=== PATIENT | male | born 1940 | race Caucasian/White ===

== ENCOUNTER 2022-01-20 09:30 | Outpatient (CLI) | payer MEDICARE, SELFPAY ==
[2022-01-20 14:23] LABS: SARS PCR* POSITIVE SARS-CoV-2 (Negative)
== END 2022-01-20 09:31 | disposition home or self-care (01) ==
LOC: KYNREF 09:31
PROVIDERS: PCP Nurse Practitioner Family; Visit Provider Nurse Practitioner Family
DX: U07.1 COVID-19 (principal); J02.9 Acute pharyngitis, unspecified
CPT/HCPCS: 87635

== ENCOUNTER 2022-02-03 15:00 | Outpatient (CLI) | payer MEDICARE, SELFPAY ==
--- OUTSIDE RECORDS SUMMARY | 2022-02-03 15:04 | XMS_ITS | Encounter Summary ---
:1940 Author Organization [facility] Address [address] [place] [address] Care Team Providers Name Role Phone Lexus Fowler M.D., M.P.H. 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 Maintenance Health Adult in [address] [facility] [address] [place], [place] [phone] (Work) [phone] Social History Tobacco Use Types Packs/Day Years Used Date Smoking Tobacco: Never Smokeless Tobacco: Never Alcohol Use Standard Drinks/Week Comments Yes 0 (1 standard drink = 0.6 oz pure alcoho l) Alcohol Habits Answer Date Recorded How often do you have a drink containing alcohol? Monthly or less 10/29/2020 How many drinks containing alcohol do you have on a Patient refused 10/29/2020 typical day when you are drinking? How often do you have six or more drinks on one Never 10/29/2020 occasion? Comment: Not asked Social Isolation Answer Date Recorded In a typical week, how many times do you talk on the Patient refused 10/29/2020 phone with family, friends, or neighbors? How often do you get together with friends or Twice a week 10/29/2020 relatives? How often do you attend hinduism or taoist services? Patien t refused 10/29/2020 Do you belong to any clubs or organizations such as Nabil borrero hinduism groups, unions, fraternal or athletic groups, or school groups? How often do you attend meetings of the clubs or Never 10/29/2020 organizations you belong to? Are you now , , , , 10/29/2020 never or living with a partner? Physical Activity Answer Date Recorded On average, how many days per week do you engage in moderate 4 days 10/29/2020 to strenuous exercise (like walking fast, running, jogging, dancing, swimming, biking, or other activities that cause a light or heavy sweat)? On average, how many minutes do you engage in exercise at No t asked this level? Stress Answer Date Recorded Do you feel stress - tense, restless, nervous, or anxious, N ot at all 10/29/2020 or unable to sleep at night because your mind is troubled all the time - these days? Financial Resource Strain Answer Date Recorded How hard is it for you to pay for the very basics like Not h oscar at all 10/29/2020 food, housing, medical care, and heating? Intimate Partner Violence Answer Date Recorded Within the last year, have you been afraid of your partner o r No 10/29/2020 ex-partner? Within the last year, have you been humiliated or emotionall y No 10/29/2020 abused in other ways by your partner or ex-partner? Within the last year, have you been kicked, hit, slapped, or No 10/29/2020 otherwise physically hurt by your partner or ex-partner? Within the last year, have you been raped or forced to have any No 10/29/2020 kind of sexual activity by your partner or ex-partner? Food Insecurity Answer Date Recorded Within the past 12 months, you worried that your food Never true 10/29/2020 would run out before you got money to buy more. Within the past 12 months, the food you bought just Patient refused 10/29/2020 didn't last and you didn't have money to get more. Transportation Needs Answer Date Recorded In the past 12 months, has lack of transportation kept you f rom No 10/29/2020 medical appointments or from getting medications? In the past 12 months, has lack of transportation kept you f rom No 10/29/2020 meetings, work, or getting things needed for daily living? Housing Stability Answer Date Recorded In the last 12 months, was there a time when you were not ab le No 10/29/2020 to pay the mortgage or rent on time? In the last 12 months, how many places have you lived? 1 10/29/2020 In the last 12 months, was there a time when you did not hav e a No 10/29/[address] sleep or slept in a usp (including now)? Education Answer Date Recorded What is the highest level of school you have completed or 12 th grade 10/29/2020 the highest degree you have received? Sex Assigned at Date Recorded Not on file documented as of this encounter Medications at Time of Discharge Medication Sig Dispensed Refills Start Date End Date amoxicillin (AMOXIL) 500 mg Take 500 mg by 0 01/15 capsule mouth once. Take 4 capsules 2 hours prior to dental procedure. ascorbic acid, vitamin C, Take 1 tablet by 0 12/15 (ascorbic acid with lacey mouth at bedtime. hips) 500 mg tablet ASPIRIN LOW DOSE ORAL Take 1 capsule by 0 017 mouth daily. B complex-vitamin (SUPER Take 1 tablet by 0 09/16 B-50) capsule mouth. blood sugar diagnostic 1 test daily. for 100 strip 3 2020 (OneTouch Ultra Blue Test testing, may Strip) strips substitute brand as needed and as covered by insurance blood-glucose meter [facility] 1 each daily. 1 each 0 08/20/19 21 calcium carbonate-vitamin Take 1 tablet by 0 09/14 D3 (CALCIUM 600 + D,3,) mouth 2 (two) 1,500 mg (600 mg times a day. calcium)-400 unit per tablet DOCOSAHEXANOIC ACID/EPA Take 1 capsule by 0 11/15 (FISH OIL ORAL) mouth 2 (two) times a day. 1200 mg capsule garlic capsule Take 1 capsule by 0 12/11/2008 mouth daily. 1200 mg ketoconazole (NIZORAL) 2 % Apply topically 0 02/14 shampoo as directed. Wash as directed; shampoo twice a week for four weeks, then use intermittently. lancets To check daily 100 each 3 08/19/2020 blood glucose MULTIVITAMIN (MULTIPLE Take 1 tablet by 0 009 VITAMINS ORAL) mouth daily. UNABLE TO FIND Diabetic 0 01/17/2020 inserts/Medicare UNABLE TO FIND Diabetic shoes/ 0 01/17/2020 Medicare MIS vitamin E 400 unit capsule Take 1 capsule by 0 mouth daily. amLODIPine (NORVASC) 5 mg Take 1 tablet (5 90 tablet 3 01/1701/23/2021 tabletIndications: mg total) by Hypertension Essential mouth daily. Primary hydroCHLOROthiazide Take 1 tablet (50 90 tablet 3 0 01/23/2021 (HYDRODIURIL) 50 mg mg total) by tabletIndications: mouth daily. Hypertension Essential Primary losartan (COZAAR) 100 mg Take 1 tablet 90 tablet 3 02/14/20 20 01/23/2021 tabletIndications: (100 mg total) by Hypertension Essential mouth daily. Primary metFORMIN (GLUCOPHAGE) 500 Take 2 tablets 180 tablet 3 08/1601/23/2021 mg tabletIndications: (1,000 mg total) Diabetes Mellitus Type 2 by mouth 2 (two) With Diabetic Neuropathy times a day with (HCC) meals. rosuvastatin (CRESTOR) 10 Take 1 tablet (10 100 tablet 3 01/23/2021 mg tabletIndications: mg total) by Hyperlipidemia mouth daily. documented as of this encounter Plan of Treatment Not on filedocumented as of this encounter Procedures Procedure Name Priority Date/Time Associated Diagnosis Comme nts SODIUM, S/P Routine 01/21/2021 8:04 AM Diabetes Mellitus Resu lts for this CDT Type 2 With Diabetic procedu re are in Neuropathy (HCC) the results section. POTASSIUM, S/P Routine 01/21/2021 8:04 AM Diabetes Mellitus Re sults for this CDT Type 2 With Diabetic procedu re are in Neuropathy (HCC) the results section. HEMOGLOBIN A1C, B Routine 01/21/2021 8:04 AM Diabetes Mellitus Results for this CDT Type 2 With Diabetic procedu re are in Neuropathy (HCC) the results section. VITAMIN B12 ASSAY, S Routine 01/21/2021 8:04 AM Maintenance He alth Results for this CDT Adult procedure are i n the results section. CREATININE WITH Routine 01/21/2021 8:04 AM Diabetes Mellitus R esults for this EGFR, S/P CDT Type 2 With Diabetic procedu re are in Neuropathy (HCC) the results section. documented in this encounter Results Vitamin B12 Assay (01/21/2021 8:04 AM CDT) athologist Signature Vitamin B12 805 180 - 914 01/22/2021 DTL Assay, S ng/L 7:23 AM CDT Comment: ----ADDITIONAL INFORMATION---- In patients being evaluated for vitamin B12 deficiency who have intrinsic factor blocking antibodie s (IFBA), false elevations of B12 may occur due to IFBA interference thus potentially obscuring a physiological de ficiency of B12. If observed B12 concentrations are disco rdant with clinical presentation, measurement of methylmalon ic acid (MMA) should be considered. Specimen Anatomical Collection Method Collection Time Receive d Time (Source) Location / / Volume Laterality Blood (Blood, 01/21/2021 8:04 AM 01/22/20 Venous) CDT 12:53 PM CDT Lexus Fowler M.D., M.P.H. LAB BLOOD ADD-ON Performing Organization Address City/[facility]/ZIP Code Phon e Number [facility] - [address] [place], [place] [address] [facility] [place] [address] Laboratories-[facility] [address] (ABNORMAL) Hemoglobin A1c (01/21/2021 8:04 AM CDT) athologist Signature Hemoglobin A1c, 6.4 (H) 4.0 - 5.6 01/21/2021 DTL B % 1:33 PM CDT Comment: Hemoglobin A1c values of 5.7-6.4 percent indicate an increased risk for developing diabetes m patrickitus. In diabetic patients, HbA1c goals should be discussed with healthcare provider. Specimen Anatomical Collection Method Collection Time Receive d Time (Source) Location / / Volume Laterality Blood (Blood, 01/21/2021 8:04 AM 01/22/20 Venous) CDT 12:52 PM CDT Lexus Fowler M.D., M.P.H. LAB BLOOD ADD-ON Performing Organization Address City/State/ZIP Code Phon e Number [facility] - [address] [place], [place] [address] [facility] [place], [place] [id number] [place] [address] (ABNORMAL) Sodium (01/21/2021 8:04 AM CDT) athologist Signature Sodium, P 133 (L) 135 - 145 01/21/2021 DTL mmol/L 1:25 PM CDT Specimen Anatomical Collection Method Collection Time Receive d Time (Source) Location / / Volume Laterality Blood (Blood, 01/21/2021 8:04 AM 01/22/20 8:04 Venous) CDT AM CDT Lexus Fowler M.D., M.P.H. LAB BLOOD ADD-ON Performing Organization Address City/[facility] Phon e Number [facility] - [address] [place], [place] [address] [facility] [place], [place] [id number] [place] [address] Potassium (01/21/2021 8:04 AM CDT) athologist Signature Potassium, P 4.9 3.6 - 5.2 01/21/2021 DTL mmol/L 1:25 PM CDT Specimen Anatomical Collection Method Collection Time Receive d Time (Source) Location / / Volume Laterality Blood (Blood, 01/21/2021 8:04 AM 01/22/20 8:04 Venous) CDT AM CDT Lexus Fowler M.D., M.P.H. LAB BLOOD ADD-ON Performing Organization Address City/State/[facility] Code Phon e Number [facility] - [address] [place], [place] [address] [facility] [address] Creatinine with Estimated GFR (01/21/2021 8:04 AM CDT) athologist Signature Creatinine 1.13 0.74 - 01/21/2021 DTL 1.35 mg/dL 1:25 PM CDT eGFR-Black/Afric 70 >=60 01/21/2021 DTL an Nepalese mL/min/BSA 1:25 PM CDT Comment: ----ADDITIONAL INFORMATION---- Estimated GFR calculated using the 2009 CKD_EPI creatinine equation. eGFR Non-Black/ 61 >=60 mL/min/BSA 1:25 PM CDT DTL Comment: ----ADDITIONAL INFORMATION---- Estimated GFR calculated using the 2009 CKD_EPI creatinine equation. Specimen Anatomical Collection Method Collection Time Receive d Time (Source) Location / / Volume Laterality Blood (Blood, 01/21/2021 8:04 AM 01/22/20 8:04 Venous) CDT AM CDT Lexus Fowler M.D., M.P.H. LAB BLOOD ADD-ON Performing Organization Address City/State/ZIP Code Phon e Number [facility] - [address] [place] [address] [facility] [place] [address] Laboratories-[address] documented in this encounter Visit Diagnoses Diagnosis Diabetes Mellitus Type 2 With Diabetic N europathy ([facility]) Maintenance Health Adult documented in this encounter Care Teams Sorority Supervisor Relationship Specialty Start Date End Date Lexus Fowler M.D., M.P.H. PCP - General 11/14/18 11/13/21 [address] [place] [address] documented as of this encounter
--- OUTSIDE RECORDS SUMMARY | 2022-02-03 15:04 | XMS_ITS | Encounter Summary ---
:[address] [facility] Address [address] [place] [address] Care Team Providers Name Role Phone Lexus Fowler M.D., M.P.H. Primary Care Provider [phone] Encounter Details Date Type Department Care Team Description 01/22/2021 Orders Only Department of Family Lexus Fowler, Hyponatremia (Primary Medicine, [facility] Alonso, M.P. H. Dx) [facility], [place] [address] [place] [address] [address] [facility] [address] [place] [address] [phone] Social History Tobacco Use Types Packs/Day Years [...] 10/29/2020 relatives? How often do you attend evangelical or jainism services? Patien t refused 10/29/2020 Do you belong to any clubs or organizations such as Not aske d evangelical groups, unions, fraternal or athletic groups, or [...] place to sleep or slept in a [facility] (including now)? Education Answer Date Recorded What is the highest level of school you have completed or 12 th grade 10/29/2020 the highest degree you have received? Sex Assigned at Date Recorded Not on file documented as of this encounter Plan of Treatment Not on filedocumented as of this encounter Visit Diagnoses Diagnosis Hyponatremia - Primary documented in this encounter Care Teams Economic Adviser Relationship Specialty Start Date End Date Lexus Fowler M.D., M.P.H. PCP - General 11/14/18 11/13/21 [address] [place] [address] documented as of this encounter
--- OUTSIDE RECORDS SUMMARY | 2022-02-03 15:04 | XMS_ITS | Encounter Summary ---
:1940 Author Organization [facility] Address [address] [place] [address] Care Team Providers Name Role Phone Eliezer RYAN D.O., Fred P Primary Care Provider Reason for Visit Reason Comments Med Refill Encounter Details Date Type Department Care Team Description 11/19/2021 Refill Department of [facility] Med Duff M .D., Med Refill Medicine, [facility]on [facility] [address] [place] [address] [address] [place] [address] [place] [address] [phone] Social History Tobacco Use Types Packs/Day Years [...] 10/29/2020 relatives? How often do you attend shinto or advent services? Patien t refused 10/29/2020 Do you belong to any clubs or organizations such as Nabil borrero shinto groups, unions, fraternal or athletic groups, or [...] place to sleep or slept in a [place] [facility] (including now)? Education Answer Date Recorded What is the highest level of school you have completed or 12 th grade 10/29/2020 the highest degree you have received? Sex Assigned at Date Recorded Not on file documented as of this encounter Plan of Treatment Not on filedocumented as of this encounter Visit Diagnoses Diagnosis Hypertension Essential Primary documented in this encounter Care Teams Special Needs Child Caregiver Relationship Specialty Start Date End Date Marco Martins IV, D.OClarence PCP - General 11/14/21 [address] [place] [id number] documented as of this encounter
--- OUTSIDE RECORDS SUMMARY | 2022-02-03 15:04 | XMS_ITS | Encounter Summary ---
:1940 Author Organization [facility] Address [address] [place] [address] Care Team Providers Name Role Phone Lexus Fowler M.D., M.P.H. Primary Care Provider [phone] Encounter Details Date Type Department Care Team Description 01/01/2021 Orders Only Department of Family Lexus Fowler, [facility] Medicine, [facility] Alonso, M.P. H. Adult (Primary Dx) [facility] [place], in [address] [place] [address] [address] [facility] [address] [place] [address] [phone] Social History Tobacco Use Types Packs/Day Years [...] 10/29/2020 relatives? How often do you attend oriental orthodox or holiness services? Patien t refused 10/29/2020 Do you belong to any clubs or organizations such as Not aske d oriental orthodox groups, unions, fraternal or athletic groups, or [...] place to sleep or slept in a residential (including now)? Education Answer Date Recorded What is the highest level of school you have completed or 12 th grade 10/29/2020 the highest degree you have received? Sex Assigned at Date Recorded Not on file documented as of this encounter Plan of Treatment Not on filedocumented as of this encounter Results Vitamin B12 Assay (01/21/2021 8:04 AM CDT) athologist Signature Vitamin B12 809 695 - 690 01/22/2021 DTL Assay, S ng/L 7:23 AM [...] Laterality Blood (Blood, 01/21/2021 8:04 AM 01/22/20 21 Venous) CDT 12:53 PM CDT Lexus Fowler M.D., M.P.H. LAB BLOOD ADD-ON Performing Organization Address City/State/ZIP Code Phon e Number [facility] - [address] [place], [place] [address] [facility] [place] [address] Laboratories-[facility] [address] documented in this encounter Visit Diagnoses Diagnosis Maintenance Health Adult - Primary documented in this encounter Care Teams Credit Associate Relationship Specialty Start Date End Date Lexus Fowler M.D., M.P.H. PCP - General 11/14/18 11/13/[address] [place] [address] documented as of this encounter
--- OUTSIDE RECORDS SUMMARY | 2022-02-03 15:04 | XMS_ITS | Clinical Summary ---
:1940 Author Organization [facility] Address [address] [place] [address] Care Team Providers Name Role Phone Eliezer RYAN D.O., Fred P Primary Care Provider Source Comments Patient records contain information from all sites at [facility]. For routine questions regarding patient records, call [phone] during business hours, M-F 8:00 AM - 5:00 PM Central Time. Record requests for emergency care only can be directed to [phone] at any time.[facility] Allergies No known active allergies Medications Medication Sig Dispensed Refills Start Date End Date Status ASPIRIN LOW DOSE ORAL Take 1 capsule 0 09/11/2016 Active by mouth daily. calcium carbonate-vitamin Take 1 tablet 0 09/24/2009 Active D3 (CALCIUM 600 + D,3,) by mouth 2 1,500 mg (600 mg (two) times a calcium)-400 unit per day. tablet DOCOSAHEXANOIC ACID/EPA Take 1 capsule 0 11/15/2009 Active (FISH OIL ORAL) by mouth 2 (two) times a day. 1200 mg capsule garlic capsule Take 1 capsule 0 12/11/2008 Active by mouth daily. 1200 mg MULTIVITAMIN (MULTIPLE Take 1 tablet 0 09/05/2008 Active VITAMINS ORAL) by mouth daily. ketoconazole (NIZORAL) 2 Apply topically 0 7 Active % shampoo as directed. Wash as directed; shampoo twice a week for four weeks, then use intermittently. ascorbic acid, vitamin C, Take 1 tablet 0 12/25/2013 Active (ascorbic acid with lacey by mouth at hips) 500 mg tablet bedtime. vitamin E 400 unit Take 1 capsule 0 02/15/2008 Active capsule by mouth daily. B complex-vitamin (SUPER Take 1 tablet 0 09/16/2010 Active B-50) capsule by mouth. UNABLE TO FIND Diabetic 0 01/17/2020 Acti ve inserts/Medicar e UNABLE TO FIND Diabetic shoes/ 0 01/17/2020 Active Medicare MIS amoxicillin (AMOXIL) 500 Take 500 mg by 0 01/29/2020 Active mg capsule mouth once. Take 4 capsules 2 hours prior to dental procedure. lancets To check daily 100 each 3 08/19/2020 Acti ve blood glucose blood-glucose meter misc 1 each daily. 1 each 0 08/19/2020 Active blood sugar diagnostic 1 test daily. 100 strip 3 08/19/2020 Active (Training [employer] Blue Test for testing, Strip) strips may substitute brand as needed and as covered by insurance rosuvastatin (CRESTOR) 10 Take 1 tablet 100 tablet 3 1 Active mg tabletIndications: (10 mg total) Hyperlipidemia by mouth daily. metFORMIN (GLUCOPHAGE) TAKE 2 TABLETS 360 tablet 3 07/16/2021 Active 500 mg tabletIndications: BY MOUTH TWICE Diabetes Mellitus Type 2 DAILY WITH With Diabetic Neuropathy MEALS (HCC) hydroCHLOROthiazide TAKE 1 TABLET 90 tablet 3 11/20/2021 Active (HYDRODIURIL) 50 mg BY MOUTH DAILY tabletIndications: Hypertension Essential Primary amLODIPine (NORVASC) 5 mg TAKE 1 TABLET 90 tablet 3 11/20/2021 Active tabletIndications: BY MOUTH DAILY Hypertension Essential Primary losartan (COZAAR) 100 mg TAKE 1 TABLET 90 tablet 3 11/20/2021 Active tabletIndications: BY MOUTH DAILY Hypertension Essential Primary Active Problems Problem Noted Date Lesion Skin Face 10/29/2020 Last Assessment & Plan: Formatting of th is note might be different from the original. He has numerous face lesions, the brown spot on the temporal region appears to be a seborrheic keratosis. There are no concerning features on exam. He would still like this to be treated today. He also has scattered actinic keratoses, these w ere treated with cryotherapy. Please see procedure note for full details. We discussed that if cryotherapy does not take care of the seborrheic keratosis, we coul d continue to observe, or could proceed with shave biopsy for full removal. Diabetes Mellitus 2 Ulcer Toe 08/16/2020 Maintenance Health Adult 03/10/2019 Last Assessment & Plan: Formatting of th is note might be different from the original. He is due for an eye exam, this is sched uled for 11/26/2020. He is due for his 3rd hepatitis B vaccine, he will get this at the end of his visit. 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 Regarding D5 criteria, Blood pressure: BP 134/66 (BP Location: Right arm, Patient Position: Sitting, Cuff Size: Large) Statin: rosuvastatin 10 mg A1c: Lab Results Component Value Date HGBA1C 6.4 (H) 01/21/2021 Aspirin: ASA 81 mg Tobacco: Never smoker Lab Results Component Value Date UMCROALBCONC 13.2 03/08/2019 CREATININEUR 63 01/21/2021 ALBCREARATIO 13 01/21/2021 Current Meds: metformin 1000 mg bid Last Assessment & Plan: Currently a 5/5 of the D5 criteria. No m edication changes at this time. He continues to do well. Will plan on following up with the patient in 6 meds per the normal follow-up schedule for his diabetes and hypertension. 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 Well managed on current regimen of amlod ipine 5 mg daily, losartan 100 mg daily, hydrochlorothiazide 50 mg daily. No changes necessary at this time. 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 Most recent A1c 6.7% on 02/02/2020. Currently taking metformin 500mg bid. No tobacco use. Macrovascular complications include hypertension, dyslipidemia. Currently taking baby aspirin, crestor 10mg qhs and losartan 100mg manas ly. No Microvascular complications. Last Assessment & Plan: He continues to do well from a diabetic standpoint. We will plan to see him back in 6 months time with a A1c ordered prior to his visit. [place] D5 for Diabetes: 1. Blood pressure (<140/90): 127/65, at goal 2. Taking a statin as recommended: On Cr estor 10 mg daily 3. A1c <8%: 6.7 on 02/12/2020 4. Tobacco use: none, at goal 5. Take ASA as recommended: on ASA 81 mg daily, at goal Psoriasis 01/29/2004 Hyperlipidemia 02/28/2003 Last Assessment & Plan: Formatting of th is note might be different from the original. Has history of hyperlipidemia, the full controlled on his Crestor 10 mg daily. Will plan to recheck lipids. Resolved Problems Problem Noted Date Resolved Date Diabetes Mellitus Type 2 Ulcer Foot 10/13/201702/14 Encounters Date Type Specialty Care Team Description 01/27/2022 Orders Only Family Medicine Marshal Martínez, Diabet es Mellitus Type 2 R.N. With Diabetic N europathy (HCC) (Primary Dx) 11/19/2021 Refill Family Medicine Med Duff, Med Re sheeba M.Sebastian, J.D. from Last 3 Months Immunizations Name Administration Dates Next Due H1N1 All Forms 04/25/2009 HZV (ZOSTAVAX) 12/10/2008 HepB Adult 12/26/2019, 09/28/2019 (Deferred: Patient Refused), 03/10/2019, 03/10/2019 (Deferred: Patient Refused) HepB Adult (HEPLISAV-B) 10/29/2020 Influenza, Quadrivalent, Adjuvanted, 01/04/2020 Preservative Free PCV13 09/13/2014 PPSV23 12/23/2004 RZV (SHINGRIX) 11/10/2017, 09/09/2017 SARS-COV-2 (COVID-19) - PFIZER (12 08/06/2020 years or older) Td, (Adult) Unspecified 09/05/2008, 05/17/1998 Tdap 02/23/2012 influenza high dose (65 years or 02/28/2019, 02/18/2018, older) (PF) Family History Medical History Relation Name Comments Glaucoma Neg Hx Macular degeneration Neg Hx Social History Tobacco Use Types Packs/Day Years [...] 10/29/2020 relatives? How often do you attend quaker or hoahaoism services? Patien t refused 10/29/2020 Do you belong to any clubs or organizations such as Nabil borrero quaker groups, unions, fraternal or athletic groups, or [...] place to sleep or slept in a penitentiary (including now)? Education Answer Date Recorded What is the highest level of school you have completed or 12 th grade 10/29/2020 the highest degree you have received? Sex Assigned at Date Recorded Not on file Last Filed Vital Signs Vital Sign Reading Time Taken Comments Blood Pressure 134/66 01/23/2021 8:23 AM CDT Pulse 56 01/23/2021 8:23 AM CDT Temperature - - Respiratory Rate 14 12/27/2013 3:38 PM Value from Jose Alejandro sheikh. CDT Oxygen Saturation - - Inhaled Oxygen - - Concentration Weight 91.7 kg (202 lb 2.6 01/23/2021 8:23 AM oz) CDT Height 180.5 cm (5' 11.06) 09/22/2018 1:36 PM CDT Body Mass Index 28.15 09/22/2018 1:36 PM CDT Plan of Treatment Health Maintenance Due Date Last Done Comments Dilated Eye Exam 12/15/2020 12/16/2019 (Performed elsewhere), 09/13/2018, 01/29/2017 COVID-19 Vaccine (4 - Booster for 04/30/2021 03/05/2021, , Pfizer series) 08/06/2020 Depression Screening (Annual 05/17/2021 PHQ-2) Fall Risk Screen (Annual) 05/17/2021 Hemoglobin A1C 07/21/2021 01/21/2021, 08/15/2020, 02/12/2020, Additional history exists Diabetic Office Visit with Foot 08/16/2021 08/16/2020, 09/14, Exam 03/06/2019 Creatinine Level 01/21/2022 01/21/2021, 02/14/2020, 03/10/2019, Additional history exists Potassium Level 01/21/2022 01/21/2021, 02/14/2020, 03/10/2019, Additional history exists Sodium Level 01/21/2022 01/21/2021, 02/14/2020, 03/10/2019, Additional history exists Urine Albumin 01/21/2022 01/21/2021, 02/14/2020, 03/08/2019, Additional history exists Office Visit for Blood Pressure 01/23/2022 01/23/2021 Check / Re-check Visit: Chronic Disease, age 18+ 01/23/2022 01/23/2021, 09/0 01/2021 Influenza Vaccine (#1) 2022 01/21/2021, 01/04/2020, 02/28/2019, Additional history exists DTaP,Tdap,and Td Vaccines (2 - Td 02/22/2022 02/23/2012, , or Tdap) 05/17/1998 Pneumococcal vaccine (65+ years) Completed 09/13/2014, 01/2005 Zoster Vaccines Completed 11/10/2017, 09/09/2017, 12/10/2008 Hepatitis B Vaccines Completed 10/29/2020, 12/26/2019, 09/28/2019, Additional history exists Medical Devices Implanted Type Area Marble Mechanic Helper Device Shelf Model / Identifier Expiration Serial / Date Lot J J Sig Tib Poly Stab #4 10.0m - Giordano [id number] Knee Implant Gonzalez son & Implanted: Qty: 1 on 12/19/2004 [employer] Description: Device Marble Mechanic Helper - Weroom. Device Status Text - KNEE [id number]. J J Patella Rev Round 35m - Giordano [id number] Knee Implant Other/Le gacy - See Hairdressr & Hairdressr Implanted: Qty: 1 on 12/25/2013 Implant Description Services Inc Description: Device Marble Mechanic Helper - Weroom. Body Location - Other. Right. Device Status Text - KNEE [id number]. Cement Bone Large - Giordano 2840 Misc Other [place] Implanted: Qty: 2 on 12/19/2004 Description: Device Marble Mechanic Helper - Stryk er Jordon.. Device Status Text - [id number]. Cement Bone Large - Giordano 2840 Misc Other [place] Implanted: Qty: 2 on 12/25/2013 Description: Device Marble Mechanic Helper - Stryk er Jordon.. Device Status Text - [id number]. Insurance Payer Benefit Plan / Subscriber ID Effective Dates Phone Addre ss Type Group AARP AAR MEDICARE [id number] 2020-Present [phone] [address] [address] [place] [address] (Home) [place] [address] Advance Directives For more information, please contact: [phone] Documents on File Type Date Recorded Patient Residential Interior Designer Explanati on Advance Directives 12/12/2004 12:00 AM Legacy doc ument. See document viewer. Care Teams Pulverizer Operator Relationship Specialty Start Date End Date Marco Martins IV DClarenceO. PCP - General 11/14/21 [address] [place] [address]
--- OUTSIDE RECORDS SUMMARY | 2022-02-03 15:04 | XMS_ITS | Encounter Summary ---
:1940 Author Organization [facility] Address [address] [place] [address] Care Team Providers Name Role Phone Lexus Fowler M.D., M.P.H. Primary Care Provider [phone] Reason for Visit Reason Comments Pre-visit Testing Orders Encounter Details Date Type Department Care Team Description 01/01/2021 Clinical Department of Lexus Fowler Pre-visit Testing Communication Family MedicineMaikol M.D., M.P.H. Orders [facility] [address] [facility] [address] [address] [facility] [phone] [place], [place] (Work) [phone] Social History Tobacco Use Types Packs/Day Years [...] 10/29/2020 relatives? How often do you attend cheondoism or christian services? Patien t refused 10/29/2020 Do you belong to any clubs or organizations such as Nabil borrero cheondoism groups, unions, fraternal or athletic groups, or [...] place to sleep or slept in a senior living (including now)? Education Answer Date Recorded What is the highest level of school you have completed or 12 th grade 10/29/2020 the highest degree you have received? Sex Assigned at Date Recorded Not on file documented as of this encounter Miscellaneous Notes Telephone Encounter - Lexus Fowler M.D., M.P.H. - 01/01/2021 2:42 PM CDT Ordered B12 level per patient preference Telephone Encounter - Rossy Bernal - 01/01/2021 2:30 PM CDT Caller: pt Callback Number: [phone] Best communication method: call Pharmacy: Request/Details: Pt has labs on 01-21 He is asking for a B-12 labs to be added to that appt. Thanks! Please respond to RST [facility]ASITY Scheduling pool if necessary documented in this encounter Plan of Treatment Not on filedocumented as of this encounter Visit Diagnoses Not on filedocumented in this encounter Care Teams Slipman Relationship Specialty Start Date End Date Lexus Fowler M.D., M.P.H. PCP - General 11/14/18 11/13/21 [address] [place] [address] documented as of this encounter
--- OUTSIDE RECORDS SUMMARY | 2022-02-03 15:04 | XMS_ITS | Encounter Summary ---
:1940 Author Organization [facility] Address [address] [place] [address] Care Team Providers Name Role Phone Lexus Fowler M.D., M.P.H. Primary Care Provider [phone] Reason for Visit Reason Comments Med Refill Encounter Details Date Type Department Care Team Description 07/15/2021 Refill Department of Med Gibson M .D., Med Refill Medicine, [facility] brandon Cameron M [facility] [address] [place] [address] [place] [address] [place] [address] [phone] Social History Tobacco Use Types Packs/Day Years [...] 10/29/2020 relatives? How often do you attend yazidi or oriental orthodox services? Patien t refused 10/29/2020 Do you belong to any clubs or organizations such as Nabil borrero yazidi groups, unions, fraternal or athletic groups, or [...] place to sleep or slept in a chcf (including now)? Education Answer Date Recorded What is the highest level of school you have completed or 12 th grade 10/29/2020 the highest degree you have received? Sex Assigned at Date Recorded Not on file documented as of this encounter Plan of Treatment Not on filedocumented as of this encounter Visit Diagnoses Diagnosis Diabetes Mellitus Type 2 With Diabetic N europathy (HCC) documented in this encounter Care Teams Environmental Designer Relationship Specialty Start Date End Date Lexus Fowler M.D., M.P.H. PCP - General 11/14/18 11/13/21 [address] [place] [address] documented as of this encounter
--- OUTSIDE RECORDS SUMMARY | 2022-02-03 15:04 | XMS_ITS | Encounter Summary ---
:[address] [facility] Address [address] [place] [address] Care Team Providers Name Role Phone Eliezer RYAN D.O., Marco Monae Primary Care Provider Reason for Referral Outpatient (Routine) - Authorized Specialty Diagnoses / Procedures Referred By Contact Refer red To Contact Family Medicine Marco Martins IV, D. O. [place] [address] [place] [address] Referral ID Status Reason Start Date Expiration Date Visits V isits Requested Authorized [id number] Authorized 01/28/2022 01/27/2025 1 1 Scheduling Instructions Schedule 1-2 days after labs if possible Diabetes followup Encounter Details Date Type Department Care Team Description 01/27/2022 Orders Only Department of Family Marshal Martínez Diab etes Mellitus Type Medicine, [facility] R, R.N. 2 With Diabetic Clinic [place], [place] [address] [facility] Neuropathy (HCC) [place], [place] (Primary Dx) [address] [facility] [address] [place] [address] [phone] Social History Tobacco Use Types Packs/Day Years [...] 10/29/2020 relatives? How often do you attend scientologist or jewish services? Patien t refused 10/29/2020 Do you belong to any clubs or organizations such as Nabil borrero scientologist groups, unions, fraternal or athletic groups, or [...] as of this encounter Plan of Treatment Scheduled Orders Name Type Priority Associated Diagnoses Order S chedule Hemoglobin A1c Lab Routine Diabetes Mellitus Type 2 E xpected: 02/02/2022 With Diabetic Neuropathy (Ap proximate), (HCC) Expires: 2022 Potassium Lab Routine Diabetes Mellitus Type 2 Exp ected: 02/02/2022 With Diabetic Neuropathy (Ap proximate), (HCC) Expires: 2022 Sodium Lab Routine Diabetes Mellitus Type 2 Exp ected: 02/02/2022 With Diabetic Neuropathy (Ap proximate), (HCC) Expires: 2022 Creatinine with Estimated Lab Routine Diabetes Mellit us Type 2 Expected: 02/02/2022 GFR With Diabetic Neuropathy (Ap proximate), (HCC) Expires: 2022 Albumin, Random, Urine Lab Routine Diabetes Mellitus Type 2 Expected: 02/02/2022 With Diabetic Neuropathy (Ap proximate), (HCC) Expires: 2022 Scheduled Referrals Name Type Priority Associated Diagnoses Order S [facility] Medicine Outpatient Referral Routine Expec margoth: office visit 02/02/2022 (clinic) (Approximate), Expires: 04/28/2023 documented as of this encounter Visit Diagnoses Diagnosis Diabetes Mellitus Type 2 With Diabetic N europathy (HCC) - Primary documented in this encounter Care Teams Commercial Loan Processor Relationship Specialty Start Date End Date Marco Martins IV, D.OClarence PCP - General 11/14/[address] [place] [phone] documented as of this encounter
--- OUTSIDE RECORDS SUMMARY | 2022-02-03 15:04 | XMS_ITS | Encounter Summary ---
:1940 Author Organization [facility] Address [address] [place] [address] Care Team Providers Name Role Phone Lexus Fowler M.D., M.P.H. Primary Care Provider [phone] Reason for Visit Reason Comments Diabetes Hypertension Outpatient (Routine) - Closed Specialty Diagnoses / Procedures Referred By Contact Refer red To Contact Family Medicine Lexus Fowler M.D., [facility] M.P.H. [address] [place] [phone] Referral ID Status Reason Start Date Expiration Date Visits Requ ested Visits Authorized [id number] Closed 08/16/2020 08/16/2021 1 1 Encounter Details Date Type Department Care Team Description 01/23/2021 Office Visit Department of Med Gibson H ypertension Essential Primary; Medicine, [facility] Alonso, Evei Hyperlipidemia; [place], [place] [address] [place] [address] Diabetes Mellitus Type 2 With Diabetic N europathy (HCC) [place], [place] [address] [facility] [address] [place] [address] [phone] Social History Tobacco Use Types Packs/Day Years [...] 10/29/2020 relatives? How often do you attend temple or adventist services? Patien t refused 10/29/2020 Do you belong to any clubs or organizations such as Nabil borrero temple groups, unions, fraternal or athletic groups, or [...] place to sleep or slept in a fci (including now)? Education Answer Date Recorded What is the highest level of school you have completed or 12 th grade 10/29/2020 the highest degree you have received? Sex Assigned at Date Recorded Not on file documented as of this encounter Last Filed Vital Signs Vital Sign Reading Time Taken Comments Blood Pressure 134/66 01/23/2021 8:23 AM CDT Pulse 56 01/23/2021 8:23 AM CDT Temperature - - Respiratory Rate - - Oxygen Saturation - - Inhaled Oxygen Concentration - - Weight 91.7 kg (202 lb 2.6 oz) 01/23/2021 8:23 AM CDT Height - - Body Mass Index 28.15 09/22/2018 1:36 PM CDT documented in this encounter Progress Notes Med Duff M.D., J.D. - 01/23/2021 8:30 AM CDT SUBJECTIVE CHIEF COMPLAINT / REASON FOR VISIT Vinayak Vazquez is a 80 y.o. male who presents for evaluation of Diabetes and Hypertension. HISTORY OF PRESENT ILLNESS Vinayak Vazquez is a 80 y.o. male with past medical history notable for type 2 diabetes and hypertension who presents to clinic today for diabetic and hypertensive follow-up. Overall, patient states he is doing well. He has no acute concerns at this time. Denies any symptoms of hypoglycemia. He denies po lyuria or polydipsia. He has been tolerating his medications without issue. All other review of systems completed and negative. The following portions of the patient's history were reviewed and updated as appropriate: allergies,current medications, family history, medical history, social history, surgical history, and problem list. OBJECTIVE VITALS BP 134/66 (BP Location: Right arm, Patient Position: Sitting, Cuff Size: Large) Pulse (!) 56 Wt 91.7 kg BMI 28.15 kg/m?? PHYSICAL EXAM General: Alert and oriented x 3, no acute distress, appears stated age Head: Normocephalic, atraumatic Eyes: conjunctiva clear Nose: No drainage or congestion Neck: Supple Cardiac: Heart regular rate and rhythm, no murmur, no rub, no gallop Pulmonary: No respiratory distress Abdomen: Soft, nondistended Musculoskeletal: No obvious deformity, edema, or injury Skin: Skin is warm, dry, and intact. No lesions or rashes appreciated. Neurologic: No focal defects Psychiatric: Mood, affect, and behavior appropriate and congruent ASSESSMENT / PLAN #1 Hypertension Essential Primary - amLODIPine (NORVASC) 5 mg tablet; Take 1 tablet (5 mg total) by mouth daily., Starting Wed01/23/2021, Normal - hydroCHLOROthiazide (HYDRODIURIL) 50 mg tablet; Take 1 tablet (50 mg total) by mouth daily., Starting Wed01/23/2021, Normal - losartan (COZAAR) 100 mg tablet; Take 1 tablet (100 mg total) by mouth daily., Starting Wed01/23/2021, Normal #2 Hyperlipidemia - rosuvastatin (CRESTOR) 10 mg tablet; Take 1 tablet (10 mg total) by mouth daily., Starting Wed01/23/2021, Normal #3 Diabetes Mellitus Type 2 With Diabetic Neuropathy (HCC) Overview: Regarding D5 criteria, Blood pressure: BP 134/66 (BP Location: Right arm, Patient Position: Sitting, Cuff Size: Large) Statin: rosuvastatin 10 mg A1c: Lab Results Component Value Date HGBA1C 6.4 (H) 01/21/2021 Aspirin: ASA 81 mg Tobacco: Never smoker Lab Results Component Value Date UMCROALBCONC 13.2 03/08/2019 CREATININEUR 63 01/21/2021 ALBCREARATIO 13 01/21/2021 Current Meds: metformin 1000 mg bid Assessment & Plan: Currently a 5/5 of the D5 criteria. No medication changes at this time. He continues to do well. Will plan on following up with the patient in 6 meds per the normal follow-up schedule for his diabetes and hypertension. Orders: - metFORMIN (GLUCOPHAGE) 500 mg tablet; Take 2 tablets (1,000 mg total) by mouth 2 (two) times a daywith meals., Starting Awa 01/23/2021, Normal Other orders - Family Medicine office visit (clinic) - Family Medicine office visit (clinic); Future; Expected date: 07/23/2021 I spent a total of 30 minutes on the day of the visit. documented in this encounter Miscellaneous Notes Assessment & Plan Note - Med Duff M.D., J.D. - 01/23/2021 10:00 AM CDT Associated Problem(s): Diabetes Mellitus Type 2 With Diabetic Neuropathy (HCC) Currently a 5/5 of the D5 criteria. No medication changes at this time. He continues to do well. Will plan on following up with the patient in 6 meds per the normal follow-up schedule for his diabetes and hypertension. documented in this encounter Plan of Treatment Not on filedocumented as of this encounter Visit Diagnoses Diagnosis Hypertension Essential Primary Hyperlipidemia Diabetes Mellitus Type 2 With Diabetic N europathy (HCC) documented in this encounter Care Teams Agriculture Intern Relationship Specialty Start Date End Date Lexus Fowler M.D., M.P.H. PCP - General 11/14/18 11/13/[address] [place] [address] documented as of this encounter
--- OUTSIDE RECORDS SUMMARY | 2022-02-03 15:04 | XMS_ITS | Encounter Summary ---
:[address] [facility] Address [address] [place] [address] Care Team Providers Name Role Phone Lexus Fowler M.D., M.P.H. Primary Care Provider [phone] Encounter Details Date Type Department Care Team Description 01/21/2021 Hospital Encounter Department of Lexus Fowler Diab etes Mellitus Laboratory Medicine Alonso Lassiter, M.P .H. Type [address] Diabetic Neuropathy [place], [place] ([facility]) [address] [facility] [address] [place], [place] [phone] [phone] (Work) [phone] Social History Tobacco Use Types Packs/Day Years [...] 10/29/2020 relatives? How often do you attend sabianist or muslim services? Patien t refused 10/29/2020 Do you belong to any clubs or organizations such as Not aske d sabianist groups, unions, fraternal or athletic groups, or [...] place to sleep or slept in a correction (including now)? Education Answer Date Recorded What [...] and as covered by insurance blood-glucose meter [facility] 1 each daily. 1 each 0 08/20/19 [...] With Diabetic Neuropathy times a day with ([facility]) meals. rosuvastatin (CRESTOR) 10 Take 1 tablet (10 100 tablet 3 01/23/2021 mg tabletIndications: mg total) by Hyperlipidemia mouth daily. documented as of this encounter Plan of Treatment Not on filedocumented as of this encounter Procedures Procedure Name Priority Date/Time Associated Diagnosis Comme nts ALBUMIN, RANDOM, U Routine 01/21/2021 8:33 AM Diabetes Mellitu s Results for this CDT Type 2 With Diabetic procedu re are in Neuropathy (HCC) the results section. documented in this encounter Results Albumin, Random, Urine (01/21/2021 8:33 AM CDT) P athologist Signature Albumin, 8.1 mg/L 01/22/2021 DTL Random, U 9:50 AM CDT Comment: ----ADDITIONAL INFORMATION---- This test has been modified from the valentin hurtado's instructions. Its performance characteri stics were determined by [facility] in a manner co nsistent with CLIA requirements. This test has not bee n cleared or approved by the U.S. Food and Drug Admin istration. Creatinine 63 mg/dL 01/21/2021 3:38 PM CDT DTL Albumin/Creatinine Ratio 13 <17 mg/g 01/22/2021 9:50 AM CDT DTL Specimen Anatomical Collection Method Collection Time Receive d Time (Source) Location / / Volume Laterality Urine (Urine, 01/21/2021 8:33 AM 01/22/20 3:14 Clean Catch) CDT PM CDT Lexus Fowler M.D., M.P.H. 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 PCP - General 11/14/18 11/13/[address] [place] [address] documented as of this encounter
--- OUTSIDE RECORDS SUMMARY | 2022-02-03 15:04 | XMS_ITS | Encounter Summary ---
:1940 Author Organization [facility] Address [address] [place] [address] Care Team Providers Name Role Phone Lexus Fowler M.D., M.P.H. Primary Care Provider [phone] Encounter Details Date Type Department Care Team Description 10/29/2020 Ancillary Procedure Department of Family Medicine Social History Tobacco Use Types Packs/Day Years [...] 10/29/2020 relatives? How often do you attend judaism or islam services? Patien t refused 10/29/2020 Do you belong to any clubs or organizations such as Nabil borrero judaism groups, unions, fraternal or athletic groups, or [...] Name Priority Date/Time Associated Diagnosis Comme nts FAMILY MEDICINE Routine 10/29/2020 9:40 AM Result s for this IMAGE EXAM CDT procedure are i n the results section. documented in this encounter Results Face 507-Family Medicine Image Exam (10/29/2020 9:40 AM CDT) Specimen (Source) Anatomical Collection Method Collection Time Re ceived Time Location / / Volume Laterality 10/29/2020 9:38 AM CDT Narrative [facility] - 10/29/2020 9:42 AM CDT This order has been created and auto-finalized to support the import of images acquired without order. The clini palmer documentation to support these images can be found on the encounter alize t produced images. Provider Not In System IMG NON RAD IMAGING PROCEDUR ES Performing Organization Address City/State/ZIP Code Phon e Number [facility] NA documented in this encounter Visit Diagnoses Not on filedocumented in this encounter Care Teams Mason Helper Relationship Specialty Start Date End Date Lexus Fowler M.D., M.P.H. PCP - General 11/14/18 11/13/21 [address] [place] [address] documented as of this encounter
--- OUTSIDE RECORDS SUMMARY | 2022-02-03 15:04 | XMS_ITS | Encounter Summary ---
:1940 Author Organization [facility] Address [address] [place] [address] Care Team Providers Name Role Phone Lexus Fowler M.D., M.P.H. Primary Care Provider [phone] Reason for Referral Specialty Diagnoses / Procedures Referred By Contact Refer red To Contact Lexus Fowler M.D., M.P.H. [facility] [address] [place] [phone] Referral ID Status Reason Start Date Expiration Date Visits Requ ested Visits Authorized Encounter Details Date Type Department Care Team Description 10/01/2021 Orders Only RST PCP HLTH MNT Shivani Fowler M.D., M.P.H. [address] [place] [address] [phone] (Wo rk) Social History Tobacco Use Types Packs/Day Years [...] often do you attend oriental orthodox or congregation services? Patien t refused 10/29/2020 Do you belong to any clubs or organizations such as Nabil borrero oriental orthodox groups, unions, fraternal or athletic [...] place to sleep or slept in a jail (including now)? Education Answer Date Recorded What is the highest level of school you have completed or 12 th grade 10/29/2020 the highest degree you have received? Sex Assigned at Date Recorded Not on file documented as of this encounter Plan of Treatment Scheduled Referrals Name Type Priority Associated Order Schedule Diagnoses Covid immunization Outpatient Referral Routine Ex pected: office visit Booster 022 (Approximate), Expires: 10/01/2022 documented as of this encounter Visit Diagnoses Not on filedocumented in this encounter Care Teams Choker Setter Relationship Specialty Start Date End Date Lexus Fowler M.D., M.P.H. PCP - General 11/14/18 11/13/21 [address] [place] [address] documented as of this encounter
--- OUTSIDE RECORDS SUMMARY | 2022-02-03 15:05 | XMS_ITS | Encounter Summary ---
:1940 Author Organization [facility] Address [address] [place] [address] Care Team Providers Name Role Phone Lexus Fowler M.D., M.P.H. Primary Care Provider [phone] Reason for Visit Outpatient (Routine) - Closed Specialty Diagnoses / Procedures Referred By Contact Refer red To Contact Vascular Medicine Sherry Slater APRN, [facility] C.N.P., M.S.N. [address] [place] [phone] Referral ID Status Reason Start Date Expiration Date Visits Requ ested Visits Authorized [id number] Closed 01/15/2020 01/14/2021 1 1 Encounter Details Date Type Department Care Team Description 02/06/2020 Nurse Only Department of Vascular Sherry Slater APRN, C.N.P., M.S.N. [address] [place] [phone] Medicine in [place], Melissa Chatterjee R.N. [address] [place] [phone] [phone] Social History Tobacco Use Types Packs/Day Years [...] How often do you attend sabianist or islam services? Patien t refused 10/29/2020 Do you belong to any clubs or organizations such as Nabil borrero sabianist groups, unions, fraternal or athletic groups, [...] place to sleep or slept in a fdc (including now)? Sex Assigned at Date Recorded Not on file documented as of this encounter Patient Instructions Patient InstructionsBainMelissa R.N. - 02/06/2020 9:00 AM CDT Wound Location: Right great toe 1. Wash hands. 2. Remove old dressings. 3. Gently cleanse ulcer base with normal saline and rough gauze in a circular motion. 4. Apply Iodosorb/Hydrogel (75:25) mixture to ulcer base (There will be some staining of the skin from the Iodosorb). 5. Cover with a THIN ( like you were shown ) piece of soft dry gauze, secure with cover roll stretchtape . 6. Change dressing once day. Use an emery board ( use the fine side ) and file down the callus 2 or 3 times a week. Moisturize your legs at least once daily with a non-scented lotion (ex: Vanicream, Eucerin, Cerava). Inserts should be replaced on a routine basis (2-3 times per year). Additional Instructions: It is recommended to add in one extra serving of protein per day. Protein is essential for healing wounds (ex, eggs, meat, beans, Glucerna is a diabetic friendly drink with protein in it, there are also powders you can get to mix into food or drinks for adding protein into your diet). General ?? Verbal consent obtained to take wound photos at today's visit. ?? Watch for signs of infection: Increased redness, swelling, odor, drainage or pain. Elevated bloodsugars or elevated temperature may indicate infection. Seek medical attention immediately with any of these signs. ?? Do not leave wounds open to air. Check lower extremities/feet daily for new wounds. Never walk barefoot/stocking foot. Always wear protective footwear when walking. Do not use tape or band-aid on skin unless recommended by provider. Recipe ?? Normal Saline Recipe- 1 teaspoon of salt mixed in 1 quart of distilled water. ?? Do not add solution back to bottle. ?? May keep in refrigerator for up to 1 week. Showering/Bathing ?? Do not soak wounds. This includes swimming. hot tubs, etc. ?? Keep dressing on during shower. Change dressing immediately after showering. Activity ?? Stay off foot the Right foot as much as possible. Footwear MAKE SURE YOU LACE AND UNLACE YOUR SHOES EVERY TIME YOU PUT YOUR SHOES ON AND OFF. ?? Wear darco shoe on your right foot. The Darco shoe did NOT work out well for the Patient. Patientis using his own modified tennis shoe. When transitioning into new shoes, follow below after getting motion analysis Wean to Wear: Be sure to inspect your feet carefully each day after wearing your new shoes. Look for redness, bleeding, warmth, blisters and any sign of a new wound. Day 1 - Wear new shoes for 30 minutes only. Day 2 through 7 - Increase your time by 30 minutes each day until you reach 3 hours. Day 7 through 14 - You may wear shoes multimedia producer in your house only. Beyond day 14 - If no problems have developed, you may begin wearing them outside the house. If you have any wound care questions or concerns please contact the Vascular Center at [phone]. If you need to cancel, reschedule, or schedule a wound care appointment please call [phone]. Provider Signature Melissa Chatterjee R.N. documented in this encounter Progress Notes Melissa Chatterjee R.N. - 02/06/2020 9:00 AM CDT CHIEF COMPLAINT/REASON FOR VISIT: RN to assess and debride. Vinayak Vazquez was seen at the [facility] wound care center.. REFERRAL: Sherry Slater APRN, C.N.P., M.S.N. HISTORY OF PRESENT ILLNESS: Vinayak Vazquez is a pleasant 79 y.o.male presenting today for follow up of his right 1st toe wound. His medical history is significant for hypertension, hyperlipidemia, and diabetes mellitus type 2, andperipheral neuropathy. He is a nonsmoker.. Vinayak Vazquez was last seen by Sherry Slater APRN, Jose Alejandro.Ravindra.Letha., M.S.N on 01/14. Since that time, he has been using Iodosorb/hydrogel to the wound. Vinayak Vazquez has no new issues or concerns with their wound at this time. SOCIAL: Dressing changes are done by his . The patient is not having any problems with the dressings. PHYSICAL EXAM: General: Alert and oriented; no acute distress. Pleasant and conversant. Extremities: Warm, well perfused, no edema. Gait: Arrived ambulatory with no assistive devices. Wearing street shoes. He has cut out the toe area to help offload. Declines the darco shoe.. Skin/Wound: see LDA Lines/Drains/Airways Wound Vascular Wounds 10/06/19 Toe 1st, great Right 123 days ASSESSMENT/PLAN I reviewed my findings with Vinayak Vazquez. His right 1st toe wound has increased in size. Patient complains of 0/10 pain no lidocaine was applied. The wound base is granular. There was a large amount of callus present in the wound base that was sharply debrided with a forceps and scalpel. He will continue with the current dressing regimen. Vinayak Vazquez will return to see a provider, appointment scheduled for 02/18, with Emelyn Diamond APRN, C.N.P., D.N.P. This appointment was moved up to offer closer monitoring/debridement of the callus. He may need visits every 2 weeks. Vinayak Vazquez was instructed to contact the wound care center with any questions or concerns in the interim. Prior to proceeding with today's debridement a procedural pause was conducted to verify: correct patient identity, procedure to be performed and as applicable, correct side and site, correct patient position, and availability of implants, special equipment or special requirements, and allergies reviewed. 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 PCP - General 11/14/18 11/13/21 [address] [place] [address] documented as of this encounter
--- OUTSIDE RECORDS SUMMARY | 2022-02-03 15:05 | XMS_ITS | Encounter Summary ---
:1940 Author Organization [facility] Address [address] [place] [address] Care Team Providers Name Role Phone Lexus Fowler M.D., M.P.H. Primary Care Provider [phone] Encounter Details Date Type Department Care Team Description 02/14/2020 Hospital Encounter Department of Lexus Fowler Diab etes Mellitus Laboratory Medicine Alonso Lassiter, M.P .H. Type 2 With in [address] Diabetic Neuropathy [place], [place] ([facility]) [address] [facility] [address] [place], [place] [phone] [address] (Work) [phone] Social History Tobacco Use Types Packs/Day Years [...] 10/29/2020 relatives? How often do you attend restoration or islam services? Patien t refused 10/29/2020 Do you belong to any clubs or organizations such as Nabil borrero restoration groups, unions, fraternal or athletic groups, or [...] place to sleep or slept in a prison (including now)? Sex Assigned at Date Recorded [...] tablet by 0 09/16 B-50) capsule mouth. calcium carbonate-vitamin Take 1 tablet by 0 [...] week for four weeks, then use intermittently. MULTIVITAMIN (MULTIPLE Take 1 tablet by 0 009 VITAMINS ORAL) mouth daily. UNABLE TO FIND Diabetic 0 01/17/2020 inserts/Medicare UNABLE TO FIND Diabetic shoes/ 0 01/17/2020 Medicare MIS vitamin E 400 unit capsule Take 1 capsule by 0 mouth daily. amLODIPine (NORVASC) 5 mg Take 1 tablet (5 90 tablet 3 09/3 01/23/2021 tabletIndications: mg total) by Hypertension Essential mouth daily. Primary hydroCHLOROthiazide Take 1 tablet (50 90 tablet 3 0 01/23/2021 (HYDRODIURIL) 50 mg mg total) by tabletIndications: mouth daily. Hypertension Essential Primary losartan (COZAAR) 100 mg Take 1 tablet 90 tablet 3 02/14/20 20 01/23/2021 tabletIndications: (100 mg total) by Hypertension Essential mouth daily. Primary metFORMIN (GLUCOPHAGE) 500 Take 1 tablet 180 tablet 3 201908/16/2020 mg tabletIndications: (500 mg total) by Diabetes Mellitus Type 2 mouth 2 (two) With Diabetic Neuropathy times a day. ([facility]) EnTouch ControlsUCH ULTRA BLUE TEST daily. for 3 01/07/2018 08/16/2020 STRIP strips testing rosuvastatin (CRESTOR) 10 Take 1 tablet (10 100 tablet 3 01/23/2021 mg tabletIndications: mg total) by Hyperlipidemia mouth daily. documented as of this encounter Plan of Treatment Not on filedocumented as of this encounter Procedures Procedure Name Priority Date/Time Associated Diagnosis Comme nts ALBUMIN, RANDOM, U Routine 02/14/2020 9:44 AM Diabetes Mellitu s Results for this CDT Type 2 With Diabetic procedu re are in Neuropathy (HCC) the results section. documented in this encounter Results Albumin, Random, Urine (02/14/2020 9:44 AM CDT) P athologist Signature Albumin, 9.8 mg/L 02/14/2020 DTL Random, U 3:19 PM CDT Comment: ----ADDITIONAL INFORMATION---- This test has been modified from the man ufacturer's instructions. Its performance characteri stics were determined by [facility] in a manner co nsistent with CLIA requirements. This test has not bee n cleared or approved by the U.S. Food and Drug Admin istration. Creatinine 104 mg/dL 02/14/2020 3:17 PM CDT POWER Albumin/Creatinine Ratio 9 <17 mg/g 02/14/2020 3:19 PM CDT DTL Specimen Anatomical Collection Method Collection Time Receive d Time (Source) Location / / Volume Laterality Urine (Urine, 02/14/2020 9:44 AM 09/30/20 20 1:46 Clean Catch) CDT PM CDT Lexus Fowler M.D., M.P.H. 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 PCP - General 11/14/18 11/13/21 [address] [place] [address] documented as of this encounter
--- OUTSIDE RECORDS SUMMARY | 2022-02-03 15:05 | XMS_ITS | Encounter Summary ---
:1940 Author Organization [facility] Address [address] [place] [address] Care Team Providers Name Role Phone Lexus Fowler M.D., M.P.H. Primary Care Provider [phone] Encounter Details Date Type Department Care Team Description 01/15/2020 Ancillary Procedure Department of Vascular Social History Tobacco Use Types Packs/Day Years [...] 10/29/2020 relatives? How often do you attend gnosticism or gnosticism services? Patien t refused 10/29/2020 Do you belong to any clubs or organizations such as Nabil borrero gnosticism groups, unions, fraternal or athletic groups, or [...] place to sleep or slept in a care home (including now)? Sex Assigned at Date Recorded Not on file documented as of this encounter Plan of Treatment Not on filedocumented as of this encounter Procedures Procedure Name Priority Date/Time Associated Diagnosis Comme nts VASCULAR IMAGE EXAM Routine 01/15/2020 9:39 AM Re sults for this CDT procedure are i n the results section. documented in this encounter Results Foot, Right-Vascular Image Exam (01/15/2020 9:39 AM CDT) Specimen (Source) Anatomical Collection Method Collection Time Re ceived Time Location / / Volume Laterality 01/15/2020 9:37 AM CDT Narrative [facility] - 01/15/2020 9:39 AM CDT This order has been created [...] on filedocumented in this encounter Care Teams Night Shift Manager Relationship Specialty Start Date End Date Lexus Fowler M.D., M.P.H. PCP - General 11/14/18 11/13/21 [address] [place] [address] documented as of this encounter
--- OUTSIDE RECORDS SUMMARY | 2022-02-03 15:05 | XMS_ITS | Encounter Summary ---
:1940 Author Organization [facility] Address [address] [place] [address] Care Team Providers Name Role Phone Lexus Fowler M.D., M.P.H. Primary Care Provider [phone] Reason for Visit Reason Comments Immunizations Outpatient (Routine) - Closed Specialty Diagnoses / Procedures Referred By Contact Refer red To Contact Lexus Fowler M.D., M.P.H. [facility] [address] [place] [phone] Referral ID Status Reason Start Date Expiration Date Visits Requ ested Visits Authorized [id number] Closed 09/28/2019 09/27/2020 1 1 Encounter Details Date Type Department Care Team Description 12/26/2019 Nurse Only Department of [facility] Lu Fowler M.D., M.P.H. [address] [place] [phone] Immunizations Medicine, [facility] Wily Fernández, L.P.N. [address] [place] [phone] [place], [place] [address] [place] [address] Social History Tobacco Use Types Packs/Day Years [...] 10/29/2020 relatives? How often do you attend mormonism or mu-ism services? Patien t refused 10/29/2020 Do you belong to any clubs or organizations such as Nabil borrero mormonism groups, unions, fraternal or athletic groups, or [...] or slept in a [facility] (including now)? Sex Assigned at Date Recorded Not on file documented as of this encounter Plan of Treatment Not on filedocumented as of this encounter Visit Diagnoses Diagnosis Need Vaccine Immunization - Primary documented in this encounter Care Teams Cyber Software Engineer Relationship Specialty Start Date End Date Lexus Fowler M.D., M.P.H. PCP - General 11/14/18 11/13/21 [address] [place] [address] documented as of this encounter
--- OUTSIDE RECORDS SUMMARY | 2022-02-03 15:05 | XMS_ITS | Encounter Summary ---
:1940 Author Organization [facility] Address [address] [place] [address] Care Team Providers Name Role Phone Lexus Fowler M.D., M.P.H. Primary Care Provider Reason for Referral Outpatient (Routine) - Closed Specialty Diagnoses / Procedures Referred By Contact Refer red To Contact Vascular Medicine Sherry Slater APRN, [place] C.NYandy, M.S.N. [address] [place] [phone] Referral ID Status Reason Start Date Expiration Date Visits Requ ested Visits Authorized [id number] Closed 01/15/2020 01/14/2021 1 1 utpatient (Routine) - Closed Specialty Diagnoses / Procedures Referred By Contact Refer red To Contact Vascular Medicine Sherry Slater APRN, [place] C.N.PClarence, M.S.N. 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 [address] [place] [address] Referral ID Status Reason Start Date Expiration Date Visits Requ ested Visits Authorized [id number] Closed 12/04/2019 12/03/2020 1 1 Encounter Details Date Type Department Care Team Description 01/15/2020 Office Visit Department of Vascular Sherry Slater, Diabetes Mellitus 2 Ulcer Toe (HCC) (Primary Dx); Medicine in [place], Kei LOWRY, Diab etes Mellitus Type 2 With Diabetic Neuropathy (HCC); [place] M.S.N. Diabetes Mellitus Type 2 (HCC) [address] [place] [phone] Social History Tobacco Use Types Packs/Day Years [...] 10/29/2020 relatives? How often do you attend mandaeism or catholic services? Patien t refused 10/29/2020 Do you belong to any clubs or organizations such as Nabil borrero mandaeism groups, unions, fraternal or athletic groups, or [...] for the very basics like Not h ocsar at all 10/29/2020 food, housing, medical care, [...] Sign Reading Time Taken Comments Blood Pressure - - Pulse - - Temperature - - Respiratory Rate - - Oxygen Saturation - - Inhaled Oxygen Concentration - - Weight 93 kg (205 lb 0.4 oz) 01/15/2020 9:11 AM CDT Height - - Body Mass Index 28.54 09/22/2018 1:36 PM CDT documented in this encounter Patient Instructions Patient InstructionsMichael Gomez - 01/15/2020 9:00 AM CDT Wound Location: Right great [...] 14 - You may wear shoes multimedia assistant in your house only. Beyond day 14 - If no problems have developed, you may begin wearing them outside the house. If you have any wound care questions or concerns please contact the Vascular Center at [phone]. If you need to cancel, reschedule, or schedule a wound care appointment please call [phone]. Provider Signature Sherry Slater APRN, C.N.P., M.S.N. documented in this encounter Progress Notes Sherry Slater APRN, C.N.P., M.S.N. - 01/15/2020 9:00 AM CDT REFERRAL SOURCE Bette Juarez APRN, C.N.P., M.S.N. [address] [place] [address] SUBJECTIVE CHIEF COMPLAINT / REASON FOR VISIT Right great toe ulcer. Patient seen at the Wound Center. HISTORY OF PRESENT ILLNESS Mr. Vazquez is a 79 y.o. male that I am seeing today for revaluation of a right great toe ulcer. His most recent dressing modality has included the use of Iodosorb and Hydrogel for which he was continue with that his last appointment December 04, 2019. Was changed to a 7525 combination, changing once daily.. He has been utilizing regular shoes versus the Darco shoe. He reports that he recently ordered diabetic shoes/insert through [facility]. The shoes should be coming in shortly. He reports he consistently built up callous on the toe. Well living in [place], he had been seen podiatry for cares. Intermittently he had developed infections which were treated with oral antibiotics.He has been seen by our local podiatry for nail and foot care. It previous injury to this great toe caused by long moving accident where the tip of the toe was severed. He reports that he recently started wearing shoes at all times following his last visit in podiatry.Prior to that he was not wearing shoes inside his home. Presentation today it was also noted that charly slips his shoes on and off without lacing or unlacing. His reports that she feels the wound has improved with him wearing his shoes consistently over the last week or so. Medical history significant for hypertension, hyperlipidemia, and diabetes mellitus type 2, and peripheral neuropathy. He is a nonsmoker. The following portions of the patient's history were reviewed and updated as appropriate: allergies,current medications, family history, medical history, social history, surgical history, psychiatric history, substance abuse history, problem list, labs, diagnostics tests. I reviewed the pertinent clinical notes in the electronic health record. REVIEW OF SYSTEMS Pertinent positives and pertinent negatives are documented in the history of present illness. OBJECTIVE VITALS Wt 93 kg BMI 28.54 kg/m?? PHYSICAL EXAMINATION Body mass index is 28.54 kg/m??. Physical Exam General: Pleasant 79-year-old gentleman no acute distress. Vessels: Pulses appreciated on the right. Extremities: Lower extremities are warm and perfused. Hair growth noted on lower legs. Skin: Patient has an area of ulceration on the plantar right great toe. Callus buildup and nonviabletissue present on the ulcer base. With his consent with use of 15 blade scalpel and curette meticulous debridement was performed. He tolerated this well without incident. After removal nonviable tissuethere is a smaller ulcer base, primarily granular but small amount of fibrin still present. No tracking or undermining. Periulcer was pared down deformity even plane. No sign of infection. Ulcer measures 0.3 x 0.2 x 0.2 cm. Mental: Alert, oriented Gait: Ambulatory. Please see flow sheets and photographs additional information. INFORMED CONSENT: Discussed the risks, benefits, alternatives, and the necessity of other members ofthe healthcare team participating in the procedure. All questions answered and consent given. DIAGNOSTIC REVIEW Pertinent labs and diagnostic studies reviewed. ASSESSMENT / PLAN #1 Diabetes Mellitus 2 Ulcer Toe (HCC) #2 Diabetes Mellitus Type 2 With Diabetic Neuropathy (HCC) #3 Diabetes Mellitus Type 2 (HCC) I reviewed my assessment and recommendations with the patient. Was encouraged to continue with the use of Iodosorb and Hydrogel and a 7525 combination. We reviewed the number of layers of soft gauze and will reduce the numbers to again reduce any additional pressures to the area. He was encouraged to wear his footwear at all times. It was noted at today's visit that he does not lace or unlace his shoes. The importance of doing this was reviewed to reduce any friction or shearing forces on his foot her causing his foot to slightly deeper into the toe box again increasing likelihood of callus development. He was not aware of this and appreciated the information. His does dressing changes feels there has been improvement wound with him wearing shoes at all times. This was reinforced and was congratulated on his efforts. He was offered a return appointment in three in six weeks. He will be leaving for [place] mid to late February. He notes that he will be seen with a local line prep cook there who also does wound cares. He will have continuity for followup which will be important. He should also have his new shoes and inserts before he leaves. No additional questions noted. PATIENT EDUCATION Ready to learn, no apparent learning barriers were identified; learning preferences include listening. Explained diagnosis and treatment plan; patient expressed understanding of the content. Select sharp debridement under 20 cm performed by TECHNOLOGY COACH. Billing does not reflect debridement time. Sherry Slater APRN, C.N.P., M.S.N. documented in this encounter Plan of Treatment Scheduled Referrals Name Type Priority Associated Diagnoses Order [facility] Vascular Medicine Outpatient Referral Routine Exp ected: office visit 02/26/2020 (clinic) (Approximate), Expires: 01/14/2023 Vascular Medicine Outpatient Referral Routine Exp ected: nurse visit 02/02/2020 (clinic) (Approximate), Expires: 01/14/2023 documented as of this encounter Visit Diagnoses Diagnosis Diabetes Mellitus 2 Ulcer Toe (HCC) - Pr imary Diabetes Mellitus Type 2 With Diabetic N europathy (HCC) Diabetes Mellitus Type 2 (HCC) documented in this encounter Care Teams Loan Expeditor Relationship Specialty Start Date End Date Lexus Fowler M.D., M.P.H. PCP - General 11/14/18 11/13/21 [address] [place] [address] documented as of this encounter
--- OUTSIDE RECORDS SUMMARY | 2022-02-03 15:05 | XMS_ITS | Encounter Summary ---
:1940 Author Organization [facility] Address [address] [place] [address] Care Team Providers Name Role Phone Lexus Fowler M.D., M.P.H. Primary Care Provider [phone] Reason for Visit Reason Comments Med Refill Encounter Details Date Type Department Care Team Description 08/19/2020 Refill Department of Family Medicine, Marshal Mccoy, RClarenceNClarence Med Refill [facility], [address] [place] [address] [address] [place] [facility] [place] [address] Social History Tobacco Use Types Packs/Day Years [...] 10/29/2020 relatives? How often do you attend uatsdin or orthodox services? Patien t refused 10/29/2020 Do you belong to any clubs or organizations such as Nabil borrero uatsdin groups, unions, fraternal or athletic groups, or [...] or slept in a penitentiary (including now)? Sex Assigned at Date Recorded Not on file documented as of this encounter Plan of Treatment Not on filedocumented as of this encounter Visit Diagnoses Not on filedocumented in this encounter Care Teams Distributor Advertising Material Relationship Specialty Start Date End Date Lexus Fowler M.D., M.P.H. PCP - General 11/14/18 11/13/21 [address] [place] [address] documented as of this encounter
--- OUTSIDE RECORDS SUMMARY | 2022-02-03 15:05 | XMS_ITS | Encounter Summary ---
:1940 Author Organization [facility] Address [address] [place] [address] Care Team Providers Name Role Phone Lexus Fowler M.D., M.P.H. Primary Care Provider [phone] Reason for Visit Reason Comments ALETHEA Nurse Line Encounter Details Date Type Department Care Team Description 01/16/2020 Clinical Communication Department of Lexus Fowler Nurse Line Family MedicineMaikol M.D., M.P.H. [facility] [address] [facility] [phone] [address] [facility] [phone] [place], [place] (Work) [phone] Social History Tobacco Use Types Packs/Day Years [...] How often do you attend judaism or tenriism services? Patien t refused 10/29/2020 Do you [...] place to sleep or slept in a retirement (including now)? Sex Assigned at Date Recorded Not on file documented as of this encounter Miscellaneous Notes Telephone Encounter - Claudia Munroe - 01/16/2020 9:02 AM CDT ([facility] and [facility] locations only: If the patient is not having symptoms and is requesting COVID-19 Nasal Swab testing only, use the process listed in the COVID-19 Patient Requesting COVID PCR Test OTG COVID-19 [place] Patient Requesting COVID PCR Test). In the past 30 days have you had a swab for COVID that tested positive? no Route reply to: Please respond to [facility] BLOOD Scheduling pool if necessary Scheduling Contact Number: [phone] documented in this encounter Plan of Treatment Not on filedocumented as of this encounter Visit Diagnoses Not on filedocumented in this encounter Care Teams Auto Specialty Services Manager Relationship Specialty Start Date End Date Lexus Fowler M.D., M.P.H. PCP - General 11/14/18 11/13/21 [address] [place] [address] documented as of this encounter
--- OUTSIDE RECORDS SUMMARY | 2022-02-03 15:05 | XMS_ITS | Encounter Summary ---
:1940 Author Organization [facility] Address [address] [place] [address] Care Team Providers Name Role Phone Lexus Fowler M.D., M.P.H. Primary Care Provider [phone] Reason for Visit Outpatient (Routine) - Closed Specialty Diagnoses / Procedures Referred By Contact Refer red To Contact Vascular Medicine Sherry Slater APRN, [place] [facility] C.N.PClarence, M.S.N. [address] [place] [address] Referral ID Status Reason Start Date Expiration Date Visits Requ ested Visits Authorized [id number] Closed 01/15/2020 01/14/2021 1 1 Encounter Details Date Type Department Care Team Description 02/19/2020 Office Visit Department of Vascular Emelyn Diamond, Diabetes Mellitus 2 Ulcer Toe (HCC) (Primary Dx); Medicine in [place], ALEN C.N.PClarence, Diab etes Mellitus Type 2 With Diabetic Neuropathy (HCC); [place] D.N.PClarence Callus Cecil Foot [address] [place] [phone] Social History Tobacco Use Types Packs/Day Years [...] 10/29/2020 relatives? How often do you attend amish or judaism services? Patien t refused 10/29/2020 Do you belong to any clubs or organizations such as Nabil borrero amish groups, unions, fraternal or athletic groups, or [...] place to sleep or slept in a detention (including now)? Sex Assigned at Date Recorded Not on file documented as of this encounter Patient Instructions Patient InstructionsTaiSamaria huerta M - 02/19/2020 2:30 PM CDT Wound Location: Right Great Toe 1. Wash hands. 2. Remove old dressings. 3. Gently cleanse ulcer base with normal saline and rough gauze in a circular motion. 4. Apply a piece of Promogran to the wound base and slightly moisten with saline. 5. Cover with a THIN piece of soft, dry gauze, and secure with cover roll stretch tape . 6. Change the dressing every other day. ?? Use an emery board (use the fine side) and file down the callus 2 or 3 times a week. ?? Moisturize your legs at least once daily with a non-scented lotion (ex: Vanicream, Eucerin, Cerava). ?? Inserts should be replaced on a routine [...] immediately after showering. Activity ?? Stay off the right foot as much as possible. Footwear ?? MAKE SURE YOU LACE AND UNLACE YOUR SHOES EVERY TIME YOU PUT YOUR SHOES ON AND OFF. ?? Wear darco shoe on your right foot. The Darco shoe did NOT work out well for the Patient. Patientis using his own modified tennis shoe. When transitioning into new shoes, follow the instructions below after getting motion analysis: Wean to Wear: Be sure to inspect [...] 14 - You may wear shoes multimedia teacher in your house only. Beyond day 14 - If no problems have developed, you may begin wearing them outside the house. If you have any wound care questions or concerns please contact the Vascular Center at [phone]. If you need to cancel, reschedule, or schedule a wound care appointment please call [phone]. Provider Signature Emelyn Diamond APRN, C.N.P., Maximiliano.N.P. documented in this encounter Progress Notes Emelyn Diamond APRN, C.N.P., SebastianN.P. - 02/19/2020 2:30 PM CDT SUBJECTIVE CHIEF COMPLAINT / REASON FOR VISIT Re-evaluation of right 1st toe ulcer. [facility] . HISTORY OF PRESENT ILLNESS Mr. Vinayak Vazquez is a pleasant 79 y.o. male here today for re-evaluation of right 1st toe Medical history significant for hypertension, hyperlipidemia, and diabetes mellitus type 2, and peripheral neuropathy. He is a nonsmoker. ?? In May this year, the patient had debridement of callus formation at an outside clinic and reports a 'large chunk came off'. It subsequently bled and was draining for the next month. On July 10, 2019 he was seen at a clinic in [place] for an infected right great toe callus and was treated withKeflex 500 mg b.i.d. x7 days. The area continued to drain and bleed intermittently. From May-early September, he reports not applying any dressing, just cleaning and leaving open to air. ?? Of note, he has had a previous injury to his right great toe caused by a lawn mowing accident. He reports it was completely severed then reattached in 1970 and now 'the bone is gone from where it's supposed to be'. He was most recently evaluated [facility] on [facility], 2020. During that visit it was recommended he continue utilizing Iodosorb/Hydrogel in a 75/25 combination. This should be changed daily and cleanse thoroughly with normal saline prior to re-application. He was encouraged towear footwear at all times and offload whenever possible. Of note, he will be leaving for [place] onMarch 11, 2020. The return in early July of 2020. Currently, he denies fever, chills, or night sweats; or any increase in redness, swelling, pain, or drainage. DIAGNOSTIC EVALUATIONS REVIEWED: A right foot MRI was performed on October 10, 2019. This showed no evidence of osteomyelitis. The following portions of the patient's history were reviewed and updated as appropriate: allergies,current medications, family history, past medical history, social history, surgical history, problemlist, labs, diagnostics tests. I reviewed the pertinent clinical notes in the electronic health record. OBJECTIVE VITALS There were no vitals taken for this visit. PHYSICAL EXAMINATION General: Patient is a healthy-appearing male in no cardiopulmonary distress. Vessels: Right-Dorsalis Pedis: 2+ Posterior Tibial: 2+ Extremities: No edema noted in lower extremities bilaterally. No upper extremity edema noted. Brisk capillary refill. Gait: Steady and stable. Mental: Pleasant, appropriate, and cooperative. Alert and oriented x3 with normal affect. Skin: Warm, dry and pink with good turgor. No rashes or ecchymosis seen. Wound Review After obtaining informed consent, a topical lidocaine solution of 2% was applied. After which sharp debridement was performed using a forceps, iris scissors, and 15 blade scalpel. Location/Description: Right plantar medial 1st toe ulcer. Wound bed is pale granulation. Perimeter is callused and macerated. Measurements: 0.6 X 0.7 X 0.2 cm. ASSESSMENT / PLAN #1 Diabetes Mellitus 2 Ulcer Toe (HCC) #2 Diabetes Mellitus Type 2 With Diabetic Neuropathy (HCC) #3 Callus Cecil Foot I discussed my assessment findings and plan of care with Mr. Vinayak Vazquez and his who was also present at today's visit. This ulceration is entirely granular. At this time, I recommend transitioning to Promogran moistenedwith saline with a soft gauze secondary dressing secured with Cover Roll stretch. This should be changed every other day. Hopefully this will help to fill in the depth. He was encouraged to offload whenever possible. He should always wear shoes. They will be leaving for [place] later this month. He will be gone until late July of 2020. He was encouraged to find a wound care provider while in [place]. He would benefit from monthly debridement.Upon return, he can contact us to be rescheduled on the wound care calendar if needed. Strategies to promote wound healing include: wound care and off-loading It was a pleasure to see Mr. Vazquez. Patient verbalized understanding of all the recommendations and was in agreement with the plan. If he has any questions or concerns he should contact the [facility]. Please see the After Visit Summary and/or Patient Instructions outlined in the encounter for detailsregarding wound care instructions. Emelyn Diamond APRN, C.N.P., D.N.P. INFORMED CONSENT: Discussed the risks, benefits, alternatives, and the necessity of other members ofthe healthcare team participating in the procedure. All questions answered and consent given. Pleasesee flow sheets and photographs for additional information. PATIENT EDUCATION Ready to learn, no apparent learning barriers were identified; learning preferences include listening. Explained diagnosis and treatment plan; patient expressed understanding of the content. BILLING Total time spent with patient: 30 minutes. Time spent in counselin minutes. Billing does not reflect debridement time. documented in this encounter Plan of Treatment Not on filedocumented as of this encounter Visit Diagnoses Diagnosis Diabetes Mellitus 2 Ulcer Toe (HCC) - Pr imary Diabetes Mellitus Type 2 With Diabetic N europathy (HCC) Callus Cecil Foot documented in this encounter Care Teams Lap Welder Relationship Specialty Start Date End Date Lexus Fowler M.D., M.P.H. PCP - General 11/14/18 11/13/21 [address] [place] [address] documented as of this encounter
--- OUTSIDE RECORDS SUMMARY | 2022-02-03 15:05 | XMS_ITS | Encounter Summary ---
:1940 Author Organization [facility] Address [address] [place] [address] Care Team Providers Name Role Phone Lexus Fowler M.D., M.P.H. Primary Care Provider [phone] Encounter Details Date Type Department Care Team Description 02/12/2020 Hospital Encounter Department of Lexus Fowler Diab etes Mellitus Laboratory Medicine Alonso Lassiter, M.P .H. Type [address] Diabetic Neuropathy [place], [place] ([facility]) [address] [facility] [address] [place], [place] [phone] [address] (Work) [phone] Social History Tobacco Use Types Packs/Day Years [...] 10/29/2020 relatives? How often do you attend synagogue or sikhism services? Patien t refused 10/29/2020 Do you belong to any clubs or organizations such as Nabil borrero synagogue groups, unions, fraternal or athletic groups, or [...] place to sleep or slept in a fpc (including now)? Sex Assigned at Date Recorded [...] 0 mouth daily. amLODIPine (NORVASC) 5 mg TAKE 1 TABLET BY 90 tablet 3 12/1702/14/2020 tabletIndications: MOUTH DAILY Hypertension Essential Primary B-COMPLEX WITH VITAMIN C Take 1 tablet by 0 09/1602/14/2020 (VITAMIN B COMPLEX WITH C mouth daily. ORAL) docosahexaenoic acid/epa Take 1 capsule by 0 06/200902/14/2020 (FISH OIL ORAL) mouth. hydroCHLOROthiazide Take 1 tablet (50 90 tablet 3 9 02/14/2020 (HYDRODIURIL) 50 mg mg total) by tabletIndications: mouth daily. Hypertension Essential Primary losartan (COZAAR) 100 mg Take 1 tablet 90 tablet 3 03/10/20 19 02/14/2020 tabletIndications: (100 mg total) by Hypertension Essential mouth daily. Primary metFORMIN (GLUCOPHAGE) 500 Take 1 tablet 180 tablet 3 201802/14/2020 mg tabletIndications: (500 mg total) by Diabetes Mellitus Type 2 mouth 2 (two) With Diabetic Neuropathy times a day. ([facility]) ONETOUCH ULTRA BLUE TEST daily. for 3 01/07/2018 08/16/2020 STRIP strips testing rosuvastatin (CRESTOR) 10 Take 1 tablet (10 100 tablet 3 11/201902/14/2020 mg tabletIndications: mg total) by Hyperlipidemia mouth daily. documented as of this encounter Plan of Treatment Not on filedocumented as of this encounter Procedures Procedure Name Priority Date/Time Associated Diagnosis Comme nts HEMOGLOBIN A1C, B Routine 02/12/2020 8:08 AM Diabetes Mellitus Results for this CDT Type 2 With Diabetic procedu re are in Neuropathy (HCC) the results section. documented in this encounter Results (ABNORMAL) Hemoglobin A1c (02/12/2020 8:08 AM CDT) P athologist Signature Hemoglobin A1c, 6.7 (H) 4.0 - 5.6 02/12/2020 DTL B % 1:01 PM CDT Comment: Hemoglobin A1c values greater than or eq ual to 6.5 percent are diagnostic for diabetes mellitus. ?? Diagnosis should be confirmed by repeat testing. ??In diabet ic patients, HbA1c goals should be discussed with healthcar e provider. Specimen Anatomical Collection Method Collection Time Receive d Time (Source) Location / / Volume Laterality Blood (Blood, 02/12/2020 8:08 AM 02/12/20 20 Venous) CDT 12:39 PM CDT Lexus Fowler M.D., M.P.H. LAB BLOOD ADD-ON Performing Organization Address City/State/ZIP Code Phon e Number [facility] - 200 [place], [place] [address] [facility] [place] [address] Laboratories-[facility] 200 [facility] documented in this encounter Visit Diagnoses Diagnosis Diabetes Mellitus Type 2 With Diabetic N europathy (HCC) documented in this encounter Care Teams Set Up Operator Tool Relationship Specialty Start Date End Date Lexus Fowler M.D., M.P.H. PCP - General 11/14/18 11/13/[address] [place] [address] documented as of this encounter
--- OUTSIDE RECORDS SUMMARY | 2022-02-03 15:05 | XMS_ITS | Encounter Summary ---
:1940 Author Organization [facility] Address [address] [place] [address] Care Team Providers Name Role Phone Lexus Fowler M.D., M.P.H. Primary Care Provider [phone] Reason for Referral Outpatient (Routine) - Closed Specialty Diagnoses / Procedures Referred By Contact Refer red To Contact Diagnoses Lesion Skin Face Keratosis Actinic Keratosis Seborrheic Lexus Fowler M.D., [facility] Procedures Lesion Destruction M.P.H. [address] [place] [address] Referral ID Status Reason Start Date Expiration Date Visits Requ ested Visits Authorized [id number] Closed 10/29/2020 10/29/2021 1 1 Reason for Visit Reason Comments Other skin spot Appointment Request (Routine) - Closed Specialty Diagnoses / Procedures Referred By Contact Refer red To Contact Family Medicine Referral ID Status Reason Start Date Expiration Date Visits Requ ested Visits Authorized [id number] Closed 09/11/2020 09/11/2021 1 1 Encounter Details Date Type Department Care Team Description 10/29/2020 Office Visit Department of Lexus Renee, Lesion Skin Face (Primary Dx); Medicine, Estiven Osborn M.D., M.P. H. Maintenance Health Adult; [place] [address] [facility] Keratosis Actinic; [place], [place] Keratosis Seborrheic [address] [facility] [address] [place] [address] [phone] Social History Tobacco Use Types Packs/Day Years [...] 10/29/2020 relatives? How often do you attend islam or spiritism services? Patien t refused 10/29/2020 Do you belong to any clubs or organizations such as Nabil borrero islam groups, unions, fraternal or athletic groups, or [...] Sign Reading Time Taken Comments Blood Pressure 122/68 10/29/2020 9:07 AM CDT Pulse 51 10/29/2020 9:07 AM CDT Temperature - - Respiratory Rate - - Oxygen Saturation - - Inhaled Oxygen Concentration - - Weight 93.6 kg (206 lb 5.6 oz) 10/29/2020 9:07 AM CDT Height - - Body Mass Index 28.73 09/22/2018 1:36 PM CDT documented in this encounter Patient Instructions Patient InstructionsLexus Fowler M.D., M.P.H. - 10/29/2020 9:30 AM CDT You can put some vaseline on the areas we froze documented in this encounter Progress Notes Lexus Fowler M.D., M.P.H. - 10/29/2020 9:30 AM CDT SUBJECTIVE CHIEF COMPLAINT / REASON FOR VISIT Vinayak Vazquez is a 80 y.o. male who presents for evaluation of Other (skin spot). HISTORY OF PRESENT ILLNESS Mr. 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 # Skin lesion on face He reports he noticed this one month ago. It is a waxy brown lesion present on his right temporal area. He has had similar lesions frozen off in the past. He also has a history of actinic keratoses. Armaans have significant history of sun exposure, and rarely wears sunscreen. He spends 5 months of theyear down in [place]. # DM II Is well controlled, on metformin 2000 mg daily. D5 criteria is 5/ # Health maintenance Due for hepatitis B vaccine, dilated eye exam. He is interested in the hepatitis B vaccine today, and has an appointment for his eye exam on 11/26. The following portions of the patient's history were reviewed and updated as appropriate: allergies,current medications, family history, medical history, social history, surgical history and problem list. OBJECTIVE PHYSICAL EXAM Vitals: 10/29/20 0907 BP: 122/68 Pulse: (!) 51 General: Well appearing man in no apparent distress. Pulmonary: Breathing comfortably on room air Skin: Warm and well perfused. Has scattered macular pigmented lesions on his face. Has some rough, keratotic appearing areas on his left ear, right side of his nose, and forehead. Has a 5-6 mm stuck on, waxy appearing lesion on the right temporal area. Picture was uploaded to the chart. ASSESSMENT / PLAN #1 Lesion Skin Face Assessment & Plan: He has numerous face lesions, the brown spot on the temporal region appears to be a seborrheic keratosis. There are no concerning features on exam. He would still like this to be treated today. He alsohas scattered actinic keratoses, these were treated with cryotherapy. Please see procedure note for full details. We discussed that if cryotherapy does not take care of the seborrheic keratosis, we could continue to observe, or could proceed with shave biopsy for full removal. #2 Maintenance Health Adult Assessment & Plan: He is due for an eye exam, this is scheduled for 11/26/2020. He is due for his 3rd hepatitis B vaccine, he will get this at the end of his visit. #3 Keratosis Actinic #4 Keratosis Seborrheic Other orders - HepB: hepatitis B adult (Heplisav-B) vaccine (age 18 years and older) documented in this encounter Procedure Notes Lexus Fowler M.D., M.P.H. - 10/29/2020 9:30 AM CDTAssociated Order(s): Lesion Destruction Post-Procedure Diagnose(s): Lesion Skin Face; Keratosis Actinic; Keratosis Seborrheic Lesion Destruction Date/Time: 10/29/2020 10:01 AM Performed by: Lexus Fowler M.D., M.P.H. Authorized by: Lexus Fowler M.D., M.P.H. Care team members present 1. Lexus Fowler M.D., M.P.H. 2. Gretel Hobson PROCEDURE DETAILS Number of body areas treated: 1 Body Area Number 1 Number of lesions treated: 3 Location on body: head/neck Head/Neck: face Face biopsy: AK on left ear, nose, and forehead. SK on right temporal area Destruction method: cryotherapy CONSENT Consent obtained: verbal Consent given by: patient The benefits, risks and alternatives to the procedure and the potential need for sedation or anesthesia as well as the names, roles, and responsibilities of healthcare team members performing significant interventional tasks were discussed with the patient and/or decision maker. UNIVERSAL PROTOCOL All relevant documentation and testing were reviewed and available. All required blood products, implants, devices and or special equipment were made available as applicable. Pre-procedure verificationwas conducted and the correct site was marked if required. A fire risk assessment was done as applicable. The procedural time-out was conducted prior to performing the procedure and confirmed in a procedural pause. PRE-PROCEDURE DETAILS Procedure purpose: therapeutic Appropriate hand hygiene, gown, cap, mask, protective eyewear, sterile gloves, skin preparation, sterile drape, and strict aseptic technique were utilized as applicable for the procedure.: yes Pre-procedural diagnosis: actinic keratosis (Also treated seborrheic keratosis) SEDATION / ANESTHESIA Anesthesia method: none POST-PROCEDURE DETAILS Total lesions destroyed: 3 Total lesions destroyed by chemical injection: 0 Procedure completed successfully: yes Complications: no apparent complications Tolerance: well tolerated Follow up: no follow up planned unless complications Photo taken: yes COMMENTS Can apply vaseline to the area after treatment documented in this encounter Miscellaneous Notes Assessment & Plan Note - Lexus Fowler M.D., M.P.H. - 10/29/2020 9:58 AM CDTAssociated Problem(s): Maintenance Health Adult He is due for an eye exam, this is scheduled for 11/26/2020. He is due for his 3rd hepatitis B vaccine, he will get this at the end of his visit. Assessment & Plan Note - Lexus Fowler M.D., M.P.H. - 10/29/2020 9:58 AM CDTAssociated Problem(s): Lesion Skin Face He has numerous face lesions, the brown spot on the temporal region appears to be a seborrheic keratosis. There are no concerning features on exam. He would still like this to be treated today. He alsohas scattered actinic keratoses, these were treated with cryotherapy. Please see procedure note for full details. We discussed that if cryotherapy does not take care of the seborrheic keratosis, we could continue to observe, or could proceed with shave biopsy for full removal. documented in this encounter Plan of Treatment Not on filedocumented as of this encounter Procedures Procedure Name Priority Date/Time Associated Comments Diagnosis HI DEST PREMALIGNANT Routine 10/29/2020 10:01 Lesion Ski n Face Results for this LESN 2-14 AM CDT Keratosis Actini c procedure are in Keratosis the results Seborrheic section. HI DEST PREMALIGNANT Routine 10/29/2020 10:01 Lesion Ski n Face Results for this LESN 2-14 AM CDT Keratosis Actini c procedure are in Keratosis the results Seborrheic section. HI DEST PREMALIGNANT Routine 10/29/2020 10:01 Lesion Ski n Face Results for this LESN 1ST AM CDT Keratosis Actini c procedure are in Keratosis the results Seborrheic section. documented in this encounter Results HI DEST PREMALIGNANT LESN 1ST, HI DEST PREMALIGNANT LESN 2-14, HI DEST PREMALIGNANT LESN 2-14 (10/29/2020 10:01 AM CDT) Narrative [facility] - 10/29/2020 10:01 AM CDT Lexus Fowler M.D., M.P.H. ? 10/29/2020 10:03 AM Lesion Destruction Date/Time: 10/29/2020 10:01 AM Performed by: Lexus Fowler M.D., M.P.H. Authorized by: Lexus Fowler M.D., M.P.H. Care team members present 1. Lexus Fowler M.D., M.P.H. 2. Gretel Hobson PROCEDURE DETAILS Number of body areas treated: 1 Body Area Number 1 Number of lesions treated: 3 Location on body: head/neck Head/Neck: face Face biopsy: AK on left ear, nose, and f orehead. ??SK on right temporal area Destruction method: cryotherapy CONSENT Consent obtained: verbal Consent given by: patient The benefits, risks and alternatives to the procedure and the potential need for sedation or anesthesia as well as the names, roles, and responsibilities of healthcare team memb ers performing significant interventional tasks were discussed with the patient and/or decision maker. UNIVERSAL PROTOCOL All relevant documentation and testing w ere reviewed and available. All required blood products, implants, devic es and or special equipment were made available as applicable. Pre-proced ure verification was conducted and the correct site was marked if required. A fire risk assessment was done as applicable. The procedural time-out w as conducted prior to performing the procedure and confirmed in a procedu ral pause. PRE-PROCEDURE DETAILS ?? Procedure purpose: therapeutic Appropriate hand hygiene, gown, cap, mas k, protective eyewear, sterile gloves, skin preparation, sterile drape, and strict aseptic technique were utilized as applicable for the procedure .: yes ?? Pre-procedural diagnosis: actinic kerato sis (Also treated seborrheic keratosis) SEDATION / ANESTHESIA Anesthesia method: none POST-PROCEDURE DETAILS ?? Total lesions destroyed: 3 Total lesions destroyed by chemical inje ction: 0 Procedure completed successfully: yes ?? Complications: no apparent complications ?? Tolerance: well tolerated Follow up: no follow up planned unless c omplications Photo taken: yes COMMENTS Can apply vaseline to the area after daniel atment Lexus Fowler M.D., M.P.H. PROCEDURE/MINOR SURGICA L ORDERABLES Performing Organization Address City/State/ZIP Code Phon e Number [facility] NA documented in this encounter Visit Diagnoses Diagnosis Lesion Skin Face - Primary Maintenance Health Adult Keratosis Actinic Keratosis Seborrheic documented in this encounter Care Teams Sap Solution Manager Consultant Relationship Specialty Start Date End Date Lexus Fowler M.D., M.P.H. PCP - General 11/14/18 11/13/[address] [place] [address] documented as of this encounter
--- OUTSIDE RECORDS SUMMARY | 2022-02-03 15:05 | XMS_ITS | Encounter Summary ---
:1940 Author Organization [facility] Address [address] [place] [address] Care Team Providers Name Role Phone Lexus Fowler M.D., M.P.H. Primary Care Provider [phone] Encounter Details Date Type Department Care Team Description 06/11/2020 Orders Only RST PCP [facility] Javon Martins Jr., M.D. [address] [place] [address] Dr [place] [phone] (Wo rk) Social History Tobacco Use Types [...] 10/29/2020 relatives? How often do you attend yarsani or methodist services? Patien t refused 10/29/2020 Do you belong to any clubs or organizations such as Nabil borrero yarsani groups, unions, fraternal or athletic groups, or [...] place to sleep or slept in a snf (including now)? Sex Assigned at Date Recorded Not on file documented as of this encounter Plan of Treatment Not on filedocumented as of this encounter Visit Diagnoses Not on filedocumented in this encounter Care Teams Auto Dealer Relationship Specialty Start Date End Date Lexus Fowler M.D., M.P.H. PCP - General 11/14/18 11/13/21 [address] [place] [address] documented as of this encounter
--- OUTSIDE RECORDS SUMMARY | 2022-02-03 15:05 | XMS_ITS | Encounter Summary ---
:1940 Author Organization [facility] Address [address] [place] [address] Care Team Providers Name Role Phone Lexus Fowler M.D., M.P.H. Primary Care Provider [phone] Encounter Details Date Type Department Care Team Description 02/14/2020 Hospital Encounter Department of Lexus Fowler Diab etes Mellitus Type 2 With Diabetic Neuropathy (HCC); Laboratory Medicine Alonso Lassiter, M.P .H. Maintenance Health Adult in [address] [facility] [address] [place], [place] [phone] [address] (Work) [phone] Social History Tobacco Use Types Packs/Day Years [...] 10/29/2020 relatives? How often do you attend moravian or mormon services? Patien t refused 10/29/2020 Do you belong to any clubs or organizations such as Nabil borrero moravian groups, unions, fraternal or athletic groups, or [...] (two) With Diabetic Neuropathy times a day. ([facility]) BrightLockerUCH ULTRA BLUE TEST daily. for 3 01/07/2018 08/16/2020 STRIP strips testing rosuvastatin (CRESTOR) 10 Take 1 tablet (10 100 tablet 3 01/23/2021 mg tabletIndications: mg total) by Hyperlipidemia mouth daily. documented as of this encounter Plan of Treatment Not on filedocumented as of this encounter Procedures Procedure Name Priority Date/Time Associated Diagnosis Comme nts LIPID PANEL, S Routine 02/14/2020 9:34 AM Maintenance Health R esults for this CDT Adult procedure are i n the results section. SODIUM, S/P Routine 02/14/2020 9:34 AM Diabetes Mellitus Resu lts for this CDT Type 2 With Diabetic procedu re are in Neuropathy ([facility]) the results section. POTASSIUM, S/P Routine 02/14/2020 9:34 AM Diabetes Mellitus Re sults for this CDT Type 2 With Diabetic procedu re are in Neuropathy ([facility]) the results section. CREATININE WITH Routine 02/14/2020 9:34 AM Diabetes Mellitus R esults for this EGFR, S/P CDT Type 2 With Diabetic procedu re are in Neuropathy ([facility]) the results section. documented in this encounter Results Lipid Panel (02/14/2020 9:34 AM CDT) athologist Signature Cholesterol, 102 mg/dL 02/14/2020 DTL Total 12:40 PM CDT Comment: ----REFERENCE VALUE---- Desirable: < 200 Borderline high: 200 - 239 High: > or = 240 Triglycerides 69 mg/dL 02/14/2020 12:40 PM CDT DT L Comment: ----REFERENCE VALUE---- Normal: <150 Borderline high: 150-199 High: 200-499 Very high: > or =500 Cholesterol, HDL, S 54 >=40 mg/dL 02/14/2020 12:40 PM CDT DTL Calculated LDL 34 mg/dL 02/14/2020 12:40 PM CDT D TL Comment: ----REFERENCE VALUE---- Desirable: <100 Above Desirable: 100-129 Borderline high: 130-159 High: 160-189 Very high: > or =190 Cholesterol, Non-HDL, Calculated 48 mg/dL 020 12:40 PM CDT DTL Comment: ----REFERENCE VALUE---- Desirable: <130 Above Desirable: 130-159 Borderline high: 160-189 High: 190-219 Very high: > or =220 Specimen Anatomical Collection Method Collection Time Receive d Time (Source) Location / / Volume Laterality Blood (Blood, 02/14/2020 9:34 AM 02/14/20 20 Venous) CDT 12:20 PM CDT Lexus Fowler M.D., M.P.H. LAB BLOOD ADD-ON Performing Organization Address City/State/ZIP Code Phon e Number [facility] - [address] [place], [place] [address] [facility] [place] [address] Laboratories-[facility] [address] Sodium (02/14/2020 9:34 AM CDT) athologist Signature Sodium, P 136 135 - 145 02/14/2020 [facility] mmol/L 10:38 AM CDT Specimen Anatomical Collection Method Collection Time Receive d Time (Source) Location / / Volume Laterality Blood (Blood, 02/14/2020 9:34 AM 02/14/20 20 9:34 Venous) CDT AM CDT Lexus Fowler M.D., M.P.H. LAB BLOOD ADD-ON Performing Organization Address City/State/ZIP Code Phon e Number [facility] [address] [place] [address] [place] [address] [facility] Potassium (02/14/2020 9:34 AM CDT) athologist Signature Potassium, P 4.3 3.6 - 5.2 02/14/2020 [facility] mmol/L 10:38 AM CDT Specimen Anatomical Collection Method Collection Time Receive d Time (Source) Location / / Volume Laterality Blood (Blood, 02/14/2020 9:34 AM 02/14/20 20 9:34 Venous) CDT AM CDT Lexus Fowler M.D., M.P.H. LAB BLOOD ADD-ON Performing Organization Address City/[facility]/ZIP Code Phon e Number [facility] [address] [place] [address] [facility] [address] (ABNORMAL) Creatinine with Estimated GFR (02/14/2020 9:34 AM CDT) athologist Signature Creatinine 1.26 0.74 - 02/14/2020 [facility] 1.35 mg/dL 10:38 AM CDT eGFR-Black/Afric 62 >=60 02/14/2020 [facility] an Maldivian mL/min/BSA 10:38 AM CDT Comment: ----ADDITIONAL INFORMATION---- Estimated GFR calculated using the 2009 CKD_EPI creatinine equation. eGFR Non-Black/ 54 (L) >=60 mL/min/BSA 02/14/2020 10:38 AM CDT [facility] Maldivian Comment: ----ADDITIONAL INFORMATION---- Estimated GFR calculated using the 2009 CKD_EPI creatinine equation. Specimen Anatomical Collection Method Collection Time Receive d Time (Source) Location / / Volume Laterality Blood (Blood, 02/14/2020 9:34 AM 02/14/20 20 9:34 Venous) CDT AM CDT Lexus Fowler M.D., M.P.H. LAB BLOOD ADD-ON Performing Organization Address City/[facility]/ZIP Code Phon e Number [address] [address] [facility] [place], [place] [id number] [place] [address] documented in this encounter Visit Diagnoses Diagnosis Diabetes Mellitus Type 2 With Diabetic N europathy (HCC) Maintenance Health Adult documented in this encounter Care Teams Flame Cutting Supervisor Relationship Specialty Start Date End Date Lexus Fowler M.D., M.P.H. PCP - General 11/14/18 11/13/21 [address] [place] [address] documented as of this encounter
--- OUTSIDE RECORDS SUMMARY | 2022-02-03 15:05 | XMS_ITS | Encounter Summary ---
:1940 Author Organization [facility] Address [address] [place] [address] Care Team Providers Name Role Phone Lexus Fowler M.D., M.P.H. Primary Care Provider [phone] Encounter Details Date Type Department Care Team Description 08/15/2020 Hospital Encounter Department of Lexus Fowler Diab etes Mellitus Laboratory Medicine Alonso Lassiter, M.P .H. Type 2 [address] Diabetic Neuropathy [place], [place] ([facility]) [address] [facility] [address] [place], [place] [phone] [address] (Work) [phone] Social History Tobacco Use Types Packs/Day Years [...] 10/29/2020 relatives? How often do you attend gnosticist or hinduism services? Patien t refused 10/29/2020 Do you belong to any clubs or organizations such as Not aske d gnosticist groups, unions, fraternal or athletic groups, or [...] place to sleep or slept in a group home (including now)? Sex Assigned at Date [...] (two) With Diabetic Neuropathy times a day. ([facility]) ONETOUCH ULTRA BLUE TEST daily. for 3 01/07/2018 08/16/2020 STRIP strips testing rosuvastatin (CRESTOR) 10 Take 1 tablet (10 100 tablet 3 01/23/2021 mg tabletIndications: mg total) by Hyperlipidemia mouth daily. documented as of this encounter Plan of Treatment Not on filedocumented as of this encounter Procedures Procedure Name Priority Date/Time Associated Diagnosis Comme nts HEMOGLOBIN A1C, B Routine 08/15/2020 8:06 AM Diabetes Mellitus Results for this CDT Type 2 With Diabetic procedu re are in Neuropathy (HCC) the results section. documented in this encounter Results (ABNORMAL) Hemoglobin A1c (08/15/2020 8:06 AM CDT) P athologist Signature Hemoglobin A1c, 6.9 (H) 4.0 - 5.6 08/15/2020 DTL B % 1:00 PM CDT Comment: Hemoglobin A1c values greater than or eq ual to 6.5 percent are diagnostic for diabetes mellitus. ?? Diagnosis should be confirmed by repeat testing. ??In diabet ic patients, HbA1c goals should be discussed with healthcar e provider. Specimen Anatomical Collection Method Collection Time Receive d Time (Source) Location / / Volume Laterality Blood (Blood, 08/15/2020 8:06 AM 08/16/19 8:06 Venous) CDT AM CDT Lexus Fowler M.D., M.P.H. LAB BLOOD ADD-ON Performing Organization Address City/State/ZIP Code Phon e Number [facility] - [address] [place] [address] [address] [facility] [place] [address] [facility] 200 [facility] documented in this encounter Visit Diagnoses Diagnosis Diabetes Mellitus Type 2 With Diabetic N europathy (HCC) documented in this encounter Care Teams Petroleum Terminal Plant Operator Relationship Specialty Start Date End Date Lexus Fowler M.D., M.P.H. PCP - General 11/14/18 11/13/21 [address] [place] [address] documented as of this encounter
--- OUTSIDE RECORDS SUMMARY | 2022-02-03 15:05 | XMS_ITS | Encounter Summary ---
:1940 Author Organization [facility] Address [address] [place] [address] Care Team Providers Name Role Phone Lexus Fowler M.D., M.P.H. 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 [address] [place] [address] Referral ID Status Reason Start Date Expiration Date Visits Requ ested Visits Authorized [id number] Closed 01/08/2020 01/07/2021 1 1 Encounter Details Date Type Department Care Team Description 03/06/2020 Procedure visit Department of Belkis Richter Onychomy cosis (Primary Dx); Orthopedic Surgery A, ALEN, C.N.P. Callus [place] Foot; in [place], Dystrophic Toe nail; [place] Diabetes Mellitus Type 2 Wit h Diabetic Polyneuropathy (HCC); [address] [place] [address] Diabetes Mellitus 2 Ulcer To e (HCC); [place], [place] Deformity Cavu s Foot Acquired Right [phone] Social History Tobacco Use Types Packs/Day Years [...] How often do you attend shinto or mormon services? Patien t refused 10/29/2020 Do you belong to any clubs or organizations such as Nabil borrero shinto groups, [employer], [employer] or athletic groups, or school groups? How [...] place to sleep or slept in a intermediate (including now)? Sex Assigned at Date Recorded Not on file documented as of this encounter Progress Notes Belkis Richter, ALEN, C.N.P. - 03/06/2020 8:00 AM CDT SUBJECTIVE Pain reported: CHIEF COMPLAINT / REASON FOR VISIT Vinayak Vazquez is a 79 y.o. male who presents for podiatry care and is under the care of Lexus Fowler M.D., M.P.H.. HISTORY OF PRESENT ILLNESS Mr. 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 He currently is followed in Wound Clinic, last seen February 18. He follows in Podiatry for care of hypertrophied toenails and callus. He currently notes no difficulty with toenail care, and continues dressings to the right great toe with promogran as advised. He denies pain, but acknowledges symptoms of numbness. There is no history of foot surgery. He has orthotics, but states that his tennis shoes are more comfortable. He has cut a hole out of the corner arise right shoe medially to make room for his dressing. He spends much of his time o utdoors. He last saw Dr. Lexus Fowler and Dr. Raul Dunlap ([facility]) February 14, 2020 for activecare management. His surgical history is notable for: Past Surgical History: Procedure Laterality Date ??? APPENDECTOMY ??? ARTHROPLASTY KNEE N/A 12/19/2004 >Left total knee arthroplasty. ??? FORAMINOTOMY N/A 09/11/2013 >Right L5-S1 redo foraminotomy. ??? JOINT REPLACEMENT ??? KNEE ARTHROPLASTY TOTAL Right 12/25/2013 knee arthroplasty total ??? LAMINOTOMY/HEMILAMINOTOMY/BILATERAL HEMILAMINECTOMY POSTERIOR - MINIMAL ACCESS N/A 11/18/2010 >Right L5-S1 hemilaminectomy, diskectomy under the microscope. REVIEW OF SYSTEMS Review of Systems OBJECTIVE Vital Signs vitals were not taken for this visit. PHYSICAL EXAM Ortho Exam General: Alert, oriented, no acute distress Skin: Hair growth scant. Skin pigment pale with varicosities. Skin texture is thin, dry. Skin temperature is cool. He has a nucleated callus with associated diffuse hyperkeratotic buildup L1 submetatarsal head and R1 submetatarsal head with hemosiderin deposit. Additional hyperkeratotic buildup L5 submetatarsal head, and R5 submetatarsal head with hemosiderin deposit. His right great toe ulcer remains clean based after paring with bogginess medially. Fairly acute erythematous skin around it dorsal medially. 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 He is also preparing for his trip to [place]. There is no sign of infection. The tissue is granulating well. Onychomycosis involving R1 as evidenced by long, thickened dystrophic toenails with yellow discoloration and crumbling and subungal involvement. Remaining toenails are long, thickened, and dystrophic. Many of the toenails extend over the ends of the toes due to distal attachment sites. Vessels: Dorsalis pedis pulses intact. Posterior tibial pulses not palpable. No edema. Varicosities noted. Musculoskeletal: No class A findings. Cavus foot deformity and significant fat pad atrophy noted. DIAGNOSTICS Hemoglobin A1c, B Date Value Ref Range Status 02/12/2020 6.7 (H) 4.0 - 5.6 % Final Comment: Hemoglobin A1c values greater than or equal to 6.5 percent are diagnostic for diabetes mellitus. Diagnosis should be confirmed by repeat testing. In diabetic patients, HbA1c goals should be discussed with healthcare provider. 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 Nail folds were gently curetted. Skin intact. A number 15 blade was used to pare 5 calluses and ulcer, then the remaining calluses were smoothed with electric sanding bur. Postprocedurepain 0. His right great toe ulcer was dressed with Xeroform gauze since I do not have promogran at my disposal. Patient was provided my business card should concerns arise prior to return visit first week in August upon his return from [place]. Discussed the risks, benefits, alternatives, and the necessity of other members of the health care team participating in the procedure. ??All questions answered and consent given. ?? Procedural pause conducted to verify: correct patient identity, procedure to be performed, and as applicable, correct side and site, correct patient position, and availability of special equipment or special requirements. ?? Learning needs assessment was performed. No learning barriers were identified. Explained diagnosis and treatment plan. Patient expressed understanding and was able to teach back. ?? The risks, benefits, and alternatives to the planned procedure were discussed in detail, including the risk of exposure to COVID-19 within the facility. Careful consideration was given to the urgency of the procedure, which has been reviewed and confirmed by practitioner. Both provider and patient were masked during the entire procedure, and appropriate hand washing and social distancing measures employed. documented in this encounter Plan of Treatment Not on filedocumented as of this encounter Visit Diagnoses Diagnosis Onychomycosis - Primary Callus [place] Foot Dystrophic Toenail Diabetes Mellitus Type 2 With Diabetic P olyneuropathy (HCC) Diabetes Mellitus 2 Ulcer Toe (HCC) Deformity Cavus Foot Acquired Right documented in this encounter Care Teams Chart Picker Relationship Specialty Start Date End Date Lexus Fowler M.D., M.P.H. PCP - General 11/14/18 11/13/21 [address] [place] [address] documented as of this encounter
--- OUTSIDE RECORDS SUMMARY | 2022-02-03 15:05 | XMS_ITS | Encounter Summary ---
:1940 Author Organization [facility] Address [address] [place] [address] Care Team Providers Name Role Phone Lexus Fowler M.D., M.P.H. Primary Care Provider Encounter Details Date Type Department Care Team Description 01/17/2020 Nurse Triage Department of [facility] Shaina Barr, Medicine, [facility], [facility] [address] [place] [address] [address] [place] [address] Social History Tobacco Use Types Packs/Day Years [...] 10/29/2020 relatives? How often do you attend lutheran or rastafarian services? Patien t refused 10/29/2020 Do you belong to any clubs or organizations such as Nabil borrero lutheran groups, unions, fraternal or athletic groups, or [...] place to sleep or slept in a skilled nursing (including now)? Sex Assigned at Date Recorded Not on file documented as of this encounter Plan of Treatment Not on filedocumented as of this encounter Visit Diagnoses Not on filedocumented in this encounter Care Teams Resistor Testing Machine Operator Relationship Specialty Start Date End Date Lexus Fowler M.D., M.P.H. PCP - General 11/14/18 11/13/21 [address] [place] [address] documented as of this encounter
--- OUTSIDE RECORDS SUMMARY | 2022-02-03 15:05 | XMS_ITS | Encounter Summary ---
:1940 Author Organization [facility] Address [address] [place] [address] Care Team Providers Name Role Phone Lexus Fowler M.D., M.P.H. Primary Care Provider [phone] Reason for Visit Reason Comments Med Refill Encounter Details Date Type Department Care Team Description 01/14/2020 Refill Department of Family Medicine, Enedelia Tafoya M.D. Med Refill [place], in [address] [place] [address] [address] [place] [address] [phone] Social History Tobacco Use Types Packs/Day Years [...] 10/29/2020 relatives? How often do you attend restorationism or sabianist services? Patien t refused 10/29/2020 Do you belong to any clubs or organizations such as Nabil borrero restorationism groups, unions, fraternal or athletic groups, or [...] Primary documented in this encounter Care Teams Chief Innovation Officer Relationship Specialty Start Date End Date Lexus Fowler M.D., M.P.H. PCP - General 11/14/18 11/13/21 [address] [place] [address] documented as of this encounter
--- OUTSIDE RECORDS SUMMARY | 2022-02-03 15:05 | XMS_ITS | Encounter Summary ---
:1940 Author Organization [facility] Address [address] [place] [address] Care Team Providers Name Role Phone Lexus Fowler M.D., M.P.H. Primary Care Provider [phone] Reason for Visit Reason Comments Communication Dr. Lexus Fowler Encounter Details Date Type Department Care Team Description 12/25/2019 Clinical Department of Lexus Fowler (Dr. [facility] Family MedicineMaikol M.D., M.P.H. Lexus Fowler ) [facility] [address] [facility] in [place], [place] [address] [address] [facility] [phone] [place], [place] (Work) [address] Social History Tobacco Use Types Packs/Day Years [...] 10/29/2020 relatives? How often do you attend sabianism or adventism services? Patien t refused 10/29/2020 Do you belong to any clubs or organizations such as Nabil borrero sabianism groups, unions, fraternal or athletic groups, or [...] this encounter Miscellaneous Notes Telephone Encounter - Marshal Martínez R.N. - 12/25/2019 2:49 PM CDT SUBJECTIVE CHIEF COMPLAINT / REASON FOR CALL Communication (Dr. Lexus Fowler ) Information Discussed Patient was contacted to gather more information as she had not seen anything regarding the patient's shoe prescription come across her desk recently. He states that the pharmacy that he goes through to get them had sent some thing over to her via fax. He is not sure what was sent. He did state that he used [facility] in [place] for his shoes. He will contact [facility] in [place] to resend the needed paperwork. While on the phone, that patient also asked why he was needing to get the Hep B vaccine series. The patient stated, no one else I know is having to get one. After reading the [facility] vaccine schedule, the patient believes it might be because of his diabetes. Patient has no further questions. He will follow-up with the pharmacy to resend any needed paperwork to Dr. Fowler. PLAN Disposition/Recommendation: self-care is appropriate at this time, patient encouraged to call back with questions and as noted above Information/Education: patient/caller able to teach back Caller agreeable to plan of care: yes The following references were used: nursing clinical judgement Telephone Encounter - Lexus Fowler M.D., M.P.H. - 12/25/2019 2:30 PM CDT I am not sure if I have seen a prescription from the pharmacy for his shoes. I provided a prescription in September, is that what he is referring to? I do not have any new things in my mailbox, and am unsurewhat timeframe he is referring to. Could we please call him to clarify, and determine if the pharmacy needs to send something? I am happy to fill anything out that he needs. Maybe we or he could clarify with the pharmacy to determine if this has been done or if they are waiting for something. Thank you, Marylin Fowler Telephone Encounter - Vipin Velez - 12/25/2019 12:54 PM CDT Caller: Vinayak Vazquez Relationship to Patient: [phone] Callback Number: [phone] Pharmacy: [facility] Request/Details: Pt called to check on status of Rx for diabetic shoes sent from pharmacy. Pt wants to know if AUTH or signature completed by PCP & sent back. Please advise, pt wants to vegetable picker Rx from pharmacy tomorrow. Thank you. documented in this encounter Plan of Treatment Not on filedocumented as of this encounter Visit Diagnoses Not on filedocumented in this encounter Care Teams Qa Automation Architect Relationship Specialty Start Date End Date Lexus Fowler M.D., M.P.H. PCP - General 11/14/18 11/13/21 [address] [place] [address] documented as of this encounter
--- OUTSIDE RECORDS SUMMARY | 2022-02-03 15:05 | XMS_ITS | Encounter Summary ---
:1940 Author Organization [facility] Address [address] [place] [address] Care Team Providers Name Role Phone Lexus Fowler M.D., M.P.H. Primary Care Provider [phone] Reason for Referral Outpatient (Routine) - Closed Specialty Diagnoses / Procedures Referred By Contact Refer red To Contact Orthopedic Surgery Diagnoses Onychomycosis Callus [place] Foot Dystrophic Toenail Diabetes Mellitus Type 2 With Diabetic Polyneuropathy (HCC) Diabetes Mellitus 2 Ulcer Toe (HCC) Deformity Cavus Foot Acquired Right Belkis Richter [facility] ALEN, C.N.P. [address] [place] [address] Referral ID Status Reason Start Date Expiration Date Visits Requ ested Visits Authorized [id number] Closed 01/08/2020 01/07/2021 1 1 Reason for Visit Outpatient (Routine) - Closed Specialty Diagnoses / Procedures Referred By Contact Refer red To Contact Orthopedic Surgery Diagnoses Onychomycosis Callus [place] Foot Dystrophic Toenail Diabetes Mellitus Type 2 With Diabetic Polyneuropathy (HCC) Diabetes Mellitus 2 Ulcer Toe (HCC) Belkis Richter [facility] ALEN, C.N.P. [address] [place] [address] Referral ID Status Reason Start Date Expiration Date Visits Requ ested Visits Authorized [id number] Closed 11/15/2019 11/14/2020 1 1 Encounter Details Date Type Department Care Team Description 01/08/2020 Procedure visit Department of Belkis Richter (Primary Dx); Orthopedic Surgery ALEN Lozano, C.N.P. Callus [place] Foot; in [place], Dystrophic Toe nail; [place] Diabetes Mellitus Type 2 Wit h Diabetic Polyneuropathy (HCC); [address] Diabetes Mellitus 2 Ulcer To e (HCC); [place], [place] Deformity Cavu s Foot Acquired Right [phone] Social History Tobacco Use Types Packs/Day Years [...] How often do you attend mandaeism or restoration services? Patien t refused 10/29/2020 Do you [...] or slept in a mcc (including now)? Sex Assigned at Date Recorded Not on file documented as of this encounter Progress Notes Belkis Richter, ALEN, C.N.P. - 01/08/2020 8:30 AM CDT SUBJECTIVE Pain reported: CHIEF COMPLAINT [...] is followed in Wound Clinic, last seen December 03. He follows in Podiatry for care of hypertrophied toenails and callus. He currently notes no difficulty with toenail care, and continues dressings to the right great toe with Iodosorb and Hydrogel as advised. He denies pain, but acknowledges symptoms of numbness. There is no history of foot surgery. He has orthotics, but states that his tennis shoes are more comfortable. He goesbarefoot indoors. He spends much of his time outdoors. He last saw Dr. Leuxs Fowler and Dr. Raul Dunlap ([facility]) September 28, 2019 for active care management. His surgical history is notable for: [...] buildup L1 submetatarsal head and R1 submetatarsal head. Additional hyperkeratotic buildup L5 submetatarsal head, and R5 submetatarsal head. His right great toe plantar surface ulcer measures 6 mm x 12 mm after paring, and there is additional area of bogginess medially. Minimal chronic- appearing pink skin around it. There is no sign of infection. The [...] A1c, B Date Value Ref Range Status 09/26/2019 6.5 (H) 4.0 - 5.6 % Final Comment: [...] toenail was debrided with electric bur then remaining toenails were trimmed with nail nipper. Nail folds were gently curetted. Skin intact. A number 15 blade was used to pare 3 calluses and ulcer, then the remaining calluses were pared with electric sanding bur. Postprocedure pain 0. His right great toe ulcer was dressed with Xeroform gauze since I do not have Iodosorb and Hydrogel at my disposal. I emphasized the importance of daily foot inspection, limiting ambulation,using his shoe wear indoors as well as outdoors with orthotic inserts at all times and application of foot cream daily to aid healing and moisturization of the skin. He will be following up next week with Wound Clinic. Patient was provided my business card should concerns arise prior to return visit 6weeks given rapid toenail growth over the ends of the toes. Discussed the risks, benefits, alternatives, and the [...] Name Type Priority Associated Diagnoses Order [facility] Orthopedic Surgery Outpatient Referral Routine Onychomyc osis Expected: office visit Callus [place] Foot 02/19/2020 (clinic) Dystrophic Toena il (Approximate), Diabetes Mellitus Type Expir es: 2 With Diabetic 01/07/2023 Polyneuropathy ( HCC) Diabetes Mellitus 2 Ulcer Toe (HCC) Deformity Cavus Foot Acquired Right documented as of this encounter Visit Diagnoses Diagnosis Onychomycosis - Primary Callus [place] Foot Dystrophic Toenail Diabetes Mellitus Type 2 With Diabetic P olyneuropathy (HCC) Diabetes Mellitus 2 Ulcer Toe (HCC) Deformity Cavus Foot Acquired Right documented in this encounter Care Teams Defensive Fire Control Systems Operator Relationship Specialty Start Date End Date Lexus Fowler M.D., M.P.H. PCP - General 11/14/18 11/13/21 [address] [place] [address] documented as of this encounter
--- OUTSIDE RECORDS SUMMARY | 2022-02-03 15:05 | XMS_ITS | Encounter Summary ---
:1940 Author Organization [facility] Address [address] [place] [address] Care Team Providers Name Role Phone Lexus Fowler M.D., M.P.H. Primary Care Provider [phone] Encounter Details Date Type Department Care Team [...] 10/29/2020 relatives? How often do you attend confucianist or moravian services? Patien t refused 10/29/2020 Do you belong to any clubs or organizations such as Nabil borrero confucianist groups, unions, fraternal or athletic groups, or [...] slept in a senior living (including now)? Sex Assigned at Date Recorded Not on file documented as of this encounter Plan of Treatment Not on filedocumented as of this encounter Procedures Procedure Name Priority Date/Time Associated Diagnosis Comme nts VASCULAR IMAGE EXAM Routine 01/15/2020 9:15 AM Re sults for this CDT procedure are i n the results section. documented in this encounter Results Foot, Right-Vascular Image Exam (01/15/2020 9:15 AM CDT) Specimen (Source) Anatomical Collection Method Collection Time Re ceived Time Location / / Volume Laterality 01/15/2020 9:15 AM CDT Narrative [facility] - 01/15/2020 9:17 AM CDT This order has been created [...] on filedocumented in this encounter Care Teams Business Administration Program Chair Relationship Specialty Start Date End Date Lexus Fowler M.D., M.P.H. PCP - General 11/14/18 11/13/21 [address] [place] [address] documented as of this encounter
--- OUTSIDE RECORDS SUMMARY | 2022-02-03 15:05 | XMS_ITS | Encounter Summary ---
:1940 Author Organization [facility] Address [address] [place] [address] Care Team Providers Name Role Phone Lexus Fowler M.D., M.P.H. Primary Care Provider [phone] Encounter Details Date Type Department Care Team Description 02/19/2020 Ancillary Procedure Department of Vascular Social History [...] 10/29/2020 relatives? How often do you attend catholic or synagogue services? Patien t refused 10/29/2020 Do you belong to any clubs or organizations such as Nabil borrero catholic groups, unions, fraternal or athletic groups, or [...] or slept in a jail (including now)? Sex Assigned at Date Recorded Not on file documented as of this encounter Plan of Treatment Not on filedocumented as of this encounter Procedures Procedure Name Priority Date/Time Associated Diagnosis Comme nts VASCULAR IMAGE EXAM Routine 02/19/2020 2:15 PM Re sults for this CDT procedure are i n the results section. documented in this encounter Results Foot, Right-Vascular Image Exam (02/19/2020 2:15 PM CDT) Specimen (Source) Anatomical Collection Method Collection Time Re ceived Time Location / / Volume Laterality 02/19/2020 2:11 PM CDT Narrative IIMS - 02/19/2020 2:15 PM CDT This order has been created and [...] on filedocumented in this encounter Care Teams Lan Analyst Relationship Specialty Start Date End Date Lexus Fowler M.D., M.P.H. PCP - General 11/14/18 11/13/21 [address] [place] [address] documented as of this encounter
--- OUTSIDE RECORDS SUMMARY | 2022-02-03 15:05 | XMS_ITS | Encounter Summary ---
:1940 Author Organization [facility] Address [address] [place] [address] Care Team Providers Name Role Phone Lexus Fowler M.D., M.P.H. Primary Care Provider Reason for Referral Outpatient (Routine) - Closed Specialty Diagnoses / Procedures Referred By Contact Refer red To Contact Diagnoses Cyst Sebaceous Inflamed Med Duff M.D., [facility] Procedures Incision and Drainage J.D. [address] [place] [address] Referral ID Status Reason Start Date Expiration Date Visits Requ ested Visits Authorized [id number] Closed 01/18/2020 01/17/2021 1 1 Reason for Visit Reason Comments Other boils Appointment Request (Routine) - Closed Specialty Diagnoses / Procedures Referred By Contact Refer red To Contact Community Pediatric and Adolescent Medicine Referral ID Status Reason Start Date Expiration Date Visits Requ ested Visits Authorized [id number] Closed 01/17/2020 01/16/2021 1 1 Encounter Details Date Type Department Care Team Description 01/18/2020 Office Visit Department of Med [facility] Sebaceous Medicine, [facility] Evie Gupta Inflamed (Primary Dx) [facility], [place] [address] [place], [place] [address] [facility] [address] [place] [address] [phone] Social History Tobacco Use Types Packs/Day Years [...] 10/29/2020 relatives? How often do you attend spiritism or judaism services? Patien t refused 10/29/2020 Do you belong to any clubs or organizations such as Nabil borrero spiritism groups, unions, fraternal or athletic groups, or [...] or slept in a usp (including now)? Sex Assigned at Date Recorded Not on file documented as of this encounter Last Filed Vital Signs Vital Sign Reading Time Taken Comments Blood Pressure 133/63 01/18/2020 2:31 PM connex spot a verage CDT Pulse 60 01/18/2020 2:31 PM CDT Temperature - - Respiratory Rate - - Oxygen Saturation - - Inhaled Oxygen - - Concentration Weight 93.4 kg (205 lb 14.6 01/18/2020 2:31 PM oz) CDT Height - - Body Mass Index 28.67 09/22/2018 1:36 PM CDT documented in this encounter Procedure Notes Med Duff M.D., J.D. - 01/18/2020 3:00 PM CDTAssociated Order(s): Incision and Drainage Post-Procedure Diagnose(s): Cyst Sebaceous Inflamed Incision and Drainage Date/Time: 01/18/2020 5:45 PM Performed by: Med Duff M.D., Evie Authorized by: Med Duff M.D., J.D. Care team members present 1. Med Duff M.D., Evie 2. Ishan Marie M.D. PROCEDURE DETAILS Complexity: Simple Ultrasound guidance: no Needle aspiration: no Incision types: Stab incision Incision depth: Dermal Incision length (cm): 1 Scalpel blade: 11 Wound management: Probed and deloculated and manually decompressed Drainage: Serous Drainage amount: Scant Wound treatment: Wound left open Procedural Medication The following medications were administered at the target site(s): 1 mL lidocaine-EPINEPHrine 1 %-1:100,000 CONSENT Consent obtained: verbal Consent given by: [...] procedure and confirmed in a procedural pause. PRE PROCEDURE DETAILS Indication: Cyst Location: Neck Neck location: Left posterior Length (cm): 1 Width (cm): 1 Site preparation: Alcohol SEDATION / ANESTHESIA Anesthesia method: local infiltration Local infiltrate type: lidocaine 1% WITH epi POST PROCEDURE DETAILS Procedure completed successful: yes Tetanus status up to date: Up to date Complications: no immediate complications Associated attestation - Ishan Marie M.D. - 01/23/2020 8:52 AM CDT I was present during all critical and og portions of the procedure(s) and immediately available to furnish services the entire duration. See resident/fellow note for details. documented in this encounter Plan of Treatment Not on filedocumented as of this encounter Procedures Procedure Name Priority Date/Time Associated Diagnosis Comme nts INCISION AND Routine 01/18/2020 3:00 PM Cyst Sebaceous Results for this DRAINAGE CDT Inflamed procedure are i n the results section. documented in this encounter Results PROCEDURE PLACEHOLDER (01/18/2020 3:00 PM CDT) Narrative MMODAL - 01/18/2020 3:00 PM CDT Med Duff M.D., Evie ? 01/18/2020 ??5:47 PM Incision and Drainage Date/Time: 01/18/2020 5:45 PM Performed by: Med Duff M.D., Surekha Jacob Authorized by: Med Duff M.D., Evie Care team members present 1. Med Duff M.D., Evie 2. Ishan Marie M.D. PROCEDURE DETAILS Complexity: ??Simple Ultrasound guidance: no ?? Needle aspiration: no ?? Incision types: ??Stab incision Incision depth: ??Dermal Incision length (cm): ??1 Scalpel blade: ??11 Wound management: ??Probed and deloculat ed and manually decompressed Drainage: ??Serous Drainage amount: ??Scant Wound treatment: ??Wound left open Procedural Medication The following medications were administe red at the target site(s): ?? 1 mL lidocaine-EPINEPHrine 1 %-1:100,000 CONSENT Consent obtained: verbal Consent given by: [...] and confirmed in a procedu ral pause. PRE PROCEDURE DETAILS Indication: ??Cyst Location: ??Neck Neck location: ??Left posterior Length (cm): ??1 Width (cm): ??1 Site preparation: ??Alcohol SEDATION / ANESTHESIA Anesthesia method: local infiltration Local infiltrate type: lidocaine 1% WITH epi POST PROCEDURE DETAILS Procedure completed successful: yes ?? Tetanus status up to date: ??Up to date Complications: no immediate complication s ?? Med Duff M.D., J.D. PROCEDURE/MINOR SURGICAL O RDERABLES Performing Organization Address City/State/ZIP Code Phon e Number MMODAL MMODAL NA documented in this encounter Visit Diagnoses Diagnosis Cyst Sebaceous Inflamed - Primary documented in this encounter Administered Medications Inactive Administered Medications - up to 3 most recent administrations Medication Order MAR Action Action Date Dose Rate Site lidocaine-EPINEPHrine 1 %-1:100,000 Given 01/18/2020 5:45 PM CDT 1 mL injection 1 mL (XYLOCAINE W/EPI) 1 mL, infiltration, One-Time Injection, Starting on Awa 01/18/20 at 1745, For 1 dose documented in this encounter Care Teams Inspector Agricultural Commodities Relationship Specialty Start Date End Date Lexus Fowler M.D., M.P.H. PCP - General 11/14/18 11/13/21 [address] [place] [address] documented as of this encounter
--- OUTSIDE RECORDS SUMMARY | 2022-02-03 15:05 | XMS_ITS | Encounter Summary ---
:1940 Author Organization [facility] Address [address] [address] Care Team Providers Name Role Phone Lexus Fowler M.D., M.P.H. Primary Care Provider [phone] Reason for Visit Reason Comments COVID Inquiry Encounter Details Date Type Department Care Team Description 09/11/2020 Clinical Communication Department of Lexus Fowler Family MedicineMaikol M.D., M.P.H. [facility] [address] [facility] [address] [address] [facility] [phone] [place], [place] (Work) [address] [phone] Social History Tobacco Use Types Packs/Day Years [...] 10/29/2020 relatives? How often do you attend hindu or moravian services? Patien t refused 10/29/2020 Do you belong to any clubs or organizations such as Nabil borrero hindu groups, unions, fraternal or athletic groups, or [...] a [place] [facility] (including now)? Sex Assigned at Date Recorded Not on file documented as of this encounter Miscellaneous Notes Telephone Encounter - Maite Daniel - 09/11/2020 11:00 AM CDT What is the purpose of the call?: Standard Appointment Process Standard Appointment Process Have you tested positive for COVID-19 in the last 20 days OR do you have a pending COVID-19 test because you had symptoms?: No, neither apply What region is the appointment being requested?: More than 14 days [place]- follow local process (End Screening) Testing Recommendation Endpoint Is testing recommended? : Not recommended to test Plan: Endpoint recommendation: Followed regional OTG *Reminder if sending patient for testing in [facility] or [facility], route encounter to the correct testing pool. documented in this encounter Plan of Treatment Not on filedocumented as of this encounter Visit Diagnoses Not on filedocumented in this encounter Care Teams Communications Clerk Relationship Specialty Start Date End Date Lexus Fowler M.D., M.P.H. PCP - General 11/14/18 11/13/21 [address] [place] [address] documented as of this encounter
--- OUTSIDE RECORDS SUMMARY | 2022-02-03 15:05 | XMS_ITS | Encounter Summary ---
:1940 Author Organization [facility] Address [address] [place] [address] Care Team Providers Name Role Phone Lexus Fowler M.D., M.P.H. Primary Care Provider [phone] Reason for Referral Outpatient (Routine) - Closed Specialty Diagnoses / Procedures Referred By Contact Refer red To Contact Family Lexus Grace M.D., Jeuss Owusu M.P.H. [address] [place] [phone] Referral ID Status Reason Start Date Expiration Date Visits Requ ested Visits Authorized [id number] Closed 02/14/2020 02/13/2021 1 1 Reason for Visit Reason Comments Diabetes and hypertension Outpatient (Routine) - Closed Specialty Diagnoses / Procedures Referred By Contact Refer red To Contact Family Lexus Grace M.D., Jesus Owusu M.P.H. 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 Diabetes Mellitus Type 2 (HCC); Family Clinic [address] [facility] Adult; brandon Hernandez [place], [place] Hyperten brook [facility] Primary; [place] [address] Hyperlipidemia [address] [facility] [phone] SHADI HERNANDEZ (Work) [phone] Social History Tobacco Use Types Packs/Day Years [...] How often do you attend gnosticist or evangelical services? Patien t refused 10/29/2020 Do you belong to any clubs or organizations such as Nabil borrero gnosticist groups, unions, fraternal or athletic groups, [...] Sign Reading Time Taken Comments Blood Pressure 127/65 02/14/2020 8:42 AM CDT Pulse 51 02/14/2020 8:42 AM CDT Temperature - - Respiratory Rate - - Oxygen Saturation - - Inhaled Oxygen Concentration - - Weight 92.7 kg (204 lb 5.9 oz) 02/14/2020 8:42 AM CDT Height - - Body Mass Index 28.45 09/22/2018 1:36 PM CDT documented in this encounter Progress Notes Lexus Fowler M.D., M.P.H. - 02/14/2020 9:00 AM CDT SUBJECTIVE CHIEF COMPLAINT / REASON FOR VISIT Vinayak Vazquez is a 79 y.o. male who presents for evaluation of Diabetes (and hypertension). HISTORY OF PRESENT ILLNESS Mr. Vazquez??is a 78-year-old man past medical history diabetes type 2, hypertension, hyperlipidemia, elevated PSA who presents today for follow-up his diabetes and hypertension. # Diabetes Currently on metformin 500 mg 2 times daily. On Crestor 10 mg daily. Most recent A1c 6.7 on 02/12/2020. He reports he is doing well. He gets his eyes checked yearly, most recently around December 16, 2019. He reports he is feeling well, and is tolerating the metformin well. # Hypertension Currently managed with amlodipine 5 mg daily, hydrochlorothiazide 50 mg daily, losartan 100 mg daily. He takes his blood pressure every morning with a home arm cuff, and it is always below 140/90. He says that his systolics are typically between 120 and 130. He does not feel is having any side effectsfrom his medications. # Diabetic ulcer great toe right great toe He has been following with vascular wound for his right great toe ulcer. He has diabetic footwear, that he wears regularly. He has been using Iodosorb and Hydrogel in a 75:25 combination. He feels thisis been getting better, and he has follow-up with the wound clinic on 03/06/2020. The following portions of the patient's history were reviewed and updated as appropriate: allergies,current medications, medical history, social history and problem list. OBJECTIVE PHYSICAL EXAM Vitals: 02/14/20 0842 BP: 127/65 Pulse: (!) 51 General: Well appearing man in no apparent distress. Pleasant, interactive. Cardiovascular: Regular rate and rhythm, no murmurs, rubs, or gallops. No JVD. Pulmonary: Clear to auscultation bilaterally, no wheezing, crackles, rales Skin: [place] and well perfused ASSESSMENT / PLAN #1 Diabetes Mellitus Type 2 (HCC) Assessment & Plan: He continues to do well from a diabetic standpoint. We will plan to see him back in 6 months time with a A1c ordered prior to his visit. [place] D5 for Diabetes: 1. Blood pressure (<140/90): 127/65, at goal 2. Taking a statin as recommended: On Crestor 10 mg daily 3. A1c <8%: 6.7 on 02/12/2020 4. Tobacco use: none, at goal 5. 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) - Albumin, Random, Urine; Future; Expected date: 02/14/2020 - Creatinine with Estimated GFR; Future; Expected date: 02/14/2020 - Potassium; Future; Expected date: 02/14/2020 - Sodium; Future; Expected date: 02/14/2020 - metFORMIN (GLUCOPHAGE) 500 mg tablet; Take 1 tablet (500 mg total) by mouth 2 (two) times a day., Starting Wed02/14/2020, Normal - Hemoglobin A1c; Future; Expected date: 08/13/2020 (Before next visit) #3 [facility] Adult - Lipid Panel; Future; Expected date: 02/14/2020 #4 Hypertension Essential Primary Assessment & Plan: Blood pressure continues to be well controlled. He continues to check his blood pressure at home. Wediscussed that his goal blood pressures less than 140/90, and should be higher than this, we would need to see him back for further evaluation. If he needed up titration of his medication, would favor increasing amlodipine though this is unnecessary at this time. We will plan for follow-up in 6 monthstime. He is getting his electrolyte labs done today. Will plan to preorder these prior to his visit this time next year. Orders: - amLODIPine (NORVASC) 5 mg tablet; Take 1 tablet (5 mg total) by mouth daily., Starting Wed02/14/2020, Normal - hydroCHLOROthiazide (HYDRODIURIL) 50 mg tablet; Take 1 tablet (50 mg total) by mouth daily., Starting Wed02/14/2020, Normal - losartan (COZAAR) 100 mg tablet; Take 1 tablet (100 mg total) by mouth daily., Starting Wed02/14/2020, Normal #5 Hyperlipidemia Assessment & Plan: Has history of hyperlipidemia, the full controlled on his Crestor 10 mg daily. Will plan to recheck lipids. Orders: - rosuvastatin (CRESTOR) 10 mg tablet; Take 1 tablet (10 mg total) by mouth daily., Starting 02/14/2020, Normal Other orders - Family Medicine office visit (clinic) - Family Medicine office visit (clinic); Future; Expected date: 08/13/2020 Associated attestation - Raul Dunlap D.O. - 02/16/2020 1:43 PM CDT I saw and evaluated the patient, participating in the og portions of the service. I reviewed the resident/fellow???s note. I agree with the resident/fellow???s findings and plan. documented in this encounter Miscellaneous Notes Assessment & Plan Note - Lexus Fowler M.D., M.P.H. - 02/14/2020 9:37 AM CDTAssociated Problem(s): Hypertension Essential Primary Blood pressure continues to be well controlled. He continues to check his blood pressure at home. Wediscussed that his goal blood pressures less than 140/90, and should be higher than this, we would need to see him back for further evaluation. If he needed up titration of his medication, would favor increasing amlodipine though this is unnecessary at this time. We will plan for follow-up in 6 monthstime. He is getting his electrolyte labs done today. Will plan to preorder these prior to his visit this time next year. Assessment & Plan Note - Lexus Fowler M.D., M.P.H. - 02/14/2020 9:36 AM CDTAssociated Problem(s): Hyperlipidemia Has history of hyperlipidemia, the full controlled on his Crestor 10 mg daily. Will plan to recheck lipids. Assessment & Plan Note - Lexus Fowler M.D., M.P.H. - 02/14/2020 7:31 AM CDTAssociated Problem(s): Diabetes Mellitus Type 2 (HCC) He continues to do well from a diabetic standpoint. We will plan to see him back in 6 months time with a A1c ordered prior to his visit. [place] D5 for Diabetes: 1. Blood pressure (<140/90): 127/65, at goal 2. Taking a statin as recommended: On Crestor 10 mg daily 3. A1c <8%: 6.7 on 02/12/2020 4. Tobacco use: none, at goal 5. Take ASA as recommended: on ASA 81 mg daily, at goal documented in this encounter Plan of Treatment Scheduled Referrals Name Type Priority Associated Diagnoses Order S [facility] Medicine Outpatient Referral Routine Expec margoth: office visit 08/13/2020 (clinic) (Approximate), Expires: 02/13/2023 documented as of this encounter Results (ABNORMAL) Hemoglobin A1c (08/15/2020 [...] Organization Address City/State/ZIP Code Phon e Number [facility] - [address] [place], [place] [address] [facility] [place] [address] [facility] [address] Albumin, Random, Urine (02/14/2020 9:44 AM CDT) athologist Signature Albumin, 9.8 mg/L 02/14/2020 DTL Random, U 3:19 PM CDT Comment: ----ADDITIONAL INFORMATION---- This test has been modified from the man ufacturer's instructions. Its performance characteri stics were determined by [facility] in a manner co nsistent with [...] Volume Laterality Urine (Urine, 02/14/2020 9:44 AM 02/14/20 20 1:46 Clean Catch) CDT PM CDT Lexus Fowler M.D., M.P.H. LAB URINE ORDERABLES Performing Organization Address City/State/ZIP Code Phon e Number [facility] - 200 [place], [place] [address] [facility] [place] [address] [place] [address] Lipid Panel (02/14/2020 9:34 AM CDT) athologist [...] Calculated 48 mg/dL 020 12:40 PM CDT DT Comment: ----REFERENCE VALUE---- Desirable: <130 Above Desirable: 130-159 Borderline high: 160-189 High: 190-219 Very high: > or =220 Specimen Anatomical Collection Method Collection Time Receive d Time (Source) Location / / Volume Laterality Blood (Blood, 02/14/2020 9:34 AM 02/14/20 20 Venous) CDT 12:20 PM CDT Lexus Fowler M.D., M.P.H. LAB BLOOD ADD-ON Performing Organization Address City/[facility]/ZIP Code Phon e Number [facility] - 200 [place], [place] [address] [facility] [address] [facility] 200 [facility] Sodium (02/14/2020 9:34 AM CDT) P athologist Signature Sodium, P 136 135 - 145 02/14/2020 [facility] mmol/L 10:38 AM CDT Specimen Anatomical Collection Method Collection Time Receive d Time (Source) Location / / Volume Laterality Blood (Blood, 02/14/2020 9:34 AM 02/14/20 20 9:34 Venous) CDT AM CDT Lexus Fowler M.D., M.P.H. LAB BLOOD ADD-ON Performing Organization Address City/State/ZIP Code Phon e Number [facility] [address] [place] [address] [place] [address] [address] [facility] Potassium (02/14/2020 9:34 AM CDT) P athologist Signature Potassium, P 4.3 3.6 - 5.2 02/14/2020 [facility] mmol/L 10:38 AM CDT Specimen Anatomical Collection Method Collection Time Receive d Time (Source) Location / / Volume Laterality Blood (Blood, 02/14/2020 9:34 AM 02/14/20 20 9:34 Venous) CDT AM CDT Lexus Fowler M.D., M.P.H. LAB BLOOD ADD-ON Performing Organization Address City/[facility]/ZIP Code Phon e Number [address] [address] [place], [place] [phone] [place] [address] (ABNORMAL) Creatinine with Estimated GFR (02/14/2020 9:34 AM CDT) P athologist Signature Creatinine 1.26 0.74 - 02/14/2020 [facility] 1.35 mg/dL 10:38 AM CDT eGFR-Black/Afric 62 >=60 02/14/2020 [facility] an Burkin[place] mL/min/BSA 10:38 AM CDT Comment: ----ADDITIONAL INFORMATION---- Estimated GFR calculated using the 2009 CKD_EPI creatinine equation. eGFR Non-Black/ 54 (L) >=60 mL/min/BSA 02/14/2020 10:38 AM CDT [facility] [place] Comment: ----ADDITIONAL INFORMATION---- Estimated GFR calculated using the 2009 CKD_EPI creatinine equation. Specimen Anatomical Collection Method Collection Time Receive d Time (Source) Location / / Volume Laterality Blood (Blood, 02/14/2020 9:34 AM 02/14/20 20 9:34 Venous) CDT AM CDT Lexus Fowler M.D., M.P.H. LAB BLOOD ADD-ON Performing Organization Address City/[facility]/ZIP Code Phon e Number [address] [address] [facility], [place] [id number] [place] [address] documented in this encounter Visit Diagnoses Diagnosis Diabetes Mellitus Type 2 With Diabetic N europathy (HCC) - Primary Diabetes Mellitus Type 2 (HCC) Maintenance Health Adult Hypertension Essential Primary Hyperlipidemia documented in this encounter Care Teams Process Inspector Relationship Specialty Start Date End Date Lexus Fowler M.D., M.P.H. PCP - General 11/14/18 11/13/21 [address] [place] [address] documented as of this encounter
--- OUTSIDE RECORDS SUMMARY | 2022-02-03 15:05 | XMS_ITS | Encounter Summary ---
:1940 Author Organization [facility] Address [address] [place] [address] Care Team Providers Name Role Phone Lexus Fowler M.D., M.P.H. Primary Care Provider [phone] Reason for Visit Reason Comments Med Refill Encounter Details Date Type Department Care Team Description 08/19/2020 Refill Department of [facility] Lexus Fowler M.D., Med Refill Medicine, [facility] M.P .H. brandon Hernandez M [facility] [address] [facility] [address] [place] [address] [place] [address] [phone] Social History Tobacco Use Types Packs/Day Years [...] How often do you attend yazidi or catholic services? Patien t refused 10/29/2020 [...] this encounter Miscellaneous Notes Telephone Encounter - Radha Cano - 08/19/2020 2:07 PM CDT Lab Results Component Value Date HGBA1C 6.9 (H) 08/15/2020 documented in this encounter Plan of Treatment Not on filedocumented as of this encounter Visit Diagnoses Not on filedocumented in this encounter Care Teams Superintendent Pressure Relationship Specialty Start Date End Date Lexus Fowler M.D., M.P.H. PCP - General 11/14/18 11/13/21 [address] [place] [address] documented as of this encounter
--- OUTSIDE RECORDS SUMMARY | 2022-02-03 15:05 | XMS_ITS | Encounter Summary ---
:1940 Author Organization [facility] Address [address] [place] [address] Care Team Providers Name Role Phone Lexus Fowler M.D., M.P.H. Primary Care Provider [phone] Encounter Details Date Type Department Care Team [...] How often do you attend yazidi or holiness services? Patien t refused 10/29/2020 [...] place to sleep or slept in a alf (including now)? Sex Assigned at Date Recorded Not on file documented as of this encounter Plan of Treatment Not on filedocumented as of this encounter Procedures Procedure Name Priority Date/Time Associated Diagnosis Comme nts VASCULAR IMAGE EXAM Routine 02/19/2020 2:35 PM Re sults for this CDT procedure are i n the results section. documented in this encounter Results Foot, Right-Vascular Image Exam (02/19/2020 2:35 PM CDT) Specimen (Source) Anatomical Collection Method Collection Time Re ceived Time Location / / Volume Laterality 02/19/2020 2:34 PM CDT Narrative [facility] - 02/19/2020 2:38 PM CDT This order has been created [...] on filedocumented in this encounter Care Teams Industrial Economics Teacher Relationship Specialty Start Date End Date Lexus Fowler M.D., M.P.H. PCP - General 11/14/18 11/13/21 [address] [place] [address] documented as of this encounter
--- OUTSIDE RECORDS SUMMARY | 2022-02-03 15:05 | XMS_ITS | Encounter Summary ---
:1940 Author Organization [facility] Address [address] [place] [address] Care Team Providers Name Role Phone Lexus Fowler M.D., M.P.H. Primary Care Provider Reason for Referral Outpatient (Routine) - Closed Specialty Diagnoses / Procedures Referred By Contact Refer red To Contact Family Lexus Grace M.D., Jesus Owusu M.P.H. [address] [place] [phone] Referral ID Status Reason Start Date Expiration Date Visits Requ ested Visits Authorized [id number] Closed 08/16/2020 08/16/2021 1 1 Reason for Visit Reason Comments Diabetes Outpatient (Routine) - Closed Specialty Diagnoses / Procedures Referred By Contact Refer red To Contact Family Lexus Grace M.D., Jesus Owusu M.P.H. [address] [place] [phone] Referral ID Status Reason Start Date Expiration Date Visits Requ ested Visits Authorized [id number] Closed 02/14/2020 02/13/2021 1 1 Encounter Details Date Type Department Care Team Description 08/16/2020 Office Visit Department of [facility] Lexus Fowler, Diabetes Mellitus Type 2 With Diabetic Neuropathy (HCC) (Primary Dx); Medicine, Estiven Gupta, M.P.H. Hypertension Essential Primary; [facility] [address] Diabetes Mellitus 2 Ulcer Toe (HCC); [facility] [phone] [address] [facility] SHADI HERNANDEZ [phone] Social History Tobacco Use Types Packs/Day [...] 10/29/2020 relatives? How often do you attend restorationist or buddhism services? Patien t refused 10/29/2020 Do you belong to any clubs or organizations such as Nabil borrero restorationist groups, unions, fraternal or athletic groups, or [...] Sign Reading Time Taken Comments Blood Pressure 133/64 08/16/2020 9:11 AM CDT Pulse 52 08/16/2020 9:11 AM CDT Temperature - - Respiratory Rate - - Oxygen Saturation - - Inhaled Oxygen Concentration - - Weight 93.4 kg (205 lb 14.6 oz) 08/16/2020 9:11 AM CDT Height - - Body Mass Index 28.67 09/22/2018 1:36 PM CDT documented in this encounter Patient Instructions Patient InstructionsLexus Fowler M.D., M.P.H. - 08/16/2020 9:30 AM CDT Start taking the metformin at the increased dose: - start with 2 pills in the morning, one at night (1000 mg in the morning, 500 mg at night) - After one week, increase to two pills two times per day (1000 mg twice daily) Follow up with podiatry documented in this encounter Progress Notes Lexus Fowler M.D., M.P.H. - 08/16/2020 9:30 AM CDT SUBJECTIVE CHIEF COMPLAINT / REASON FOR VISIT Vinayak Vazquez is a 80 y.o. male who presents for evaluation of Diabetes. HISTORY OF PRESENT ILLNESS Mr. 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 # diabetes type 2 Most recent A1c 6.9. Current on metformin. He is also on Crestor 10 mg daily. He is due for foot exam today. He feels things are going well, and he has no concerns today. Tolerating metformin with no side effects. # diabetic foot ulcer right great toe He has a history of diabetic foot ulcer on his right great toe. He was previously seen in wound clinic for this, however because they were overly aggressive with the paring. He has no planning to follow-up with podiatry at in the [facility], his appointment is on 08/20. He feels that the area is impro ving, though there is some overlying callus. He is not having any pain in the area. No redness or joint swelling. 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 # hypertension Managed with amlodipine 5 mg daily, hydrochlorothiazide 50 mg daily, losartan 100 mg daily. Is asymptomatic. The following portions of the patient's history were reviewed and updated as appropriate: allergies,current medications, family history, medical history, social history, surgical history and problem list. OBJECTIVE PHYSICAL EXAM Vitals: 08/16/20 0911 BP: 133/64 Pulse: (!) 52 General: Well appearing man in no apparent distress. Cardiovascular: Regular rate and rhythm, no murmurs, rubs, or gallops. Pulmonary: Clear to auscultation bilaterally, no wheezing, crackles, rales Skin: [place] and well perfused Extremities: Dorsalis pedis pulses appreciable bilaterally. Small amount of hair on the dorsal aspect of the foot bilaterally. Right great toe deformity, secondary to previous injury. Some callus present on the medial aspect of the right great toe, with old blood present in the tissues. Unsure how deep the area is given overlying callus. Monofilament testing performed, decreased sensation in toes, forefoot bilaterally. Sensation intact in heal. ASSESSMENT / PLAN #1 Diabetes Mellitus Type 2 With Diabetic Neuropathy (HCC) Assessment & Plan: Appears to be doing well. His A1c has slowly increased over time. We discussed up titrating his metformin to has tolerable dose, he is amenable to doing this. He will plan to increase his metformin to 1000 mg in the morning, 500 mg at night for 1 week. He will then take 1000 mg b.i.d.. [place] D5 for Diabetes: 1. Blood pressure (<140/90): 133/64, at goal 2. Taking a statin as recommended: On Crestor 10 mg daily, at goal 3. A1c <8%: 6.9, at goal 4. Tobacco use: No use, at goal 5. Take ASA as recommended: On a baby aspirin, at goal Will follow-up in 6 months time with repeat A1c and yearly labs. Orders: - Creatinine with Estimated GFR; Future; Expected date: 02/15/2021 (Before next visit) - Potassium; Future; Expected date: 02/15/2021 (Before next visit) - Sodium; Future; Expected date: 02/15/2021 (Before next visit) - metFORMIN (GLUCOPHAGE) 500 mg tablet; Take 2 tablets (1,000 mg total) by mouth 2 (two) times a daywith meals., Starting Wed08/16/2020, Normal - Albumin, Random, Urine; Future; Expected date: 02/15/2021 (Before next visit) - Hemoglobin A1c; Future; Expected date: 02/15/2021 (Before next visit) #2 Hypertension Essential Primary Assessment & Plan: Well managed on current regimen of amlodipine 5 mg daily, losartan 100 mg daily, [id number] mg daily. No changes necessary at this time. 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 I appreciate their cares. #4 Maintenance Health Adult Other orders - Family Medicine office visit (clinic) - Family Medicine office visit (clinic); Future; Expected date: 02/15/2021 - Friendemicuch Ultra Blue Test Strip strips; 1 test daily. for testing, Starting Wed08/16/2020, Normal documented in this encounter Miscellaneous Notes Assessment & Plan Note - Lexus Fowler M.D., M.P.H. - 08/16/2020 1:28 PM CDTAssociated Problem(s): Hypertension Essential Primary Well managed on current regimen of amlodipine 5 mg daily, losartan 100 mg daily, mg daily. No changes necessary at this time. Assessment & Plan Note - Lexus Fowler M.D., M.P.H. - 08/16/2020 7:15 AM CDTAssociated Problem(s): Diabetes Mellitus Type 2 With Diabetic Neuropathy (HCC) Appears to be doing well. His A1c has slowly increased over time. We discussed up titrating his metformin to has tolerable dose, he is amenable to doing this. He will plan to increase his metformin to 1000 mg in the morning, 500 mg at night for 1 week. He will then take 1000 mg b.i.d.. [place] D5 for Diabetes: 1. Blood pressure (<140/90): 133/64, at goal 2. Taking a statin as recommended: On Crestor 10 mg daily, at goal 3. A1c <8%: 6.9, at goal 4. Tobacco use: No use, at goal 5. Take ASA as recommended: On a baby aspirin, at goal Will follow-up in 6 months time with repeat A1c and yearly labs. documented in this encounter Plan of Treatment Scheduled Referrals Name Type Priority Associated Diagnoses Order S [facility] Medicine Outpatient Referral Routine Expec margoth: office visit 02/15/2021 (clinic) (Approximate), Expires: 08/17/2023 documented as of this encounter Results Albumin, Random, Urine (01/21/2021 8:33 AM CDT) athologist Signature Albumin, 8.1 mg/L 01/22/2021 DTL Random, U 9:50 AM CDT Comment: ----ADDITIONAL INFORMATION---- This test has been modified from the valentin hurtado's instructions. Its performance characteri stics were determined by [facility] in a manner co nsistent with [...] Laterality Urine (Urine, 01/21/2021 8:33 AM 01/22/20 21 3:14 Clean Catch) CDT PM CDT Lexus Fowler M.D., M.P.H. LAB URINE ORDERABLES Performing Organization Address City/State/ZIP Code Phon e Number [facility] - [address] [place], [place] [address] [facility] [place] [address] Laboratories-[facility] [address] (ABNORMAL) Hemoglobin A1c (01/21/2021 8:04 AM CDT) athologist Signature Hemoglobin A1c, 6.4 (H) 4.0 - 5.6 01/21/2021 DTL B % 1:33 PM CDT Comment: Hemoglobin A1c values of 5.7-6.4 percent indicate an increased risk for developing diabetes m matthew. In diabetic patients, HbA1c goals should be discussed with healthcare provider. Specimen Anatomical Collection Method Collection Time Receive d Time (Source) Location / / Volume Laterality Blood (Blood, 01/21/2021 8:04 AM 01/22/20 Venous) CDT 12:52 PM CDT Lexus Fowler M.D., M.P.H. LAB BLOOD ADD-ON Performing Organization Address City/State/ZIP Code Phon e Number [facility] [address] [place] [address] (ABNORMAL) Sodium (01/21/2021 8:04 AM CDT) P athologist Signature Sodium, P 133 (L) 135 - 145 01/21/2021 DTL mmol/L 1:25 PM CDT Specimen Anatomical Collection Method Collection Time Receive d Time (Source) Location / / Volume Laterality Blood (Blood, 01/21/2021 8:04 AM 01/22/20 8:04 Venous) CDT AM CDT Lexus Fowler M.D., M.P.H. LAB BLOOD ADD-ON Performing Organization Address City/[facility]/ZIP Code Phon e Number [facility] [address] [place] [address] [place] [address] Potassium (01/21/2021 8:04 AM CDT) P athologist Signature Potassium, P 4.9 3.6 - 5.2 01/21/2021 DTL mmol/L 1:25 PM CDT Specimen Anatomical Collection Method Collection Time Receive d Time (Source) Location / / Volume Laterality Blood (Blood, 01/21/2021 8:04 AM 01/22/20 8:04 Venous) CDT AM CDT Lexus Fowler M.D., M.P.H. LAB BLOOD ADD-ON Performing Organization Address City/State/ZIP Code Phon e Number [facility] - [address] [place] [address] [facility] [place] [address] Laboratories-[address] Creatinine with Estimated GFR (01/21/2021 8:04 AM CDT) P athologist Signature Creatinine 1.13 0.74 - 01/21/2021 DTL 1.35 mg/dL 1:25 PM CDT eGFR-Black/Afric 70 >=60 01/21/2021 DTL an Martiniquais mL/min/BSA 1:25 PM CDT Comment: ----ADDITIONAL INFORMATION---- [...] Address City/State/ZIP Code Phon e Number [facility] - [address] [address] [place], Located [facility] documented in this encounter Visit Diagnoses Diagnosis Diabetes Mellitus Type 2 With Diabetic N europathy (HCC) - Primary Hypertension Essential Primary Diabetes Mellitus 2 Ulcer Toe (HCC) Maintenance Health Adult documented in this encounter Care Teams Will Call Order Clerk Relationship Specialty Start Date End Date Lexus Fowler M.D., M.P.H. PCP - General 11/14/18 11/13/21 [address] [place] [address] documented as of this encounter
--- OUTSIDE RECORDS SUMMARY | 2022-02-03 15:05 | XMS_ITS | Encounter Summary ---
:1940 Author Organization [facility] Address [address] [place] [address] Care Team Providers Name Role Phone Lexus Fowler M.D., M.P.H. Primary Care Provider [phone] Encounter Details Date Type Department Care Team Description 02/06/2020 Ancillary Procedure Department of Vascular Social History [...] 10/29/2020 relatives? How often do you attend jainism or hoahaoism services? Patien t refused 10/29/2020 Do you belong to any clubs or organizations such as Nabil borrero jainism groups, unions, fraternal or athletic groups, or [...] or slept in a fci (including now)? Sex Assigned at Date Recorded Not on file documented as of this encounter Plan of Treatment Not on filedocumented as of this encounter Procedures Procedure Name Priority Date/Time Associated Diagnosis Comme nts VASCULAR IMAGE EXAM Routine 02/06/2020 10:04 AM R esults for this CDT procedure are i n the results section. documented in this encounter Results Foot-Vascular Image Exam (02/06/2020 10:04 AM CDT) Specimen (Source) Anatomical Collection Method Collection Time Re ceived Time Location / / Volume Laterality 02/06/2020 10:01 AM CDT Narrative [facility] - 02/06/2020 10:04 AM CDT This order has been created [...] on filedocumented in this encounter Care Teams Type Cutter Relationship Specialty Start Date End Date Lexus Fowler M.D., M.P.H. PCP - General 11/14/18 11/13/21 [address] [place] [address] documented as of this encounter
--- OUTSIDE RECORDS SUMMARY | 2022-02-03 15:06 | XMS_ITS | Encounter Summary ---
:1940 Author Organization [facility] Address [address] [place] [address] Care Team Providers Name Role Phone Lexus Fowler M.D., M.P.H. Primary Care Provider [phone] Encounter Details Date Type Department Care Team Description 10/06/2019 Ancillary Procedure Department of Vascular Social History [...] 10/29/2020 relatives? How often do you attend anglican or orthodoxy services? Patien t refused 10/29/2020 Do you belong to any clubs or organizations such as Nabil borrero anglican groups, unions, fraternal or athletic groups, or [...] Diagnosis Comme nts VASCULAR IMAGE EXAM Routine 10/06/2019 10:20 AM R esults for this CDT procedure are i n the results section. documented in this encounter Results Foot, Right-Vascular Image Exam (10/06/2019 10:20 AM CDT) Specimen (Source) Anatomical Collection Method Collection Time Re ceived Time Location / / Volume Laterality 10/06/2019 10:20 AM CDT Narrative [facility]IM[facility] - 10/06/2019 10:24 AM CDT This order has been created [...] on filedocumented in this encounter Care Teams Paediatric Physiotherapist Relationship Specialty Start Date End Date Lexus Fowler M.D., M.P.H. PCP - General 11/14/18 11/13/21 [address] [place] [address] documented as of this encounter
--- OUTSIDE RECORDS SUMMARY | 2022-02-03 15:06 | XMS_ITS | Encounter Summary ---
:1940 Author Organization [facility] Address [address] [place] [address] Care Team Providers Name Role Phone Lexus Fowler M.D., M.P.H. Primary Care Provider Encounter Details Date Type Department Care Team Description 12/04/2019 Ancillary Procedure Department of Vascular Social History [...] How often do you attend restorationist or zoroastrianism services? Patien t refused 10/29/2020 Do you [...] Diagnosis Comme nts VASCULAR IMAGE EXAM Routine 12/04/2019 9:05 AM Re sults for this CDT procedure are i n the results section. documented in this encounter Results Foot, Right-Vascular Image Exam (12/04/2019 9:05 AM CDT) Specimen (Source) Anatomical Collection Method Collection Time Re ceived Time Location / / Volume Laterality 12/04/2019 9:02 AM CDT Narrative [facility] - 12/04/2019 9:05 AM CDT This order has been created and auto-finalized to support the import of images acquired without order. The clini aplmer documentation to support these images can be found on the encounter alize t produced images. Provider Not In System IMG NON RAD IMAGING PROCEDUR ES Performing Organization Address City/State/ZIP Code Phon e Number [facility] NA documented in this encounter Visit Diagnoses Not on filedocumented in this encounter Care Teams Development Vice President Relationship Specialty Start Date End Date Lexus Fowler M.D., M.P.H. PCP - General 11/14/18 11/13/21 [address] [place] [address] documented as of this encounter
--- OUTSIDE RECORDS SUMMARY | 2022-02-03 15:06 | XMS_ITS | Encounter Summary ---
:1940 Author Organization [facility] Address [address] [place] [address] Care Team Providers Name Role Phone Lexus Fowler M.D., M.P.H. Primary Care Provider [phone] Encounter Details Date Type Department Care Team [...] How often do you attend gnosticism or bahai services? Patien t refused 10/29/2020 Do you [...] place to sleep or slept in a assisted (including now)? Sex Assigned at Date Recorded Not on file documented as of this encounter Plan of Treatment Not on filedocumented as of this encounter Procedures Procedure Name Priority Date/Time Associated Diagnosis Comme nts VASCULAR IMAGE EXAM Routine 10/06/2019 9:48 AM Re sults for this CDT procedure are i n the results section. documented in this encounter Results Legs-Vascular Image Exam (10/06/2019 9:48 AM CDT) Specimen (Source) Anatomical Collection Method Collection Time Re ceived Time Location / / Volume Laterality 10/06/2019 9:46 AM CDT Narrative [facility] - 10/06/2019 9:48 AM CDT This order has been created [...] on filedocumented in this encounter Care Teams Customer Service Driver Relationship Specialty Start Date End Date Lexus Fowler M.D., M.P.H. PCP - General 11/14/18 11/13/21 [address] [place] [address] documented as of this encounter
--- OUTSIDE RECORDS SUMMARY | 2022-02-03 15:06 | XMS_ITS | Encounter Summary ---
:1940 Author Organization [facility] Address [address] [place] [address] Care Team Providers Name Role Phone Lexus Fowler M.D., M.P.H. 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 [address] [place] [phone] Referral ID Status Reason Start Date Expiration Date Visits Requ ested Visits Authorized [id number] Closed 10/30/2019 10/29/2020 1 1 Reason for Visit Outpatient (Routine) - Closed Specialty Diagnoses / Procedures Referred By Contact Refer red To Contact Vascular Medicine Emelyn Diamond APRN, [facility] C.N.PClarence, D.N.P. [address] [place] [phone] Referral ID Status Reason Start Date Expiration Date Visits Requ ested Visits Authorized [id number] Closed 10/06/2019 10/05/2020 1 1 Encounter Details Date Type Department Care Team Description 10/30/2019 Office Visit Department of Bette Man Diabetes Mellitus 2 Ulcer Toe (HCC) (Primary Dx); Vascular Medicine in [place], ALEN, Kei, Anna raoul Mellitus Type 2 With Diabetic Neuropathy (HCC); [place], [place] Elian Cellulitis Foot Right [address] [place] [phone] [phone] Social History Tobacco Use Types Packs/Day Years [...] How often do you attend islam or cheondoism services? Patien t refused 10/29/2020 Do you [...] place to sleep or slept in a halfway (including now)? Sex Assigned at Date Recorded Not on file documented as of this encounter Last Filed Vital Signs Vital Sign Reading Time Taken Comments Blood Pressure - - Pulse - - Temperature - - Respiratory Rate - - Oxygen Saturation - - Inhaled Oxygen Concentration - - Weight 94 kg (207 lb 3.7 oz) 10/30/2019 2:08 PM CDT Height - - Body Mass Index 28.85 09/22/2018 1:36 PM CDT documented in this encounter Patient Instructions Patient InstructionsSamaria Pineda M - 10/30/2019 2:30 PM CDT Wound Location: Right great toe 1. Wash hands. 2. Remove old dressings. 3. Gently cleanse ulcer base with normal saline and rough gauze in a circular motion. 4. Apply Iodosorb/Hydrogel (50:50) mixture to ulcer base (There will be some staining of the skin from the Iodosorb). 5. Cover with soft dry gauze, secure with cover roll stretch tape . 6. Change dressing once day. Moisturize your legs at least once daily with a non-scented lotion (ex: Vanicream, Eucerin, Cerava). Inserts should be replaced on a routine basis (2-3 times per year). Discontinue use of bacitracin. Additional Instructions: It is recommended to add [...] after showering. Activity ?? Stay off foot as much as possible. Footwear ?? Wear darco shoe on your right foot. When transitioning into new shoes, follow below [...] through 14 - You may wear shoes egg worker in your house only. Beyond day 14 - If no problems have developed, you may begin wearing them outside the house. If you have any wound care questions or concerns please contact the Vascular Center at [phone]. If you need to cancel, reschedule, or schedule a wound care appointment please call [phone]. Provider Signature Bette Juarez APRN, C.N.Letha., M.S.N. documented in this encounter Progress Notes Bette Juarez APRN, C.N.P., M.S.N. - 10/30/2019 2:30 PM CDT REFERRAL SOURCE Emelyn Diamond APRN, C.N.Letha., D.N.P. [address] [place] [phone] SUBJECTIVE CHIEF COMPLAINT / REASON FOR VISIT Re-evaluation of right distal 1st toe ulcer. Patient seen at the [facility] wound care clinic. HISTORY OF PRESENT ILLNESS Mr. Vazquez is a 79 y.o. male that I am seeing today for re-evaluation of her right distal 1st toe ulcer. He was seen in consultation on October 06, 2019. At that time it was recommended that he utilize daily 75:25 Iodosorb and Hydrogel covered with a soft gauze secondary dressing. He was given bilateral Darco shoes at that visit as well. On today's visit, he is accompanied by his who performs the daily dressing changes. He is wearing the Darco shoes. Together they confirm that he denies significant pain. No drainage. No fever, chills, night sweats or other constitutional complaints of an infection. They confirm that this is his current wound care regimen. Further, they note that he is due for new diabetic footwear and custom orthotics. His past medical history is significant for hypertension, hyperlipidemia, type 2 diabetes mellitus and neuropathy. He is a nonsmoker. He has had chronic difficulty with his left toe since his lawn mowing accident in 1970. The following portions of the patient's history were reviewed and updated as appropriate: allergies,current medications, family history, medical history, social history, surgical history, psychiatric history, substance abuse history, problem list, labs, diagnostics tests. I reviewed the pertinent clinical notes in the electronic health record. REVIEW OF SYSTEMS 14 systems reviewed. Pertinent positives and pertinent negatives are documented in the history of present illness. OBJECTIVE VITALS Wt 94 kg BMI 28.85 kg/m?? PHYSICAL EXAMINATION Body mass index is 28.85 kg/m??. Physical Exam General: 79-year-old male in no acute distress Vessels: Palpable right dorsalis pedis pulse. Extremities: No significant edema noted. Skin: Upon inspection, there is a significant amount of nonviable tissue present covering an ulcer on the patient's right distal great toe. After obtaining patient consent and the application of 4% topical lidocaine liquid, meticulous debridement of the skin was performed by myself and Annie Florez RN. He tolerated debridement without any bleeding or incident. After debridement, the wound bed base is 100% granulation tissue with slight maceration present in the periwound area. The callus was successfully reduced in the periwound area. There is no visible or palpable structures. No drainage or odor noted during debridement. The surrounding tissue is dry and intact. No concerns of a local soft tissue infection. Mental: Pleasant. Alert and oriented x3 Gait: Ambulatory DIAGNOSTIC REVIEW All labs and diagnostic studies were reviewed. MRI dated October 10, 2019 is negative for evidence of osteomyelitis. ASSESSMENT / PLAN #1 Diabetes Mellitus 2 Ulcer Toe (HCC) #2 Diabetes Mellitus Type 2 With Diabetic Neuropathy (HCC) #3 Cellulitis Foot Right I have reviewed my assessment findings and my treatment plan in detail with and his who has accompanied him for re-evaluation of a right distal great toe ulceration. Since his last visit, his wound remained stable and measurements are slightly improving. Therefore, I recommend we continue with daily 50:50 Iodosorb and Hydrogel covered with a thin layer of soft gauze and secured in place with Cover Roll stretch. He should not soak his wounds. The wound should be cleansed daily with normal saline and rough gauze to aid in mechanical debridement. Offloading is of paramount importance. I recommend he continue to utilize the Darco shoe as he continues to heal. I discussed with him that it is important to pursue obtaining new shoes and orthotics so that we can get his orthotics optimized for offloading by initiating a motion analysis study. He will certainly let us know once he has obtained the footwear and orthotics. In the meantime, I have asked that he return to the wound care clinic in approximately 1 month for ongoing assessment and re-evaluation. If he has any questions or concerns that arise in the interim, they can feel free to contact the Wound Care Clinic and we would be happy to assist. INFORMED CONSENT: ??Discussed the risks, benefits, alternatives, and the necessity of other members of the healthcare team participating in the procedure. ??All questions answered and consent given. Please see flow sheets and photographs for additional information. PATIENT EDUCATION Ready to learn, no apparent learning barriers were identified; learning preferences include listening. Explained diagnosis and treatment plan; patient expressed understanding of the content Bette Juarez APRN, C.NNaty., M.S.N. documented in this encounter Plan of Treatment Scheduled Referrals Name Type Priority Associated Diagnoses Order S [facility] Vascular Medicine Outpatient Referral Routine Diabetes Mellitu s 2 Expected: office visit Ulcer Toe (HCC) 11/29/2019 (clinic) Diabetes Mellitus (Approxima te), Type 2 With Diabetic Expires : Neuropathy (HCC) 10/29/2022 Cellulitis Foot Right documented as of this encounter Visit Diagnoses Diagnosis Diabetes Mellitus 2 Ulcer Toe (HCC) - Pr imary Diabetes Mellitus Type 2 With Diabetic N europathy (HCC) Cellulitis Foot Right documented in this encounter Care Teams Ship Erector Relationship Specialty Start Date End Date Lexus Fowler M.D., M.P.H. PCP - General 11/14/18 11/13/21 [address] [place] [address] documented as of this encounter
--- OUTSIDE RECORDS SUMMARY | 2022-02-03 15:06 | XMS_ITS | Encounter Summary ---
:1940 Author Organization [facility] Address [address] [place] [address] Care Team Providers Name Role Phone Lexus Fowler M.D., M.P.H. Primary Care Provider [phone] Reason for Visit Reason Comments ALETHEA Nurse Line Encounter Details Date Type Department Care Team Description 12/22/2019 Clinical Communication Department of Lexus Fowler Nurse Joan Family MedicineMaikol M.D., M.P.H. [facility] [address] [facility] [phone] [address] [facility] [phone] [place], [place] (Work) [phone] Social History Tobacco Use Types Packs/Day Years [...] 10/29/2020 relatives? How often do you attend episcopal or christian services? Patien t refused 10/29/2020 Do you belong to any clubs or organizations such as Nabil borrero episcopal groups, unions, fraternal or athletic groups, or [...] this encounter Miscellaneous Notes Telephone Encounter - Gladis Brown - 12/22/2019 12:14 PM CDT In the past 30 days have you had a swab for COVID that tested positive? NO documented in this encounter Plan of Treatment Not on filedocumented as of this encounter Visit Diagnoses Not on filedocumented in this encounter Care Teams Spd Manager Relationship Specialty Start Date End Date Lexus Fowler M.D., M.P.H. PCP - General 11/14/18 11/13/21 [address] [place] [address] documented as of this encounter
--- OUTSIDE RECORDS SUMMARY | 2022-02-03 15:06 | XMS_ITS | Encounter Summary ---
:1940 Author Organization [facility] Address [address] [place] [address] Care Team Providers Name Role Phone Lexus Fowler M.D., M.P.H. Primary Care Provider [phone] Reason for Referral MRI/CAT/PET Scan (Routine) - Closed Specialty Diagnoses / Procedures Referred By Contact Refer red To Contact Radiology Diagnoses Diabetes Mellitus 2 Ulcer Toe [facility]CC) [facility] Procedures [facility] Foot Right without IV Contrast C.N.P., D.N.P. [address] [place] [phone] Referral ID Status Reason Start Date Expiration Date Visits Requ ested Visits Authorized [id number] Closed 10/06/2019 10/05/2020 1 1 Reason for Visit MRI/CAT/PET Scan (Routine) - Closed Specialty Diagnoses / Procedures Referred By Contact Refer red To Contact Radiology Diagnoses Diabetes Mellitus 2 Ulcer Toe (HCC) [facility] Procedures MR Foot Right without IV Contrast C.N.P., D.N.P. [address] [place] [phone] Referral ID Status Reason Start Date Expiration Date Visits Requ ested Visits Authorized [id number] Closed 10/06/2019 10/05/2020 1 1 Encounter Details Date Type Department Care Team Description 10/10/2019 Hospital Encounter Department of Lobo, Emelyn Diabet es Mellitus 2 Radiology, Viraj D, CORPORATE TRAVEL CONSULTANT, Ulcer Toe ( HCC) Building, in C.N.P., D.N.P. [place], [place] 200 [facility] 200 [place] [phone] Social History Tobacco Use Types Packs/Day Years [...] 10/29/2020 relatives? How often do you attend denominational or methodist services? Patien t refused 10/29/2020 Do you belong to any clubs or organizations such as Nabil borrero denominational groups, unions, fraternal or athletic groups, or [...] Sig Dispensed Refills Start Date End Date ascorbic acid, vitamin C, Take 1 tablet [...] by 0 009 VITAMINS ORAL) mouth daily. vitamin E 400 unit capsule Take 1 capsule by 0 mouth daily. cefadroxil (DURICEF) 500 mg Take 1 capsule 20 capsule 0 09/1510/16/2019 capsule (500 mg total) by mouth 2 (two) times a day for 10 days. amLODIPine (NORVASC) 5 mg Take 1 tablet (5 90 tablet 3 08/201801/15/2020 tabletIndications: mg total) by Hypertension Essential mouth daily. Primary B-COMPLEX WITH VITAMIN C Take 1 tablet by 0 09/1602/14/2020 (VITAMIN B COMPLEX WITH C mouth daily. ORAL) docosahexaenoic acid/epa Take 1 capsule by 0 07/06/200902/14/2020 (FISH OIL ORAL) mouth. hydroCHLOROthiazide Take 1 [...] (two) With Diabetic Neuropathy times a day. ([facility]) Catapult ULTRA BLUE TEST daily. for 3 01/07/2018 08/16/2020 STRIP strips testing rosuvastatin (CRESTOR) 10 Take 1 tablet (10 100 tablet 3 11/201902/14/2020 mg tabletIndications: mg total) by Hyperlipidemia mouth daily. documented as of this encounter Plan of Treatment Not on filedocumented as of this encounter Procedures Procedure Name Priority Date/Time Associated Comments Diagnosis MR FOOT RIGHT RAD - Routine 10/10/2019 9:54 Diabetes Mellitus Resul ts for this WITHOUT IV (most inpatients AM CDT 2 Ulcer Toe (HCC) proced ure are in CONTRAST and all the results outpatients) section. 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 No eliu dence of associated osteomyelitis. Narrative 10/10/2019 10:17 AM CDT EXAM: ??MR FOOT RIGHT WITHOUT IV CONTRAST COMPARISON: ??10/02/2019 radiographs. 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 There is deep soft tissue ulceration about the medial aspec t of the distal great toe. However, there is preserved fatty T1 marrow signa l within the proximal and distal phalanges, with no evidence of associate d osteomyelitis. There is increased T2 signal within the shaft of the proximal phalanx (series 7, image 27), without corresponding marrow replacement on T1-w eighted images, consistent with reactive bone marrow edema. Scattered soft tissue edema about the great toe. Mild degenerative changes throughout the remainder of the forefoot. Diffuse subcutaneous and intramuscular edema. At rophy and fatty replacement of the intrinsic musculature of the foot. Remai nder negative. Procedure Note Slick Morgan M.D. - 10/10/2019Form atting of this note might be different from the original. EXAM: MR FOOT RIGHT WITHOUT IV CONTRAST COMPARISON: 10/02/2019 radiographs. 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 There is deep soft tissue ulceration about the medial aspec t of the distal great toe. However, there is preserved fatty T1 marrow signa l within the proximal and distal phalanges, with no evidence of associate d osteomyelitis. There is increased T2 signal within the shaft of the proximal phalanx (series 7, image 27), without corresponding marrow replacement on T1-w eighted images, consistent with reactive bone marrow edema. Scattered soft tissue edema about the great toe. Mild degenerative changes throughout the remainder of the forefoot. Diffuse subcutaneous and intramuscular edema. At rophy and fatty replacement of the intrinsic musculature of the foot. Remai nder negative. 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 No eliu dence of associated osteomyelitis. Emelyn Diamond APRN, C.N.P., D.N.P. IMG MRI PROCEDURE S documented in this encounter Visit Diagnoses Diagnosis Diabetes Mellitus 2 Ulcer Toe (HCC) documented in this encounter Care Teams Insulation Extruder Operator Relationship Specialty Start Date End Date Lxeus Fowler M.D., M.P.H. PCP - General 11/14/18 11/13/21 [address] [place] [address] documented as of this encounter
--- OUTSIDE RECORDS SUMMARY | 2022-02-03 15:06 | XMS_ITS | Encounter Summary ---
:1940 Author Organization [facility] Address [address] [place] [address] Care Team Providers Name Role Phone Lexus Fowler M.D., M.P.H. Primary Care Provider [phone] Encounter Details Date Type Department Care Team Description 10/30/2019 Ancillary Procedure Department of Vascular Social History [...] 10/29/2020 relatives? How often do you attend worship or mosque services? Patien t refused 10/29/2020 Do you belong to any clubs or organizations such as Nabil borrero worship groups, unions, fraternal or athletic groups, or [...] place to sleep or slept in a custodial (including now)? Sex Assigned at Date Recorded Not on file documented as of this encounter Plan of Treatment Not on filedocumented as of this encounter Procedures Procedure Name Priority Date/Time Associated Diagnosis Comme nts VASCULAR IMAGE EXAM Routine 10/30/2019 2:39 PM Re sults for this CDT procedure are i n the results section. documented in this encounter Results Foot, Right-Vascular Image Exam (10/30/2019 2:39 PM CDT) Specimen (Source) Anatomical Collection Method Collection Time Re ceived Time Location / / Volume Laterality 10/30/2019 2:37 PM CDT Narrative [facility] - 10/30/2019 2:39 PM CDT This order has been created [...] on filedocumented in this encounter Care Teams Supervisor Vegetable Farming Relationship Specialty Start Date End Date Lexus Fowler M.D., M.P.H. PCP - General 11/14/18 11/13/21 [address] [place] [address] documented as of this encounter
--- OUTSIDE RECORDS SUMMARY | 2022-02-03 15:06 | XMS_ITS | Encounter Summary ---
:1940 Author Organization [facility] Address [address] [place] [address] Care Team Providers Name Role Phone Lexus Fowler M.D., M.P.H. Primary Care Provider [phone] Encounter Details Date Type Department Care Team Description 10/06/2019 Hospital Encounter Department of Emelyn Diamond es Mellitus 2 Laboratory Medicine D, QUALITY CONTROL ASSESSOR, Ulcer To e (HCC) and Pathology, C.N.P., D.N.P. [facility], in [address] [place] [address] [place] [address] [place], [place] [phone] (Work) [phone] Social History Tobacco Use Types Packs/Day Years [...] 10/29/2020 relatives? How often do you attend alevism or hindu services? Patien t refused 10/29/2020 Do you belong to any clubs or organizations such as Nabil borrero alevism groups, unions, fraternal or athletic groups, or [...] Take 1 tablet (5 90 tablet 3 11/08/201801/15/2020 tabletIndications: mg total) by Hypertension Essential mouth [...] (two) With Diabetic Neuropathy times a day. (HCC) ONETOUCH ULTRA BLUE TEST daily. for 3 01/07/2018 08/16/2020 STRIP strips testing rosuvastatin (CRESTOR) 10 Take 1 tablet (10 100 tablet 3 11/201902/14/2020 mg tabletIndications: mg total) by Hyperlipidemia mouth daily. documented as of this encounter Plan of Treatment Not on filedocumented as of this encounter Procedures Procedure Name Priority Date/Time Associated Diagnosis Comme nts CBC WITHOUT Routine 10/06/2019 10:54 AM Diabetes Mellitus 2 R esults for this DIFFERENTIAL, B CDT Ulcer Toe (HCC) procedure are in the results section. C-REACTIVE PROTEIN Routine 10/06/2019 10:54 AM Diabetes Mellit us 2 Results for this (CRP), S/P CDT Ulcer Toe (HCC) procedure ar e in the results section. documented in this encounter Results (ABNORMAL) CRP (C-Reactive Protein) (10/06/2019 10:54 AM CDT) P athologist Signature C-Reactive 14.4 (H) <=8.0 mg/L 10/06/2019 DTL Protein (CRP), 1:10 PM CDT S Specimen Anatomical Collection Method Collection Time Receive d Time (Source) Location / / Volume Laterality Blood (Blood, 10/06/2019 10:54 10/06/2019 Venous) AM CDT 12:48 PM CDT Stevenson Cassidy APRNN.P., D.N.P. LAB BLOOD ADD-ON Performing Organization Address City/[facility] Phon e Number [facility] - 200 [place], [place] [address] [facility] [place] [address] CBC without Differential (10/06/2019 10:54 AM CDT) P athologist Signature Hemoglobin 14.1 13.2 - 10/06/2019 DTL 16.6 g/dL 12:04 PM CDT Hematocrit 42.2 38.3 - 10/06/2019 DTL 48.6 % 12:04 PM CDT Erythrocytes 4.86 4.35 - 10/06/2019 DTL 5.65 12:04 PM CDT x10(12)/L MCV 86.8 78.2 - 10/06/2019 DTL 97.9 fL 12:04 PM CDT RBC Distrib Width 13.6 11.8 - 10/06/2019 DTL 14.5 % 12:04 PM CDT Platelet Count 249 135 - 317 10/06/2019 DTL x10(9)/L 12:04 PM CDT Leukocytes 7.2 3.4 - 9.6 10/06/2019 DTL x10(9)/L 12:04 PM CDT Specimen Anatomical Collection Method Collection Time Receive d Time (Source) Location / / Volume Laterality Blood (Blood, 10/06/2019 10:54 10/06/2019 Venous) AM CDT 11:51 AM CDT Stevenson Cassidy APRNN.P., D.N.P. LAB BLOOD ADD-ON Performing Organization Address City/[facility] Phon e Number [facility] - 200 [place], [place] [address] [facility] [place] [address] documented in this encounter Visit Diagnoses Diagnosis Diabetes Mellitus 2 Ulcer Toe (HCC) documented in this encounter Care Teams Supervisor Stage Carpentry Relationship Specialty Start Date End Date Lexus Fowler M.D., M.P.H. PCP - General 11/14/18 11/13/[address] [place] [phone] documented as of this encounter
--- OUTSIDE RECORDS SUMMARY | 2022-02-03 15:06 | XMS_ITS | Encounter Summary ---
:1940 Author Organization [facility] Address [address] [place] [address] Care Team Providers Name Role Phone Lexus Fowler M.D., M.P.H. Primary Care Provider [phone] Encounter Details Date Type Department Care Team [...] 10/29/2020 relatives? How often do you attend mormon or orthodoxy services? Patien t refused 10/29/2020 Do you belong to any clubs or organizations such as Nabil borrero mormon groups, unions, fraternal or athletic groups, or [...] place to sleep or slept in a longterm (including now)? Sex Assigned at Date Recorded Not on file documented as of this encounter Plan of Treatment Not on filedocumented as of this encounter Procedures Procedure Name Priority Date/Time Associated Diagnosis Comme nts VASCULAR IMAGE EXAM Routine 10/06/2019 9:48 AM Re sults for this CDT procedure are i n the results section. documented in this encounter Results Foot, Right-Vascular Image Exam (10/06/2019 9:48 AM CDT) Specimen [...] on filedocumented in this encounter Care Teams German Professor Relationship Specialty Start Date End Date Lexus Fowler M.D., M.P.H. PCP - General 11/14/18 11/13/21 [address] [place] [address] documented as of this encounter
--- OUTSIDE RECORDS SUMMARY | 2022-02-03 15:06 | XMS_ITS | Encounter Summary ---
:1940 Author Organization [facility] Address [address] [place] [address] Care Team Providers Name Role Phone Lexus Fowler M.D., M.P.H. 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 200 [place] [address] Referral ID Status Reason Start Date Expiration Date Visits Requ ested Visits Authorized [id number] Closed 11/15/2019 11/14/2020 1 1 Reason for Visit Outpatient (Routine) - Closed Specialty Diagnoses / Procedures Referred By Contact Refer red To Contact Orthopedic Surgery Roslyn Veliz APRN, [facility] C.N.P. [address] [place] [phone] Referral ID Status Reason Start Date Expiration Date Visits Requ ested Visits Authorized [id number] Closed 10/02/2019 10/01/2020 1 1 Encounter Details Date Type Department Care Team Description 11/15/2019 Procedure visit Department of Belkis Richter Onychomy cosis (Primary Dx); Orthopedic Surgery ALEN Lozano, C.N.P. Callus Ruby Foot; in [place], Dystrophic Toe nail; [place] Diabetes Mellitus Type 2 Wit h Diabetic Polyneuropathy (HCC); [address] Diabetes Mellitus 2 Ulcer To e (HCC) [place] [address] Social History Tobacco Use Types Packs/Day Years [...] How often do you attend hindu or confucianist services? Patien t refused 10/29/2020 Do you [...] Progress Notes Belkis Richter, ALEN, C.N.P. - 11/15/2019 8:00 AM CDT SUBJECTIVE Pain reported: CHIEF [...] is followed in Wound Clinic, last seen November 01. He follows in Podiatry for care of hypertrophied toenails and callus. He currently notes no difficulty with toenail care, and continues dressings to the right great toe with Iodosorb and Hydrogel as advised. He denies pain, but acknowledges symptoms of numbness. There is no history of foot surgery. He last saw Dr. Lexus Fowler and Dr. Raul Dunlap ([facility]) September 28, 2019 for active care management. [...] diffuse hyperkeratotic buildup L1 submetatarsal head and hemosiderin deposit noted underneath, diffuse callus R1 submetatarsal head and R5 submetatarsal head. He also has callus overlying part of the ulcer right great toe distal tip medially. There is no sign of infection. The tissue is granulating well. Onychomycosis involving R1 as evidenced by long, thickened dystrophic toenails with yellow discoloration and crumbling and subungal involvement. Remaining toenails are long, thickened, and dystrophic. Vessels: Dorsalis pedis pulses intact. 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 Nail folds were gently curetted. Skin intact. A number 15 blade was used to pare 3 calluses, then the forefoot calluses were also smoothed with electric sanding bur. Postprocedure pain 0. His right great toe ulcer was dressed with Xeroform gauze since I do not have Iodosorb and Hydrogel at my disposal. I emphasized the importance of daily foot inspection, limiting ambulation, and application of foot cream daily to aid healing and moisturization of the skin. He apparently was previously recommended to use a Darco shoe, but instead has transition to his regular shoes with orthotic inserts and he cut a hole out to make room for his toe ulcer. He is due for updated orthotics and diabetic shoe prescription, and this will need to be provided after his ulcer has healed. He will be following up later this month with Wound Clinic. Patient was provided my business card should concerns arise prior to return visit 2 months. Discussed the risks, benefits, alternatives, and the necessity of other members of the health care team participating in the procedure. All questions answered and consent given. Procedural pause conducted to verify: correct patient identity, procedure to be performed, and as applicable, correct side and site, correct patient position, and availability of special equipment or special requirements. Ready to learn, no apparent learning barriers were identified; learning preferences including listening. Explained diagnosis and treatment plan; patient expressed understanding of the content. The risks, benefits, and alternatives to the [...] Name Type Priority Associated Diagnoses Order S [facility] Orthopedic Surgery Outpatient Referral Routine Onychomyc osis Expected: office visit Callus Ruby Foot 01/16/2020 (clinic) Dystrophic Toena il (Approximate), Diabetes Mellitus Type Expir es: 2 With Diabetic 11/14/2022 Polyneuropathy ( HCC) Diabetes Mellitus 2 Ulcer Toe (HCC) documented as of this encounter Visit Diagnoses Diagnosis Onychomycosis - Primary Callus Ruby Foot Dystrophic Toenail Diabetes Mellitus Type 2 With Diabetic P olyneuropathy (HCC) Diabetes Mellitus 2 Ulcer Toe (HCC) documented in this encounter Care Teams Frozen Foods Manager Relationship Specialty Start Date End Date Lexus Fowler M.D., M.P.H. PCP - General 11/14/18 11/13/21 [address] [place] [address] documented as of this encounter
--- OUTSIDE RECORDS SUMMARY | 2022-02-03 15:06 | XMS_ITS | Encounter Summary ---
:[address] [facility] Address [address] [place] [address] Care Team Providers Name Role Phone Lexus Fowler M.D., M.P.H. Primary Care Provider [phone] Reason for Visit Reason Comments COVID Inquiry Encounter Details Date Type Department Care Team Description 11/16/2019 Clinical Communication Department of Lexus Fowler Family MedicineMaikol M.D., M.P.H. [facility] [address] [facility] [address] 411 [facility] [phone] [place], [place] (Work) [address] [phone] Social History Tobacco Use Types Packs/Day Years [...] How often do you attend yazidi or zoroastrianism services? Patien t refused 10/29/2020 [...] this encounter Miscellaneous Notes Telephone Encounter - Felecia Mohan - 11/16/2019 8:42 AM CDT ([facility] and [place] [facility] locations only: If the patient is not having symptoms and is requesting COVID-19 Nasal Swab testing only, use the process listed in the COVID-19 Patient Requesting COVID PCR Test OTG COVID-19 [place] Patient Requesting COVID PCR Test). In the past 30 days have you had a swab for COVID that tested positive? no Route reply to: [facility] Scheduling Scheduling Contact Number: [phone] documented in this encounter Plan of Treatment Not on filedocumented as of this encounter Visit Diagnoses Not on filedocumented in this encounter Care Teams Contact Assembler Relationship Specialty Start Date End Date Lexus Fowler M.D., M.P.H. PCP - General 11/14/18 11/13/[address] [place] [address] documented as of this encounter
--- OUTSIDE RECORDS SUMMARY | 2022-02-03 15:06 | XMS_ITS | Encounter Summary ---
:1940 Author Organization [facility] Address [address] [place] [address] Care Team Providers Name Role Phone Lexus Fowler M.D., M.P.H. Primary Care Provider [phone] Encounter Details Date Type Department Care Team [...] 10/29/2020 relatives? How often do you attend jain or evangelical services? Patien t refused 10/29/2020 Do you belong to any clubs or organizations such as Nabil borrero jain groups, unions, fraternal or athletic groups, or [...] place to sleep or slept in a half-way (including now)? Sex Assigned at Date Recorded Not on file documented as of this encounter Plan of Treatment Not on filedocumented as of this encounter Procedures Procedure Name Priority Date/Time Associated Diagnosis Comme nts VASCULAR IMAGE EXAM Routine 12/04/2019 8:50 AM Re sults for this CDT procedure are i n the results section. documented in this encounter Results Foot, Right-Vascular Image Exam (12/04/2019 8:50 AM CDT) Specimen (Source) Anatomical Collection Method Collection Time Re ceived Time Location / / Volume Laterality 12/04/2019 8:48 AM CDT Narrative [facility] - 12/04/2019 8:51 AM CDT This order has been created [...] on filedocumented in this encounter Care Teams Hospice Superintendent Relationship Specialty Start Date End Date Lexus Fowler M.D., M.P.H. PCP - General 11/14/18 11/13/21 [address] [place] [address] documented as of this encounter
--- OUTSIDE RECORDS SUMMARY | 2022-02-03 15:06 | XMS_ITS | Encounter Summary ---
:1940 Author Organization [facility] Address [address] [place] [address] Care Team Providers Name Role Phone Lexus Fowler M.D., M.P.H. Primary Care Provider [phone] Encounter Details Date Type Department Care Team [...] 10/29/2020 relatives? How often do you attend muslim or worship services? Patien t refused 10/29/2020 Do you belong to any clubs or organizations such as Nabil borrero muslim groups, unions, fraternal or athletic groups, or [...] Comme nts VASCULAR IMAGE EXAM Routine 10/30/2019 2:15 PM Re sults for this CDT procedure are i n the results section. documented in this encounter Results Foot, Right-Vascular Image Exam (10/30/2019 2:15 PM CDT) Specimen (Source) Anatomical Collection Method Collection Time Re ceived Time Location / / Volume Laterality 10/30/2019 2:13 PM CDT Narrative [facility] - 10/30/2019 2:16 PM CDT This order has been created [...] on filedocumented in this encounter Care Teams Divinity Teacher Relationship Specialty Start Date End Date Lexus Fowelr M.D., M.P.H. PCP - General 11/14/18 11/13/21 [address] [place] [address] documented as of this encounter
--- OUTSIDE RECORDS SUMMARY | 2022-02-03 15:06 | XMS_ITS | Encounter Summary ---
:1940 Author Organization [facility] Address [address] [place] [address] Care Team Providers Name Role Phone Lexus Fowler M.D., M.P.H. Primary Care Provider [phone] Reason for Visit Reason Comments COVID Inquiry Encounter Details Date Type Department Care Team Description 11/13/2019 Clinical Communication Department of Lexus Fowler Family MedicineMaikol M.D., M.P.H. [facility] [address] [facility] [phone] 411 [facility] [phone] [place], [place] (Work) [address] [phone] Social History Tobacco Use Types Packs/Day Years [...] 10/29/2020 relatives? How often do you attend scientology or mandaen services? Patien t refused 10/29/2020 Do you belong to any clubs or organizations such as Nabil borrero scientology groups, unions, fraternal or athletic groups, or [...] this encounter Miscellaneous Notes Telephone Encounter - Gregoria Leach - 11/13/2019 10:27 AM CDT ([facility] and [facility] locations only: If the patient is not having symptoms and is requesting COVID-19 Nasal Swab testing only, use the process listed in the COVID-19 Patient Requesting COVID PCR Test OTG COVID-19 [place] Patient Requesting COVID PCR Test). 1. Do you have a pending COVID test because you had symptoms or exposure to someone with COVID or you have tested positive for COVID in the last 30 days? no 2. In the past 14 days, do you, anyone in the household, or anyone you have had prolonged exposure have any of the following? a. Fever greater than or equal to 37.8 C (100.0 F)? no b. New symptoms (Specifically: headache, cough, shortness of breath, respiratory distress, sore throat, diarrhea, nausea, vomiting, chills and repeated shaking with chills, myalgia's (muscle aches), loss of smell, or change or loss of taste sensation)? no c. Had close contact with a patient with known or possible COVID-19 in the last 14 days? no Route reply to: [facility] scheduling Scheduling Contact Number: [phone] documented in this encounter Plan of Treatment Not on filedocumented as of this encounter Visit Diagnoses Not on filedocumented in this encounter Care Teams Fiberglass Autobody Repairer Relationship Specialty Start Date End Date Lexus Fowler M.D., M.P.H. PCP - General 11/14/18 11/13/21 [address] [place] [phone] documented as of this encounter
--- OUTSIDE RECORDS SUMMARY | 2022-02-03 15:06 | XMS_ITS | Encounter Summary ---
:1940 Author Organization [facility] Address [address] [place] [address] Care Team Providers Name Role Phone Lexus Fowler M.D., M.P.H. Primary Care Provider [phone] Reason for Referral Outpatient (Routine) - Closed Specialty Diagnoses / Procedures Referred By Contact Refer red To Contact Vascular Medicine Diagnoses Diabetes Mellitus 2 Ulcer Toe (HCC) Diabetes Mellitus Type 2 With Diabetic Neuropathy (HCC) Cellulitis Foot [facility]OW[facility] M.S.N. [address] [place] [phone] Referral ID Status Reason Start Date Expiration Date Visits Requ ested Visits Authorized [id number] Closed 12/04/2019 12/03/2020 1 1 Scheduling Instructions Late morning Reason for Visit Outpatient (Routine) - Closed Specialty Diagnoses / Procedures Referred By Contact Refer red To Contact Vascular Medicine Diagnoses Diabetes Mellitus 2 Ulcer Toe (HCC) Diabetes Mellitus Type 2 With Diabetic Neuropathy (HCC) Cellulitis Foot Right [facility] Kei LOWRY, M.S.N. [address] [place] [phone] Referral ID Status Reason Start Date Expiration Date Visits Requ ested Visits Authorized [id number] Closed 10/30/2019 10/29/2020 1 1 Encounter Details Date Type Department Care Team Description 12/04/2019 Office Visit Department of Bette Man Diabetes Mellitus 2 Ulcer Toe (HCC) (Primary Dx); Vascular Medicine in [facility] Nix C.N.P., Dia betes Mellitus Type 2 With Diabetic Neuropathy (HCC); [place], [place] Elian Cellulitis Foot Right [address] [place] [address] [phone] Social History Tobacco Use Types Packs/Day Years [...] 10/29/2020 relatives? How often do you attend congregation or congregation services? Patien t refused 10/29/2020 Do you belong to any clubs or organizations such as Nabil borrero congregation groups, unions, fraternal or athletic groups, or [...] as of this encounter Patient Instructions Patient InstructionsMichael Gomez 12/04/2019 9:00 AM CDT Wound Location: Right great [...] tape . 6. Change dressing once day. Use [...] Wear darco shoe on your right foot. Patient is using his own modified tennis shoe. When [...] 14 - You may wear shoes multimedia production assistant in your house only. Beyond day 14 - If no problems have developed, you may begin wearing them outside the house. If you have any wound care questions or concerns please contact the Vascular Center at [phone]. If you need to cancel, reschedule, or schedule a wound care appointment please call [phone]. Provider Signature Bette Juarez APRN, C.N.P., M.S.N. documented in this encounter Progress Notes Bette Juarez APRN, C.N.P., M.S.N. - 12/04/2019 9:00 AM CDT REFERRAL SOURCE Bette Juarez APRN, C.N.P., M.S.N. [address] [place] [phone] SUBJECTIVE CHIEF COMPLAINT / REASON FOR VISIT Re-evaluation of right distal 1st toe ulcer. Patient seen at the [facility] wound care clinic. HISTORY OF PRESENT ILLNESS Mr. Vazquez is a 79 y.o. male that I am seeing today for re-evaluation of his right distal 1st toe ulcer. I last evaluated the patient on October 30, 2019. At that time I recommend that they continue with 50:50 Iodosorb and Hydrogel covered with soft gauze, secured in place with Cover Roll stretch. I also recommended a Darco shoe for offloading. On today's evaluation, he denies any fever, chills, night sweats or other constitutional complaints of an infection. He has modified an [id number] pair of shoes as the Darco shoes were too bulky forhis liking. He reports that he is building callus fairly quickly and his is using a 75:25 Iodosorb Hydrogel mixture covering the entire affected surface area of the right great toe. Overall, they think that he is having a small amount of drainage. They continue to change the bandage once a day. He reports that he is doing little walking. His past medical history is significant for hypertension, hyperlipidemia, type 2 diabetes mellitus and neuropathy. He is a nonsmoker. The following [...] the history of present illness. OBJECTIVE VITALS There were no vitals taken for this visit. PHYSICAL EXAMINATION There is no height or weight on file to calculate BMI. Physical Exam General: 79-year-old male in no acute distress Vessels: 08/18 dorsalis pedis Extremities: No Lower extremity edema noted Skin: Upon inspection, there is nonviable tissue present covering the surface and periwound area of the right distal great toe ulcer. After obtaining patient consent and the application of 2% topical lidocaine gel, meticulous debridement of the skin and nonviable tissue was performed with the use of aforceps, scissors and 15 blade scalpel. He tolerated debridement without any incident. After debridement, the wound bed base is 100% granulation tissue. The periwound area is macerated but has epithelialized. There is no undermining or tracking. No drainage or odor noted during debridement. The surrounding tissue is dry and intact. No concerns of a local soft tissue infection. Mental: Pleasant. Alert and oriented x3 Gait: Ambulatory DIAGNOSTIC REVIEW All labs and diagnostic studies were reviewed. ASSESSMENT / PLAN #1 Diabetes Mellitus 2 Ulcer Toe (HCC) #2 Diabetes Mellitus Type 2 With Diabetic Neuropathy (HCC) #3 Cellulitis Foot Right I reviewed my assessment findings and my treatment plan in detail with and his who has accompanied him for re-evaluation of a right distal great toe ulceration. His performs the dressing changes. Since his last evaluation, his wound remained stable and has slightly improved. He continues to havedifficulty controlling the callus. The wound bed base after debridement is 100% granulation tissue. I recommend that they continue with daily 75:25 Iodosorb and Hydrogel. I have added more Iodosorb because of the periwound maceration present. They can cover the wound with a thin layer of soft gauze and secured in place with Cover Roll stretch. The wound should be cleansed daily with normal saline andrough gauze to aid in mechanical debridement and to remove the old product. Offloading continues to be the mainstay treatment to help promote wound healing. I recommended that he continue to utilize the Darco shoe for offloading. Down the road, I think it will be important forhim to obtain new shoes and custom orthotics to optimize the offloading. We can consider a motion analysis to ensure this once he obtains the new footwear and orthotics. Because he is building callus so quickly, I have asked that he return to the wound care clinic in approximately 3 weeks on the RN calendar for debridement. He will then follow up with a provider in 6 weeks for ongoing assessment and re- evaluation. If he has any questions or concerns [...] Name Type Priority Associated Diagnoses Order S [facility] Vascular Medicine Outpatient Referral Routine Diabetes Mellitu s 2 Expected: office visit Ulcer Toe (HCC) 01/15/2020 (clinic) Diabetes Mellitus (Approxima te), Type 2 With Diabetic Expires : Neuropathy (HCC) 12/03/2022 Cellulitis Foot Right documented as of this encounter Visit Diagnoses Diagnosis Diabetes Mellitus 2 Ulcer Toe (HCC) - Pr imary Diabetes Mellitus Type 2 With Diabetic N europathy (HCC) Cellulitis Foot Right documented in this encounter Care Teams Material Assistant Relationship Specialty Start Date End Date Lexus Fowler M.D., M.P.H. PCP - General 11/14/18 11/13/21 [address] [place] [address] documented as of this encounter
--- OUTSIDE RECORDS SUMMARY | 2022-02-03 15:07 | XMS_ITS | Encounter Summary ---
:1940 Author Organization [facility] Address [address] [place] [address] Care Team Providers Name Role Phone Lexus Fowler M.D., M.P.H. Primary Care Provider Encounter Details Date Type Department Care Team Description 08/14/2019 Clinical Communication Department of Angi Ricks Orthopedic Surgery in [facility], C.N.P.[place], [place] D.N.P. [address] [place] [phone] Social History Tobacco Use Types Packs/Day Years [...] 10/29/2020 relatives? How often do you attend buddhism or restorationist services? Patien t refused 10/29/2020 Do you belong to any clubs or organizations such as Nabil borrero buddhism groups, unions, fraternal or athletic groups, or [...] on filedocumented in this encounter Care Teams Aspnet Developer Relationship Specialty Start Date End Date Lexus Fowler M.D., M.P.H. PCP - General 11/14/18 11/13/21 [address] [place] [address] documented as of this encounter
--- OUTSIDE RECORDS SUMMARY | 2022-02-03 15:07 | XMS_ITS | Encounter Summary ---
:1940 Author Organization [facility] Address [address] [place] [address] Care Team Providers Name Role Phone Lexus Fowler M.D., M.P.H. Primary Care Provider [phone] Reason for Referral Outpatient (Routine) - Closed Specialty Diagnoses / Procedures Referred By Contact Refer red To Contact Vascular Medicine [facility] C.N.P[facility] D.N.P. [address] [place] [address] [phone] Referral ID Status Reason Start Date Expiration Date Visits Requ ested Visits Authorized [id number] Closed 10/06/2019 10/05/2020 1 1 RI/CAT/PET Scan (Routine) - Closed Specialty Diagnoses / Procedures Referred By Contact Refer red To Contact Radiology Diagnoses Diabetes Mellitus 2 Ulcer Toe (HCC) [facility] Procedures [facility] Foot Right without IV Contrast C.N.P., D.N.P. [address] [place] [address] [phone] Referral ID Status Reason Start Date Expiration Date Visits Requ ested Visits Authorized [id number] Closed 10/06/2019 10/05/2020 1 1 Reason for Visit Outpatient (Routine) - Closed Specialty Diagnoses / Procedures Referred By Contact Refer red To Contact Vascular Medicine Diagnoses Diabetes Mellitus 2 Ulcer Toe (HCC) Roslyn Veliz APRN, [facility] C.N.P. [address] [place] [address] Referral ID Status Reason Start Date Expiration Date Visits Requ ested Visits Authorized [id number] Closed 10/02/2019 10/01/2020 1 1 Encounter Details Date Type Department Care Team Description 10/06/2019 Comprehensive Visit Department of Emelyn Diamond gil Mellitus 2 Ulcer Toe (HCC) (Primary Dx); Vascular Medicine ALEN Viera, Diabetes M ellitus Type 2 With Diabetic Neuropathy (HCC); in [place], C.N.P., D.N.P. Cellulitis Foot Right [place] [address] [facility] [address] [place] [id number] Social History Tobacco Use Types Packs/Day Years [...] 10/29/2020 relatives? How often do you attend zoroastrianism or latter day services? Patien t refused 10/29/2020 Do you belong to any clubs or organizations such as Nabil viera zoroastrianism groups, unions, fraternal or athletic groups, or [...] Sign Reading Time Taken Comments Blood Pressure 164/70 10/06/2019 9:40 AM CDT Pulse 62 10/06/2019 9:40 AM CDT Temperature - - Respiratory Rate - - Oxygen Saturation - - Inhaled Oxygen Concentration - - Weight 95 kg (209 lb 7 oz) 10/06/2019 9:40 AM CDT Height - - Body Mass Index 29.16 09/22/2018 1:36 PM CDT documented in this encounter Patient Instructions Patient InstructionsStephanie Joaquin R.N. - 10/06/2019 10:00 AM CDT Wound Location: Right great toe 1. Wash hands 2. Remove old dressings 3. Gently cleanse ulcer base with normal saline and rough gauze in a circular motion 4. Apply Iodosorb/Hydrogel (75:25) mixture to ulcer base (There will be some staining of the skin from the Iodosorb) 5. Cover with soft dry gauze, secure with cover roll stretch tape 6. Change dressing once day Moisturize your legs at least once daily with a good non-scented lotion. (ex: Vanicream, Eucerin, Cerava) MRI ordered 10/06/19 to check to make sure you do not have underlying osteomyelitis. (bone infection) Inserts should be replaced on a routine basis. (2-3 times per year) Discontinue use of bacitracin Additional Instructions: It is recommended to add in one extra serving of protein per day. Protein is essential for healing wounds. (ex, eggs, meat, beans, Glucerna is a diabetic friendly drink with protein in it, there are also powders you can get to mix into food or drinks for adding protein into your diet) General ?? Verbal consent obtained to take [...] through 14 - You may wear shoes time study observer in your house only. Beyond day 14 - If no problems have developed, you may begin wearing them outside the house. If you have any wound care questions or concerns please contact the Vascular Center at [phone]. If you need to cancel, reschedule, or schedule a wound care appointment please call [phone]. Provider Signature Emelyn Diamond APRN, C.N.P., D.N.P. documented in this encounter Consult Notes Emelyn Diamond APRN C.N.P., D.N.P. - 10/06/2019 10:00 AM CDT SUBJECTIVE REFERRAL INFORMATION Roslyn Veliz, ALEN, C.N.P. [address] [place] [address] CHIEF COMPLAINT/REASON FOR VISIT Initial evaluation of right distal 1st toe ulcer. [facility] . HISTORY OF PRESENT ILLNESS Mr. Vinayak Vazquez is a pleasant 79 y.o. male [facility] for initial evaluation of right distal 1st toe ulcer. Medical history significant for hypertension, hyperlipidemia, and diabetes mellitus type 2, and peripheral neuropathy. He is a nonsmoker. In May this year, the patient had debridement of callus formation at an outside clinic and reports a 'large chunk came off'. It subsequently bled and was draining for the next month. On July 10, 2019 he was seen at a clinic in [place] for an infected right great toe callus and was treated withKeflex 500 mg b.i.d. x7 days. The area continued to drain and bleed intermittently. From May-early September, he reports not applying any dressing, just cleaning and leaving open to air. Of note, he has had a previous injury to his right great toe caused by a lawn mowing accident. He reports it was completely severed then reattached in 1970 and now 'the bone is gone from where it's supposed to be'. On August 16, 2019 he was seen by Podiatry. The callus was again pared down which revealed an ulceration to the distal aspect of his right 1st toe. He was instructed to utilize a 50/50 mixture of Iodosorb/Hydrogel. A referral was placed to vascular Medicine for wound consultation but this was postponed due to COVID-19. He was seen again by Podiatry on October 02, 2019. The same treatment was continued and he was referred back to the wound center. An x-ray was obtained on October 02, 2019 which could not exclude osteomyelitis. The ordering provider recommended primary care obtain an MRI and lab values including WBC, ESR, CRP and possibly an MRI. Referral to infectious disease may be appropriate. Since his most recent podiatry visit, he has actually been using a 50/50 mixture of Hydrogel and bacitracin. He reports the Iodosorb was too expensive. He is covering the area with a Band-Aid. It consistently soaks through with serosanguineous drainage. Drainage is not malodorous. He spends approximately 1- 2 hours weight bearing daily. He typically wears off the shelf tennis shoes or goes stocking footed for short distances. He does not wear compression. He does take a multivitamin. He estimates 1-2servings of protein daily. Currently, he denies fever, chills, or night sweats; or any increase in redness, swelling, pain, or drainage. REVIEW OF SYSTEMs Constitutional: Negative for fever and night sweats. Respiratory: Negative for dyspnea. Cardiovascular: Negative for chest pain, pressure or tightness and swelling in the legs or feet. Gastrointestinal: Negative for diarrhea, nausea and vomiting. Neurological: Positive for numbness or shooting pain in hands, arms, legs, or feet (Peripheral neuropathy). A 14 point review of systems was completed with the pertinent negatives and positives noted above. DIAGNOSTIC EVALUATIONS REVIEWED: A right foot x-ray obtained on October 02, 2019 showed destructive arthropathy at the right 1st IP jointwith joint space widening and cortical irregularities with possible erosions. Fragmentation and attenuation of the 1st distal phalanx. These findings are nonspecific and could be posttraumatic with secondary advanced arthritis. However an underlying infectious/inflammatory or neuropathic process is possible. Osteomyelitis cannot be excluded. The following portions of the patient's history were reviewed and updated as appropriate: allergies,current medications, family history, past medical history, social history, surgical history, problemlist, labs, diagnostics tests. I reviewed the pertinent clinical notes in the electronic health record. OBJECTIVE PHYSICAL EXAM Vitals: 10/06/19 0940 BP: (!) 164/70 Pulse: 62 Body mass index is 29.16 kg/m??. General: Patient is a healthy-appearing male, seated comfortably and in no acute distress. Head: Atraumatic and normocephalic. Facial features are symmetric. Eyes: Sclerae nonicteric with no injection and no drainage. ENT: Hearing and vision grossly intact. Mucosa pink and moist. Neck is supple with full range of motion. Heart: RRR, no murmurs, rubs or gallops. Vessels: Dorsalis Pedis: 3+ Posterior Tibial: 3+ Lungs: CTA bilaterally, non-labored breathing, no cyanosis noted. No crackles or wheezes appreciated. Extremities: Trace edema noted in lower extremities bilaterally. No upper extremity edema noted. Capillary refill to bilateral lower extremities is brisk. Gait: Steady and stable. Mental: Pleasant, appropriate, and cooperative. Alert and oriented x 3. Skin: Warm, dry and pink with good turgor. No rashes or ecchymosis seen. Erythema with associated calor to right proximal dorsal foot extending towards ankle. Wound Review After obtaining informed consent, a topical lidocaine solution of 2% was applied. After which, sharpdebridement was performed using a forceps, iris scissors, and 15 blade scalpel. Location/Description: Right plantar 1st toe ulcer. A significant amount callus tissue was reduced from the wound perimeter. There is maceration on wound perimeter. Wound bed is pale granulation and adherent fibrin. Entirety of right 1st toe is erythematous with minimal calor. Measurements: 1 X 0.5 X 0.4 cm. ASSESSMENT / PLAN #1 Diabetes Mellitus 2 Ulcer Toe (HCC) #2 Diabetes Mellitus Type 2 With Diabetic Neuropathy (HCC) #3 Cellulitis Foot Right I discussed my assessment findings and plan of care with Mr. Vazquez and his who was also present at today's visit. In terms of dressing selection, I feel he would benefit much more from a mix of Iodosorb/Hydrogel rather than bacitracin and Hydrogel. He was instructed to mix the Iodosorb/Hydrogel in a 75/25 ratio. This should be applied to the wound bed daily and covered with a soft gauze secondary dressing securedwith Cover Roll stretch. The area should be cleansed thoroughly prior to re-application. I am concerned about both a soft tissue infection and underlying osteomyelitis. Given the erythema present to the right 1st toe, proximal dorsal foot and ankle, I will prescribe a course cefadroxil 500mg b.i.d. times 10 days. In addition, I have placed an order for a right foot MRI as well as a CBC/CRP to evaluate for other signs of infection. We also discussed about the importance of adequate offloading. I feel his current footwear likely rubs against the ulceration causing excess pressure and friction. I encouraged him to wear a Darco shoewhen he is mobilizing. He should never walk stocking footed, instead encouraged him to acquire a firm soled slipper to wear instead. He should not drive in the Darco shoe. He was encouraged to offload whenever possible. Also recommended was the continuation of a multivitamin. Maintenance of normal, healthy skin requires ingestion of the following: Vitamin-C, D, and A; the B vitamins pyridoxine and riboflavin; the mineral elements iron, zinc, and copper; and many others. Requirements when there is impaired skin integrity are increased so supplementation may be beneficial. Adequate protein intake is beneficial as thissupplies the necessary amino acids for protein synthesis which creates the building blocks for healing. Adding in one extra serving or protein per day may be beneficial. This can be in the form of meats, seafood, eggs, legumes, yogurt, or dietary supplements such as Ensure, Boost, or Glucerna; among others. Please see the After Visit Summary and/or Patient Instructions outlined in the encounter for detailsregarding wound care instructions. Strategies to promote wound healing include: wound care and off-loading It was a pleasure to see Mr. Vazquez . Patient verbalized understanding of all the recommendations and was in agreement with the plan. In the interm if he has any additional questions or concerns he shouldcontact the Vascular Wound Center. Follow-up as listed: Wound Provider visit: 2 weeks Emelyn Diamond APRN, C.N.P., D.N.P. INFORMED CONSENT: [...] Name Type Priority Associated Diagnoses Order S [facility] Vascular Medicine Outpatient Referral Routine Exp ected: office visit 10/20/2019 (clinic) (Approximate), Expires: 10/05/2022 documented as of this encounter Results MR Foot Right without [...] ulceration. No eliu dence of associated osteomyelitis. Jose Alejandro Cassidy APRN.N.P., D.N.P. IMG MRI PROCEDURE S (ABNORMAL) CRP (C-Reactive Protein) (10/06/2019 10:54 AM CDT) athologist Signature C-Reactive 14.4 (H) <=8.0 mg/L 10/06/2019 DTL Protein (CRP), 1:10 PM CDT S Specimen Anatomical Collection Method Collection Time Receive d Time (Source) Location / / Volume Laterality Blood (Blood, 10/06/2019 10:54 10/06/2019 Venous) AM CDT 12:48 PM CDT Emelyn Diamond APRN, Jose Alejandro.N.P., D.N.P. LAB BLOOD ADD-ON Performing Organization Address City/State/ZIP Code Phon e Number [facility] - [address] [place] [phone] [facility] [place] [place] [address] [facility] 200 [facility] CBC without Differential (10/06/2019 10:54 AM CDT) athologist Signature Hemoglobin 14.1 13.2 - 10/06/2019 [...] 10/06/2019 Venous) AM CDT 11:51 AM CDT Emelyn Diamond APRN C.N.P., D.N.P. LAB BLOOD ADD-ON Performing Organization Address City/State/ZIP Code Phon e Number [facility] - 200 [place], [place] [address] [facility] [place] [address] [facility] 200 [facility] documented in this encounter Visit Diagnoses Diagnosis Diabetes Mellitus 2 Ulcer Toe (HCC) - Pr imary Diabetes Mellitus Type 2 With Diabetic N europathy (HCC) Cellulitis Foot Right Diabetes Mellitus 2 Ulcer Toe (HCC) documented in this encounter Care Teams Geography Instructor Relationship Specialty Start Date End Date Lexus Fowler M.D., M.P.H. PCP - General 11/14/18 11/13/[address] [place] [address] documented as of this encounter
--- OUTSIDE RECORDS SUMMARY | 2022-02-03 15:07 | XMS_ITS | Encounter Summary ---
:1940 Author Organization [facility] Address [address] [place] [address] Care Team Providers Name Role Phone Lexus Fowler M.D., M.P.H. Primary Care Provider [phone] Reason for Referral Outpatient (Routine) - Closed Specialty Diagnoses / Procedures Referred By Contact Refer red To Contact Orthopedic Surgery Roslyn Veliz APRN, [place] [facility] C.N.PClarence [address] [place] [phone] Referral ID Status Reason Start Date Expiration Date Visits Requ ested Visits Authorized [id number] Closed 08/16/2019 08/15/2020 1 1 Reason for Visit Outpatient (Routine) - Closed Specialty Diagnoses / Procedures Referred By Contact Refer red To Contact Orthopedic Surgery Adan Mosquera, [place] [facility] P.A.-C. 200 [place] [address] Referral ID Status Reason Start Date Expiration Date Visits Requ ested Visits Authorized [id number] Closed 03/06/2019 03/05/2020 1 1 Encounter Details Date Type Department Care Team Description 08/16/2019 Procedure visit Department of Roslyn Veliz, Diabetes Mellitus 2 Ulcer Toe (HCC) (Primary Dx); Orthopedic Surgery ALEN C.N.P. Dystrophic Toenail; in [address] Diabetes Mellitus Type 2 With Diabetic P olyneuropathy (HCC); [place], [place] Callus [place] [facility] [address] [place] [address] [place], [place] [phone] (Work) [phone] Social History Tobacco Use Types Packs/Day Years [...] How often do you attend scientology or judaism services? Patien t refused 10/29/2020 [...] documented as of this encounter Progress Notes Roslyn Veliz, ALEN, C.N.P. - 08/16/2019 9:00 AM CDT SUBJECTIVE Pain reported: 0/10 CHIEF COMPLAINT / REASON FOR VISIT Vinayak Vazquez is a 79 y.o. male accompanied by his who presents for trimming of toenails and paring calluses and is under the care of Lexus Fowler M.D., M.P.H.. HISTORY OF PRESENT ILLNESS Mr. Vazquez accompanied by his presents to [facility] for trimming of his dystrophic toenails and paring a pre ulcerative callus. The patient wears [employer] shoes with molded inserts. He states that he gets these insert from a place out town and that Medicare covers the cost. He has had custom inserts from [employer] in the past. A1C was 6.6 on 03/08/19. In May of this year, the patient had his callus pared states that a large chunk was removed withsubsequent bleeding and draining for the next month. On 07/10/19, he was seen the [facility] in [place] for a infected right great toe callus and was treated with Keflex 500 mg twice daily x7 days. Thepatient states that the callus has continued to drain and he notes that he has a light bloody spot on his sock after removing it right now. His past medical history is significant for type 2 diabetes mellitus with neuropathy, callus and history of diabetic foot ulcer. His right big toe had been injured and a lawn mowing accident years ago. Claudication: Negative Burning: Negative Paresthesias: Numbness in both feet right greater than left Active care for diabetes mellitus type 2 with peripheral neuropathy: Last seen Dr. Shivani Fowler [facility] on 03/10/19. OBJECTIVE PHYSICAL EXAM General: Alert, oriented and in no acute distress Extremities: Bilateral hammertoes, right big toe deformity Vascular: DP pulses: Bilateral pulses are palpable PT pulses: Bilateral pulses are palpable Edema: Negative Skin: Hair growth: Scant Toenails: Right 1 is thickened and dystrophic all others are long Skin pigmentation: Well pigmented Skin color: Pallor Skin texture: Thin, shiny, dry Skin temperature changes: Bilateral feet are warm [place]/calluses: Hyperkeratotic buildup over the right hallux plantar medial surface with sub callus discoloration and a 1.3 cm fissure. There is mild increased warmth, but no evidence of active infection. Neurological: Monofilament testing: Right 1/5 and left 3/5 ?? 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 With the patient's written permission, a photo was taken pre and post sanding. The callus was sanded with a sanding bur and lightlypared with a number 15 blade. The 1.3 cm fissure shows no evidence of drainage or bleeding at this time. The toe was dressed with bacitracin ointment and gauze. I prescribed Hydrogel and Iodosorb 50/50mixture daily. If this is too expensive and his insurance does not cover, he may use an [id number] antibiotic ointment. He states that he does have gauze had home that he can use to wrap the toe daily. I also recommended referral to the wound clinic. I reviewed signs symptoms of infection and notify his provider immediately if there is any concern for infection. If he is unable to get into the wound clinic I will see him back in 4-6 weeks. Provided the patient with my card, reviewed signs/symptoms of infection and discussed how to reach me should concerns arise for infection or pain. ?? Procedural Pause Procedural pause conducted to verify: correct patient identity, procedure to be performed, and as applicable, correct side and site, correct patient position, and availability of special equipment or special requirements. ?? PATIENT EDUCATION TEMPLATE Ready to learn, no apparent learning barriers were identified; learning preferences include listening. Explained diagnosis and treatment plan; patient expressed understanding of the content. ?? documented in this encounter Plan of Treatment Scheduled Referrals Name Type Priority Associated Order Schedule Diagnoses Orthopedic Surgery Outpatient Referral Routine Ex pected: office visit 10/02/2019 (clinic) (Approximate), Expires: 08/15/2022 documented as of this encounter Visit Diagnoses Diagnosis Diabetes Mellitus 2 Ulcer Toe (HCC) - Pr imary Dystrophic Toenail Diabetes Mellitus Type 2 With Diabetic P olyneuropathy (HCC) [facility] [facility] documented in this encounter Care Teams Ham Passer Relationship Specialty Start Date End Date Lexus Fowler M.D., M.P.H. PCP - General 11/14/18 11/13/[address] [place] [address] documented as of this encounter
--- OUTSIDE RECORDS SUMMARY | 2022-02-03 15:07 | XMS_ITS | Encounter Summary ---
:[address] [facility] Address [address] [place] [address] Care Team Providers Name Role Phone Lexus Fowler M.D., M.P.H. Primary Care Provider [phone] Reason for Visit Reason Comments Med Refill Encounter Details Date Type Department Care Team Description 03/15/2019 Refill Department of [facility] Kasi Alvarez M.D. Med Refill Medicine, [facility] [address] [place] [address] [place] [address] [address] [facility] [place] [address] [phone] Social History Tobacco Use Types Packs/Day Years [...] or organizations such as Not aske d hinduism groups, unions, fraternal or athletic groups, [...] on filedocumented in this encounter Care Teams Dust Collector Treater Relationship Specialty Start Date End Date Lexus Fowler M.D., M.P.H. PCP - General 11/14/18 11/13/21 [address] [place] [address] documented as of this encounter
--- OUTSIDE RECORDS SUMMARY | 2022-02-03 15:07 | XMS_ITS | Encounter Summary ---
:1940 Author Organization [facility] Address [address] [place] [address] Care Team Providers Name Role Phone Lexus Fowler M.D., M.P.H. Primary Care Provider [phone] Reason for Visit Reason Comments Med Refill Encounter Details Date Type Department Care Team Description 03/20/2019 Refill Department of [facility] Dinah Vargas RClarenceNClarence Med Refill Medicine, [facility] brandon Hernandez [facility] [address] [place] [address] Social History Tobacco Use Types Packs/Day Years [...] 10/29/2020 relatives? How often do you attend religion or uatsdin services? Patien t refused 10/29/2020 Do you belong to any clubs or organizations such as Nabil borrero religion groups, unions, fraternal or athletic groups, or [...] this encounter Miscellaneous Notes Telephone Encounter - Vijaya Vargas L.P.N. - 03/20/2019 4:18 PM [employer] Patient requested Amlodipine (Norvasc) 5 mg prescription and states that pharmacy did not receive iton 03/10. [employer] documented in this encounter Plan of Treatment Not on filedocumented as of this encounter Visit Diagnoses Diagnosis Hypertension Essential Primary documented in this encounter Care Teams Inspector Sheet Metal Parts Relationship Specialty Start Date End Date Lexus Fowler M.D., M.P.H. PCP - General 11/14/18 11/13/21 [address] [place] [address] documented as of this encounter
--- OUTSIDE RECORDS SUMMARY | 2022-02-03 15:07 | XMS_ITS | Encounter Summary ---
:1940 Author Organization [facility] Address [address] [place] [address] Care Team Providers Name Role Phone Lexus Fowler M.D., M.P.H. Primary Care Provider [phone] Reason for Referral Outpatient (Routine) - Closed Specialty Diagnoses / Procedures Referred By Contact Refer red To Contact Family Medicine Lexus Fowler M.D., [facility] M.P.H. [address] [place] [address] [phone] Referral ID Status Reason Start Date Expiration Date Visits Requ ested Visits Authorized [id number] Closed 09/25/2019 09/24/2020 1 1 Encounter Details Date Type Department Care Team Description 09/25/2019 Orders Only Department of [facility] Lexus Fowler, Diabetes Mellitus Medicine, [facility] Alonso, M.P. H. Type 2 With Diabetic Clinic [place], in [address] [place] [address] Neuropathy (HCC) [place], [place] (Primary Dx) [address] [facility] [address] [place] [address] [phone] Social History Tobacco Use Types Packs/Day Years [...] How often do you attend temple or gnosticism services? Patien t refused 10/29/2020 Do you belong to any clubs or organizations such as Nabil borrero temple groups, unions, fraMyShape or athletic groups, or school groups? How [...] Name Type Priority Associated Diagnoses Order S [facility] Medicine Outpatient Referral Routine Expec margoth: office visit 09/25/2019 (clinic) (Approximate), Expires: 09/24/2022 documented as of this encounter Results (ABNORMAL) Hemoglobin A1c (09/26/2019 8:34 AM CDT) P athologist Signature Hemoglobin A1c, 6.5 (H) 4.0 - 5.6 09/26/2019 DTL B % 1:00 PM CDT Comment: Hemoglobin A1c values greater than or eq ual to 6.5 percent are diagnostic for diabetes mellitus. ?? Diagnosis should be confirmed by repeat testing. ??In diabet ic patients, HbA1c goals should be discussed with healthcar e provider. Specimen Anatomical Collection Method Collection Time Receive d Time (Source) Location / / Volume Laterality Blood (Blood, 09/26/2019 8:34 AM 09/26/19 20 Venous) CDT 12:35 PM CDT Lexus Fowler M.D., M.P.H. LAB BLOOD ADD-ON Performing Organization Address City/State/ZIP Code Phon e Number [facility] - 200 [place], [place] [address] [facility] [place] [place] [address] [facility] 200 [facility] documented in this encounter Visit Diagnoses Diagnosis Diabetes Mellitus Type 2 With Diabetic N europathy (HCC) - Primary documented in this encounter Care Teams Manager Core Relationship Specialty Start Date End Date Lexus Fowler M.D., M.P.H. PCP - General 11/14/18 11/13/[address] [place] [address] documented as of this encounter
--- OUTSIDE RECORDS SUMMARY | 2022-02-03 15:07 | XMS_ITS | Encounter Summary ---
:1940 Author Organization [facility] Address [address] [place] [address] Care Team Providers Name Role Phone Lexus Fowler M.D., M.P.H. Primary Care Provider [phone] Reason for Referral Outpatient (Routine) - Closed Specialty Diagnoses / Procedures Referred By Contact Refer red To Contact Orthopedic Surgery Roslyn eVliz APRN, [place] [facility] C.N.P. [address] [place] [phone] Referral ID Status Reason Start Date Expiration Date Visits Requ ested Visits Authorized [id number] Closed 10/02/2019 10/01/2020 1 1 Outpatient (Routine) - Closed Specialty Diagnoses / Procedures Referred By Contact Refer red To Contact Vascular Medicine Diagnoses Diabetes Mellitus 2 Ulcer Toe (HCC) Roslyn Veliz APRN, [place] [facility] C.N.P. 200 [place] [address] Referral ID Status Reason Start Date Expiration Date Visits Requ ested Visits Authorized [id number] Closed 10/02/2019 10/01/2020 1 1 Reason for Visit Outpatient (Routine) - Closed Specialty Diagnoses / Procedures Referred By Contact Refer red To Contact Orthopedic Surgery Roslyn Veliz APRN, [place] [facility] C.N.P. [address] [place] [address] Referral ID Status Reason Start Date Expiration Date Visits Requ ested Visits Authorized [id number] Closed 08/16/2019 08/15/2020 1 1 Encounter Details Date Type Department Care Team Description 10/02/2019 Procedure visit Department of Roslyn Veliz, Diabetes Mellitus 2 Ulcer Toe (HCC) (Primary Dx); Orthopedic Surgery in [place] Dystrophic Toenail; [place], [place] [address] [facility] Diabetes Mellitus Type 2 With Diabetic N europathy (HCC); [address] [place], [place] [phone] Social History Tobacco Use Types Packs/Day Years [...] 10/29/2020 relatives? How often do you attend advent or buddhist services? Elizabeth t refused 10/29/2020 Do you belong to any clubs or organizations such as Nabil borrero advent groups, unions, fraternal or athletic groups, or [...] as of this encounter Progress Notes Roslyn Veliz APRN, C.N.P. - 10/02/2019 1:30 PM CDT SUBJECTIVE Pain reported: 0/10 CHIEF COMPLAINT / REASON FOR VISIT Vinayak Vazquez is a 79 y.o. male presents for trimming of toenails and paring calluses and is under the care of Lexus Fowler M.D., M.P.H.. HISTORY OF PRESENT ILLNESS Mr. Vazquez presents to the [facility] for trimming of his dystrophic toenails and paring neurotrophic ulcer/callus. The patient wears New Balance shoes with molded inserts. He states that he getsthese insert from a place out town and that Medicare covers the cost. [facility] During his visit with his primary care provider on 09/28/19, she provided the patient with prescription for diabetic shoes and custom inserts. A1C was 6.5 on 09/25/19. In May of this year, the patient had his callus pared and states that a large chunk was removed with subsequent bleeding and draining for the next month. On 07/10/19, he was seen the [facility] in [place] for a infected right great toe callus and was treated with Keflex 500 mg twice daily x7 days.When I saw him in August, the patient stated that the callus continued to drain. I started him on Hydrogel and Iodosorb 50 50 mixture daily. Today, the patient feels that the ulcers doing a lot better. He does note some occasional drainage if he has been walking. His past medical history is significant for type 2 diabetes mellitus with neuropathy, callus and history of diabetic foot ulcer. His right big toe had been injured and a lawn mowing accident years ago. Claudication: Negative Burning: Negative Paresthesias: Numbness in both feet right greater than left Active care for diabetes mellitus type 2 with peripheral neuropathy: [facility] OBJECTIVE PHYSICAL EXAM General: Alert, oriented and [...] Skin temperature changes: Bilateral feet are warm Lowell/calluses: Hyperkeratotic buildup over the right hallux plantar medial surface with sub callus discoloration. The toe does have some erythema, increased warmth and mild swelling. There is no fluctuance. Neurological: Monofilament testing: Right 1/5 and left 3/5 ?? 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 With the patient's permission,a photo was taken pre and post paring of the callus. The 1.3 cm fissure shows no evidence of drainage or bleeding at this time. The toe was dressed with bacitracin ointment and gauze. He is to continuewith Hydrogel and Iodosorb 50/50 mixture daily. I again referred him to the wound clinic. I will also obtain x-rays of the right great toe to rule out osteomyelitis. Provided the patient with my card, reviewed signs/symptoms of infection and discussed how to reach me should concerns arise for infection or pain. Informed Consent: The risks, benefits, alternatives to the planned procedure were discussed in detail, including the risk of exposure to COVID-19 within the facility. Careful consideration was given tothe urgency of the procedure, which has been reviewed and confirmed by practice leadership. Additional consideration has been given to the availability of staff, supplies and equipment, including but not limited to a post-operative bed, a ventilator in the intensive care unit, blood products, and personal protective equipment. All questions answered and consent given. ?? Procedural Pause Procedural pause conducted to [...] Name Type Priority Associated Order Schedule Diagnoses Vascular Medicine - Outpatient Referral Routine Diabetes Rosario jackson 2 Expected: ICS wound care Ulcer Toe (HCC) 10/02/2019 consult (clinic) - (Approxim ate), RST use only Expires: 10/01/2022 Orthopedic Surgery Outpatient Referral Routine Ex pected: office visit 01/02/2020 (clinic) (Approximate), Expires: 10/01/2022 documented as of this encounter Results DX Foot Right 3+ Views (10/02/2019 2:34 PM CDT) Anatomical Region Laterality Modality Lower Extremity, Foot, Musculoskeletal RST LOS, Right Computed Radiography Musculoskeletal ARZ LOS, Muskuloskeletal FLA LOS Specimen (Source) Anatomical Collection Method Collection Time Re ceived Time Location / / Volume Laterality 10/02/2019 3:02 PM CDT Impressions 10/02/2019 3:06 PM CDT Soft tissue irregularity about the right distal great toe including the nail plate and nail bed. Destructive arthropathy at the right 1st IP joint with joint space widening and cortical i rregularities with possible erosions. Fragmentation and attenuation of the 1st distal phalanx. These findings are nonspecific and could be posttraumatic w ith secondary advanced arthritis. However, an underlying infectious/inflam matory ??or neuropathic process is possible. Ultimately, septic arthritis a nd local osteomyelitis are not excluded. Consider MRI if indicated. Scattered mild and moderate degenerative arthritis. Tiny calcaneal spurs. Narrative 10/02/2019 3:06 PM CDT EXAM: ??DX FOOT RIGHT 3+ VIEWS Procedure Note Victor Manuel Gottlieb M.D. - 10/02/2019Form atting of this note might be different from the original. EXAM: DX FOOT RIGHT 3+ VIEWS IMPRESSION: Soft tissue irregularity about the right distal great toe including the nail plate and nail bed. Destructive arthropathy at the right 1st IP joint with joint space widening and cortical i rregularities with possible erosions. Fragmentation and attenuation of the 1st distal phalanx. These findings are nonspecific and could be posttraumatic w ith secondary advanced arthritis. However, an underlying infectious/inflam matory or neuropathic process is possible. Ultimately, septic arthritis a nd local osteomyelitis are not excluded. Consider MRI if indicated. Scattered mild and moderate degenerative arthritis. Tiny calcaneal spurs. Roslyn Veliz APRN, C.N.P. IMG DIAGNOSTIC IMAGING PROCE MARY documented in this encounter Visit Diagnoses Diagnosis Diabetes Mellitus 2 Ulcer Toe (HCC) - Pr imary Dystrophic Toenail Diabetes Mellitus Type 2 With Diabetic N europathy (HCC) Callus Lowell Foot Diabetes Mellitus 2 Ulcer Toe (HCC) documented in this encounter Care Teams Manager Of Software Development Relationship Specialty Start Date End Date Lexus Fowler M.D., M.P.H. PCP - General 11/14/18 11/13/[address] [place] [address] documented as of this encounter
--- OUTSIDE RECORDS SUMMARY | 2022-02-03 15:07 | XMS_ITS | Encounter Summary ---
:1940 Author Organization [facility] Address [address] [place] [address] Care Team Providers Name Role Phone Lexus Fowler M.D., M.P.H. Primary Care Provider Encounter Details Date Type Department Care Team Description 03/17/2019 Medication Department of Lexus Fowler on Management Family MedicineMaikol M.D., M.P.H. Essential Primary [facility] [address] [place] [address] [address] [facility] [phone] [place], [place] (Work) [address] Social History Tobacco Use [...] 10/29/2020 relatives? How often do you attend methodist or jain services? Patien t refused 10/29/2020 Do you belong to any clubs or organizations such as Nabil borrero methodist groups, unions, fraternal or athletic groups, or [...] documented as of this encounter Progress Notes Lexus Fowler M.D., M.P.H. - 03/17/2019 4:30 PM CDT This encounter was created in error. documented in this encounter Plan of Treatment Not on filedocumented as of this encounter Visit Diagnoses Diagnosis Hypertension Essential Primary documented in this encounter Care Teams Middle School Science Teacher Relationship Specialty Start Date End Date Lexus Fowler M.D., M.P.H. PCP - General 11/14/18 11/13/21 [address] [place] [address] documented as of this encounter
--- OUTSIDE RECORDS SUMMARY | 2022-02-03 15:07 | XMS_ITS | Encounter Summary ---
:1940 Author Organization [facility] Address [address] [place] [address] Care Team Providers Name Role Phone Lexus Fowler M.D., M.P.H. Primary Care Provider Reason for Visit Reason Comments Med Refill Encounter Details Date Type Department Care Team Description 05/12/2019 Refill Department of [facility] Kasi Alvarez M.D. Med Refill Medicine, [facility] [address] [place] [address] [place] [address] [address] [facility] [place] [address] [phone] Social History Tobacco Use Types Packs/Day Years [...] How often do you attend jainism or anabaptist services? Patien t refused 10/29/2020 Do you belong to any clubs or organizations such as Not aske d jainism groups, unions, fraternal or athletic groups, [...] as of this encounter Visit Diagnoses Diagnosis Hyperlipidemia documented in this encounter Care Teams Business Process Lead Relationship Specialty Start Date End Date Lexus Fowler M.D., M.P.H. PCP - General 11/14/18 11/13/21 [address] [place] [address] documented as of this encounter
--- OUTSIDE RECORDS SUMMARY | 2022-02-03 15:07 | XMS_ITS | Encounter Summary ---
:1940 Author Organization [facility] Address [address] [place] [address] Care Team Providers Name Role Phone Lexus Fowler M.D., M.P.H. Primary Care Provider [phone] Encounter Details Date Type Department Care Team Description 10/02/2019 Hospital Encounter Department of Roslyn Veliz Diabet es Mellitus 2 Radiology, [place] [facility] C.N.P. Ulcer Toe ([facility]) Building, in [address] [place] [address] [place], [place] [phone] (Work) [phone] Social History Tobacco Use Types Packs/Day Years [...] How often do you attend yarsani or episcopal services? Patien t refused 10/29/2020 Do you belong to any clubs or organizations such as Not aske d yarsani groups, unions, fraternal or athletic groups, [...] Diabetic Neuropathy times a day. ([facility]) ONETOUCH ULTRA BLUE TEST daily. for 3 01/07/2018 08/16/2020 STRIP strips testing rosuvastatin (CRESTOR) 10 Take 1 tablet (10 100 tablet 3 11/201902/14/2020 mg tabletIndications: mg total) by Hyperlipidemia mouth daily. documented as of this encounter Miscellaneous Notes Result Encounter Note - Roslyn Veliz APRN, C.N.P. - 10/03/2019 2:46 PM CDT #1 (R) hallux neurotrophic ulcer with inflammation The ulceration has been present for 4 months. Given the redness and increased warmth I am concerned for osteomyelitis, therefore obtain an x-ray of the toe. The x-ray showed destructive arthropathy of the right 1st IP joint with possible erosions. Findings could be posttraumatic with secondary advanced arthritis. Osteomyelitis could not be ruled out. I reviewed the results with the patient and recommended that he follow-up with his primary care provider. I will send Dr. Lexus Fowler a note with my recommendations for a WBC, ESR, CRP and possibly an MRI and referral to Infectious Disease. The patient agreed with the plan. documented in this encounter Plan of Treatment Not on filedocumented as of this encounter Procedures Procedure Name Priority Date/Time Associated Comments Diagnosis DX FOOT RIGHT 3+ RAD - Routine 10/02/2019 2:34 Diabetes Mellitus Re sults for this VIEWS (most inpatients PM CDT 2 Ulcer Toe (HCC) proced ure are in and all the results outpatients) section. documented in this encounter Results DX Foot Right 3+ [...] (HCC) documented in this encounter Care Teams Director Instrumentation Relationship Specialty Start Date End Date Lexus Fowler M.D., M.P.H. PCP - General 11/14/18 11/13/21 [address] [place] [address] documented as of this encounter
--- OUTSIDE RECORDS SUMMARY | 2022-02-03 15:07 | XMS_ITS | Encounter Summary ---
:1940 Author Organization [facility] Address [address] [place] [address] Care Team Providers Name Role Phone Lexus Fowler M.D., M.P.H. Primary Care Provider [phone] Encounter Details Date Type Department Care Team Description 03/20/2019 Clinical Communication Department of [facility], [facility] Alonso Abrams [place], in [address] [place] [address] 411 [facility] [phone] [place] [address] (Work) [phone] Social History Tobacco Use Types Packs/Day Years [...] How often do you attend restoration or anglican services? Patien t refused 10/29/2020 Do you [...] place to sleep or slept in a long term (including now)? Sex Assigned at Date Recorded Not on file documented as of this encounter Miscellaneous Notes Telephone Encounter - Vijaya Vargas L.P.N. - 03/20/2019 4:15 PM AUTO DISMANTLER ----- Message from Enedelia Tapia M.D. sent at 03/20/2019 4:09 PM AUTO DISMANTLER ----- Please clarify what medication and use a prescription refill encounter so I can access it. ----- Message ----- From: Vijaya Vargas L.P.N. Sent: 03/17/2019 4:35 PM AUTO DISMANTLER To: Enedelia Tapia M.D. Pended Rx for you to review. Patient states that pharmacy did not receive order sent on 03/10. Please advise. DISMANTLER documented in this encounter Plan of Treatment Not on filedocumented as of this encounter Visit Diagnoses Not on filedocumented in this encounter Care Teams Spice Miller Relationship Specialty Start Date End Date Lexus Fowler M.D., M.P.H. PCP - General 11/14/18 11/13/21 [address] [place] [address] documented as of this encounter
--- OUTSIDE RECORDS SUMMARY | 2022-02-03 15:07 | XMS_ITS | Encounter Summary ---
:1940 Author Organization [facility] Address [address] [place] [address] Care Team Providers Name Role Phone Lexus Fowler M.D., M.P.H. Primary Care Provider [phone] Reason for Visit Reason Onset Date Comments Med Refill 05/23/2019 Encounter Details Date Type Department Care Team Description 05/23/2019 Refill Department of Family Lexus Fowler M.D., Med Refill Medicine, [facility] M.P .H. brandon Hernandez [facility] [address] [facility] [address] [place] [address] [place] [address] [phone] Social History Tobacco Use Types Packs/Day Years [...] How often do you attend restoration or gnosticist services? Patien t refused 10/29/2020 Do you [...] encounter Miscellaneous Notes Telephone Encounter - Marshal Martínez, R.N. - 05/23/2019 2:20 PM CST SUBJECTIVE CHIEF COMPLAINT / REASON FOR CALL Med Refill Information Discussed Patient was contacted and informed that a new prescription was sent to his pharmacy and that a call was made to the pharmacy to make sure that they received the new prescription. Patient was informed that it was not known on our end whether or not he has to contact the pharmacy again to have it filled, but that the pharmacy should now have his prescription on hand. Patient was appreciative for the phone call letting him know the prescription had been sent. PLAN Disposition/Recommendation: self-care is appropriate at this time, patient encouraged to call back with questions Information/Education: patient/caller able to teach back Caller agreeable to plan of care: yes The following references were used: nursing clinical judgement [employer] MANAGER Telephone Encounter - Marshal Martínez R.N. - 05/23/2019 2:13 PM CST Pharmacy was contact to be sure that they received the prescription. They were able to confirm that it was received. [employer] MANAGER Telephone Encounter - Marshal Martínez R.N. - 05/23/2019 1:31 PM CST Lulu, from the patient's pharmacy [facility], called stating that they never received the prescription for Rosuvastatin. The patient is nearly out and needs a refill. [facility] is requesting that a new prescription be sent to them. [employer] MANAGER Telephone Encounter - Shashi Doan - 05/23/2019 12:10 PM CST Caller:Vinayak Call back number:[phone] Name of medication:rosuvastatin (CRESTOR) Strength:10 mg tablet Frequency:Take 1 tablet (10 mg total) by mouth daily Quantity:NA PCP: Malcolm Pharmacy:[facility] Julita [employer] MANAGER documented in this encounter Plan of Treatment Not on filedocumented as of this encounter Visit Diagnoses Diagnosis Hyperlipidemia documented in this encounter Care Teams Customer Quality Engineer Relationship Specialty Start Date End Date Lexus Fowler M.D., M.P.H. PCP - General 11/14/18 11/13/21 [address] [place] [address] documented as of this encounter
--- OUTSIDE RECORDS SUMMARY | 2022-02-03 15:07 | XMS_ITS | Encounter Summary ---
:1940 Author Organization [facility] Address [address] [place] [address] Care Team Providers Name Role Phone Lexus Fowler M.D., M.P.H. Primary Care Provider Reason for Referral Outpatient (Routine) - Closed Specialty Diagnoses / Procedures Referred By Contact Refer red To Contact Lexus Fowler M.D., M.P.H. [facility] [address] [place] [phone] Referral ID Status Reason Start Date Expiration Date Visits Requ ested Visits Authorized [id number] Closed 09/28/2019 09/27/2020 1 1 utpatient (Routine) - Closed Specialty Diagnoses / Procedures Referred By Contact Refer red To Contact Lexus Kern M.D.[facility] [address] [place] [phone] Referral ID Status Reason Start Date Expiration Date Visits Requ ested Visits Authorized [id number] Closed 09/28/2019 09/27/2020 1 1 Reason for Visit Reason Comments Diabetes Hypertension Outpatient (Routine) - Closed Specialty Diagnoses / Procedures Referred By Contact Refer red To Contact Lexus Kern M.D., Jesus Owusu M.P.H. [address] [place] [address] Referral ID Status Reason Start Date Expiration Date Visits Requ ested Visits Authorized [id number] Closed 09/25/2019 09/24/2020 1 1 Encounter Details Date Type Department Care Team Description 09/28/2019 Office Visit Department of Family Lexus Fowler, Diabetes Mellitus Type 2 With Diabetic Neuropathy (HCC) (Primary Dx); Medicine, Estiven Gupta, M.P.H. Hy[facility] [address] [facility] [address] [address] [facility] [place] [address] Social History Tobacco Use Types Packs/Day [...] 10/29/2020 relatives? How often do you attend holiness or voodoo services? Patien t refused 10/29/2020 Do you belong to any clubs or organizations such as Nabil borrero holiness groups, unions, fraternal or athletic groups, or [...] Sign Reading Time Taken Comments Blood Pressure 125/64 09/28/2019 2:42 PM connex averag e CDT Pulse 56 09/28/2019 2:42 PM reg CDT Temperature - - Respiratory Rate - - Oxygen Saturation - - Inhaled Oxygen Concentration - - Weight 94.3 kg (207 lb 14.3 09/28/2019 2:42 PM oz) CDT Height - - Body Mass Index 28.94 09/22/2018 1:36 PM CDT documented in this encounter Patient Instructions Patient InstructionsLexus Fowler M.D., M.P.H. - 09/28/2019 3:00 PM CDT Keep taking care of yourself! Good to see you today. documented in this encounter Progress Notes Lexus Fowler M.D., M.P.H. - 09/28/2019 3:00 PM CDT SUBJECTIVE CHIEF COMPLAINT / REASON FOR VISIT Vinayak Vazquez is a 79 y.o. male who presents for evaluation of Diabetes and Hypertension. HISTORY OF PRESENT ILLNESS Mr. Vazquez is a 78-year-old man past medical history diabetes type 2, hypertension, hyperlipidemia, elevated PSA who presents today for follow-up his diabetes and hypertension. Overall he reports he is feeling well and has no concerns today. Regarding his diabetes, he reports he has been taking his metformin 500 mg b.i.d.. He is not having any urinary symptoms. He reports that he gets his eyes checked yearly, he is next due in November, and hewill get this done in [place]. Denies numbness or tingling in his feet. Reports that he regularly sees a battery tester, and infective seeing his normal battery tester tomorrow, he typically sees her every month and a half. For his hypertension, he is currently on hydrochlorothiazide, losartan, amlodipine. He measures his blood pressure at home twice a day with an arm cuff. It is consistently below 140/90. He reports thathe recently cut sugary treats out of his diet, and stopped drinking alcohol, which he feels has improved his blood pressure. He has also lost approximately 5 lb. He also wanted to discuss his health maintenance, and was wondering when he was due for his next colonoscopy. He is interested in getting his hepatitis B vaccine today. The following portions of the patient's history were reviewed and updated as appropriate: allergies,current medications, medical history, social history and problem list. OBJECTIVE PHYSICAL EXAM Vitals: 09/28/19 1442 BP: 125/64 Pulse: (!) 56 General: Well appearing man in no apparent distress. Cardiovascular: Regular rate and rhythm, no murmurs, rubs, or gallops. Pulmonary: Clear to auscultation bilaterally, no wheezing, crackles, rales Skin: [place] and well perfused ASSESSMENT / PLAN #1 Diabetes Mellitus Type 2 With Diabetic Neuropathy (HCC) Assessment & Plan: Is currently well controlled, and has even made recent dietary changes. [place] D5 for Diabetes: 1. Blood pressure (<140/90): 125/64, at goal 2. Taking a statin as recommended: On Crestor, at goal 3. A1c <8%: 6.5 at goal 4. Tobacco use: No use, at goal 5. Take ASA as recommended: On a baby aspirin He also requested a prescription for DME diabetic shoes and insoles, I provided this for him today. Orders: - Hemoglobin A1c; Future; Expected date: 02/28/2020 - DME Lower limb orthosis (ankle, foot, hip, knee); - DME Medical Justification: Lower limb devices (ankle, foot, knee, shoe) #2 Hypertension Essential Primary Assessment & Plan: His blood pressure today was 125/64, and was well controlled. He reports that this is consistent home, he checks his blood pressure twice a day with home cuff. He has recently made lifestyle changes that he feels have positively impacted his blood pressure. I encouraged him to continue these healthy li festyle changes. He will continue his current medication regimen of amlodipine 5 mg daily, hydrochlorothiazide 50 mg daily. If he were to have blood pressure problems in the future, would consider increasing his amlodipine dose. We will plan for follow-up in 6 months. Other orders - Family Medicine office visit (clinic) - Family Medicine office visit (clinic); Future; Expected date: 02/28/2020 - Primary Care nurse visit (clinic) - [facility]; Immunization; Future; Expected date: 09/28/2019 Associated attestation - Raul Dunlap D.O. - 09/29/2019 7:28 AM CDT I saw and evaluated the patient, participating in the og portions of the service. I reviewed the resident/fellow???s note. I agree with the resident/fellow???s findings and plan. documented in this encounter Miscellaneous Notes Assessment & Plan Note - Lexus Fowler M.D., M.P.H. - 09/28/2019 4:43 PM CDTAssociated Problem(s): Maintenance Health Adult At this time he is due for hepatitis B vaccine. We planned to give it today, however at the end of the visit we forgot, and he left prior to receiving the vaccine. I sent him a message, and ordered a nurse only visit so he can get it done at his convenience. He also asked if he was due for his next colonoscopy, we reviewed the current guidelines for screening up to the age of 75. However, he is otherwise healthy, and if he wishes to pursue an additional colonoscopy, I would order this for him. He will let me know if he would like this ordered. Assessment & Plan Note - Lexus Fowler M.D., M.P.H. - 09/28/2019 4:42 PM CDTAssociated Problem(s): Hypertension Essential Primary His blood pressure today was 125/64, and was well controlled. He reports that this is consistent home, he checks his blood pressure twice a day with home cuff. He has recently made lifestyle changes that he feels have positively impacted his blood pressure. I encouraged him to continue these healthy [facility]. He will continue his current medication regimen of amlodipine 5 mg daily, hydrochlorothiazide 50 mg daily. If he were to have blood pressure problems in the future, would consider increasing his amlodipine dose. We will plan for follow-up in 6 months. Assessment & Plan Note - Lexus Fowler M.D., M.P.H. - 09/28/2019 4:41 PM CDTAssociated Problem(s): Diabetes Mellitus Type 2 With Diabetic Neuropathy (HCC) Is currently well controlled, and has even made recent dietary changes. [place] D5 for Diabetes: 1. Blood pressure (<140/90): 125/64, at goal 2. Taking a statin as recommended: On Crestor, at goal 3. A1c <8%: 6.5 at goal 4. Tobacco use: No use, at goal 5. Take ASA as recommended: On a baby aspirin He also requested a prescription for DME diabetic shoes and insoles, I provided this for him today. documented in this encounter Plan of Treatment Scheduled Referrals Name Type Priority Associated Order Schedule Diagnoses Family Medicine Outpatient Referral Routine Expec margoth: office visit (clinic) 2019 (Approximate), Expires: 09/27/2022 Primary Care nurse Outpatient Referral Routine Ex pected: visit (clinic) - 09/28/2019 [facility]; (Approxima te), Immunization Expires: 09/27/2022 documented as of this encounter Results (ABNORMAL) Hemoglobin A1c (02/12/2020 [...] Organization Address City/State/ZIP Code Phon e Number [facility] - [address] [place] [phone] [facility] [address] [facility] 200 [facility] documented in this encounter Visit Diagnoses Diagnosis Diabetes Mellitus Type 2 With Diabetic N europathy (HCC) - Primary Hypertension Essential Primary documented in this encounter Care Teams Safety Relief Valve Technician Relationship Specialty Start Date End Date Lexus Fowler M.D., M.P.H. PCP - General 11/14/18 11/13/[address] [place] [address] documented as of this encounter
--- OUTSIDE RECORDS SUMMARY | 2022-02-03 15:07 | XMS_ITS | Encounter Summary ---
:[address] [facility] Address [address] [place] [address] Care Team Providers Name Role Phone Lexus Fowler M.D., M.P.H. Primary Care Provider [phone] Reason for Visit Reason Comments COVID Inquiry Encounter Details Date Type Department Care Team Description 09/27/2019 Clinical Communication Department of Lexus Fowler Family MedicineMaikol M.D., M.P.H. [facility] [address] [facility] [address] [address] [facility] [phone] [place], [place] (Work) [address] [phone] Social History Tobacco Use Types Packs/Day Years [...] 10/29/2020 relatives? How often do you attend sikhism or pentecostalism services? Patien t refused 10/29/2020 Do you belong to any clubs or organizations such as Nabil borrero sikhism groups, unions, fraternal or athletic groups, or [...] this encounter Miscellaneous Notes Telephone Encounter - Arti Salgado - 09/27/2019 1:03 PM CDT 1. In the past 14 days, have you been tested for COVID-19 with a positive or pending result? no 2. In the past 14 days, do you, anyone in the household, or anyone you have had prolonged exposure have (any of the following)? a. Fever = 38.0 C (100.5 F) lasting 24 hours? no b. New symptoms (Specifically: cough, shortness of breath, respiratory distress, sore throat, diarrhea, chills, myalgia's (muscle aches), loss of smell, or change or loss of taste sensation)? no c. Had close contact with persons who are under quarantine or isolation for COVID? no d. Had close contact with a patient with known or possible COVID-19? no documented in this encounter Plan of Treatment Not on filedocumented as of this encounter Visit Diagnoses Not on filedocumented in this encounter Care Teams Subassembler Relationship Specialty Start Date End Date Lexus Fowler M.D., M.P.H. PCP - General 11/14/18 11/13/21 [address] [place] [address] documented as of this encounter
--- OUTSIDE RECORDS SUMMARY | 2022-02-03 15:07 | XMS_ITS | Encounter Summary ---
:1940 Author Organization [facility] Address [address] [place] [address] Care Team Providers Name Role Phone Lexus Fowler M.D., M.P.H. Primary Care Provider [phone] Reason for Visit Reason Comments Appointment Encounter Details Date Type Department Care Team Description 09/25/2019 Clinical Communication Department of [facility] Marlen Fowler, Appointment Medicine, Estiven Gupta, M.P.H. [facility] [address] [place] [address] 411 [facility] [place] [address] Social History Tobacco Use Types [...] How often do you attend episcopal or gnosticist services? Patien t refused 10/29/2020 Do you belong to any clubs or organizations such as Not jelani d episcopal groups, unions, fraternal or athletic groups, [...] Telephone Encounter - Marshal Martínez R.N. - 09/25/2019 2:41 PM CDT SUBJECTIVE CHIEF COMPLAINT / REASON FOR CALL Appointment Information Discussed Patient was contacted and informed that Dr. Fowler has placed and order to have his Hemoglobin A1c checked as well as to have an office visit to check blood pressure. At the time of the appointment theycan also examine his psoriasis and determine if we can treat it or if he will need a referral to dermatology. Patient was in agreement with this plan. He asked if he needs to wear a mask to the appointment. He was informed that we require a mask, but if he does not have one, we will provide one for him at the door. Patient was informed that our appointment desk would be contacting him to set-up this appointment. PLAN Disposition/Recommendation: Appointment desk to contact patient to set-up appointments. Information/Education: patient/caller able to teach back Caller agreeable to plan of care: yes The following references were used: nursing clinical judgement Telephone Encounter - Lexus Fowler M.D., M.P.H. - 09/25/2019 2:07 PM CDT Please call Mr. Vazquez back and let him know that I ordered an A1c. We had also discussed seeing him in6 months (from his last visit in february) to follow up on his blood pressure. So he is due for a visit now. He should schedule that appointment, at which time we can check his A1c, blood pressure, and take a look at his psoriasis to see if we can help or if he needs further management from Dermatology. I am not sure the portal is a good way to get a hold of him as he originally called in. Thank you, Marylin Fowler Telephone Encounter - Shashi Doan - 09/25/2019 8:55 AM CDT Caller: Vinayak Relationship to Patient:Self Callback Number:[phone] Pharmacy:NA Request/Details:Calling today stating he thinks he should be due for a A1C check. Also states he haspsoriasis on his face and had it looked at about a year ago with recommended to use OTC cream but ithasn't worked. Wondering if he can get a referral to derm for this. Please advise Thank you Please respond to [facility] RENEE GASPAR Scheduling pool if necessary documented in this encounter Plan of Treatment Not on filedocumented as of this encounter Visit Diagnoses Not on filedocumented in this encounter Care Teams Collator Relationship Specialty Start Date End Date Lexus Fowler M.D., M.P.H. PCP - General 11/14/18 11/13/21 [address] [place] [address] documented as of this encounter
--- OUTSIDE RECORDS SUMMARY | 2022-02-03 15:07 | XMS_ITS | Encounter Summary ---
:[address] [facility] Address [address] [place] [address] Care Team Providers Name Role Phone Lexus Fowler M.D., M.P.H. Primary Care Provider Encounter Details Date Type Department Care Team Description 03/10/2019 Hospital Encounter Department of Lexus Fowler rtension Laboratory Medicine Alonso Lassiter, M.P .H. Essential Primary in [address] [facility] [address] [place], [place] [phone] [address] (Work) [phone] Social History Tobacco Use Types Packs/Day Years [...] How often do you attend alevism or voodoo services? Patien t refused 10/29/2020 Do you belong to any clubs or organizations such as Not aske d alevism groups, unions, fraternal or athletic groups, [...] Take 1 tablet (5 90 tablet 3 02/1503/20/2019 tabletIndications: mg total) by Hypertension Essential mouth [...] With Diabetic Neuropathy times a day. ([facility]) [employer] Networks[employer]CH ULTRA BLUE TEST daily. for 3 01/07/2018 08/16/2020 STRIP strips testing rosuvastatin (CRESTOR) 10 Take 1 tablet (10 100 tablet 3 05/23/2019 mg tabletIndications: mg total) by Hyperlipidemia mouth daily. documented as of this encounter Plan of Treatment Not on filedocumented as of this encounter Procedures Procedure Name Priority Date/Time Associated Diagnosis Comme nts SODIUM, S/P Routine 03/10/2019 10:44 Hypertension Results for this AM CDT Essential Primary procedure are in the results section. POTASSIUM, S/P Routine 03/10/2019 10:44 Hypertension Results f or this AM CDT Essential Primary procedure are in the results section. CREATININE WITH Routine 03/10/2019 10:44 Hypertension Results for this EGFR, S/P AM CDT Essential Primary procedure are in the results section. documented in this encounter Results (ABNORMAL) Creatinine with Estimated GFR (03/10/2019 10:44 AM CDT) P athologist Signature Creatinine 1.25 0.74 - 03/10/2019 [facility] 1.35 mg/dL 11:18 AM CDT eGFR-Black/Afric 63 >=60 03/10/2019 [facility] an [place] mL/min/BSA 11:18 AM CDT Comment: ----ADDITIONAL INFORMATION---- Estimated GFR calculated using the 2009 CKD_EPI creatinine equation. eGFR Non-Black/ 54 (L) >=60 mL/min/BSA 03/10/2019 11:18 AM CDT [facility] [place] Comment: ----ADDITIONAL INFORMATION---- Estimated GFR calculated using the 2009 CKD_EPI creatinine equation. Specimen Anatomical Collection Method Collection Time Receive d Time (Source) Location / / Volume Laterality Blood (Blood, 03/10/2019 10:44 03/10/2019 Venous) AM CDT 10:44 AM CDT Lexus Fowler M.D., M.P.H. LAB BLOOD ADD-ON Performing Organization Address City/[facility]/ZIP Code Phon e Number [facility] [address] [place] [address] [place] [address] 411 [facility] Sodium (03/10/2019 10:44 AM CDT) P athologist Signature Sodium, P 139 135 - 145 03/10/2019 [facility] mmol/L 11:18 AM CDT Specimen Anatomical Collection Method Collection Time Receive d Time (Source) Location / / Volume Laterality Blood (Blood, 03/10/2019 10:44 03/10/2019 Venous) AM CDT 10:44 AM CDT Lexus Fowler M.D., M.P.H. LAB BLOOD ADD-ON Performing Organization Address City/[facility]/ZIP Code Phon e Number [facility] [address] [place] [address] [facility] [place] [phone] [place] [address] Potassium (03/10/2019 10:44 AM CDT) P athologist Signature Potassium, P 4.8 3.6 - 5.2 03/10/2019 [facility] mmol/L 11:18 AM CDT Specimen Anatomical Collection Method Collection Time Receive d Time (Source) Location / / Volume Laterality Blood (Blood, 03/10/2019 10:44 03/10/2019 Venous) AM CDT 10:44 AM CDT Lexus Fowler M.D., M.P.H. LAB BLOOD ADD-ON Performing Organization Address City/[facility]/ZIP Code Phon e Number [facility] [address] [place] [address] [place] [address] 411 [facility] documented in this encounter Visit Diagnoses Diagnosis Hypertension Essential Primary documented in this encounter Care Teams Guard Range Relationship Specialty Start Date End Date Lexus Fowler M.D., M.P.H. PCP - General 11/14/18 11/13/21 [address] [place] [phone] documented as of this encounter
--- OUTSIDE RECORDS SUMMARY | 2022-02-03 15:07 | XMS_ITS | Encounter Summary ---
:1940 Author Organization [facility] Address [address] [place] [address] Care Team Providers Name Role Phone Lexus Fowler M.D., M.P.H. Primary Care Provider [phone] Encounter Details Date Type Department Care Team Description 10/02/2019 Ancillary Procedure Department of Orthopedic Surgery Social History Tobacco Use Types Packs/Day Years [...] 10/29/2020 relatives? How often do you attend mosque or roman catholic services? Patien t refused 10/29/2020 Do you belong to any clubs or organizations such as Nabil borrero mosque groups, unions, fraternal or athletic groups, or [...] Procedure Name Priority Date/Time Associated Comments Diagnosis ORTHOPEDIC SURGERY Routine 10/02/2019 1:35 PM Res ults for this IMAGE EXAM CDT procedure are i n the results section. documented in this encounter Results Feet 529-Orthopedic Surgery Image Exam (10/02/2019 1:35 PM CDT) Specimen (Source) Anatomical Collection Method Collection Time Re ceived Time Location / / Volume Laterality 10/02/2019 1:35 PM CDT Narrative [facility] - 10/02/2019 1:37 PM CDT This order has been created [...] on filedocumented in this encounter Care Teams Gate Shear Operator Relationship Specialty Start Date End Date Lexus Fowler M.D., M.P.H. PCP - General 11/14/18 11/13/21 [address] [place] [address] documented as of this encounter
--- OUTSIDE RECORDS SUMMARY | 2022-02-03 15:07 | XMS_ITS | Encounter Summary ---
:1940 Author Organization [facility] Address [address] [place] [address] Care Team Providers Name Role Phone Lexus Fowler M.D., M.P.H. Primary Care Provider Reason for Visit Reason Onset Date Comments Med Refill Med Refill 05/23/2019 Encounter Details Date Type Department Care Team Description 05/23/2019 Refill Department of [facility] Med Alvarez, Med Refill; Med Refill Medicine, [facility] Alonso [facility], in [address] [place] [address] [address] [facility] [address] [place] [address] [phone] Social History Tobacco Use Types Packs/Day Years [...] How often do you attend gnosticist or restorationism services? Patien t refused 10/29/2020 Do you [...] Hyperlipidemia documented in this encounter Care Teams Paleontology Teacher Relationship Specialty Start Date End Date Lexus Fowler M.D., M.P.H. PCP - General 11/14/18 11/13/21 [address] [place] [address] documented as of this encounter
--- OUTSIDE RECORDS SUMMARY | 2022-02-03 15:07 | XMS_ITS | Encounter Summary ---
:1940 Author Organization [facility] Address [address] [place] [address] Care Team Providers Name Role Phone Lexus Fowler M.D., M.P.H. Primary Care Provider [phone] Encounter Details Date Type Department Care Team Description 03/08/2019 Hospital Encounter Department of Kristal Galeana Diabet es Mellitus Laboratory Medicine Alonso Type 2 (HCC) in [address] [id number] [phone] Social History Tobacco Use Types Packs/Day Years [...] 10/29/2020 relatives? How often do you attend druze or samaritan services? Patien t refused 10/29/2020 Do you belong to any clubs or organizations such as Not aske d druze groups, unions, fraternal or athletic groups, or [...] place to sleep or slept in a mcfp (including now)? Sex Assigned at Date Recorded [...] Take 1 capsule by 0 mouth daily. B-COMPLEX WITH VITAMIN C Take 1 tablet by 0 09/1602/14/2020 (VITAMIN B COMPLEX WITH C mouth daily. ORAL) docosahexaenoic acid/epa Take 1 capsule by 0 07/0 06/200902/14/2020 (FISH OIL ORAL) mouth. hydroCHLOROthiazide TAKE 1 TABLET BY 90 tablet 3 01/18/2019 03/10/2019 (HYDRODIURIL) 50 mg tablet MOUTH DAILY losartan (COZAAR) 100 mg TAKE 1 TABLET BY 90 tablet 3 01/1803/10/2019 tablet MOUTH DAILY metFORMIN (GLUCOPHAGE) 500 TAKE 1 TABLET BY 180 tablet 3 08/201803/10/2019 mg tablet MOUTH TWO TIMES DAILY ONETOUCH ULTRA BLUE TEST daily. for 3 01/07/2018 08/16/2020 STRIP strips testing rosuvastatin (CRESTOR) 10 Take 1 tablet (10 100 tablet 3 03/10/2019 mg tablet mg total) by mouth daily. documented as of this encounter Miscellaneous Notes Result Encounter Note - Lexus Fowler M.D., M.P.H. - 03/08/2019 9:10 AM CDT Dear Mr. Vazquez, The results of your labs tests have returned. Your Prostate Specific Antigen (PSA) is within normal limits. Your A1c is 6.6, indicating continued excellent control of your diabetes. We will repeat A1c in 6 months time. If you have any questions, we can discuss further at your appointment with me tomorrow. Sincerely, Lexus Fowler MD, MPH documented in this encounter Plan of Treatment Not on filedocumented as of this encounter Procedures Procedure Name Priority Date/Time Associated Comments Diagnosis PROSTATE-SPECIFIC AG Routine 03/08/2019 8:40 AM Diabetes Melli tus Results for this (PSA) DIAGNOSTIC, S CDT Type 2 (HCC) procedur e are in the results section. HEMOGLOBIN A1C, B Routine 03/08/2019 8:40 AM Diabetes Mellitus Results for this CDT Type 2 (HCC) procedure are i n the results section. documented in this encounter Results PSA (Prostate-Specific Antigen), Diagnostic (03/08/2019 8:40 AM CDT) P athologist Signature Prostate-Specif 0.76 <=6.5 ng/mL 03/08/2019 DTL ic Ag 2:17 PM CDT Comment: ----ADDITIONAL INFORMATION---- The testing method is an electrochemilum inescence assay manufactured by [employer] and performed on the [employer]) or Zhang system . Values obtained with different assay met hods or kits may be different and cannot be used inte rchangeably. Test results cannot be interpreted as ab solute evidence for the presence or absence of malignant disease. Specimen Anatomical Collection Method Collection Time Receive d Time (Source) Location / / Volume Laterality Blood (Blood, 03/08/2019 8:40 AM 03/08/20 Venous) CDT 12:21 PM CDT Kristal Galeana M.D. LAB BLOOD ADD-ON Performing Organization Address City/[facility] Phon e Number [facility] - [address] [place], [place] [address] [facility] [place] [address] Laboratories-[address] (ABNORMAL) Hemoglobin A1c (03/08/2019 8:40 AM CDT) P athologist Signature Hemoglobin A1c, 6.6 (H) 4.0 - 5.6 03/08/2019 DTL B % 12:46 PM CDT Comment: Hemoglobin A1c values greater than or eq ual to 6.5 percent are diagnostic for diabetes mellitus. ?? Diagnosis should be confirmed by repeat testing. ??In diabet ic patients, HbA1c goals should be discussed with healthcar e provider. Specimen Anatomical Collection Method Collection Time Receive d Time (Source) Location / / Volume Laterality Blood (Blood, 03/08/2019 8:40 AM 03/08/20 Venous) CDT 12:21 PM CDT Kristal Galeana M.D. LAB BLOOD ADD-ON Performing Organization Address City/[facility] Phon e Number [facility] - 200 [place], [place] [address] [facility] [place] [address] documented in this encounter Visit Diagnoses Diagnosis Diabetes Mellitus Type 2 (HCC) documented in this encounter Care Teams Manufacturing Production Technician Relationship Specialty Start Date End Date Lexus Fowler M.D., M.P.H. PCP - General 11/14/18 11/13/21 [address] [place] [address] documented as of this encounter
--- OUTSIDE RECORDS SUMMARY | 2022-02-03 15:07 | XMS_ITS | Encounter Summary ---
:1940 Author Organization [facility] Address [address] [place] [address] Care Team Providers Name Role Phone Lexus Fowler M.D., M.P.H. Primary Care Provider [phone] Reason for Visit Reason Comments COVID Nurse Line Encounter Details Date Type Department Care Team Description 09/30/2019 Clinical Communication Department of Roslyn Veliz CO VID Nurse Line Orthopedic Surgery BURNING SUPERVISOR, C.N.P. in [place], [facility] [address] [place], [place] [address] [place] [address] [place], [place] [phone] (Work) [phone] Social History Tobacco Use Types Packs/Day Years [...] How often do you attend druze or zoroastrianism services? Patien t refused 10/29/2020 [...] this encounter Miscellaneous Notes Telephone Encounter - Shahab Cui - 09/30/2019 12:08 PM CDT 1. In the past 14 [...] on filedocumented in this encounter Care Teams Public [place] Attendant Relationship Specialty Start Date End Date Lexus Fowler M.D., M.P.H. PCP - General 11/14/18 11/13/21 [address] [place] [address] documented as of this encounter
--- OUTSIDE RECORDS SUMMARY | 2022-02-03 15:07 | XMS_ITS | Encounter Summary ---
:1940 Author Organization [facility] Address [address] [place] [address] Care Team Providers Name Role Phone Lexus Fowler M.D., M.P.H. Primary Care Provider [phone] Encounter Details Date Type Department Care Team Description 03/08/2019 Hospital Encounter Department of Kristal Galeana Diabet es Mellitus Laboratory Medicine Alonso Type 2 (HCC) in [address] [id number] [phone] Social History Tobacco Use Types Packs/Day Years [...] How often do you attend methodist or presybeterian services? Patien t refused 10/29/2020 Do you belong to any clubs or organizations such as Not aske d methodist groups, unions, fraternal or athletic groups, [...] Diagnosis Comme nts ALBUMIN, RANDOM, U Routine 03/08/2019 8:47 AM Diabetes Mellitu s Results for this CDT Type 2 (HCC) procedure are i n the results section. documented in this encounter Results (ABNORMAL) Microalbumin, Random, Urine (03/08/2019 8:47 AM CDT) P athologist Signature Microalbumin 13.2 mg/L 03/08/2019 POWER 1:44 PM CDT Comment: ----ADDITIONAL INFORMATION---- This test has been modified from the valentin marionr's instructions. Its performance characteri stics were determined by [facility] in a manner co nsistent with CLIA requirements. This test has not bee n cleared or approved by the U.S. Food and Drug Admin istration. Creatinine 78 mg/dL 03/08/2019 6:57 PM CDT POWER Albumin/Creatinine Ratio 17 (H) <17 mg/g 03/08/2019 6:57 PM CDT POWER Specimen Anatomical Collection Method Collection Time Receive d Time (Source) Location / / Volume Laterality Urine (Urine, 03/08/2019 8:47 AM 03/08/20 19 1:15 Clean Catch) CDT PM CDT Kristal Galeana M.D. LAB URINE ORDERABLES Performing Organization Address City/State/ZIP Code Phon e Number [facility] - [address] [place], [place] [address] [facility] [place] [address] Laboratories-[facility] [address] documented in this encounter Visit Diagnoses Diagnosis Diabetes Mellitus Type 2 (HCC) documented in this encounter Care Teams Stringing Machine Operator Relationship Specialty Start Date End Date Lexus Fowler M.D., M.P.H. PCP - General 11/14/18 11/13/21 [address] [place] [address] documented as of this encounter
--- OUTSIDE RECORDS SUMMARY | 2022-02-03 15:07 | XMS_ITS | Encounter Summary ---
:1940 Author Organization [facility] Address [address] [place] [address] Care Team Providers Name Role Phone Lexus Fowler M.D., M.P.H. Primary Care Provider [phone] Reason for Visit Reason Comments Triage Encounter Details Date Type Department Care Team Description 08/16/2019 Clinical Communication Department of Vascular [facility] V[facility]la[facility] [address] [phone] Social History Tobacco Use Types Packs/Day Years [...] 10/29/2020 relatives? How often do you attend zoroastrian or anabaptist services? Patien t refused 10/29/2020 Do you belong to any clubs or organizations such as Nabil borrero zoroastrian groups, unions, fraternal or athletic groups, or [...] this encounter Miscellaneous Notes Telephone Encounter - Adilene Johansen - 08/16/2019 1:37 PM CDT Notified saulo Telephone Encounter - Jaelyn Varela M.D. - 08/16/2019 12:32 PM CDT WOUND CARE TRIAGE: Decision (Choose one): Not urgent Justification:DFU see by Podiatry to reduce his callus. He has prescription footwear. Photo on Qreads Type of visit required: Face to face Tests/consultations required PRIOR to the visit: Tests/consultations required AFTER the visit (may be cancelled if not needed): 1. Noninvasive arterial studies Telephone Encounter - Adilene Johansen - 08/16/2019 9:25 AM CDT Please review the patient's request for an appointment. Identify if patient is considered Urgent, Semi-Urgent or Elective, and if they would qualify for a virtual/phone visit. Please place any orders that are pertinent to the patient's visit. Referral Source: Internal: Roslyn Veliz APRN, C.N.P. Imaging in Qreads: Yes Records available in chart: Yes Document Viewer Indication/Clinical Question: Neuropathic / Diabetic foot ulcer Notes: ortho is referring Saulo [phone] Please route all to the [facility] SCHEDULING pool upon response to this message. documented in this encounter Plan of Treatment Not on filedocumented as of this encounter Visit Diagnoses Not on filedocumented in this encounter Care Teams Shoe Puller Relationship Specialty Start Date End Date Lexus Fowler M.D., M.P.H. PCP - General 11/14/18 11/13/21 [address] [place] [address] documented as of this encounter
--- OUTSIDE RECORDS SUMMARY | 2022-02-03 15:07 | XMS_ITS | Encounter Summary ---
:1940 Author Organization [facility] Address [address] [place] [address] Care Team Providers Name Role Phone Lexus Fowler M.D., M.P.H. Primary Care Provider [phone] Encounter Details Date Type Department Care Team Description 08/16/2019 Ancillary Procedure Department of Orthopedic Surgery Social [...] 10/29/2020 relatives? How often do you attend christian or hinduism services? Patien t refused 10/29/2020 Do you belong to any clubs or organizations such as Nabil borrero christian groups, unions, fraternal or athletic groups, or [...] Date/Time Associated Comments Diagnosis ORTHOPEDIC SURGERY Routine 08/16/2019 9:00 AM Res ults for this IMAGE EXAM CDT procedure are i n the results section. documented in this encounter Results Feet 529-Orthopedic Surgery Image Exam (08/16/2019 9:00 AM CDT) Specimen (Source) Anatomical Collection Method Collection Time Re ceived Time Location / / Volume Laterality 08/16/2019 9:00 AM CDT Narrative [facility] - 08/16/2019 9:02 AM CDT This order has been created [...] on filedocumented in this encounter Care Teams [place] Burner Operator Relationship Specialty Start Date End Date Lexus Fowler M.D., M.P.H. PCP - General 11/14/18 11/13/21 [address] [place] [address] documented as of this encounter
--- OUTSIDE RECORDS SUMMARY | 2022-02-03 15:07 | XMS_ITS | Encounter Summary ---
:1940 Author Organization [facility] Address [address] [place] [address] Care Team Providers Name Role Phone Lexus Fowler M.D., M.P.H. Primary Care Provider [phone] Encounter Details Date Type Department Care Team Description 09/26/2019 Hospital Encounter Department of Lexus Fowler Diab etes Mellitus Laboratory Medicine Alonso Lassiter, M.P .H. Type 2 With in [address] Diabetic Neuropathy [place], [place] ([facility]LY [facility]) [address] [facility] [address] [place], [place] [phone] (Work) [phone] Social History Tobacco Use Types Packs/Day Years [...] 10/29/2020 relatives? How often do you attend baptist or christianity services? Patien t refused 10/29/2020 Do you belong to any clubs or organizations such as Nabil borrero baptist groups, unions, fraternal or athletic groups, or [...] acid/epa Take 1 capsule by 0 07/0 06/20092020 (FISH OIL ORAL) mouth. hydroCHLOROthiazide Take 1 [...] With Diabetic Neuropathy times a day. ([facility]) ONETOUCH ULTRA BLUE TEST daily. for 3 01/07/2018 08/16/2020 STRIP strips testing rosuvastatin (CRESTOR) 10 Take 1 tablet (10 100 tablet 3 11/201902/14/2020 mg tabletIndications: mg total) by Hyperlipidemia mouth daily. documented as of this encounter Plan of Treatment Not on filedocumented as of this encounter Procedures Procedure Name Priority Date/Time Associated Diagnosis Comme nts HEMOGLOBIN A1C, B Routine 09/26/2019 8:34 AM Diabetes Mellitus Results for this CDT Type 2 With Diabetic procedu re are in Neuropathy (HCC) the results section. 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 PCP - General 11/14/18 11/13/[address] [place] [address] documented as of this encounter
--- OUTSIDE RECORDS SUMMARY | 2022-02-03 15:07 | XMS_ITS | Encounter Summary ---
:1940 Author Organization [facility] Address [address] [place] [address] Care Team Providers Name Role Phone Lexus Fowler M.D., M.P.H. Primary Care Provider Encounter Details Date Type Department Care Team Description 10/05/2019 Clinical Communication Department of [facility] Marlen Fowler, [facility], Estiven Gupta, M.P.H. [facility] [address] [place] [phone] [place] [address] [place] [address] Social History Tobacco Use Types [...] How often do you attend restorationism or cheondoism services? Patien t refused 10/29/2020 Do you belong to any clubs or organizations such as Not aske d restorationism groups, unions, fraternal or athletic groups, [...] this encounter Miscellaneous Notes Telephone Encounter - Zoey Dc - 10/05/2019 1:00 PM CDT 1. Do you have a pending COVID test because you had symptoms or exposure to someone with COVID or you have tested positive for COVID in the last 30 days? no 2. In the past 14 days, do you, anyone in the household, or anyone you have had prolonged exposure have any of the following? a. Fever = 38.0 C (100.5 F) lasting 24 hours? no b. New symptoms (Specifically: headache, cough, shortness of breath, respiratory distress, sore throat, diarrhea, nausea, vomiting, chills and repeated shaking with chills, myalgia's (muscle aches), loss of smell, or change or loss of taste sensation)? no c. Had close contact with a patient with known or possible COVID-19 in the last 14 days? no Route reply to: CHRISTOPHER SOLIS SCHEDULING Scheduling Contact Number: [phone] documented in this encounter Plan of Treatment Not on filedocumented as of this encounter Visit Diagnoses Not on filedocumented in this encounter Care Teams Configuration Developer Relationship Specialty Start Date End Date Lexus Fowler M.D., M.P.H. PCP - General 11/14/18 11/13/21 [address] [place] [address] documented as of this encounter
--- OUTSIDE RECORDS SUMMARY | 2022-02-03 15:07 | XMS_ITS | Encounter Summary ---
:1940 Author Organization [facility] Address [address] [place] [address] Care Team Providers Name Role Phone Lexus Fowler M.D., M.P.H. Primary Care Provider [phone] Reason for Visit Reason Comments Diabetes Outpatient (Routine) - Closed Specialty Diagnoses / Procedures Referred By Contact Refer red To Contact Family Medicine Kristal Galeana M.D. [address] [place] [address] Referral ID Status Reason Start Date Expiration Date Visits Requ ested Visits Authorized [id number] Closed 09/22/2018 09/22/2019 1 1 Encounter Details Date Type Department Care Team Description 03/10/2019 Office Visit Department of Family Lexus Fowler, Diabetes 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, M.P.H. Hypertension Essential Primary; Family Clinic [address] [place] [address] Hyperlipidemia; brandon Hernandez [facility] [address] [address] [facility] [place] [address] Social History Tobacco Use Types [...] 10/29/2020 relatives? How often do you attend voodoo or pentecostalism services? Patien t refused 10/29/2020 Do you belong to any clubs or organizations such as Nabil borrero voodoo groups, unions, fraternal or athletic groups, or [...] Sign Reading Time Taken Comments Blood Pressure 148/68 03/10/2019 9:40 AM CDT Pulse 58 03/10/2019 9:40 AM CDT Temperature - - Respiratory Rate - - Oxygen Saturation - - Inhaled Oxygen Concentration - - Weight 94.1 kg (207 lb 7.3 oz) 03/10/2019 9:40 AM CDT Height - - Body Mass Index 28.88 09/22/2018 1:36 PM CDT documented in this encounter Patient Instructions Patient InstructionsLexus Fowler M.D., M.P.H. - 03/10/2019 9:45 AM CDT Please check your blood pressures at home - Start taking 5 mg amlodipine - If they are over 140/90, please let me know, we can adjust your medication (measure blood pressures for 2 weeks. If nine out of ten times the blood pressure is lower than this value, that is ok, you don't need to contact me. - we will likely decrease your hydrochlorothiazide at your next appointment documented in this encounter Progress Notes Lexus Fowler M.D., M.P.H. - 03/10/2019 9:45 AM CDT SUBJECTIVE CHIEF COMPLAINT / REASON FOR VISIT Vinayak Vazquez is a 78 y.o. male who presents for evaluation of No chief complaint on file.. HISTORY OF PRESENT ILLNESS Mr. Vazquez is a 78-year-old man past medical history diabetes type 2, hypertension, hyperlipidemia, elevated PSA who presents today for follow-up his diabetes. He reports overall he is feeling well, and has no complaints today. He was recently seen by Podiatryon 03/06/2019, they performed a foot exam at that time. He is leaving for [facility] for the winter tomorrow, and would like refills of all his medications today. He reports that he has no headaches or vision changes. He has a blood pressure cough at home, thoughhe does not measure it regularly. He does report checking his blood sugars daily. He also wished to go over his lab results from 2 days ago. He is taking all his medications as prescribed. He took his blood pressure medications this morning prior to his appointment. The following portions of the patient's history were reviewed and updated as appropriate: allergies,current medications, family history, medical history and problem list. OBJECTIVE Current Outpatient Medications: ??? ascorbic acid, vitamin C, (ascorbic acid with lacey hips) 500 mg tablet, Take 1 tablet by mouth at bedtime., Disp: , Rfl: ??? ASPIRIN LOW DOSE ORAL, Take 1 capsule by mouth daily., Disp: , Rfl: ??? B complex-vitamin (SUPER B-50) capsule, Take 1 tablet by mouth., Disp: , Rfl: ??? B-COMPLEX WITH VITAMIN C (VITAMIN B COMPLEX WITH C ORAL), Take 1 tablet by mouth daily., Disp: ,Rfl: ??? calcium carbonate-vitamin D3 (CALCIUM 600 + D,3,) 1,500 mg (600 mg calcium)- 400 unit per tablet,Take 1 tablet by mouth 2 (two) times a day., Disp: , Rfl: ??? DOCOSAHEXANOIC ACID/EPA (FISH OIL ORAL), Take 1 capsule by mouth 2 (two) times a day. 1200 mg capsule, Disp: , Rfl: ??? garlic capsule, Take 1 capsule by mouth daily. 1200 mg, Disp: , Rfl: ??? hydroCHLOROthiazide (HYDRODIURIL) 50 mg tablet, Take 1 tablet (50 mg total) by mouth daily., Disp: 90 tablet, Rfl: 3 ??? ketoconazole (NIZORAL) 2 % shampoo, Apply topically as directed. Wash as directed; shampoo twicea week for four weeks, then use intermittently., Disp: , Rfl: ??? losartan (COZAAR) 100 mg tablet, Take 1 tablet (100 mg total) by mouth daily., Disp: 90 tablet, Rfl: 3 ??? metFORMIN (GLUCOPHAGE) 500 mg tablet, Take 1 tablet (500 mg total) by mouth 2 (two) times a day., Disp: 180 tablet, Rfl: 3 ??? MULTIVITAMIN (MULTIPLE VITAMINS ORAL), Take 1 tablet by mouth daily., Disp: , Rfl: ??? ONETOUCH ULTRA BLUE TEST STRIP strips, daily. for testing, Disp: , Rfl: 3 ??? rosuvastatin (CRESTOR) 10 mg tablet, Take 1 tablet (10 mg total) by mouth daily., Disp: 100 tablet, Rfl: 3 ??? vitamin E 400 unit capsule, Take 1 capsule by mouth daily., Disp: , Rfl: ??? amLODIPine (NORVASC) 5 mg tablet, Take 1 tablet (5 mg total) by mouth daily., Disp: 90 tablet, Rfl: 3 PHYSICAL EXAM Vitals: 03/10/19 0940 BP: 148/68 Pulse: (!) 58 General: Well appearing man in no apparent distress. Cardiovascular: Regular rate and rhythm, no murmurs, rubs, or gallops. Pulmonary: Clear to auscultation bilaterally, no wheezing, crackles, rales Abdomen: Bowel sounds normal. Soft, non-tender, non-distended. No guarding or rebound tenderness. Nohepatosplenomegaly. Skin: [place] and well perfused ASSESSMENT / PLAN #1 Diabetes Mellitus Type 2 With Diabetic Neuropathy (HCC) Assessment & Plan: Most recent A1c on 03/08/2019 is 6.6. Currently on metformin 500 mg b.i.d., taking a baby aspirin, Crestor 10 mg daily, losartan 100 mg daily, hydrochlorothiazide 50 mg daily. His blood pressure today is elevated, please see hypertension plan for further details. [place] D5 for Diabetes: 1. Blood pressure (<140/90): 145/70, not at goal 2. Taking a statin as recommended: On Crestor 10 mg daily, goal 3. A1c <8%: Most recent 6.6, ankle 4. Tobacco use: No tobacco use, at goal 5. Take ASA as recommended: Taking, at goal We will follow up in 6 months time when he returns from [place]. We will work on ensuring that his blood pressure is within goal range at that time. Orders: - Family Medicine office visit (clinic) - Self - metFORMIN (GLUCOPHAGE) 500 mg tablet; Take 1 tablet (500 mg total) by mouth 2 (two) times a day., Starting Wed03/10/2019, Normal - Family Medicine office visit (clinic); Future; Expected date: 09/09/2019 #2 Hypertension Essential Primary Assessment & Plan: His blood pressure today was 148/68, repeat measurement was not improved it was 145/70. He is currently taking losartan 100 mg daily, hydrochlorothiazide 50 mg daily. We reviewed that this is a very heavy dose of hydrochlorothiazide, but he has been tolerating it well. I am concerned about changing this medication right before he leaves and has no medical follow-up, as it could affect his potassium level. At this time to control his blood pressure, I think we should start amlodipine 5 mg daily. Thiswill be in addition to his other medications. When he returns for follow-up in 6 months, we will decrease his hydrochlorothiazide to 25 mg daily, with repeat electrolyte labs. I will also check his electrolytes today, as these were last checked on 09/02/2018. I asked him to record his blood pressures at home for 2 weeks at different times throughout the day. He will let me know if his blood pressure is still above 140/90, at which point I would increase his amlodipine. He was comfortable with this plan, all his questions were answered. I informed him that I would review the results of his labs today, and if there was anything concerning I would contact him. He did not require contact if his labs or within normal limits. He was comfortable with this plan. Orders: - hydroCHLOROthiazide (HYDRODIURIL) 50 mg tablet; Take 1 tablet (50 mg total) by mouth daily., Starting Wed03/10/2019, Normal - losartan (COZAAR) 100 mg tablet; Take 1 tablet (100 mg total) by mouth daily., Starting Wed03/10/2019, Normal - amLODIPine (NORVASC) 5 mg tablet; Take 1 tablet (5 mg total) by mouth daily., Starting Wed03/10/2019, Until 03/09/2020, Normal - Potassium; Future; Expected date: 03/10/2019 - Sodium; Future; Expected date: 03/10/2019 - Creatinine with Estimated GFR; Future; Expected date: 03/10/2019 #3 Hyperlipidemia Assessment & Plan: Currently on high dose statin, Crestor 10 mg daily. He will continue to take this medication as he is tolerating it well. Orders: - rosuvastatin (CRESTOR) 10 mg tablet; Take 1 tablet (10 mg total) by mouth daily., Starting Wed03/10/2019, Normal #4 Maintenance Health Adult Assessment & Plan: He is due for hepatitis B vaccine at this time, he would like to receive it today. This will be performed at the end of his visit. Orders: - HepB: hepatitis B vaccine (20 years and older) Associated attestation - Raul Dunlap D.O. - 03/16/2019 3:22 PM CDT I saw and evaluated the patient, participating in the og portions of the service. I reviewed the resident/fellow???s note. I agree with the resident/fellow???s findings and plan. documented in this encounter Miscellaneous Notes Assessment & Plan Note - Lexus Fowler M.D., M.P.H. - 03/10/2019 12:05 PM CDTAssociated Problem(s): Maintenance Health Adult He is due for hepatitis B vaccine at this time, he would like to receive it today. This will be performed at the end of his visit. Assessment & Plan Note - Lexus Fowler M.D., M.P.H. - 03/10/2019 12:04 PM CDTAssociated Problem(s): Hyperlipidemia Currently on high dose statin, Crestor 10 mg daily. He will continue to take this medication as he is tolerating it well. Assessment & Plan Note - Lexus Fowler M.D., M.P.H. - 03/10/2019 12:00 PM CDTAssociated Problem(s): Hypertension Essential Primary His blood pressure today was 148/68, repeat measurement was not improved it was 145/70. He is currently taking losartan 100 mg daily, hydrochlorothiazide 50 mg daily. We reviewed that this is a very heavy dose of hydrochlorothiazide, but he has been tolerating it well. I am concerned about changing this medication right before he leaves and has no medical follow-up, as it could affect his potassium level. At this time to control his blood pressure, I think we should start amlodipine 5 mg daily. Thiswill be in addition to his other medications. When he returns for follow-up in 6 months, we will decrease his hydrochlorothiazide to 25 mg daily, with repeat electrolyte labs. I will also check his electrolytes today, as these were last checked on 09/02/2018. I asked him to record his blood pressures at home for 2 weeks at different times throughout the day. He will let me know if his blood pressure is still above 140/90, at which point I would increase his amlodipine. He was comfortable with this plan, all his questions were answered. I informed him that I would review the results of his labs today, and if there was anything concerning I would contact him. He did not require contact if his labs or within normal limits. He was comfortable with this plan. Assessment & Plan Note - Lexus Fowler M.D., M.P.H. - 03/10/2019 7:42 AM CDTAssociated Problem(s): Diabetes Mellitus Type 2 With Diabetic Neuropathy (HCC) Most recent A1c on 03/08/2019 is 6.6. Currently on metformin 500 mg b.i.d., taking a baby aspirin, Crestor 10 mg daily, losartan 100 mg daily, hydrochlorothiazide 50 mg daily. His blood pressure today is elevated, please see hypertension plan for further details. [place] D5 for Diabetes: 1. Blood pressure (<140/90): 145/70, not at goal 2. Taking a statin as recommended: On Crestor 10 mg daily, goal 3. A1c <8%: Most recent 6.6, ankle 4. Tobacco use: No tobacco use, at goal 5. Take ASA as recommended: Taking, at goal We will follow up in 6 months time when he returns from [place]. We will work on ensuring that his blood pressure is within goal range at that time. documented in this encounter Plan of Treatment Not on filedocumented as of this encounter Results (ABNORMAL) Creatinine with Estimated GFR (03/10/2019 10:44 AM CDT) P athologist Signature Creatinine 1.25 0.74 - 03/10/2019 [facility] 1.35 mg/dL 11:18 AM CDT eGFR-Black/Afric 63 >=60 03/10/2019 [facility] an Lao mL/min/BSA 11:18 AM CDT Comment: ----ADDITIONAL INFORMATION---- Estimated GFR calculated using the 2009 CKD_EPI creatinine equation. eGFR Non-Black/ 54 (L) >=60 mL/min/BSA 03/10/2019 11:18 AM CDT [facility] Lao Comment: ----ADDITIONAL INFORMATION---- Estimated GFR calculated using the 2009 CKD_EPI creatinine equation. Specimen Anatomical Collection Method Collection Time Receive d Time (Source) Location / / Volume Laterality Blood (Blood, 03/10/2019 10:44 03/10/2019 Venous) AM CDT 10:44 AM CDT Lexus Fowler M.D., M.P.H. LAB BLOOD ADD-ON Performing Organization Address City/[facility]/ZIP Code Phon e Number [address] [address] [facility] [place], [place] [id number] [place] [address] Sodium (03/10/2019 10:44 AM CDT) P athologist Signature Sodium, P 139 135 - 145 03/10/2019 [facility] mmol/L 11:18 AM CDT Specimen Anatomical Collection Method Collection Time Receive d Time (Source) Location / / Volume Laterality Blood (Blood, 03/10/2019 10:44 03/10/2019 Venous) AM CDT 10:44 AM CDT Lexus Fowler M.D., M.P.H. LAB BLOOD ADD-ON Performing Organization Address City/[facility]/ZIP Code Phon e Number [address] [address] [place] [address] [place] [address] Potassium (03/10/2019 10:44 AM CDT) P athologist Signature Potassium, P 4.8 3.6 - 5.2 03/10/2019 [facility] mmol/L 11:18 AM CDT Specimen Anatomical Collection Method Collection Time Receive d Time (Source) Location / / Volume Laterality Blood (Blood, 03/10/2019 10:44 03/10/2019 Venous) AM CDT 10:44 AM CDT Lexus Fowler M.D., M.P.H. LAB BLOOD ADD-ON Performing Organization Address City/[facility]/ZIP Code Phon e Number [address] [address] [place] [address] [place] [address] documented in this encounter Visit Diagnoses Diagnosis Diabetes Mellitus Type 2 With Diabetic N europathy (HCC) - Primary Hypertension Essential Primary Hyperlipidemia Maintenance Health Adult documented in this encounter Care Teams Auto Body Repair Estimator Relationship Specialty Start Date End Date Lexus Fowler M.D., M.P.H. PCP - General 11/14/18 11/13/21 [address] [place] [address] documented as of this encounter
--- OUTSIDE RECORDS SUMMARY | 2022-02-03 15:07 | XMS_ITS | Encounter Summary ---
:1940 Author Organization [facility] Address [address] [place] [address] Care Team Providers Name Role Phone Lexus Fowler M.D., M.P.H. Primary Care Provider [phone] Encounter Details Date Type Department Care Team Description 10/03/2019 Clinical Communication Department of [facility] Duarte Veliz, Medicine, [facility], C.N. P. [facility], in [address] [place] [address] [address] [facility] [address] [place] [address] [phone] Social History Tobacco Use Types Packs/Day Years [...] How often do you attend synagogue or caodaism services? Patien t refused 10/29/2020 Do you belong to any clubs or organizations such as Not aske d synagogue groups, unions, fraternal or athletic groups, [...] Encounter - Lexus Fowler M.D., M.P.H. - 10/06/2019 1:58 PM CDT Hamzah, Thank you for the note. It appears he is seeing vascular medicine today, and they are ordering the work up. I will continue to follow. Thank you for your help with Mr. Vazquez. Marylin Fowler documented in this encounter Plan of Treatment Not on filedocumented as of this encounter Visit Diagnoses Not on filedocumented in this encounter Care Teams Technology Services Manager Relationship Specialty Start Date End Date Lexus Fowler M.D., M.P.H. PCP - General 11/14/18 11/13/21 [address] [place] [address] documented as of this encounter
--- OUTSIDE RECORDS SUMMARY | 2022-02-03 15:08 | XMS_ITS | Encounter Summary ---
:1940 Author Organization [facility] Address [address] [place] [address] Care Team Providers Name Role Phone Kristal Galeana M.D. Primary Care Provider Reason for Visit Reason Comments Med Refill Encounter Details Date Type Department Care Team Description 01/23/2018 Refill Department of Family Medicine, Kristal Keith M.D. Med Refill [address] [place] [address] [place] [address] [place] [address] [phone] Social History Tobacco Use Types Packs/Day Years Used Date Smoking Tobacco: Never Smokeless Tobacco: Never Alcohol Habits Answer Date Recorded How often [...] How often do you attend advent or hindu services? Patien t refused 10/29/2020 [...] on filedocumented in this encounter Care Teams Microfabrication Engineer Manager Relationship Specialty Start Date End Date Kristal Galeana M.D. PCP - General Family Medicine 01/19/18 11/13/18 documented as of this encounter
--- OUTSIDE RECORDS SUMMARY | 2022-02-03 15:08 | XMS_ITS | Encounter Summary ---
:1940 Author Organization [facility] Address [address] [place] [address] Care Team Providers Name Role Phone Kristal Galeana M.D. Primary Care Provider Reason for Referral Outpatient (Routine) - Closed Specialty Diagnoses / Procedures Referred By Contact Refer red To Contact Orthopedic Surgery Roslyn Veliz APRN, [place] C.N.PClarence [address] [place] [phone] Referral ID Status Reason Start Date Expiration Date Visits Requ ested Visits Authorized [id number] Closed 10/03/2018 10/03/2019 1 1 Reason for Visit Outpatient (Routine) - Closed Specialty Diagnoses / Procedures Referred By Contact Refer red To Contact Orthopedic Surgery Roslyn Veliz APRN, [place] C.N.P. [address] [place] [phone] Referral ID Status Reason Start Date Expiration Date Visits Requ ested Visits Authorized [id number] Closed 09/05/2018 09/05/2019 1 1 Encounter Details Date Type Department Care Team Description 10/03/2018 Procedure visit Department of Roslyn Veliz, Hypertrop hied Nail; Orthopedic Surgery ALEN, C.N.P. Diabetes Mellitus Type 2 With Diabetic N europathy (HCC); in [address] Callus [place], [place] [address] [place] [address] [place], [place] [phone] (Work) [phone] Social History Tobacco Use Types Packs/Day Years [...] How often do you attend denominational or mandaeism services? Patien t refused 10/29/2020 Do you [...] Progress Notes Roslyn Veliz, ALEN, C.N.P. - 10/03/2018 10:30 AM CDT SUBJECTIVE Pain reported: 0/10 CHIEF COMPLAINT / REASON FOR VISIT Vinayak Vazquez is a 78 y.o. male accompanied by his who presents for follow- up of calluses and pre ulcerative plantar calluses and is under the care of Kristal Galeana M.D.. HISTORY OF PRESENT ILLNESS Mr. Vazquez presents to the [facility] Pod[facility]ry [facility] with calluses on bilateral feet plantar surface. He states that he has his toenails taking care of in a salon and that they also work on his calluses. The patient wears New Balance shoes with [id number] inserts. He has had custom inserts from [employer], but states that these were more expensive and seem to work better. He and his return from [place] a few weeks ago. He states he was wearing flip-flops to the pool and developed a lesion on the right great toe plantar surface. He went back to wearing his new balance shoes and there has been steady improvement to in the right big toe. He now reports that he has obtain new shoes and ordered custom inserts which he will be receiving soon. His past medical history is significant for type 2 diabetes mellitus with neuropathy, callus and history of diabetic foot ulcer. Claudication: Negative Burning: Negative Paresthesias: Numbness in both feet right greater than left Active care for diabetes mellitus type 2: Last seen Dr. Kristal Galeana in family medicine on 09/22/18. REVIEW OF SYSTEMS Review of Systems OBJECTIVE PHYSICAL EXAM Ortho Exam General: Alert, oriented x3 and in no acute distress Extremities: Bilateral hammertoes, Vascular: DP pulses: Bilateral pulses are palpable PT pulses: Bilateral pulses are palpable Edema: Negative Skin: Hair growth: Scant Toenails: Right 1 is thickened and dystrophic all others are long Skin pigmentation: Well pigmented Skin color: Pallor Skin texture: Thin, shiny, dry Skin temperature changes: Bilateral feet are warm [place]/calluses: Hyperkeratotic buildup over the right 5th and 1st metatarsal heads and left 1st metatarsal head. Left 1st metatarsal head with a 2 x 2 cm discoloration consistent with a sub callus blood blister. There is no erythema, no swelling, no drainage. Neurological: A monofilament testing: Right 1/5 and left 3/5 ?? ASSESSMENT / PLAN #1 Pre-ulcerative calluses #2 Diabetes mellitus type 2 with peripheral neuropathy #3 Hypertrophied toenails With the patient's permission, 3 lesions were pared with a number 15 blade and electric bur. Skin isintact. Left 1 skin has healed beneath the old blood blister. He is to continue wearing supportive shoes at all times with the custom insert. I reviewed signs symptoms of infection. Ten toenails were also trimmed with nippers. I advised him to call me immediately if there is any evidence of infection or worsening of the blood blister. Postprocedure pain ratin/10. Provided the patient with my card, reviewed [...] Type Priority Associated Diagnoses Order S chedule Ortho Surg / Outpatient Referral Routine Expected : Podiatry estab pt 12/03/2018 visit (clinic) (Approximate) , Expires: 10/03/2021 documented as of this encounter Visit Diagnoses Diagnosis Hypertrophied Nail Diabetes Mellitus Type 2 With Diabetic N europathy (HCC) Callus [place] documented in this encounter Care Teams Suction Dredge Dumping Supervisor Relationship Specialty Start Date End Date Kristal Galeana M.D. PCP - General Family Medicine 01/19/18 11/13/18 documented as of this encounter
--- OUTSIDE RECORDS SUMMARY | 2022-02-03 15:08 | XMS_ITS | Encounter Summary ---
:1940 Author Organization [facility] Address [address] [place] [address] Care Team Providers Name Role Phone Kristal Galeana M.D. Primary Care Provider Reason for Visit Reason Comments Diabetic Eye Exam Appointment Request (Routine) - Closed Specialty Diagnoses / Procedures Referred By Contact Refer red To Contact Ophthalmology Referral ID Status Reason Start Date Expiration Date Visits Requ ested Visits Authorized [id number] Closed 07/05/2018 07/05/2019 1 1 Encounter Details Date Type Department Care Team Description 09/13/2018 Comprehensive Visit Department of Aranza Michaels [facility] in [place], [facility] Scl erosis [place], [place] O.D. Bilateral (Primary [address] [place] [address] [facility] [place]x) [place] [address] [phone] Social History Tobacco Use Types Packs/Day Years [...] How often do you attend quaker or christian services? Elizabeth calvillo refused 10/29/2020 Do you belong to any [...] documented as of this encounter Progress Notes Tania Michaels O.D. - 09/13/2018 1:00 PM CDT #1 Diabetes mellitus, Type 2, no eye complications. Plan: monitor annually, emphasized the importance of good diabetic control. #2 Cataract, both eyes not visually significant; discussed monitor Return every 1 year for vision, tonometry, and dilation. documented in this encounter Plan of Treatment Not on filedocumented as of this encounter Visit Diagnoses Diagnosis Cataract Senile Nuclear Sclerosis Bilate ral - Primary documented in this encounter Care Teams Tariff Compiling Clerk Relationship Specialty Start Date End Date Kristal Galeana M.D. PCP - General Family Medicine 01/19/18 11/13/18 documented as of this encounter
--- OUTSIDE RECORDS SUMMARY | 2022-02-03 15:08 | XMS_ITS | Encounter Summary ---
:1940 Author Organization [facility] Address [address] [place] [address] Care Team Providers Name Role Phone Lexus Fowler M.D., M.P.H. Primary Care Provider [phone] Reason for Referral Outpatient (Routine) - Closed Specialty Diagnoses / Procedures Referred By Contact Refer red To Contact Orthopedic Surgery Adan Mosquera [facility] 200 [place] [address] Referral ID Status Reason Start Date Expiration Date Visits Requ ested Visits Authorized [id number] Closed 03/06/2019 03/05/2020 1 1 Reason for Visit Outpatient (Routine) - Closed Specialty Diagnoses / Procedures Referred By Contact Refer red To Contact Orthopedic Surgery Roslyn Veliz APRN, [facility] C.N.PClarence [address] [place] [phone] Referral ID Status Reason Start Date Expiration Date Visits Requ ested Visits Authorized [id number] Closed 12/12/2018 12/12/2019 1 1 Encounter Details Date Type Department Care Team Description 03/06/2019 Procedure visit Department of Adan Mosquera orn Foot (Primary Dx); Orthopedic Surgery in [place] Dystro phic Toenail; [place], [place] Diabetes Mellitus Type 2 Wit h Diabetic Neuropathy (HCC) [address] [place] [phone] Social History Tobacco Use Types Packs/Day Years [...] How often do you attend yazidi or cheondoism services? Patien t refused 10/29/2020 [...] documented as of this encounter Progress Notes Adan Mosquera P.A.-C. - 03/06/2019 11:00 AM CDT SUBJECTIVE REFERRAL INFORMATION Roslyn Vleiz, ALEN, C.N.P. [address] [place] [phone] CHIEF COMPLAINT/REASON FOR VISIT Callus paring, right great toe. HISTORY OF PRESENT ILLNESS Mr. Vazquez is a very pleasant 78 y.o. male who returns to [facility] Podiatry for paring of his recurrent right great toe callus. 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 He was last seen for paring of a preulcerative callus on 12/12/2018. He denies numbness, tingling, or burning pain in his feet. He currently rates foot pain at 0/10. He was last seen by Dr. Kristal Galeana on 09/22/2018 for active care management. Hislast hemoglobin A1c was 6.7% on 09/02/2018. REVIEW OF SYSTEMS The following portions of the patient's history were reviewed and updated as appropriate: allergies,current medications, family history, medical history, social history, surgical history, problem list, labs, diagnostics tests. I reviewed the pertinent clinical notes in the electronic health record. OBJECTIVE PHYSICAL EXAM Ortho Exam General: Elderly male in no acute distress. Alert and fully oriented. Pulses: (Right/Left): Post tibial weakly palpable; Dorsalis Pedis weakly palpable. Skin: Hair growth: Scant in both feet. Toenails: The right great toenail was thickened, dystrophic, and long. All other nails were hypertrophied. Pigmentation: Pale. Texture: Thin, dry. Temperature: Appropriately warm. Extremities: No edema noted in bilateral lower legs. 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 Bunions noted bilaterally. Hammertoe does noted bilaterally. PROCEDURE DETAILS After obtaining patient permission, the callus overlying the medial aspect of the right great toe was pared in a meticulous manner using a #15 blade. Following selective debridement, some splinter hemorrhaging remained the tissue. After reducing the callus from the medial nail margin, a small fissure with scant oozing was noted. This was treated with bacitracin ointment and a Band-Aid dressing. Usinga sanding dann, I reduced further callus from this area. Using an electric dann, do some of the dystrophic nail from the right great toe. He tolerated these procedures well without difficulty or incident. Postprocedure pain: 0/10. ASSESSMENT / PLAN #1 Callus [place] Foot #2 Dystrophic Toenail #3 Diabetes Mellitus Type 2 With Diabetic Neuropathy (HCC) PLAN: I reviewed my findings with Mr. Vazquez. Detailed verbal recommendations were given to the patientregarding ongoing foot care. He will keep some bacitracin ointment on the small fissure until this has resolved. He will change the ointment and Band-Aid dressing once daily and is needed. The patient cites full understanding and agrees with this plan. All questions answered to his satisfaction. He will return for follow-up in mid August 2019 after he returns from [place], [place]. Should any issues, concerns, or questions arise in the interim, the patient should notify us. [facility] Podiatry Clinic contact phone numbers were provided. INFORMED CONSENT: I discussed the risks, benefits, alternatives, and the necessity of other members of the healthcare team participating in the procedure. All questions answered and consent given. PROCEDURAL PAUSE: Procedural pause conducted to verify: correct patient identity, procedure to be performed and as applicable, correct side and site, correct patient position, and availability of implants, special equipment or special requirements. PATIENT EDUCATION: Patient ready to learn. No barriers to learning were identified. Learning preferences include listening. I explained the diagnosis and treatment plan to the patient who expressed understanding of the content. Total patient time: 25 minutes. Adan Mosquera P.A.-C. documented in this encounter Plan of Treatment Scheduled Referrals Name Type Priority Associated Order Schedule Diagnoses Orthopedic Surgery Outpatient Referral Routine Ex pected: office visit 09/05/2019 (clinic) (Approximate), Expires: 03/06/2022 documented as of this encounter Visit Diagnoses Diagnosis Callus [place] Foot - Primary Dystrophic Toenail Diabetes Mellitus Type 2 With Diabetic N europathy (HCC) documented in this encounter Care Teams Barrel Rifler Hook Relationship Specialty Start Date End Date Lexus Fowler M.D., M.P.H. PCP - General 11/14/18 11/13/21 [address] [place] [address] documented as of this encounter
--- OUTSIDE RECORDS SUMMARY | 2022-02-03 15:08 | XMS_ITS | Encounter Summary ---
:1940 Author Organization [facility] Address [address] [place] [address] Care Team Providers Name Role Phone Kristal Galeana M.D. Primary Care Provider Reason for Visit Reason Onset Date Comments question 03/04/2018 Encounter Details Date Type Department Care Team Description 03/04/2018 Clinical Communication Department of Maikol Loredo question Medicine, [facility] M.D. [place], [place] [address] [place] [address] 411 [facility] [phone] [place] [address] [phone] Social History Tobacco Use Types Packs/Day Years [...] How often do you attend restorationist or episcopalian services? Patien t refused 10/29/2020 Do you [...] this encounter Miscellaneous Notes Telephone Encounter - Med Alvarez M.D. - 03/04/2018 3:23 PM CDT Whoops! Labs and visit should both be in 6mo Telephone Encounter - Arti Salgado - 03/04/2018 2:40 PM CDT You ordered labs for this patient for 2019. Also there is a subsequent visit, and your lab orders indicate to do them before next visit. However your request date for the visit is first available? Justwant to clarify when you would like him to do these appointments? Thanks. documented in this encounter Plan of Treatment Not on filedocumented as of this encounter Visit Diagnoses Not on filedocumented in this encounter Care Teams Hosiery Bagger Relationship Specialty Start Date End Date Kristal Galeana M.D. PCP - General Family Medicine 01/19/18 11/13/18 documented as of this encounter
--- OUTSIDE RECORDS SUMMARY | 2022-02-03 15:08 | XMS_ITS | Encounter Summary ---
:1940 Author Organization [facility] Address [address] [place] [address] Care Team Providers Name Role Phone Reuben Cavazos Primary Care Provider Unavailable Reason for Visit Reason Comments Immunizations Appointment Request (Routine) - Closed Specialty Diagnoses / Procedures Referred By Contact Refer red To Contact Family Medicine Referral ID Status Reason Start Date Expiration Date Visits Requ ested Visits Authorized [id number] Closed 10/12/2017 10/12/2018 1 1 Encounter Details Date Type Department Care Team Description 11/10/2017 Nurse Only Department of Family Sarah Ortiz L.P.N . Immunizations Medicine, [facility] [address] [place] [address] Social History Tobacco Use Types Packs/Day Years Used Date Smoking Tobacco: Never Alcohol Habits Answer Date Recorded [...] How often do you attend methodist or orthodoxy services? Patien t refused 10/29/2020 [...] Primary documented in this encounter Care Teams Senior Android Software Engineer Relationship Specialty Start Date End Date Reuben Cavazos B.M.B.S. PCP - General Family Medicine 11/19/14 11/12/17 documented as of this encounter
--- OUTSIDE RECORDS SUMMARY | 2022-02-03 15:08 | XMS_ITS | Encounter Summary ---
:1940 Author Organization [facility] Address [address] [place] [address] Care Team Providers Name Role Phone Kristal Galeana M.D. Primary Care Provider Reason for Referral Outpatient (Routine) - Closed Specialty Diagnoses / Procedures Referred By Contact Refer red To Contact Orthopedic Surgery Roslyn Veliz APRN, [facility] C.N.P. [address] [place] [phone] Referral ID Status Reason Start Date Expiration Date Visits Requ ested Visits Authorized [id number] Closed 03/10/2018 03/10/2019 1 1 Reason for Visit Outpatient (Routine) - Closed Specialty Diagnoses / Procedures Referred By Contact Refer red To Contact Orthopedic Surgery Roslyn Veliz APRN, [facility] C.N.P. [address] [place] [phone] Referral ID Status Reason Start Date Expiration Date Visits Requ ested Visits Authorized [id number] Closed 01/13/2018 01/13/2019 1 1 Encounter Details Date Type Department Care Team Description 03/10/2018 Procedure visit Department of Roslyn Veliz Callus Co rn Foot; Orthopedic Surgery in [place] C.N. P. Diabetes Mellitus Type 2 With Diabetic N europathy (HCC) [place], [place] [address] [facility] [address] [place] [phone] [phone] Social History Tobacco Use Types Packs/Day Years [...] 10/29/2020 relatives? How often do you attend presybeterian or holiness services? Patien t refused 10/29/2020 Do you belong to any clubs or organizations such as Nabil borrero presybeterian groups, unions, fraternal or athletic groups, or [...] Progress Notes Roslyn Veliz, ALEN, C.N.P. - 03/10/2018 9:30 AM CDT SUBJECTIVE Pain reported: 06/26 CHIEF COMPLAINT / REASON FOR VISIT Vinayak Vazquez is a 77 y.o. male accompanied by his who presents for follow- up of pre ulcerativeplantar calluses and is under the care of Kristal Galeana M.D.. HISTORY OF PRESENT ILLNESS Mr. Vazquez presents to the [facility] Podiatry Clinic with calluses on bilateral feet plantar surface. He states that he has his toenails taking care of in a salon and that they also work on his calluses. The patient wears New Balance shoes. He also has 3 pairs of custom-made inserts from [employer]. A1c was 6.8 on 09/06/17. His past medical history is significant for type 2 diabetes mellitus with neuropathy, callus and history of diabetic foot ulcer. Claudication: Negative Burning: Negative Paresthesias: Numbness in both feet right greater than left Active care for diabetes mellitus type 2: Last seen Dr. Korey Alvarez on 03/04/18. REVIEW OF SYSTEMS Review of Systems OBJECTIVE PHYSICAL EXAM Ortho Exam General: Alert, oriented x3 and in no acute distress Extremities: Class A findings: Negative Class B findings: DP pulses: Bilateral pulses are palpable PT pulses: Bilateral pulses are palpable Advance trophic changes: Hair growth: Scant Toenails: Right 1 is thickened and dystrophic all others are long Skin pigmentation: Well pigmented Skin color: Pallor Skin texture: Thin, shiny, dry Class C findings: Edema: Negative Skin temperature changes: Bilateral feet are warm Hyperkeratotic buildup over the right 5th and 1st metatarsal heads and left 1st metatarsal head. Left 1st metatarsal head with pinpoint discoloration. There is no erythema, no fluctuance and no drainage. ?? ASSESSMENT / PLAN #1 Pre-ulcerative calluses #2 Diabetes mellitus type 2 with peripheral neuropathy With the patient's permission, 3 lesions were pared with a number 15 blade and electric bur. Skin isintact. Left 1 does have a persistent pinpoint area of discoloration consistent with micro hemorrhage. Postprocedure pain ratin/10. Provided the patient with [...] Referral Routine Expected : Podiatry estab pt 08/29/2018 visit (clinic) (Approximate) , Expires: 03/10/2021 documented as of this encounter Visit Diagnoses Diagnosis Callus [place] Foot Diabetes Mellitus Type 2 With Diabetic N europathy (HCC) documented in this encounter Care Teams Care Services Manager Relationship Specialty Start Date End Date Kristal Galeana M.D. PCP - General Family Medicine 01/19/18 11/13/18 documented as of this encounter
--- OUTSIDE RECORDS SUMMARY | 2022-02-03 15:08 | XMS_ITS | Encounter Summary ---
:1940 Author Organization [facility] Address [address] [place] [address] Care Team Providers Name Role Phone Bryce Monahan D.O. Primary Care Provider [phone] Reason for Referral Outpatient (Routine) - Closed Specialty Diagnoses / Procedures Referred By Contact Refer red To Contact Orthopedic Surgery Roslyn Veliz APRN, [facility] C.N.P. [address] [place] [phone] Referral ID Status Reason Start Date Expiration Date Visits Requ ested Visits Authorized [id number] Closed 01/13/2018 01/13/2019 1 1 Reason for Visit Outpatient (Routine) - Closed Specialty Diagnoses / Procedures Referred By Contact Refer red To Contact Orthopedic Surgery Roslyn Veliz APRN, [facility] C.N.P. [address] [place] [phone] Referral ID Status Reason Start Date Expiration Date Visits Requ ested Visits Authorized [id number] Closed 10/13/2017 10/13/2018 1 1 Encounter Details Date Type Department Care Team Description 01/13/2018 Procedure visit Department of Roslyn Veliz Callus Co rn Foot; Orthopedic Surgery in [place] C.N. P. Diabetes Mellitus Type 2 With Diabetic N europathy ([facility]) [place], [place] [address] [facility] [address] [place] [phone] [phone] Social History Tobacco Use Types Packs/Day Years [...] How often do you attend sabianism or judaism services? Patien t refused 10/29/2020 [...] Progress Notes Roslyn Veliz, ALEN, C.N.P. - 01/13/2018 1:30 PM CDT SUBJECTIVE Pain reported: 06/26 CHIEF COMPLAINT / REASON FOR VISIT Vinayak Vazquez is a 77 y.o. male accompanied by his who presents for follow- up of pre ulcerativeplantar calluses and is under the care of Bryce Monahan D.O.. HISTORY OF PRESENT ILLNESS Mr. Vazquez presents to the [facility] Podiatry Clinic with calluses on bilateral feet plantar surface. He states that he has his toenails taking care of in a salon and that they also work on his calluses. He wasrecently seen by his primary care provider and was noted to have possible ulcerations under the calluses. The patient does wear new balance shoes which she states are approximately 3-month-old. He alsohas 3 pairs of custom-made inserts from [employer]. A1c was 6.8 on 09/06/17. His past medical history is significant for type 2 diabetes mellitus with neuropathy, callus and history of diabetic foot ulcer. REVIEW OF SYSTEMS Review of Systems OBJECTIVE PHYSICAL EXAM Ortho Exam General: Alert, oriented x3 and in no acute distress Extremities: Class A findings: Negative Class B findings: DP pulses: Bilateral pulses are palpable PT pulses: Bilateral pulses are palpable Advance trophic changes: Hair growth: Scan Toenails: Right 1 is thickened and dystrophic all others are long Skin pigmentation: Will pigmented Skin color: Pallor Skin texture: Thin, shiny, dry Class C findings: Edema: Negative Claudication: Negative Burning: Negative Paresthesias: Numbness in both feet right greater than left Monofilament testing: Right foot 1/5 and left foot 3/5 Skin temperature changes: Bilateral feet are warm Hyperkeratotic buildup over the right 5th and 1st metatarsal heads and left 1st metatarsal head. All3 calluses have 1 mm sub callus micro hemorrhage. There is no erythema, no fluctuance and no drainage. ?? ASSESSMENT / PLAN #1 Pre-ulcerative calluses #2 Diabetes mellitus type 2 with peripheral neuropathy Three lesions were repaired with a number 15 blade. There remains the no discoloration beneath the calluses, skin is intact. Postprocedure pain ratin/10. Provided the patient with my card, reviewedsigns/symptoms of infection and discussed how to reach me should concerns arise for infection or pain. I recommended that he return to [facility] for adjustment to his inserts to offload pressure over callused areas. ?? Procedural Pause Procedural pause conducted to verify: correct patient identity, procedure to be performed, and as applicable, correct side and site, correct patient position, and availability of special equipment or special requirements. ?? PATIENT EDUCATION TEMPLATE Ready to learn, no apparent learning barriers were identified; learning preferences include listening. Explained diagnosis and treatment plan; patient expressed understanding of the content. ?? Informed Consent: Discussed the risks, benefits, alternatives and the necessity of other members of the health care team participating in the procedure. All questions answered and consent given. documented in this encounter Plan of Treatment Scheduled Referrals Name Type Priority Associated Diagnoses Order S chedule Ortho Surg / Outpatient Referral Routine Expected : Podiatry estab pt 03/15/2018 visit (clinic) (Approximate) , Expires: 01/13/2021 documented as of this encounter Visit Diagnoses Diagnosis Callus [place] Foot Diabetes Mellitus Type 2 With Diabetic N europathy (HCC) documented in this encounter Care Teams Blind Slat Stapling Machine Operator Relationship Specialty Start Date End Date Bryce Monahan D.O. PCP - General Family Medicine 11/13/17 01/18/18 [address] [place] [address] documented as of this encounter
--- OUTSIDE RECORDS SUMMARY | 2022-02-03 15:08 | XMS_ITS | Encounter Summary ---
:1940 Author Organization [facility] Address [address] [place] [address] Care Team Providers Name Role Phone Bryce Monahan D.O. Primary Care Provider [phone] Encounter Details Date Type Department Care Team Description 12/01/2017 Ancillary Procedure Department of Family Medicine Social [...] 10/29/2020 relatives? How often do you attend sikh or religion services? Patien t refused 10/29/2020 Do you belong to any clubs or organizations such as Not jelani borrero sikh groups, unions, fraternal or athletic groups, or [...] Associated Diagnosis Comme nts FAMILY MEDICINE Routine 12/01/2017 12:10 PM Resul ts for this IMAGE EXAM CDT procedure are i n the results section. documented in this encounter Results FAMILY MEDICINE IMAGE EXAM (12/01/2017 12:10 PM CDT) Specimen (Source) Anatomical Collection Method Collection Time Re ceived Time Location / / Volume Laterality 12/01/2017 12:07 PM CDT Narrative [facility] - 12/01/2017 2:10 PM CDT This order has been created and auto-finalized to support the import of images acquired without order. The clini pamler documentation to support these images can be found on the encounter alize t produced images. Provider Not In System IMG NON RAD IMAGING PROCEDUR ES Performing Organization Address City/State/ZIP Code Phon e Number [facility] NA documented in this encounter Visit Diagnoses Not on filedocumented in this encounter Care Teams Offshore Diver Relationship Specialty Start Date End Date Bryce Monahan D.O. PCP - General Family Medicine 11/13/17 01/18/[address] [place] [phone] documented as of this encounter
--- OUTSIDE RECORDS SUMMARY | 2022-02-03 15:08 | XMS_ITS | Encounter Summary ---
:1940 Author Organization [facility] Address [address] [place] [address] Care Team Providers Name Role Phone Bryce Monahan D.O. Primary Care Provider [phone] Reason for Referral Outpatient (Routine) - Closed Specialty Diagnoses / Procedures Referred By Contact Refer red To Contact Family Medicine Kristal Galeana M.D. [address] [place] [address] Referral ID Status Reason Start Date Expiration Date Visits Requ ested Visits Authorized [id number] Closed 12/01/2017 12/01/2018 [address] Galeana if possible Reason for Visit Reason Comments Other spot on neck Appointment Request (Routine) - Closed Specialty Diagnoses / Procedures Referred By Contact Refer red To Contact Family Medicine Referral ID Status Reason Start Date Expiration Date Visits Requ ested Visits Authorized [id number] Closed 11/30/2017 11/30/2018 1 1 Encounter Details Date Type Department Care Team Description 12/01/2017 Office Visit Department of Kristal Ramon Lesio n Skin Neck (Primary Dx); Medicine, Estiven Osborn M.D. [facility] [address] [place] [address] [address] [facility] [phone] [place] [address] (Work) [phone] Social History Tobacco Use Types Packs/Day Years [...] 10/29/2020 relatives? How often do you attend adventist or sabianism services? Patien t refused 10/29/2020 Do you belong to any clubs or organizations such as Nabil borrero adventist groups, unions, fraternal or athletic groups, or [...] Sign Reading Time Taken Comments Blood Pressure 116/64 12/01/2017 1:37 PM CDT average Pulse 54 12/01/2017 1:37 PM CDT Temperature - - Respiratory Rate - - Oxygen Saturation - - Inhaled Oxygen Concentration - - Weight 94.2 kg (207 lb 10.8 oz) 12/01/2017 1:37 PM CDT Height - - Body Mass Index 29.56 09/09/2017 8:45 AM CDT documented in this encounter Progress Notes Kristal Galeana M.D. - 12/01/2017 1:45 PM CDT SUBJECTIVE Mr. Vazquez presents with his for evaluation of a skin lesion on his right neck near his clavicle. He has had is present for years, but over the last few months it has grown and became more dry/scaly in appearance. He has had previous pre- cancerous skin lesions in the past removed but no melanoma. Heis interested in it being taken off as well as some skin tags under his arms which are irritating physically to him. OBJECTIVE General: well appearing male in no acute distress Skin: small skin colored skin tags with thin stalks under each arm (about a half dozen total); he otherwise has a 6mm in greatest diameter raised, skin colored lesion on the right clavice - picture taken for the chart ASSESSMENT / PLAN #1 Skin lesion, neck #2 Skin tags We discussed that it would be a good idea to remove the lesion on his neck as it could be precancerous, most consistent with a squamous cell carcinoma. We discussed that since we only had 15 minutes for this appointment that a new appointment would need to be set up for removal of the lesion and the skin tags. They were in agreement with the plan. documented in this encounter Plan of Treatment Scheduled Referrals Name Type Priority Associated Diagnoses Order [facility] Family Medicine Outpatient Referral Routine Expec margoth: office visit 12/01/2017 (clinic) (Approximate), Expires: 12/01/2020 documented as of this encounter Visit Diagnoses Diagnosis Lesion Skin Neck - Primary Tag Skin documented in this encounter Care Teams Carpet Renovator Relationship Specialty Start Date End Date Bryce Monahan D.O. PCP - General Family Medicine 11/13/17 01/18/18 [address] [place] [address] documented as of this encounter
--- OUTSIDE RECORDS SUMMARY | 2022-02-03 15:08 | XMS_ITS | Encounter Summary ---
:1940 Author Organization [facility] Address [address] [place] [address] Care Team Providers Name Role Phone Kristal Galeana M.D. Primary Care Provider Encounter Details Date Type Department Care Team Description 01/19/2018 Clinical Communication Department of Letitia Ramon, Medicine, [facility] Alonso [address] [place] [address] [place] [address] [place] [address] (Work) [phone] Social History Tobacco Use Types Packs/Day Years [...] 10/29/2020 relatives? How often do you attend mandaen or hinduism services? Patien t refused 10/29/2020 Do you belong to any clubs or organizations such as Nabil borrero mandaen groups, unions, fraternal or athletic groups, or [...] this encounter Miscellaneous Notes Telephone Encounter - Dee Irwin - 01/19/2018 9:53 AM CDT Caller:Vinayak Vazquez Relationship to Patient:self Callback Number:[phone] Pharmacy: Request/Details:patient has diabetic lab scheduled on 02/28/18, and would like any necessary labs ordered with the hemoglobin so he can get them oin one draw--he meets with you on 02/28/18. Please order if appropriate, and we will add to lab on 02/28, Thank you. Please respond to RST RENEE GASPAR Scheduling pool if necessary documented in this encounter Plan of Treatment Not on filedocumented as of this encounter Visit Diagnoses Not on filedocumented in this encounter Care Teams Plating Tank Operator Relationship Specialty Start Date End Date Kristal Galeana M.D. PCP - General Family Medicine 01/19/18 11/13/18 documented as of this encounter
--- OUTSIDE RECORDS SUMMARY | 2022-02-03 15:08 | XMS_ITS | Encounter Summary ---
:1940 Author Organization [facility] Address [address] [place] [address] Care Team Providers Name Role Phone Bryce Monahan D.O. Primary Care Provider [phone] Reason for Visit Outpatient (Routine) - Closed Specialty Diagnoses / Procedures Referred By Contact Refer red To Contact Family Medicine Jamarcus Galeana M.D. [address] [place] [address] Referral ID Status Reason Start Date Expiration Date Visits Requ ested Visits Authorized [id number] Closed 12/01/2017 12/01/2018 1 1 Encounter Details Date Type Department Care Team Description 12/01/2017 Office Visit Department of Family Jamarcus Galeana Lesio n Skin Chest (Primary Dx); Medicine, [facility] [address] [place] [address] [address] [facility] [phone] [place] [address] (Work) [phone] Social History Tobacco Use Types Packs/Day Years [...] How often do you attend advent or mu-ism services? Patien t refused 10/29/2020 [...] on file documented as of this encounter Procedure Notes Jamarcus Galeana M.D. - 12/01/2017 4:00 PM CDTAssociated Order(s): LESION BIOPSY; LESION DESTRUCTION Post-Procedure Diagnose(s): Lesion Skin Chest; Tag Skin Lesion Biopsy Date/Time: 12/01/2017 7:08 PM Performed by: JAMARCUS GALEANA Authorized by: JAMARCUS GALEANA Consent: Consent obtained: Written The benefits, risks and alternatives to the procedure and the potential need for sedation or anesthesia as well as the names, roles, and responsibilities of healthcare team members performing significant interventional tasks were discussed with the patient and/or decision maker.: Yes Halliday protocol: All relevant documentation and testing were reviewed and available. All required blood products, implants, devices and/or special equipment were made available as applicable. The pre-procedure verification was conducted, the correct site was marked if required, and the procedural time out was conducted prior to performing the procedure and confirmed in a procedural pause.: Yes Pre-procedure details: Procedure purpose: Diagnostic Appropriate hand hygiene, gown, cap, mask, protective eyewear, sterile gloves, skin preparation, sterile drape, and strict aseptic technique were utilized as applicable for the procedure.: Yes Site preparation: Chlorhexidine Sedation/Anesthesia (see MAR for exact dosages): Anesthesia method: Local Local infiltrate: Lidocaine with epi Total anesthetic volume: 1 mL Procedure details: Type of biopsy: Shave Number of lesions: 1 Lesion Number 1: Size of lesion: 6 mm Size of final defect: 7-9 mm Wound closure / hemostasis: Hemostasis Hemostasis: Aluminum chloride Specimen sent for pathology: Yes Post-procedure details: Estimated blood loss: Minimal Procedure completed successfully: Yes Complications: No apparent complications Tolerance: Well tolerated Lesion Destruction Date/Time: 12/01/2017 7:10 PM Performed by: JAMARCUS GALEANA Authorized by: JAMARCUS GALEANA Consent: Consent obtained: Written The benefits, risks and alternatives to the procedure and the potential need for sedation or anesthesia as well as the names, roles, and responsibilities of healthcare team members performing significant interventional tasks were discussed with the patient and/or decision maker.: yes Halliday protocol: All relevant documentation and testing were reviewed and available. All required blood products, implants, devices and/or special equipment were made available as applicable. The pre-procedure verification was conducted, the correct site was marked if required, and the procedural time out was conducted prior to performing the procedure and confirmed in a procedural pause.: yes Pre-procedure details: Procedure purpose: Therapeutic Indications: Physical irritation Appropriate hand hygiene, gown, cap, mask, protective eyewear, sterile gloves, skin preparation, sterile drape, and strict aseptic technique were utilized as applicable for the procedure.: yes Site preparation: Alcohol Pre Procedural Diagnosis: Skin tag Sedation/Anesthesia (see MAR for exact dosages): Anesthesia method: None Procedure details: Number of Body Areas Treated: 2 Body Area Number 1: Number of Lesions Treated: 5 Location on body: Anterior trunk Anterior trunk: Left chest. Destruction Method: Sharp dissection(skin tags) Tool: Scissors Hemostasis: Natural processes Body Area Number 2: Number of Lesions Treated: 3 Location on body: Anterior trunk Anterior trunk: Right chest. Destruction Method: Sharp dissection(skin tags) Tool: Scissors Hemostasis: Natural processes Post-procedure details: Total Lesions Destroyed: 8 Total lesions destroyed by chemical injection: 0 Estimated blood loss: Minimal Procedure completed successfully: yes Complications: no apparent complications Tolerance: Well tolerated Follow up: No follow up planned unless complications Photo taken: No documented in this encounter Plan of Treatment Not on filedocumented as of this encounter Procedures Procedure Name Priority Date/Time Associated Comments Diagnosis HI RMVL SKIN TAGS <=15 Routine 12/01/2017 9:00 Tag Skin Re sults for this PM CDT procedure are i n the results section. HI BX SKIN/SUBQ TISS 1ST Routine 12/01/2017 9:00 Lesion Skin C hest Results for this LESION PM CDT procedure are i n the results section. DERMATOPATHOLOGY Routine 12/01/2017 5:06 Lesion Skin Chest Res ults for this PM CDT procedure are i n the results section. documented in this encounter Results HI RMVL SKIN TAGS <=15 (12/01/2017 9:00 PM CDT) Narrative [facility] - 12/01/2017 9:00 PM CDT Jamarcus Galeana M.D. ? 12/01/2017 ??7:12 PM Lesion Destruction Date/Time: 12/01/2017 7:10 PM Performed by: JAMARCUS GALEANA Authorized by: JAMARCUS GALEANA Consent: ??Consent obtained: ??Written ??The benefits, risks and alternatives to the procedure and the potential need for sedation or anesthesia as well as the names, roles, and responsibilities of healthcare team memb ers performing significant interventional tasks were discussed with the patient and/or decision maker.: yes ?? Halliday protocol: ??All relevant documentation and testin g were reviewed and available. All required blood products, implants, devic es and/or special equipment were made available as applicable. The pre-pr ocedure verification was conducted, the correct site was marked i f required, and the procedural time out was conducted prior to performi ng the procedure and confirmed in a procedural pause.: yes ?? Pre-procedure details: ??Procedure purpose: ??Therapeutic ??Indications: ??Physical irritation ??Appropriate hand hygiene, gown, cap, mask, protective eyewear, sterile gloves, skin preparation, sterile drape, and strict aseptic technique were utilized as applicable for the procedure .: yes ?Site preparation: ??Alcohol ??Pre Procedural Diagnosis: ??Skin tag Sedation/Anesthesia (see MAR for exact d osages): ??Anesthesia method: ??None Procedure details: ??Number of Body Areas Treated: ??2 Body Area Number 1: ??Number of Lesions Treated: ??5 ??Location on body: ??Anterior trunk ? Anterior trunk: ??Left chest. ??Destruction Method: ??Sharp dissectio n(skin tags) ? Tool: ??Scissors ??Hemostasis: ??Natural processes Body Area Number 2: ??Number of Lesions Treated: ??3 ??Location on body: ??Anterior trunk ? Anterior trunk: ??Right chest. ??Destruction Method: ??Sharp dissectio n(skin tags) ? Tool: ??Scissors ??Hemostasis: ??Natural processes Post-procedure details: ??Total Lesions Destroyed: 8 ??Total lesions destroyed by chemical i njection: 0 ??Estimated blood loss: ??Minimal ??Procedure completed successfully: yes ?Complications: no apparent complicati ons ?Tolerance: ??Well tolerated ??Follow up: ??No follow up planned unl ess complications ??Photo taken: ??No Jamarcus Galeana M.D. PROCEDURE/MINOR SURGICAL ORD ERABLES Performing Organization Address City/State/ZIP Code Phon e Number [facility] NA HI BX SKIN/SUBQ TISS 1ST LESION (12/01/2017 9:00 PM CDT) Narrative [facility] - 12/01/2017 9:00 PM CDT Jamarcus Galeana M.D. ? 12/01/2017 ??7:12 PM Lesion Biopsy Date/Time: 12/01/2017 7:08 PM Performed by: JAMARCUS GALEANA Authorized by: JAMARCUS GALEANA Consent: ??Consent obtained: ??Written ??The benefits, risks and alternatives to the procedure and the potential need for sedation or anesthesia as well as the names, roles, and responsibilities of healthcare team memb ers performing significant interventional tasks were discussed with the patient and/or decision maker.: Yes ?? Halliday protocol: ??All relevant documentation and testin g were reviewed and available. All required blood products, implants, devic es and/or special equipment were made available as applicable. The pre-pr ocedure verification was conducted, the correct site was marked i f required, and the procedural time out was conducted prior to performi ng the procedure and confirmed in a procedural pause.: Yes ?? Pre-procedure details: ??Procedure purpose: ??Diagnostic ??Appropriate hand hygiene, gown, cap, mask, protective eyewear, sterile gloves, skin preparation, sterile drape, and strict aseptic technique were utilized as applicable for the procedure .: Yes ?Site preparation: ??Chlorhexidine Sedation/Anesthesia (see MAR for exact d osages): ??Anesthesia method: ??Local ??Local infiltrate: ??Lidocaine with ep i ??Total anesthetic volume: ??1 mL Procedure details: ??Type of biopsy: Shave ?Number of lesions: ??1 Lesion Number 1: ??Size of lesion: ??6 mm ??Size of final defect: ??7-9 mm ??Wound closure / hemostasis: ??Hemosta sis ??Hemostasis: ??Aluminum chloride ??Specimen sent for pathology: ??Yes Post-procedure details: ??Estimated blood loss: ??Minimal ??Procedure completed successfully: Yes ?Complications: No apparent complicati ons ?Tolerance: ??Well tolerated Jamarcus Galeana M.D. PROCEDURE/MINOR SURGICAL ORD ERABLES Performing Organization Address City/State/ZIP Code Phon e Number [facility] NA Dermatopathology (12/01/2017 5:06 PM T) Component Value Ref Test Analysis Performed At [facility] Range Method Time Signature Gross Description Received in formalin labeled with the patient's n shad and 12/06/2017 [facility] assigned specimen ID number [id number] and labeled as 11:02 AM LABORATORIES - right upper chest is a 0.7 x 0.5 x 0.1 cm pak-white skin [facility] shave biopsy. ??There is a 0.5 x 0.4 cm pak-white pigmented [facility]AMPUS lesion peripherally located on the skin surface. ??Specimen is bisected and submitted entirely in cassette A1. Grossed by ABRAHAM. Report Tad Moreno 12/06/2017 [facility] electronically [place]onso Early 11:02 AM LABORATORIES - signed by [facility] 12/06/2017 [facility] 11:02 AM LABORATORIES - [facility] Interpretation FINAL DIAGNOSIS 12/06/2017 [facility] A. ??Right upper chest, Skin shave biopsy: ??Seborrheic 11:02 AM LABORATORIES - keratosis [facility] Specimen Anatomical Collection Method Collection Time Receive d Time (Source) Location / / Volume Laterality Varies 12/01/2017 5:06 PM 8 6:46 CDT PM CDT Narrative This result has an attachment that is no t available. Jamarcus Galeana M.D. LAB PATH DERM ORDERABLES Performing Organization Address City/State/ZIP Code Phon e Number [facility] - [address] [place], [place] [address] [facility] documented in this encounter Visit Diagnoses Diagnosis Lesion Skin Chest - Primary Tag Skin documented in this encounter Care Teams Labor Economics Teacher Relationship Specialty Start Date End Date Bryce Monahan D.O. PCP - General Family Medicine 11/13/17 01/18/18 [address] [place] [address] documented as of this encounter
--- OUTSIDE RECORDS SUMMARY | 2022-02-03 15:08 | XMS_ITS | Encounter Summary ---
:1940 Author Organization [facility] Address [address] [place] [address] Care Team Providers Name Role Phone Reuben Cavazos.M.B.S. Primary Care Provider Unavailable Reason for Visit Reason Onset Date Comments Appointment 10/12/2017 Encounter Details Date Type Department Care Team Description 10/12/2017 Clinical Communication Department of Cathy aCsas, Appointment Medicine, [facility] Riddhi.M.B.SClarence [place], [place] [address] [place] [address] Social History Tobacco Use Types Packs/Day Years [...] 10/29/2020 relatives? How often do you attend roman catholic or scientology services? Patien t refused 10/29/2020 Do you belong to any clubs or organizations such as Nabil borrero roman catholic groups, unions, fraternal or athletic groups, [...] this encounter Miscellaneous Notes Telephone Encounter - Sola Castañeda - 10/12/2017 10:36 AM CDT Patient would like an appointment for podiatry. Can you place that order for him. His number [phone]. Please respond to RST ECH CHASITY Scheduling pool if necessary documented in this encounter Plan of Treatment Scheduled Orders Name Type Priority Associated Diagnoses Order S hood ICS Podiatry Procedure Procedures Routine Diabetes Mellitus Type Expected: 10/12/2017 Clinic 2 ([facility]) (Approximate), Expires: 2020 documented as of this encounter Visit Diagnoses Diagnosis Diabetes Mellitus Type 2 (HCC) - Primary documented in this encounter Care Teams Semiconductor Development Technician Relationship Specialty Start Date End Date Reuben Cavazos B.M.B.S. PCP - General Family Medicine 11/19/14 11/12/17 documented as of this encounter
--- OUTSIDE RECORDS SUMMARY | 2022-02-03 15:08 | XMS_ITS | Encounter Summary ---
:1940 Author Organization [facility] Address [address] [place] [address] Care Team Providers Name Role Phone Kristal Galeana M.D. Primary Care Provider Reason for Visit Reason Comments Med Refill Encounter Details Date Type Department Care Team Description 02/13/2018 Refill Department of Family Medicine, Kristal Keith M.D. Med Refill [address] [place] [address] [place] [address] [place] [address] [phone] Social History Tobacco Use Types Packs/Day Years [...] How often do you attend congregation or restorationism services? Patien t refused 10/29/2020 [...] to sleep or slept in a senior care (including now)? Sex Assigned at Date Recorded Not on file documented as of this encounter Plan of Treatment Not on filedocumented as of this encounter Visit Diagnoses Not on filedocumented in this encounter Care Teams Outfitter Cabin Relationship Specialty Start Date End Date Kristal Galeana M.D. PCP - General Family Medicine 01/19/18 11/13/18 documented as of this encounter
--- OUTSIDE RECORDS SUMMARY | 2022-02-03 15:08 | XMS_ITS | Encounter Summary ---
:1940 Author Organization [facility] Address [address] [place] [address] Care Team Providers Name Role Phone Kristal Galeana M.D. Primary Care Provider Encounter Details Date Type Department Care Team Description 09/05/2018 Ancillary Procedure Department of Orthopedic Surgery Social [...] How often do you attend scientology or synagogue services? Patien t refused 10/29/2020 Do you belong to any clubs or organizations such as Not jelani borrero scientology groups, unions, fraternal or athletic [...] Date/Time Associated Comments Diagnosis ORTHOPEDIC SURGERY Routine 09/05/2018 10:55 AM Re sults for this IMAGE EXAM CDT procedure are i n the results section. documented in this encounter Results Feet 529-Orthopedic Surgery Image Exam (09/05/2018 10:55 AM CDT) Specimen (Source) Anatomical Collection Method Collection Time Re ceived Time Location / / Volume Laterality 09/05/2018 10:53 AM CDT Narrative [facility] - 09/05/2018 10:58 AM CDT This order has been created [...] on filedocumented in this encounter Care Teams Section Leader Relationship Specialty Start Date End Date Kristal Galeana M.D. PCP - General Family Medicine 01/19/18 11/13/18 documented as of this encounter
--- OUTSIDE RECORDS SUMMARY | 2022-02-03 15:08 | XMS_ITS | Encounter Summary ---
:1940 Author Organization [facility] Address [address] [place] [address] Care Team Providers Name Role Phone Kristal Galeana M.D. Primary Care Provider Reason for Referral Outpatient (Routine) - Closed Specialty Diagnoses / Procedures Referred By Contact Refer red To Contact Family Medicine Diagnoses Diabetes Mellitus Type 2 (HCC) [facility] [address] [place] [phone] Referral ID Status Reason Start Date Expiration Date Visits Requ ested Visits Authorized [id number] Closed 03/04/2018 03/04/2019 1 1 Reason for Visit Reason Comments Diabetes Appointment Request (Routine) - Closed Specialty Diagnoses / Procedures Referred By Contact Refer red To Contact Family Medicine Referral ID Status Reason Start Date Expiration Date Visits Requ ested Visits Authorized [id number] Closed 01/19/2018 01/19/2019 1 1 Encounter Details Date Type Department Care Team Description 03/04/2018 Office Visit Department of [facility] Kristal aGleana M.D. [address] [place] [address] 5 [place] [address] Diabetes Mellitus Type 2 (HCC) (Primary Dx); Medicine, [facility] Med Alvarez M.D. [address] [place] [phone] Diabetes Mellitus Type 2 With Diabetic N europathy (HCC); Clinic [place], in Hyperlipid emia; [place], [place] Hypertension Essential Prima ry [address] [place] [address] Social History Tobacco Use Types Packs/Day Years [...] How often do you attend zoroastrian or lutheran services? Patien t refused 10/29/2020 Do you [...] Sign Reading Time Taken Comments Blood Pressure 129/67 03/04/2018 8:23 AM CDT Pulse 57 03/04/2018 8:23 AM CDT Temperature - - Respiratory Rate - - Oxygen Saturation - - Inhaled Oxygen Concentration - - Weight 94.5 kg (208 lb 5.4 oz) 03/04/2018 8:23 AM CDT Height 178.4 cm (5' 10.24) 03/04/2018 8:23 AM CDT Body Mass Index 29.69 03/04/2018 8:23 AM CDT documented in this encounter Progress Notes Med Alvarez M.D. - 03/04/2018 8:30 AM CDT SUBJECTIVE CHIEF COMPLAINT / REASON FOR VISIT Vinayak Vazquez is a 77 y.o. male who presents for evaluation of Diabetes. 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 Overall he is doing well. The patient states that he checks fasting blood sugars about 4 times per week and, in general he has had blood sugars in the 120s. The patient denies any highs or hypoglycemic episodes. Patient has diabetic neuropathy and followswith Podiatry. He checks his feet regularly. He has a history of a diabetic foot ulcer without any significant issues in the recent past. Patient does not have a strict diabetic diet nor does he do anyregular exercise. He continues with an aspirin. He has no side effects from his medication regimen of metformin 500 mg p.o. b.i.d.. #3 Hyperlipidemia Patient continues with his Crestor without any side effect. #4 Hypertension Essential Primary Patient continues with his hydrochlorothiazide without side effects. Patient states that his home blood pressures are little bit lower than they were today despite the fact that today's blood pressure is well controlled. Patient has no acute concerns today. He has already received flu shot. The following portions of the patient's history were reviewed and updated as appropriate: allergies,current medications, family history, medical history, social history, surgical history and problem list. OBJECTIVE PHYSICAL EXAM General appearance: alert, appears stated age and cooperative Neck: no adenopathy, no JVD, supple, symmetrical, trachea midline and thyroid not enlarged, symmetric, no tenderness/mass/nodules Lungs: clear to auscultation bilaterally, no wheeze, rales, or rhonchi Heart: regular rate and rhythm, S1, S2 normal, no murmur, click, rub or gallop Abdomen: soft, non-tender; bowel sounds normal; no masses, no organomegaly Feet: Some dystrophic nails. Skin well moisturized without any hyperkeratotic or dry skin. No skin breakdown. 1+ pulses bilaterally. ASSESSMENT / PLAN Patient is metabolic syndrome is under good control. He is planning for an eye exam in [place] in the coming weeks. He is up-to-date on his diabetic screening. Will plan for follow-up in 6 months. #1 Diabetes Mellitus Type 2 (HCC) Overview: Diagnosed in 2000. Most recent A1c 6.7% on 03/03. Currently taking metformin 500mg bid. No tobacco use. Macrovascular complications include hypertension, dyslipidemia. Currently taking baby aspirin, crestor 10mg qhs and losartan 100mg daily. No Microvascular complications. Orders: - Hemoglobin A1c; Future; Expected date: 09/02/2018 (Before next visit) - Family Medicine office visit (clinic) - Other provider; Future; Expected date: 03/04/2018 #2 Diabetes Mellitus Type 2 With Diabetic Neuropathy ([facility]) #3 Hyperlipidemia - Lipid Panel; Future; Expected date: 09/02/2018 (Before next visit) #4 Hypertension Essential Primary - Potassium; Future; Expected date: 09/02/2018 (Before next visit) - Sodium; Future; Expected date: 09/02/2018 (Before next visit) - Creatinine with Estimated GFR; Future; Expected date: 09/02/2018 (Before next visit) Other orders - hydroCHLOROthiazide (HYDRODIURIL) 50 mg tablet; Take 1 tablet (50 mg total) by mouth daily., Starting Wed03/04/2018, Normal - losartan (COZAAR) 100 mg tablet; Take 1 tablet (100 mg total) by mouth daily., Starting Wed03/04/2018, Normal - metFORMIN (GLUCOPHAGE) 500 mg tablet; Take 1 tablet (500 mg total) by mouth 2 (two) times a day., Starting Wed03/04/2018, Normal - rosuvastatin (CRESTOR) 10 mg tablet; Take 1 tablet (10 mg total) by mouth daily., Starting Wed03/04/2018, Normal documented in this encounter Plan of Treatment Scheduled Referrals Name Type Priority Associated Diagnoses Order S [facility] Outpatient Referral Routine Diabetes Mellitus Expected: office visit Type 2 (HCC) 09/02/2018 (clinic) - Other (Approximat e), provider Expires: 03/04/2021 documented as of this encounter Results Creatinine with Estimated GFR (09/02/2018 8:15 AM CDT) P athologist Signature Creatinine 1.06 0.74 - 09/02/2018 [facility] 1.35 mg/dL 9:02 AM CDT [facility] eGFR-Black/Afri 77 >=60 09/02/2018 [facility] can [place] mL/min/BSA 9:02 AM [facility] Comment: ----ADDITIONAL INFORMATION---- Estimated GFR calculated using the 2009 CKD_EPI creatinine equation. eGFR Non-Black/ 66 >=60 mL/min/BSA 09/02/2018 9:02 AM [facility] [place] [facility] Comment: ----ADDITIONAL INFORMATION---- Estimated GFR calculated using the 2009 CKD_EPI creatinine equation. Specimen Anatomical Collection Method Collection Time Receive d Time (Source) Location / / Volume Laterality Blood (Blood, 09/02/2018 8:15 AM 09/03/19 8:15 Venous) CDT AM CDT Med Alvarez M.D. LAB BLOOD ADD-ON Performing Organization Address City/[facility] Phon e Number [address] [address] Sodium (09/02/2018 8:15 AM CDT) P athologist Signature Sodium, P 136 135 - 145 09/02/2018 [facility] mmol/L 9:02 AM [facility] Specimen Anatomical Collection Method Collection Time Receive d Time (Source) Location / / Volume Laterality Blood (Blood, 09/02/2018 8:15 AM 09/03/19 8:15 Venous) CDT AM CDT Med Alvarez M.D. LAB BLOOD ADD-ON Performing Organization Address City/[facility]/ZIP Code Phon e Number [address] [address] Potassium (09/02/2018 8:15 AM CDT) P athologist Signature Potassium, P 4.4 3.6 - 5.2 09/02/2018 [facility] mmol/L 9:02 AM [facility] Specimen Anatomical Collection Method Collection Time Receive d Time (Source) Location / / Volume Laterality Blood (Blood, 09/02/2018 8:15 AM 09/03/19 8:15 Venous) CDT AM CDT Med Alvarez M.D. LAB BLOOD ADD-ON Performing Organization Address City/State/[facility] Code Phon e Number [facility] [address] [place] [address] Lipid Panel (09/02/2018 8:15 AM CDT) P athologist Signature Cholesterol, 112 mg/dL 09/02/2018 [facility] Total 1:24 PM CDT [facility] Comment: ----REFERENCE VALUE---- Desirable: < 200 Borderline high: 200 - 239 High: > or = 240 Triglycerides 95 mg/dL 09/02/2018 1:24 PM CDT [facility] Comment: ----REFERENCE VALUE---- Normal: <150 Borderline high: 150-199 High: 200-499 Very high: > or =500 Cholesterol, HDL, S 49 >=40 mg/dL 09/02/2018 1:24 PM CDT [facility] Calculated LDL 44 mg/dL 09/02/2018 1:24 PM CDT [facility] Comment: ----REFERENCE VALUE---- Desirable: <100 Above Desirable: 100-129 Borderline high: 130-159 High: 160-189 Very high: > or =190 Cholesterol, Non-HDL, 63 mg/dL 09/02/2018 1:24 PM CDT [facility] [place] [facility] Comment: ----REFERENCE VALUE---- Desirable: <130 Above Desirable: 130-159 Borderline high: 160-189 High: 190-219 Very high: > or =220 Specimen Anatomical Collection Method Collection Time Receive d Time (Source) Location / / Volume Laterality Blood (Blood, 09/02/2018 8:15 AM 09/03/19 19 Venous) CDT 12:41 PM CDT Med Alvarez M.D. LAB BLOOD ADD-ON Performing Organization Address City/State/ZIP Code Phon e Number [facility] - [address] [place], [place] [address] [facility] (ABNORMAL) Hemoglobin A1c (09/02/2018 8:15 AM CDT) Patholo gist Method Time Signature Hemoglobin A1c, 6.7 (H) 4.0 - 5.6 09/02/2018 [facility] B % 3:47 PM CDT [facility] Comment: Hemoglobin A1c values greater than or eq ual to 6.5 percent are diagnostic for diabetes mellitus. ?? Diagnosis should be confirmed by repeat testing. ??In diabet ic patients, HbA1c goals should be discussed with healthcar e provider. Specimen Anatomical Collection Method Collection Time Receive d Time (Source) Location / / Volume Laterality Blood (Blood, 09/02/2018 8:15 AM 09/03/19 Venous) CDT 12:41 PM CDT Med Alvarez M.D. LAB BLOOD ADD-ON Performing Organization Address City/State/ZIP Code Phon e Number [facility] - [address] [place] [phone] [facility] documented in this encounter Visit Diagnoses Diagnosis Diabetes Mellitus Type 2 (HCC) - Primary Diabetes Mellitus Type 2 With Diabetic N europathy (HCC) Hyperlipidemia Hypertension Essential Primary documented in this encounter Care Teams Contract Clerk Automobile Relationship Specialty Start Date End Date Kristal Galeana M.D. PCP - General Family Medicine 01/19/18 11/13/18 documented as of this encounter
--- OUTSIDE RECORDS SUMMARY | 2022-02-03 15:08 | XMS_ITS | Encounter Summary ---
:1940 Author Organization [facility] Address [address] [place] [address] Care Team Providers Name Role Phone Kristal Galeana M.D. Primary Care Provider Encounter Details Date Type Department Care Team Description 09/02/2018 Hospital Encounter Department of Med Alvarez Mellitus Type 2 (HCC); Laboratory Medicine Alonso Gardner Hyperlipidemia; in [address] Hypertension Essential Primary [place], [place] 411 [facility] [address] [place], [place] [phone] (Work) [phone] Social History Tobacco Use Types Packs/Day Years [...] How often do you attend hindu or nondenominational services? Patien t refused 10/29/2020 Do you [...] 07/0 06/200902/14/2020 (FISH OIL ORAL) mouth. hydroCHLOROthiazide Take 1 tablet (50 90 tablet 3 8 01/18/2019 (HYDRODIURIL) 50 mg tablet mg total) by mouth daily. losartan (COZAAR) 100 mg Take 1 tablet 90 tablet 3 03/04/20 18 01/18/2019 tablet (100 mg total) by mouth daily. metFORMIN (GLUCOPHAGE) 500 Take 1 tablet 180 tablet 3 201701/18/2019 mg tablet (500 mg total) by mouth 2 (two) times a day. ONETOUCH ULTRA BLUE TEST daily. for 3 01/07/2018 08/16/2020 STRIP strips testing rosuvastatin (CRESTOR) 10 Take 1 tablet (10 100 tablet 3 03/10/2019 mg tablet mg total) by mouth daily. documented as of this encounter Plan of Treatment Not on filedocumented as of this encounter Procedures Procedure Name Priority Date/Time Associated Diagnosis Comme nts LIPID PANEL, S Routine 09/02/2018 8:15 AM Hyperlipidemia Resul ts for this CDT procedure are i n the results section. SODIUM, S/P Routine 09/02/2018 8:15 AM Hypertension Essential Results for this CDT Primary procedure are i n the results section. POTASSIUM, S/P Routine 09/02/2018 8:15 AM Hypertension Essenti al Results for this CDT Primary procedure are i n the results section. HEMOGLOBIN A1C, B Routine 09/02/2018 8:15 AM Diabetes Mellitus Type Results for this CDT 2 (HCC) procedure are i n the results section. CREATININE WITH Routine 09/02/2018 8:15 AM Hypertension Essent ial Results for this EGFR, S/P CDT Primary procedure are i n the results section. documented in this encounter Results Creatinine with Estimated GFR (09/02/2018 8:15 AM CDT) athologist Signature Creatinine 1.06 0.74 - 09/02/2018 [facility] 1.35 mg/dL 9:02 AM [facility] eGFR-Black/Afri 77 >=60 09/02/2018 [facility] can [place] mL/min/BSA 9:02 AM T [facility] Comment: ----ADDITIONAL INFORMATION---- Estimated GFR calculated using the 2009 CKD_EPI creatinine equation. eGFR Non-Black/ 66 >=60 mL/min/BSA 09/02/2018 9:02 AM [facility] Comment: ----ADDITIONAL INFORMATION---- Estimated GFR calculated using the 2009 CKD_EPI creatinine equation. Specimen Anatomical Collection Method Collection Time Receive d Time (Source) Location / / Volume Laterality Blood (Blood, 09/02/2018 8:15 AM 09/03/19 8:15 Venous) CDT AM CDT Med Alvarez M.D. LAB BLOOD ADD-ON Performing Organization Address City/[facility] Code Phon e Number [address] [address] Sodium (09/02/2018 8:15 AM CDT) athologist Signature Sodium, P 136 135 - 145 09/02/2018 [facility] mmol/L 9:02 AM CDT [facility] Specimen Anatomical Collection Method Collection Time Receive d Time (Source) Location / / Volume Laterality Blood (Blood, 09/02/2018 8:15 AM 09/03/19 8:15 Venous) CDT AM CDT Med Alvarez M.D. LAB BLOOD ADD-ON Performing Organization Address City/[facility]/ZIP [facility] Phon e Number [address] [address] Potassium (09/02/2018 8:15 AM CDT) athologist Signature Potassium, P 4.4 3.6 - 5.2 09/02/2018 [facility] mmol/L 9:02 AM CDT [facility] Specimen Anatomical Collection Method Collection Time Receive d Time (Source) Location / / Volume Laterality Blood (Blood, 09/02/2018 8:15 AM 09/03/19 8:15 Venous) CDT AM CDT Med Alvarez M.D. LAB BLOOD ADD-ON Performing Organization Address City/[facility] Phon e Number [address] [phone] Lipid Panel (09/02/2018 8:15 AM CDT) athologist Signature Cholesterol, 112 mg/dL 09/02/2018 [facility] Total 1:24 PM CDT [facility] Comment: ----REFERENCE VALUE---- Desirable: < 200 Borderline high: 200 - 239 High: > or = 240 Triglycerides 95 mg/dL 09/02/2018 1:24 PM CDT [facility] Comment: ----REFERENCE VALUE---- Normal: <150 Borderline high: 150-199 High: 200-499 Very high: > or =500 Cholesterol, HDL, S 49 >=40 mg/dL 09/02/2018 1:24 PM CDT [facility] Calculated LDL 44 mg/dL 09/02/2018 1:24 PM CDT [facility] Comment: ----REFERENCE VALUE---- Desirable: <100 Above Desirable: 100-129 Borderline high: 130-159 High: 160-189 Very high: > or =190 Cholesterol, Non-HDL, 63 mg/dL 09/02/2018 1:24 PM CDT [facility] [place] [facility] Comment: ----REFERENCE VALUE---- Desirable: <130 Above Desirable: 130-159 Borderline high: 160-189 High: 190-219 Very high: > or =220 Specimen Anatomical Collection Method Collection Time Receive d Time (Source) Location / / Volume Laterality Blood (Blood, 09/02/2018 8:15 AM 09/03/19 Venous) CDT 12:41 PM CDT Med Alvarez M.D. LAB BLOOD ADD-ON Performing Organization Address City/[facility]/ZIP Code Phon e Number [facility] - [address] (ABNORMAL) Hemoglobin A1c (09/02/2018 8:15 AM CDT) [facility] Method Time Signature Hemoglobin A1c, 6.7 (H) 4.0 - 5.6 09/02/2018 [facility] B % 3:47 PM CDT [facility] Comment: Hemoglobin A1c values greater than or [...] M.D. LAB BLOOD ADD-ON Performing Organization Address City/[facility]/ZIP Code Phon e Number [facility] - [address] documented in this encounter Visit Diagnoses Diagnosis Diabetes Mellitus Type 2 (HCC) Hyperlipidemia Hypertension Essential Primary documented in this encounter Care Teams Member Of The Legislative Council Relationship Specialty Start Date End Date Kristal Galeana M.D. PCP - General Family Medicine 01/19/18 11/13/18 documented as of this encounter
--- OUTSIDE RECORDS SUMMARY | 2022-02-03 15:08 | XMS_ITS | Encounter Summary ---
:1940 Author Organization [facility] Address [address] [place] [address] Care Team Providers Name Role Phone Kristal Galeana M.D. Primary Care Provider Encounter Details Date Type Department Care Team Description 02/28/2018 Hospital Encounter Department of Kristal Galeana Diabjacqueline es Mellitus Laboratory Medicine [place] Type 2 (HCC) in [address] [phone] [phone] Social History Tobacco Use Types Packs/Day Years [...] 10/29/2020 relatives? How often do you attend orthodox or tenriism services? Patien t refused 10/29/2020 Do you belong to any clubs or organizations such as Nabil borrero orthodox groups, unions, fraternal or athletic groups, [...] TAKE 1 TABLET BY 90 tablet 3 02/14/2018 03/04/2018 (HYDRODIURIL) 50 mg tablet MOUTH DAILY losartan (COZAAR) 100 mg TAKE 1 TABLET BY 90 tablet 3 02/1403/04/2018 tablet MOUTH DAILY metFORMIN (GLUCOPHAGE) 500 TAKE 1 TABLET BY 180 tablet 3 05/201703/04/2018 mg tablet MOUTH TWO TIMES A DAY ONETOUCH ULTRA BLUE TEST daily. for 3 01/07/2018 08/16/2020 STRIP strips testing rosuvastatin (CRESTOR) 10 Take 1 tablet (10 100 tablet 3 03/201803/04/2018 mg tablet mg total) by mouth daily. documented as of this encounter Plan of Treatment Not on filedocumented as of this encounter Procedures Procedure Name Priority Date/Time Associated Diagnosis Comme nts ALBUMIN, RANDOM, U Routine 02/28/2018 8:40 AM Diabetes Mellitu s Results for this CDT Type 2 (HCC) procedure are i n the results section. documented in this encounter Results Microalbumin, Random, Urine (02/28/2018 8:40 AM CDT) athologist Signature Microalbumin 9.3 mg/L 02/28/2018 [facility] 2:38 PM CDT [facility] Comment: ----ADDITIONAL INFORMATION---- This test has been modified from the valentin hurtado's instructions. Its performance characteri stics were determined by [facility] in a manner co nsistent with CLIA requirements. This test has not bee n cleared or approved by the U.S. Food and Drug Admin istration. Creatinine 125 mg/dL 02/28/2018 2:38 PM CDT [facility] Albumin/Creatinine 7 <17 mg/g 02/28/2018 2:38 PM CD T [facility] Specimen Anatomical Collection Method Collection Time Receive d Time (Source) Location / / Volume Laterality Urine (Urine, 02/28/2018 8:40 AM 02/29/20 18 1:31 Clean Catch) CDT PM CDT Kristal Galeana M.D. LAB URINE ORDERABLES Performing Organization Address City/State/ZIP Code Phon e Number [facility] - [address] documented in this encounter Visit Diagnoses Diagnosis Diabetes Mellitus Type 2 (HCC) documented in this encounter Care Teams Pre Press Operator Relationship Specialty Start Date End Date Kristal Galeana M.D. PCP - General Family Medicine 01/19/18 11/13/18 documented as of this encounter
--- OUTSIDE RECORDS SUMMARY | 2022-02-03 15:08 | XMS_ITS | Encounter Summary ---
:1940 Author Organization [facility] Address [address] [place] [address] Care Team Providers Name Role Phone Lexus Fowler M.D., M.P.H. Primary Care Provider [phone] Reason for Referral Outpatient (Routine) - Closed Specialty Diagnoses / Procedures Referred By Contact Refer red To Contact Orthopedic Surgery Roslyn Veliz APRN, [place] C.N.P. [address] [place] [phone] Referral ID Status Reason Start Date Expiration Date Visits Requ ested Visits Authorized [id number] Closed 12/12/2018 12/12/2019 1 1 Reason for Visit Outpatient (Routine) - Closed Specialty Diagnoses / Procedures Referred By Contact Refer red To Contact Orthopedic Surgery Roslyn Veliz APRN, [place] [facility] C.N.P. [address] [place] [phone] Referral ID Status Reason Start Date Expiration Date Visits Requ ested Visits Authorized [id number] Closed 10/03/2018 10/03/2019 1 1 Encounter Details Date Type Department Care Team Description 12/12/2018 Procedure visit Department of Roslyn Veliz Dystrophi c Toenail; Orthopedic Surgery in [place], C.N. P. Diabetes Mellitus Type 2 With Diabetic N europathy (HCC); [place], [place] 200 [facility] Callus [place] Foot [address] [place] [phone] Social History Tobacco Use Types Packs/Day Years [...] How often do you attend jainism or christian services? Patien t refused 10/29/2020 [...] Progress Notes Roslyn Veliz, [place], C.N.P. - 12/12/2018 10:00 AM CDT SUBJECTIVE Pain reported: 07/24 right big toe CHIEF COMPLAINT / REASON FOR VISIT Vinayak Vazquez is a 78 y.o. male accompanied by his who presents for trimming of toenails and paring calluses and is under the care of Lexus Fowler M.D., M.P.H.. HISTORY OF PRESENT ILLNESS Mr. Vazquez accompanied by his presents to the [facility] Pod[facility] for trimming of his dystrophic toenails and paring a pre ulcerative callus. The patient wears New Balance shoes with molded inserts. He states that he gets these insert from a place out town and that Medicare covers the cost. He has had custom inserts from [employer] in the past. His past medical history is significant for type 2 diabetes mellitus with neuropathy, callus and history of diabetic foot ulcer. His right big toe had been injured and a lawn mowing accident years ago. Claudication: Negative Burning: Negative Paresthesias: Numbness in both feet right greater than left Active care for diabetes mellitus type 2: Last seen Dr. Kristal Galeana in Family Medicine on 09/22/18. OBJECTIVE PHYSICAL EXAM General: Alert, oriented and [...] Skin temperature changes: Bilateral feet are warm Boron/calluses: Hyperkeratotic buildup over the right hallux plantar medial surface with sub callus discoloration consistent with old blood Neurological: Monofilament testing: Right 1/5 and left 3/5 ?? ASSESSMENT / PLAN #1 Pre-ulcerative callus #2 Dystrophic toenails #3 Diabetes mellitus type 2 with peripheral neuropathy #4 Hypertrophied toenails With the patient's permission, 1 lesion was pared with a number 15 blade and 10 toenails were trimmed with nippers. Reddish discoloration remains beneath the skin of the right big toe callus. There is no fluctuance, erythema, swelling and no drainage. I provided him with a prescription to have the inserts modified to offload pressure beneath the right big toe. We discussed the risks of pre ulcerativecalluses becoming ulcerated, or infected and possibly leading to amputation. He is to continue wearing supportive shoes at all times with the custom insert. I reviewed signs symptoms of infection. Provided the patient with my card, reviewed signs/symptoms of infection and discussed how to reach me shou ld concerns arise for infection or pain. ?? [...] Outpatient Referral Routine Ex pected: office visit 03/06/2019 (clinic) (Approximate), Expires: 12/12/2021 documented as of this encounter Visit Diagnoses Diagnosis Dystrophic Toenail Diabetes Mellitus Type 2 With Diabetic N europathy (HCC) Callus Boron Foot documented in this encounter Care Teams Form Designer Relationship Specialty Start Date End Date Lexus Fowler M.D., M.P.H. PCP - General 11/14/18 11/13/21 [address] [place] [address] documented as of this encounter
--- OUTSIDE RECORDS SUMMARY | 2022-02-03 15:08 | XMS_ITS | Encounter Summary ---
:1940 Author Organization [facility] Address [address] [place] [address] Care Team Providers Name Role Phone Kristal Galeana M.D. Primary Care Provider Encounter Details Date Type Department Care Team Description 01/24/2018 Orders Only Department of Family Kristal Galeana M.D. Medicine, [address] [place] [address] [address] [facility] [place] [address] [phone] Social History Tobacco Use Types Packs/Day Years [...] How often do you attend mosque or mu-ism services? Patien t refused 10/29/2020 [...] on filedocumented in this encounter Care Teams Vp Organizational Development Relationship Specialty Start Date End Date Kristal Galeana M.D. PCP - General Family Medicine 01/19/18 11/13/18 documented as of this encounter
--- OUTSIDE RECORDS SUMMARY | 2022-02-03 15:08 | XMS_ITS | Encounter Summary ---
:1940 Author Organization [facility] Address [address] [place] [address] Care Team Providers Name Role Phone Reuben Cavazos Primary Care Provider Unavailable Reason for Referral Outpatient (Routine) - Closed Specialty Diagnoses / Procedures Referred By Contact Refer red To Contact Orthopedic Surgery Roslyn Veliz APRN, [place] C.N.PClarence [address] [place] [phone] Referral ID Status Reason Start Date Expiration Date Visits Requ ested Visits Authorized [id number] Closed 10/13/2017 10/13/2018 1 1 Encounter Details Date Type Department Care Team Description 10/13/2017 Procedure visit Department of Roslyn Veliz Callus Co rn Foot (Primary Dx); Orthopedic Surgery in [place] C.N. PClarence Diabetes Mellitus Type 2 (HCC); [place], [place] [address] [facility] Diabetes Mellitus Type 2 With Diabetic N europathy (HCC) [address] [place] [address] [phone] Social History Tobacco Use Types Packs/Day Years [...] 10/29/2020 relatives? How often do you attend latter-day or jainism services? Patien t refused 10/29/2020 Do you belong to any clubs or organizations such as Nabil borrero latter-day groups, unions, fraternal or athletic groups, or [...] on file documented as of this encounter Consult Notes Roslyn Veliz APRN, C.N.P. - 10/13/2017 1:30 PM CDT SUBJECTIVE Pain reported: Site 1 Pain Score: 4, Pain Location: Foot (Callas on bottom of both feet), (10/13/17 1319 : Myah Weaver) REASON FOR CONSULT Vinayak Vazquez is a 77 y.o. male who presents for evaluation of calluses with possible ulceration andis under the care of Xavier Valdez. HISTORY OF PRESENT ILLNESS Mr. Vazquez presents to the [facility] Podiatry Clinic with calluses on bilateral [...] pairs of custom-made inserts from [employer]. 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 All3 calluses have sub callus micro hemorrhage. There is no erythema, no fluctuance and no drainage. DIAGNOSTICS Hemoglobin A1c, B Date Value Ref Range Status 09/06/2017 6.8 (H) 4.0 - 5.6 % Final Comment: Hemoglobin A1c values greater than or equal to 6.5 percent are diagnostic for diabetes mellitus. Diagnosis should be confirmed by repeat testing. In diabetic patients, HbA1c goals should be discussed with healthcare provider. Sedimentation Rate, B Date Value Ref Range Status 09/21/2014 2 0 - 22 MM/1 H Final ASSESSMENT / PLAN #1 Pre-ulcerative calluses #2 Diabetes mellitus type 2 with peripheral neuropathy Three lesions were repaired with a number 15 blade. There remains less than 1 mm pinpoint discoloration beneath each callus. Skin is intact. Postprocedure pain ratin/10. Provided the patient with my card, reviewed signs/symptoms of infection and discussed how to reach me should concerns arise for infection or pain. I recommended that he return to [facility] for adjustment to his inserts to offload pressure over callused areas. Procedural Pause Procedural pause conducted to verify: correct patient identity, procedure to be performed, and as applicable, correct side and site, correct patient position, and availability of special equipment or special requirements. PATIENT EDUCATION TEMPLATE Ready to learn, no apparent learning barriers were identified; learning preferences include listening. Explained diagnosis and treatment plan; patient expressed understanding of the content. Informed Consent: Discussed the risks, benefits, alternatives and the necessity of other members of the health care team participating in the procedure. All questions answered and consent given. documented in this encounter Plan of Treatment Scheduled Referrals Name Type Priority Associated Diagnoses Order S chedule Ortho Surg / Outpatient Referral Routine Expected : Podiatry estab pt 01/13/2018 visit (clinic) (Approximate) , Expires: 10/13/2020 documented as of this encounter Visit Diagnoses Diagnosis Callus [place] Foot - Primary Diabetes Mellitus Type 2 (HCC) Diabetes Mellitus Type 2 With Diabetic N europathy (HCC) documented in this encounter Care Teams Wire Frame Lamp Shade Maker Relationship Specialty Start Date End Date Reuben Cavazos B.M.B.S. PCP - General Family Medicine 11/19/14 11/12/17 documented as of this encounter
--- OUTSIDE RECORDS SUMMARY | 2022-02-03 15:08 | XMS_ITS | Encounter Summary ---
:1940 Author Organization [facility] Address [address] [place] [address] Care Team Providers Name Role Phone Kristal Galeana M.D. Primary Care Provider Encounter Details Date Type Department Care Team Description 02/28/2018 Hospital Encounter Department of Reuben Cavazos Essential Primary; Laboratory Medicine P, B.M.B.S. Diabetes Mellitus Type 2 (HCC); in [place], [place] General Medical Examination Adult [address] [place] [address] Social History Tobacco Use Types [...] How often do you attend yarsani or christian services? Patien t refused 10/29/2020 [...] Associated Diagnosis Comme nts SODIUM, S/P Routine 02/28/2018 7:58 AM Hypertension Results f or this CDT Essential Primary procedure are in the results section. PROSTATE-SPECIFIC Routine 02/28/2018 7:58 AM General Medical R esults for this AG (PSA) CDT Examination Adult procedure are in DIAGNOSTIC, S the results section. POTASSIUM, S/P Routine 02/28/2018 7:58 AM Hypertension Results for this CDT Essential Primary procedure are in the results section. HEMOGLOBIN A1C, B Routine 02/28/2018 7:58 AM Diabetes Mellitus Results for this CDT Type 2 (HCC) procedure are i n the results section. CREATININE WITH Routine 02/28/2018 7:58 AM Hypertension Result s for this EGFR, S/P CDT Essential Primary procedure are in the results section. documented in this encounter Results PSA (Prostate-Specific Antigen), Diagnostic (02/28/2018 7:58 AM CDT) athologist Signature Prostate-Speci 0.98 <=6.5 02/28/2018 [facility] fic Ag ng/mL 2:29 PM CDT LABORATORIES - [facility] Comment: ----ADDITIONAL INFORMATION---- The testing method is an electrochemilum inescence assay manufactured by [employer] and performed on the Modular or Zhang system . Values obtained with different assay met hods or kits may be different and cannot be used inte rchangeably. Test results cannot be interpreted as ab solute evidence for the presence or absence of malignant disease. Specimen Anatomical Collection Method Collection Time Receive d Time (Source) Location / / Volume Laterality Blood (Blood, 02/28/2018 7:58 AM 02/29/20 18 1:08 Venous) CDT PM CDT Kristal Galeana M.D. LAB BLOOD ADD-ON Performing Organization Address City/State/ZIP Code Phon e Number [facility] LABORATORIES - [address] [place], [place] [address] [facility] Sodium (02/28/2018 7:58 AM CDT) athologist Signature Sodium, P 136 135 - 145 02/28/2018 [facility] mmol/L 9:11 AM [facility] Specimen Anatomical Collection Method Collection Time Receive d Time (Source) Location / / Volume Laterality Blood (Blood, 02/28/2018 7:58 AM 02/29/20 7:58 Venous) CDT AM CDT Kristal Galeana M.D. LAB BLOOD ADD-ON Performing Organization Address City/[facility] Code Phon e Number [facility] [address] [place] [address] Creatinine with Estimated GFR (02/28/2018 7:58 AM CDT) athologist Signature Creatinine 1.09 0.74 - 02/28/2018 [facility] 1.35 mg/dL 9:11 AM [facility] eGFR-Black/Afri 75 >=60 02/28/2018 [facility] can Welsh mL/min/BSA 9:11 AM [facility] Comment: ----ADDITIONAL INFORMATION---- Estimated GFR calculated using the 2009 CKD_EPI creatinine equation. eGFR Non-Black/ 65 >=60 mL/min/BSA 02/28/2018 9:11 AM [facility] Comment: ----ADDITIONAL INFORMATION---- Estimated GFR calculated using the 2009 CKD_EPI creatinine equation. Specimen Anatomical Collection Method Collection Time Receive d Time (Source) Location / / Volume Laterality Blood (Blood, 02/28/2018 7:58 AM 02/29/20 18 7:58 Venous) CDT AM CDT Kristal Galeana M.D. LAB BLOOD ADD-ON Performing Organization Address City/[facility]/ZIP Code Phon e Number [facility] [address] [place] [address] (ABNORMAL) Hemoglobin A1c (02/28/2018 7:58 AM CDT) [facility] Method Time Signature Hemoglobin A1c, 6.7 (H) 4.0 - 5.6 02/28/2018 [facility] B % 1:36 PM CDT [facility] - [facility] Comment: Hemoglobin A1c values greater than or eq ual to 6.5 percent are diagnostic for diabetes mellitus. ?? Diagnosis should be confirmed by repeat testing. ??In diabet ic patients, HbA1c goals should be discussed with healthcar e provider. Specimen Anatomical Collection Method Collection Time Receive d Time (Source) Location / / Volume Laterality Blood (Blood, 02/28/2018 7:58 AM 02/29/20 18 1:13 Venous) CDT PM CDT Kristal Galeana M.D. LAB BLOOD ADD-ON Performing Organization Address City/State/ZIP Code Phon e Number [facility] LABORATORIES - [address] [facility] [address] [place], [place] [address] [facility] Potassium (02/28/2018 7:58 AM CDT) P athologist Signature Potassium, P 4.3 3.6 - 5.2 02/28/2018 [facility] mmol/L 9:11 AM CDT [facility] Specimen Anatomical Collection Method Collection Time Receive d Time (Source) Location / / Volume Laterality Blood (Blood, 02/28/2018 7:58 AM 02/29/20 18 7:58 Venous) CDT AM CDT Kristal Galeana M.D. LAB BLOOD ADD-ON Performing Organization Address City/State/ZIP Code Phon e Number [facility] [address] [place] [address] documented in this encounter Visit Diagnoses Diagnosis Hypertension Essential Primary Diabetes Mellitus Type 2 (HCC) General Medical Examination Adult documented in this encounter Care Teams Varnish Melter Relationship Specialty Start Date End Date Kristal Galeana M.D. PCP - General Family Medicine 01/19/18 11/13/18 documented as of this encounter
--- OUTSIDE RECORDS SUMMARY | 2022-02-03 15:08 | XMS_ITS | Encounter Summary ---
:1940 Author Organization [facility] Address [address] [place] [address] Care Team Providers Name Role Phone Lexus Fowler M.D., M.P.H. Primary Care Provider [phone] Reason for Visit Reason Comments Med Refill Encounter Details Date Type Department Care Team Description 01/18/2019 Refill Department of [facility] Kasi Alvarez M.D. Med Refill Medicine, [facility] [address] [place] [address] [place] [address] [address] [facility] [place] [address] [phone] Social History Tobacco Use Types Packs/Day Years [...] 10/29/2020 relatives? How often do you attend episcopalian or methodist services? Patien t refused 10/29/2020 Do you belong to any clubs or organizations such as Not aske d episcopalian groups, unions, fraternal or athletic groups, or [...] on filedocumented in this encounter Care Teams Atmospheric Technician Relationship Specialty Start Date End Date Lexus Fowler M.D., M.P.H. PCP - General 11/14/18 11/13/21 [address] [place] [address] documented as of this encounter
--- OUTSIDE RECORDS SUMMARY | 2022-02-03 15:08 | XMS_ITS | Encounter Summary ---
:1940 Author Organization [facility] Address [address] [place] [address] Care Team Providers Name Role Phone Kristal Galeana M.D. Primary Care Provider Reason for Referral Outpatient (Routine) - Closed Specialty Diagnoses / Procedures Referred By Contact Refer red To Contact Orthopedic Surgery Roslyn Veliz APRN, [place] [facility] C.N.P. [address] [place] [phone] Referral ID Status Reason Start Date Expiration Date Visits Requ ested Visits Authorized [id number] Closed 09/05/2018 09/05/2019 1 1 Reason for Visit Outpatient (Routine) - Closed Specialty Diagnoses / Procedures Referred By Contact Refer red To Contact Orthopedic Surgery Roslyn Veliz APRN, [place] [facility] C.N.P. [address] [place] [phone] Referral ID Status Reason Start Date Expiration Date Visits Requ ested Visits Authorized [id number] Closed 03/10/2018 03/10/2019 1 1 Encounter Details Date Type Department Care Team Description 09/05/2018 Procedure visit Department of Roslyn Veliz Callus Co rn Foot; Orthopedic Surgery in [place] C.N. P. Diabetes Mellitus Type 2 With Diabetic N europathy (HCC) [place], [place] [address] [facility] [address] [place] [address] [phone] Social History Tobacco Use Types Packs/Day Years [...] How often do you attend episcopal or restoration services? Patien t refused 10/29/2020 [...] Progress Notes Roslyn Veliz, [place], C.N.P. - 09/05/2018 11:00 AM CDT SUBJECTIVE Pain reported: 0/10 CHIEF COMPLAINT / REASON FOR VISIT Vinayak Vazquez is a 78 y.o. male accompanied by his who presents for follow- up of calluses and pre ulcerative plantar calluses and is under the care of Kristal Galeana M.D.. HISTORY OF PRESENT ILLNESS Mr. Vazquez presents to the [facility] Podiatry [facility] with calluses on bilateral feet plantar surface. He states that he has his toenails taking care of in a salon and that they also work on his calluses. The patient wears New Balance shoes with [id number] inserts. He has had custom inserts from[employer], butstates that these were more expensive and in seem to work any better. He and his return from [place] a few weeks ago. He states he was wearing flip-flops to the pool and developed a lesion on the right great toe plantar surface. He went back to wearing his new balance shoes and there has been steady improvement to in the right big toe. His past medical history is significant for [...] Skin temperature changes: Bilateral feet are warm [place]/calluses: Hyperkeratotic buildup over the right 5th and [...] isintact. Left 1 does have a persistent area of discoloration consistent with sub callus blood blister. I recommended that he wear is new balance shoes at all times. I will see him back in 1 month. I reviewed signs symptoms of infection. I advised him to call me immediately [...] Referral Routine Expected : Podiatry estab pt 10/03/2018 visit (clinic) (Approximate) , Expires: 09/05/2021 documented as of this encounter Visit Diagnoses Diagnosis Callus [place] Foot Diabetes Mellitus Type 2 With Diabetic N europathy (HCC) documented in this encounter Care Teams Closing Agent Relationship Specialty Start Date End Date Kristal Galeana M.D. PCP - General Family Medicine 01/19/18 11/13/18 documented as of this encounter
--- OUTSIDE RECORDS SUMMARY | 2022-02-03 15:08 | XMS_ITS | Encounter Summary ---
:1940 Author Organization [facility] Address [address] [place] [address] Care Team Providers Name Role Phone Kristal Galeana M.D. Primary Care Provider Encounter Details Date Type Department Care Team Description 01/26/2018 Orders Only Department of Family Kristal Galeana Diabe gil Mellitus Type 2 (HCC) (Primary Dx); Medicine, Estiven Osborn M.D. Hypertension Essential Primary; Clinic [address] General [place] [address] [address] [facility] [phone] [place] [address] (Work) [phone] Social History Tobacco Use Types Packs/Day Years [...] 10/29/2020 relatives? How often do you attend congregational or restorationism services? Patien t refused 10/29/2020 Do you belong to any clubs or organizations such as Nabil borrero congregational groups, unions, fraternal or athletic groups, or [...] place to sleep or slept in a long-term (including now)? Sex Assigned at Date Recorded Not on file documented as of this encounter Plan of Treatment Not on filedocumented as of this encounter Results Microalbumin, Random, Urine (02/28/2018 8:40 AM CDT) athologist Signature Microalbumin 9.3 mg/L 02/28/2018 [facility] 2:38 PM CDT LABORATORIES [facility] Comment: ----ADDITIONAL INFORMATION---- This test has been modified from the man ufacturer's instructions. Its performance characteri stics were determined by [facility] in a manner co nsistent with CLIA requirements. This test has not bee n cleared or approved by the U.S. Food and Drug Admin istration. Creatinine 125 mg/dL 02/28/2018 2:38 PM CDT [facility] PUS Albumin/Creatinine 7 <17 mg/g 02/28/2018 2:38 PM CD T [facility] LABORATORIES [facility] PUS Specimen Anatomical Collection Method Collection Time Receive d Time (Source) Location / / Volume Laterality Urine (Urine, 02/28/2018 8:40 AM 02/29/20 18 1:31 Clean Catch) CDT PM CDT Kristal Galeana M.D. LAB URINE ORDERABLES Performing Organization Address City/State/ZIP Code Phon e Number [facility] LABORATORIES - [address] [place], [place] [address] [facility] PSA (Prostate-Specific Antigen), Diagnostic (02/28/2018 7:58 AM CDT) athologist Signature Prostate-Speci 0.98 <=6.5 02/28/2018 [facility] fic Ag ng/mL 2:29 PM CDT LABORATORIES [facility] Comment: ----ADDITIONAL INFORMATION---- The testing method is [...] Laterality Blood (Blood, 02/28/2018 7:58 AM 02/29/20 1:08 Venous) CDT PM CDT Kristal Galeana M.D. LAB BLOOD ADD-ON Performing Organization Address City/State/ZIP Code Phon e Number [facility] LABORATORIES - [address] [place], [place] [address] [facility] Sodium (02/28/2018 7:58 AM CDT) athologist Signature Sodium, P 136 135 - 145 02/28/2018 [facility] mmol/L 9:11 AM [facility] Specimen Anatomical Collection Method Collection Time Receive d Time (Source) Location / / Volume Laterality Blood (Blood, 02/28/2018 7:58 AM 02/29/20 18 7:58 Venous) CDT AM CDT Kristal Galeana M.D. LAB BLOOD ADD-ON Performing Organization Address City/[facility]/ZIP Code Phon e Number [facility] [address] [place] [address] Creatinine with Estimated GFR (02/28/2018 7:58 AM CDT) athologist Signature Creatinine 1.09 0.74 - 02/28/2018 [facility] 1.35 mg/dL 9:11 AM [facility] eGFR-Black/Afri 75 >=60 02/28/2018 [facility] can Afghan mL/min/BSA 9:11 AM [facility] Comment: ----ADDITIONAL INFORMATION---- Estimated GFR calculated using the 2009 CKD_EPI creatinine equation. eGFR Non-Black/ 65 >=60 mL/min/BSA 02/28/2018 9:11 AM [facility] Afghan [facility] Comment: ----ADDITIONAL INFORMATION---- Estimated GFR calculated using the 2009 CKD_EPI creatinine equation. Specimen Anatomical Collection Method Collection Time Receive d Time (Source) Location / / Volume Laterality Blood (Blood, 02/28/2018 7:58 AM 10/15/20 18 7:58 Venous) CDT AM CDT Kristal Galeana M.D. LAB BLOOD ADD-ON Performing Organization Address City/[facility]/ZIP Code Phon e Number [facility] [address] [place] [address] (ABNORMAL) Hemoglobin A1c (02/28/2018 7:58 AM CDT) Patholo gist Method Time Signature Hemoglobin A1c, 6.7 (H) 4.0 - 5.6 02/28/2018 [facility] B % 1:36 PM CDT LABORATORIES - [facility] Comment: Hemoglobin A1c values greater than or eq ual to 6.5 percent are diagnostic for diabetes mellitus. ?? Diagnosis should be confirmed by repeat testing. ??In diabet ic patients, HbA1c goals should be discussed with healthcar e provider. Specimen Anatomical Collection Method Collection Time Receive d Time (Source) Location / / Volume Laterality Blood (Blood, 02/28/2018 7:58 AM 02/29/20 1:13 Venous) CDT PM CDT Kristal Galeana M.D. LAB BLOOD ADD-ON Performing Organization Address City/State/ZIP Code Phon e Number [facility]ATORIES - [address] [place], [place] [address] [facility] Potassium (02/28/2018 7:58 AM CDT) P athologist Signature Potassium, P 4.3 3.6 - 5.2 02/28/2018 [facility] mmol/L 9:[address] [facility] Specimen Anatomical Collection Method Collection Time Receive d Time (Source) Location / / Volume Laterality Blood (Blood, 02/28/2018 7:58 AM 02/29/20 18 7:58 Venous) CDT AM CDT Kristal Galeana M.D. LAB BLOOD ADD-ON Performing Organization Address City/State/ZIP Code Phon e Number [facility] [address] [place] [address] documented in this encounter Visit Diagnoses Diagnosis Diabetes Mellitus Type 2 (HCC) - Primary Hypertension Essential Primary General Medical Examination Adult documented in this encounter Care Teams Core Drill Operator Relationship Specialty Start Date End Date Kristal Galeana M.D. PCP - General Family Medicine 01/19/18 11/13/18 documented as of this encounter
--- OUTSIDE RECORDS SUMMARY | 2022-02-03 15:08 | XMS_ITS | Encounter Summary ---
:1940 Author Organization [facility] Address [address] [place] [address] Care Team Providers Name Role Phone Reuben Cavazos Primary Care Provider Unavailable Encounter Details Date Type Department Care Team Description 08/08/2017 Abstract DATA ABSTRACTION Provider, Historical Social History Tobacco Use Types Packs/Day Years [...] How often do you attend gnosticism or sabianism services? Patien t refused 10/29/2020 Do you belong to any clubs or organizations such as Not maye gissell gnosticism groups, unions, fraternal or athletic groups, [...] on filedocumented in this encounter Care Teams Mail Reader Relationship Specialty Start Date End Date Reuben Cavazos B.M.B.S. PCP - General Family Medicine 11/19/14 11/12/17 documented as of this encounter
--- OUTSIDE RECORDS SUMMARY | 2022-02-03 15:08 | XMS_ITS | Encounter Summary ---
:1940 Author Organization [facility] Address [address] [place] [address] Care Team Providers Name Role Phone Kristal Galeana M.D. Primary Care Provider Reason for Referral Outpatient (Routine) - Closed Specialty Diagnoses / Procedures Referred By Contact Refer red To Contact Family Medicine Kristal Galeana M.D. [address] [place] [address] Referral ID Status Reason Start Date Expiration Date Visits Requ ested Visits Authorized [id number] Closed 09/22/2018 09/22/2019 1 1 Reason for Visit Reason Comments Diabetes Outpatient (Routine) - Closed Specialty Diagnoses / Procedures Referred By Contact Refer red To Contact Family Medicine Diagnoses Diabetes Mellitus Type 2 (HCC) Med [address] Sonya Gupta [address] [place] [address] Referral ID Status Reason Start Date Expiration Date Visits Requ ested Visits Authorized [id number] Closed 03/04/2018 03/04/2019 1 1 Encounter Details Date Type Department Care Team Description 09/22/2018 Office Visit Department of Kristal Ramon Diabe gil 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 Diabetes Mellitus Type 2 (HCC); Clinic [address] Hyperte nsion Essential Primary; [place], [place] [address] [facility] [place] [facility]; [address] [place] [phone] Social History Tobacco Use Types Packs/Day Years [...] 10/29/2020 relatives? How often do you attend nondenominational or zoroastrian services? Patien t refused 10/29/2020 Do you belong to any clubs or organizations such as Nabil borrero nondenominational groups, unions, fraternal or athletic groups, or [...] Sign Reading Time Taken Comments Blood Pressure 130/68 09/22/2018 1:36 PM bp ganesh averag e CDT Pulse 59 09/22/2018 1:36 PM CDT Temperature - - Respiratory Rate - - Oxygen Saturation - - Inhaled Oxygen Concentration - - Weight 97 kg (213 lb 13.5 oz) 09/22/2018 1:36 PM CDT Height 180.5 cm (5' 11.06) 09/22/2018 1:36 PM CDT Body Mass Index 29.77 09/22/2018 1:36 PM CDT documented in this encounter Patient Instructions Patient InstructionsKristal Galeana M.D. - 09/22/2018 2:00 PM CDT - Hydrocortisone cream over the counter: use daily x 1 week in addition to Vanicream (which you can use several times a day) to help with the inflammation on the face - Continue using the ketoconazole shampoo/Head and Shoulders/Salzun Blue for the hair/ears/eyebrows documented in this encounter Progress Notes Kristal Galeana M.D. - 09/22/2018 2:00 PM CDT CHIEF COMPLAINT / REASON FOR VISIT Vinayak Vazquez is a 78 y.o. male who presents today for chronic disease managmenet. HISTORY OF PRESENT ILLNESS #1 Diabetes Mellitus, Type 2 #2 Diabetic peripheral neuropathy Diagnosed in 2000. Most recent A1c 6.7% on 09/02/18 (unchanged from 6 months previous). Currently taking metformin 500mg bid. Patient checks blood sugars daily. No tobacco use. Macrovascular complications include hypertension, dyslipidemia. Currently taking baby aspirin, simvastatin 40mg qhs and losartan 100mg daily. No Microvascular complications. Microalbumin and creatinine checked on 09/02/18 and were within normal limits. No recent vision changes, chest pain, shortness of breath, nausea, vomiting or diarrhea, edema, changes tonumbness/tingling or skin concerns. He sees a traveling auditor regularly. All immunizations up to date. #3 Hypertension Blood pressure today 130/68. Currently on losartan 100 milligrams daily and hydrochlorothiazide 50 milligrams daily. Most recent kidney function electrolytes on 09/02/2018 were within normal limits.No lightheadedness. #4 Dyslipidemia Lipids checked on 09/02/18 And showed a total cholesterol 112, HDL of 49, LDL 44 and triglycerides of95.. Currently on Simvastatin 40mg qhs. No myalgias. #5 Seborrheic dermatitis He Reports having some redness and irritation in his eyebrows, right ear, base of the right neck as well as over his nose and lower cheeks and no upside-down wide distribution over the last few days. He does use ketoconazole shampoo which is helped his head dermatitis and is wondering what to do with the other part of the rash. It is itchy but not painful. He has been using Vanicream. PHYSICAL EXAM BP 130/68 (BP Location: Left arm, Patient Position: Sitting) Comment: bp ganesh average Pulse (!) 59 Ht 180.5 cm Wt 97 kg BMI 29.77 kg/m?? GENERAL APPEARANCE: Well-appearing, attentive, alert and interactive with good eye contact; acting appropriately for age, in no apparent distress PSYCH: alert and orientated, affect appropriate SKIN: dry skin on a mildly erythematous base on the base of the hairline and over eyebrows and rightear, bridge of nose and base of cheeks is erythematous as well but not scaly HEENT: Conjunctiva clear, sclerae non-icteric. PERRL, EOMI. Hearing grossly intact, no aids. No rhinorrhea. LUNGS: Clear bilaterally without rales, rhonchi, wheezing or diminished breath sounds. Good excursions. Normal work of breathing, speaking in full sentences. HEART: RRR with normal S1, S2 without murmur, gallop, or rub heard. +1 radial pulses. No carotid bruits. EXTREMITIES: monofilament exam reveals decreased sensation to the bottom feet bilaterally as compared to the legs but is overall intact. He has a callous on his right big toe and on the right and lateral balls of the right foot that are being cared for by podiatry. No drainage. Pedal pulses +1 bilaterally but feet are cool to the touch. MEDICATIONS Current Outpatient Prescriptions: ??? B complex-vitamin (SUPER B-50) capsule, Take 1 tablet by mouth., Disp: , Rfl: ??? ascorbic acid, vitamin C, (ascorbic acid with lacey hips) 500 mg tablet, Take 1 tablet by mouth at bedtime., Disp: , Rfl: ??? ASPIRIN LOW DOSE ORAL, Take 1 capsule by mouth daily., Disp: , Rfl: ??? B-COMPLEX WITH VITAMIN [...] capsule by mouth daily., Disp: , Rfl: IMPRESSION/REPORT/PLAN #1 Diabetes Mellitus, Type 2 #2 Diabetic peripheral neuropathy Return visit in 6 months with an A1c prior. We will also do microalbumin at that time. He does get his foot care by Podiatry regularly as well as diabetic eye exams with no concerns for retinopathy at this time. ROS otherwise reassuring. Prescription written for diabetic shoes today. #3 Hypertension Blood pressure today 130/68. Will continuelosartan 100 milligrams daily and hydrochlorothiazide 50 milligrams daily with labs in a year. #4 Dyslipidemia Stable at this time. We discussed he could go down to 5 mg on the Crestor but he wanted to continue the 10 mg given that his labs are stable. I think this is reasonable. We will recheck in 1 year. #5 Seborrheic dermatitis Skin findings most consistent with seborrheic dermatitis. We discussed continuing the use of Vanicream regularly as well as doing ketoconazole / Head and Shoulders /Salzon Blue for the scalp. We discussed that he could do this in the eyebrows and ears well as but for the face that we would have him try [id number] hydrocortisone cream to help with the irritation on the face but only for a week to prevent skin thinning. This was written out for him on his AVS. Future Appointments Date Time Provider Department Center 10/03/2018 2:30 PM Roslyn Veliz APRN, C.N.P. [facility] Rodas documented in this encounter Plan of Treatment Scheduled Referrals Name Type Priority Associated Diagnoses Order S [facility] Hospital Outpatient Referral Routine Expec margoth: office visit 03/25/2019 (clinic) - Self (Approximate ), Expires: 09/22/2021 documented as of this encounter Results (ABNORMAL) Microalbumin, Random, Urine (03/08/2019 8:47 AM CDT) P athologist Signature Microalbumin 13.2 mg/L 03/08/2019 [facility] 1:44 PM CDT Comment: ----ADDITIONAL INFORMATION---- This test has been modified from the valentin hurtado's instructions. Its performance characteri stics were determined by [facility] in a manner co nsistent with CLIA [...] Organization Address City/State/ZIP Code Phon e Number [facility] - [address] [place] [address] [facility] PSA (Prostate-Specific Antigen), Diagnostic (03/08/2019 8:40 AM CDT) athologist Signature Prostate-Specif 0.76 <=6.5 ng/mL 03/08/2019 [facility] ic Ag 2:17 PM CDT Comment: ----ADDITIONAL INFORMATION---- The testing method is an electrochemilum inescence assay manufactured by [employer] and performed on the Modular or [...] Organization Address City/State/ZIP Code Phon e Number [facility] [address] [address] [facility] (ABNORMAL) Hemoglobin A1c (03/08/2019 8:40 AM CDT) athologist Signature Hemoglobin A1c, 6.6 (H) 4.0 - 5.6 03/08/2019 [facility] B % 12:46 PM CDT Comment: Hemoglobin [...] City/State/ZIP Code Phon e Number [facility] [address] [address] [facility] [address] documented in this encounter Visit Diagnoses Diagnosis Diabetes Mellitus Type 2 With Diabetic N europathy (HCC) - Primary Diabetes Mellitus Type 2 (HCC) Hypertension Essential Primary [facility] Hyperlipidemia documented in this encounter Care Teams Project Administrator Relationship Specialty Start Date End Date Kristal Galeana M.D. PCP - General Family Medicine 01/19/18 11/13/18 documented as of this encounter
--- OUTSIDE RECORDS SUMMARY | 2022-02-03 15:08 | XMS_ITS | Encounter Summary ---
:1940 Author Organization [facility] Address [address] [place] [address] Care Team Providers Name Role Phone Kristal Galeana M.D. Primary Care Provider Encounter Details Date Type Department Care Team Description 09/13/2018 Clinical Communication Department of Kushal Casas, Medicine, [facility] [address] [place] [address] [address] [facility] [address] [place] [address] Social History Tobacco Use Types Packs/Day Years [...] How often do you attend mosque or zoroastrian services? Patien t refused 10/29/2020 [...] or slept in a correction (including now)? Sex Assigned at Date Recorded Not on file documented as of this encounter Miscellaneous Notes Telephone Encounter - Yumiko Cavazos R.N. - 09/13/2018 3:05 PM CDT Message relayed to patient and his . Patient states they are having trouble logging into portal.Steps to find help(screen shots) being mailed out to them as requested. Also How to Create a patientOnline Service Account [employer] [id number] [phone] which has the helpline # for patients listed on it. Telephone Encounter - Yumiko Cavazos R.N. - 09/13/2018 2:48 PM CDT ----- Message from Kristal Galeana M.D. sent at 09/13/2018 2:34 PM CDT ----- Regarding: RE: Labs Here was the portal message I sent him right after below. Since it doesn't appear he checks it, can you call and let him know? Hamzah Vazquez, Overall your most recent labs appear stable without significant concerns. We can chat more when you come in for your appointment in September. Looking forward to seeing you! Dr. Galeana ----- Message ----- From: Belinda Crawford L.P.N. Sent: 09/12/2018 10:12 AM To: Kristal Galeana M.D. Subject: Labs Patient called in looking for his results from 09/02/18. Please review. Thanks documented in this encounter Plan of Treatment Not on filedocumented as of this encounter Visit Diagnoses Not on filedocumented in this encounter Care Teams Stator Plate Washer Relationship Specialty Start Date End Date Kervin, Kristal M, M.D. PCP - General Family Medicine 01/19/18 11/13/18 documented as of this encounter
--- OUTSIDE RECORDS SUMMARY | 2022-02-03 15:08 | XMS_ITS | Encounter Summary ---
:1940 Author Organization [facility] Address [address] [place] [address] Care Team Providers Name Role Phone Reuben Cavazos B.M.B.S. Primary Care Provider Unavailable Encounter Details Date Type Department Care Team Description 09/09/2017 Orders Only Department of Family Reuben Cavazos Dia betes Mellitus Type Medicine, [facility] B.M[facility]S. [address] [facility] [place], [place] [address] [place] [address] Social History Tobacco Use Types Packs/Day Years [...] How often do you attend congregational or religion services? Patien t refused 10/29/2020 [...] Visit Diagnoses Diagnosis Diabetes Mellitus Type 2 Without Complic ation (HCC) documented in this encounter Care Teams Print Shop Chief Clerk Relationship Specialty Start Date End Date Reuben Cavazos B.M.BClarenceS. PCP - General Family Medicine 11/19/14 11/12/17 documented as of this encounter
--- OUTSIDE RECORDS SUMMARY | 2022-02-03 15:09 | XMS_ITS | Encounter Summary ---
:1940 Author Organization [facility] Address [address] [place] [address] Care Team Providers Name Role Phone Eliezer RYAN D.O., Marco Monae Primary Care Provider Encounter Details Date Type Department Care Team Description 11/27/2011 Historical Ophthalmology [facility] Tania Michaels O.D. [address] [place], [place] [phone] (Wo rk) Social History Tobacco Use Types Packs/Day Years Used Date Smoking Tobacco: Never Assessed Alcohol Habits Answer Date Recorded How often [...] How often do you attend quaker or congregational services? Patien t refused 10/29/2020 Do you [...] encounter Progress Notes Tania Michaels O.D. - 11/27/2011 1:29 PM CDT Eye General CHIEF COMPLAINT diabetic exam HISTORY OF PRESENT ILLNESS Patient returns for diabetic eye exam. He feels his vision has been stable. Denies any flashes or new floaters. Patient denies ocular pain. Fasting glucose has been running about 90. Last HbA1c was 5.9on 09/04/11. IMPRESSION / REPORT / PLAN #1 Posterior Vitreous Detachment left eye The retina itself remains intact. I reviewed the symptoms of retinal detachment for which the patient should return immediately. #2 No Diabetic Retinopathy either eye We discussed this. The patient should return for any acute change in the vision. Otherwise the patient should be re-examined in one year. #3 Cataract both eyes Reviewed the symptoms of worsening cataracts for which the patient should return. 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 PCP - General 11/14/21 [address] [place] [id number] documented as of this encounter
--- OUTSIDE RECORDS SUMMARY | 2022-02-03 15:09 | XMS_ITS | Encounter Summary ---
:1940 Author Organization [facility] Address [address] [place] [address] Care Team Providers Name Role Phone Unavailable Primary Care Provider Unavailable Encounter Details Date Type Department Care Team Description 11/15/2009 Hospital Encounter HX NO MAPPING Social History Tobacco Use Types Packs/Day Years [...] 10/29/2020 relatives? How often do you attend latter day or protestant services? Patien t refused 10/29/2020 Do you belong to any clubs or organizations such as Nabil borrero latter day groups, unions, fraternal or athletic groups, or [...] Sig Dispensed Refills Start Date End Date calcium carbonate-vitamin Take 1 tablet by 0 05/1 05/2009 D3 (CALCIUM 600 + D,3,) mouth 2 (two) 1,500 mg (600 mg times a day. calcium)-400 unit per tablet DOCOSAHEXANOIC ACID/EPA Take 1 capsule by 0 11/15 (FISH OIL ORAL) mouth 2 (two) times a day. 1200 mg capsule garlic capsule Take 1 capsule by 0 12/11/2008 mouth daily. 1200 mg MULTIVITAMIN (MULTIPLE Take 1 tablet by 0 009 VITAMINS ORAL) mouth daily. vitamin E 400 unit capsule Take 1 capsule by 0 mouth daily. docosahexaenoic acid/epa Take 1 capsule by 0 07/0 06/200902/14/2020 (FISH OIL ORAL) mouth. documented as of this encounter Plan of Treatment Not on filedocumented as of this encounter Visit Diagnoses Not on filedocumented in this encounter
--- OUTSIDE RECORDS SUMMARY | 2022-02-03 15:09 | XMS_ITS | Encounter Summary ---
:1940 Author Organization [facility] Address [address] [place] [address] Care Team Providers Name Role Phone Unavailable Primary Care Provider Unavailable Encounter Details Date Type Department Care Team Description 12/25/2013 - Hospital Encounter HX RST UNIT 9-2 12/27/2013 ORTHOPEDICS Social History Tobacco Use Types Packs/Day Years [...] 10/29/2020 relatives? How often do you attend taoist or spiritism services? Elizabeth t refused 10/29/2020 Do you belong to any clubs or organizations such as Nabil borrero taoist groups, unions, fraternal or athletic groups, or [...] Sign Reading Time Taken Comments Blood Pressure 143/76 12/27/2013 3:39 PM NIBP - Value from CDT Chartplus. Pulse 74 12/27/2013 3:38 PM Value from artplus. CDT Temperature - - Respiratory Rate 14 12/27/2013 3:38 PM Value from C hartplus. CDT Oxygen Saturation - - Inhaled Oxygen - - Concentration Weight 95.4 kg (210 lb 5.1 12/25/2013 7:53 AM Vital sign result oz) CDT from CDM. Height 178 cm (5' 10.08) 12/25/2013 7:53 AM Vital s ign result CDT from CDM. Body Mass Index 30.11 12/25/2013 7:53 AM CDT documented in this encounter Medications at Time of Discharge Medication Sig Dispensed Refills Start Date End Date ascorbic acid, vitamin C, Take 1 tablet by 0 12/15 (ascorbic acid with lacey mouth at bedtime. hips) 500 mg tablet B complex-vitamin (SUPER Take 1 tablet by [...] by 0 07/06/200902/14/2020 (FISH OIL ORAL) mouth. documented as of this encounter Plan of Treatment Not on filedocumented as of this encounter Procedures Procedure Name Priority Date/Time Associated Comments Diagnosis GLUCOSE POCT, B Routine 12/27/2013 12:13 Results for this PM CDT procedure are i n the results section. GLUCOSE POCT, B Routine 12/27/2013 6:21 AM Result s for this CDT procedure are i n the results section. GLUCOSE POCT, B Routine 12/26/2013 9:46 PM Result s for this CDT procedure are i n the results section. GLUCOSE POCT, B Routine 12/26/2013 5:12 PM Result s for this CDT procedure are i n the results section. GLUCOSE POCT, B Routine 12/26/2013 12:02 Results for this PM CDT procedure are i n the results section. GLUCOSE POCT, B Routine 12/26/2013 6:20 AM Result s for this CDT procedure are i n the results section. ELECTROLYTE (CHEM 4) Routine 12/26/2013 4:18 AM R esults for this PANEL, S/P CDT procedure are i n the results section. CBC WITHOUT Routine 12/26/2013 4:18 AM Results f or this DIFFERENTIAL, B CDT procedure ar e in the results section. HEMOGLOBIN A1C, B Routine 12/26/2013 4:18 AM Resu lts for this CDT procedure are i n the results section. GLUCOSE POCT, B Routine 12/25/2013 9:56 PM Result s for this CDT procedure are i n the results section. GLUCOSE POCT, B Routine 12/25/2013 5:14 PM Result s for this CDT procedure are i n the results section. GLUCOSE POCT, B Routine 12/25/2013 11:51 Results for this AM CDT procedure are i n the results section. DX KNEE UNILATERAL 2 Routine 12/25/2013 10:53 Res ults for this VIEWS AM CDT procedure are i n the results section. GLUCOSE POCT, B Routine 12/25/2013 10:46 Results for this AM CDT procedure are i n the results section. GLUCOSE POCT, B Routine 12/25/2013 9:20 AM Result s for this CDT procedure are i n the results section. GLUCOSE POCT, B Routine 12/25/2013 5:48 AM Result s for this CDT procedure are i n the results section. documented in this encounter Results Glucose, POCT (12/27/2013 12:13 PM CDT) [facility] Method Time Signature Last Intake 3-4 hours [facility] Glucose, 136 70 - 140 [facility] POCT, B MG/DL LABORATORIES - [facility] Sample Site, Capillary [facility] Blood Gas, LABORATORIES - POCT [facility] Specimen Anatomical Collection Method Collection Time Receive d Time (Source) Location / / Volume Laterality 12/27/2013 12:13 12/27/2013 PM CDT 12:13 PM CDT Historical Provider LAB POCT ORDERABLES-MANUAL Performing Organization Address City/[facility]/ZIP Code Phon e Number [facility] LABORATORIES - [address] [place] [address] [facility] Glucose, POCT (12/27/2013 6:21 AM CDT) P athologist Signature Glucose, POCT, 131 70 - 140 [facility] B MG/DL LAB[facility]ATORIES - [facility] Specimen Anatomical Collection Method Collection Time Receive d Time (Source) Location / / Volume Laterality 12/27/2013 6:21 AM 4 6:21 CDT AM CDT Historical Provider LAB POCT ORDERABLES-MANUAL Performing Organization Address City/[facility] Phon e Number [facility] LABORATORIES - [address] [phone] 05 [facility] (ABNORMAL) Glucose, POCT (12/26/2013 9:46 PM CDT) Patholo gist Method Time Signature Glucose, 163 (H) 70 - 140 [facility] POCT, B MG/DL [facility]ATORIES - [facility] Sample Site, Capillary [facility] Blood Gas, LABORATORIES - POCT [facility] Last Intake 3-4 hours [facility] LABORATORIES - [facility] Specimen Anatomical Collection Method Collection Time Receive d Time (Source) Location / / Volume Laterality 12/26/2013 9:46 PM 4 9:46 CDT PM CDT Historical Provider LAB POCT ORDERABLES-MANUAL Performing Organization Address City/[facility] Phon e Number [facility] LABORATORIES - [address] [address] [facility] (ABNORMAL) Glucose, POCT (12/26/2013 5:12 PM CDT) Patholo gist Method Time Signature Glucose, POCT, 163 (H) 70 - 140 [facility] B MG/DL [facility] - [facility] Specimen Anatomical Collection Method Collection Time Receive d Time (Source) Location / / Volume Laterality 12/26/2013 5:12 PM 4 5:12 CDT PM CDT Historical Provider LAB POCT ORDERABLES-MANUAL Performing Organization Address City/[facility]/ZIP Code Phon e Number [facility] LABORATORIES - [address] [address] [facility] (ABNORMAL) Glucose, POCT (12/26/2013 12:02 PM CDT) [facility] gist Method Time Signature Glucose, 147 (H) 70 - 140 [facility] POCT, B MG/DL [facility] - [facility] Sample Site, Capillary [facility] Blood Gas, LABORATORIES - POCT [facility] Last Intake 3-4 hours [facility] Specimen Anatomical Collection Method Collection Time Receive d Time (Source) Location / / Volume Laterality 12/26/2013 12:02 12/26/2013 PM CDT 12:02 PM CDT Historical Provider LAB POCT ORDERABLES-MANUAL Performing Organization Address City/[facility]/ZIP Code Phon e Number [facility] LABORATORIES - [address] [address] [facility] Glucose, POCT (12/26/2013 6:20 AM CDT) P athologist Signature Glucose, POCT, 115 70 - 140 [facility] B MG/DL [facility] - [facility] Specimen Anatomical Collection Method Collection Time Receive d Time (Source) Location / / Volume Laterality 12/26/2013 6:20 AM 4 6:20 CDT AM CDT Historical Provider LAB POCT ORDERABLES-MANUAL Performing Organization Address City/[facility]/ZIP Code Phon e Number [facility] LABORATORIES - [address] [address] [facility] (ABNORMAL) Hemoglobin A1c (12/26/2013 4:18 AM CDT) [facility] gist Method Time Signature Hemoglobin A1c, 6.4 (H) 4.0 - 6.0 [facility] B % LABORATORIES - [facility] Specimen Anatomical Collection Method Collection Time Receive d Time (Source) Location / / Volume Laterality 12/26/2013 4:18 AM 4 4:18 CDT AM CDT Rene Warren P.A.-C. LAB BLOOD ADD-ON Performing Organization Address City/[facility]/ZIP [facility] Phon e Number [facility] LABORATORIES - [address] [phone] [facility] (ABNORMAL) CBC without Differential (12/26/2013 4:18 AM CDT) Patholo gist Method Time Signature Erythrocytes 4.38 4.32 - [facility] 5.72 LABORATORIES - X10(12)/L [facility] MCV 85.2 81.2 - [facility] 95.1 FL LABORATORIES - [facility] Leukocytes 7.7 3.5 - [facility] 10.5 LABORATORIES - X10(9)/L [facility] Hemoglobin 12.9 (L) 13.5 - [facility] 17.5 G/DL LAB[facility]ATORIES - [facility] Hematocrit 37.3 (L) 38.8 - [facility] 50.0 % LABORATORIES - [facility] RBC Distrib 13.5 11.8 - [facility] Width 15.6 % [facility] - [facility] Platelet Count 180 150 - 450 [facility] X10(9)/L [facility] - [facility] Specimen Anatomical Collection Method Collection Time Receive d Time (Source) Location / / Volume Laterality 12/26/2013 4:18 AM 4 4:18 CDT AM CDT Rene Warren P.A.-C. LAB BLOOD ADD-ON Performing Organization Address City/State/ZIP Code Phon e Number [facility] LABORATORIES - [address] [place], [place] [address] [facility] Electrolyte (Chem 4) Panel (12/26/2013 4:18 AM CDT) Analysis Performed At [facility] logist Time Signature Chloride, S 100 98 - 107 [facility] MMOL/L [facility] - [facility] HX Bicarbonate, 25 22 - 29 [facility] P/S MMOL/L LAB[facility]ATORIES - [facility] Anion Gap 12 7 - 15 [facility] Glucose, S 108 70 - 140 [facility] MG/DL [facility] Sodium, S 137 135 - 145 [facility] MMOL/L [facility] Potassium, S 4.0 3.6 - 5.2 [facility] MMOL/L [facility] Creatinine 1.0 0.8 - 1.3 [facility] MG/DL [facility] BUN (Blood Urea 13 8 - 24 [facility] Nitrogen), S MG/DL [facility] Specimen Anatomical Collection Method Collection Time Receive d Time (Source) Location / / Volume Laterality 12/26/2013 4:18 AM 4 4:18 CDT AM CDT Rene Warren P.A.-C. LAB BLOOD ADD-ON Performing Organization Address City/[facility]/ZIP Code Phon e Number [facility] LABORATORIES - [address] [phone] [facility] (ABNORMAL) Glucose, POCT (12/25/2013 9:56 PM CDT) [facility] Method Time Signature Glucose, 170 (H) 70 - 140 [facility] POCT, B MG/DL [facility] - [facility] Sample Site, Capillary [facility] Blood Gas, LABORATORIES - POCT [facility] Last Intake 3-4 hours [facility] Specimen Anatomical Collection Method Collection Time Receive d Time (Source) Location / / Volume Laterality 12/25/2013 9:56 PM 4 9:56 CDT PM CDT Historical Provider LAB POCT ORDERABLES-MANUAL Performing Organization Address City/[facility]/ZIP [facility] Phon e Number [facility] LABORATORIES - [address] [phone] [facility] Glucose, POCT (12/25/2013 5:14 PM CDT) [facility] Method [place] Signature Glucose, 113 70 - 140 [facility] POCT, B MG/DL [facility]IES - [facility] Sample Site, Capillary [facility] Blood Gas, LABORATORIES - POCT [facility] Last Intake 2-3 hours [facility] Specimen Anatomical Collection Method Collection Time Receive d Time (Source) Location / / Volume Laterality 12/25/2013 5:14 PM 4 5:14 CDT PM CDT Historical Provider LAB POCT ORDERABLES-MANUAL Performing Organization Address City/[facility]/ZIP [facility] Phon e Number [facility] LABORATORIES - [address] [address] [facility] Glucose, POCT (12/25/2013 11:51 AM CDT) [facility] Method Time Signature Glucose, 129 70 - 140 [facility] POCT, B MG/DL [facility]ATORIES - [facility] Sample Site, Capillary [facility] Blood Gas, LABORATORIES - POCT [facility] Last Intake NPO [facility] Specimen Anatomical Collection Method Collection Time Receive d Time (Source) Location / / Volume Laterality 12/25/2013 11:51 12/25/2013 AM CDT 11:51 AM CDT Historical Provider LAB POCT ORDERABLES-MANUAL Performing Organization Address City/State/ZIP Code Phon e Number [facility] LABORATORIES - [address] [place], [place] [address] [facility] DX Knee 2 Views (12/25/2013 10:53 AM CDT) Anatomical Region Laterality Modality Lower Extremity, Knee N/A Radiographic Imagi ng Specimen (Source) Anatomical Collection Method Collection Time Re ceived Time Location / / Volume Laterality 12/25/2013 10:53 AM CDT Impressions 12/25/2013 10:54 AM CDT Right TKA is well seated. Negative for PO purposes. Electronically signed by: ?? An Miller MD ??[id number] 25-Dec-2013 10:54 Narrative 12/25/2013 10:54 AM CDT 25-Dec-2013 10:53:00 ??Exam: R Knee 2vw AP/Lat Indications: Post-op; Right knee degener ative joint disease ; Right knee arthroplasty total ORIGINAL REPORT - 25-Dec-2013 10:54:00 Right Knee 2vw AP/Lat: Procedure Note Aric Miller M.D. - 08/13/2017Formatt ing of this note might be different from the original. 25-Dec-2013 10:53:00 Exam: R Knee 2vw AP /Lat Indications: Post-op; Right knee degener ative joint disease ; Right knee arthroplasty total ORIGINAL REPORT - 25-Dec-2013 10:54:00 Right Knee 2vw AP/Lat: IMPRESSION: Right TKA is well seated. Ne gative for PO purposes. Electronically signed by: An Miller MD [id number] 25-Dec-2013 10:54 Vinayak Corral M.D. IMJuma DIAGNOSTIC IMAGING PROCE MARY Glucose, POCT (12/25/2013 10:46 AM CDT) P athologist Signature Glucose, POCT, 124 70 - 140 [facility] B MG/DL LAB[facility]ATORIES - [facility] Specimen Anatomical Collection Method Collection Time Receive d Time (Source) Location / / Volume Laterality 12/25/2013 10:46 12/25/2013 AM CDT 10:46 AM CDT Historical Provider LAB POCT ORDERABLES-MANUAL Performing Organization Address City/State/ZIP Code Phon e Number [facility] LABORATORIES - [address] [place], [place] [address] [facility] Glucose, POCT (12/25/2013 9:20 AM CDT) [facility] Method Time Signature Glucose, 124 70 - 140 [facility] POCT, B MG/DL LAB[facility]ATORIES - [facility] Sample Site, Capillary [facility] Blood Gas, LABORATORIES - POCT [facility] Specimen Anatomical Collection Method Collection Time Receive d Time (Source) Location / / Volume Laterality 12/25/2013 9:20 AM 4 9:20 CDT AM CDT Historical Provider LAB POCT ORDERABLES-MANUAL Performing Organization Address City/State/ZIP Code Phon e Number [facility] LABORATORIES - [address] [place], [place] [address] [facility] Glucose, POCT (12/25/2013 5:48 AM CDT) [facility] Method Time Signature Glucose, 120 70 - 140 [facility] POCT, B MG/DL LAB[facility]ATORIES - [facility] Sample Site, Capillary [facility] Blood Gas, LABORATORIES - POCT [facility] Last Intake NPO [facility] LAB[facility]ATORIES - [facility] Specimen Anatomical Collection Method Collection Time Receive d Time (Source) Location / / Volume Laterality 12/25/2013 5:48 AM 4 5:48 CDT AM CDT Historical Provider LAB POCT ORDERABLES-MANUAL Performing Organization Address City/State/ZIP Code Phon e Number [facility] LABORATORIES - [address] [place], [place] [address] [facility] documented in this encounter Visit Diagnoses Not on filedocumented in this encounter
--- OUTSIDE RECORDS SUMMARY | 2022-02-03 15:09 | XMS_ITS | Encounter Summary ---
:[address] [facility] Address [address] [place] [address] Care Team Providers Name Role Phone Eliezer RYAN D.O., Marco Monae Primary Care Provider Encounter Details Date Type Department Care Team Description 09/21/2014 Historical Ophthalmology RST OPH Softing Genet Cordero O.D. [address] [place], [place] [phone] (Wo rk) Social History Tobacco Use Types [...] How often do you attend zoroastrian or hinduism services? Patien t refused 10/29/2020 [...] place to sleep or slept in a nursing home (including now)? Sex Assigned at Date Recorded Not on file documented as of this encounter Progress Notes Genet Patiño O.D. - 09/21/2014 1:33 PM CDT Eye General CHIEF COMPLAINT Yesterday lost vision in LE for 3 minutes then it came back. HISTORY OF PRESENT ILLNESS Patient reports that yesterday he had an episode where he lost vision in Lt eye, says that he could see a little bit but not much. Lasted 3-4 minutes and then vision came back normal, there was no SLATER, numbness, dizziness, confusion, jaw pain or double. Denies headaches, but wonders if it was due to low blood sugar or something else. Patient is type 2 diabetic, currently controlling with oral medication, reports that he was recentlyseen and medications were changed. Most recent labs:A1C:6.1% on 08/30/14, reports sugars were 120 this morning. Had medical exam last week ( Mary Looney) - all checked out OK. Patient denies pain, flashes, a change in floaters, or diplopia. IMPRESSION / REPORT / PLAN #1 Amaurosis fugax Plan: Get sed rate blood test today, I'll call with results. KOSTAS sent to [facility] and they will call you for further testing . If this occurs again, call immediately. #2 Diabetes mellitus, Type 2, no eye complications. Plan: monitor annually, emphasized the importance of good diabetic control. #3 Cataract, both eyes, not visually significant. Plan: monitor 21 Sep 2014 - sed rate within normal. CHANDRIKAM sent to Dr. Wick. I spoke with patient - your doctor will call with the next step. Call if you have other questions or concerns. DIAGNOSIS #1 Amaurosis fugax #2 Diabetes mellitus, Type 2, no eye complications. #3 Cataract, both eyes, not visually significant. CDM Reports - EYEGEN Id: [id number] Status: Fnl documented in this encounter Plan of Treatment Not on filedocumented as of this encounter Visit Diagnoses Not on filedocumented in this encounter Care Teams Manager R D Relationship Specialty Start Date End Date Marco Martins IV, D.O. PCP - General 11/14/21 [address] [place] [address] documented as of this encounter
--- OUTSIDE RECORDS SUMMARY | 2022-02-03 15:09 | XMS_ITS | Encounter Summary ---
:1940 Author Organization [facility] Address [address] [place] [address] Care Team Providers Name Role Phone Unavailable Primary Care Provider Unavailable Encounter Details Date Type Department Care Team Description 09/11/2013 Hospital Encounter HX NO MAPPING Social History [...] How often do you attend synagogue or moravian services? Patien t refused 10/29/2020 [...] Sig Dispensed Refills Start Date End Date B complex-vitamin (SUPER Take 1 tablet by 0 09/16 B-50) capsule mouth. calcium carbonate-vitamin Take 1 tablet by 0 0505/2009 D3 (CALCIUM 600 + D,3,) mouth 2 [...]
--- OUTSIDE RECORDS SUMMARY | 2022-02-03 15:09 | XMS_ITS | Encounter Summary ---
:1940 Author Organization [facility] Address [address] [place] [address] Care Team Providers Name Role Phone Eliezer RYAN D.O., Marco Monae Primary Care Provider Encounter Details Date Type Department Care Team Description 03/30/2007 Historical Ophthalmology RST OPH Dharmesh Lopez O.D. [address] [place], [place] [address] (Wo rk) Social History Tobacco Use Types [...] How often do you attend restorationist or hoahaoism services? Patien t refused 10/29/2020 [...] documented as of this encounter Progress Notes Dharmesh Lopez O.D. - 03/30/2007 10:59 AM CST Eye General CHIEF COMPLAINT Yearly eye exam HISTORY OF PRESENT ILLNESS This is a 66 year old gentleman here for routine eye exam. Patient denies any pain, flashes, floaters or diplopia. Vision is stable; not having any problem. Type 2 DM Non-Insulin dependent diabetic for the past 2 years. Blood sugars are controlled; 93 this morning. A1C was 6.2 on 02/16/07 IMPRESSION / REPORT / PLAN #1 Diabetes mellitus, no eye complications. Plan: monitor periodically. #2 Cataract, both eyes, not visually significant. Plan: monitor periodically, spectacle prescription (Refraction 1) given, no glasses Rx change necessary. Return every 1 year for vision, tonometry, and dilation. DIAGNOSIS #1 Diabetes mellitus, no eye complications. #2 Cataract, both eyes, not visually significant. CDM Reports - EYEGEN Id: [id number] Status: Fnl documented in this encounter Plan of Treatment Not on filedocumented as of this encounter Visit Diagnoses Not on filedocumented in this encounter Care Teams Concrete Bucket Hooker Relationship Specialty Start Date End Date Marco Martins IV DClarenceOClarence PCP - General 11/14/21 [address] [place] [address] documented as of this encounter
--- OUTSIDE RECORDS SUMMARY | 2022-02-03 15:09 | XMS_ITS | Encounter Summary ---
:1940 Author Organization [facility] Address [address] [place] [address] Care Team Providers Name Role Phone Eliezer RYAN D.O., Marco Monae Primary Care Provider Encounter Details Date Type Department Care Team Description 02/11/2006 Historical Ophthalmology RST OPH Morris Andrade ONidia [address] [place], [place] [phone] (Wo rk) Social History [...] How often do you attend worship or taoism services? Patien t refused 10/29/2020 Do you [...] documented as of this encounter Progress Notes Morris Andrade O.D. - 02/11/2006 12:00 AM CDT Eye General CHIEF COMPLAINT Annual diabetic check HISTORY OF PRESENT ILLNESS He states his sugars have been generally good. Vision has generally been good. His left eye seems a bit scratchy. IMPRESSION / REPORT / PLAN #1 Diabetes mellitus, no eye complications. Plan: monitor periodically. #2 Cataract, both eyes, not visually significant. Plan: monitor periodically, spectacle prescription (Refraction 1) given. DIAGNOSIS #1 Diabetes mellitus, no eye complications. #2 Cataract, both eyes, not visually significant. CDM Reports - EYEGEN Id: [id number] Status: Fnl documented in this encounter Plan of Treatment Not on filedocumented as of this encounter Visit Diagnoses Not on filedocumented in this encounter Care Teams Equipment Maintenance Superintendent Relationship Specialty Start Date End Date Marco Martins IV, D.O. PCP - General 11/14/21 [address] [place] [address] documented as of this encounter
--- OUTSIDE RECORDS SUMMARY | 2022-02-03 15:09 | XMS_ITS | Encounter Summary ---
:[address] [facility] Address [address] [place] [address] Care Team Providers Name Role Phone Unavailable Primary Care Provider Unavailable Encounter Details Date Type Department Care Team Description 11/18/2010 Hospital Encounter HX NO MAPPING Social History [...] How often do you attend holiness or taoist services? Patien t refused 10/29/2020 [...]
--- OUTSIDE RECORDS SUMMARY | 2022-02-03 15:09 | XMS_ITS | Encounter Summary ---
:1940 Author Organization [facility] Address [address] [place] [address] Care Team Providers Name Role Phone Unavailable Primary Care Provider Unavailable Encounter Details Date Type Department Care Team Description 09/11/2013 - 09/12/2013 Hospital Encounter HX RST GAR[facility] CANDELARIA 9E Social History Tobacco Use Types Packs/Day Years [...] 10/29/2020 relatives? How often do you attend adventism or scientologist services? Patien t refused 10/29/2020 Do you belong to any clubs or organizations such as Not jelani borrero adventism groups, unions, fraternal or athletic groups, or [...] Sign Reading Time Taken Comments Blood Pressure 154/72 09/12/2013 11:00 NIBP - Value fr om AM CDT [facility]. Pulse 58 09/12/2013 11:00 Value from Aide[facility] tplus. AM CDT Temperature - - Respiratory Rate 16 09/12/2013 5:40 AM Value from Jose Alejandro sheikh. CDT Oxygen Saturation - - Inhaled Oxygen - - Concentration Weight 93.6 kg (206 lb 5.6 09/11/2013 6:38 AM Vital sign result oz) CDT from CDM. Height 179 cm (5' 10.47) 09/11/2013 6:38 AM Vital s ign result CDT from CDM. Body Mass Index 29.21 09/11/2013 6:38 AM CDT documented in this encounter Medications [...] Name Priority Date/Time Associated Diagnosis Comme nts GLUCOSE POCT, B Routine 09/12/2013 5:43 AM Result s for this CDT procedure are i n the results section. GLUCOSE POCT, B Routine 09/11/2013 10:14 PM Resul ts for this CDT procedure are i n the results section. GLUCOSE POCT, B Routine 09/11/2013 6:01 PM Result s for this CDT procedure are i n the results section. GLUCOSE POCT, B Routine 09/11/2013 1:24 PM Result s for this CDT procedure are i n the results section. GLUCOSE POCT, B Routine 09/11/2013 12:39 PM Resul ts for this CDT procedure are i n the results section. GLUCOSE POCT, B Routine 09/11/2013 12:14 PM Resul ts for this CDT procedure are i n the results section. GLUCOSE POCT, B Routine 09/11/2013 10:21 AM Resul ts for this CDT procedure are i n the results section. DX SPINE 1 VIEW Routine 09/11/2013 10:06 AM Resul ts for this CDT procedure are i n the results section. GLUCOSE POCT, B Routine 09/11/2013 6:19 AM Result s for this CDT procedure are i n the results section. documented in this encounter Results Glucose, POCT (09/12/2013 5:43 AM CDT) [facility] Method Time Signature Last Intake 3-4 hours [facility] Glucose, 132 70 - 140 [facility] POCT, B MG/DL LABORATORIES - [facility] Sample Site, Capillary [facility] Blood Gas, LABORATORIES - POCT [facility] Specimen Anatomical Collection Method Collection Time Receive d Time (Source) Location / / Volume Laterality 09/12/2013 5:43 AM 4 5:43 CDT AM CDT Historical Provider LAB POCT ORDERABLES-MANUAL Performing Organization Address City/State/ZIP Code Phon e Number [facility] - [address] [place], [place] [address] [facility] (ABNORMAL) Glucose, POCT (09/11/2013 10:14 PM CDT) USB Promos gist Method Time Signature Last Intake 3-4 hours [facility] Glucose, 159 (H) 70 - 140 [facility] POCT, B MG/DL LABORATORIES - [facility] Sample Site, Capillary [facility] Blood Gas, LABORATORIES - POCT [facility] Specimen Anatomical Collection Method Collection Time Receive d Time (Source) Location / / Volume Laterality 09/11/2013 10:14 09/11/2013 PM CDT 10:14 PM CDT Historical Provider LAB POCT ORDERABLES-MANUAL Performing Organization Address City/[facility] Phon e Number [facility] - [address] [place], [place] [address] [facility] Glucose, POCT (09/11/2013 6:01 PM CDT) [facility] Method Time Signature Glucose, 116 70 - 140 [facility] POCT, B MG/DL LABORATORIES - [facility] Sample Site, Capillary [facility] Blood Gas, LABORATORIES - POCT [facility] Last Intake > 4 hours [facility] - [facility] Specimen Anatomical Collection Method Collection Time Receive d Time (Source) Location / / Volume Laterality 09/11/2013 6:01 PM 4 6:01 CDT PM CDT Historical Provider LAB POCT ORDERABLES-MANUAL Performing Organization Address City/[facility] Phon e Number [facility] - [address] [place], [place] [address] [facility] Glucose, POCT (09/11/2013 1:24 PM CDT) [facility] Method Time Signature Glucose, 133 70 - 140 [facility] POCT, B MG/DL LABORATORIES - [facility] Sample Site, Capillary [facility] Blood Gas, LABORATORIES - POCT [facility] Last Intake > 4 hours [facility] Specimen Anatomical Collection Method Collection Time Receive d Time (Source) Location / / Volume Laterality 09/11/2013 1:24 PM 4 1:24 CDT PM CDT Historical Provider LAB POCT ORDERABLES-MANUAL Performing Organization Address City/[facility]/ZIP Code Phon e Number [facility] - [address] [place], [place] [address] [facility] Glucose, POCT (09/11/2013 12:39 PM CDT) [facility] Method Time Signature Glucose, 132 70 - 140 [facility] POCT, B MG/DL LABORATORIES - [facility] Sample Site, Capillary [facility] Blood Gas, LABORATORIES - POCT [facility] Specimen Anatomical Collection Method Collection Time Receive d Time (Source) Location / / Volume Laterality 09/11/2013 12:39 09/11/2013 PM CDT 12:39 PM CDT Historical Provider LAB POCT ORDERABLES-MANUAL Performing Organization Address City/[facility]/ZIP Code Phon e Number [facility] - [address] [place], [place] [address] [facility] Glucose, POCT (09/11/2013 12:14 PM CDT) [facility] Method Time Signature Glucose, 123 70 - 140 [facility] POCT, B MG/DL LABORATORIES - [facility] Sample Site, Capillary [facility] Blood Gas, LABORATORIES - POCT [facility] Specimen Anatomical Collection Method Collection Time Receive d Time (Source) Location / / Volume Laterality 09/11/2013 12:14 09/11/2013 PM CDT 12:14 PM CDT Varun Guerrier M.D. LAB POCT ORDERABLES-MANUAL Performing Organization Address City/State/ZIP Code Phon e Number [facility] - [address] [place], [place] [address] [facility] (ABNORMAL) Glucose, POCT (09/11/2013 10:21 AM CDT) [facility] Method Time Signature Glucose, 142 (H) 70 - 140 [facility] POCT, B MG/DL LABORATORIES - [facility] Sample Site, Capillary [facility] Blood Gas, LABORATORIES - POCT [facility] Specimen Anatomical Collection Method Collection Time Receive d Time (Source) Location / / Volume Laterality 09/11/2013 10:21 09/11/2013 AM CDT 10:21 AM CDT Varun Guerrier M.D. LAB POCT ORDERABLES-MANUAL Performing Organization Address City/State/ZIP Code Phon e Number [facility] - [address] [place] [id number] [facility] Dx Spine 1 View (09/11/2013 10:06 AM CDT) Anatomical Region Laterality Modality Spine N/A Radiographic Imaging Specimen (Source) Anatomical Collection Method Collection Time Re ceived Time Location / / Volume Laterality 09/11/2013 10:06 AM CDT Narrative 09/11/2013 10:17 AM CDT 11-Sep-2013 10:06:00 ??Exam: Sp*Single 1vw Indications: OR709, radiculopathy; lumba r localization ORIGINAL REPORT - 11-Sep-2013 10:17:00 Sp*Single 1vw: Tip of the instrument is posterior to th e L4 interspace, if there are five lumbar-type vertebral bodies. No prior films for comparison. Electronically signed by: ?? Josh Huff MD. ??[id number] 11-Sep-2013 10:1 7 Procedure Note Romy Huff M.D. - 08/13/2017Formatti ng of this note might be different from the original. 11-Sep-2013 10:06:00 Exam: Sp*Single 1vw Indications: OR709, radiculopathy; lumba r localization ORIGINAL REPORT - 11-Sep-2013 10:17:00 Sp*Single 1vw: Tip of the instrument is posterior to th e L4 interspace, if there are five lumbar-type vertebral bodies. No prior films for comparison. Electronically signed by: Josh Huff MD. [id number] 11-Sep-2013 10:17 Kay Bright M.D. IMG DIAGNOSTIC IMAGING PROCE DURES (ABNORMAL) Glucose, POCT (09/11/2013 6:19 AM CDT) Patholo gist Method Time Signature Last Intake > 4 hours [facility] - [facility] Glucose, 142 (H) 70 - 140 [facility] POCT, B MG/DL LABORATORIES - [facility] Sample Site, Capillary [facility] Blood Gas, LABORATORIES - POCT [facility] Specimen Anatomical Collection Method Collection Time Receive d Time (Source) Location / / Volume Laterality 09/11/2013 6:19 AM 4 6:19 CDT AM CDT Historical Provider LAB POCT ORDERABLES-MANUAL Performing Organization Address City/State/ZIP Code Phon e Number [facility] - [address] [place], [place] [address] [facility] documented in this encounter Visit Diagnoses Not on filedocumented in this encounter
--- OUTSIDE RECORDS SUMMARY | 2022-02-03 15:09 | XMS_ITS | Encounter Summary ---
:1940 Author Organization [facility] Address [address] [place] [address] Care Team Providers Name Role Phone Eliezer RYAN D.O., Marco Monae Primary Care Provider Encounter Details Date Type Department Care Team Description 01/18/2014 Historical Ophthalmology RST OPH Dharmesh Lopez O.D. [address] [place], [place] [address] (Wo rk) Social History [...] How often do you attend muslim or advent services? Patien t refused 10/29/2020 [...] encounter Progress Notes Dharmesh Lopez O.D. - 01/18/2014 12:32 PM CDT Eye General CHIEF COMPLAINT diabetic eye exam HISTORY OF PRESENT ILLNESS Non insulin dependent diabetic, blood sugars 90 in the morning. Glucose 103 on 12/20/13 and Hemoglobin A1c 6.4 on 12/26/13. Patient reports vision good at distance and near. Denies pain, flashes, and new floaters. Denies diplopia. IMPRESSION / REPORT / PLAN #1 Diabetes mellitus, Type 2, no eye complications. Plan: monitor annually, emphasized the importance of good diabetic control. #2 Cataract, both eyes, not visually significant. Plan: discussed, monitor periodically. #3 Refractive error (hyperopic astigmatism, presbyopia). Plan: spectacle prescription (Refraction 2) given. RTC 1 year / prn DIAGNOSIS #1 Diabetes mellitus, Type 2, no eye complications. #2 Cataract, both eyes, not visually significant. #3 Refractive error (hyperopic astigmatism, presbyopia). CDM Reports - [facility] Id: [id number] Status: Fnl documented in this encounter Plan of Treatment Not on filedocumented as of this encounter Visit Diagnoses Not on filedocumented in this encounter Care Teams Sociology Teacher Relationship Specialty Start Date End Date Marco Martins IV, D.O. PCP - General 11/14/21 [address] [place] [phone] documented as of this encounter
--- OUTSIDE RECORDS SUMMARY | 2022-02-03 15:09 | XMS_ITS | Encounter Summary ---
:1940 Author Organization [facility] Address [address] [place] [address] Care Team Providers Name Role Phone Eliezer RYAN D.O., Marco Monae Primary Care Provider Encounter Details Date Type Department Care Team Description 01/29/2017 Historical Ophthalmology RST OPH Tania Michaels O.D. [address] [place], [place] [phone] (Wo rk) Social History [...] How often do you attend mandaen or confucianism services? Patien t refused 10/29/2020 Do you [...] encounter Progress Notes Tania Michaels O.D. - 01/29/2017 12:29 PM CDT Eye General CHIEF COMPLAINT Diabetic eye exam HISTORY OF PRESENT ILLNESS Patient is here today for a diabetic eye exam. Non-insulin dependent diabetic. Most recent HBA1c was6.4 done 08/19/2016. No eye complications due to diabetes previously noted. Patient reports visual acuity is stable in both eyes. Denies pain, flashes, and new floaters. Denies diplopia. IMPRESSION / REPORT / PLAN #1 Diabetes mellitus, Type 2, no eye complications. Plan: monitor annually, emphasized the importance of good diabetic control. #2 Cataract, both eyes, not visually significant. Plan: monitor, spectacle prescription (Refraction 1) given. Return every 1 year for vision, tonometry, and dilation. DIAGNOSIS #1 Diabetes mellitus, Type 2, no eye complications. #2 Cataract, both eyes, not visually significant. CDM Reports - [facility] Id: [id number] Status: Fnl documented in this encounter Plan of Treatment Not on filedocumented as of this encounter Visit Diagnoses Not on filedocumented in this encounter Care Teams Material Checker Relationship Specialty Start Date End Date Marco Martins IV, D.O. PCP - General 11/14/21 [address] [place] [phone] documented as of this encounter
--- OUTSIDE RECORDS SUMMARY | 2022-02-03 15:09 | XMS_ITS | Encounter Summary ---
:[address] [facility] Address [address] [place] [address] Care Team Providers Name Role Phone Unavailable Primary Care Provider Unavailable Encounter Details Date Type Department Care Team Description 09/18/2004 Hospital Encounter HX NO MAPPING Social History [...] How often do you attend moravian or sikh services? Patien t refused 10/29/2020 Do you [...]
--- OUTSIDE RECORDS SUMMARY | 2022-02-03 15:09 | XMS_ITS | Encounter Summary ---
:1940 Author Organization [facility] Address [address] [place] [address] Care Team Providers Name Role Phone Eliezer RYAN D.O., Marco Monae Primary Care Provider Encounter Details Date Type Department Care Team Description 10/02/2009 Historical Ophthalmology RST OPH Kirk Cook O.D., Ph.D. Social History Tobacco Use Types Packs/Day Years [...] How often do you attend hinduism or mormonism services? Patien t refused 10/29/2020 Do you [...] documented as of this encounter Progress Notes Kirk Cook O.D., Ph.D. - 10/02/2009 12:55 PM CDT Eye General CHIEF COMPLAINT Diabetes HISTORY OF PRESENT ILLNESS Diabetic, taking oral medications. Last eye exam was 1.5 years ago. He has not noticed any changes with his vision. No eye pain, no flashes of light. He was at his primary doctors office and was told he needs to have a check of his eyes yearly. IMPRESSION / REPORT / PLAN #1 No diabetic retinopathy Monitor yearly #2 Cataracts, not visually significant Observe #3 Meibomian gland dysfunction Warm compress, lid massage #4 Refractive error (hyperopic astigmatism, presbyopia) Rx #2 given. DIAGNOSIS #1 No diabetic retinopathy #2 Cataracts, not visually significant #3 Meibomian gland dysfunction #4 Refractive error (hyperopic astigmatism, presbyopia) CDM Reports - [facility] Id: [id number] Status: Fnl documented in this encounter Plan of Treatment Not on filedocumented as of this encounter Visit Diagnoses Not on filedocumented in this encounter Care Teams Zookeeper Relationship Specialty Start Date End Date Marco Martins IV, D.O. PCP - General 11/14/21 [address] [place] [phone] documented as of this encounter
--- OUTSIDE RECORDS SUMMARY | 2022-02-03 15:09 | XMS_ITS | Encounter Summary ---
:1940 Author Organization [facility] Address [address] [place] [address] Care Team Providers Name Role Phone Eliezer RYAN D.O., Marco Monae Primary Care Provider Encounter Details Date Type Department Care Team Description 10/30/2010 Historical Ophthalmology RST OPH Shabbir Rosario M.D. [address] [place], [place] [phone] (Wo rk) Social History [...] How often do you attend advent or anglican services? Patien t refused 10/29/2020 [...] documented as of this encounter Progress Notes Shabbir Rosario M.D. - 10/30/2010 8:10 AM CDT Eye General CHIEF COMPLAINT Diabetic eye exam; floater in left eye HISTORY OF PRESENT ILLNESS Floater alone; left eye; x 3 weeks; constantly. Patient reports visual acuity stable in both eyes atdistance and near. Denies flashes and diplopia. Denies ocular pain. His most recent A1c was 6.0 on 09/11/2010. SSK: The history is as recorded above. Here for diabetic eye examination. he reports good recent control. He complains of floaters in the left eye for the last 3 weeks. The floater moves within the vision. No history of trauma. no change in the visual acuity. IMPRESSION / REPORT / PLAN #1 Posterior [...] should return. #4 Refractive Error both eyes DIAGNOSIS #1 Posterior Vitreous Detachment left eye #2 No Diabetic Retinopathy either eye #3 Cataract both eyes #4 Refractive Error both eyes CDM Reports - [facility] Id: [id number] Status: Fnl documented in this encounter Plan of Treatment Not on filedocumented as of this encounter Visit Diagnoses Not on filedocumented in this encounter Care Teams Small Battery Plate Assembler Relationship Specialty Start Date End Date Marco Martins IV, D.O. PCP - General 11/14/21 [address] [place] [phone] documented as of this encounter
--- OUTSIDE RECORDS SUMMARY | 2022-02-03 15:09 | XMS_ITS | Encounter Summary ---
:1940 Author Organization [facility] Address [address] [place] [address] Care Team Providers Name Role Phone Eliezer RYAN D.O., Marco Monae Primary Care Provider Encounter Details Date Type Department Care Team Description 12/11/2004 Historical Ophthalmology RST OPH Morris Andrade ONidia [address] [place], [place] [phone] (Wo rk) Social History [...] How often do you attend sikhism or sikhism services? Patien t refused 10/29/2020 [...] encounter Progress Notes Morris Andrade O.D. - 12/11/2004 12:00 AM CDT Eye General CHIEF COMPLAINT annual type 2 diabetic eye exam HISTORY OF PRESENT ILLNESS Patient here for annual type 2 diabetic eye exam, A1C hemoglobin was 6.3 on 11/18/2004. Bump lower left eyelid, x 6 months, slowly progressive in size, no pain. Denies pain, discomfort, light flashes, floaters or diplopia. IMPRESSION / REPORT / PLAN #1 Diabetes mellitus, no eye complications. Plan: observe. #2 Eyelid cyst Discussed with patient; if it grows or becomes bothersome, we can have it removed. #3 Refractive error (hyperopia, presbyopia). Plan: spectacle prescription (Refraction 1) given. DIAGNOSIS #1 Diabetes mellitus, no eye complications. #2 Eyelid cyst #3 Refractive error (hyperopia, presbyopia). CDM Reports - [facility] Id: [id number] Status: Fnl documented in this encounter Plan of Treatment Not on filedocumented as of this encounter Visit Diagnoses Not on filedocumented in this encounter Care Teams Logistics Center Manager Relationship Specialty Start Date End Date Marco Martins IV, D.O. PCP - General 11/14/21 [address] [place] [phone] documented as of this encounter
--- OUTSIDE RECORDS SUMMARY | 2022-02-03 15:09 | XMS_ITS | Encounter Summary ---
:1940 Author Organization [facility] Address [address] [place] [address] Care Team Providers Name Role Phone Eliezer RYAN D.O., Marco Monae Primary Care Provider Encounter Details Date Type Department Care Team Description 12/05/2012 Historical Ophthalmology RST OPH [place] Hailee hobbs ONidia [address] [place], [place] [phone] (Wo rk) Social History Tobacco Use Types [...] How often do you attend advent or episcopalian services? Patien t refused 10/29/2020 [...] documented as of this encounter Progress Notes Hailee Villegas O.D. - 12/05/2012 12:41 PM CDT Eye General CHIEF COMPLAINT diabetic eye exam HISTORY OF PRESENT ILLNESS Reports his prescription is two years old; vision seems stable, but he would like to purchase new glasses. Reports no eye pain, flashes of light or diplopia. Reports a floater in the left eye that has become less frequent over the past year. A1c 10/15/2011 5.9; glucose(P) 02/16/2012 95; last measured this AM at 86 IMPRESSION / REPORT / PLAN #1 Posterior [...] return. #4 Refractive Error both eyes srx update, refraction two 1 year / prn DIAGNOSIS #1 Posterior Vitreous Detachment left eye #2 No Diabetic Retinopathy either eye #3 Cataract both eyes #4 Refractive Error both eyes CDM Reports - [facility]YE[facility] Id: [id number] Status: Fnl documented in this encounter Plan of Treatment Not on filedocumented as of this encounter Visit Diagnoses Not on filedocumented in this encounter Care Teams Front Desk Relationship Specialty Start Date End Date Marco Martins IV, D.O. PCP - General 11/14/21 [address] [place] [phone] documented as of this encounter
--- OUTSIDE RECORDS SUMMARY | 2022-02-03 15:09 | XMS_ITS | Encounter Summary ---
:1940 Author Organization [facility] Address [address] [place] [address] Care Team Providers Name Role Phone Unavailable Primary Care Provider Unavailable Encounter Details Date Type Department Care Team Description 09/22/2010 Hospital Encounter HX NO MAPPING Social History [...] How often do you attend synagogue or orthodoxy services? Patien t refused 10/29/2020 [...]
--- OUTSIDE RECORDS SUMMARY | 2022-02-03 15:09 | XMS_ITS | Encounter Summary ---
:1940 Author Organization [facility] Address [address] [place] [address] Care Team Providers Name Role Phone Unavailable Primary Care Provider Unavailable Encounter Details Date Type Department Care Team Description 12/19/2004 - Hospital Encounter HX RST UNIT 9-2 12/23/2004 ORTHOPEDICS Social History Tobacco Use Types Packs/Day [...] How often do you attend hinduism or uatsdin services? Elizabeth t refused 10/29/2020 Do you belong to any clubs or organizations such as aNbil borrero hinduism groups, unions, fraternal or athletic [...]
--- OUTSIDE RECORDS SUMMARY | 2022-02-03 15:09 | XMS_ITS | Encounter Summary ---
:1940 Author Organization [facility] Address [address] [place] [address] Care Team Providers Name Role Phone Unavailable Primary Care Provider Unavailable Encounter Details Date Type Department Care Team Description 09/07/2013 Hospital Encounter HX NO MAPPING Social History [...] How often do you attend jainism or presybeterian services? Patien t refused 10/29/2020 [...]
--- OUTSIDE RECORDS SUMMARY | 2022-02-03 15:09 | XMS_ITS | Encounter Summary ---
:1939 Author Organization [facility] Address [address] [place] [address] Care Team Providers Name Role Phone Eliezer RYAN D.O., Marco Monae Primary Care Provider Encounter Details Date Type Department Care Team Description 03/15/2008 Historical Ophthalmology RST OPH Tania Michaels O.D. [address] [place], [place] [phone] (Wo rk) Social History [...] How often do you attend adventist or mandaeism services? Patien t refused 10/29/2020 [...] encounter Progress Notes Tania Michaels O.D. - 03/15/2008 7:20 AM CDT Eye General CHIEF COMPLAINT yearly diabetic evaluation HISTORY OF PRESENT ILLNESS This is a 67 year old male here for his yearly diabetic evaluation. His blood sugars have been stable. He stated he just had his yearly physical and his doctor was very happy with his blood test results. He is unsure of his last HgbA1C but he stated it was good. He denies any vision changes since he was here last. Patient denies ocular pain. He denies any floaters or flashes of light. He denies any diplopia. IMPRESSION / REPORT / PLAN #1 20/20, 20/20 - Early Cataracts #2 Diabetes without retinopathy Plan: 1. SRx no change 2. pt ed 3. 1 year / prn DIAGNOSIS #1 20/20, 20/20 - Early Cataracts #2 Diabetes without retinopathy CDM Reports - EYEGEN Id: [id number] Status: Fnl documented in this encounter Plan of Treatment Not on filedocumented as of this encounter Visit Diagnoses Not on filedocumented in this encounter Care Teams Director Hr Communications Relationship Specialty Start Date End Date Marco Martins IV, D.O. PCP - General 11/14/21 [address] [place] [address] documented as of this encounter
--- OUTSIDE RECORDS SUMMARY | 2022-02-03 15:09 | XMS_ITS | Encounter Summary ---
:1940 Author Organization [facility] Address [address] [place] [address] Care Team Providers Name Role Phone Unavailable Primary Care Provider Unavailable Encounter Details Date Type Department Care Team Description 12/21/2013 Hospital Encounter HX NO MAPPING Rene Warren P.A.-C. [address] [place], [place] [phone] (Wo rk) Social History [...] 10/29/2020 relatives? How often do you attend religious or rastafarian services? Patien t refused 10/29/2020 Do you belong to any clubs or organizations such as Nabil borrero religious groups, unions, fraternal or athletic groups, or [...]
--- OUTSIDE RECORDS SUMMARY | 2022-02-03 15:09 | XMS_ITS | Encounter Summary ---
:1940 Author Organization [facility] Address [address] [place] [address] Care Team Providers Name Role Phone Eliezer RYAN D.O., Marco Monae Primary Care Provider Encounter Details Date Type Department Care Team Description 11/11/2015 Historical Ophthalmology RST OPH Dharmesh Lopez O.D. [address] [place], [place] [address] (Wo rk) Social History [...] 10/29/2020 relatives? How often do you attend taoism or advent services? Patien t refused 10/29/2020 Do you belong to any clubs or organizations such as Nabil borrero taoism groups, unions, fraternal or athletic groups, or [...] encounter Progress Notes Dharmesh Lopez O.D. - 11/11/2015 1:31 PM CDT Eye General CHIEF COMPLAINT diabetic eye exam HISTORY OF PRESENT ILLNESS Non insulin dependent diabetic, blood sugars 102 this morning. Hemoglobin A1c 7.0 on 09/03/15. Patient reports vision good at distance and near. Floater, left eye, x several years, unchanged. Denies pain and flashes of light. Denies diplopia. IMPRESSION / REPORT / PLAN [...] visually significant. CDM Reports - EYEGEN Id: [id number] Status: Fnl documented in this encounter Plan of Treatment Not on filedocumented as of this encounter Visit Diagnoses Not on filedocumented in this encounter Care Teams Freight Dispatcher Relationship Specialty Start Date End Date Marco Martins IV, D.O. PCP - General 11/14/21 [address] [place] [address] documented as of this encounter
--- OUTSIDE RECORDS SUMMARY | 2022-02-03 15:09 | XMS_ITS | Encounter Summary ---
:1939 Author Organization [facility] Address [address] [place] [address] Care Team Providers Name Role Phone Unavailable Primary Care Provider Unavailable Encounter Details Date Type Department Care Team Description 11/18/2010 - 11/19/2010 Hospital Encounter HX RST [facility] 9E [...] How often do you attend sabianist or confucianism services? Patien t refused 10/29/2020 [...] by 0 06/200902/14/2020 (FISH OIL ORAL) mouth. documented as of this encounter Plan of Treatment Not on filedocumented as of this encounter Procedures Procedure Name Priority Date/Time Associated Diagnosis Comme nts DX SPINE 1 VIEW Routine 11/18/2010 9:32 AM Result s for this CDT procedure are i n the results section. DX SPINE 1 VIEW Routine 11/18/2010 9:00 AM Result s for this CDT procedure are i n the results section. DX SPINE 1 VIEW Routine 11/18/2010 9:00 AM Result s for this CDT procedure are i n the results section. documented in this encounter Results Dx Spine 1 View (11/18/2010 9:32 AM CDT) Anatomical Region Laterality Modality Spine N/A Radiographic Imaging Specimen (Source) Anatomical Collection Method Collection Time Re ceived Time Location / / Volume Laterality 11/18/2010 9:32 AM CDT Narrative 11/18/2010 9:39 AM CDT 18-Nov-2010 09:32:00 ??Exam: Sp*Single 1vw Indications: OR 704, NEURO, LUBAR RADICU LOPATHY, REPOSITION LOCALIZATION ORIGINAL REPORT - 18-Nov-2010 09:39:00 Sp*Single 1vw: Lateral lumbar film made for localizatio n purposes demonstrates a probe at the lumbosacral interspace. Electronically signed by: ?? Raymon Cadet MD. ??[id number] 18-Nov-2010 09:3 9 Procedure Note Hill Cadet IV, M.D. - 08/14/2017F ormatting of this note might be different from the original. 18-Nov-2010 09:32:00 Exam: Sp*Single 1vw Indications: OR 704, NEURO, LUBAR RADICU LOPATHY, REPOSITION LOCALIZATION ORIGINAL REPORT - 18-Nov-2010 09:39:00 Sp*Single 1vw: Lateral lumbar film made for localizatio n purposes demonstrates a probe at the lumbosacral interspace. Electronically signed by: Raymon Cadet MD. [id number] 18-Nov-2010 09:39 Kay Bright M.D. IMJuma DIAGNOSTIC IMAGING PROCE DURES Dx Spine 1 View (11/18/2010 9:00 AM CDT) Anatomical Region Laterality Modality Spine N/A Radiographic Imaging Specimen (Source) Anatomical Collection Method Collection Time Re ceived Time Location / / Volume Laterality 11/18/2010 9:00 AM CDT Narrative 11/18/2010 9:16 AM CDT 18-Nov-2010 09:00:00 ??Exam: Sp*Single 1vw Indications: OR704, Lumbar radiculopathy ; ??reposition localization marker ORIGINAL REPORT - 18-Nov-2010 09:16:00 Sp*Single 1vw: Sp*Single 1vw: Initial lateral lumbar film made for loc alization purposes 8:43 a.m. demonstrates a clamp on the spinous process of L5. Second lateral film 8:46 a.m. demonstrates an additional clamp positioned at the lumbosacral interspace. Electronically signed by: ?? Raymon Cadet MD. ??[id number] 18-Nov-2010 09:1 6 Procedure Note Hill Cadet IV, M.D. - 08/14/2017F ormatting of this note might be different from the original. 18-Nov-2010 09:00:00 Exam: Sp*Single 1vw Indications: OR704, Lumbar radiculopathy ; reposition localization marker ORIGINAL REPORT - 18-Nov-2010 09:16:00 Sp*Single 1vw: Sp*Single 1vw: Initial lateral lumbar film made for loc alization purposes 8:43 a.m. demonstrates a clamp on the spinous process of L5. Second lateral film 8:46 a.m. demonstrates an additional clamp positioned at the lumbosacral interspace. Electronically signed by: Raymon Cadet MD. [id number] 18-Nov-2010 09:16 Kay FRANK DIAGNOSTIC IMAGING PROCE DURES Dx Spine 1 View (11/18/2010 9:00 AM CDT) Anatomical Region Laterality Modality Spine N/A Radiographic Imaging Specimen (Source) Anatomical Collection Method Collection Time Re ceived Time Location / / Volume Laterality 11/18/2010 9:00 AM CDT Narrative 11/18/2010 9:16 AM CDT 18-Nov-2010 09:00:00 ??Exam: Sp*Single 1vw Indications: OR704, Lumbar radiculopathy ; localization ORIGINAL REPORT - 18-Nov-2010 09:16:00 Sp*Single 1vw: Sp*Single 1vw: Initial lateral lumbar film made for loc alization purposes 8:43 a.m. demonstrates a clamp on the spinous process of L5. Second lateral film 8:46 a.m. demonstrates an additional clamp positioned at the lumbosacral interspace. Electronically signed by: ?? Raymon Cadet MD. ??[id number] 18-Nov-2010 09:1 6 Procedure Note Hill Cadet IV, M.D. - 08/14/2017F ormatting of this note might be different from the original. 18-Nov-2010 09:00:00 Exam: Sp*Single 1vw Indications: OR704, Lumbar radiculopathy ; localization ORIGINAL REPORT - 18-Nov-2010 09:16:00 Sp*Single 1vw: Sp*Single 1vw: Initial lateral lumbar film made for loc alization purposes 8:43 a.m. demonstrates a clamp on the spinous process of L5. Second lateral film 8:46 a.m. demonstrates an additional clamp positioned at the lumbosacral interspace. Electronically signed by: Raymon Cadet MD. [id number] 18-Nov-2010 09:16 Kay J Bright M.D. IMG DIAGNOSTIC IMAGING PROCE DURES documented in this encounter Visit Diagnoses Not on filedocumented in this encounter
--- OUTSIDE RECORDS SUMMARY | 2022-02-03 15:10 | XMS_ITS | Clinical Summary ---
:1939 Author Organization [facility] [place] [address] Care Team Providers Name Role Phone Raul Dunlap MD Primary Care Provider Allergies No known active allergies Medications Medication Sig Dispensed Refills Start Date End Date Status amLODIPine (NORVASC) 5 mg Take 5 mg by 0 03/20/2019 Active tablet mouth once daily. hydroCHLOROthiazide 50 mg Take 50 mg by 0 02/14/2020 Active tablet mouth once daily. losartan (COZAAR) 100 mg Take 100 mg 0 02/14/2020 Active tablet by mouth once daily. metFORMIN (GLUCOPHAGE) 500 Take 1,000 mg 0 1 Active mg tablet by mouth 2 times daily with meals. rosuvastatin (CRESTOR) 10 Take 10 mg by 0 02/14/2020 Active mg tablet mouth once daily. Active Problems No known active problems Encounters Date Type Specialty Care Team Description 12/25/2021 Office Visit Mario Romero, Ulcer ( Follow up-right great DPM toe healed ulce r) 12/25/2021 Travel 11/13/2021 Office Visit Mario Romero, Follow Up (Diabetic foot DPM check, Right gr eat toe callus) 11/13/2021 Travel from Last 3 Months Social History Tobacco Use Types Packs/Day Years Used Date Never Smoker Smokeless Tobacco: Never Used Tobacco Cessation: Counseling Given: Yes Alcohol Use Standard Drinks/Week Comments Yes 1 (1 standard drink = 0.6 oz pure someti mes less than 1-2 per week alcohol) Alcohol Habits Answer Date Recorded How often do you have a drink Not asked containing alcohol? How many drinks containing alcohol do Not asked you have on a typical day when you are drinking? How often do you have six or more Not asked drinks on one occasion? Comment: sometimes less than 1-2 per week 021 Sex Assigned at Date Recorded Not on file Obstetrics History Last Filed Vital Signs Vital Sign Reading Time Taken Comments Blood Pressure 154/74 02/26/2021 8:13 AM CDT Pulse 56 12/25/2021 7:54 AM CDT Temperature 36.8 ??C (98.2 ??F) 11/29/2020 10:21 AM CDT Respiratory Rate - - Oxygen Saturation 96% 12/25/2021 7:54 AM CDT Inhaled Oxygen Concentration - - Weight 88.9 kg (196 lb) 12/25/2021 7:54 AM CDT Height - - Body Mass Index - - Plan of Treatment Upcoming Encounters Date Type Specialty Care Team Description 02/05/2022 Office Visit Meera Roemro DPM [address] [facility] [address] [place], [place] [address] (Wo rk) 03/19/2022 Office Visit Meera Romero DPM [address] [place], [place] [address] (Wo rk) Health Maintenance Due Date Last Done Comments Pneumococcal series for age 65+ (1 - 1945 PCV) Tdap 1950 Depression screening for age 12+ 1951 BMI (ht and wt on same day) for age 1205/16/1957 18+ Tetanus booster 1959 Zoster (shingles) series for age 50+ 1989 (1 of 2) Medicare Wellness for age 65+ 2004 COVID-19 vaccine series (4 - Booster 07/06/2021 03/05/2021, 08/27/2020, for Pfizer series) 08/06/2020 Influenza for age 65+ 01/15/2022 Results Not on filefrom Last 3 Months Insurance Payer Benefit Plan / Subscriber ID Effective Dates Phone Addre ss Type Group MEDICARE PART B - MEDICARE PART B [id number] 2004-Prese ATTN: CLAIMS HB USE ONLY HB ONLY nt [address] [place] [address] [facility] MR [id number] 2021-[place] [address] [place] [address] Care Teams Bacteriology Technician Relationship Specialty Start Date End Date Raul Dunlap MD PCP - General 08/28/16 [facility] [address] [facility] [place] [address]
[2022-02-03 22:40] LABS: C.Difficile Negative (Negative); CDIFFEPI 027 Presumptive Negative (Negative)
== END 2022-02-03 15:01 | disposition home or self-care (01) ==
PROVIDERS: PCP Nurse Practitioner Family; Visit Provider Nurse Practitioner Family
DX: R19.7 Diarrhea, unspecified (principal)
CPT/HCPCS: 87045; 87046; 87427; 87493

== ENCOUNTER 2022-02-17 10:23 | Outpatient (CLI) | payer MEDICARE, SELFPAY ==
--- OUTSIDE RECORDS SUMMARY | 2022-02-17 10:26 | XMS_ITS | Encounter Summary ---
:[address] [facility] Address [address] [place] [address] Care Team Providers Name Role Phone Eliezer RYAN D.O., Marco Monae Primary Care Provider Encounter Details Date Type Department Care Team Description 01/27/2022 Orders Only Department of Family Marshal Martínez etes Mellitus Type Medicine, [facility] R, R.N. 2 With Di[facility] [place], [place] [address] [place] [address] Neuropathy (HCC) [place], [place] (Primary Dx) [address] [facility] [address] [place] [address] [phone] Social History Tobacco Use Types Packs/Day Years [...] How often do you attend worship or christianity services? Patien t refused 10/29/2020 [...] or slept in a longterm (including now)? Education Answer Date Recorded What [...] Primary documented in this encounter Care Teams Rn Coronary Care Unit Relationship Specialty Start Date End Date Marco Martins IV, D.O. PCP - General 11/14/21 02/03/22 [address] [place] [address] documented as of this encounter
--- OUTSIDE RECORDS SUMMARY | 2022-02-17 10:26 | XMS_ITS | Clinical Summary ---
:1939 Author Organization [facility] Address [address] [place] [address] Care Team Providers Name Role Phone Elsewhere, Pcp Primary Care Provider Unavailable Source Comments Patient records contain information from all sites at [facility]. For routine questions regarding patient records, call [phone] during business hours, M-F 8:00 AM - 5:00 PM Central Time. Record requests for emergency care only can be directed to [phone] at any time.[facility] Allergies No known active allergies [...] test daily. 100 strip 3 08/19/2020 Active ([employer] Ultra Blue Test for testing, Strip) strips may [...] 10/29/2020 Last Assessment & Plan: Formatting of is [...] 03/10/2019 Last Assessment & Plan: Formatting of is note might be different from the original. He is due for an eye exam, this is sched uled for 11/26/2020. He is due for his 3rd hepatitis B vaccine, he will get this at the end of his visit. Callus [place] Foot 10/13/2017 Dermatitis Seborrheic 03/02/2017 Keratosis Seborrheic [...] 02/15/2006 Last Assessment & Plan: Formatting of th [...] Encounters Date Type Specialty Care Team Description 02/04/2022 Clinical Communication Family Medicine Marshal Martínez Follow-up (DM/HTN) R, R.N. 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 from Last 3 Months Immunizations Name [...] How often do you attend holiness or oriental orthodox services? Patien t refused 10/29/2020 Do you belong to any clubs or organizations such as Nabil viera holiness groups, unions, fraternal or athletic groups, [...] or slept in a retirement (including now)? Education Answer Date Recorded What [...] Blood Pressure 01/23/2022 01/23/2021 Check / Re-check Influenza Vaccine (#1) 2022 01/21/2021, 01/04/2020, 02/28/2019, Additional history exists DTaP,Tdap,and Td Vaccines (2 - Td 02/22/2022 02/23/2012, , or Tdap) 05/17/1998 Pneumococcal vaccine (65+ years) Completed 09/13/2014, 01/2005 Zoster Vaccines Completed 11/10/2017, 09/09/2017, 12/10/2008 Hepatitis B Vaccines Completed 10/29/2020, 10/29/2020, 12/26/2019, Additional history exists Medical Devices Implanted Type Area Infant Teacher Device Shelf Model / Identifier Expiration Serial / Date Lot J J Sig Tib Poly Stab #4 10.0m - Giordano [id number] Knee Implant Gonzalez son & Implanted: Qty: 1 on 12/19/2004 [employer] Description: Device Infant Teacher - [employer]. Device Status Text - KNEE [id number]. J J Patella Rev Round 35m - Giordano [id number] Knee Implant Other/Le gacy - See Bob & Bob Implanted: Qty: 1 on 12/25/2013 Implant Description Services Inc Description: Device Infant Teacher - [employer]. Body Location - Other. Right. Device Status Text - KNEE [id number]. Cement Bone Large - Giordano 2840 Misc Other [place]ont Implanted: Qty: 2 on 12/19/2004 Description: Device Infant Teacher - Stryk er Jordon.. Device Status Text - [id number]. Cement Bone Large - Giordano 2840 Misc Other E[place]ont Implanted: Qty: 2 on 12/25/2013 Description: Device Infant Teacher - Stryk er Jordon.. Device Status Text - [id number]. Insurance Payer Benefit Plan / Subscriber ID Effective Dates Phone Addre ss Type Group AARP AAR MEDICARE [id number] 2020-Present [phone] [address] [address] [place] [address] Advance Directives For more information, please contact: [phone] Documents on File Type Date Recorded Patient Pantry Cook Explanati on Advance Directives 12/12/2004 12:00 AM Legacy doc ument. See document viewer. Care Teams Homicide Squad Lieutenant Relationship Specialty Start Date End Date Elsewhere, Pcp PCP - General Internal Medicine 02/04/22
--- OUTSIDE RECORDS SUMMARY | 2022-02-17 10:26 | XMS_ITS | Encounter Summary ---
:1939 Author Organization [facility] Address [address] [place] [address] Care Team Providers Name Role Phone Elsewhere, Pcp Primary Care Provider Unavailable Reason for Visit Reason Comments Follow-up DM/HTN Encounter Details Date Type Department Care Team Description 02/04/2022 Clinical Communication Department of Bhavya Martínez ow-up (DM/HTN) Family Medicine, Marshal Gardner R.N. [facility] [address] [facility] [address] [address] [facility] [phone] [place], [place] (Work) [address] Social History Tobacco Use Types Packs/Day Years [...] 10/29/2020 relatives? How often do you attend christianity or taoism services? Patien t refused 10/29/2020 Do you belong to any clubs or organizations such as Nabil borrero christianity groups, unions, fraternal or athletic groups, or [...] or slept in a halfway (including now)? Education Answer Date Recorded What is the highest level of school you have completed or 12 th grade 10/29/2020 the highest degree you have received? Sex Assigned at Date Recorded Not on file documented as of this encounter Miscellaneous Notes Telephone Encounter - Marshal Martínez R.N. - 02/04/2022 8:51 AM CDT SUBJECTIVE CHIEF COMPLAINT / REASON FOR CALL Follow-up (DM/HTN) Information Discussed Patient was contacted as he is due for follow-up on his hypertension. However, it also looks like the patient is receiving care elsewhere. The patient did confirm that they transferred their care to [facility] that opened where the only [place] used to be. We will have us removed as his PCP PLAN Disposition/Recommendation: Will have patient removed from our panel Information/Education: patient/caller able to teach back Caller agreeable to plan of care: yes The following references were used: nursing clinical judgement documented in this encounter Plan of Treatment Not on filedocumented as of this encounter Visit Diagnoses Not on filedocumented in this encounter Care Teams Rim Technician Relationship Specialty Start Date End Date Elsewhere, Pcp PCP - General Internal Medicine 02/04/22 documented as of this encounter
--- OUTSIDE RECORDS SUMMARY | 2022-02-17 10:27 | XMS_ITS | Encounter Summary ---
:1939 Author Organization [facility] Address [address] [place] [address] Care Team Providers Name Role Phone Lexus Fowler M.D., M.P.H. Primary Care Provider [phone] Reason for Visit Reason Comments Med Refill Encounter Details Date Type Department Care Team Description 08/19/2020 Refill Department of Family Medicine, Marshal Mccoy, RClarenceNClarence Med Refill [facility] [address] [place] [address] [address] [facility] [place] [address] Social History Tobacco Use Types Packs/Day Years [...] How often do you attend synagogue or sabianism services? Patien t refused 10/29/2020 [...] on filedocumented in this encounter Care Teams Wireless Internet Installer Relationship Specialty Start Date End Date Lexus Fowler M.D., M.P.H. PCP - General 11/14/18 11/13/21 [address] [place] [address] documented as of this encounter
--- OUTSIDE RECORDS SUMMARY | 2022-02-17 10:27 | XMS_ITS | Encounter Summary ---
:1939 Author Organization [facility] Address [address] [place] [address] Care Team Providers Name Role Phone Lexus Fowler M.D., M.P.H. Primary Care Provider [phone] Encounter Details Date Type Department Care Team [...] 10/29/2020 relatives? How often do you attend yarsanism or mormonism services? Patien t refused 10/29/2020 Do you belong to any clubs or organizations such as Nabil borrero yarsanism groups, unions, fraternal or athletic groups, or [...] filedocumented in this encounter Care Teams Auto Damage Insurance Appraiser Relationship Specialty Start Date End Date Lexus Fowler M.D., M.P.H. PCP - General 11/14/18 11/13/21 [address] [place] [address] documented as of this encounter
--- OUTSIDE RECORDS SUMMARY | 2022-02-17 10:27 | XMS_ITS | Encounter Summary ---
:1939 Author Organization [facility] Address [address] [place] [address] Care Team Providers Name Role Phone Eliezer RYAN D.O., Fred P Primary Care Provider Reason for Visit Reason Comments Med Refill Encounter Details Date Type Department Care Team Description 11/19/2021 Refill Department of [facility] [place] Med Duff M .D., Med Refill Medicine, Rust brandon [facility] [address] [place] [address] [address] [place] [address] [place] [address] [phone] Social History Tobacco Use Types Packs/Day Years [...] How often do you attend muslim or lutheran services? Patien t refused 10/29/2020 [...] or slept in a alf (including now)? Education Answer Date Recorded What is the highest level of school you have completed or 12 th grade 10/29/2020 the highest degree you have received? Sex Assigned at Date Recorded Not on file documented as of this encounter Plan of Treatment Not on filedocumented as of this encounter Visit Diagnoses Diagnosis Hypertension Essential Primary documented in this encounter Care Teams Farmworker Dairy Relationship Specialty Start Date End Date Marco Martins IV, D.O. PCP - General 11/14/21 02/03/22 [address] [place] [phone] documented as of this encounter
--- OUTSIDE RECORDS SUMMARY | 2022-02-17 10:27 | XMS_ITS | Encounter Summary ---
:1940 Author Organization [facility] Address [address] [place] [address] Care Team Providers Name Role Phone Lexus Fowler M.D., M.P.H. Primary Care Provider [phone] Encounter Details Date Type Department Care Team Description 01/01/2021 Orders Only Department of Family Lexus Fowler, [facility] Medicine, [facility] Alonso, M.P. H. Adult (Primary Dx) Clinic [place], [place] [address] [place] [address] [facility] [address] [place] [address] [phone] Social History Tobacco Use Types Packs/Day Years [...] 10/29/2020 relatives? How often do you attend anabaptism or scientologist services? Patien t refused 10/29/2020 Do you belong to any clubs or organizations such as Not aske d anabaptism groups, unions, fraternal or athletic groups, or [...] slept in a care home (including now)? Education Answer Date Recorded What is the highest level of school you have completed or 12 th grade 10/29/2020 the highest degree you have received? Sex Assigned at Date Recorded Not on file documented as of this encounter Plan of Treatment Not on filedocumented as of this encounter Results Vitamin B12 Assay (01/21/2021 8:04 AM CDT) athologist Signature Vitamin B12 [phone] 01/22/2021 DTL Assay, S ng/L 7:23 AM [...] City/State/ZIP Code Phon e Number [facility] - [address] [place], [place] [address] [facility] [place] [address] Laboratories-[facility] [address] documented in this encounter Visit Diagnoses Diagnosis Maintenance Health Adult - Primary documented in this encounter Care Teams Personnel Clerk Relationship Specialty Start Date End Date Lexus Fowler M.D., M.P.H. PCP - General 11/14/18 11/13/[address] [place] [address] documented as of this encounter
--- OUTSIDE RECORDS SUMMARY | 2022-02-17 10:27 | XMS_ITS | Encounter Summary ---
:1940 Author Organization [facility] Address [address] [place] [address] Care Team Providers Name Role Phone Lexus Fowler M.D., M.P.H. Primary Care Provider [phone] Encounter Details Date Type Department Care Team Description 06/11/2020 Orders Only RST PCP [facility] Javon Martins Jr., M.D. [address] [place] [address] [place] [phone] (Wo rk) Social History Tobacco [...] How often do you attend lutheran or mandaeism services? Patien t refused 10/29/2020 [...] on filedocumented in this encounter Care Teams Display Designer Relationship Specialty Start Date End Date Lexus Fowler M.D., M.P.H. PCP - General 11/14/18 11/13/21 [address] [place] [address] documented as of this encounter
--- OUTSIDE RECORDS SUMMARY | 2022-02-17 10:27 | XMS_ITS | Encounter Summary ---
:1940 Author Organization [facility] Address [address] [place] [address] Care Team Providers Name Role Phone Lexus Fowler M.D., M.P.H. Primary Care Provider [phone] Encounter Details Date Type Department Care Team Description 01/22/2021 Orders Only Department of Family Lexus Fowler, Hyponatremia (Primary Medicine, [facility] Alonso, M.P. H. Dx) [facility] [address] [place] [address] [address] [facility] [address] [place] [address] [phone] Social History Tobacco Use Types Packs/Day Years [...] How often do you attend religion or confucianist services? Patien t refused 10/29/2020 Do you belong to any clubs or organizations such as Not aske d religion groups, unions, fraternal or athletic groups, [...] Primary documented in this encounter Care Teams Powder Blender Relationship Specialty Start Date End Date Lexus Fowler M.D., M.P.H. PCP - General 11/14/18 11/13/21 [address] [place] [address] documented as of this encounter
--- OUTSIDE RECORDS SUMMARY | 2022-02-17 10:27 | XMS_ITS | Encounter Summary ---
:1940 Author Organization [facility] Address [address] [place] [address] Care Team Providers Name Role Phone Lexus Fowler M.D., M.P.H. Primary Care Provider Reason for Visit Reason Comments Diabetes Hypertension Outpatient (Routine) - Closed Specialty Diagnoses / Procedures Referred By Contact Refer red To Contact Family Medicine Lexus Fowler M.D., [facility] M.P.H. 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 Patien t refused 10/29/2020 [...] or slept in a fdc (including now)? Education Answer Date Recorded What [...] documented in this encounter Care Teams Director Telecommunications Relationship Specialty Start Date End Date Lexus Fowler M.D., M.P.H. PCP - General 11/14/18 11/13/[address] [place] [address] documented as of this encounter
--- OUTSIDE RECORDS SUMMARY | 2022-02-17 10:27 | XMS_ITS | Encounter Summary ---
:1940 Author Organization [facility] Address [address] [place] [address] Care Team Providers Name Role Phone Lexus Fowler M.D., M.P.H. Primary Care Provider [phone] Encounter Details Date Type Department Care Team [...] How often do you attend adventism or pentecostal services? Patien t refused 10/29/2020 Do you belong to any clubs or organizations such as Nabil borrero adventism groups, unions, fraternal or athletic [...] on filedocumented in this encounter Care Teams Kiln Charger Relationship Specialty Start Date End Date Lexus Fowler M.D., M.P.H. PCP - General 11/14/18 11/13/21 [address] [place] [address] documented as of this encounter
--- OUTSIDE RECORDS SUMMARY | 2022-02-17 10:27 | XMS_ITS | Encounter Summary ---
:1940 Author Organization [facility] Address [address] [place] [address] Care Team Providers Name Role Phone Lexus Fowler M.D., M.P.H. Primary Care Provider [phone] Reason for Visit Reason Comments Med Refill Encounter Details Date Type Department Care Team Description 08/19/2020 Refill Department of [facility] Lexus Fowler M.D., Med Refill Medicine, [facility] M.P .H. brandon Hernandez [facility] [address] [facility] [address] [place] [address] [place] [address] [phone] Social History Tobacco Use Types Packs/Day Years [...] How often do you attend restorationist or holiness services? Patien t refused 10/29/2020 [...] on filedocumented in this encounter Care Teams Combat Information Center Officer Relationship Specialty Start Date End Date Lexus Fowler M.D., M.P.H. PCP - General 11/14/18 11/13/21 [address] [place] [address] documented as of this encounter
--- OUTSIDE RECORDS SUMMARY | 2022-02-17 10:27 | XMS_ITS | Encounter Summary ---
:1940 Author Organization [facility] Address [address] [place] [address] Care Team Providers Name Role Phone Lexus Fowler M.D., M.P.H. Primary Care Provider [phone] Reason for Referral Outpatient (Routine) - Closed Specialty Diagnoses / Procedures Referred By Contact Refer red To Contact Diagnoses Lesion Skin Face Keratosis Actinic Keratosis Seborrheic Lexus Fowler M.D., [facility] Procedures Lesion Destruction M.P.H. [address] [place] [address] Referral ID Status Reason Start Date Expiration Date Visits Requ ested Visits Authorized [id number] Closed 10/29/2020 10/29/2021 1 1 Reason for Visit Reason Comments Other skin spot Appointment Request (Routine) - Closed Specialty Diagnoses / Procedures Referred By Contact Refer red To Contact Family Medicine Referral ID Status Reason Start Date Expiration Date Visits Requ ested Visits Authorized [id number] Closed 09/11/2020 09/11/2021 1 1 Encounter Details Date Type Department Care Team Description 10/29/2020 Office Visit Department of Lexus Renee, Lesion Skin Face (Primary Dx); Medicine, Estiven Osborn M.D., M.P. H. Maintenance Health Adult; [place], in [address] [facility] Keratosis Actinic; [place], [place] Keratosis Seborrheic [address] [facility] [address] [place] [address] [phone] Social History Tobacco Use Types Packs/Day Years [...] How often do you attend religious or christianity services? Patien t refused 10/29/2020 [...] spends 5 months of theyear down in [place]. # DM II Is well controlled, on [...] Procedure Name Priority Date/Time Associated Comments Diagnosis LA DEST PREMALIGNANT Routine 10/29/2020 10:01 Lesion Ski n Face Results for this LESN 2-14 AM CDT Keratosis Actini c procedure are in Keratosis the results Seborrheic section. LA DEST PREMALIGNANT Routine 10/29/2020 10:01 Lesion Ski n Face Results for this LESN 2-14 AM CDT Keratosis Actini c procedure are in Keratosis the results Seborrheic section. LA DEST PREMALIGNANT Routine 10/29/2020 10:01 Lesion Ski n Face Results for this LESN 1ST AM CDT Keratosis Actini c procedure are in Keratosis the results Seborrheic section. documented in this encounter Results LA DEST PREMALIGNANT LESN 1ST, LA DEST PREMALIGNANT LESN 2-14, LA DEST PREMALIGNANT LESN 2-14 (10/29/2020 10:01 AM [...] Seborrheic documented in this encounter Care Teams Office Automation Technician Relationship Specialty Start Date End Date Lexus Fowler M.D., M.P.H. PCP - General 11/14/18 11/13/[address] [place] [address] documented as of this encounter
--- OUTSIDE RECORDS SUMMARY | 2022-02-17 10:27 | XMS_ITS | Encounter Summary ---
:1940 Author Organization [facility] Address [address] [place] [address] Care Team Providers Name Role Phone Lexus Fowler M.D., M.P.H. Primary Care Provider [phone] Encounter Details Date Type Department Care Team [...] How often do you attend anglican or confucianism services? Patien t refused 10/29/2020 [...] or slept in a prison (including now)? Education Answer Date Recorded What [...] on filedocumented in this encounter Care Teams Tech Brazer Tester Relationship Specialty Start Date End Date Lexus Fowler M.D., M.P.H. PCP - General 11/14/18 11/13/21 [address] [place] [address] documented as of this encounter
--- OUTSIDE RECORDS SUMMARY | 2022-02-17 10:27 | XMS_ITS | Encounter Summary ---
:1940 Author Organization [facility] Address [address] [place] [address] Care Team Providers Name Role Phone Lexus Fowler M.D., M.P.H. Primary Care Provider [phone] Encounter Details Date Type Department Care Team Description 02/14/2020 Hospital Encounter Department of Lexus Fowler Diab etes Mellitus Type 2 With Diabetic Neuropathy (HCC); Laboratory Medicine Alonso Lassiter, M.P .H. Maintenance Health Adult in [address] [facility] [address] [place], [place] [phone] [address] (Work) [phone] Social History Tobacco Use Types Packs/Day Years [...] How often do you attend confucianist or episcopalian services? Patien t refused 10/29/2020 [...] (two) With Diabetic Neuropathy times a day. ([facility]) [employer] Games[employer]CH ULTRA BLUE TEST daily. for 3 01/07/2018 [...] With Diabetic procedu re are in Neuropathy ([facility]) the results section. POTASSIUM, S/P Routine 02/14/2020 9:34 AM Diabetes Mellitus Re sults for this CDT Type 2 With Diabetic procedu re are in Neuropathy ([facility]) the results section. CREATININE WITH Routine 02/14/2020 9:34 AM Diabetes Mellitus R esults for this EGFR, S/P CDT Type 2 With Diabetic procedu re are in Neuropathy ([facility]) the results section. documented in this encounter [...] Address City/State/ZIP Code Phon e Number [facility] - [address] [place], [place] [address] [facility] [place] [address] Laboratories-[facility] [address] Sodium (02/14/2020 9:34 AM [...] Organization Address City/State/ZIP Code Phon e Number [facility] [address] [place] [address] [place] [address] 411 [facility] Potassium (02/14/2020 9:34 AM CDT) athologist Signature Potassium, P 4.3 3.6 - 5.2 02/14/2020 [facility] mmol/L 10:38 AM CDT Specimen Anatomical Collection Method Collection Time Receive d Time (Source) Location / / Volume Laterality Blood (Blood, 02/14/2020 9:34 AM 02/14/20 20 9:34 Venous) CDT AM CDT Lexus Fowler M.D., M.P.H. LAB BLOOD ADD-ON Performing Organization Address City/[facility]/ZIP Code Phon e Number [facility] [address] [place] [address] [facility] [address] (ABNORMAL) Creatinine with Estimated GFR (02/14/2020 9:34 AM CDT) athologist Signature Creatinine 1.26 0.74 - 02/14/2020 [facility] 1.35 mg/dL 10:38 AM CDT eGFR-Black/Afric 62 >=60 02/14/2020 [facility] an Indonesian mL/min/BSA 10:38 AM CDT Comment: ----ADDITIONAL INFORMATION---- Estimated GFR calculated using the 2009 CKD_EPI creatinine equation. eGFR Non-Black/ 54 (L) >=60 mL/min/BSA 02/14/2020 10:38 AM CDT [facility] Indonesian Comment: ----ADDITIONAL INFORMATION---- Estimated GFR calculated using the 2009 CKD_EPI creatinine equation. Specimen Anatomical Collection Method Collection Time Receive d Time (Source) Location / / Volume Laterality Blood (Blood, 02/14/2020 9:34 AM 02/14/20 20 9:34 Venous) CDT AM CDT Lexus Fowler M.D., M.P.H. 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 PCP - General 11/14/18 11/13/21 [address] [place] [address] documented as of this encounter
--- OUTSIDE RECORDS SUMMARY | 2022-02-17 10:27 | XMS_ITS | Encounter Summary ---
:1940 Author Organization [facility] Address [address] [place] [address] Care Team Providers Name Role Phone Lexus Fowler M.D., M.P.H. Primary Care Provider [phone] Encounter Details Date Type Department Care Team Description 10/01/2021 Orders Only RST PCP HLTH MNT Shivani Fowler M.D., M.P.H. [address] [place], [place] [phone] (Wo rk) Social History [...] How often do you attend yarsanism or advent services? Patien t refused 10/29/2020 [...] or slept in a long-term (including now)? Education Answer Date Recorded What is the highest level of school you have completed or 12 th grade 10/29/2020 the highest degree you have received? Sex Assigned at Date Recorded Not on file documented as of this encounter Plan of Treatment Not on filedocumented as of this encounter Visit Diagnoses Not on filedocumented in this encounter Care Teams Client Relations Representative Relationship Specialty Start Date End Date Lexus Fowler M.D., M.P.H. PCP - General 11/14/18 11/13/21 [address] [place] [address] documented as of this encounter
--- OUTSIDE RECORDS SUMMARY | 2022-02-17 10:27 | XMS_ITS | Encounter Summary ---
:1940 Author Organization [facility] Address [address] [place] [address] Care Team Providers Name Role Phone Lexus Fowler M.D., M.P.H. Primary Care Provider Reason for Referral Outpatient (Routine) - Closed Specialty Diagnoses / Procedures Referred By Contact Refer red To Contact Family Lexus Grace M.D., Jesus Owusu M.P.H. [address] [place] [phone] Referral ID Status Reason Start Date Expiration Date Visits Requ ested Visits Authorized [id number] Closed 08/16/2020 08/16/2021 1 1 Reason for Visit Reason Comments Diabetes Outpatient (Routine) - Closed Specialty Diagnoses / Procedures Referred By Contact Refer red To Contact Family Lexus Grace M.D., Jesus Owusu M.P.H. [address] [place] [phone] Referral ID Status Reason Start Date Expiration Date Visits Requ ested Visits Authorized [id number] Closed 02/14/2020 02/13/2021 1 1 Encounter Details Date Type Department Care Team Description 08/16/2020 Office Visit Department of [facility] Lexus Fowler, Diabetes Mellitus Type 2 With Diabetic Neuropathy (HCC) (Primary Dx); Medicine, Estiven Gupta, M.P.H. Hypertension Essential Primary; Family Clinic [address] Diabetes Mellitus 2 Ulcer Toe (HCC); [facility] [address] [address] [facility] SHADI HERNANDEZ [address] Social History Tobacco [...] often do you attend roman catholic or orthodox services? Patien t refused 10/29/2020 [...] to follow-up with podiatry at in the [facility], his appointment is on 08/20. He feels [...] auscultation bilaterally, no wheezing, crackles, rales Skin: [place] and well perfused Extremities: Dorsalis pedis pulses [...] 5 mg daily, losartan 100 mg daily, [id number] mg daily. No changes necessary at this time. 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 I appreciate their cares. #4 Maintenance Health Adult Other orders - Family Medicine office visit (clinic) - Family Medicine office visit (clinic); Future; Expected date: 02/15/2021 - [employer] Ultra Blue Test Strip strips; 1 test daily. for testing, Starting Wed08/16/2020, Normal documented in this encounter Miscellaneous Notes Assessment & Plan Note - Lexus Fowler M.D., M.P.H. - 08/16/2020 1:28 PM CDTAssociated Problem(s): Hypertension Essential Primary Well managed on current regimen of amlodipine 5 mg daily, losartan 100 mg daily, [id number] mg daily. No changes necessary at this [...] Type Priority Associated Diagnoses Order S [facility] Medicine Outpatient Referral Routine Expec margoth: office visit 02/15/2021 (clinic) (Approximate), Expires: 08/17/2023 documented as of this encounter Results Albumin, Random, Urine (01/21/2021 8:33 AM CDT) athologist Signature Albumin, 8.1 mg/L 01/22/2021 DTL Random, U 9:50 AM CDT Comment: ----ADDITIONAL INFORMATION---- This test has been modified from the valentin hurtado's instructions. Its performance characteri stics were determined by [facility] in a manner co nsistent with CLIA [...] Organization Address City/State/ZIP Code Phon e Number [facility] - [address] [place], [place] [address] [facility] [place] [address] Laboratories-[facility] [address] (ABNORMAL) Hemoglobin [...] Address City/State/ZIP Code Phon e Number [facility] [address] [place] [address] (ABNORMAL) Sodium (01/21/2021 8:04 AM CDT) P athologist Signature Sodium, P 133 (L) 135 - 145 01/21/2021 DTL mmol/L 1:25 PM CDT Specimen Anatomical Collection Method Collection Time Receive d Time (Source) Location / / Volume Laterality Blood (Blood, 01/21/2021 8:04 AM 01/22/20 8:04 Venous) CDT AM CDT Lexus Fowler M.D., M.P.H. LAB BLOOD ADD-ON Performing Organization Address City/[facility]/ZIP Code Phon e Number [facility] [address] [place] [address] 05 [place] [address] Potassium (01/21/2021 8:04 AM CDT) P athologist Signature Potassium, P 4.9 3.6 - 5.2 01/21/2021 DTL mmol/L 1:25 PM CDT Specimen Anatomical Collection Method Collection Time Receive d Time (Source) Location / / Volume Laterality Blood (Blood, 01/21/2021 8:04 AM 01/22/20 8:04 Venous) CDT AM CDT Lexus Fowler M.D., M.P.H. LAB BLOOD ADD-ON Performing Organization Address City/State/ZIP Code Phon e Number [facility] - [address] [place] [address] [facility] [place] [address] Laboratories-[address] Creatinine with Estimated GFR (01/21/2021 8:04 AM CDT) P athologist Signature Creatinine 1.13 0.74 - 01/21/2021 DTL 1.35 mg/dL 1:25 PM CDT eGFR-Black/Afric 70 >=60 01/21/2021 DTL an Wallisian mL/min/BSA 1:25 PM CDT Comment: ----ADDITIONAL INFORMATION---- [...] Organization Address City/State/ZIP Code Phon e Number [facility] - [address] [address] [facility]-[address] documented in this encounter Visit Diagnoses Diagnosis 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 PCP - General 11/14/18 11/13/21 [address] [place] [address] documented as of this encounter
--- OUTSIDE RECORDS SUMMARY | 2022-02-17 10:27 | XMS_ITS | Encounter Summary ---
:1940 Author Organization [facility] Address [address] [place] [address] Care Team Providers Name Role Phone Lexus Fowler M.D., M.P.H. Primary Care Provider [phone] Encounter Details Date Type Department Care Team Description 01/21/2021 Hospital Encounter Department of Lexus Fowler Diab etes Mellitus Type 2 With Diabetic Neuropathy (HCC); Laboratory Medicine Alonso Lassiter, M.P .H. Maintenance Health Adult in [address] 411 [facility] [address] [place], [place] [phone] [address] (Work) [phone] Social History Tobacco Use Types Packs/Day Years [...] How often do you attend adventist or church services? Patien t refused 10/29/2020 Do you [...] and as covered by insurance blood-glucose meter [facility] 1 each daily. 1 each 0 08/20/19 [...] M.P.H. LAB BLOOD ADD-ON Performing Organization Address City/[facility]/ZIP Code Phon e Number [facility] - [address] [place], [place] [address] [facility] [place] [place] [address] Laboratories-[facility] [address] (ABNORMAL) Hemoglobin A1c (01/21/2021 [...] Organization Address City/State/ZIP Code Phon e Number [facility] - 200 [place], [place] [address] [facility] [place], [place] [phone] [place] [address] (ABNORMAL) Sodium (01/21/2021 8:04 AM CDT) athologist Signature Sodium, P 133 (L) 135 - 145 01/21/2021 DTL mmol/L 1:25 PM CDT Specimen Anatomical Collection Method Collection Time Receive d Time (Source) Location / / Volume Laterality Blood (Blood, 01/21/2021 8:04 AM 01/22/20 8:04 Venous) CDT AM CDT Lexus Fowler M.D., M.P.H. LAB BLOOD ADD-ON Performing Organization Address City/[facility] Phon e Number [facility] - 200 [place], [place] [address] [facility] [place], [place] [address] [place] [address] Potassium (01/21/2021 8:04 AM CDT) athologist Signature Potassium, P 4.9 3.6 - 5.2 01/21/2021 DTL mmol/L 1:25 PM CDT Specimen Anatomical Collection Method Collection Time Receive d Time (Source) Location / / Volume Laterality Blood (Blood, 01/21/2021 8:04 AM 01/22/20 8:04 Venous) CDT AM CDT Lexus Fowler M.D., M.P.H. LAB BLOOD ADD-ON Performing Organization Address City/State/[facility] Code Phon e Number [facility] - 200 [place], [place] [address] [facility] [address] Creatinine with Estimated GFR (01/21/2021 8:04 AM CDT) athologist Signature Creatinine 1.13 0.74 - 01/21/2021 DTL 1.35 mg/dL 1:25 PM CDT eGFR-Black/Afric 70 >=60 01/21/2021 DTL an Tuvaluan mL/min/BSA 1:25 PM CDT Comment: ----ADDITIONAL INFORMATION---- [...] Organization Address City/State/ZIP Code Phon e Number [facility] - [address] [place] [address] [facility] [place] [place] [address] Laboratories-[address] documented in this encounter Visit Diagnoses Diagnosis Diabetes Mellitus Type 2 With Diabetic N europathy ([facility]) Maintenance Health Adult documented in this encounter Care Teams Installation And Repair Technician Relationship Specialty Start Date End Date Lexus Fowler M.D., M.P.H. PCP - General 11/14/18 11/13/21 [address] [place] [address] documented as of this encounter
--- OUTSIDE RECORDS SUMMARY | 2022-02-17 10:27 | XMS_ITS | Encounter Summary ---
:1940 Author Organization [facility] Address [address] [place] [address] Care Team Providers Name Role Phone Lexus Fowler M.D., M.P.H. 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 [address] [place] [address] Referral ID Status Reason Start Date Expiration Date Visits Requ ested Visits Authorized [id number] Closed 01/08/2020 01/07/2021 1 1 Encounter Details Date Type Department Care Team Description 03/06/2020 Procedure visit Department of Belkis Richter Onychomy cosis (Primary Dx); Orthopedic Surgery A, ALEN, C.N.P. Callus [place] Foot; in [place], Dystrophic Toe nail; [place] Diabetes Mellitus Type 2 Wit h Diabetic Polyneuropathy (HCC); [address] [place] [address] Diabetes Mellitus 2 Ulcer To e (HCC); [place], [place] Deformity Cavu s Foot Acquired Right [phone] Social History Tobacco Use Types Packs/Day Years [...] How often do you attend islam or hoahaoism services? Patien t refused 10/29/2020 Do you belong to any clubs or organizations such as Nabil borrero islam groups, iLincs, [employer]over[employer] or athletic groups, or school groups? How [...] Dr. Lexus Fowler and Dr. Raul Dunlap ([facility]) February 14, 2020 for activecare management. [...] is also preparing for his trip to [place]. There is no sign of infection. The [...] week in August upon his return from [place]. 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 PCP - General 11/14/18 11/13/21 [address] [place] [address] documented as of this encounter
--- OUTSIDE RECORDS SUMMARY | 2022-02-17 10:27 | XMS_ITS | Encounter Summary ---
:1940 Author Organization [facility] Address [address] [place] [address] Care Team Providers Name Role Phone Lexus Fowler M.D., M.P.H. Primary Care Provider [phone] Encounter Details Date Type Department Care Team Description 02/12/2020 Hospital Encounter Department of Lexus Fowler Diab etes Mellitus Laboratory Medicine Alonso Lassiter, M.P .H. Type [address] Diabetic Neuropathy [place], [place] ([facility]) 411 [facility] [address] [place], [place] [phone] [address] (Work) [phone] Social History Tobacco Use Types Packs/Day Years [...] How often do you attend zoroastrian or latter day services? Patien t refused [...] With Diabetic Neuropathy times a day. ([facility]) ONETOUCH ULTRA BLUE TEST daily. 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 PCP - General 11/14/18 11/13/[address] [place] [address] documented as of this encounter
--- OUTSIDE RECORDS SUMMARY | 2022-02-17 10:27 | XMS_ITS | Encounter Summary ---
:1940 Author Organization [facility] Address [address] [place] [address] Care Team Providers Name Role Phone Lexus Fowler M.D., M.P.H. Primary Care Provider [phone] Reason for Referral Outpatient (Routine) - Closed Specialty Diagnoses / Procedures Referred By Contact Refer red To Contact Family Lexus Grace M.D., Jesus Owusu M.P.H. [address] [place] [phone] Referral ID Status Reason Start Date Expiration Date Visits Requ ested Visits Authorized [id number] Closed 02/14/2020 02/13/2021 1 1 Reason for Visit Reason Comments Diabetes and hypertension Outpatient (Routine) - Closed Specialty Diagnoses / Procedures Referred By Contact Refer red To Contact Family Lexus Grace M.D., Jesus Owusu M.P.H. 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 Diabetes Mellitus Type 2 (HCC); Family [facility] [address] [facility] Adult; brandon Hernandez [place], [place] Hyperten brook Essential Primary; [place] [address] Hyperlipidemia [address] [facility] [phone] SHADI HERNANDEZ (Work) [phone] Social History Tobacco Use Types Packs/Day Years [...] How often do you attend zoroastrian or jain services? Patien t refused 10/29/2020 [...] auscultation bilaterally, no wheezing, crackles, rales Skin: [place] and well perfused ASSESSMENT / PLAN #1 [...] Expected date: 08/13/2020 (Before next visit) #3 [facility] Adult - Lipid Panel; Future; Expected date: [...] Code Phon e Number [facility] - [address] [place], [place] [address] [facility] [place] [address] Laboratories-[facility] [address] Albumin, Random, Urine (02/14/2020 9:44 AM CDT) athologist Signature Albumin, 9.8 mg/L 02/14/2020 DTL Random, U 3:19 PM CDT Comment: ----ADDITIONAL INFORMATION---- This test has been modified from the man ufacturer's instructions. Its performance characteri stics were determined by [facility] in a manner co nsistent with CLIA [...] Code Phon e Number [facility] - 200 [place], [place] [address] [facility] [place] [address] [place] [address] Lipid Panel (02/14/2020 9:34 AM CDT) [...] M.P.H. LAB BLOOD ADD-ON Performing Organization Address City/[facility]/ZIP Code Phon e Number [facility] - 200 [place], [place] [address] [facility] [place] [address] Laboratories-[facility] 200 [facility] Sodium (02/14/2020 9:34 AM CDT) P athologist Signature Sodium, P 136 135 - 145 02/14/2020 [facility] mmol/L 10:38 AM CDT Specimen Anatomical Collection Method Collection Time Receive d Time (Source) Location / / Volume Laterality Blood (Blood, 02/14/2020 9:34 AM 02/14/20 20 9:34 Venous) CDT AM CDT Lexus Fowler M.D., M.P.H. LAB BLOOD ADD-ON Performing Organization Address City/State/ZIP Code Phon e Number [facility] 411 [place] [address] [place] [address] 411 [facility] Potassium (02/14/2020 9:34 AM CDT) P athologist Signature Potassium, P 4.3 3.6 - 5.2 02/14/2020 [facility] mmol/L 10:38 AM CDT Specimen Anatomical Collection Method Collection Time Receive d Time (Source) Location / / Volume Laterality Blood (Blood, 02/14/2020 9:34 AM 02/14/20 20 9:34 Venous) CDT AM CDT Lexus Fowler M.D., M.P.H. LAB BLOOD ADD-ON Performing Organization Address City/[facility]/ZIP Code Phon e Number [address] [address] [facility] [place], [place] [phone] [place] [address] (ABNORMAL) Creatinine with Estimated GFR (02/14/2020 9:34 AM CDT) P athologist Signature Creatinine 1.26 0.74 - 02/14/2020 [facility] 1.35 mg/dL 10:38 AM CDT eGFR-Black/Afric 62 >=60 02/14/2020 [facility] an Dominican mL/min/BSA 10:38 AM CDT Comment: ----ADDITIONAL INFORMATION---- Estimated GFR calculated using the 2009 CKD_EPI creatinine equation. eGFR Non-Black/ 54 (L) >=60 mL/min/BSA 02/14/2020 10:38 AM CDT [facility] Dominican Comment: ----ADDITIONAL INFORMATION---- Estimated GFR calculated using the 2009 CKD_EPI creatinine equation. Specimen Anatomical Collection Method Collection Time Receive d Time (Source) Location / / Volume Laterality Blood (Blood, 02/14/2020 9:34 AM 02/14/20 20 9:34 Venous) CDT AM CDT Lexus Fowler M.D., M.P.H. LAB BLOOD ADD-ON Performing Organization Address City/[facility]/ZIP Code Phon e Number [address] [address] [facility] [place], [place] [address] [place] [address] documented in this encounter Visit Diagnoses Diagnosis Diabetes Mellitus Type 2 With Diabetic N europathy (HCC) - Primary Diabetes Mellitus Type 2 (HCC) Maintenance Health Adult Hypertension Essential Primary Hyperlipidemia documented in this encounter Care Teams Reagent Tender Relationship Specialty Start Date End Date Lexus Fowler M.D., M.P.H. PCP - General 11/14/18 11/13/21 [address] [place] [address] documented as of this encounter
--- OUTSIDE RECORDS SUMMARY | 2022-02-17 10:27 | XMS_ITS | Encounter Summary ---
:1940 Author Organization [facility] Address [address] [place] [address] Care Team Providers Name Role Phone Lexus Fowler M.D., M.P.H. Primary Care Provider [phone] Reason for Visit Reason Comments COVID Inquiry Encounter Details Date Type Department Care Team Description 09/11/2020 Clinical Communication Department of Lexus Fowler Family MedicineMaikol M.D., M.P.H. [facility] [address] [facility] [address] 411 [facility] [phone] [place], [place] (Work) [address] [phone] Social History Tobacco Use Types Packs/Day Years [...] How often do you attend jain or jain services? Patien t refused 10/29/2020 [...] appointment being requested?: More than 14 days [place]- follow local process (End Screening) Testing Recommendation Endpoint Is testing recommended? : Not recommended to test Plan: Endpoint recommendation: Followed regional [facility]TG *Reminder if sending patient for testing in [facility] or [facility], route encounter to the correct testing pool. documented in this encounter Plan of Treatment Not on filedocumented as of this encounter Visit Diagnoses Not on filedocumented in this encounter Care Teams Composition Mixer Relationship Specialty Start Date End Date Lexus Fowler M.D., M.P.H. PCP - General 11/14/18 11/13/21 [address] [place] [address] documented as of this encounter
--- OUTSIDE RECORDS SUMMARY | 2022-02-17 10:27 | XMS_ITS | Encounter Summary ---
:1940 Author Organization [facility] Address [address] [place] [address] Care Team Providers Name Role Phone Lexus Fowler M.D., M.P.H. Primary Care Provider [phone] Encounter Details Date Type Department Care Team Description 02/14/2020 Hospital Encounter Department of Lexus Fowler Diab etes Mellitus Laboratory Medicine Alonso Lassiter, M.P .H. Type 2 With in [address] Diabetic Neuropathy [place], [place] ([facility]) 411 [facility] [address] [place], [place] [phone] [address] (Work) [phone] Social History Tobacco Use Types Packs/Day Years [...] How often do you attend spiritism or holiness services? Patien t refused 10/29/2020 [...] (two) With Diabetic Neuropathy times a day. ([facility]) [employer] Network[employer]CH ULTRA BLUE TEST daily. for 3 01/07/2018 [...] Its performance characteri stics were determined by [facility] in a manner co nsistent with [...] Organization Address City/State/ZIP Code Phon e Number [facility] [address] [place], [place] [address] [facility] [place] [address] Laboratories-[facility] [address] [place] [address] Laboratories-[facility] [address] [facility] documented in this encounter Visit Diagnoses Diagnosis Diabetes Mellitus Type 2 With Diabetic N europathy (HCC) documented in this encounter Care Teams Ethnic Origins Teacher Relationship Specialty Start Date End Date Lexus Fowler M.D., M.P.H. PCP - General 11/14/18 11/13/21 [address] [place] [address] documented as of this encounter
--- OUTSIDE RECORDS SUMMARY | 2022-02-17 10:27 | XMS_ITS | Encounter Summary ---
:1940 Author Organization [facility] Address [address] [place] [address] Care Team Providers Name Role Phone Lexus Fowler M.D., M.P.H. Primary Care Provider [phone] Encounter Details Date Type Department Care Team Description 08/15/2020 Hospital Encounter Department of Lexus Fowler Diab etes Mellitus Laboratory Medicine Alonso Lassiter, M.P .H. Type 2 With in [address] Diabetic Neuropathy [place], [place] ([facility]) [address] [facility] [address] [place], [place] [phone] [address] (Work) [phone] Social History Tobacco Use Types Packs/Day Years [...] How often do you attend religion or anabaptism services? Patien t refused 10/29/2020 Do you [...] Diabetic Neuropathy times a day. ([facility]) ONETOUCH ULTRA BLUE TEST daily. [...] Address City/State/ZIP Code Phon e Number [facility] - [address] [place] [address] 05 [facility] [place] [address] Laboratories-[facility] 200 [facility] documented in this encounter Visit Diagnoses Diagnosis Diabetes Mellitus Type 2 With Diabetic N europathy (HCC) documented in this encounter Care Teams Distribution Clerk Relationship Specialty Start Date End Date Lexus Fowler M.D., M.P.H. PCP - General 11/14/18 11/13/21 [address] [place] [address] documented as of this encounter
--- OUTSIDE RECORDS SUMMARY | 2022-02-17 10:27 | XMS_ITS | Encounter Summary ---
:1940 Author Organization [facility] Address [address] [place] [address] Care Team Providers Name Role Phone Lexus Fowler M.D., M.P.H. Primary Care Provider [phone] Reason for Visit Reason Comments Med Refill Encounter Details Date Type Department Care Team Description 07/15/2021 Refill Department of Med Gibson M .D., Med Refill Medicine, [facility] brandon Cameron [facility] [address] [place] [address] [place] [address] [place] [address] [phone] Social History Tobacco Use Types Packs/Day Years [...] 10/29/2020 relatives? How often do you attend hoahaoism or oriental orthodox services? Patien t refused 10/29/2020 Do you belong to any clubs or organizations such as Nabil borrero hoahaoism groups, unions, fraternal or athletic groups, or [...] documented in this encounter Care Teams Manager Military Relationship Specialty Start Date End Date Lexus Fowler M.D., M.P.H. PCP - General 11/14/18 11/13/21 [address] [place] [address] documented as of this encounter
--- OUTSIDE RECORDS SUMMARY | 2022-02-17 10:27 | XMS_ITS | Encounter Summary ---
:1940 Author Organization [facility] Address [address] [place] [address] Care Team Providers Name Role Phone Lexus Fowler M.D., M.P.H. Primary Care Provider [phone] Reason for Visit Reason Comments Pre-visit Testing Orders Encounter Details Date Type Department Care Team Description 01/01/2021 Clinical Department of Lexus Fowler Pre-visit Testing Communication Family MedicineMaikol M.D., M.P.H. Orders [facility] [address] [facility] [address] [address] [facility] [phone] [place], [place] (Work) [phone] Social History Tobacco Use Types Packs/Day Years [...] How often do you attend buddhism or synagogue services? Patien t refused 10/29/2020 [...] or slept in a assisted (including now)? Education Answer Date Recorded What [...] 2:30 PM CDT Caller: pt Callback Number: [phone] Best communication method: call Pharmacy: Request/Details: Pt has labs on 01-21 He is asking for a B-12 labs to be added to that appt. Thanks! Please respond to [facility] Scheduling pool if necessary documented in this encounter Plan of Treatment Not on filedocumented as of this encounter Visit Diagnoses Not on filedocumented in this encounter Care Teams Learning Officer Relationship Specialty Start Date End Date Lexus Fowler M.D., M.P.H. PCP - General 11/14/18 11/13/21 [address] [place] [address] documented as of this encounter
--- OUTSIDE RECORDS SUMMARY | 2022-02-17 10:27 | XMS_ITS | Encounter Summary ---
:1940 Author Organization [facility] Address [address] [place] [address] Care Team Providers Name Role Phone Lexus Fowler M.D., M.P.H. Primary Care Provider [phone] Encounter Details Date Type Department Care Team Description 01/21/2021 Hospital Encounter Department of Lexus Fowler Diab etes Mellitus Laboratory Medicine Alonso Lassiter, M.P .H. Type 2 With [address] Diabetic Neuropathy [place], [place] ([facility]) [address] [facility] [address] [place], [place] [phone] [address] (Work) [phone] Social History Tobacco Use Types Packs/Day Years [...] How often do you attend lutheran or anabaptist services? Patien t refused 10/29/2020 Do you belong to any clubs or organizations such as Not aske d lutheran groups, unions, fraternal or athletic groups, [...] and as covered by insurance blood-glucose meter [facility] 1 each daily. 1 each 0 08/20/19 [...] With Diabetic Neuropathy times a day with ([facility]) meals. rosuvastatin (CRESTOR) 10 Take 1 tablet [...] characteri stics were determined by [facility] in a manner co nsistent with [...] Organization Address City/State/ZIP Code Phon e Number [facility] - [address] [place] [address] [facility] [place] [address] [facility] 200 [facility] documented in this encounter Visit Diagnoses Diagnosis Diabetes Mellitus Type 2 With Diabetic N europathy (HCC) documented in this encounter Care Teams Bridge Opener Relationship Specialty Start Date End Date Lexus Fowler M.D., M.P.H. PCP - General 11/14/18 11/13/[address] [place] [address] documented as of this encounter
--- OUTSIDE RECORDS SUMMARY | 2022-02-17 10:27 | XMS_ITS | Encounter Summary ---
:1940 Author Organization [facility] Address [address] [place] [address] Care Team Providers Name Role Phone Lexus Fowler M.D., M.P.H. Primary Care Provider [phone] Reason for Visit Outpatient (Routine) - Closed Specialty Diagnoses / Procedures Referred By Contact Refer red To Contact Vascular Medicine Sherry Slater APRN, [facility] C.N.PClarence, M.S.N. 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 Patien t refused 10/29/2020 [...] - You may wear shoes time study statistician in your house only. Beyond day 14 - If no problems have developed, you may begin wearing them outside the house. If you have any wound care questions or concerns please contact the Vascular Center at [phone]. If you need to cancel, reschedule, or schedule a wound care appointment please call [phone]. Provider Signature Emelyn Diamond APRN, C.N.P., Maximiliano.N.P. [...] he was seen at a clinic in [place] for an infected right great toe callus [...] Of note, he will be leaving for [place] onMarch 11, 2020. The return in early [...] 2 With Diabetic Neuropathy (HCC) #3 Callus [place] Foot I discussed my assessment findings and [...] wear shoes. They will be leaving for [place] later this month. He will be gone until late July of 2020. He was encouraged to find a wound care provider while in [place]. He would benefit from monthly debridement.Upon return, [...] 2 With Diabetic N europathy (HCC) Callus [place] Foot documented in this encounter Care Teams Tire Changer Aircraft Relationship Specialty Start Date End Date Lexus Fowler M.D., M.P.H. PCP - General 11/14/18 11/13/21 [address] [place] [address] documented as of this encounter
--- OUTSIDE RECORDS SUMMARY | 2022-02-17 10:28 | XMS_ITS | Encounter Summary ---
:1940 Author Organization [facility] Address [address] [place] [address] Care Team Providers Name Role Phone Lexus Fowler M.D., M.P.H. Primary Care Provider [phone] Encounter Details Date Type Department Care Team [...] How often do you attend religion or nondenominational services? Patien t refused 10/29/2020 [...] on filedocumented in this encounter Care Teams Casino Gaming Worker Relationship Specialty Start Date End Date Lexus Fowler M.D., M.P.H. PCP - General 11/14/18 11/13/21 [address] [place] [address] documented as of this encounter
--- OUTSIDE RECORDS SUMMARY | 2022-02-17 10:28 | XMS_ITS | Encounter Summary ---
:1940 Author Organization [facility] Address [address] [place] [address] Care Team Providers Name Role Phone Lexus Fowler M.D., M.P.H. 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 [address] [place] [address] Referral ID Status Reason Start Date Expiration Date Visits Requ ested Visits Authorized [id number] Closed 01/08/2020 01/07/2021 1 1 Reason for Visit Outpatient (Routine) - Closed Specialty Diagnoses / Procedures Referred By Contact Refer red To Contact Orthopedic Surgery Diagnoses Onychomycosis Callus [place] Foot Dystrophic Toenail Diabetes Mellitus Type 2 With Diabetic Polyneuropathy (HCC) Diabetes Mellitus 2 Ulcer Toe (HCC) Belkis Richter [facility] ALEN, C.N.P. [address] [place] [address] Referral ID Status Reason Start Date Expiration Date Visits Requ ested Visits Authorized [id number] Closed 11/15/2019 11/14/2020 1 1 Encounter Details Date Type Department Care Team Description 01/08/2020 Procedure visit Department of Belkis Richter (Primary Dx); Orthopedic Surgery ALEN Lozano, C.N.P. Callus [place] Foot; in [place], Dystrophic Toe nail; [place] Diabetes Mellitus Type 2 Wit h Diabetic Polyneuropathy (HCC); [address] Diabetes Mellitus 2 Ulcer To e (HCC); [place], [place] Deformity Cavu s Foot Acquired Right [address] Social History Tobacco Use Types Packs/Day Years [...] his time outdoors. He last saw Dr. Lexus Fowler and Dr. Raul Dunlap ([facility]) September 28, 2019 for active care management. 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 PCP - General 11/14/18 11/13/21 [address] [place] [address] documented as of this encounter
--- OUTSIDE RECORDS SUMMARY | 2022-02-17 10:28 | XMS_ITS | Encounter Summary ---
:1940 Author Organization [facility] Address [address] [place] [address] Care Team Providers Name Role Phone Lexus Fowler M.D., M.P.H. Primary Care Provider [phone] Encounter Details Date Type Department Care Team [...] 10/29/2020 relatives? How often do you attend samaritan or spiritism services? Patien t refused 10/29/2020 Do you belong to any clubs or organizations such as Nabil borrero samaritan groups, unions, fraternal or athletic groups, or [...] or slept in a residential (including now)? Sex Assigned at Date Recorded [...] on filedocumented in this encounter Care Teams Principal Research Economist Relationship Specialty Start Date End Date Lexus Fowler M.D., M.P.H. PCP - General 11/14/18 11/13/21 [address] [place] [address] documented as of this encounter
--- OUTSIDE RECORDS SUMMARY | 2022-02-17 10:28 | XMS_ITS | Encounter Summary ---
:1940 Author Organization [facility] Address [address] [place] [address] Care Team Providers Name Role Phone Lexus Fowler M.D., M.P.H. 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 [address] [place] [address] Referral ID Status Reason Start Date Expiration Date Visits Requ ested Visits Authorized [id number] Closed 10/30/2019 10/29/2020 1 1 Reason for Visit Outpatient (Routine) - Closed Specialty Diagnoses / Procedures Referred By Contact Refer red To Contact Vascular Medicine Emelyn Diamond APRN, [facility] C.N.PClarence, D.N.P. 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 How often do you attend mu-ism or orthodoxy services? Patien t refused 10/29/2020 Do you belong to any clubs or organizations such as Nabil borrero mu-ism groups, unions, fraternal or athletic groups, or [...] through 14 - You may wear shoes senior advocate in your house only. Beyond day 14 - If no problems have developed, you may begin wearing them outside the house. If you have any wound care questions or concerns please contact the Vascular Center at [phone]. If you need to cancel, reschedule, or schedule a wound care appointment please call [phone]. Provider Signature Bette Juarez APRN, C.N.Letha., M.S.N. documented in this encounter Progress Notes Bette Juarez APRN, C.N.P., M.S.N. - 10/30/2019 2:30 PM CDT REFERRAL SOURCE Emelyn Diamond APRN, C.N.Letha., D.N.P. [address] [place] [phone] SUBJECTIVE CHIEF COMPLAINT / REASON FOR VISIT Re-evaluation of right distal 1st toe ulcer. Patient seen at the [facility] wound care clinic. HISTORY OF PRESENT ILLNESS [...] Name Type Priority Associated Diagnoses Order S [facility] Vascular Medicine Outpatient Referral Routine Diabetes Mellitu [...] Right documented in this encounter Care Teams Sewer Pipe Sorter Relationship Specialty Start Date End Date Lexus Fowler M.D., M.P.H. PCP - General 11/14/18 11/13/21 [address] [place] [address] documented as of this encounter
--- OUTSIDE RECORDS SUMMARY | 2022-02-17 10:28 | XMS_ITS | Encounter Summary ---
:1940 Author Organization [facility] Address [address] [place] [address] Care Team Providers Name Role Phone Lexus Fowler M.D., M.P.H. Primary Care Provider [phone] Reason for Referral Outpatient (Routine) - Closed Specialty Diagnoses / Procedures Referred By Contact Refer red To Contact Vascular Medicine [facility]elyn [facility] C.N.P., D.N.P. [address] [place] [phone] Referral ID Status Reason Start Date Expiration Date Visits Requ ested Visits Authorized [id number] Closed 10/06/2019 10/05/2020 1 1 RI/CAT/PET Scan (Routine) - Closed Specialty Diagnoses / Procedures Referred By Contact Refer red To Contact Radiology Diagnoses Diabetes Mellitus 2 Ulcer Toe (HCC) [facility] Procedures MR Foot Right without IV Contrast C.N.P., D.N.P. [address] [place] [phone] Referral ID Status Reason Start Date Expiration Date Visits Requ ested Visits Authorized [id number] Closed 10/06/2019 10/05/2020 1 1 Reason for Visit Outpatient (Routine) - Closed Specialty Diagnoses / Procedures Referred By Contact Refer red To Contact Vascular Medicine Diagnoses Diabetes Mellitus 2 Ulcer Toe (HCC) Roslyn Veliz APRN, [facility] C.N.P. 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 Cellulitis Foot Right [place] [address] [facility] [address] [place] [phone] Social History Tobacco Use Types Packs/Day Years [...] How often do you attend hoahaoism or lutheran services? Patien t refused 10/29/2020 Do you belong to any clubs or organizations such as Nabil viera hoahaoism groups, unions, fraternal or athletic groups, [...] through 14 - You may wear shoes manager maritime in your house only. Beyond day 14 - If no problems have developed, you may begin wearing them outside the house. If you have any wound care questions or concerns please contact the Vascular Center at [phone]. If you need to cancel, reschedule, or schedule a wound care appointment please call [phone]. Provider Signature Emelyn Diamond APRN, C.N.P., D.N.P. documented in this encounter Consult Notes Emelyn Diamond APRN C.N.P., D.N.P. - 10/06/2019 10:00 AM CDT SUBJECTIVE REFERRAL INFORMATION Roslyn Veliz, ALEN, C.N.P. [address] [place] [address] CHIEF COMPLAINT/REASON FOR VISIT Initial evaluation of [...] he was seen at a clinic in [place] for an infected right great toe callus [...] Name Type Priority Associated Diagnoses Order S [facility] Vascular Medicine Outpatient Referral Routine Exp [...] Organization Address City/State/ZIP Code Phon e Number [facility] - [address] [place] [address] [address] [facility] [place] [address] [facility] 200 [facility] CBC without Differential (10/06/2019 10:54 AM CDT) [...] Organization Address City/State/ZIP Code Phon e Number [facility] - 200 [place], [place] [address] 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 PCP - General 11/14/18 11/13/[address] [place] [address] documented as of this encounter
--- OUTSIDE RECORDS SUMMARY | 2022-02-17 10:28 | XMS_ITS | Encounter Summary ---
:1940 Author Organization [facility] Address [address] [place] [address] Care Team Providers Name Role Phone Lexus Fowler M.D., M.P.H. Primary Care Provider [phone] Encounter Details Date Type Department Care Team [...] 10/29/2020 relatives? How often do you attend pentecostalism or congregational services? Patien t refused 10/29/2020 Do you belong to any clubs or organizations such as Nabil borrero pentecostalism groups, unions, fraternal or athletic groups, or [...] on filedocumented in this encounter Care Teams Heat Pump Installer Relationship Specialty Start Date End Date Lexus Fowler M.D., M.P.H. PCP - General 11/14/18 11/13/21 [address] [place] [address] documented as of this encounter
--- OUTSIDE RECORDS SUMMARY | 2022-02-17 10:28 | XMS_ITS | Encounter Summary ---
:1940 Author Organization [facility] Address [address] [place] [address] Care Team Providers Name Role Phone Lexus Fowler M.D., M.P.H. Primary Care Provider [phone] Encounter Details Date Type Department Care Team [...] How often do you attend druze or mandaeism services? Patien t refused 10/29/2020 Do you belong to any clubs or organizations such as Nabil borrero druze groups, unions, fraternal or athletic groups, [...] on filedocumented in this encounter Care Teams Railroad Car Truck Builder Relationship Specialty Start Date End Date Lexus Fowler M.D., M.P.H. PCP - General 11/14/18 11/13/21 [address] [place] [address] documented as of this encounter
--- OUTSIDE RECORDS SUMMARY | 2022-02-17 10:28 | XMS_ITS | Encounter Summary ---
:1940 Author Organization [facility] Address [address] [place] [address] Care Team Providers Name Role Phone Lexus Fowler M.D., M.P.H. Primary Care Provider [phone] Reason for Visit Outpatient (Routine) - Closed Specialty Diagnoses / Procedures Referred By Contact Refer red To Contact Vascular Medicine Sherry Slater APRN, [facility] C.N.P., M.S.N. [address] [place] [phone] Referral ID Status Reason Start Date Expiration Date Visits Requ ested Visits Authorized [id number] Closed 01/15/2020 01/14/2021 1 1 Encounter Details Date Type Department Care Team Description 02/06/2020 Nurse Only Department of Vascular Sherry Slater APRN, C.N.P., M.S.N. [address] [place] [phone] Medicine in [place], Melissa Chatterjee R.N. [address] [place] [phone] [phone] Social History Tobacco Use [...] How often do you attend latter-day or adventist services? Patien t refused 10/29/2020 [...] through 14 - You may wear shoes whitewater river guide in your house only. Beyond day 14 - If no problems have developed, you may begin wearing them outside the house. If you have any wound care questions or concerns please contact the Vascular Center at [phone]. If you need to cancel, reschedule, or schedule a wound care appointment please call [phone]. Provider Signature Melissa Chatterjee R.N. documented in this encounter Progress Notes Melissa Chatterjee R.N. - 02/06/2020 9:00 AM CDT CHIEF COMPLAINT/REASON FOR VISIT: RN to assess and debride. Vinayak Vazquez was seen at [facility] wound [facility].. REFERRAL: Sherry Slater APRN, [...] (HCC) documented in this encounter Care Teams Paste Mixer Liquid Relationship Specialty Start Date End Date Lexus Fowler M.D., M.P.H. PCP - General 11/14/18 11/13/21 [address] [place] [address] documented as of this encounter
--- OUTSIDE RECORDS SUMMARY | 2022-02-17 10:28 | XMS_ITS | Encounter Summary ---
:1940 Author Organization [facility] Address [address] [place] [address] Care Team Providers Name Role Phone Lexus Fowler M.D., M.P.H. Primary Care Provider [phone] Encounter Details Date Type Department Care Team [...] How often do you attend taoist or caodaism services? Patien t refused 10/29/2020 [...] on filedocumented in this encounter Care Teams Gusset Folder Relationship Specialty Start Date End Date Lexus Fowler M.D., M.P.H. PCP - General 11/14/18 11/13/21 [address] [place] [address] documented as of this encounter
--- OUTSIDE RECORDS SUMMARY | 2022-02-17 10:28 | XMS_ITS | Encounter Summary ---
:1940 Author Organization [facility] Address [address] [place] [address] Care Team Providers Name Role Phone Lexus Fowler M.D., M.P.H. Primary Care Provider [phone] Reason for Visit Reason Comments ALETHEA Nurse Line Encounter Details Date Type Department Care Team Description 12/22/2019 Clinical Communication Department of Lexus Fowler Nurse Joan Family MedicineMaikol M.D., M.P.H. [facility] [address] [facility] [address] [address] [facility] [phone] [place], [place] (Work) [phone] Social History Tobacco Use Types Packs/Day Years [...] How often do you attend quaker or bahai services? Patien t refused 10/29/2020 [...] on filedocumented in this encounter Care Teams Healthcare Translator Relationship Specialty Start Date End Date Lexus Fowler M.D., M.P.H. PCP - General 11/14/18 11/13/21 [address] [place] [address] documented as of this encounter
--- OUTSIDE RECORDS SUMMARY | 2022-02-17 10:28 | XMS_ITS | Encounter Summary ---
:1940 Author Organization [facility] Address [address] [place] [address] Care Team Providers Name Role Phone Lexus Fowler M.D., M.P.H. Primary Care Provider Encounter Details Date Type Department Care Team Description 01/17/2020 Nurse Triage Department of [facility] Shaina Barr, Medicine, [facility] [address] [place] [address] [address] [place] [address] Social History Tobacco Use Types Packs/Day Years [...] How often do you attend sabianist or hoahaoism services? Patien t refused 10/29/2020 [...] on filedocumented in this encounter Care Teams Cell Preparer Relationship Specialty Start Date End Date Lexus Fowler M.D., M.P.H. PCP - General 11/14/18 11/13/21 [address] [place] [address] documented as of this encounter
--- OUTSIDE RECORDS SUMMARY | 2022-02-17 10:28 | XMS_ITS | Encounter Summary ---
:1940 Author Organization [facility] Address [address] [place] [address] Care Team Providers Name Role Phone Lexus Fowler M.D., M.P.H. Primary Care Provider [phone] Encounter Details Date Type Department Care Team [...] 10/29/2020 relatives? How often do you attend yazidism or mandaeism services? Patien t refused 10/29/2020 Do you belong to any clubs or organizations such as Nabil borrero yazidism groups, unions, fraternal or athletic groups, or [...] on filedocumented in this encounter Care Teams Mixer Pigment Relationship Specialty Start Date End Date Lexus Fowler M.D., M.P.H. PCP - General 11/14/18 11/13/21 [address] [place] [address] documented as of this encounter
--- OUTSIDE RECORDS SUMMARY | 2022-02-17 10:28 | XMS_ITS | Encounter Summary ---
:1940 Author Organization [facility] Address [address] [place] [address] Care Team Providers Name Role Phone Lexus Fowler M.D., M.P.H. Primary Care Provider [phone] Reason for Visit Reason Comments COVID Inquiry Encounter Details Date Type Department Care Team Description 11/13/2019 Clinical Communication Department of Lexus Fowler Family MedicineMaikol M.D., M.P.H. [facility] [address] [facility] [address] 411 [facility] [phone] [place], [place] (Work) [address] [phone] Social History Tobacco Use Types Packs/Day Years [...] How often do you attend presybeterian or jewish services? Patien t refused 10/29/2020 [...] - 11/13/2019 10:27 AM CDT ([facility] and [facility] locations only: If the patient is not having symptoms and is requesting COVID-19 Nasal Swab testing only, use the process listed in the COVID-19 Patient Requesting COVID PCR Test OTG COVID-19 [place] Patient Requesting COVID PCR Test). 1. Do [...] last 14 days? no Route reply to: [facility] scheduling Scheduling Contact Number: [phone] documented in this encounter Plan of Treatment Not on filedocumented as of this encounter Visit Diagnoses Not on filedocumented in this encounter Care Teams Paunch Trimmer Relationship Specialty Start Date End Date Lexus Fowler M.D., M.P.H. PCP - General 11/14/18 11/13/21 [address] [place] [phone] documented as of this encounter
--- OUTSIDE RECORDS SUMMARY | 2022-02-17 10:28 | XMS_ITS | Encounter Summary ---
:1940 Author Organization [facility] Address [address] [place] [address] Care Team Providers Name Role Phone Lexus Fowler M.D., M.P.H. Primary Care Provider [phone] Reason for Referral Outpatient (Routine) - Closed Specialty Diagnoses / Procedures Referred By Contact Refer red To Contact Vascular Medicine Sherry Slater APRN, [place] C.NYandy, M.S.N. [address] [place] [phone] Referral ID Status Reason Start Date Expiration Date Visits Requ ested Visits Authorized [id number] Closed 01/15/2020 01/14/2021 1 1 utpatient (Routine) - Closed Specialty Diagnoses / Procedures Referred By Contact Refer red To Contact Vascular Medicine Sherry Slater APRN, [place] C.N.PClarence, M.S.N. 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 [address] [place] [address] Referral ID Status Reason Start Date Expiration Date Visits Requ ested Visits Authorized [id number] Closed 12/04/2019 12/03/2020 1 1 Encounter Details Date Type Department Care Team Description 01/15/2020 Office Visit Department of Vascular Sherry Slater, Diabetes Mellitus 2 Ulcer Toe (HCC) (Primary Dx); Medicine in [place], Kei LOWRY, Diab etes Mellitus Type 2 With Diabetic Neuropathy (HCC); [place] M.S.N. Diabetes Mellitus Type 2 (HCC) [address] [place] [phone] Social History Tobacco Use Types Packs/Day Years [...] How often do you attend mandaeism or temple services? Patien t refused 10/29/2020 Do you [...] through 14 - You may wear shoes part time receptionist in your house only. Beyond day 14 - If no problems have developed, you may begin wearing them outside the house. If you have any wound care questions or concerns please contact the Vascular Center at [phone]. If you need to cancel, reschedule, or schedule a wound care appointment please call [phone]. Provider Signature Sherry Slater APRN, C.N.P., M.S.N. documented in this encounter Progress Notes Sherry Slater APRN, C.N.P., M.S.N. - 01/15/2020 9:00 AM CDT REFERRAL SOURCE Bette Juarez APRN, C.N.P., M.S.N. [address] [place] [address] SUBJECTIVE CHIEF COMPLAINT / REASON FOR VISIT [...] that he recently ordered diabetic shoes/insert through [facility]. The shoes should be coming in shortly. He reports he consistently built up callous on the toe. Well living in [place], he had been seen podiatry for cares. [...] six weeks. He will be leaving for [place] mid to late February. He notes that he will be seen with a local window cleaner there who also does wound cares. He [...] sharp debridement under 20 cm performed by MEDICAL FEE CLERK. Billing does not reflect debridement time. Sherry Slater APRN, C.N.P., M.S.N. documented in this encounter Plan of Treatment Scheduled Referrals Name Type Priority Associated Diagnoses Order S [facility] Vascular Medicine Outpatient Referral Routine Exp ected: [...] (HCC) documented in this encounter Care Teams Can Reconditioner Relationship Specialty Start Date End Date Lexus Folwer M.D., M.P.H. PCP - General 11/14/18 11/13/21 [address] [place] [address] documented as of this encounter
--- OUTSIDE RECORDS SUMMARY | 2022-02-17 10:28 | XMS_ITS | Encounter Summary ---
:1940 Author Organization [facility] Address [address] [place] [address] Care Team Providers Name Role Phone Lexus Fowler M.D., M.P.H. Primary Care Provider [phone] Encounter Details Date Type Department Care Team Description 10/03/2019 Clinical Communication Department of [facility] Duarte Veliz, Medicine, [facility] PROJECT SCHEDULER, C.N. P. [facility], in [address] [place] [address] 411 [facility] [address] [place] [address] [phone] Social History Tobacco Use Types Packs/Day Years [...] How often do you attend latter-day or anabaptism services? Patien t refused 10/29/2020 Do you belong to any clubs or organizations such as Not aske d latter-day groups, unions, fraternal or athletic groups, [...] on filedocumented in this encounter Care Teams Pharmacology Associate Relationship Specialty Start Date End Date Lexus Fowler M.D., M.P.H. PCP - General 11/14/18 11/13/21 [address] [place] [address] documented as of this encounter
--- OUTSIDE RECORDS SUMMARY | 2022-02-17 10:28 | XMS_ITS | Encounter Summary ---
:1940 Author Organization [facility] Address [address] [place] [address] Care Team Providers Name Role Phone Lexus Fowler M.D., M.P.H. 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 How often do you attend jew or gnosticist services? Patien t refused 10/29/2020 Do you belong to any clubs or organizations such as Nabil borrero jew groups, unions, fraternal or athletic groups, or [...] through 14 - You may wear shoes coffee shop manager in your house only. Beyond day 14 - If no problems have developed, you may begin wearing them outside the house. If you have any wound care questions or concerns please contact the Vascular Center at [phone]. If you need to cancel, reschedule, or schedule a wound care appointment please call [phone]. Provider Signature Bette Juarez APRN, C.N.P., M.S.N. documented in this encounter Progress Notes Bette Juarez APRN, C.N.P., M.S.N. - 12/04/2019 9:00 AM CDT REFERRAL SOURCE Bette Juarez APRN, C.N.P., M.S.N. [address] [place] [phone] SUBJECTIVE CHIEF COMPLAINT / REASON FOR VISIT Re-evaluation of right distal 1st toe ulcer. [facility] HISTORY OF PRESENT [...] of an infection. He has modified an [id number] pair of shoes as the Darco shoes [...] Name Type Priority Associated Diagnoses Order S [facility] Vascular Medicine Outpatient Referral Routine Diabetes [...] Right documented in this encounter Care Teams Thread Winder Relationship Specialty Start Date End Date Lexus Fowler M.D., M.P.H. PCP - General 11/14/18 11/13/21 [address] [place] [address] documented as of this encounter
--- OUTSIDE RECORDS SUMMARY | 2022-02-17 10:28 | XMS_ITS | Encounter Summary ---
:1940 Author Organization [facility] Address [address] [place] [address] Care Team Providers Name Role Phone Lexus Fowler M.D., M.P.H. Primary Care Provider [phone] Reason for Visit Reason Comments COVID Inquiry Encounter Details Date Type Department Care Team Description 11/16/2019 Clinical Communication Department of Lexus Fowler Family MedicineMaikol M.D., M.P.H. [facility] [address] [facility] [address] 411 [facility] [phone] [place], [place] (Work) [address] [phone] Social History Tobacco Use Types Packs/Day Years [...] How often do you attend taoism or mosque services? Patien t refused 10/29/2020 [...] - 11/16/2019 8:42 AM CDT ([facility] and [place] [facility] locations only: If the patient is not having symptoms and is requesting COVID-19 Nasal Swab testing only, use the process listed in the COVID-19 Patient Requesting COVID PCR Test OTG COVID-19 [place] Patient Requesting COVID PCR Test). In the past 30 days have you had a swab for COVID that tested positive? no Route reply to: [facility] Scheduling Scheduling Contact Number: [phone] documented in this encounter Plan of Treatment Not on filedocumented as of this encounter Visit Diagnoses Not on filedocumented in this encounter Care Teams Mine Safety Manager Relationship Specialty Start Date End Date Lexus Fowler M.D., M.P.H. PCP - General 11/14/18 11/13/[address] [place] [address] documented as of this encounter
--- OUTSIDE RECORDS SUMMARY | 2022-02-17 10:28 | XMS_ITS | Encounter Summary ---
:1940 Author Organization [facility] Address [address] [place] [address] Care Team Providers Name Role Phone Lexus Fowler M.D., M.P.H. 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 ALEN, C.N.P. 200 [place] [address] Referral ID Status Reason Start Date Expiration Date Visits Requ ested Visits Authorized [id number] Closed 11/15/2019 11/14/2020 1 1 Reason for Visit Outpatient (Routine) - Closed Specialty Diagnoses / Procedures Referred By Contact Refer red To Contact Orthopedic Surgery Roslyn Veliz APRN, [facility] C.N.P. [address] [place] [address] Referral ID Status Reason Start Date Expiration Date Visits Requ ested Visits Authorized [id number] Closed 10/02/2019 10/01/2020 1 1 Encounter Details Date Type Department Care Team Description 11/15/2019 Procedure visit Department of Belkis Richter Onychomy cosis (Primary Dx); Orthopedic Surgery ALEN Lozano, C.N.P. [place] Foot; in [place], Dystrophic Toe nail; [place] Diabetes Mellitus Type 2 Wit h Diabetic Polyneuropathy (HCC); [address] Diabetes Mellitus 2 Ulcer To e (HCC) [place] [address] Social History Tobacco Use Types Packs/Day Years [...] 10/29/2020 relatives? How often do you attend protestant or muslim services? Patien t refused 10/29/2020 Do you belong to any clubs or organizations such as Nabil borrero protestant groups, unions, fraternal or athletic groups, or [...] Dr. Lexus Fowler and Dr. Raul Dunlap ([facility]) September 28, 2019 for active care [...] Name Type Priority Associated Diagnoses Order S [facility] Orthopedic Surgery Outpatient Referral Routine Onychomyc osis Expected: office visit Call[place] Foot 01/16/2020 (clinic) Dystrophic [place] (Approximate), Diabetes Mellitus Type Expir es: 2 With Diabetic 11/14/2022 Polyneuropathy ( HCC) Diabetes Mellitus 2 Ulcer Toe (HCC) documented as of this encounter Visit Diagnoses Diagnosis Onychomycosis - Primary Callus [place] Foot Dystrophic Toenail Diabetes Mellitus Type 2 With Diabetic P olyneuropathy (HCC) Diabetes Mellitus 2 Ulcer Toe (HCC) documented in this encounter Care Teams Ssn/Ssbn Weapons Equipment Operator Relationship Specialty Start Date End Date Lexus Fowler M.D., M.P.H. PCP - General 11/14/18 11/13/21 [address] [place] [address] documented as of this encounter
--- OUTSIDE RECORDS SUMMARY | 2022-02-17 10:28 | XMS_ITS | Encounter Summary ---
:1940 Author Organization [facility] Address [address] [place] [address] Care Team Providers Name Role Phone Lexus Fowler M.D., M.P.H. Primary Care Provider [phone] Reason for Visit Reason Comments Communication Dr. Lexus Fowler Encounter Details Date Type Department Care Team Description 12/25/2019 Clinical Department of Lexus Fowler (Dr. Hampton Family MedicineMaikol M.D., M.P.H. Lexus Fowler ) [facility] [address] [facility] in [place], [place] [address] 411 [facility] [phone] [place], [place] (Work) [address] Social History Tobacco Use [...] How often do you attend baptist or congregation services? Patien t refused 10/29/2020 [...] sent. He did state that he used [facility] in [place] for his shoes. He will contact [facility] in [place] to resend the needed paperwork. While on the phone, that patient also asked why he was needing to get the Hep B vaccine series. The patient stated, no one else I know is having to get one. After reading the [facility] vaccine schedule, the patient believes it might [...] CDT Caller: Vinayak Vazquez Relationship to Patient: [phone] Callback Number: [phone] Pharmacy: [facility] Request/Details: Pt called to check on status of Rx for diabetic shoes sent from pharmacy. Pt wants to know if AUTH or signature completed by PCP & sent back. Please advise, pt wants to grain picker Rx from pharmacy tomorrow. Thank you. documented in this encounter Plan of Treatment Not on filedocumented as of this encounter Visit Diagnoses Not on filedocumented in this encounter Care Teams Semiconductor Packages Platemaker Relationship Specialty Start Date End Date Lexus Fowler M.D., M.P.H. PCP - General 11/14/18 11/13/21 [address] [place] [address] documented as of this encounter
--- OUTSIDE RECORDS SUMMARY | 2022-02-17 10:28 | XMS_ITS | Encounter Summary ---
:1940 Author Organization [facility] Address [address] [place] [address] Care Team Providers Name Role Phone Lexus Fowler M.D., M.P.H. Primary Care Provider [phone] Reason for Visit Reason Comments ALETHEA Nurse Line Encounter Details Date Type Department Care Team Description 01/16/2020 Clinical Communication Department of Lexus Fowler Nurse Line Family MedicineMaikol M.D., M.P.H. [facility] [address] [facility] [address] [address] [facility] [phone] [place], [place] (Work) [phone] Social History Tobacco Use Types Packs/Day Years [...] How often do you attend orthodox or yazidism services? Patien t refused 10/29/2020 Do you [...] - 01/16/2020 9:02 AM CDT ([facility] and [facility] locations only: If the patient is not having symptoms and is requesting COVID-19 Nasal Swab testing only, use the process listed in the COVID-19 Patient Requesting COVID PCR Test OTG COVID-19 [place] Patient Requesting COVID PCR Test). In the past 30 days have you had a swab for COVID that tested positive? no Route reply to: Please respond to [facility] BLOOD Scheduling pool if necessary Scheduling Contact Number: [phone] documented in this encounter Plan of Treatment Not on filedocumented as of this encounter Visit Diagnoses Not on filedocumented in this encounter Care Teams Appraiser Auditor Relationship Specialty Start Date End Date Lexus Fowler M.D., M.P.H. PCP - General 11/14/18 11/13/21 [address] [place] [address] documented as of this encounter
--- OUTSIDE RECORDS SUMMARY | 2022-02-17 10:28 | XMS_ITS | Encounter Summary ---
:1940 Author Organization [facility] Address [address] [place] [address] Care Team Providers Name Role Phone Lexus Fowler M.D., M.P.H. Primary Care Provider [phone] Encounter Details Date Type Department Care Team [...] How often do you attend congregational or judaism services? Patien t refused 10/29/2020 [...] on filedocumented in this encounter Care Teams Siebel Consultant Relationship Specialty Start Date End Date Lexus Fowler M.D., M.P.H. PCP - General 11/14/18 11/13/21 [address] [place] [address] documented as of this encounter
--- OUTSIDE RECORDS SUMMARY | 2022-02-17 10:28 | XMS_ITS | Encounter Summary ---
:1940 Author Organization [facility] Address [address] [place] [address] Care Team Providers Name Role Phone Lexus Fowler M.D., M.P.H. Primary Care Provider [phone] Encounter Details Date Type Department Care Team Description 10/05/2019 Clinical Communication Department of [facility] Marlen Fowler, [facility], Estiven Gupta, M.P.H. [facility] [address] [place] [address] [place] [address] [place] [address] Social History Tobacco Use Types [...] 10/29/2020 relatives? How often do you attend caodaism or sabianist services? Patien t refused 10/29/2020 Do you belong to any clubs or organizations such as Not aske d caodaism groups, unions, fraternal or athletic groups, or [...] to: CHRISTOPHER SOLIS SCHEDULING Scheduling Contact Number: [phone] documented in this encounter Plan of Treatment Not on filedocumented as of this encounter Visit Diagnoses Not on filedocumented in this encounter Care Teams Dry Wall Applicator Relationship Specialty Start Date End Date Lexus Fowler M.D., M.P.H. PCP - General 11/14/18 11/13/21 [address] [place] [address] documented as of this encounter
--- OUTSIDE RECORDS SUMMARY | 2022-02-17 10:28 | XMS_ITS | Encounter Summary ---
:1940 Author Organization [facility] Address [address] [place] [address] Care Team Providers Name Role Phone Lexus Fowler M.D., M.P.H. Primary Care Provider [phone] Encounter Details Date Type Department Care Team Description 10/06/2019 Hospital Encounter Department of Emelyn Diamond es Mellitus 2 Laboratory Medicine D, ANALYTICAL DATA SCIENTIST, Ulcer To e (HCC) and Pathology, C.N.P., D.N.P. [facility], in [address] [place] [address] [place] [address] [place], [place] [phone] [address] (Work) [phone] Social History Tobacco Use Types Packs/Day Years [...] How often do you attend voodoo or jainism services? Patien t refused 10/29/2020 [...] D.N.P. LAB BLOOD ADD-ON Performing Organization Address City/[facility] Phon e Number [facility] - 200 [place], [place] [address] [facility] [place] [address] CBC without Differential (10/06/2019 10:54 AM [...] D.N.P. LAB BLOOD ADD-ON Performing Organization Address City/[facility] Phon e Number [facility] - 200 [place], [place] [address] [facility] [place] [address] documented in this encounter Visit Diagnoses Diagnosis Diabetes Mellitus 2 Ulcer Toe (HCC) documented in this encounter Care Teams Administrative Assistant Data Entry Relationship Specialty Start Date End Date Lexus Fowler M.D., M.P.H. PCP - General 11/14/18 11/13/[address] [place] [address] documented as of this encounter
--- OUTSIDE RECORDS SUMMARY | 2022-02-17 10:28 | XMS_ITS | Encounter Summary ---
:1940 Author Organization [facility] Address [address] [place] [address] Care Team Providers Name Role Phone Lexus Fowler M.D., M.P.H. Primary Care Provider [phone] Encounter Details Date Type Department Care Team [...] How often do you attend holiness or hindu services? Patien t refused 10/29/2020 [...] on filedocumented in this encounter Care Teams Nurse Emergency Relationship Specialty Start Date End Date Lexus Fowler M.D., M.P.H. PCP - General 11/14/18 11/13/21 [address] [place] [address] documented as of this encounter
--- OUTSIDE RECORDS SUMMARY | 2022-02-17 10:28 | XMS_ITS | Encounter Summary ---
:1939 Author Organization [facility] Address [address] [place] [address] Care Team Providers Name Role Phone Lexus Fowler M.D., M.P.H. Primary Care Provider [phone] Encounter Details Date Type Department Care Team [...] How often do you attend episcopal or zoroastrianism services? Patien t refused 10/29/2020 [...] on filedocumented in this encounter Care Teams Digital Developer Relationship Specialty Start Date End Date Lexus Fowler M.D., M.P.H. PCP - General 11/14/18 11/13/21 [address] [place] [address] documented as of this encounter
--- OUTSIDE RECORDS SUMMARY | 2022-02-17 10:28 | XMS_ITS | Encounter Summary ---
:1939 Author Organization [facility] Address [address] [place] [address] Care Team Providers Name Role Phone Lexus Fowler M.D., M.P.H. Primary Care Provider [phone] Reason for Visit Reason Comments Med Refill Encounter Details Date Type Department Care Team Description 01/14/2020 Refill Department of Family Medicine, Enedelia Tafoya M.D. Med Refill [place], [place] [address] [place] [address] [address] [facility] [place] [place] [address] [phone] Social History Tobacco Use Types Packs/Day Years [...] 10/29/2020 relatives? How often do you attend bahai or latter-day services? Patien t refused 10/29/2020 Do you belong to any clubs or organizations such as Nabil borrero bahai groups, unions, fraternal or athletic groups, or [...] Primary documented in this encounter Care Teams Marine Electrician Helper Relationship Specialty Start Date End Date Lexus Fowler M.D., M.P.H. PCP - General 11/14/18 11/13/21 [address] [place] [address] documented as of this encounter
--- OUTSIDE RECORDS SUMMARY | 2022-02-17 10:28 | XMS_ITS | Encounter Summary ---
:1939 Author Organization [facility] Address [address] [place] [address] Care Team Providers Name Role Phone Lexus Fowler M.D., M.P.H. Primary Care Provider [phone] Encounter Details Date Type Department Care Team [...] How often do you attend yarsani or protestant services? Patien t refused 10/29/2020 [...] on filedocumented in this encounter Care Teams Barrel Cooper Relationship Specialty Start Date End Date Lexus Fowler M.D., M.P.H. PCP - General 11/14/18 11/13/21 [address] [place] [address] documented as of this encounter
--- OUTSIDE RECORDS SUMMARY | 2022-02-17 10:28 | XMS_ITS | Encounter Summary ---
:1940 Author Organization [facility] Address [address] [place] [address] Care Team Providers Name Role Phone Lexus Fowler M.D., M.P.H. Primary Care Provider Reason for Referral Outpatient (Routine) - Closed Specialty Diagnoses / Procedures Referred By Contact Refer red To Contact Diagnoses Cyst Sebaceous Inflamed Med Duff M.D., [facility] Procedures Incision and Drainage J.D. [address] [place] [phone] Referral ID Status Reason Start Date Expiration Date Visits Requ ested Visits Authorized [id number] Closed 01/18/2020 01/17/2021 1 1 Reason for Visit Reason Comments Other boils Appointment Request (Routine) - Closed Specialty Diagnoses / Procedures Referred By Contact Refer red To Contact [facility] Referral ID Status Reason Start Date Expiration Date Visits Requ ested Visits Authorized [id number] Closed 01/17/2020 01/16/2021 1 1 Encounter Details Date Type Department Care Team Description 01/18/2020 Office Visit Department of Med [facility] Sebaceous Medicine, [facility] Evie Gupta Inflamed (Primary Dx) [facility], or [address] [place], [place] [address] [facility] [address] [place] [address] [phone] Social History Tobacco Use Types Packs/Day Years [...] How often do you attend yazidi or episcopalian services? Patien t refused 10/29/2020 [...] dose documented in this encounter Care Teams Permastone Applicator Relationship Specialty Start Date End Date Lexus Fowler M.D., M.P.H. PCP - General 11/14/18 11/13/21 [address] [place] [address] documented as of this encounter
--- OUTSIDE RECORDS SUMMARY | 2022-02-17 10:28 | XMS_ITS | Encounter Summary ---
:[address] [facility] Address [address] [place] [address] Care Team Providers Name Role Phone Lexus Fowler M.D., M.P.H. Primary Care Provider [phone] Reason for Visit Reason Comments Immunizations Outpatient (Routine) - Closed Specialty Diagnoses / Procedures Referred By Contact Refer red To Contact Lexus Fowler M.D., M.P.H. [facility] [address] [place] [phone] Referral ID Status Reason Start Date Expiration Date Visits Requ ested Visits Authorized [id number] Closed 09/28/2019 09/27/2020 1 1 Encounter Details Date Type Department Care Team Description 12/26/2019 Nurse Only Department of [facility] Lu Fowler M.D., M.P.H. [address] [place] [phone] Immunizations Medicine, [facility] Wily Fernández, L.P.N. [address] [place] [phone] [place], [place] [address] [place] [address] Social History Tobacco Use Types Packs/Day Years [...] How often do you attend sikhism or jain services? Patien t refused 10/29/2020 [...] Primary documented in this encounter Care Teams Low Pressure Kettle Operator Relationship Specialty Start Date End Date Lexus Fowler M.D., M.P.H. PCP - General 11/14/18 11/13/21 [address] [place] [address] documented as of this encounter
--- OUTSIDE RECORDS SUMMARY | 2022-02-17 10:28 | XMS_ITS | Encounter Summary ---
:1940 Author Organization [facility] Address [address] [place] [address] Care Team Providers Name Role Phone Lexus Fowler M.D., M.P.H. Primary Care Provider [phone] Reason for Referral MRI/CAT/PET Scan (Routine) - Closed Specialty Diagnoses / Procedures Referred By Contact Refer red To Contact Radiology Diagnoses Diabetes Mellitus 2 Ulcer Toe (HCC) [facility] Procedures [facility] Foot Right without IV Contrast C.N.P., D.N.P. [address] [place] [phone] Referral ID Status Reason Start Date Expiration Date Visits Requ ested Visits Authorized [id number] Closed 10/06/2019 10/05/2020 1 1 Reason for Visit MRI/CAT/PET Scan (Routine) - Closed Specialty Diagnoses / Procedures Referred By Contact Refer red To Contact Radiology Diagnoses Diabetes Mellitus 2 Ulcer Toe (HCC) [facility] Procedures MR Foot Right without IV Contrast C.N.P., D.N.P. [address] [place] [phone] Referral ID Status Reason Start Date Expiration Date Visits Requ ested Visits Authorized [id number] Closed 10/06/2019 10/05/2020 1 1 Encounter Details Date Type Department Care Team Description 10/10/2019 Hospital Encounter Department of Lobo, Emelyn Diabet es Mellitus 2 Radiology, Viraj D, RELIGIOUS EDUCATION DIRECTOR, Ulcer Toe ( HCC) Building, in C.N.P., D.N.P. [place], [place] 200 [facility] 200 [place] [phone] Social History Tobacco Use Types Packs/Day Years [...] How often do you attend spiritism or restorationist services? Patien t refused 10/29/2020 [...] (two) With Diabetic Neuropathy times a day. ([facility]) Terrafugia ULTRA BLUE TEST daily. for 3 01/07/2018 [...] (HCC) documented in this encounter Care Teams Lip Cutter Relationship Specialty Start Date End Date Lexus Fowler M.D., M.P.H. PCP - General 11/14/18 11/13/21 [address] [place] [address] documented as of this encounter
--- OUTSIDE RECORDS SUMMARY | 2022-02-17 10:29 | XMS_ITS | Encounter Summary ---
:1940 Author Organization [facility] Address [address] [place] [address] Care Team Providers Name Role Phone Lexus Fowler M.D., M.P.H. Primary Care Provider [phone] Reason for Visit Reason Comments Appointment Encounter Details Date Type Department Care Team Description 09/25/2019 Clinical Communication Department of [facility] Marlen Fowler, Appointment Medicine, Estiven Gupta, M.P.H. [facility] [address] [place] [phone] 411 [facility] [place] [address] Social History Tobacco Use Types [...] How often do you attend holiness or mormonism services? Patien t refused 10/29/2020 Do you belong to any clubs or organizations such as Not jelani d holiness groups, unions, fraternal or athletic groups, [...] CDT Caller: Vinayak Relationship to Patient:Self Callback Number:[phone] Pharmacy:NA Request/Details:Calling today stating he thinks he [...] on filedocumented in this encounter Care Teams Rn Interventional Relationship Specialty Start Date End Date Lexus Fowler M.D., M.P.H. PCP - General 11/14/18 11/13/21 [address] [place] [address] documented as of this encounter
--- OUTSIDE RECORDS SUMMARY | 2022-02-17 10:29 | XMS_ITS | Encounter Summary ---
:1940 Author Organization [facility] Address [address] [place] [address] Care Team Providers Name Role Phone Lexus Fowler M.D., M.P.H. Primary Care Provider [phone] Reason for Visit Reason Comments Diabetes Outpatient (Routine) - Closed Specialty Diagnoses / Procedures Referred By Contact Refer red To Contact Family Medicine Kristal Galeana M.D. 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 Hypertension Essential Primary; Family Clinic [address] [place] [address] Hyperlipidemia; brandon Hernandez [facility] [address] [address] [facility] [place] [place] [address] Social History Tobacco Use Types [...] 10/29/2020 relatives? How often do you attend orthodoxy or restorationist services? Patien t refused 10/29/2020 Do you belong to any clubs or organizations such as Nabil borrero orthodoxy groups, unions, fraternal or athletic groups, or [...] at that time. He is leaving for [facility] for the winter tomorrow, and would like [...] No guarding or rebound tenderness. Nohepatosplenomegaly. Skin: [place] and well perfused ASSESSMENT / PLAN #1 [...] 6 months time when he returns from [place]. We will work on ensuring that his [...] 6 months time when he returns from [place]. We will work on ensuring that his blood pressure is within goal range at that time. documented in this encounter Plan of Treatment Not on filedocumented as of this encounter Results (ABNORMAL) Creatinine with Estimated GFR (03/10/2019 10:44 AM CDT) P athologist Signature Creatinine 1.25 0.74 - 03/10/2019 [facility] 1.35 mg/dL 11:18 AM CDT eGFR-Black/Afric 63 >=60 03/10/2019 [facility] an Zimbabwean mL/min/BSA 11:18 AM CDT Comment: ----ADDITIONAL INFORMATION---- Estimated GFR calculated using the 2009 CKD_EPI creatinine equation. eGFR Non-Black/ 54 (L) >=60 mL/min/BSA 03/10/2019 11:18 AM CDT [facility] Zimbabwean Comment: ----ADDITIONAL INFORMATION---- Estimated GFR calculated using the 2009 CKD_EPI creatinine equation. Specimen Anatomical Collection Method Collection Time Receive d Time (Source) Location / / Volume Laterality Blood (Blood, 03/10/2019 10:44 03/10/2019 Venous) AM CDT 10:44 AM CDT Lexus Fowler M.D., M.P.H. LAB BLOOD ADD-ON Performing Organization Address City/[facility]/ZIP Code Phon e Number [address] [address] [place], [place] [address] [place] [address] Sodium (03/10/2019 10:44 AM CDT) P athologist Signature Sodium, P 139 135 - 145 03/10/2019 [facility] mmol/L 11:18 AM CDT Specimen Anatomical Collection Method Collection Time Receive d Time (Source) Location / / Volume Laterality Blood (Blood, 03/10/2019 10:44 03/10/2019 Venous) AM CDT 10:44 AM CDT Lexus Fowler M.D., M.P.H. LAB BLOOD ADD-ON Performing Organization Address City/[facility]/ZIP Code Phon e Number [address] [address] [place] [address] [place] [address] Potassium (03/10/2019 10:44 AM CDT) P athologist Signature Potassium, P 4.8 3.6 - 5.2 03/10/2019 [facility] mmol/L 11:18 AM CDT Specimen Anatomical Collection Method Collection Time Receive d Time (Source) Location / / Volume Laterality Blood (Blood, 03/10/2019 10:44 03/10/2019 Venous) AM CDT 10:44 AM CDT Lexus Fowler M.D., M.P.H. 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 PCP - General 11/14/18 11/13/21 [address] [place] [address] documented as of this encounter
--- OUTSIDE RECORDS SUMMARY | 2022-02-17 10:29 | XMS_ITS | Encounter Summary ---
:1940 Author Organization [facility] Address [address] [place] [address] Care Team Providers Name Role Phone Lexus Fowler M.D., M.P.H. Primary Care Provider [phone] Reason for Visit Reason Comments COVID Inquiry Encounter Details Date Type Department Care Team Description 09/27/2019 Clinical Communication Department of Lexus Fowler Family MedicineMaikol M.D., M.P.H. [facility] [address] [facility] [address] [address] [facility] [phone] [place], [place] (Work) [address] [phone] Social History Tobacco Use Types Packs/Day Years [...] How often do you attend moravian or sabianist services? Patien t refused 10/29/2020 [...] on filedocumented in this encounter Care Teams Sales Support Coordinator Relationship Specialty Start Date End Date Lexus Fowler M.D., M.P.H. PCP - General 11/14/18 11/13/21 [address] [place] [address] documented as of this encounter
--- OUTSIDE RECORDS SUMMARY | 2022-02-17 10:29 | XMS_ITS | Encounter Summary ---
:1940 Author Organization [facility] Address [address] [place] [address] Care Team Providers Name Role Phone Lexus Fowler M.D., M.P.H. Primary Care Provider Reason for Referral Outpatient (Routine) - Closed Specialty Diagnoses / Procedures Referred By Contact Refer red To Contact Family Medicine Lexus Fowler M.D., [facility] M.P.H. [address] [place] [phone] Referral ID Status Reason Start Date Expiration Date Visits Requ ested Visits Authorized [id number] Closed 09/25/2019 09/24/2020 1 1 Encounter Details Date Type Department Care Team Description 09/25/2019 Orders Only Department of [facility] Lexus Fowler, Diabetes Mellitus Medicine, [facility] Alonso, M.P. H. Type 2 With Diabetic Clinic [place], [place] [address] [place] [address] Neuropathy (HCC) [place], [place] (Primary Dx) [address] [facility] [address] [place] [address] [phone] Social History Tobacco Use Types Packs/Day Years [...] How often do you attend jainism or islam services? Patien t refused 10/29/2020 Do you belong to any clubs or organizations such as Nabil borrero jainism groups, unions, fraSnapTell or athletic groups, or school groups? How [...] Name Type Priority Associated Diagnoses Order S [facility] Medicine Outpatient Referral Routine Expec margoth: office [...] City/State/ZIP Code Phon e Number 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 PCP - General 11/14/18 11/13/[address] [place] [address] documented as of this encounter
--- OUTSIDE RECORDS SUMMARY | 2022-02-17 10:29 | XMS_ITS | Encounter Summary ---
:1940 Author Organization [facility] Address [address] [place] [address] Care Team Providers Name Role Phone Lexus Fowler M.D., M.P.H. Primary Care Provider [phone] Reason for Referral Outpatient (Routine) - Closed Specialty Diagnoses / Procedures Referred By Contact Refer red To Contact Orthopedic Surgery Roslyn Veliz APRN, [place] [facility] C.N.P. [address] [place] [phone] Referral ID Status Reason Start Date Expiration Date Visits Requ ested Visits Authorized [id number] Closed 10/02/2019 10/01/2020 1 1 Outpatient (Routine) - Closed Specialty Diagnoses / Procedures Referred By Contact Refer red To Contact Vascular Medicine Diagnoses Diabetes Mellitus 2 Ulcer Toe (HCC) Roslyn Veliz APRN, [place] [facility] C.N.P. 200 [place] [address] Referral ID Status Reason Start Date Expiration Date Visits Requ ested Visits Authorized [id number] Closed 10/02/2019 10/01/2020 1 1 Reason for Visit Outpatient (Routine) - Closed Specialty Diagnoses / Procedures Referred By Contact Refer red To Contact Orthopedic Surgery Roslyn Veliz APRN, [facility] [facility] C.N.P. 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 Elizabeth t refused 10/29/2020 Do you [...] PRESENT ILLNESS Mr. 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 The patient wears New Balance shoes with molded inserts. He states that he getsthese insert from a place out town and that Medicare covers the cost. [facility] During his visit with [...] month. On 07/10/19, he was seen the [facility] in [place] for a infected right great toe callus [...] peripheral neuropathy: [facility] OBJECTIVE PHYSICAL EXAM General: [...] Skin temperature changes: Bilateral feet are warm [place]/calluses: Hyperkeratotic buildup over the right hallux plantar [...] 2 With Diabetic N europathy (HCC) Callus [place] Diabetes Mellitus 2 Ulcer Toe (HCC) documented in this encounter Care Teams Manager Union Relationship Specialty Start Date End Date Lexus Fowler M.D., M.P.H. PCP - General 11/14/18 11/13/[address] [place] [address] documented as of this encounter
--- OUTSIDE RECORDS SUMMARY | 2022-02-17 10:29 | XMS_ITS | Encounter Summary ---
:1940 Author Organization [facility] Address [address] [place] [address] Care Team Providers Name Role Phone Lexus Fowler M.D., M.P.H. Primary Care Provider Encounter Details Date Type Department Care Team Description 03/20/2019 Clinical Communication Department of [facility], [facility] Alonso [place], [place] [address] [place] [address] 411 [facility] [phone] [place] [address] (Work) [phone] Social History Tobacco Use Types Packs/Day Years [...] How often do you attend restoration or nondenominational services? Patien t refused 10/29/2020 [...] Vijaya Vargas L.P.N. - 03/20/2019 4:15 PM PHYTOPATHOLOGY TEACHER ----- Message from Enedelia Tapia M.D. sent at 03/20/2019 4:09 PM PHYTOPATHOLOGY TEACHER ----- Please clarify what medication and use a prescription refill encounter so I can access it. ----- Message ----- From: Vijaya Vargas L.P.N. Sent: 03/17/2019 4:35 PM PHYTOPATHOLOGY TEACHER To: Enedelia Tapia M.D. Pended Rx for you to review. Patient states that pharmacy did not receive order sent on 03/10. Please advise. OPATHOLOGY TEACHER documented in this encounter Plan of Treatment Not on filedocumented as of this encounter Visit Diagnoses Not on filedocumented in this encounter Care Teams Manager Of Program Relationship Specialty Start Date End Date Lexus Fowler M.D., M.P.H. PCP - General 11/14/18 11/13/21 [address] [place] [address] documented as of this encounter
--- OUTSIDE RECORDS SUMMARY | 2022-02-17 10:29 | XMS_ITS | Encounter Summary ---
:1940 Author Organization [facility] Address [address] [place] [address] Care Team Providers Name Role Phone Lexus Fowler M.D., M.P.H. Primary Care Provider [phone] Reason for Visit Reason Comments COVID Nurse Line Encounter Details Date Type Department Care Team Description 09/30/2019 Clinical Communication Department of Roslyn Veliz CO VID Nurse Line Orthopedic Surgery BEATER LEAD, C.N.P. in [place], [facility] [address] [place], [place] [address] [place] [address] [place], [place] [phone] (Work) [phone] Social History Tobacco Use Types Packs/Day Years [...] How often do you attend taoism or bahai services? Patien t refused 10/29/2020 Do you belong to any clubs or organizations such as Not aske d taoism groups, unions, fraternal or athletic groups, [...] on filedocumented in this encounter Care Teams Product Marketing Engineer Relationship Specialty Start Date End Date Lexus Fowler M.D., M.P.H. PCP - General 11/14/18 11/13/21 [address] [place] [address] documented as of this encounter
--- OUTSIDE RECORDS SUMMARY | 2022-02-17 10:29 | XMS_ITS | Encounter Summary ---
:1939 Author Organization [facility] Address [address] [place] [address] Care Team Providers Name Role Phone Lexus Fowler M.D., M.P.H. Primary Care Provider [phone] Encounter Details Date Type Department Care Team [...] How often do you attend worship or druze services? Patien t refused 10/29/2020 Do you [...] on filedocumented in this encounter Care Teams Relations Coordinator Relationship Specialty Start Date End Date Lexus Fowler M.D., M.P.H. PCP - General 11/14/18 11/13/21 [address] [place] [address] documented as of this encounter
--- OUTSIDE RECORDS SUMMARY | 2022-02-17 10:29 | XMS_ITS | Encounter Summary ---
:1940 Author Organization [facility] Address [address] [place] [address] Care Team Providers Name Role Phone Lexus Fowler M.D., M.P.H. Primary Care Provider [phone] Reason for Referral Outpatient (Routine) - Closed Specialty Diagnoses / Procedures Referred By Contact Refer red To Contact Lexus Fowler M.D., M.P.H. [facility] [address] [place] [phone] Referral ID Status Reason Start Date Expiration Date Visits Requ ested Visits Authorized [id number] Closed 09/28/2019 09/27/2020 1 1 utpatient (Routine) - Closed Specialty Diagnoses / Procedures Referred By Contact Refer red To Contact Lexus Kern M.D.[facility] M.P.H. [address] [place] [phone] Referral ID Status Reason Start Date Expiration Date Visits Requ ested Visits Authorized [id number] Closed 09/28/2019 09/27/2020 1 1 Reason for Visit Reason Comments Diabetes Hypertension Outpatient (Routine) - Closed Specialty Diagnoses / Procedures Referred By Contact Refer red To Contact Lexus Kern M.D., [facility] M.P.H. [address] [place] [address] Referral ID Status Reason Start Date Expiration Date Visits Requ ested Visits Authorized [id number] Closed 09/25/2019 09/24/2020 1 1 Encounter Details Date Type Department Care Team Description 09/28/2019 Office Visit Department of Family Lexus Fowler, Diabetes Mellitus Type 2 With Diabetic Neuropathy (HCC) (Primary Dx); Medicine, Estiven Gupta, M.P.H. Hypertension Essential Primary Family Clinic [address] [facility] [address] [address] [facility] [place] [address] Social History Tobacco Use Types [...] How often do you attend adventism or confucianist services? Patien t refused 10/29/2020 [...] November, and hewill get this done in [place]. Denies numbness or tingling in his feet. Reports that he regularly sees a continuous mining machine coal miner, and infective seeing his normal continuous mining machine coal miner tomorrow, he typically sees her every month [...] auscultation bilaterally, no wheezing, crackles, rales Skin: [place] and well perfused ASSESSMENT / PLAN #1 [...] - Primary Care nurse visit (clinic) - [facility]; Immunization; Future; Expected date: 09/28/2019 Associated attestation [...] I encouraged him to continue these healthy [facility]. 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 PCP - General 11/14/18 11/13/[address] [place] [address] documented as of this encounter
--- OUTSIDE RECORDS SUMMARY | 2022-02-17 10:29 | XMS_ITS | Encounter Summary ---
:1940 Author Organization [facility] Address [address] [place] [address] Care Team Providers Name Role Phone Lexus Fowler M.D., M.P.H. Primary Care Provider [phone] Encounter Details Date Type Department Care Team Description 08/14/2019 Clinical Communication Department of Angi Ricks Orthopedic Surgery in [facility], C.N.P.[place], [place] D.N.P. [address] [place] [address] Social History Tobacco Use Types Packs/Day Years [...] How often do you attend protestant or druze services? Patien t refused 10/29/2020 [...] on filedocumented in this encounter Care Teams Therapy Technician Relationship Specialty Start Date End Date Lexus Fowler M.D., M.P.H. PCP - General 11/14/18 11/13/21 [address] [place] [address] documented as of this encounter
--- OUTSIDE RECORDS SUMMARY | 2022-02-17 10:29 | XMS_ITS | Encounter Summary ---
:1940 Author Organization [facility] Address [address] [place] [address] Care Team Providers Name Role Phone Lexus Fowler M.D., M.P.H. Primary Care Provider [phone] Reason for Referral Outpatient (Routine) - Closed Specialty Diagnoses / Procedures Referred By Contact Refer red To Contact Orthopedic Surgery Roslyn Veliz APRN, [place] C.N.PClarence [address] [place] [address] Referral ID Status Reason Start Date Expiration Date Visits Requ ested Visits Authorized [id number] Closed 08/16/2019 08/15/2020 1 1 Reason for Visit Outpatient (Routine) - Closed Specialty Diagnoses / Procedures Referred By Contact Refer red To Contact Orthopedic Surgery Adan Mosquera, [place] P.A.-C. 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 Dystrophic Toenail; in [address] Diabetes Mellitus Type 2 With Diabetic P olyneuropathy (HCC); [place], [place] Callus [place] [facility] [address] [place] [address] [place], [place] [phone] (Work) [phone] Social History Tobacco Use Types Packs/Day Years [...] 10/29/2020 relatives? How often do you attend rastafari or quaker services? Patien t refused 10/29/2020 Do you belong to any clubs or organizations such as Nabil borrero rastafari groups, unions, fraternal or athletic groups, or [...] documented as of this encounter Progress Notes Rsolyn Veliz, AL[place], C.N.P. - 08/16/2019 9:00 AM [...] cost. He has had custom inserts from [employer] in the past. A1C was 6.6 on 03/08/19. In May of this year, the patient had his callus pared states that a large chunk was removed withsubsequent bleeding and draining for the next month. On 07/10/19, he was seen the [facility] in [place] for a infected right great toe callus [...] peripheral neuropathy: Last seen Dr. Shivani Fowler [facility] on 03/10/19. OBJECTIVE PHYSICAL EXAM [...] Skin temperature changes: Bilateral feet are warm [place]/calluses: Hyperkeratotic buildup over the right hallux plantar [...] does not cover, he may use an kzvz-wae-ltvyrao antibiotic ointment. He states that he does [...] 2 With Diabetic P olyneuropathy (HCC) Call[facility] [place] [facility] documented in this encounter Care Teams Acid Dipper Relationship Specialty Start Date End Date Lexus Fowler M.D., M.P.H. PCP - General 11/14/18 11/13/[address] [place] [address] documented as of this encounter
--- OUTSIDE RECORDS SUMMARY | 2022-02-17 10:29 | XMS_ITS | Encounter Summary ---
:1940 Author Organization [facility] Address [address] [place] [address] Care Team Providers Name Role Phone Lexus Fowler M.D., M.P.H. Primary Care Provider [phone] Reason for Referral Outpatient (Routine) - Closed Specialty Diagnoses / Procedures Referred By Contact Refer red To Contact Orthopedic Surgery Roslyn Veliz APRN, [place] C.N.P. [address] [place] [address] Referral ID Status Reason Start Date Expiration Date Visits Requ ested Visits Authorized [id number] Closed 12/12/2018 12/12/2019 1 1 Reason for Visit Outpatient (Routine) - Closed Specialty Diagnoses / Procedures Referred By Contact Refer red To Contact Orthopedic Surgery Roslyn Veliz APRN, [place] C.N.P. [address] [place] [address] Referral ID Status Reason Start Date Expiration Date Visits Requ ested Visits Authorized [id number] Closed 10/03/2018 10/03/2019 1 1 Encounter Details Date Type Department Care Team Description 12/12/2018 Procedure visit Department of Roslyn Veliz Dystrophi c Toenail; Orthopedic Surgery in [place], C.N. P. 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 Patien t refused 10/29/2020 Do you [...] Vazquez accompanied by his presents to the [facility] for trimming of his dystrophic toenails and paring a pre ulcerative callus. The patient wears New Balance shoes with molded inserts. He states that he gets these insert from a place out town and that Medicare covers the cost. He has had custom inserts from [employer] in the past. His past medical history [...] Skin temperature changes: Bilateral feet are warm [place]/calluses: Hyperkeratotic buildup over the right hallux plantar [...] 2 With Diabetic N europathy (HCC) Callus [place] [facility] documented in this encounter Care Teams Licensed Nurse Practitioner Relationship Specialty Start Date End Date Lexus Fowler M.D., M.P.H. PCP - General 11/14/18 11/13/21 [address] [place] [address] documented as of this encounter
--- OUTSIDE RECORDS SUMMARY | 2022-02-17 10:29 | XMS_ITS | Encounter Summary ---
:[address] [facility] Address [address] [place] [address] Care Team Providers Name Role Phone Lexus Fowler M.D., M.P.H. Primary Care Provider Reason for Visit Reason Onset Date Comments Med Refill 05/23/2019 Encounter Details Date Type Department Care Team Description 05/23/2019 Refill Department of Family Lexus Fowler M.D., Med Refill Medicine, [facility] M.P .H. brandon Hernandez [facility] [address] [facility] [address] [place] [address] [place] [address] [phone] Social History Tobacco Use Types Packs/Day Years [...] following references were used: nursing clinical judgement TH AND WELLNESS COORDINATOR Telephone Encounter - Marshal Martínez R.N. - 05/23/2019 2:13 PM CST Pharmacy was contact to be sure that they received the prescription. They were able to confirm that it was received. TH AND WELLNESS COORDINATOR Telephone Encounter - Marshal Martínez R.N. - 05/23/2019 1:31 PM CST Lulu, from the patient's pharmacy [facility], called stating that they never received the prescription for Rosuvastatin. The patient is nearly out and needs a refill. [facility] is requesting that a new prescription be sent to them. TH AND WELLNESS COORDINATOR Telephone Encounter - Shashi Doan - 05/23/2019 12:10 PM CST Caller:Vinayak Call back number:[phone] Name of medication:rosuvastatin (CRESTOR) Strength:10 mg tablet Frequency:Take 1 tablet (10 mg total) by mouth daily Quantity:NA PCP: Malcolm Pharmacy:[facility] TH AND WELLNESS COORDINATOR documented in this encounter Plan of Treatment Not on filedocumented as of this encounter Visit Diagnoses Diagnosis Hyperlipidemia documented in this encounter Care Teams Preschool Adviser Relationship Specialty Start Date End Date Lexus Fowler M.D., M.P.H. PCP - General 11/14/18 11/13/21 [address] [place] [address] documented as of this encounter
--- OUTSIDE RECORDS SUMMARY | 2022-02-17 10:29 | XMS_ITS | Encounter Summary ---
:1940 Author Organization [facility] Address [address] [place] [address] Care Team Providers Name Role Phone Lexus Fowler M.D., M.P.H. Primary Care Provider [phone] Reason for Visit Reason Comments Med Refill Encounter Details Date Type Department Care Team Description 01/18/2019 Refill Department of [facility] Kasi Alvarez M.D. Med Refill Medicine, [facility] [address] [place] [address] [place] [address] [address] [facility] [address] [phone] Social History Tobacco Use Types Packs/Day Years [...] How often do you attend muslim or spiritism services? Patien t refused 10/29/2020 Do you belong to any clubs or organizations such as Not aske d muslim groups, unions, fraternal or athletic groups, [...] on filedocumented in this encounter Care Teams Lime Vat Tender Relationship Specialty Start Date End Date Lexus Fowler M.D., M.P.H. PCP - General 11/14/18 11/13/21 [address] [place] [address] documented as of this encounter
--- OUTSIDE RECORDS SUMMARY | 2022-02-17 10:29 | XMS_ITS | Encounter Summary ---
:1940 Author Organization [facility] Address [address] [place] [address] Care Team Providers Name Role Phone Lexus Fowler M.D., M.P.H. Primary Care Provider [phone] Reason for Visit Reason Onset Date Comments Med Refill Med Refill 05/23/2019 Encounter Details Date Type Department Care Team Description 05/23/2019 Refill Department of [employer] [facility] Alvarez, Med Refill; Med Refill Medicine, [facility] Alonso [facility], in [address] [place] [address] [address] [facility] [address] [place] [address] [phone] Social History Tobacco Use Types Packs/Day Years [...] How often do you attend mandaeism or jehovah's witness services? Patien t refused 10/29/2020 Do you [...] Hyperlipidemia documented in this encounter Care Teams Nuclear Plant Technical Advisor Relationship Specialty Start Date End Date Lexus Fowler M.D., M.P.H. PCP - General 11/14/18 11/13/21 [address] [place] [address] documented as of this encounter
--- OUTSIDE RECORDS SUMMARY | 2022-02-17 10:29 | XMS_ITS | Encounter Summary ---
:1940 Author Organization [facility] Address [address] [place] [address] Care Team Providers Name Role Phone Lexus Fowler M.D., M.P.H. Primary Care Provider [phone] Encounter Details Date Type Department Care Team [...] How often do you attend congregational or yazidi services? Patien t refused 10/29/2020 Do you [...] on filedocumented in this encounter Care Teams Non Licensed Operator Relationship Specialty Start Date End Date Lexus Fowler M.D., M.P.H. PCP - General 11/14/18 11/13/21 [address] [place] [address] documented as of this encounter
--- OUTSIDE RECORDS SUMMARY | 2022-02-17 10:29 | XMS_ITS | Encounter Summary ---
:1939 Author Organization [facility] Address [address] [place] [address] Care Team Providers Name Role Phone Lexus Fowler M.D., M.P.H. Primary Care Provider [phone] Reason for Visit Reason Comments Triage Encounter Details Date Type Department Care Team Description 08/16/2019 Clinical Communication Department of Vascular Jaelyn Varela[facility] [address] [address] [phone] Social History Tobacco Use Types Packs/Day Years [...] How often do you attend judaism or scientology services? Patien t refused 10/29/2020 [...] foot ulcer Notes: ortho is referring Saulo [phone] Please route all to the [facility] SCHEDULING pool upon response to this message. documented in this encounter Plan of Treatment Not on filedocumented as of this encounter Visit Diagnoses Not on filedocumented in this encounter Care Teams Mixer Attendant Relationship Specialty Start Date End Date Leuxs Fowler M.D., M.P.H. PCP - General 11/14/18 11/13/21 [address] [place] [address] documented as of this encounter
--- OUTSIDE RECORDS SUMMARY | 2022-02-17 10:29 | XMS_ITS | Encounter Summary ---
:1940 Author Organization [facility] Address [address] [place] [address] Care Team Providers Name Role Phone Lexus Fowler M.D., M.P.H. Primary Care Provider [phone] Encounter Details Date Type Department Care Team Description 03/08/2019 Hospital Encounter Department of Kristal Galeana Diabet es Mellitus Laboratory Medicine Alonso Type 2 (HCC) in [address] [address] [phone] Social History Tobacco Use Types Packs/Day Years [...] 10/29/2020 relatives? How often do you attend confucianism or temple services? Patien t refused 10/29/2020 Do you belong to any clubs or organizations such as Not aske d confucianism groups, unions, fraternal or athletic groups, or [...] Its performance characteri stics were determined by [facility] in a manner co nsistent with CLIA [...] [facility] - [address] [place], [place] [address] [facility] [place] [address] Laboratories-[facility] [address] documented in this encounter Visit Diagnoses Diagnosis Diabetes Mellitus Type 2 (HCC) documented in this encounter Care Teams Commercial Tire Service Technician Relationship Specialty Start Date End Date Lexus Fowler M.D., M.P.H. PCP - General 11/14/18 11/13/21 [address] [place] [address] documented as of this encounter
--- OUTSIDE RECORDS SUMMARY | 2022-02-17 10:29 | XMS_ITS | Encounter Summary ---
:[address] [facility] Address [address] [place] [address] Care Team Providers Name Role Phone Lexus Fowler M.D., M.P.H. Primary Care Provider [phone] Encounter Details Date Type Department Care Team Description 09/26/2019 Hospital Encounter Department of Lexus Fowler Diab etes Mellitus Laboratory Medicine Alonso Lassiter, M.P .H. Type [address] Diabetic Neuropathy [place], [place] ([facility]) 411 [facility] [address] [place], [place] [phone] [address] (Work) [phone] Social History Tobacco Use Types Packs/Day Years [...] How often do you attend shinto or zoroastrian services? Patien t refused 10/29/2020 [...] (two) With Diabetic Neuropathy times a day. ([facility]) ONETOUCH ULTRA BLUE TEST daily. 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 PCP - General 11/14/18 11/13/[address] [place] [address] documented as of this encounter
--- OUTSIDE RECORDS SUMMARY | 2022-02-17 10:29 | XMS_ITS | Encounter Summary ---
:1940 Author Organization [facility] Address [address] [place] [address] Care Team Providers Name Role Phone Lexus Fowler M.D., M.P.H. Primary Care Provider [phone] Reason for Visit Reason Comments Med Refill Encounter Details Date Type Department Care Team Description 03/15/2019 Refill Department of [facility] Kasi Alvarez M.D. Med Refill Medicine, [facility] [address] [place] [address] [place] [address] 411 [facility] [place] [address] [phone] Social History Tobacco Use Types Packs/Day Years [...] How often do you attend hindu or buddhist services? Patien t refused 10/29/2020 Do you belong to any clubs or organizations such as Not aske d hindu groups, unions, fraternal or athletic groups, [...] on filedocumented in this encounter Care Teams Home Health Registered Nurse Relationship Specialty Start Date End Date Lexus Fowler M.D., M.P.H. PCP - General 11/14/18 11/13/21 [address] [place] [address] documented as of this encounter
--- OUTSIDE RECORDS SUMMARY | 2022-02-17 10:29 | XMS_ITS | Encounter Summary ---
:1940 Author Organization [facility] Address [address] [place] [address] Care Team Providers Name Role Phone Lexus Fowler M.D., M.P.H. Primary Care Provider [phone] Encounter Details Date Type Department Care Team Description 10/02/2019 Hospital Encounter Department of Roslyn Veliz Diabet es Mellitus 2 Radiology, Clark LOWRY C.N.P. Ulcer Toe ([facility]) Building, in [address] [place] [address] [place], [place] [phone] [address] (Work) [phone] Social History Tobacco Use Types Packs/Day Years [...] 10/29/2020 relatives? How often do you attend buddhist or uatsdin services? Patien t refused 10/29/2020 Do you belong to any clubs or organizations such as Not aske d buddhist groups, unions, fraternal or athletic groups, or [...] for the very basics like Not h socar at all 10/29/2020 food, housing, medical care, [...] (two) With Diabetic Neuropathy times a day. ([facility]) ONETOUCH ULTRA BLUE TEST daily. [...] (HCC) documented in this encounter Care Teams Rpg Developer Relationship Specialty Start Date End Date Lexus Fowler M.D., M.P.H. PCP - General 11/14/18 11/13/21 [address] [place] [address] documented as of this encounter
--- OUTSIDE RECORDS SUMMARY | 2022-02-17 10:29 | XMS_ITS | Encounter Summary ---
:1940 Author Organization [facility] Address [address] [place] [address] Care Team Providers Name Role Phone Lexus Fowler M.D., M.P.H. Primary Care Provider [phone] Encounter Details Date Type Department Care Team Description 03/08/2019 Hospital Encounter Department of Kristal Galeana Diabet es Mellitus Laboratory Medicine Alonso Type 2 (HCC) in [address] [address] [phone] Social History Tobacco Use Types Packs/Day Years [...] How often do you attend muslim or hoahaoism services? Patien t refused 10/29/2020 [...] [employer] and performed on the [employer] or Zhang system . Values obtained with [...] BLOOD ADD-ON Performing Organization Address City/[facility] Phon e Number [facility] - [address] [place], [place] [address] [facility] [place] [address] Laboratories-[address] (ABNORMAL) Hemoglobin A1c (03/08/2019 8:40 AM [...] BLOOD ADD-ON Performing Organization Address City/[facility] Phon e Number [facility] - 200 [place], [place] [address] [facility] [place] [address] documented in this encounter Visit Diagnoses Diagnosis Diabetes Mellitus Type 2 (HCC) documented in this encounter Care Teams Apartment Manager Relationship Specialty Start Date End Date Lexus Fowler M.D., M.P.H. PCP - General 11/14/18 11/13/21 [address] [place] [address] documented as of this encounter
--- OUTSIDE RECORDS SUMMARY | 2022-02-17 10:29 | XMS_ITS | Encounter Summary ---
:1940 Author Organization [facility] Address [address] [place] [address] Care Team Providers Name Role Phone Lexus Fowler M.D., M.P.H. Primary Care Provider [phone] Reason for Visit Reason Comments Med Refill Encounter Details Date Type Department Care Team Description 03/20/2019 Refill Department of [facility] Dinah Vargas RClarenceNClarence Med Refill Medicine, [facility] brandon Hernandez M [facility] [address] [place] [address] Social History Tobacco Use Types Packs/Day Years [...] How often do you attend muslim or yarsanism services? Patien t refused 10/29/2020 Do you [...] Vijaya Vargas L.P.N. - 03/20/2019 4:18 PM LIQUOR RECTIFIER Patient requested Amlodipine (Norvasc) 5 mg prescription and states that pharmacy did not receive iton 03/10. OR RECTIFIER documented in this encounter Plan of Treatment Not on filedocumented as of this encounter Visit Diagnoses Diagnosis Hypertension Essential Primary documented in this encounter Care Teams Director Geothermal Operations Relationship Specialty Start Date End Date Lexus Fowler M.D., M.P.H. PCP - General 11/14/18 11/13/21 [address] [place] [address] documented as of this encounter
--- OUTSIDE RECORDS SUMMARY | 2022-02-17 10:29 | XMS_ITS | Encounter Summary ---
:1939 Author Organization [facility] Address [address] [place] [address] Care Team Providers Name Role Phone Lexus Fowler M.D., M.P.H. Primary Care Provider [phone] Encounter Details Date Type Department Care Team Description 03/17/2019 Medication Department of Lexus Fowler on Management Family MedicineMaikol M.D., M.P.H. Essential Primary [facility] [address] [place] [address] [address] [facility] [phone] [place], [place] (Work) [address] Social History Tobacco Use [...] How often do you attend worship or anabaptism services? Patien t refused 10/29/2020 [...] Primary documented in this encounter Care Teams Quilting Machine Operator Relationship Specialty Start Date End Date Lexus Fowler M.D., M.P.H. PCP - General 11/14/18 11/13/21 [address] [place] [address] documented as of this encounter
--- OUTSIDE RECORDS SUMMARY | 2022-02-17 10:29 | XMS_ITS | Encounter Summary ---
:1939 Author Organization [facility] Address [address] [place] [address] Care Team Providers Name Role Phone Lexus Fowler M.D., M.P.H. Primary Care Provider [phone] Reason for Visit Reason Comments Med Refill Encounter Details Date Type Department Care Team Description 05/12/2019 Refill Department of [facility] Kasi Alvarez M.D. Med Refill Medicine, [facility] [address] [place] [address] [place] [address] [address] [facility] [place] [address] [phone] Social History Tobacco Use Types Packs/Day Years [...] How often do you attend confucianist or faith services? Patien t refused 10/29/2020 Do you belong to any clubs or organizations such as Not aske d confucianist groups, unions, fraternal or athletic groups, [...] Hyperlipidemia documented in this encounter Care Teams Instrument Tech Relationship Specialty Start Date End Date Lexus Fowler M.D., M.P.H. PCP - General 11/14/18 11/13/21 [address] [place] [address] documented as of this encounter
--- OUTSIDE RECORDS SUMMARY | 2022-02-17 10:29 | XMS_ITS | Encounter Summary ---
:1940 Author Organization [facility] Address [address] [place] [address] Care Team Providers Name Role Phone Lexus Fowler M.D., M.P.H. Primary Care Provider [phone] Encounter Details Date Type Department Care Team Description 03/10/2019 Hospital Encounter Department of Lexus Fowler rtension Laboratory Medicine Alonso Lassiter, M.P .H. Essential Primary in [address] 411 [facility] [address] [place], [place] [phone] (Work) [phone] Social History Tobacco Use Types Packs/Day Years [...] How often do you attend advent or christian services? Patien t refused 10/29/2020 Do you belong to any clubs or organizations such as Not aske d advent groups, unions, fraternal or athletic groups, [...] (two) With Diabetic Neuropathy times a day. ([facility]) [employer] ULTRA BLUE TEST daily. for 3 01/07/2018 [...] CDT eGFR-Black/Afric 63 >=60 03/10/2019 [facility] an Mosotho mL/min/BSA 11:18 AM CDT Comment: ----ADDITIONAL INFORMATION---- Estimated GFR calculated using the 2009 CKD_EPI creatinine equation. eGFR Non-Black/ 54 (L) >=60 mL/min/BSA 03/10/2019 11:18 AM CDT [facility] [place] Comment: ----ADDITIONAL INFORMATION---- Estimated GFR calculated using the 2009 CKD_EPI creatinine equation. Specimen Anatomical Collection Method Collection Time Receive d Time (Source) Location / / Volume Laterality Blood (Blood, 03/10/2019 10:44 03/10/2019 Venous) AM CDT 10:44 AM CDT Lexus Fowler M.D., M.P.H. LAB BLOOD ADD-ON Performing Organization Address City/[facility]/ZIP Code Phon e Number [facility] [address] [place] [address] [place] [address] 411 [facility] Sodium (03/10/2019 10:44 AM CDT) P athologist Signature Sodium, P 139 135 - 145 03/10/2019 [facility] mmol/L 11:18 AM CDT Specimen Anatomical Collection Method Collection Time Receive d Time (Source) Location / / Volume Laterality Blood (Blood, 03/10/2019 10:44 03/10/2019 Venous) AM CDT 10:44 AM CDT Lexus Fowler M.D., M.P.H. LAB BLOOD ADD-ON Performing Organization Address City/[facility]/ZIP Code Phon e Number [facility] [address] [place] [address] [place], [place] [phone] [place] [address] Potassium (03/10/2019 10:44 AM CDT) P athologist Signature Potassium, P 4.8 3.6 - 5.2 03/10/2019 [facility] mmol/L 11:18 AM CDT Specimen Anatomical Collection Method Collection Time Receive d Time (Source) Location / / Volume Laterality Blood (Blood, 03/10/2019 10:44 03/10/2019 Venous) AM CDT 10:44 AM CDT Lexus Fowler M.D., M.P.H. LAB BLOOD ADD-ON Performing Organization Address City/[facility]/ZIP Code Phon e Number [facility] [address] [place] [address] [place] [address] 411 [facility] documented in this encounter Visit Diagnoses Diagnosis Hypertension Essential Primary documented in this encounter Care Teams Flavor Tank Tender Relationship Specialty Start Date End Date Lexus Fowler M.D., M.P.H. PCP - General 11/14/18 11/13/21 [address] [place] [phone] documented as of this encounter
--- OUTSIDE RECORDS SUMMARY | 2022-02-17 10:29 | XMS_ITS | Encounter Summary ---
:1940 Author Organization [facility] Address [address] [place] [address] Care Team Providers Name Role Phone Lexus Fowler M.D., M.P.H. Primary Care Provider [phone] Reason for Referral Outpatient (Routine) - Closed Specialty Diagnoses / Procedures Referred By Contact Refer red To Contact Orthopedic Surgery Adan Mosquera [facility] Zofia-Stevenson 200 [place] [address] Referral ID Status Reason Start Date Expiration Date Visits Requ ested Visits Authorized [id number] Closed 03/06/2019 03/05/2020 1 1 Reason for Visit Outpatient (Routine) - Closed Specialty Diagnoses / Procedures Referred By Contact Refer red To Contact Orthopedic Surgery Roslyn Veliz APRN, [facility] C.N.PClarence [address] [place] [phone] Referral ID Status Reason Start Date Expiration Date Visits Requ ested Visits Authorized [id number] Closed 12/12/2018 12/12/2019 1 1 Encounter Details Date Type Department Care Team Description 03/06/2019 Procedure visit Department of Adan Mosquera orn Foot (Primary Dx); Orthopedic Surgery in [place] Irby Dystro phic Toenail; [place], [place] Diabetes Mellitus Type 2 Wit h Diabetic Neuropathy (HCC) [address] [place] [phone] Social History Tobacco Use Types Packs/Day Years [...] How often do you attend zoroastrian or scientologist services? Patien t refused 10/29/2020 [...] 11:00 AM CDT SUBJECTIVE REFERRAL INFORMATION Roslyn Veliz, [place], C.N.P. [address] [place] [phone] CHIEF COMPLAINT/REASON FOR VISIT Callus paring, right great toe. HISTORY OF PRESENT ILLNESS Mr. Vazquez is a very pleasant 78 y.o. male who returns to [facility] Podiatry for paring of his recurrent [...] pain: 0/10. ASSESSMENT / PLAN #1 Callus [place] Foot #2 Dystrophic Toenail #3 Diabetes Mellitus [...] mid August 2019 after he returns from [place], [place]. Should any issues, concerns, or questions arise in the interim, the patient should notify us. 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 PCP - General 11/14/18 11/13/21 [address] [place] [address] documented as of this encounter
--- OUTSIDE RECORDS SUMMARY | 2022-02-17 10:30 | XMS_ITS | Encounter Summary ---
:1940 Author Organization [facility] Address [address] [place] [address] Care Team Providers Name Role Phone Reuben Cavazos B.M.B.S. Primary Care Provider Unavailable Encounter Details Date Type Department Care Team Description 09/09/2017 Orders Only Department of Family Reuben Cavazos Dia betes Mellitus Type Medicine, [facility] B.M.B.S. 2 With out Complication [facility] ut ([facility]) [place], [place] [address] [place] [address] Social History Tobacco Use Types Packs/Day Years [...] How often do you attend alevism or protestant services? Patien t refused 10/29/2020 [...] (HCC) documented in this encounter Care Teams Outside Maintenance Worker Relationship Specialty Start Date End Date Reuben Cavazos B.M.BClarenceS. PCP - General Family Medicine 11/19/14 11/12/17 documented as of this encounter
--- OUTSIDE RECORDS SUMMARY | 2022-02-17 10:30 | XMS_ITS | Encounter Summary ---
:1940 Author Organization [facility] Address [address] [place] [address] Care Team Providers Name Role Phone Bryce Monahan D.O. Primary Care Provider [phone] Reason for Referral Outpatient (Routine) - Closed Specialty Diagnoses / Procedures Referred By Contact Refer red To Contact Family Medicine Kristal Galeana M.D. [address] [place] [address] Referral ID Status Reason Start Date Expiration Date Visits Requ ested Visits Authorized [id number] Closed 12/01/2017 12/01/2018 [address] Galeana if possible Reason for Visit Reason Comments Other spot on neck Appointment Request (Routine) - Closed Specialty Diagnoses / Procedures Referred By Contact Refer red To Contact Family Medicine Referral ID Status Reason Start Date Expiration Date Visits Requ ested Visits Authorized [id number] Closed 11/30/2017 11/30/2018 1 1 Encounter Details Date Type Department Care Team Description 12/01/2017 Office Visit Department of Kristal Ramon Lesio n Skin Neck (Primary Dx); Medicine, Estiven Osborn M.D. [facility] [address] [place] [address] [address] [facility] [phone] [place] [address] (Work) [phone] Social History Tobacco Use Types Packs/Day Years [...] How often do you attend episcopalian or episcopal services? Patien t refused 10/29/2020 Do you belong to any clubs or organizations such as Nabil borrero episcopalian groups, unions, fraternal or athletic groups, [...] Name Type Priority Associated Diagnoses Order [facility] Family Medicine Outpatient Referral Routine Expec margoth: office visit 12/01/2017 (clinic) (Approximate), Expires: 12/01/2020 documented as of this encounter Visit Diagnoses Diagnosis Lesion Skin Neck - Primary Tag Skin documented in this encounter Care Teams Tile Layer Supervisor Relationship Specialty Start Date End Date Bryce Monahan D.O. PCP - General Family Medicine 11/13/17 01/18/18 [address] [place] [address] documented as of this encounter
--- OUTSIDE RECORDS SUMMARY | 2022-02-17 10:30 | XMS_ITS | Encounter Summary ---
:1940 Author Organization [facility] Address [address] [place] [address] Care Team Providers Name Role Phone Kristal Galeana M.D. Primary Care Provider Reason for Visit Reason Comments Diabetic Eye Exam Appointment Request (Routine) - Closed Specialty Diagnoses / Procedures Referred By Contact Refer red To Contact Ophthalmology Referral ID Status Reason Start Date Expiration Date Visits Requ ested Visits Authorized [id number] Closed 07/05/2018 07/05/2019 1 1 Encounter Details Date Type Department Care Team Description 09/13/2018 Comprehensive Visit Department of Aranza Michaels [facility] Ophthalmology in [place], [facility] Scl erosis [place], [place] O.D. Bilateral (Primary [address] [place] [address] [facility] Dx) [place] [address] [phone] Social History Tobacco Use Types Packs/Day Years [...] How often do you attend baptist or jewish services? Elizabeth calvillo refused 10/29/2020 Do you [...] Primary documented in this encounter Care Teams Restaurant Hospitality Manager Relationship Specialty Start Date End Date Kristal Galeana M.D. PCP - General Family Medicine 01/19/18 11/13/18 documented as of this encounter
--- OUTSIDE RECORDS SUMMARY | 2022-02-17 10:30 | XMS_ITS | Encounter Summary ---
:1939 Author Organization [facility] Address [address] [place] [address] Care Team Providers Name Role Phone Kristal Galeana M.D. Primary Care Provider Reason for Visit Reason Comments Med Refill Encounter Details Date Type Department Care Team Description 02/13/2018 Refill Department of Family Medicine, Kristal Keith M.D. Med Refill [address] [place] [address] [place] [address] [place] [address] [phone] Social History Tobacco Use Types Packs/Day Years [...] How often do you attend lutheran or advent services? Patien t refused 10/29/2020 [...] on filedocumented in this encounter Care Teams Private Investigator Surveillance Relationship Specialty Start Date End Date Kristal Galeana M.D. PCP - General Family Medicine 01/19/18 11/13/18 documented as of this encounter
--- OUTSIDE RECORDS SUMMARY | 2022-02-17 10:30 | XMS_ITS | Encounter Summary ---
:1940 Author Organization [facility] Address [address] [place] [address] Care Team Providers Name Role Phone Kristal Galeana M.D. Primary Care Provider Reason for Visit Reason Onset Date Comments question 03/04/2018 Encounter Details Date Type Department Care Team Description 03/04/2018 Clinical Communication Department of Maiokl Loredo question Medicine, [facility] M.D. [place], [place] [address] [place] [address] 411 [facility] [address] [place] [address] [phone] Social History Tobacco Use Types Packs/Day Years [...] How often do you attend evangelical or scientology services? Patien t refused 10/29/2020 Do you belong to any clubs or organizations such as Nabil borrero evangelical groups, unions, fraternal or athletic groups, [...] on filedocumented in this encounter Care Teams Cleaning Maid Relationship Specialty Start Date End Date Kristal Galeana M.D. PCP - General Family Medicine 01/19/18 11/13/18 documented as of this encounter
--- OUTSIDE RECORDS SUMMARY | 2022-02-17 10:30 | XMS_ITS | Encounter Summary ---
:1940 Author Organization [facility] Address [address] [place] [address] Care Team Providers Name Role Phone Bryce Monahan D.O. Primary Care Provider [phone] Reason for Referral Outpatient (Routine) - Closed Specialty Diagnoses / Procedures Referred By Contact Refer red To Contact Orthopedic Surgery Roslyn Veliz APRN, [facility] C.N.P. [address] [place] [phone] Referral ID Status Reason Start Date Expiration Date Visits Requ ested Visits Authorized [id number] Closed 01/13/2018 01/13/2019 1 1 Reason for Visit Outpatient (Routine) - Closed Specialty Diagnoses / Procedures Referred By Contact Refer red To Contact Orthopedic Surgery Roslyn Veliz APRN, [facility] C.N.P. [address] [place] [phone] Referral ID Status Reason Start Date Expiration Date Visits Requ ested Visits Authorized [id number] Closed 10/13/2017 10/13/2018 1 1 Encounter Details Date Type Department Care Team Description 01/13/2018 Procedure visit Department of Roslyn Veliz Callus Co rn Foot; Orthopedic Surgery in [place] C.N. P. Diabetes Mellitus Type 2 With Diabetic N europathy ([facility]) [place], [place] [address] [facility] [address] [place] [address] [phone] Social History Tobacco Use Types Packs/Day Years [...] How often do you attend synagogue or anabaptism services? Patien t refused 10/29/2020 [...] PRESENT ILLNESS Mr. 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 PCP - General Family Medicine 11/13/17 01/18/18 [address] [place] [address] documented as of this encounter
--- OUTSIDE RECORDS SUMMARY | 2022-02-17 10:30 | XMS_ITS | Encounter Summary ---
:1940 Author Organization [facility] Address [address] [place] [address] Care Team Providers Name Role Phone Kristal Galeana M.D. Primary Care Provider Reason for Visit Reason Comments Med Refill Encounter Details Date Type Department Care Team Description 01/23/2018 Refill Department of Family Medicine, Kristal Keith M.D. Med Refill [address] [place] [address] [place] [address] [place] [address] [phone] Social History Tobacco Use Types Packs/Day Years [...] How often do you attend confucianist or pentecostal services? Patien t refused 10/29/2020 [...] on filedocumented in this encounter Care Teams Fire Protection Engineer Relationship Specialty Start Date End Date Kristal Galeana M.D. PCP - General Family Medicine 01/19/18 11/13/18 documented as of this encounter
--- OUTSIDE RECORDS SUMMARY | 2022-02-17 10:30 | XMS_ITS | Encounter Summary ---
:1940 Author Organization [facility] Address [address] [place] [address] Care Team Providers Name Role Phone Bryce Monahan D.O. Primary Care Provider [phone] Encounter Details Date Type Department Care [...] How often do you attend sikhism or confucianist services? Patien t refused 10/29/2020 Do you belong to any clubs or organizations such as Not jelani borrero sikhism groups, unions, fraternal or athletic [...] on filedocumented in this encounter Care Teams Investigator Welfare Relationship Specialty Start Date End Date Bryce Monahan D.O. PCP - General Family Medicine 11/13/17 01/18/[address] [place] [address] documented as of this encounter
--- OUTSIDE RECORDS SUMMARY | 2022-02-17 10:30 | XMS_ITS | Encounter Summary ---
:1940 Author Organization [facility] Address [address] [place] [address] Care Team Providers Name Role Phone Reuben Cavazos Primary Care Provider Unavailable Reason for Visit Reason Comments Immunizations Appointment Request (Routine) - Closed Specialty Diagnoses / Procedures Referred By Contact Refer red To Contact Family Medicine Referral ID Status Reason Start Date Expiration Date Visits Requ ested Visits Authorized [id number] Closed 10/12/2017 10/12/2018 1 1 Encounter Details Date Type Department Care Team Description 11/10/2017 Nurse Only Department of Family Sarah Ortiz L.P.N . Immunizations Medicine, [facility] or [facility] [address] [place] [address] Social History Tobacco Use Types Packs/Day Years [...] How often do you attend zoroastrianism or baptist services? Patien t refused 10/29/2020 Do you belong to any clubs or organizations such as Nabil borrero zoroastrianism groups, unions, fraternal or athletic groups, [...] Primary documented in this encounter Care Teams Recreation Facility Attendant Relationship Specialty Start Date End Date Reuben Cavazos B.M.B.S. PCP - General Family Medicine 11/19/14 11/12/17 documented as of this encounter
--- OUTSIDE RECORDS SUMMARY | 2022-02-17 10:30 | XMS_ITS | Encounter Summary ---
:1940 Author Organization [facility] Address [address] [place] [address] Care Team Providers Name Role Phone Reuben Cavazos Primary Care Provider Unavailable Reason for Referral Outpatient (Routine) - Closed Specialty Diagnoses / Procedures Referred By Contact Refer red To Contact Orthopedic Surgery Roslyn Veliz APRN, [facility] C.N.PClarence [address] [place] [phone] Referral ID Status Reason Start Date Expiration Date Visits Requ ested Visits Authorized [id number] Closed 10/13/2017 10/13/2018 1 1 Encounter Details Date Type Department Care Team Description 10/13/2017 Procedure visit Department of Roslyn Veliz Callus Co rn Foot (Primary Dx); Orthopedic Surgery in [place] C.N. 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 Patien t refused 10/29/2020 [...] PRESENT ILLNESS Mr. Vazquez presents to the [facility] Podiatry Clinic with calluses on [...] Diabetes Mellitus Type 2 (HCC) #2 Callus [place] Foot #3 Hyperlipidemia #4 Hypertension #5 Diabetes [...] pain. 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 PCP - General Family Medicine 11/19/14 11/12/17 documented as of this encounter
--- OUTSIDE RECORDS SUMMARY | 2022-02-17 10:30 | XMS_ITS | Encounter Summary ---
:1939 Author Organization [facility] Address [address] [place] [address] Care Team Providers Name Role Phone Kristal Galeana M.D. Primary Care Provider Encounter Details Date Type Department Care Team Description 01/19/2018 Clinical Communication Department of Letitia Ramon, Medicine, [facility] Alonso [address] [place] [address] [place] [address] [place] [address] (Work) [phone] Social History Tobacco Use Types Packs/Day Years [...] How often do you attend yazidi or muslim services? Patien t refused 10/29/2020 [...] CDT Caller:Vinayak Vazquez Relationship to Patient:self Callback Number:[phone] Pharmacy: Request/Details:patient has diabetic lab scheduled on [...] on filedocumented in this encounter Care Teams Department Secretary Relationship Specialty Start Date End Date Kristal Galeana M.D. PCP - General Family Medicine 01/19/18 11/13/18 documented as of this encounter
--- OUTSIDE RECORDS SUMMARY | 2022-02-17 10:30 | XMS_ITS | Encounter Summary ---
:1940 Author Organization [facility] Address [address] [place] [address] Care Team Providers Name Role Phone Kristal Galeana M.D. Primary Care Provider Reason for Referral Outpatient (Routine) - Closed Specialty Diagnoses / Procedures Referred By Contact Refer red To Contact Orthopedic Surgery Roslyn Veliz APRN, [facility] C.N.P. [address] [place] [phone] Referral ID Status Reason Start Date Expiration Date Visits Requ ested Visits Authorized [id number] Closed 09/05/2018 09/05/2019 1 1 Reason for Visit Outpatient (Routine) - Closed Specialty Diagnoses / Procedures Referred By Contact Refer red To Contact Orthopedic Surgery Roslyn Veliz APRN, [facility] C.N.P. [address] [place] [phone] Referral ID Status Reason Start Date Expiration Date Visits Requ ested Visits Authorized [id number] Closed 03/10/2018 03/10/2019 1 1 Encounter Details Date Type Department Care Team Description 09/05/2018 Procedure visit Department of Roslyn Veliz Callus Co rn Foot; Orthopedic Surgery in [place] C.N. P. 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 Patien t refused 10/29/2020 [...] PRESENT ILLNESS Mr. Vazquez presents to the [facility] Podiatry Clinic with calluses on bilateral feet plantar surface. He states that he has his toenails taking care of in a salon and that they also work on his calluses. The patient wears [employer] shoes with [id number] inserts. He has had custom inserts fromLairs, butstates that these were more expensive and in seem to work any better. He and his return from [place] a few weeks ago. 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 PCP - General Family Medicine 01/19/18 11/13/18 documented as of this encounter
--- OUTSIDE RECORDS SUMMARY | 2022-02-17 10:30 | XMS_ITS | Encounter Summary ---
:1940 Author Organization [facility] Address [address] [place] [address] Care Team Providers Name Role Phone Kristal Galeana M.D. Primary Care Provider Reason for Referral Outpatient (Routine) - Closed Specialty Diagnoses / Procedures Referred By Contact Refer red To Contact Family Medicine Diagnoses Diabetes Mellitus Type 2 (HCC) [facility] [address] [place] [phone] Referral ID Status Reason Start Date Expiration Date Visits Requ ested Visits Authorized [id number] Closed 03/04/2018 03/04/2019 1 1 Reason for Visit Reason Comments Diabetes Appointment Request (Routine) - Closed Specialty Diagnoses / Procedures Referred By Contact Refer red To Contact Family Medicine Referral ID Status Reason Start Date Expiration Date Visits Requ ested Visits Authorized [id number] Closed 01/19/2018 01/19/2019 1 1 Encounter Details Date Type Department Care Team Description 03/04/2018 Office Visit Department of [facility] Kristal Galeana M.D. [address] [place] [address] 5 [place] [address] Diabetes Mellitus Type 2 (HCC) (Primary Dx); Medicine, [facility] Med Alvarez M.D. 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 Patien t refused 10/29/2020 [...] is planning for an eye exam in [place] in the coming weeks. He is up-to-date [...] Diabetes Mellitus Type 2 With Diabetic Neuropathy ([facility]) #3 Hyperlipidemia - Lipid Panel; [...] Name Type Priority Associated Diagnoses Order S [facility] Outpatient Referral Routine Diabetes Mellitus Expected: office visit Type 2 (HCC) 09/02/2018 (clinic) - Other (Approximat e), provider Expires: 03/04/2021 documented as of this encounter Results Creatinine with Estimated GFR (09/02/2018 8:15 AM CDT) P athologist Signature Creatinine 1.06 0.74 - 09/02/2018 [facility] 1.35 mg/dL 9:02 AM CDT [facility] eGFR-Black/Afri 77 >=60 09/02/2018 [facility] can Moroccan mL/min/BSA 9:02 AM [facility] Comment: ----ADDITIONAL INFORMATION---- Estimated GFR calculated using the 2009 CKD_EPI creatinine equation. eGFR Non-Black/ 66 >=60 mL/min/BSA 09/02/2018 9:02 AM [facility] Moroccan [facility] Comment: ----ADDITIONAL INFORMATION---- Estimated GFR calculated using the 2009 CKD_EPI creatinine equation. Specimen Anatomical Collection Method Collection Time Receive d Time (Source) Location / / Volume Laterality Blood (Blood, 09/02/2018 8:15 AM 09/03/19 8:15 Venous) CDT AM CDT Med Alvarez M.D. LAB BLOOD ADD-ON Performing Organization Address City/[facility] Phon e Number [address] [address] Sodium (09/02/2018 8:15 AM CDT) P athologist Signature Sodium, P 136 135 - 145 09/02/2018 [facility] mmol/L 9:02 AM [facility] Specimen Anatomical Collection Method Collection Time Receive d Time (Source) Location / / Volume Laterality Blood (Blood, 09/02/2018 8:15 AM 09/03/19 8:15 Venous) CDT AM CDT Med Alvarez M.D. LAB BLOOD ADD-ON Performing Organization Address City/[facility]/ZIP Code Phon e Number [address] [address] Potassium (09/02/2018 8:15 AM CDT) P athologist Signature Potassium, P 4.4 3.6 - 5.2 09/02/2018 [facility] mmol/L 9:02 AM [facility] Specimen Anatomical Collection Method Collection Time Receive d Time (Source) Location / / Volume Laterality Blood (Blood, 09/02/2018 8:15 AM 09/03/19 8:15 Venous) CDT AM CDT Med Alvarez M.D. LAB BLOOD ADD-ON Performing Organization Address City/State/[facility] Code Phon e Number [facility] [address] [place] [address] Lipid Panel (09/02/2018 8:15 AM CDT) P athologist Signature Cholesterol, 112 mg/dL 09/02/2018 [facility] Total 1:[address] [facility] Comment: ----REFERENCE VALUE---- Desirable: < 200 Borderline high: 200 - 239 High: > or = 240 Triglycerides 95 mg/dL 09/02/2018 1:24 PM CDT [facility] Comment: ----REFERENCE VALUE---- Normal: <150 Borderline high: 150-199 High: 200-499 Very high: > or =500 Cholesterol, HDL, S 49 >=40 mg/dL 09/02/2018 1:24 PM CDT [facility] Calculated LDL 44 mg/dL 09/02/2018 1:24 PM CDT [facility] Comment: ----REFERENCE VALUE---- Desirable: <100 Above Desirable: 100-129 Borderline high: 130-159 High: 160-189 Very high: > or =190 Cholesterol, Non-HDL, 63 mg/dL 09/02/2018 1:24 PM CDT [facility] Comment: ----REFERENCE VALUE---- Desirable: <130 Above Desirable: 130-159 Borderline high: 160-189 High: 190-219 Very high: > or =220 Specimen Anatomical Collection Method Collection Time Receive d Time (Source) Location / / Volume Laterality Blood (Blood, 09/02/2018 8:15 AM 09/03/19 19 Venous) CDT 12:41 PM CDT Med Alvarez M.D. LAB BLOOD ADD-ON Performing Organization Address City/State/ZIP Code Phon e Number [facility] - [address] [place], [place] [address] [place] (ABNORMAL) Hemoglobin A1c (09/02/2018 8:15 AM CDT) Patholo gist Method Time Signature Hemoglobin A1c, 6.7 (H) 4.0 - 5.6 09/02/2018 [facility] B % 3:[address] 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 PCP - General Family Medicine 01/19/18 11/13/18 documented as of this encounter
--- OUTSIDE RECORDS SUMMARY | 2022-02-17 10:30 | XMS_ITS | Encounter Summary ---
:1940 Author Organization [facility] Address [address] [place] [address] Care Team Providers Name Role Phone Reuben [...] How often do you attend spiritism or zoroastrian services? Patien t refused 10/29/2020 Do you belong to any clubs or organizations such as Not maye gissell spiritism groups, unions, fraternal or athletic groups, [...] on filedocumented in this encounter Care Teams Bending Machine Set Up Operator Relationship Specialty Start Date End Date Reuben Cavazos B.M.B.S. PCP - General Family Medicine 11/19/14 11/12/17 documented as of this encounter
--- OUTSIDE RECORDS SUMMARY | 2022-02-17 10:30 | XMS_ITS | Encounter Summary ---
:1940 Author Organization [facility] Address [address] [place] [address] Care Team Providers Name Role Phone Elsewhere, Pcp Primary Care Provider Unavailable Encounter Details Date Type Department Care Team Description 01/29/2017 Historical Ophthalmology RST OPH Tania Michaels O.D. [address] [place], [place] [phone] (Wo rk) Social History [...] How often do you attend buddhism or scientology services? Patien t refused 10/29/2020 [...] eyes, not visually significant. CDM Reports - [facility] Id: [id number] Status: Fnl documented in this encounter Plan of Treatment Not on filedocumented as of this encounter Visit Diagnoses Not on filedocumented in this encounter Care Teams Senior Corporate Recruiter Relationship Specialty Start Date End Date Elsewhere, Pcp PCP - General Internal Medicine 02/04/22 documented as of this encounter
--- OUTSIDE RECORDS SUMMARY | 2022-02-17 10:30 | XMS_ITS | Encounter Summary ---
:1940 Author Organization [facility] Address [address] [place] [address] Care Team Providers Name Role Phone Kristal Galeana M.D. Primary Care Provider Encounter Details Date Type Department Care Team Description 01/26/2018 Orders Only Department of Family Kristal Galeana Diabe gil Mellitus Type 2 (HCC) (Primary Dx); Medicine, Estiven Osborn M.D. Hypertension Essential Primary; Clinic [address] [place] [address] [facility] [phone] [place] [address] (Work) [phone] Social History Tobacco Use Types Packs/Day Years [...] How often do you attend congregational or episcopal services? Patien t refused 10/29/2020 [...] CDT) athologist Signature Microalbumin 9.3 mg/L 02/28/2018 [facility] 2:38 PM CDT LABORATORIES [facility] Comment: ----ADDITIONAL INFORMATION---- This test has been modified from the man ufacturer's instructions. Its performance characteri stics were determined by [facility] in a manner co nsistent with CLIA requirements. This test has not bee n cleared or approved by the U.S. Food and Drug Admin istration. Creatinine 125 mg/dL 02/28/2018 2:38 PM CDT [facility] Albumin/Creatinine 7 <17 mg/g 02/28/2018 2:38 PM CD T [facility] Specimen Anatomical Collection Method Collection Time Receive d Time (Source) Location / / Volume Laterality Urine (Urine, 02/28/2018 8:40 AM 02/29/20 18 1:31 Clean Catch) CDT PM CDT Kristal Galeana M.D. LAB URINE ORDERABLES Performing Organization Address City/State/ZIP Code Phon e Number [facility] - [address] [place], [place] [address] [facility] PSA (Prostate-Specific Antigen), Diagnostic (02/28/2018 7:58 AM CDT) athologist Signature Prostate-Speci 0.98 <=6.5 02/28/2018 [facility] fic Ag ng/mL 2:29 PM CDT LABORATORIES [facility] Comment: ----ADDITIONAL INFORMATION---- The testing method is [...] Address City/State/ZIP Code Phon e Number [facility] - 200 [place], [place] [address] [facility] Sodium (02/28/2018 7:58 AM CDT) athologist Signature Sodium, P 136 135 - 145 02/28/2018 [facility] mmol/L 9:11 AM [facility] Specimen Anatomical Collection Method Collection Time Receive d Time (Source) Location / / Volume Laterality Blood (Blood, 02/28/2018 7:58 AM 02/29/20 18 7:58 Venous) CDT AM CDT Kristal Galeana M.D. LAB BLOOD ADD-ON Performing Organization Address City/[facility]/ZIP Code Phon e Number [facility] [address] [place] [address] Creatinine with Estimated GFR (02/28/2018 7:58 AM CDT) athologist Signature Creatinine 1.09 0.74 - 02/28/2018 [facility] 1.35 mg/dL 9:11 AM [facility] eGFR-Black/Afri 75 >=60 02/28/2018 [facility] can Algerian mL/min/BSA 9:11 AM [facility] Comment: ----ADDITIONAL INFORMATION---- Estimated GFR calculated using the 2009 CKD_EPI creatinine equation. eGFR Non-Black/ 65 >=60 mL/min/BSA 02/28/2018 9:11 AM [facility] Algerian [facility] Comment: ----ADDITIONAL INFORMATION---- Estimated GFR calculated using the 2009 CKD_EPI creatinine equation. Specimen Anatomical Collection Method Collection Time Receive d Time (Source) Location / / Volume Laterality Blood (Blood, 02/28/2018 7:58 AM 10/15/20 18 7:58 Venous) CDT AM CDT Kristal Galeana M.D. LAB BLOOD ADD-ON Performing Organization Address City/[facility]/ZIP Code Phon e Number [facility] [address] [place] [address] (ABNORMAL) Hemoglobin A1c (02/28/2018 7:58 AM CDT) Patholo gist Method Time Signature Hemoglobin A1c, 6.7 (H) 4.0 - 5.6 02/28/2018 [facility] B % 1:36 PM CDT LABORATORIES - [facility] Comment: Hemoglobin A1c values greater [...] Address City/State/ZIP Code Phon e Number [facility] - [address] [place], [place] [address] [facility] Potassium (02/28/2018 7:58 AM CDT) P athologist Signature Potassium, P 4.3 3.6 - 5.2 02/28/2018 [facility] mmol/L 9:11 AM CDT [facility] Specimen Anatomical Collection Method Collection Time Receive d Time (Source) Location / / Volume Laterality Blood (Blood, 02/28/2018 7:58 AM 02/29/20 18 7:58 Venous) CDT AM CDT Kristal Galeana M.D. LAB BLOOD ADD-ON Performing Organization Address City/State/ZIP Code Phon e Number [facility] [address] [place] [address] documented in this encounter Visit Diagnoses Diagnosis Diabetes Mellitus Type 2 (HCC) - Primary Hypertension Essential Primary General Medical Examination Adult documented in this encounter Care Teams Human Resources Hr Representative Relationship Specialty Start Date End Date Kristal Galeana M.D. PCP - General Family Medicine 01/19/18 11/13/18 documented as of this encounter
--- OUTSIDE RECORDS SUMMARY | 2022-02-17 10:30 | XMS_ITS | Encounter Summary ---
:1940 Author Organization [facility] Address [address] [place] [address] Care Team Providers Name Role Phone Kristal Galeana M.D. Primary Care Provider Reason for Referral Outpatient (Routine) - Closed Specialty Diagnoses / Procedures Referred By Contact Refer red To Contact Orthopedic Surgery Roslyn Veliz APRN, [place] [facility] C.N[facility]P. [address] [place] [phone] Referral ID Status Reason Start Date Expiration Date Visits Requ ested Visits Authorized [id number] Closed 03/10/2018 03/10/2019 1 1 Reason for Visit Outpatient (Routine) - Closed Specialty Diagnoses / Procedures Referred By Contact Refer red To Contact Orthopedic Surgery Roslyn Veliz APRN, [place] [facility] [address] [place] [phone] Referral ID Status Reason Start Date Expiration Date Visits Requ ested Visits Authorized [id number] Closed 01/13/2018 01/13/2019 1 1 Encounter Details Date Type Department Care Team Description 03/10/2018 Procedure visit Department of Roslyn Veliz Callus Co rn Foot; Orthopedic Surgery in [place] [facility] 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 Patien t refused 10/29/2020 [...] PRESENT ILLNESS Mr. 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 PCP - General Family Medicine 01/19/18 11/13/18 documented as of this encounter
--- OUTSIDE RECORDS SUMMARY | 2022-02-17 10:30 | XMS_ITS | Encounter Summary ---
:1940 Author Organization [facility] Address [address] [place] [address] Care Team Providers Name Role Phone Elsewhere, Pcp Primary Care Provider Unavailable Encounter Details Date Type Department Care Team Description 09/21/2014 Historical Ophthalmology RST OPH Kasiaing Genet Cordero O.D. [address] [place], [place] [phone] (Wo rk) Social History [...] How often do you attend buddhist or restoration services? Patien t refused 10/29/2020 Do you belong to any clubs or organizations such as Nabil borrero buddhist groups, unions, fraternal or athletic groups, [...] with results. [facility]AS sent to [facility] and they will call you for further testing . If this occurs again, call immediately. #2 Diabetes mellitus, Type 2, no eye complications. Plan: monitor annually, emphasized the importance of good diabetic control. #3 Cataract, both eyes, not visually significant. Plan: monitor 21 Sep 2014 - sed rate within normal. KOSTAS sent to Dr. Wick. I spoke with patient - your doctor will call with the next step. Call if you have other questions or concerns. DIAGNOSIS #1 Amaurosis fugax #2 Diabetes mellitus, Type 2, no eye complications. #3 Cataract, both eyes, not visually significant. CDM Reports - [facility] Id: [id number] Status: Fnl documented in this encounter Plan of Treatment Not on filedocumented as of this encounter Visit Diagnoses Not on filedocumented in this encounter Care Teams Destaticizer Feeder Relationship Specialty Start Date End Date Elsewhere, Pcp PCP - General Internal Medicine 02/04/22 documented as of this encounter
--- OUTSIDE RECORDS SUMMARY | 2022-02-17 10:30 | XMS_ITS | Encounter Summary ---
:1940 Author Organization [facility] Address [address] [place] [address] Care Team Providers Name Role Phone Kristal [...] How often do you attend sikhism or jew services? Patien t refused 10/29/2020 Do you [...] on filedocumented in this encounter Care Teams Associate Manager Relationship Specialty Start Date End Date Kristal Galeana M.D. PCP - General Family Medicine 01/19/18 11/13/18 documented as of this encounter
--- OUTSIDE RECORDS SUMMARY | 2022-02-17 10:30 | XMS_ITS | Encounter Summary ---
:1940 Author Organization [facility] Address [address] [place] [address] Care Team Providers Name Role Phone Reuben Cavazos.M.B.S. Primary Care Provider Unavailable Reason for Visit Reason Onset Date Comments Appointment 10/12/2017 Encounter Details Date Type Department Care Team Description 10/12/2017 Clinical Communication Department of Cathy Casas, Appointment Medicine, [facility] Riddhi.M.B.SClarence [place], [place] [address] [place] [address] Social History Tobacco Use Types Packs/Day Years [...] How often do you attend amish or advent services? Patien t refused 10/29/2020 [...] place that order for him. His number [phone]. Please respond to RST ECH [facility]ASITY Scheduling pool if necessary documented in this encounter Plan of Treatment Scheduled Orders Name Type Priority Associated Diagnoses Order S hood ICS Podiatry Procedure Procedures Routine Diabetes Mellitus Type Expected: 10/12/2017 Clinic 2 ([facility]) (Approximate), Expires: 2020 documented as of this encounter Visit Diagnoses Diagnosis Diabetes Mellitus Type 2 (HCC) - Primary documented in this encounter Care Teams Steam Fitter Supervisor Maintenance Relationship Specialty Start Date End Date Reuben Cavazos B.M.B.S. PCP - General Family Medicine 11/19/14 11/12/17 documented as of this encounter
--- OUTSIDE RECORDS SUMMARY | 2022-02-17 10:30 | XMS_ITS | Encounter Summary ---
:1940 Author Organization [facility] Address [address] [place] [address] Care Team Providers Name Role Phone Kristal Galeana M.D. Primary Care Provider Encounter Details Date Type Department Care Team Description 02/28/2018 Hospital Encounter Department of Kristal Galeana Diabjacqueline es Mellitus Laboratory Medicine [place] Type 2 (HCC) in [address] [address] [phone] Social History Tobacco Use Types Packs/Day Years [...] How often do you attend protestant or pentecostal services? Patien t refused 10/29/2020 [...] CDT) athologist Signature Microalbumin 9.3 mg/L 02/28/2018 [facility] 2:38 PM CDT [facility] Comment: ----ADDITIONAL INFORMATION---- This test has been modified from the valentin hurtado's instructions. Its performance characteri stics were determined by [facility] in a manner co nsistent with CLIA requirements. This test has not bee n cleared or approved by the U.S. Food and Drug Admin istration. Creatinine 125 mg/dL 02/28/2018 2:38 PM CDT [facility] P[facility] Albumin/Creatinine 7 <17 mg/g 02/28/2018 2:38 PM CD T [facility] PUS Specimen Anatomical Collection Method Collection Time Receive d Time (Source) Location / / Volume Laterality Urine (Urine, 02/28/2018 8:40 AM 02/29/20 18 1:31 Clean Catch) CDT PM CDT Kristal Galeana M.D. LAB URINE ORDERABLES Performing Organization Address City/State/ZIP Code Phon e Number [facility] - [address] documented in this encounter Visit Diagnoses Diagnosis Diabetes Mellitus Type 2 (HCC) documented in this encounter Care Teams Hvac R Instructor Relationship Specialty Start Date End Date Kristal Galeana M.D. PCP - General Family Medicine 01/19/18 11/13/18 documented as of this encounter
--- OUTSIDE RECORDS SUMMARY | 2022-02-17 10:30 | XMS_ITS | Encounter Summary ---
:1940 Author Organization [facility] Address [address] [place] [address] Care Team Providers Name Role Phone Elsewhere, Pcp Primary Care Provider Unavailable Encounter Details Date Type Department Care Team Description 11/11/2015 Historical Ophthalmology RST OPH Dharmesh Lopez O.D. [address] [place], [place] [address] (Wo rk) Social History [...] How often do you attend islam or methodist services? Patien t refused 10/29/2020 Do you belong to any clubs or organizations such as Not jelani borrero islam groups, unions, fraternal or athletic [...] visually significant. CDM Reports - [facility] Id: [id number] Status: Fnl documented in this encounter Plan of Treatment Not on filedocumented as of this encounter Visit Diagnoses Not on filedocumented in this encounter Care Teams Major Donor Coordinator Relationship Specialty Start Date End Date Elsewhere, Pcp PCP - General Internal Medicine 02/04/22 documented as of this encounter
--- OUTSIDE RECORDS SUMMARY | 2022-02-17 10:30 | XMS_ITS | Encounter Summary ---
:1940 Author Organization [facility] Address [address] [place] [address] Care Team Providers Name Role Phone Kristal Galeana M.D. Primary Care Provider Reason for Referral Outpatient (Routine) - Closed Specialty Diagnoses / Procedures Referred By Contact Refer red To Contact Family Medicine Kristal Galeana M.D. [address] [place] [address] Referral ID Status Reason Start Date Expiration Date Visits Requ ested Visits Authorized [id number] Closed 09/22/2018 09/22/2019 1 1 Reason for Visit Reason Comments Diabetes Outpatient (Routine) - Closed Specialty Diagnoses / Procedures Referred By Contact Refer red To Contact Family Medicine Diagnoses Diabetes Mellitus Type 2 (HCC) Med Alvarez Kaleva Sonya Gupta [address] [place] [address] Referral ID Status Reason Start Date Expiration Date Visits Requ ested Visits Authorized [id number] Closed 03/04/2018 03/04/2019 1 1 Encounter Details Date Type Department Care Team Description 09/22/2018 Office Visit Department of Kristal Ramon Diabe gil 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 Diabetes Mellitus Type 2 (HCC); Clinic [address] Hyperte nsion Essential Primary; [place], [place] [address] [facility] [facility]; [address] [place] [phone] Social History Tobacco Use Types Packs/Day Years [...] How often do you attend holiness or roman catholic services? Patien t refused [...] tonumbness/tingling or skin concerns. He sees a quality technician regularly. All immunizations up to date. #3 [...] face that we would have him try zwow-vud-zjidtnj hydrocortisone cream to help with the irritation on the face but only for a week to prevent skin thinning. This was written out for him on his AVS. Future Appointments Date Time Provider Department Center 10/03/2018 2:30 PM Roslyn Veliz APRN, C.N.P. ORS LINDA Rodas documented in this encounter Plan of Treatment Scheduled Referrals Name Type Priority Associated Diagnoses Order S [facility] Outpatient Referral Routine Expec margoth: office visit 03/25/2019 (clinic) - Self (Approximate ), Expires: 09/22/2021 documented as of this encounter Results (ABNORMAL) Microalbumin, Random, Urine (03/08/2019 8:47 AM CDT) P athologist Signature Microalbumin 13.2 mg/L 03/08/2019 POWER 1:44 PM CDT Comment: ----ADDITIONAL INFORMATION---- This test has been modified from the valentin hurtado's instructions. Its performance characteri stics were determined by [facility] in a manner co nsistent with [...] e Number [facility] - [address] [place] [address] [facility] PSA (Prostate-Specific Antigen), Diagnostic (03/08/2019 8:40 AM CDT) athologist Signature Prostate-Specif 0.76 <=6.5 ng/mL 03/08/2019 [facility] ic Ag 2:17 PM CDT Comment: ----ADDITIONAL INFORMATION---- The testing method is an electrochemilum inescence assay manufactured by [employer] and performed on the Modular or [...] City/State/ZIP Code Phon e Number [facility] [address] [address] [facility] (ABNORMAL) Hemoglobin A1c (03/08/2019 8:40 AM CDT) athologist Signature Hemoglobin A1c, 6.6 (H) 4.0 - 5.6 03/08/2019 [facility] B % 12:46 PM CDT Comment: [...] Organization Address City/State/ZIP Code Phon e Number [facility] [address] [address] [facility] [address] documented in this encounter Visit Diagnoses Diagnosis Diabetes Mellitus Type 2 With Diabetic N europathy (HCC) - Primary Diabetes Mellitus Type 2 (HCC) Hypertension Essential Primary [facility] [place] [facility] Hyperlipidemia documented in this encounter Care Teams Designer Architect Relationship Specialty Start Date End Date Kristal Galeana M.D. PCP - General Family Medicine 01/19/18 11/13/18 documented as of this encounter
--- OUTSIDE RECORDS SUMMARY | 2022-02-17 10:30 | XMS_ITS | Encounter Summary ---
:1940 Author Organization [facility] Address [address] [place] [address] Care Team Providers Name Role Phone Kristal Galeana M.D. Primary Care Provider Encounter Details Date Type Department Care Team Description 09/13/2018 Clinical Communication Department of Kushal Casas, Medicine, [facility] [place] [address] [place] [address] [facility] [address] [place] [address] Social History Tobacco Use Types Packs/Day Years [...] How often do you attend mu-ism or zoroastrian services? Patien t refused 10/29/2020 [...] How to Create a patientOnline Service Account Scary Mommy [phone] which has the helpline # for patients [...] on filedocumented in this encounter Care Teams Laborer [employer] Relationship Specialty Start Date End Date Kervin, Kristal M, M.D. PCP - General Family Medicine 01/19/18 11/13/18 documented as of this encounter
--- OUTSIDE RECORDS SUMMARY | 2022-02-17 10:30 | XMS_ITS | Encounter Summary ---
:1940 Author Organization [facility] Address [address] [place] [address] Care Team Providers Name Role Phone Kristal Galeana M.D. Primary Care Provider Encounter Details Date Type Department Care Team Description 09/02/2018 Hospital Encounter Department of Med Alvarez Mellitus Type 2 (HCC); Laboratory Medicine Alonso Gardner Hyperlipidemia; in [address] Hypertension Essential Primary [place], [place] 411 [facility] [address] [place], [place] [phone] (Work) [phone] Social History Tobacco Use Types Packs/Day Years [...] How often do you attend quaker or taoist services? Patien t refused 10/29/2020 [...] Signature Creatinine 1.06 0.74 - 09/02/2018 [facility] 1.35 mg/dL 9:02 AM T [facility] eGFR-Black/Afri 77 >=60 09/02/2018 [facility] can Samoan mL/min/BSA 9:02 AM T [facility] Comment: ----ADDITIONAL INFORMATION---- Estimated GFR calculated using the 2009 CKD_EPI creatinine equation. eGFR Non-Black/ 66 >=60 mL/min/BSA 09/02/2018 9:02 AM [facility] Comment: ----ADDITIONAL INFORMATION---- Estimated GFR calculated using the 2009 CKD_EPI creatinine equation. Specimen Anatomical Collection Method Collection Time Receive d Time (Source) Location / / Volume Laterality Blood (Blood, 09/02/2018 8:15 AM 09/03/19 8:15 Venous) CDT AM CDT Med Alvarez M.D. LAB BLOOD ADD-ON Performing Organization Address City/[facility] Code Phon e Number [address] [address] Sodium (09/02/2018 8:15 AM CDT) athologist Signature Sodium, P 136 135 - 145 09/02/2018 [facility] mmol/L 9:02 AM CDT [facility] Specimen Anatomical Collection Method Collection Time Receive d Time (Source) Location / / Volume Laterality Blood (Blood, 09/02/2018 8:15 AM 09/03/19 8:15 Venous) CDT AM CDT Med Alvarez M.D. LAB BLOOD ADD-ON Performing Organization Address City/[facility]/ZIP [facility] Phon e Number [address] [address] Potassium (09/02/2018 8:15 AM CDT) athologist Signature Potassium, P 4.4 3.6 - 5.2 09/02/2018 [facility] mmol/L 9:02 AM CDT [facility] Specimen Anatomical Collection Method Collection Time Receive d Time (Source) Location / / Volume Laterality Blood (Blood, 09/02/2018 8:15 AM 09/03/19 8:15 Venous) CDT AM CDT Med Alvarez M.D. LAB BLOOD ADD-ON Performing Organization Address City/[facility] Phon e Number [address] [address] Lipid Panel (09/02/2018 8:15 AM CDT) athologist Signature Cholesterol, 112 mg/dL 09/02/2018 [facility] Total 1:24 PM CDT [facility] Comment: ----REFERENCE VALUE---- Desirable: < 200 Borderline high: 200 - 239 High: > or = 240 Triglycerides 95 mg/dL 09/02/2018 1:24 PM CDT [facility] Comment: ----REFERENCE VALUE---- Normal: <150 Borderline high: 150-199 High: 200-499 Very high: > or =500 Cholesterol, HDL, S 49 >=40 mg/dL 09/02/2018 1:24 PM CDT [facility] Calculated LDL 44 mg/dL 09/02/2018 1:24 PM CDT [facility] Comment: ----REFERENCE VALUE---- Desirable: <100 Above Desirable: 100-129 Borderline high: 130-159 High: 160-189 Very high: > or =190 Cholesterol, Non-HDL, 63 mg/dL 09/02/2018 1:24 PM CDT [facility] Comment: ----REFERENCE VALUE---- Desirable: <130 Above Desirable: 130-159 Borderline high: 160-189 High: 190-219 Very high: > or =220 Specimen Anatomical Collection Method Collection Time Receive d Time (Source) Location / / Volume Laterality Blood (Blood, 09/02/2018 8:15 AM 09/03/19 Venous) CDT 12:41 PM CDT Med Alvarez M.D. LAB BLOOD ADD-ON Performing Organization Address City/[facility]/ZIP Code Phon e Number [facility] - [address] (ABNORMAL) Hemoglobin A1c (09/02/2018 8:15 AM CDT) [facility] Method Time Signature Hemoglobin A1c, 6.7 (H) 4.0 - 5.6 09/02/2018 [facility] B % 3:47 PM CDT [facility] Comment: Hemoglobin A1c values greater than or [...] M.D. LAB BLOOD ADD-ON Performing Organization Address City/[facility]/ZIP Code Phon e Number [facility] - [address] documented in this encounter Visit Diagnoses Diagnosis Diabetes Mellitus Type 2 (HCC) Hyperlipidemia Hypertension Essential Primary documented in this encounter Care Teams Older Worker Specialist Relationship Specialty Start Date End Date Kristal Galeana M.D. PCP - General Family Medicine 01/19/18 11/13/18 documented as of this encounter
--- OUTSIDE RECORDS SUMMARY | 2022-02-17 10:30 | XMS_ITS | Encounter Summary ---
:1940 Author Organization [facility] Address [address] [place] [address] Care Team Providers Name Role Phone Kristal Galeana M.D. Primary Care Provider Reason for Referral Outpatient (Routine) - Closed Specialty Diagnoses / Procedures Referred By Contact Refer red To Contact Orthopedic Surgery Roslyn Veliz APRN, [place] C.N.PClarence [address] [place] [address] Referral ID Status Reason Start Date Expiration Date Visits Requ ested Visits Authorized [id number] Closed 10/03/2018 10/03/2019 1 1 Reason for Visit Outpatient (Routine) - Closed Specialty Diagnoses / Procedures Referred By Contact Refer red To Contact Orthopedic Surgery Roslyn Veliz APRN, [place] C.N.P. [address] [place] [phone] Referral ID Status Reason Start Date Expiration Date Visits Requ ested Visits Authorized [id number] Closed 09/05/2018 09/05/2019 1 1 Encounter Details Date Type Department Care Team Description 10/03/2018 Procedure visit Department of Roslyn Veliz, Hypertrop hied Nail; Orthopedic Surgery LAEN, C.N.P. Diabetes Mellitus Type 2 With Diabetic N europathy (HCC); in [address] Callus [place], [place] [address] [place] [address] [place], [place] [phone] [address] (Work) [phone] Social History Tobacco Use Types Packs/Day Years [...] How often do you attend gnosticism or quaker services? Patien t refused 10/29/2020 [...] Mr. Vazquez presents to the [facility] with calluses on bilateral feet plantar surface. He states that he has his toenails taking care of in a salon and that they also work on his calluses. The patient wears [employer] shoes with zizz-hcu-crzqsbo inserts. He has had custom inserts from [employer], but states that these were more expensive and seem to work better. He and his return from [place] a few weeks ago. He states he [...] Skin temperature changes: Bilateral feet are warm [place]/calluses: Hyperkeratotic buildup over the right 5th and [...] 2 With Diabetic N europathy (HCC) Call[place] documented in this encounter Care Teams Manager Of Purchasing Relationship Specialty Start Date End Date Kristal Galeana M.D. PCP - General Family Medicine 01/19/18 11/13/18 documented as of this encounter
--- OUTSIDE RECORDS SUMMARY | 2022-02-17 10:30 | XMS_ITS | Encounter Summary ---
:1940 Author Organization [facility] Address [address] [place] [address] Care Team Providers Name Role Phone Kristal Galeana M.D. Primary Care Provider Encounter Details Date Type Department Care Team Description 01/24/2018 Orders Only Department of Family Kristal Galeana M.D. Medicine, [address] [place] [address] [facility] [address] [phone] Social History Tobacco Use Types Packs/Day Years [...] How often do you attend sabianist or latter-day services? Patien t refused 10/29/2020 [...] on filedocumented in this encounter Care Teams Training Technician Relationship Specialty Start Date End Date Kristal Galeana M.D. PCP - General Family Medicine 01/19/18 11/13/18 documented as of this encounter
--- OUTSIDE RECORDS SUMMARY | 2022-02-17 10:30 | XMS_ITS | Encounter Summary ---
:1940 Author Organization [facility] Address [address] [place] [address] Care Team Providers Name Role Phone Kristal Galeana M.D. Primary Care Provider Encounter Details Date Type Department Care Team Description 02/28/2018 Hospital Encounter Department of Reuben Cavazos Essential Primary; Laboratory Medicine P, B.M.[facility] Diabetes Mellitus Type 2 (HCC); in [place], [place] General Medical Examination Adult [address] [place] [address] Social History Tobacco Use Types [...] How often do you attend mormon or religion services? Patien t refused 10/29/2020 [...] athologist Signature Prostate-Speci 0.98 <=6.5 02/28/2018 [facility] fic Ag ng/mL 2:29 PM CDT LABORATORIES - [facility] Comment: ----ADDITIONAL INFORMATION---- The testing method [...] Address City/State/ZIP Code Phon e Number [facility] - [address] [place], [place] [address] [facility] Sodium (02/28/2018 7:58 AM CDT) athologist Signature Sodium, P 136 135 - 145 02/28/2018 [facility] mmol/L 9:11 AM [facility] Specimen Anatomical Collection Method Collection Time Receive d Time (Source) Location / / Volume Laterality Blood (Blood, 02/28/2018 7:58 AM 02/29/20 7:58 Venous) CDT AM CDT Kristal Galeana M.D. LAB BLOOD ADD-ON Performing Organization Address [facility] Code Phon e Number [facility] [address] [place] [address] Creatinine with Estimated GFR (02/28/2018 7:58 AM CDT) athologist Signature Creatinine 1.09 0.74 - 02/28/2018 [facility] 1.35 mg/dL 9:11 AM [facility] eGFR-Black/Afri 75 >=60 02/28/2018 [facility] can Prydeinig mL/min/BSA 9:11 AM [facility] Comment: ----ADDITIONAL INFORMATION---- Estimated GFR calculated using the 2009 CKD_EPI creatinine equation. eGFR Non-Black/ 65 >=60 mL/min/BSA 02/28/2018 9:11 AM [facility] Comment: ----ADDITIONAL INFORMATION---- Estimated GFR calculated using the 2009 CKD_EPI creatinine equation. Specimen Anatomical Collection Method Collection Time Receive d Time (Source) Location / / Volume Laterality Blood (Blood, 02/28/2018 7:58 AM 02/29/20 18 7:58 Venous) CDT AM CDT Kristal Galeana M.D. LAB BLOOD ADD-ON Performing Organization Address City/[facility]/ZIP Code Phon e Number [facility] [address] [place] [address] (ABNORMAL) Hemoglobin A1c (02/28/2018 7:58 AM CDT) [facility] Method Time Signature Hemoglobin A1c, 6.7 (H) 4.0 - 5.6 02/28/2018 [facility] B % 1:36 PM CDT [facility]ORATORIES - [facility] Comment: Hemoglobin A1c values greater than [...] Address City/State/ZIP Code Phon e Number [facility] - [address] [facility] [address] [place], [place] [address] [facility] Potassium (02/28/2018 7:58 AM CDT) P athologist Signature Potassium, P 4.3 3.6 - 5.2 02/28/2018 [facility] mmol/L 9:11 AM CDT [facility] Specimen Anatomical Collection Method Collection Time Receive d Time (Source) Location / / Volume Laterality Blood (Blood, 02/28/2018 7:58 AM 02/29/20 18 7:58 Venous) CDT AM CDT Kristal Galeana M.D. LAB BLOOD ADD-ON Performing Organization Address City/State/ZIP Code Phon e Number [facility] [address] [place] [address] documented in this encounter Visit Diagnoses Diagnosis Hypertension Essential Primary Diabetes Mellitus Type 2 (HCC) General Medical Examination Adult documented in this encounter Care Teams Field Kiln Burner Relationship Specialty Start Date End Date Kristal Galeana M.D. PCP - General Family Medicine 01/19/18 11/13/18 documented as of this encounter
--- OUTSIDE RECORDS SUMMARY | 2022-02-17 10:30 | XMS_ITS | Encounter Summary ---
:1940 Author Organization [facility] Address [address] [place] [address] Care Team Providers Name Role Phone Bryce Monahan D.O. Primary Care Provider [phone] Reason for Visit Outpatient (Routine) - Closed Specialty Diagnoses / Procedures Referred By Contact Refer red To Contact Family Medicine Jamarcus Galeana M.D. [address] [place] [address] Referral ID Status Reason Start Date Expiration Date Visits Requ ested Visits Authorized [id number] Closed 12/01/2017 12/01/2018 1 1 Encounter Details Date Type Department Care Team Description 12/01/2017 Office Visit Department of Family Jamarcus Galeana Lesio n Skin Chest (Primary Dx); Medicine, [facility] Alonso [facility] [address] [place] [address] 411 [facility] [phone] [place] [address] (Work) [phone] Social History Tobacco Use Types Packs/Day Years [...] How often do you attend confucianist or presybeterian services? Patien t refused 10/29/2020 [...] with the patient and/or decision maker.: Yes [place] protocol: All relevant documentation and testing were [...] with the patient and/or decision maker.: yes [place] protocol: All relevant documentation and testing were [...] Procedure Name Priority Date/Time Associated Comments Diagnosis NM RMVL SKIN TAGS <=15 Routine 12/01/2017 9:00 Tag Skin Re sults for this PM CDT procedure are i n the results section. NM BX SKIN/SUBQ TISS 1ST Routine 12/01/2017 9:00 Lesion Skin C hest Results for this LESION PM CDT procedure are i n the results section. DERMATOPATHOLOGY Routine 12/01/2017 5:06 Lesion Skin Chest Res ults for this PM CDT procedure are i n the results section. documented in this encounter Results NM RMVL SKIN TAGS <=15 (12/01/2017 9:00 PM [...] the patient and/or decision maker.: yes ?? [place] protocol: ??All relevant documentation and testin g [...] Code Phon e Number MMODAL MMODAL NA NM BX SKIN/SUBQ TISS 1ST LESION (12/01/2017 9:00 [...] the patient and/or decision maker.: Yes ?? [place] protocol: ??All relevant documentation and testin g [...] Component Value Ref Test Analysis Performed At [facility] Range Method Time Signature Gross Description Received in formalin labeled with the patient's n shad and 12/06/2017 [facility] assigned specimen ID number [id number] and labeled as 11:02 AM LABORATORIES - right upper chest is a 0.7 x 0.5 x 0.1 cm pak-white skin T [facility] shave biopsy. ??There is a 0.5 x 0.4 cm pak-white pigmented [facility]AMPUS lesion peripherally located on the skin surface. ??Specimen is bisected and submitted entirely in cassette A1. Grossed by ABRAHAM. Report Tad Moreno 12/06/2017 [facility] electronically Alonso Early 11:02 AM LABORATORIES - signed by [facility] 12/06/2017 [facility] 11:02 AM LABORATORIES - [facility] Interpretation FINAL DIAGNOSIS 12/06/2017 [facility]IMBER[facility] A. ??Right upper chest, Skin shave biopsy: ??Seborrheic 11:02 AM LABORATORIES - keratosis [facility] Specimen Anatomical Collection Method Collection Time Receive d Time (Source) Location / / Volume Laterality Varies 12/01/2017 5:06 PM 8 6:46 CDT PM CDT Narrative This result has an attachment that is no t available. Jamarcus Galeana M.D. LAB PATH DERM ORDERABLES Performing Organization Address City/State/ZIP Code Phon e Number [facility] - [address] [place], [place] [address] [facility] documented in this encounter Visit Diagnoses Diagnosis Lesion Skin Chest - Primary Tag Skin documented in this encounter Care Teams Manager Intermediate Relationship Specialty Start Date End Date Bryce Monahan D.O. PCP - General Family Medicine 11/13/17 01/18/18 [address] [place] [address] documented as of this encounter
--- OUTSIDE RECORDS SUMMARY | 2022-02-17 10:31 | XMS_ITS | Encounter Summary ---
:1940 Author Organization [facility] Address [address] [place] [address] Care Team Providers Name Role Phone Elsewhere, Pcp Primary Care Provider Unavailable Encounter Details Date Type Department Care Team Description 12/05/2012 Historical Ophthalmology RST OPH StalboHailee ledesma O.D. [address] [place], [place] [phone] (Wo rk) Social History [...] How often do you attend muslim or confucianism services? Patien t refused 10/29/2020 [...] both eyes CDM Reports - [facility] Id: [id number] Status: Fnl documented in this encounter Plan of Treatment Not on filedocumented as of this encounter Visit Diagnoses Not on filedocumented in this encounter Care Teams Engine Specialist Relationship Specialty Start Date End Date Elsewhere, Pcp PCP - General Internal Medicine 02/04/22 documented as of this encounter
--- OUTSIDE RECORDS SUMMARY | 2022-02-17 10:31 | XMS_ITS | Encounter Summary ---
:1940 Author Organization [facility] Address [address] [place] [address] Care Team Providers Name Role Phone Unavailable [...] How often do you attend zoroastrian or christian services? Elizabeth t refused 10/29/2020 Do you [...] Results Glucose, POCT (12/27/2013 12:13 PM CDT) [facility] Method Time Signature Last Intake 3-4 hours [facility] [place] Glucose, 136 70 - 140 [facility] POCT, B MG/DL LABORATORIES - [facility] Sample Site, Capillary [facility] Blood Gas, LABORATORIES - POCT [facility] Specimen Anatomical Collection Method Collection Time Receive d Time (Source) Location / / Volume Laterality 12/27/2013 12:13 12/27/2013 PM CDT 12:13 PM CDT Historical Provider LAB POCT ORDERABLES-MANUAL Performing Organization Address City/[facility]/ZIP Code Phon e Number [facility] - [address] [place] [address] [facility] Glucose, POCT (12/27/2013 6:21 AM CDT) P athologist Signature Glucose, POCT, 131 70 - 140 [facility] B MG/DL LABORATORIES - [facility] Specimen Anatomical Collection Method Collection Time Receive d Time (Source) Location / / Volume Laterality 12/27/2013 6:21 AM 4 6:21 CDT AM CDT Historical Provider LAB POCT ORDERABLES-MANUAL Performing Organization Address City/[facility] Phon e Number [facility] - [address] [place] [phone] 05 [facility] (ABNORMAL) Glucose, POCT (12/26/2013 9:46 PM CDT) Patholo gist Method Time Signature Glucose, 163 (H) 70 - 140 [facility] POCT, B MG/DL LABORATORIES - [facility] Sample Site, Capillary [facility] Blood Gas, LABORATORIES - POCT [facility] Last Intake 3-4 hours [facility] - [facility] Specimen Anatomical Collection Method Collection Time Receive d Time (Source) Location / / Volume Laterality 12/26/2013 9:46 PM 4 9:46 CDT PM CDT Historical Provider LAB POCT ORDERABLES-MANUAL Performing Organization Address City/[facility] Phon e Number [facility] - [address] [address] [facility] (ABNORMAL) Glucose, POCT (12/26/2013 5:12 PM CDT) Patholo gist Method Time Signature Glucose, POCT, 163 (H) 70 - 140 [facility] B MG/DL [facility]ATORIES - [facility] Specimen Anatomical Collection Method Collection Time Receive d Time (Source) Location / / Volume Laterality 12/26/2013 5:12 PM 4 5:12 CDT PM CDT Historical Provider LAB POCT ORDERABLES-MANUAL Performing Organization Address City/[facility]/ZIP Code Phon e Number [facility] - [address] [address] [facility] (ABNORMAL) Glucose, POCT (12/26/2013 12:02 PM CDT) [facility] Method Time Signature Glucose, 147 (H) 70 - 140 [facility] POCT, B MG/DL LABORATORIES - [facility] Sample Site, Capillary [facility] Blood Gas, LABORATORIES - POCT [facility] Last Intake 3-4 hours [facility] [place] Specimen Anatomical Collection Method Collection Time Receive d Time (Source) Location / / Volume Laterality 12/26/2013 12:02 12/26/2013 PM CDT 12:02 PM CDT Historical Provider LAB POCT ORDERABLES-MANUAL Performing Organization Address City/[facility]/ZIP Code Phon e Number [facility] - [address] [address] [facility] Glucose, POCT (12/26/2013 6:20 AM CDT) P athologist Signature Glucose, POCT, 115 70 - 140 [facility] B MG/DL [facility] - [facility] Specimen Anatomical Collection Method Collection Time Receive d Time (Source) Location / / Volume Laterality 12/26/2013 6:20 AM 4 6:20 CDT AM CDT Historical Provider LAB POCT ORDERABLES-MANUAL Performing Organization Address City/[facility]/ZIP Code Phon e Number [facility] - [address] [address] [facility] (ABNORMAL) Hemoglobin A1c (12/26/2013 4:18 AM CDT) [facility] gist Method Time Signature Hemoglobin A1c, 6.4 (H) 4.0 - 6.0 [facility] B % LABORATORIES - [facility] Specimen Anatomical Collection Method Collection Time Receive d Time (Source) Location / / Volume Laterality 12/26/2013 4:18 AM 4 4:18 CDT AM CDT Rene Warren P.A.-C. LAB BLOOD ADD-ON Performing Organization Address City/[facility]/ZIP [facility] [place] Number [facility] - [address] [address] [facility] (ABNORMAL) CBC without Differential (12/26/2013 4:18 AM CDT) Patholo gist Method Time Signature Erythrocytes 4.38 4.32 - [facility] 5.72 LABORATORIES - X10(12)/L [facility] MCV 85.2 81.2 - [facility] 95.1 FL LABORATORIES - [facility] Leukocytes 7.7 3.5 - [facility] 10.5 LABORATORIES - X10(9)/L [facility] Hemoglobin 12.9 (L) 13.5 - [facility] 17.5 G/DL LABORATORIES - [facility] Hematocrit 37.3 (L) 38.8 - [facility] 50.0 % LABORATORIES - [facility] RBC Distrib 13.5 11.8 - [facility] Width 15.6 % [facility] - [facility] Platelet Count 180 150 - 450 [facility] X10(9)/L [facility] - [facility] Specimen Anatomical Collection Method Collection Time Receive d Time (Source) Location / / Volume Laterality 12/26/2013 4:18 AM 4 4:18 CDT AM CDT Rene Warren P.A.-C. LAB BLOOD ADD-ON Performing Organization Address City/State/ZIP Code Phon e Number [facility] - [address] [place], [place] [address] [facility] Electrolyte (Chem 4) Panel (12/26/2013 4:18 AM CDT) Analysis Performed At [facility] logist Time Signature Chloride, S 100 98 - 107 [facility] MMOL/L [facility] - [facility] HX Bicarbonate, 25 22 - 29 [facility] P/S MMOL/L LABORATORIES - [facility] Anion Gap 12 7 - 15 [facility] - [facility] Glucose, S 108 70 - 140 [facility] MG/DL [facility] Sodium, S 137 135 - 145 [facility] MMOL/L [facility] - [facility] Potassium, S 4.0 3.6 - 5.2 [facility] MMOL/L [facility] - [facility] Creatinine 1.0 0.8 - 1.3 [facility] MG/DL [facility] - [facility] BUN (Blood Urea 13 8 - 24 [facility] Nitrogen), S MG/DL [facility] - [facility] Specimen Anatomical Collection Method Collection Time Receive d Time (Source) Location / / Volume Laterality 12/26/2013 4:18 AM 4 4:18 CDT AM CDT Rene Warren P.A.-C. LAB BLOOD ADD-ON Performing Organization Address City/[facility]/ZIP Code Phon e Number [facility] - [address] [phone] [facility] (ABNORMAL) Glucose, POCT (12/25/2013 9:56 PM CDT) [facility] Method Time Signature Glucose, 170 (H) 70 - 140 [facility] POCT, B MG/DL LABORATORIES - [facility] Sample Site, Capillary [facility] Blood Gas, LABORATORIES - POCT [facility] Last Intake 3-4 hours [facility] [place] Specimen Anatomical Collection Method Collection Time Receive d Time (Source) Location / / Volume Laterality 12/25/2013 9:56 PM 4 9:56 CDT PM CDT Historical Provider LAB POCT ORDERABLES-MANUAL Performing Organization Address City/[facility]/ZIP [facility] [place] Number [facility] - [address] [phone] [facility] Glucose, POCT (12/25/2013 5:14 PM CDT) [facility] Method [place] Signature Glucose, 113 70 - 140 [facility] POCT, B MG/DL LABORATORIES - [facility] Sample Site, Capillary [facility] Blood Gas, LABORATORIES - POCT [facility] Last Intake 2-3 hours [facility] [place] Specimen Anatomical Collection Method Collection Time Receive d Time (Source) Location / / Volume Laterality 12/25/2013 5:14 PM 4 5:14 CDT PM CDT Historical Provider LAB POCT ORDERABLES-MANUAL Performing Organization Address City/[facility]/ZIP [facility] [place] Phon e Number [facility] - [address] [address] [facility] Glucose, POCT (12/25/2013 11:51 AM CDT) [facility] Method Time Signature Glucose, 129 70 - 140 [facility] POCT, B MG/DL LABORATORIES - [facility] Sample Site, Capillary [facility] Blood Gas, LABORATORIES - POCT [facility] Last Intake NPO [facility] [place] Specimen Anatomical Collection Method Collection Time Receive d Time (Source) Location / / Volume Laterality 12/25/2013 11:51 12/25/2013 AM CDT 11:51 AM CDT Historical Provider LAB POCT ORDERABLES-MANUAL Performing Organization Address City/State/ZIP Code Phon e Number [facility] - [address] [place], [place] [address] [facility] DX Knee 2 Views (12/25/2013 10:53 AM [...] Signature Glucose, POCT, 124 70 - 140 [facility] B MG/DL LABORATORIES - [facility] Specimen Anatomical Collection Method Collection Time Receive d Time (Source) Location / / Volume Laterality 12/25/2013 10:46 12/25/2013 AM CDT 10:46 AM CDT Historical Provider LAB POCT ORDERABLES-MANUAL Performing Organization Address City/State/ZIP Code Phon e Number [facility] - [address] [place], [place] [address] [facility] Glucose, POCT (12/25/2013 9:20 AM CDT) [facility] Method Time Signature Glucose, 124 70 - 140 [facility] POCT, B MG/DL LABORATORIES - [facility] Sample Site, Capillary [facility] Blood Gas, LABORATORIES - POCT [facility] Specimen Anatomical Collection Method Collection Time Receive d Time (Source) Location / / Volume Laterality 12/25/2013 9:20 AM 4 9:20 CDT AM CDT Historical Provider LAB POCT ORDERABLES-MANUAL Performing Organization Address City/State/ZIP Code Phon e Number [facility] - [address] [place], [place] [address] [facility] Glucose, POCT (12/25/2013 5:48 AM CDT) [facility] Method Time Signature Glucose, 120 70 - 140 [facility] POCT, B MG/DL LABORATORIES - [facility] Sample Site, Capillary [facility] Blood Gas, LABORATORIES - POCT [facility] Last Intake NPO [facility]IES - [facility] Specimen Anatomical Collection Method Collection Time Receive d Time (Source) Location / / Volume Laterality 12/25/2013 5:48 AM 4 5:48 CDT AM CDT Historical Provider LAB POCT ORDERABLES-MANUAL Performing Organization Address City/State/ZIP Code Phon e Number [facility] - [address] [place], [place] [address] [facility] documented in this encounter Visit Diagnoses Not on filedocumented in this encounter
--- OUTSIDE RECORDS SUMMARY | 2022-02-17 10:31 | XMS_ITS | Encounter Summary ---
:1940 Author Organization [facility] Address [address] [place] [address] Care Team Providers Name Role Phone Elsewhere, Pcp Primary Care Provider Unavailable Encounter Details Date Type Department Care Team Description 01/18/2014 Historical Ophthalmology RST OPH Dharmesh Lopez O.D. [address] [place], [place] [address] (Wo rk) Social History [...] How often do you attend taoist or mandaeism services? Patien t refused 10/29/2020 [...] the morning. Glucose 103 on 12/20/13 and [id number] 6.4 on 12/26/13. Patient reports vision good [...] error (hyperopic astigmatism, presbyopia). CDM Reports - EYETrunk Show Id: [id number] Status: Fnl documented in this encounter Plan of Treatment Not on filedocumented as of this encounter Visit Diagnoses Not on filedocumented in this encounter Care Teams Pig Farm Manager Relationship Specialty Start Date End Date Elsewhere, Pcp PCP - General Internal Medicine 02/04/22 documented as of this encounter
--- OUTSIDE RECORDS SUMMARY | 2022-02-17 10:31 | XMS_ITS | Encounter Summary ---
:1940 Author Organization [facility] Address [address] [place] [address] Care Team Providers Name Role Phone Unavailable Primary Care Provider Unavailable Encounter Details Date Type Department Care Team Description 12/21/2013 Hospital Encounter HX NO MAPPING Rene Warren P.A.-C. [address] [place], [place] [phone] (Wo rk) Social History [...] How often do you attend taoist or oriental orthodox services? Patien t refused [...]
--- OUTSIDE RECORDS SUMMARY | 2022-02-17 10:31 | XMS_ITS | Encounter Summary ---
:1940 Author Organization [facility] Address [address] [place] [address] Care Team Providers Name Role Phone Unavailable [...] do you attend quaker or christian services? Patien t refused 10/29/2020 [...]
--- OUTSIDE RECORDS SUMMARY | 2022-02-17 10:31 | XMS_ITS | Encounter Summary ---
:1940 Author Organization [facility] Address [address] [place] [address] Care Team Providers Name Role Phone Elsewhere, Pcp Primary Care Provider Unavailable Encounter Details Date Type Department Care Team Description 10/30/2010 Historical Ophthalmology RST OPH Shabbir Rosario M.D. [address] [place], [place] [phone] (Wo rk) Social History [...] How often do you attend zoroastrianism or zoroastrianism services? Patien t refused 10/29/2020 [...] both eyes CDM Reports - EYEGEN Id: [id number] Status: Fnl documented in this encounter Plan of Treatment Not on filedocumented as of this encounter Visit Diagnoses Not on filedocumented in this encounter Care Teams Software Sales Representative Relationship Specialty Start Date End Date Elsewhere, Pcp PCP - General Internal Medicine 02/04/22 documented as of this encounter
--- OUTSIDE RECORDS SUMMARY | 2022-02-17 10:31 | XMS_ITS | Encounter Summary ---
:1940 Author Organization [facility] Address [address] [place] [address] Care Team Providers Name Role Phone Unavailable [...] 10/29/2020 relatives? How often do you attend pentecostal or mandaen services? Patien t refused 10/29/2020 Do you belong to any clubs or organizations such as Nabil borrero pentecostal groups, unions, fraternal or athletic groups, or [...]
--- OUTSIDE RECORDS SUMMARY | 2022-02-17 10:31 | XMS_ITS | Encounter Summary ---
:[address] [facility] Address [address] [place] [address] Care Team Providers Name Role Phone Unavailable [...] How often do you attend amish or alevism services? Patien t refused 10/29/2020 Do you belong to any clubs or organizations such as Not jelani borrero amish groups, unions, fraternal or athletic [...] Results Glucose, POCT (09/12/2013 5:43 AM CDT) [facility] gist Method Time Signature Last Intake 3-4 hours [facility] Glucose, 132 70 - 140 [facility] POCT, B MG/DL LABORATORIES - [facility] Sample Site, Capillary [facility] Blood Gas, LABORATORIES - POCT [facility] Specimen Anatomical Collection Method Collection Time Receive d Time (Source) Location / / Volume Laterality 09/12/2013 5:43 AM 4 5:43 CDT AM CDT Historical Provider LAB POCT ORDERABLES-MANUAL Performing Organization Address City/State/ZIP Code Phon e Number [facility] - [address] [place], [place] [address] [facility] (ABNORMAL) Glucose, POCT (09/11/2013 10:14 PM CDT) [facility]ist Method Time Signature Last Intake 3-4 hours [facility] Glucose, 159 (H) 70 - 140 [facility] POCT, B MG/DL LABORATORIES - [facility] Sample Site, Capillary [facility] Blood Gas, LABORATORIES - POCT [facility] Specimen Anatomical Collection Method Collection Time Receive d Time (Source) Location / / Volume Laterality 09/11/2013 10:14 09/11/2013 PM CDT 10:14 PM CDT Historical Provider LAB POCT ORDERABLES-MANUAL Performing Organization Address City/[facility] Phon e Number [facility] - [address] [place], [place] [address] [facility] Glucose, POCT (09/11/2013 6:01 PM CDT) [facility] Method Time Signature Glucose, 116 70 - 140 [facility] POCT, B MG/DL LABORATORIES - [facility] Sample Site, Capillary [facility] Blood Gas, LABORATORIES - POCT [facility] Last Intake > 4 hours [facility] - [facility] Specimen Anatomical Collection Method Collection Time Receive d Time (Source) Location / / Volume Laterality 09/11/2013 6:01 PM 4 6:01 CDT PM CDT Historical Provider LAB POCT ORDERABLES-MANUAL Performing Organization Address City/[facility] Phon e Number [facility] - [address] [place], [place] [address] [facility] Glucose, POCT (09/11/2013 1:24 PM CDT) [facility] Method Time Signature Glucose, 133 70 - 140 [facility] POCT, B MG/DL LABORATORIES - [facility] Sample Site, Capillary [facility] Blood Gas, LABORATORIES - POCT [facility] Last Intake > 4 hours [facility] - [facility] Specimen Anatomical Collection Method Collection Time Receive d Time (Source) Location / / Volume Laterality 09/11/2013 1:24 PM 4 1:24 CDT PM CDT Historical Provider LAB POCT ORDERABLES-MANUAL Performing Organization Address City/[facility]/ZIP Code Phon e Number [facility] - [address] [place], [place] [address] [facility] Glucose, POCT (09/11/2013 12:39 PM CDT) [facility] Method Time Signature Glucose, 132 70 - 140 [facility] POCT, B MG/DL LABORATORIES - [facility] Sample Site, Capillary [facility] Blood Gas, LABORATORIES - POCT [facility] Specimen Anatomical Collection Method Collection Time Receive d Time (Source) Location / / Volume Laterality 09/11/2013 12:39 09/11/2013 PM CDT 12:39 PM CDT Historical Provider LAB POCT ORDERABLES-MANUAL Performing Organization Address City/[facility]/ZIP Code Phon e Number [facility] - [address] [place], [place] [address] [facility] Glucose, POCT (09/11/2013 12:14 PM CDT) [facility] Method Time Signature Glucose, 123 70 - 140 [facility] POCT, B MG/DL LABORATORIES - [facility] Sample Site, Capillary [facility] Blood Gas, LABORATORIES - POCT [facility] Specimen Anatomical Collection Method Collection Time Receive d Time (Source) Location / / Volume Laterality 09/11/2013 12:14 09/11/2013 PM CDT 12:14 PM CDT Varun Guerrier M.D. LAB POCT ORDERABLES-MANUAL Performing Organization Address City/State/ZIP Code Phon e Number [facility] - [address] [place], [place] [address] [facility] (ABNORMAL) Glucose, POCT (09/11/2013 10:21 AM CDT) [facility] Method Time Signature Glucose, 142 (H) 70 - 140 [facility] POCT, B MG/DL LABORATORIES - [facility] Sample Site, Capillary [facility] Blood Gas, LABORATORIES - POCT [facility] Specimen Anatomical Collection Method Collection Time Receive d Time (Source) Location / / Volume Laterality 09/11/2013 10:21 09/11/2013 AM CDT 10:21 AM CDT Varun Guerrier M.D. LAB POCT ORDERABLES-MANUAL Performing Organization Address City/State/ZIP Code Phon e Number [facility] - [address] [place] [address] [facility] Dx Spine 1 View (09/11/2013 10:06 AM [...] Electronically signed by: ?? Josh Huff MD. ??[phone] 11-Sep-2013 10:1 7 Procedure Note Romy Huff [...] Time Signature Last Intake > 4 hours [facility] - [facility] Glucose, 142 (H) 70 - 140 [facility] POCT, B MG/DL LABORATORIES - [facility] Sample Site, Capillary [facility] Blood Gas, LABORATORIES - POCT [facility] Specimen Anatomical Collection Method Collection Time Receive d Time (Source) Location / / Volume Laterality 09/11/2013 6:19 AM 4 6:19 CDT AM CDT Historical Provider LAB POCT ORDERABLES-MANUAL Performing Organization Address City/State/ZIP Code Phon e Number [facility] - [address] [place], [place] [address] [facility] documented in this encounter Visit Diagnoses Not on filedocumented in this encounter
--- OUTSIDE RECORDS SUMMARY | 2022-02-17 10:31 | XMS_ITS | Encounter Summary ---
:1940 Author Organization [facility] Address [address] [place] [address] Care Team Providers Name Role Phone Unavailable [...] How often do you attend voodoo or islam services? Patien t refused 10/29/2020 [...]
--- OUTSIDE RECORDS SUMMARY | 2022-02-17 10:31 | XMS_ITS | Encounter Summary ---
:1940 Author Organization [facility] Address [address] [place] [address] Care Team Providers Name Role Phone Unavailable [...]
--- OUTSIDE RECORDS SUMMARY | 2022-02-17 10:31 | XMS_ITS | Encounter Summary ---
:1940 Author Organization [facility] Address [address] [place] [address] Care Team Providers Name Role Phone Elsewhere, Pcp Primary Care Provider Unavailable Encounter Details Date Type Department Care Team Description 11/27/2011 Historical Ophthalmology RST OPH Tania Michaels O.D. [address] [place], [place] [phone] (Wo rk) Social History [...] How often do you attend zoroastrianism or gnosticism services? Patien t refused 10/29/2020 Do you belong to any clubs or organizations such as Not jelani borrero zoroastrianism groups, unions, fraternal or athletic [...] both eyes CDM Reports - EYEGEN Id: [id number] Status: Fnl documented in this encounter Plan of Treatment Not on filedocumented as of this encounter Visit Diagnoses Not on filedocumented in this encounter Care Teams Dramatic Teacher Relationship Specialty Start Date End Date Elsewhere, Pcp PCP - General Internal Medicine 02/04/22 documented as of this encounter
--- OUTSIDE RECORDS SUMMARY | 2022-02-17 10:32 | XMS_ITS | Encounter Summary ---
:1940 Author Organization [facility] Address [address] [place] [address] Care Team Providers Name Role Phone Elsewhere, Pcp Primary Care Provider Unavailable Encounter Details Date Type Department Care Team Description 02/11/2006 Historical Ophthalmology RST OPH [place] Andrade O.D. [address] [place], [place] [phone] (Wo rk) Social History [...] How often do you attend jain or hoahaoism services? Patien t refused 10/29/2020 [...] visually significant. CDM Reports - EYEGEN Id: [id number] Status: Fnl documented in this encounter Plan of Treatment Not on filedocumented as of this encounter Visit Diagnoses Not on filedocumented in this encounter Care Teams Brick Tosser Relationship Specialty Start Date End Date Elsewhere, Pcp PCP - General Internal Medicine 02/04/22 documented as of this encounter
--- OUTSIDE RECORDS SUMMARY | 2022-02-17 10:32 | XMS_ITS | Encounter Summary ---
:1940 Author Organization [facility] Address [address] [place] [address] Care Team Providers Name Role Phone Elsewhere, Pcp Primary Care Provider Unavailable Encounter Details Date Type Department Care Team Description 03/15/2008 Historical Ophthalmology RST OPH Tania Michaels O.D. [address] [place], [place] [phone] (Wo rk) Social History [...] How often do you attend restorationist or adventism services? Patien t refused 10/29/2020 [...] without retinopathy CDM Reports - EYEGEN Id: [id number] Status: Fnl documented in this encounter Plan of Treatment Not on filedocumented as of this encounter Visit Diagnoses Not on filedocumented in this encounter Care Teams Attendance Clerk Relationship Specialty Start Date End Date Elsewhere, Pcp PCP - General Internal Medicine 02/04/22 documented as of this encounter
--- OUTSIDE RECORDS SUMMARY | 2022-02-17 10:32 | XMS_ITS | Encounter Summary ---
:1940 Author Organization [facility] Address [address] [place] [address] Care Team Providers Name Role Phone Elsewhere, Pcp Primary Care Provider Unavailable Encounter Details Date Type Department Care Team Description 12/11/2004 Historical Ophthalmology RST OPH [place] Andrade O.D. [address] [place], [place] [phone] (Wo rk) Social History [...] How often do you attend caodaism or protestant services? Patien t refused 10/29/2020 Do you belong to any clubs or organizations such as Nabil borrero caodaism groups, unions, fraternal or athletic groups, [...] (hyperopia, presbyopia). CDM Reports - EYEGEN Id: [id number] Status: Fnl documented in this encounter Plan of Treatment Not on filedocumented as of this encounter Visit Diagnoses Not on filedocumented in this encounter Care Teams Instructor Apparel Manufacture Relationship Specialty Start Date End Date Elsewhere, Pcp PCP - General Internal Medicine 02/04/22 documented as of this encounter
--- OUTSIDE RECORDS SUMMARY | 2022-02-17 10:32 | XMS_ITS | Encounter Summary ---
:1940 Author Organization [facility] Address [address] [place] [address] Care Team Providers Name Role Phone Unavailable [...] How often do you attend zoroastrian or holiness services? Patien t refused 10/29/2020 [...]
--- OUTSIDE RECORDS SUMMARY | 2022-02-17 10:32 | XMS_ITS | Encounter Summary ---
:1940 Author Organization [facility] Address [address] [place] [address] Care Team Providers Name Role Phone Unavailable [...] How often do you attend voodoo or yazidi services? Patien t refused 10/29/2020 [...]
--- OUTSIDE RECORDS SUMMARY | 2022-02-17 10:32 | XMS_ITS | Encounter Summary ---
:1940 Author Organization [facility] Address [address] [place] [address] Care Team Providers Name Role Phone Unavailable [...] often do you attend latter day or latter day services? Patien t refused [...]
--- OUTSIDE RECORDS SUMMARY | 2022-02-17 10:32 | XMS_ITS | Encounter Summary ---
:1940 Author Organization [facility] Address [address] [place] [address] Care Team Providers Name Role Phone Elsewhere, Pcp Primary Care Provider Unavailable Encounter Details Date Type Department Care Team Description 03/30/2007 Historical Ophthalmology RST OPH Dharmesh Lopez O.D. [address] [place], [place] [address] (Wo rk) Social History [...] How often do you attend gnosticism or muslim services? Patien t refused 10/29/2020 [...] visually significant. CDM Reports - EYEGEN Id: [id number] Status: Fnl documented in this encounter Plan of Treatment Not on filedocumented as of this encounter Visit Diagnoses Not on filedocumented in this encounter Care Teams Manager Community Relationship Specialty Start Date End Date Elsewhere, Pcp PCP - General Internal Medicine 02/04/22 documented as of this encounter
--- OUTSIDE RECORDS SUMMARY | 2022-02-17 10:32 | XMS_ITS | Encounter Summary ---
:1939 Author Organization [facility] Address [address] [place] [address] Care Team Providers Name Role Phone Unavailable [...] How often do you attend advent or yazidism services? Elizabeth t refused 10/29/2020 Do you [...]
--- OUTSIDE RECORDS SUMMARY | 2022-02-17 10:32 | XMS_ITS | Encounter Summary ---
:1939 Author Organization [facility] Address [address] [place] [address] Care Team Providers Name Role Phone Elsewhere, [...] 10/29/2020 relatives? How often do you attend anabaptist or holiness services? Patien t refused 10/29/2020 Do you belong to any clubs or organizations such as Nabil borrero anabaptist groups, unions, fraternal or athletic groups, or [...] error (hyperopic astigmatism, presbyopia) CDM Reports - EYEGEN Id: [id number] Status: Fnl documented in this encounter Plan of Treatment Not on filedocumented as of this encounter Visit Diagnoses Not on filedocumented in this encounter Care Teams Clinical Research Spec Relationship Specialty Start Date End Date Elsewhere, Pcp PCP - General Internal Medicine 02/04/22 documented as of this encounter
--- OUTSIDE RECORDS SUMMARY | 2022-02-17 10:33 | XMS_ITS | Clinical Summary ---
:1940 Author Organization [facility] [place] [address] Care Team Providers Name Role Phone Raul [...] Specialty Care Team Description 02/05/2022 Office Visit Mario Romero, Ulcer ( Follow up-right great DPM toe ulcer) 02/05/2022 Travel 12/25/2021 Office Visit Mario Romero, Ulcer ( Follow up-right great DPM toe healed ulce r) 12/25/2021 Travel from Last 3 Months Social History [...] Assigned at Date Recorded Not on file COVID-19 Exposure Response Date Recorded In the last 10 days, have you been in contact with No / Unsu re 02/05/2022 7:54 AM CDT someone who was confirmed or suspected to have Coronavirus/COVID-19? Obstetrics History Last Filed Vital Signs Vital Sign Reading Time Taken Comments Blood Pressure 154/74 02/26/2021 8:13 AM CDT Pulse 86 02/05/2022 8:02 AM CDT Temperature 36.8 ??C (98.2 ??F) 11/29/2020 10:21 AM CDT Respiratory Rate - - Oxygen Saturation 98% 02/05/2022 8:02 AM CDT Inhaled Oxygen Concentration - - Weight 87.4 kg (192 lb 9.6 oz) 02/05/2022 8:02 AM CDT Height - - Body Mass Index - - Plan of Treatment Upcoming Encounters Date Type Specialty Care Team Description 03/19/2022 Office Visit Meera Romero, DPM [address] [facility] [place], [place] [address] (Wo rk) Health Maintenance [...] 2004 COVID-19 vaccine series (4 - Booster 04/30/2021 03/05/2021, 08/27/2020, for Pfizer series) 08/06/2020 Influenza for age 65+ 01/15/2022 Results Not on filefrom Last 3 Months Insurance Payer Benefit Plan / Subscriber ID Effective Dates Phone Addre ss Type Group MEDICARE PART B - MEDICARE PART B [id number] 2004-Prese ATTN: CLAIMS HB USE ONLY HB ONLY nt [address] [place] [address] [facility] MR [id number] 2021-Sonja [address] [address] [place] [address] Care Teams Actuarial Manager Relationship Specialty Start Date End Date Raul Dunlap MD PCP - General 08/28/16 [facility] [address] [address]
== END 2022-02-17 10:24 | disposition home or self-care (01) ==
LOC: OP CLINIC 10:24
PROVIDERS: PCP Nurse Practitioner Family; Visit Provider Surgery
DX: R19.7 Diarrhea, unspecified (principal); K63.5 Polyp of colon; K57.30 Diverticulosis of large intestine without perforation or abscess without bleeding; K63.89 Other specified diseases of intestine
CPT/HCPCS: 45380; 45385; 88305; 99153; J2250; J3010

== ENCOUNTER 2022-02-19 13:57 | Outpatient (CLI) | payer MEDICARE, SELFPAY ==
--- OUTSIDE RECORDS SUMMARY | 2022-02-19 14:01 | XMS_ITS | Encounter Summary ---
:1940 Author Organization [facility] Address [address] [place] [address] Care Team Providers Name Role Phone Lexus Fowler M.D., M.P.H. Primary Care Provider [phone] Reason for Visit Reason Comments Med Refill Encounter Details Date Type Department Care Team Description 07/15/2021 Refill Department of Med Gibson M .D., Med Refill Medicine, [facility] brandon Cameron [facility] [address] [place] [address] [place] [address] [place] [address] [phone] Social History Tobacco Use Types Packs/Day Years [...] How often do you attend uatsdin or rastafari services? Patien t refused 10/29/2020 Do you [...] (HCC) documented in this encounter Care Teams Veneer Manufacturer Relationship Specialty Start Date End Date Lexus Fowler M.D., M.P.H. PCP - General 11/14/18 11/13/21 [address] [place] [address] documented as of this encounter
--- OUTSIDE RECORDS SUMMARY | 2022-02-19 14:01 | XMS_ITS | Encounter Summary ---
:1940 Author Organization [facility] Address [address] [place] [address] Care Team Providers Name Role Phone Elsewhere, Pcp Primary Care Provider Unavailable Reason for Visit Reason Comments Follow-up DM/HTN Encounter Details Date Type Department Care Team Description 02/04/2022 Clinical Communication Department of Bhavya Martínez ow-up (DM/HTN) Family Medicine, Marshal Gardner R.N. [facility] [address] [facility] [address] [address] [facility] [phone] [place], [place] (Work) [phone] Social History Tobacco Use Types Packs/Day Years [...] How often do you attend anglican or oriental orthodox services? Patien t refused [...] confirm that they transferred their care to [facility] that opened where the only Wisner used to be. We will have us [...] on filedocumented in this encounter Care Teams Firer Helper Relationship Specialty Start Date End Date Elsewhere, Pcp PCP - General Internal Medicine 02/04/22 documented as of this encounter
--- OUTSIDE RECORDS SUMMARY | 2022-02-19 14:01 | XMS_ITS | Encounter Summary ---
:1940 Author Organization [facility] Address [address] [place] [address] Care Team Providers Name Role Phone Eliezer RYAN D.O., Marco Monae Primary Care Provider Encounter Details Date Type Department Care Team Description 01/27/2022 Orders Only Department of Family Marshal Martínez etes Mellitus Type Medicine, [facility] R, R.N. 2 With Diabetic Clinic [place], in [address] [place] [address] Neuropathy (HCC) [place], [place] (Primary Dx) [address] [facility] [address] [place] [address] [phone] Social History Tobacco Use Types Packs/Day Years [...] How often do you attend jainism or mandaen services? Patien t refused 10/29/2020 [...] documented in this encounter Care Teams Director Of Music Relationship Specialty Start Date End Date Marco Martins IV, D.O. PCP - General 11/14/21 02/03/22 [address] [place] [address] documented as of this encounter
--- OUTSIDE RECORDS SUMMARY | 2022-02-19 14:01 | XMS_ITS | Encounter Summary ---
:1939 Author Organization [facility] Address [address] [place] [address] Care Team Providers Name Role Phone Lexus Fowler M.D., M.P.H. Primary Care Provider [phone] Encounter Details Date Type Department Care Team Description 01/22/2021 Orders Only Department of Family Lexus Fowler, Hyponatremia (Primary Medicine, [facility] Alonso, M.P. H. Dx) [facility] [address] [place] [address] [address] [facility] [address] [place] [address] [phone] Social History Tobacco Use Types Packs/Day Years [...] How often do you attend evangelical or mandaen services? Patien t refused 10/29/2020 [...] Primary documented in this encounter Care Teams Lease Administration Analyst Relationship Specialty Start Date End Date Lexus Fowler M.D., M.P.H. PCP - General 11/14/18 11/13/21 [address] [place] [address] documented as of this encounter
--- OUTSIDE RECORDS SUMMARY | 2022-02-19 14:01 | XMS_ITS | Encounter Summary ---
:1940 Author Organization [facility] Address [address] [place] [address] Care Team Providers Name Role Phone Lexus Fowler M.D., M.P.H. Primary Care Provider Reason for Visit Reason Comments Diabetes Hypertension Outpatient (Routine) - Closed Specialty Diagnoses / Procedures Referred By Contact Refer red To Contact Family Medicine Lexus Fowler M.D., [facility] M.P.H. 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 Patien t refused 10/29/2020 [...] documented in this encounter Care Teams Print Graphic Designer Relationship Specialty Start Date End Date Lexus Fowler M.D., M.P.H. PCP - General 11/14/18 11/13/[address] [place] [address] documented as of this encounter
--- OUTSIDE RECORDS SUMMARY | 2022-02-19 14:01 | XMS_ITS | Encounter Summary ---
:1940 Author Organization [facility] Address [address] [place] [address] Care Team Providers Name Role Phone Lexus Fowler M.D., M.P.H. 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 Maintenance Health Adult in [address] [facility] [address] [place], [place] [phone] [address] (Work) [phone] Social History Tobacco Use Types Packs/Day Years [...] How often do you attend sikhism or denominational services? Patien t refused 10/29/2020 Do you [...] or slept in a snf (including now)? Education Answer Date Recorded What [...] M.P.H. LAB BLOOD ADD-ON Performing Organization Address City/[facility]/ZIP Code Phon e Number [facility] - [address] [place], [place] [address] [facility] [place] [address] Laboratories-[facility] [address] (ABNORMAL) Hemoglobin [...] City/State/ZIP Code Phon e Number [facility] - 200 [place], [place] [address] [facility] [place], [place] [phone] [place] [address] (ABNORMAL) Sodium (01/21/2021 8:04 AM CDT) athologist Signature Sodium, P 133 (L) 135 - 145 01/21/2021 DTL mmol/L 1:25 PM CDT Specimen Anatomical Collection Method Collection Time Receive d Time (Source) Location / / Volume Laterality Blood (Blood, 01/21/2021 8:04 AM 01/22/20 8:04 Venous) CDT AM CDT Lexus Fowler M.D., M.P.H. LAB BLOOD ADD-ON Performing Organization Address City/[facility] Phon e Number [facility] - 200 [place], [place] [address] [facility] [place], [place] [phone] [place] [address] Potassium (01/21/2021 8:04 AM CDT) athologist Signature Potassium, P 4.9 3.6 - 5.2 01/21/2021 DTL mmol/L 1:25 PM CDT Specimen Anatomical Collection Method Collection Time Receive d Time (Source) Location / / Volume Laterality Blood (Blood, 01/21/2021 8:04 AM 01/22/20 8:04 Venous) CDT AM CDT Lexus Fowler M.D., M.P.H. LAB BLOOD ADD-ON Performing Organization Address City/State/[facility] Code Phon e Number [facility] - 200 [place], [place] [address] [facility] [address] Creatinine with Estimated GFR (01/21/2021 8:04 AM CDT) athologist Signature Creatinine 1.13 0.74 - 01/21/2021 DTL 1.35 mg/dL 1:25 PM CDT eGFR-Black/Afric 70 >=60 01/21/2021 DTL an Citizen Of [place] mL/min/BSA 1:25 PM CDT Comment: ----ADDITIONAL INFORMATION---- [...] City/State/ZIP Code Phon e Number [facility] - [address] [place] [address] [facility] [place] [address] Laboratories-[address] documented in this encounter Visit Diagnoses Diagnosis Diabetes Mellitus Type 2 With Diabetic N europathy ([facility]) Maintenance Health Adult documented in this encounter Care Teams Aquacultural Worker Supervisor Relationship Specialty Start Date End Date Lexus Fowler M.D., M.P.H. PCP - General 11/14/18 11/13/21 [address] [place] [address] documented as of this encounter
--- OUTSIDE RECORDS SUMMARY | 2022-02-19 14:01 | XMS_ITS | Clinical Summary ---
:1940 Author Organization [facility] Address [address] [place] [address] Care Team Providers Name Role Phone Elsewhere, Pcp Primary Care Provider Unavailable Source Comments Patient records contain information from all sites at [facility]. For routine questions regarding patient records, call [phone] during business hours, M-F 8:00 AM - 5:00 PM Central Time. Record requests for emergency care only can be directed to [phone] at any time.[facility] Allergies No known active allergies Medications Medication [...] test daily. 100 strip 3 08/19/2020 Active (Mobile Iron Ultra Blue Test for testing, Strip) strips [...] at the end of his visit. Callus [place] Foot 10/13/2017 Dermatitis Seborrheic 03/02/2017 Keratosis Seborrheic [...] Encounters Date Type Specialty Care Team Description 02/18/2022 Refill [facility] Med Mcgrath M.D., J.D. 02/04/2022 Clinical Communication Family Medicine Marshal Martínez Follow-up (DM/HTN) R, R.N. 01/27/2022 Orders Only Family Medicine Marshal Martínez Diabetes Mellitus R, R.N. Type 2 With Anna betic Neuropathy (HCC ) (Primary Dx) 11/19/2021 Refill [facility] Med Mcgrath M.D., J.D. from Last 3 Months Immunizations Name Administration Dates Next Due H1N1 All Forms 04/25/2009 HZV (ZOSTAVAX) 12/10/2008 HepB Adult 12/26/2019, 09/28/2019 (Deferred: Patient Refused), 03/10/2019, 03/10/2019 (Deferred: Patient Refused) HepB Adult (HEPLISAV-B) 10/29/2020 Influenza, Quadrivalent, Adjuvanted, 01/04/2020 Preservative Free PCV13 09/13/2014 PPSV23 12/23/2004 RZV (SHINGRIX) 11/10/2017, 09/09/2017 SARS-COV-2 (COVID-19) - [facility] (12 08/06/2020 years or older) Td, (Adult) [...] How often do you attend confucianism or mu-ism services? Patien t refused 10/29/2020 Do you belong to any clubs or organizations such as Nabil borrero confucianism groups, unions, fraternal or athletic groups, [...] slept in a group home (including now)? Education Answer Date Recorded [...] history exists Medical Devices Implanted Type Area Cooky Packer Device Shelf Model / Identifier Expiration Serial / Date Lot J J Sig Tib Poly Stab #4 10.0m - Giordano [id number] Knee Implant Gonzalez son & Implanted: Qty: 1 on 12/19/2004 [employer] Description: Device Cooky Packer - J [employer]. Device Status Text - [id number] [id number]. J J Patella Rev Round 35m - Giordano [id number] Knee Implant Other/Le gacy - See Bob & Bob Implanted: Qty: 1 on 12/25/2013 Implant Description Services Inc Description: Device Cooky Packer - J [employer]. Body Location - Other. Right. Device Status Text - [id number] [id number]. Cement Bone Large - Giordano 2840 Misc Other María Implanted: Qty: 2 on 12/19/2004 Description: Device Cooky Packer - Stryk er Jordon.. Device Status Text - [id number]. Cement Bone Large - Giordano 2840 Misc Other [place] Implanted: Qty: 2 on 12/25/2013 Description: Device Cooky Packer - Stryk er Jordon.. Device Status Text - [id number]. Insurance Payer Benefit Plan / Subscriber ID Effective Dates Phone Addre ss Type Group AARP AARP MEDICARE [id number] 2020-Present [phone] [address] [address] [place] [address] ([place]) [place] [address] Advance Directives For more information, please contact: [phone] Documents on File Type Date Recorded Patient Wellness Spa Manager Explanati on Advance Directives 12/12/2004 12:00 AM Legacy doc ument. See document viewer. Care Teams Mattress Filler Relationship Specialty Start Date End Date Elsewhere, Pcp PCP - General Internal Medicine 02/04/22
--- OUTSIDE RECORDS SUMMARY | 2022-02-19 14:01 | XMS_ITS | Encounter Summary ---
:1940 Author Organization [facility] Address [address] [place] [address] Care Team Providers Name Role Phone Lexus Fowler M.D., M.P.H. Primary Care Provider [phone] Encounter Details Date Type Department Care Team Description 01/21/2021 Hospital Encounter Department of Lexus Fowler Diab etes Mellitus Laboratory Medicine Alonso Lassiter, M.P .H. Type 2 With in [address] Diabetic Neuropathy [place], [place] ([facility]) [address] [facility] [address] [place], [place] [phone] [address] (Work) [phone] Social History Tobacco Use Types Packs/Day Years [...] How often do you attend pentecostal or episcopal services? Patien t refused 10/29/2020 Do you belong to any clubs or organizations such as Not aske d pentecostal groups, unions, fraternal or athletic groups, [...] and as covered by insurance blood-glucose meter [facility] 1 each daily. 1 each 0 08/20/19 [...] With Diabetic Neuropathy times a day with ([facility]) meals. rosuvastatin (CRESTOR) 10 Take 1 tablet [...] characteri stics were determined by [facility] in a manner co nsistent with CLIA [...] Address City/State/ZIP Code Phon e Number [facility] - [address] [place] [address] [facility] [place] [address] Laboratories-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 PCP - General 11/14/18 11/13/[address] [place] [address] documented as of this encounter
--- OUTSIDE RECORDS SUMMARY | 2022-02-19 14:01 | XMS_ITS | Encounter Summary ---
:1940 Author Organization [facility] Address [address] [place] [address] Care Team Providers Name Role Phone Lexus Fowler M.D., M.P.H. Primary Care Provider [phone] Encounter Details Date Type Department Care Team Description 01/01/2021 Orders Only Department of Family Lexus Fowler, [facility] Medicine, [facility] Alonso, M.P. H. Adult (Primary Dx) Clinic [place], [place] [address] [place] [address] [address] [facility] [address] [place] [address] [phone] Social History Tobacco Use Types Packs/Day Years [...] How often do you attend zoroastrianism or jainism services? Patien t refused 10/29/2020 Do you belong to any clubs or organizations such as Not aske d zoroastrianism groups, unions, fraternal or athletic groups, [...] slept in a senior care (including now)? Education Answer Date Recorded What is the highest level of school you have completed or 12 th grade 10/29/2020 the highest degree you have received? Sex Assigned at Date Recorded Not on file documented as of this encounter Plan of Treatment Not on filedocumented as of this encounter Results Vitamin B12 Assay (01/21/2021 8:04 AM CDT) athologist Signature Vitamin B12 [phone] 01/22/2021 DTL Assay, S ng/L 7:23 AM [...] Code Phon e Number [facility] - [address] [place], [place] [address] [facility] [place] [address] Laboratories-[facility] [address] documented in this encounter Visit Diagnoses Diagnosis Maintenance Health Adult - Primary documented in this encounter Care Teams Aquaculturist Relationship Specialty Start Date End Date Lexus Fowler M.D., M.P.H. PCP - General 11/14/18 11/13/[address] [place] [address] documented as of this encounter
--- OUTSIDE RECORDS SUMMARY | 2022-02-19 14:01 | XMS_ITS | Encounter Summary ---
:1940 Author Organization [facility] Address [address] [place] [address] Care Team Providers Name Role Phone Eliezer RYAN D.O., Fred P Primary Care Provider Reason for Visit Reason Comments Med Refill Encounter Details Date Type Department Care Team Description 11/19/2021 Refill Department of [facility] Med Duff M .D., Med Refill Medicine, [facility] brandon Cameron M [facility] [address] [place] [address] [address] [place] [address] [place] [address] [phone] Social History Tobacco Use Types Packs/Day Years [...] How often do you attend mosque or religion services? Patien t refused 10/29/2020 [...] Primary documented in this encounter Care Teams Gunsmith Apprentice Relationship Specialty Start Date End Date Marco Martins IV, D.O. PCP - General 11/14/21 02/03/22 [address] [place] [phone] documented as of this encounter
--- OUTSIDE RECORDS SUMMARY | 2022-02-19 14:01 | XMS_ITS | Encounter Summary ---
:1940 Author Organization [facility] Address [address] [place] [address] Care Team Providers Name Role Phone Lexus Fowler M.D., M.P.H. Primary Care Provider [phone] Encounter Details Date Type Department Care Team Description 10/01/2021 Orders Only RST PCP HLTH MNT Shivani Fowler M.D., M.P.H. [address] [place], [place] [phone] (Wo rk) Social History [...] How often do you attend latter-day or baptism services? Patien t refused 10/29/2020 [...] on filedocumented in this encounter Care Teams Die Inspector Relationship Specialty Start Date End Date Lexus Fowler M.D., M.P.H. PCP - General 11/14/18 11/13/21 [address] [place] [address] documented as of this encounter
--- OUTSIDE RECORDS SUMMARY | 2022-02-19 14:01 | XMS_ITS | Encounter Summary ---
:1940 Author Organization [facility] Address [address] [place] [address] Care Team Providers Name Role Phone Lexus Fowler M.D., M.P.H. Primary Care Provider [phone] Reason for Visit Reason Comments Pre-visit Testing Orders Encounter Details Date Type Department Care Team Description 01/01/2021 Clinical Department of Lexus Fowler Pre-visit Testing Communication Family MedicineMaikol M.D., M.P.H. Orders [facility] [address] [facility] [address] [address] [facility] [phone] [place], [place] (Work) [phone] Social History Tobacco Use Types Packs/Day Years [...] How often do you attend mormonism or orthodoxy services? Patien t refused 10/29/2020 [...] 2:30 PM CDT Caller: pt Callback Number: [phone] Best communication method: call Pharmacy: Request/Details: Pt has labs on 01-21 He is asking for a B-12 labs to be added to that appt. Thanks! Please respond to [facility] Scheduling pool if necessary documented in this encounter Plan of Treatment Not on filedocumented as of this encounter Visit Diagnoses Not on filedocumented in this encounter Care Teams Capsule Inspector Relationship Specialty Start Date End Date Lexus Fowler M.D., M.P.H. PCP - General 11/14/18 11/13/21 [address] [place] [address] documented as of this encounter
--- OUTSIDE RECORDS SUMMARY | 2022-02-19 14:01 | XMS_ITS | Encounter Summary ---
:1940 Author Organization [facility] Address [address] [place] [address] Care Team Providers Name Role Phone Elsewhere, Pcp Primary Care Provider Unavailable Reason for Visit Reason Comments Med Refill Encounter Details Date Type Department Care Team Description 02/18/2022 Refill Department of [facility] Med Duff M .D., Med Refill Medicine, [facility] brandon Cameron M [facility] [address] [place] [address] [address] [place] [address] [place] [address] [phone] Social History Tobacco Use Types Packs/Day Years [...] How often do you attend anglican or hindu services? Patien t refused 10/29/2020 [...] this encounter Miscellaneous Notes Telephone Encounter - Amy Morton - 02/19/2022 12:21 PM CDT This patient does not receive primary care in [facility]. Please reroute to the appropriate department. Thank you. documented in this encounter Plan of Treatment Not on filedocumented as of this encounter Visit Diagnoses Diagnosis Hyperlipidemia documented in this encounter Care Teams Vinyl Cutter Relationship Specialty Start Date End Date Elsewhere, Pcp PCP - General Internal Medicine 02/04/22 documented as of this encounter
--- OUTSIDE RECORDS SUMMARY | 2022-02-19 14:02 | XMS_ITS | Encounter Summary ---
:[address] [facility] Address [address] [place] [address] Care Team Providers Name Role Phone Lexus Fowler M.D., M.P.H. Primary Care Provider Reason for Visit Reason Comments ALETHEA Nurse Line Encounter Details Date Type Department Care Team Description 01/16/2020 Clinical Communication Department of Lexus Fowler Nurse Line Family MedicineMaikol M.D., M.P.H. [facility] [address] [facility] [address] [address] [facility] [phone] [place], [place] (Work) [phone] Social History Tobacco Use Types Packs/Day Years [...] How often do you attend mormon or zoroastrianism services? Patien t refused 10/29/2020 [...] - 01/16/2020 9:02 AM CDT ([facility] and [facility] locations only: If the patient is not having symptoms and is requesting COVID-19 Nasal Swab testing only, use the process listed in the COVID-19 Patient Requesting COVID PCR Test OTG COVID-19 [place] Patient Requesting COVID PCR Test). In the past 30 days have you had a swab for COVID that tested positive? no Route reply to: Please respond to [facility] BLOOD Scheduling pool if necessary Scheduling Contact Number: [phone] documented in this encounter Plan of Treatment Not on filedocumented as of this encounter Visit Diagnoses Not on filedocumented in this encounter Care Teams Shrink Pit Operator Relationship Specialty Start Date End Date Lexus Fowler M.D., M.P.H. PCP - General 11/14/18 11/13/21 [address] [place] [address] documented as of this encounter
--- OUTSIDE RECORDS SUMMARY | 2022-02-19 14:02 | XMS_ITS | Encounter Summary ---
:1940 Author Organization [facility] Address [address] [place] [address] Care Team Providers Name Role Phone Lexus Fowler M.D., M.P.H. Primary Care Provider [phone] Encounter Details Date Type Department Care Team [...] 10/29/2020 relatives? How often do you attend rastafarian or judaism services? Patien t refused 10/29/2020 Do you belong to any clubs or organizations such as Nabil borrero rastafarian groups, unions, fraternal or athletic groups, or [...] on filedocumented in this encounter Care Teams Terminal Makeup Operator Relationship Specialty Start Date End Date Lexus Fowler M.D., M.P.H. PCP - General 11/14/18 11/13/21 [address] [place] [address] documented as of this encounter
--- OUTSIDE RECORDS SUMMARY | 2022-02-19 14:02 | XMS_ITS | Encounter Summary ---
:1939 Author Organization [facility] Address [address] [place] [address] Care Team Providers Name Role Phone Lexus Fowler M.D., M.P.H. Primary Care Provider [phone] Reason for Visit Outpatient (Routine) - Closed Specialty Diagnoses / Procedures Referred By Contact Refer red To Contact Vascular Medicine Sherry Slater APRN, [facility] C.N.P., M.S.N. [address] [place] [phone] Referral ID Status Reason Start Date Expiration Date Visits Requ ested Visits Authorized [id number] Closed 01/15/2020 01/14/2021 1 1 Encounter Details Date Type Department Care Team Description 02/06/2020 Nurse Only Department of Vascular Sherry Slater APRN, C.N.P., M.S.N. [address] [place] [phone] Medicine in [place], Melissa Chatterjee R.N. [address] [place] [phone] [phone] Social History Tobacco Use [...] How often do you attend gnosticist or orthodox services? Patien t refused 10/29/2020 [...] through 14 - You may wear shoes aircraft time clerk in your house only. Beyond day 14 - If no problems have developed, you may begin wearing them outside the house. If you have any wound care questions or concerns please contact the Vascular Center at [phone]. If you need to cancel, reschedule, or schedule a wound care appointment please call [phone]. Provider Signature Melissa Chatterjee R.N. documented in this encounter Progress Notes Melissa Chatterjee R.N. - 02/06/2020 9:00 AM CDT CHIEF COMPLAINT/REASON FOR VISIT: RN to assess and debride. Vinayak Vazquez was seen at the [facility] wound care center.. REFERRAL: Sherry Slater [...] (HCC) documented in this encounter Care Teams Minute Clerk For Basic Traffic Relationship Specialty Start Date End Date Lexus Fowler M.D., M.P.H. PCP - General 11/14/18 11/13/21 [address] [place] [address] documented as of this encounter
--- OUTSIDE RECORDS SUMMARY | 2022-02-19 14:02 | XMS_ITS | Encounter Summary ---
:1939 Author Organization [facility] Address [address] [place] [address] Care Team Providers Name Role Phone Lexus Fowler M.D., M.P.H. Primary Care Provider [phone] Encounter Details Date Type Department Care Team Description 02/14/2020 Hospital Encounter Department of Lexus Fowler Diab etes Mellitus Laboratory Medicine Alonso Lassiter, M.P .H. Type [address] Diabetic Neuropathy [place], [place] ([facility]) [address] [facility] [address] [place], [place] [phone] (Work) [phone] Social History Tobacco Use Types Packs/Day Years [...] How often do you attend sabianist or scientology services? Patien t refused 10/29/2020 [...] Diabetic Neuropathy times a day. ([facility]) D[employer] ULTRA BLUE TEST daily. 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 PCP - General 11/14/18 11/13/21 [address] [place] [address] documented as of this encounter
--- OUTSIDE RECORDS SUMMARY | 2022-02-19 14:02 | XMS_ITS | Encounter Summary ---
:1939 Author Organization [facility] Address [address] [place] [address] Care Team Providers Name Role Phone Lexus Fowler M.D., M.P.H. Primary Care Provider [phone] Encounter Details Date Type Department Care Team Description 06/11/2020 Orders Only RST PCP HLTH SHADIT Javon Martins Jr., M.D. [address] [place] [address] [place] [phone] (Wo rk) Social History Tobacco [...] How often do you attend congregational or taoism services? Patien t refused 10/29/2020 [...] on filedocumented in this encounter Care Teams Mill Operator Helper Relationship Specialty Start Date End Date Lexus Fowler M.D., M.P.H. PCP - General 11/14/18 11/13/21 [address] [place] [address] documented as of this encounter
--- OUTSIDE RECORDS SUMMARY | 2022-02-19 14:02 | XMS_ITS | Encounter Summary ---
:1939 Author Organization [facility] Address [address] [place] [address] Care Team Providers Name Role Phone Lexus Fowler M.D., M.P.H. Primary Care Provider [phone] Encounter Details Date Type Department Care Team Description 02/14/2020 Hospital Encounter Department of Lexus Fowler Diab etes Mellitus Type 2 With Diabetic Neuropathy (HCC); Laboratory Medicine Alonso Lassiter, M.P .H. Maintenance Health Adult in [address] [facility] [address] [place], [place] [phone] [address] (Work) [phone] Social History Tobacco Use Types Packs/Day Years [...] How often do you attend mu-ism or oriental orthodox services? Patien t refused [...] Diabetic Neuropathy times a day. ([facility]) [employer] Technologies[employer]CH ULTRA BLUE TEST daily. for 3 01/07/2018 [...] With Diabetic procedu re are in Neuropathy ([facility]) the results section. POTASSIUM, S/P Routine 02/14/2020 9:34 AM Diabetes Mellitus Re sults for this CDT Type 2 With Diabetic procedu re are in Neuropathy ([facility]) the results section. CREATININE WITH Routine 02/14/2020 9:34 AM Diabetes Mellitus R esults for this EGFR, S/P CDT Type 2 With Diabetic procedu re are in Neuropathy ([facility]) the results section. documented in this encounter [...] City/State/ZIP Code Phon e Number [facility] - [address] [place], [place] [address] [facility] [place] [address] [facility] [address] Sodium (02/14/2020 9:34 AM [...] Organization Address City/State/ZIP Code Phon e Number [facility] [address] [place] [address] [place] [address] 411 [facility]3] Potassium (02/14/2020 9:34 AM CDT) athologist Signature Potassium, P 4.3 3.6 - 5.2 02/14/2020 [facility] mmol/L 10:38 AM CDT Specimen Anatomical Collection Method Collection Time Receive d Time (Source) Location / / Volume Laterality Blood (Blood, 02/14/2020 9:34 AM 02/14/20 20 9:34 Venous) CDT AM CDT Lexus Fowler M.D., M.P.H. LAB BLOOD ADD-ON Performing Organization Address City/[facility]/ZIP Code Phon e Number [facility] [address] [place] [address] [facility] [address] (ABNORMAL) Creatinine with Estimated GFR (02/14/2020 9:34 AM CDT) athologist Signature Creatinine 1.26 0.74 - 02/14/2020 [facility] 1.35 mg/dL 10:38 AM CDT eGFR-Black/Afric 62 >=60 02/14/2020 [facility] an [place] mL/min/BSA 10:38 AM CDT Comment: ----ADDITIONAL INFORMATION---- Estimated GFR calculated using the 2009 CKD_EPI creatinine equation. eGFR Non-Black/ 54 (L) >=60 mL/min/BSA 02/14/2020 10:38 AM CDT [facility] [place] Comment: ----ADDITIONAL INFORMATION---- Estimated GFR calculated using the 2009 CKD_EPI creatinine equation. Specimen Anatomical Collection Method Collection Time Receive d Time (Source) Location / / Volume Laterality Blood (Blood, 02/14/2020 9:34 AM 02/14/20 20 9:34 Venous) CDT AM CDT Lexus Fowler M.D., M.P.H. 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 PCP - General 11/14/18 11/13/21 [address] [place] [address] documented as of this encounter
--- OUTSIDE RECORDS SUMMARY | 2022-02-19 14:02 | XMS_ITS | Encounter Summary ---
:1939 Author Organization [facility] Address [address] [place] [address] Care Team Providers Name Role Phone Lexus Fowler M.D., M.P.H. Primary Care Provider Encounter Details Date Type Department Care Team Description 01/17/2020 Nurse Triage Department of [facility] Shaina Barr, Medicine, [facility], [facility] [address] [place] [address] [address] [place] [address] Social History Tobacco Use Types Packs/Day Years [...] How often do you attend congregational or amish services? Patien t refused 10/29/2020 Do you [...] on filedocumented in this encounter Care Teams Stockroom Selector Relationship Specialty Start Date End Date Lexus Fowler M.D., M.P.H. PCP - General 11/14/18 11/13/21 [address] [place] [address] documented as of this encounter
--- OUTSIDE RECORDS SUMMARY | 2022-02-19 14:02 | XMS_ITS | Encounter Summary ---
:1939 Author Organization [facility] Address [address] [place] [address] Care Team Providers Name Role Phone Lexus Fowler M.D., M.P.H. Primary Care Provider [phone] Encounter Details Date Type Department Care Team Description 02/12/2020 Hospital Encounter Department of Lexus Fowler Diab etes Mellitus Laboratory Medicine Alonso Lassiter, M.P .H. Type 2 With in [address] Diabetic Neuropathy [place], [place] ([facility]) 411 [facility] [address] [place], [place] [phone] [address] (Work) [phone] Social History Tobacco Use Types Packs/Day Years [...] How often do you attend mosque or adventism services? Patien t refused 10/29/2020 [...] With Diabetic Neuropathy times a day. ([facility]) ONETOUCH ULTRA BLUE TEST daily. for 3 [...] Phon e Number [facility] - 200 [place], [place] [address] [facility] [place] [address] Laboratories-[facility] [address] 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 PCP - General 11/14/18 11/13/[address] [place] [address] documented as of this encounter
--- OUTSIDE RECORDS SUMMARY | 2022-02-19 14:02 | XMS_ITS | Encounter Summary ---
:1939 Author Organization [facility] Address [address] [place] [address] Care Team Providers Name Role Phone Lexus Fowler M.D., M.P.H. Primary Care Provider [phone] Encounter Details Date Type Department Care Team [...] How often do you attend anabaptism or muslim services? Patien t refused 10/29/2020 Do you belong to any clubs or organizations such as Nabil borrero anabaptism groups, unions, fraternal or athletic groups, [...] on filedocumented in this encounter Care Teams Staff Pharmacist Relationship Specialty Start Date End Date Lexus Fowler M.D., M.P.H. PCP - General 11/14/18 11/13/21 [address] [place] [address] documented as of this encounter
--- OUTSIDE RECORDS SUMMARY | 2022-02-19 14:02 | XMS_ITS | Encounter Summary ---
:1940 Author Organization [facility] Address [address] [place] [address] Care Team Providers Name Role Phone Lexus Fowler M.D., M.P.H. Primary Care Provider Reason for Referral Outpatient (Routine) - Closed Specialty Diagnoses / Procedures Referred By Contact Refer red To Contact Family Lexus Grace M.D., Jesus Owusu M.P.H. [address] [place] [phone] Referral ID Status Reason Start Date Expiration Date Visits Requ ested Visits Authorized [id number] Closed 08/16/2020 08/16/2021 1 1 Reason for Visit Reason Comments Diabetes Outpatient (Routine) - Closed Specialty Diagnoses / Procedures Referred By Contact Refer red To Contact Family Lexus Grace M.D., Jesus Owusu M.P.H. [address] [place] [phone] Referral ID Status Reason Start Date Expiration Date Visits Requ ested Visits Authorized [id number] Closed 02/14/2020 02/13/2021 1 1 Encounter Details Date Type Department Care Team Description 08/16/2020 Office Visit Department of [facility] Lexus Fowler, Diabetes Mellitus Type 2 With Diabetic Neuropathy (HCC) (Primary Dx); Medicine, Estiven Gupta, M.P.H. Hypertension Essential Primary; Family Clinic [address] Diabetes Mellitus 2 Ulcer Toe (HCC); [facility]on [facility] [address] [address] [facility] SHADI HERNANDEZ [address] Social History Tobacco [...] How often do you attend moravian or rastafari services? Patien t refused 10/29/2020 [...] to follow-up with podiatry at in the [facility], his appointment is on 08/20. He [...] auscultation bilaterally, no wheezing, crackles, rales Skin: Edon and well perfused Extremities: Dorsalis pedis pulses [...] 5 mg daily, losartan 100 mg daily, bmghuiqfwatsxgwysbz52 mg daily. No changes necessary at this time. 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 I appreciate their cares. #4 Maintenance Health Adult Other orders - Family Medicine office visit (clinic) - Family Medicine office visit (clinic); Future; Expected date: 02/15/2021 - [place] Ultra Blue Test Strip strips; 1 test daily. for testing, Starting Wed08/16/2020, Normal documented in this encounter Miscellaneous Notes Assessment & Plan Note - Lexus Fowler M.D., M.P.H. - 08/16/2020 1:28 PM CDTAssociated Problem(s): Hypertension Essential Primary Well managed on current regimen of amlodipine 5 mg daily, losartan 100 mg daily, sjosafgoyjrxstccpqz44 mg daily. No changes necessary at this [...] Name Type Priority Associated Diagnoses Order S [facility] Outpatient Referral Routine Expec margoth: office visit 02/15/2021 (clinic) (Approximate), Expires: 08/17/2023 documented as of this encounter Results Albumin, Random, Urine (01/21/2021 8:33 AM CDT) athologist Signature Albumin, 8.1 mg/L 01/22/2021 DTL Random, U 9:50 AM CDT Comment: ----ADDITIONAL INFORMATION---- This test has been modified from the valentin hurtado's instructions. Its performance characteri stics were determined by [facility] in a manner co nsistent with [...] Phon e Number [facility] - [address] [place], [place] [address] [facility] [place] [address] Laboratories-[facility] [address] (ABNORMAL) Hemoglobin [...] City/State/ZIP Code Phon e Number [facility] [address] [place] [address] (ABNORMAL) Sodium (01/21/2021 8:04 AM CDT) P athologist Signature Sodium, P 133 (L) 135 - 145 01/21/2021 DTL mmol/L 1:25 PM CDT Specimen Anatomical Collection Method Collection Time Receive d Time (Source) Location / / Volume Laterality Blood (Blood, 01/21/2021 8:04 AM 01/22/20 8:04 Venous) CDT AM CDT Lexus Fowler M.D., M.P.H. LAB BLOOD ADD-ON Performing Organization Address City/[facility]/ZIP Code Phon e Number [facility] [address] [place] [address] [place] [address] Potassium (01/21/2021 8:04 AM CDT) P [...] Phon e Number [facility] - [address] [place] [address] [facility] [place] [place] [address] Laboratories-[address] Creatinine with Estimated GFR (01/21/2021 8:04 AM CDT) P athologist Signature Creatinine 1.13 0.74 - 01/21/2021 DTL 1.35 mg/dL 1:25 PM CDT eGFR-Black/Afric 70 >=60 01/21/2021 DTL an Tanzanian mL/min/BSA 1:25 PM CDT Comment: ----ADDITIONAL INFORMATION---- [...] Phon e Number 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 PCP - General 11/14/18 11/13/21 [address] [place] [address] documented as of this encounter
--- OUTSIDE RECORDS SUMMARY | 2022-02-19 14:02 | XMS_ITS | Encounter Summary ---
:1940 Author Organization [facility] Address [address] [place] [address] Care Team Providers Name Role Phone Lexus Fowler M.D., M.P.H. Primary Care Provider Reason for Referral Outpatient (Routine) - Closed Specialty Diagnoses / Procedures Referred By Contact Refer red To Contact Diagnoses Cyst Sebaceous Inflamed Med Duff M.D., [facility] Procedures Incision and Drainage J.D. [address] [place] [phone] Referral ID Status Reason Start Date Expiration Date Visits Requ ested Visits Authorized [id number] Closed 01/18/2020 01/17/2021 1 1 Reason for Visit Reason Comments Other boils Appointment Request (Routine) - Closed Specialty Diagnoses / Procedures Referred By Contact Refer red To Contact Community [facility]oles[facility] Referral ID Status Reason Start Date Expiration Date Visits Requ ested Visits Authorized [id number] Closed 01/17/2020 01/16/2021 1 1 Encounter Details Date Type Department Care Team Description 01/18/2020 Office Visit Department of Med [facility] Sebaceous Medicine, [facility] Evie Gupta Inflamed (Primary Dx) [facility], [place] [address] [place], [place] [address] [facility] [address] [place] [address] [phone] Social History Tobacco Use Types Packs/Day Years [...] How often do you attend mosque or yarsani services? Patien t refused 10/29/2020 Do you [...] dose documented in this encounter Care Teams Patrol Mother Relationship Specialty Start Date End Date Lexus Fowler M.D., M.P.H. PCP - General 11/14/18 11/13/21 [address] [place] [address] documented as of this encounter
--- OUTSIDE RECORDS SUMMARY | 2022-02-19 14:02 | XMS_ITS | Encounter Summary ---
:1940 Author Organization [facility] Address [address] [place] [address] Care Team Providers Name Role Phone Lexus Fowler M.D., M.P.H. Primary Care Provider [phone] Encounter Details Date Type Department Care Team [...] on filedocumented in this encounter Care Teams Process Development Engineer Relationship Specialty Start Date End Date Lexus Fowler M.D., M.P.H. PCP - General 11/14/18 11/13/21 [address] [place] [address] documented as of this encounter
--- OUTSIDE RECORDS SUMMARY | 2022-02-19 14:02 | XMS_ITS | Encounter Summary ---
:1940 Author Organization [facility] Address [address] [place] [address] Care Team Providers Name Role Phone Lexus Fowler M.D., M.P.H. Primary Care Provider [phone] Encounter Details Date Type Department Care Team [...] 10/29/2020 relatives? How often do you attend baptism or jewish services? Patien t refused 10/29/2020 Do you belong to any clubs or organizations such as Nabil borrero baptism groups, unions, fraternal or athletic groups, or [...] on filedocumented in this encounter Care Teams After School Program Teacher Relationship Specialty Start Date End Date Lexus Fowler M.D., M.P.H. PCP - General 11/14/18 11/13/21 [address] [place] [address] documented as of this encounter
--- OUTSIDE RECORDS SUMMARY | 2022-02-19 14:02 | XMS_ITS | Encounter Summary ---
:1940 Author Organization [facility] Address [address] [place] [address] Care Team Providers Name Role Phone Lexus Fowler M.D., M.P.H. Primary Care Provider [phone] Reason for Visit Outpatient (Routine) - Closed Specialty Diagnoses / Procedures Referred By Contact Refer red To Contact Vascular Medicine Sherry Slater APRN, [facility] C.N.PClarence, M.S.N. [address] [place] [address] Referral ID Status Reason Start Date Expiration Date Visits Requ ested Visits Authorized [id number] Closed 01/15/2020 01/14/2021 1 1 Encounter Details Date Type Department Care Team Description 02/19/2020 Office Visit Department of Vascular Emelyn Diamond, Diabetes Mellitus 2 Ulcer Toe (HCC) (Primary Dx); Medicine in [place], ALEN C.N.PClarence, Diab etes Mellitus Type 2 With Diabetic Neuropathy (HCC); [place] D.N.PClarence Callus [place] Foot [address] [place] [phone] Social History Tobacco Use Types Packs/Day Years [...] 14 - You may wear shoes multimedia coordinator in your house only. Beyond day 14 - If no problems have developed, you may begin wearing them outside the house. If you have any wound care questions or concerns please contact the Vascular Center at [phone]. If you need to cancel, reschedule, or schedule a wound care appointment please call [phone]. Provider Signature Emelyn Diamond APRN, C.N.P., Maximiliano.N.P. [...] he was seen at a clinic in [place] for an infected right great toe callus [...] Of note, he will be leaving for [place] onMarch 11, 2020. The return in early [...] 2 With Diabetic Neuropathy (HCC) #3 Callus Hayward Foot I discussed my assessment findings and [...] wear shoes. They will be leaving for [place] later this month. He will be gone until late July of 2020. He was encouraged to find a wound care provider while in [place]. He would benefit from monthly debridement.Upon return, [...] 2 With Diabetic N europathy (HCC) Callus Hayward Foot documented in this encounter Care Teams Medical Assembly Relationship Specialty Start Date End Date Lexus Fowler M.D., M.P.H. PCP - General 11/14/18 11/13/21 [address] [place] [address] documented as of this encounter
--- OUTSIDE RECORDS SUMMARY | 2022-02-19 14:02 | XMS_ITS | Encounter Summary ---
:1940 Author Organization [facility] Address [address] [place] [address] Care Team Providers Name Role Phone Lexus Fowler M.D., M.P.H. Primary Care Provider Reason for Visit Reason Comments COVID Inquiry Encounter Details Date Type Department Care Team Description 09/11/2020 Clinical Communication Department of Lexus Fowler Family MedicineMaikol M.D., M.P.H. [facility] [address] [facility] [address] [address] [facility] [phone] [place], [place] (Work) [address] [phone] Social History Tobacco Use Types Packs/Day Years [...] How often do you attend cheondoism or yazdanism services? Patien t refused 10/29/2020 Do you [...] appointment being requested?: More than 14 days [place]- follow local process (End Screening) Testing Recommendation Endpoint Is testing recommended? : Not recommended to test Plan: Endpoint recommendation: Followed regional O[facility] *Reminder if sending patient for testing in [facility] or [facility], route encounter to the correct testing pool. documented in this encounter Plan of Treatment Not on filedocumented as of this encounter Visit Diagnoses Not on filedocumented in this encounter Care Teams Rubber Block Layer Relationship Specialty Start Date End Date Lexus Fowler M.D., M.P.H. PCP - General 11/14/18 11/13/21 [address] [place] [address] documented as of this encounter
--- OUTSIDE RECORDS SUMMARY | 2022-02-19 14:02 | XMS_ITS | Encounter Summary ---
:[address] [facility] Address [address] [place] [address] Care Team Providers Name Role Phone Lexus Fowler M.D., M.P.H. Primary Care Provider [phone] Encounter Details Date Type Department Care Team Description 08/15/2020 Hospital Encounter Department of Lexus Fowler Diab etes Mellitus Laboratory Medicine Alonso Lassiter, M.P .H. Type [address] Diabetic Neuropathy [place], [place] ([facility]) [address] [facility] [address] [place], [place] [phone] [address] (Work) [phone] Social History Tobacco Use Types Packs/Day Years [...] How often do you attend anglican or scientologist services? Patien t refused 10/29/2020 Do you belong to any clubs or organizations such as Not aske d anglican groups, unions, fraternal or athletic groups, [...] Diabetic Neuropathy times a day. ([facility]) ONETOUCH ULTRA BLUE TEST daily. for 3 [...] City/State/ZIP Code Phon e Number [facility] - [address] [place] [address] 05 [facility] [place] 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 PCP - General 11/14/18 11/13/21 [address] [place] [address] documented as of this encounter
--- OUTSIDE RECORDS SUMMARY | 2022-02-19 14:02 | XMS_ITS | Encounter Summary ---
:1940 Author Organization [facility] Address [address] [place] [address] Care Team Providers Name Role Phone Lexus Fowler M.D., M.P.H. Primary Care Provider Reason for Visit Reason Comments Med Refill Encounter Details Date Type Department Care Team Description 08/19/2020 Refill Department of Family Medicine, Marshal Mccoy, RClarenceNClarence Med Refill [facility], [place] [address] [place] [address] [address] [facility] [place] [address] Social History Tobacco Use Types Packs/Day Years [...] How often do you attend spiritism or orthodox services? Patien t refused 10/29/2020 [...] on filedocumented in this encounter Care Teams Cotton Picker Operator Relationship Specialty Start Date End Date Lexus Fowler M.D., M.P.H. PCP - General 11/14/18 11/13/21 [address] [place] [address] documented as of this encounter
--- OUTSIDE RECORDS SUMMARY | 2022-02-19 14:02 | XMS_ITS | Encounter Summary ---
:1940 Author Organization [facility] Address [address] [place] [address] Care Team Providers Name Role Phone Lexus Fowler M.D., M.P.H. Primary Care Provider [phone] Reason for Referral Outpatient (Routine) - Closed Specialty Diagnoses / Procedures Referred By Contact Refer red To Contact Diagnoses Lesion Skin Face Keratosis Actinic Keratosis Seborrheic Lexus Fowler M.D., [facility] Procedures Lesion Destruction M.P.H. [address] [place] [address] Referral ID Status Reason Start Date Expiration Date Visits Requ ested Visits Authorized [id number] Closed 10/29/2020 10/29/2021 1 1 Reason for Visit Reason Comments Other skin spot Appointment Request (Routine) - Closed Specialty Diagnoses / Procedures Referred By Contact Refer red To Contact Family Medicine Referral ID Status Reason Start Date Expiration Date Visits Requ ested Visits Authorized [id number] Closed 09/11/2020 09/11/2021 1 1 Encounter Details Date Type Department Care Team Description 10/29/2020 Office Visit Department of Lexus Renee, Lesion Skin Face (Primary Dx); Medicine, Estiven Osborn M.D., M.P. H. Maintenance Health Adult; [place], [place] [address] [facility] Keratosis Actinic; [place], [place] Keratosis Seborrheic [address] [facility] [address] [place] [address] [phone] Social History Tobacco Use Types Packs/Day Years [...] How often do you attend yarsani or muslim services? Patien t refused 10/29/2020 [...] spends 5 months of theyear down in [place]. # DM II Is well controlled, on [...] Procedure Name Priority Date/Time Associated Comments Diagnosis [place] DEST PREMALIGNANT Routine 10/29/2020 10:01 Lesion Ski n Face Results for this LESN 2-14 AM CDT Keratosis Actini c procedure are in Keratosis the results Seborrheic section. MO DEST PREMALIGNANT Routine 10/29/2020 10:01 Lesion Ski n Face Results for this LESN 2-14 AM CDT Keratosis Actini c procedure are in Keratosis the results Seborrheic section. MO DEST PREMALIGNANT Routine 10/29/2020 10:01 Lesion Ski n Face Results for this LESN 1ST AM CDT Keratosis Actini c procedure are in Keratosis the results Seborrheic section. documented in this encounter Results [place] DEST PREMALIGNANT LESN 1ST, [place] DE[place] PREMALIGNANT LESN 2-14, [place] DEST PREMALIGNANT LESN 2-14 (10/29/2020 10:01 AM [...] Seborrheic documented in this encounter Care Teams Primary Therapist Relationship Specialty Start Date End Date Lexus Fowler M.D., M.P.H. PCP - General 11/14/18 11/13/[address] [place] [address] documented as of this encounter
--- OUTSIDE RECORDS SUMMARY | 2022-02-19 14:02 | XMS_ITS | Encounter Summary ---
:[address] [facility] Address [address] [place] [address] Care Team Providers Name Role Phone Lexus Fowler M.D., M.P.H. Primary Care Provider [phone] Reason for Visit Reason Comments Med Refill Encounter Details Date Type Department Care Team Description 08/19/2020 Refill Department of [facility] Lexus Fowler M.D., Med Refill Medicine, [facility] M.P .H. brandon Hernandez [facility] [address] [facility] [address] [place] [address] [place] [address] [phone] Social History Tobacco Use Types Packs/Day Years [...] How often do you attend voodoo or amish services? Patien t refused 10/29/2020 [...] on filedocumented in this encounter Care Teams Dairy Frozen Manager Relationship Specialty Start Date End Date Lexus Fowler M.D., M.P.H. PCP - General 11/14/18 11/13/21 [address] [place] [address] documented as of this encounter
--- OUTSIDE RECORDS SUMMARY | 2022-02-19 14:02 | XMS_ITS | Encounter Summary ---
:1940 Author Organization [facility] Address [address] [place] [address] Care Team Providers Name Role Phone Lexus Fowler M.D., M.P.H. Primary Care Provider [phone] Reason for Referral Outpatient (Routine) - Closed Specialty Diagnoses / Procedures Referred By Contact Refer red To Contact Family Lexus Grace M.D., Jesus Owusu M.P.H. [address] [place] [phone] Referral ID Status Reason Start Date Expiration Date Visits Requ ested Visits Authorized [id number] Closed 02/14/2020 02/13/2021 1 1 Reason for Visit Reason Comments Diabetes and hypertension Outpatient (Routine) - Closed Specialty Diagnoses / Procedures Referred By Contact Refer red To Contact Family Lexus Grace M.D., Jesus Owusu M.P.H. 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 Diabetes Mellitus Type 2 (HCC); [facility] [address] [facility] Adult; brandon Hernandez [place], [place] Hyperten brook Essential Primary; [place] [address] Hyperlipidemia [address] [facility] [phone] SHADI HERNANDEZ (Work) [phone] Social History Tobacco Use Types Packs/Day Years [...] How often do you attend lutheran or yazdanism services? Patien t refused 10/29/2020 [...] auscultation bilaterally, no wheezing, crackles, rales Skin: [place] and well perfused ASSESSMENT / PLAN #1 [...] Expected date: 08/13/2020 (Before next visit) #3 [facility] Adult - Lipid Panel; Future; Expected [...] Name Type Priority Associated Diagnoses Order S [facility] Medicine Outpatient Referral Routine Expec margoth: office [...] City/State/ZIP Code Phon e Number [facility] - [address] [place], [place] [address] [employer] [facility] [place] [address] [facility] [address] Albumin, Random, Urine (02/14/2020 9:44 AM CDT) athologist Signature Albumin, 9.8 mg/L 02/14/2020 DTL Random, U 3:19 PM CDT Comment: ----ADDITIONAL INFORMATION---- This test has been modified from the man ufacturer's instructions. Its performance characteri stics were determined by [facility] in a manner co nsistent with CLIA [...] City/State/ZIP Code Phon e Number [facility] - 200 [place], [place] [address] [employer] [facility] [place] [address] [place] [address] Lipid Panel (02/14/2020 9:34 AM CDT) [...] M.P.H. LAB BLOOD ADD-ON Performing Organization Address City/[facility]/ZIP Code Phon e Number [facility] - 200 [place], [place] [address] [employer] [facility] [place] [address] [facility] 200 [facility] Sodium (02/14/2020 9:34 AM CDT) P athologist Signature Sodium, P 136 135 - 145 02/14/2020 [facility] mmol/L 10:38 AM CDT Specimen Anatomical Collection Method Collection Time Receive d Time (Source) Location / / Volume Laterality Blood (Blood, 02/14/2020 9:34 AM 02/14/20 20 9:34 Venous) CDT AM CDT Lexus Fowler M.D., M.P.H. LAB BLOOD ADD-ON Performing Organization Address City/State/ZIP Code Phon e Number [facility] [address] [place] [address] [place] [address] [address] [facility] Potassium (02/14/2020 9:34 AM CDT) P athologist Signature Potassium, P 4.3 3.6 - 5.2 02/14/2020 [facility] mmol/L 10:38 AM CDT Specimen Anatomical Collection Method Collection Time Receive d Time (Source) Location / / Volume Laterality Blood (Blood, 02/14/2020 9:34 AM 02/14/20 20 9:34 Venous) CDT AM CDT Lexus Fowler M.D., M.P.H. LAB BLOOD ADD-ON Performing Organization Address City/[facility]/ZIP Code Phon e Number [address] [address] [facility], [place] [phone] [place] [address] (ABNORMAL) Creatinine with Estimated GFR (02/14/2020 9:34 AM CDT) P athologist Signature Creatinine 1.26 0.74 - 02/14/2020 [facility] 1.35 mg/dL 10:38 AM CDT eGFR-Black/Afric 62 >=60 02/14/2020 [facility] an O[place]i mL/min/BSA 10:38 AM CDT Comment: ----ADDITIONAL INFORMATION---- Estimated GFR calculated using the 2009 CKD_EPI creatinine equation. eGFR Non-Black/ 54 (L) >=60 mL/min/BSA 02/14/2020 10:38 AM CDT [facility] [place] Comment: ----ADDITIONAL INFORMATION---- Estimated GFR calculated using the 2009 CKD_EPI creatinine equation. Specimen Anatomical Collection Method Collection Time Receive d Time (Source) Location / / Volume Laterality Blood (Blood, 02/14/2020 9:34 AM 02/14/20 20 9:34 Venous) CDT AM CDT Lexus Fowler M.D., M.P.H. LAB BLOOD ADD-ON Performing Organization Address City/[facility]/ZIP Code Phon e Number [address] [address] [facility] [place], [place] [id number] [place] [address] documented in this encounter Visit Diagnoses Diagnosis Diabetes Mellitus Type 2 With Diabetic N europathy (HCC) - Primary Diabetes Mellitus Type 2 (HCC) Maintenance [facility] Adult Hypertension Essential Primary Hyperlipidemia documented in this encounter Care Teams Buyer Internship Relationship Specialty Start Date End Date Lexus Fowler M.D., M.P.H. PCP - General 11/14/18 11/13/21 [address] [place] [address] documented as of this encounter
--- OUTSIDE RECORDS SUMMARY | 2022-02-19 14:02 | XMS_ITS | Encounter Summary ---
:1940 Author Organization [facility] Address [address] [place] [address] Care Team Providers Name Role Phone Lexus [...] How often do you attend catholic or mandaeism services? Patien t refused 10/29/2020 [...] slept in a skilled nursing (including now)? Education Answer Date Recorded What [...] on filedocumented in this encounter Care Teams Oil Prospecting Observer Relationship Specialty Start Date End Date Lexus Fowler M.D., M.P.H. PCP - General 11/14/18 11/13/21 [address] [place] [address] documented as of this encounter
--- OUTSIDE RECORDS SUMMARY | 2022-02-19 14:02 | XMS_ITS | Encounter Summary ---
:1940 Author Organization [facility] Address [address] [place] [address] Care Team Providers Name Role Phone Lexus Fowler M.D., M.P.H. 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 [address] [place] [address] Referral ID Status Reason Start Date Expiration Date Visits Requ ested Visits Authorized [id number] Closed 01/08/2020 01/07/2021 1 1 Encounter Details Date Type Department Care Team Description 03/06/2020 Procedure visit Department of Belkis Richter Onychomy cosis (Primary Dx); Orthopedic Surgery A, ALEN, C.N.P. Callus [place] Foot; in [place], Dystrophic Toe nail; [place] Diabetes Mellitus Type 2 Wit h Diabetic Polyneuropathy (HCC); [address] [place] [address] Diabetes Mellitus 2 Ulcer To e (HCC); [place], [place] Deformity Cavu s Foot Acquired Right [phone] Social History Tobacco Use Types Packs/Day Years [...] often do you attend oriental orthodox or scientology services? Patien t refused 10/29/2020 Do you belong to any clubs or organizations such as Nabil borrero oriental orthodox groups, Lamahuis, [id number] or athletic groups, or school groups? How [...] and is under the care of Lexus oFwler M.D., M.P.H.. HISTORY OF PRESENT ILLNESS Mr. [...] Dr. Lexus Fowler and Dr. Raul Dunlap ([facility]) February 14, 2020 for activecare management. [...] is also preparing for his trip to [place]. There is no sign of infection. The [...] week in August upon his return from [place]. 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 PCP - General 11/14/18 11/13/21 [address] [place] [address] documented as of this encounter
--- OUTSIDE RECORDS SUMMARY | 2022-02-19 14:02 | XMS_ITS | Encounter Summary ---
:1940 Author Organization [facility] Address [address] [place] [address] Care Team Providers Name Role Phone Lexus Fowler M.D., M.P.H. Primary Care Provider [phone] Encounter Details Date Type Department Care Team [...] How often do you attend druze or restorationist services? Patien t refused 10/29/2020 [...] on filedocumented in this encounter Care Teams Materials Intern Relationship Specialty Start Date End Date Lexus Fowler M.D., M.P.H. PCP - General 11/14/18 11/13/21 [address] [place] [address] documented as of this encounter
--- OUTSIDE RECORDS SUMMARY | 2022-02-19 14:03 | XMS_ITS | Encounter Summary ---
:[address] [facility] Address [address] [place] [address] Care Team Providers Name Role Phone Lexus Fowler M.D., M.P.H. Primary Care Provider [phone] Encounter Details Date Type Department Care Team [...] How often do you attend cheondoism or muslim services? Patien t refused 10/29/2020 [...] on filedocumented in this encounter Care Teams Information Technology Internship Relationship Specialty Start Date End Date Lexus Fowler M.D., M.P.H. PCP - General 11/14/18 11/13/21 [address] [place] [address] documented as of this encounter
--- OUTSIDE RECORDS SUMMARY | 2022-02-19 14:03 | XMS_ITS | Encounter Summary ---
:1940 Author Organization [facility] Address [address] [place] [address] Care Team Providers Name Role Phone Lexus Fowler M.D., M.P.H. 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 [address] [place] [address] Referral ID Status Reason Start Date Expiration Date Visits Requ ested Visits Authorized [id number] Closed 11/15/2019 11/14/2020 1 1 Reason for Visit Outpatient (Routine) - Closed Specialty Diagnoses / Procedures Referred By Contact Refer red To Contact Orthopedic Surgery Roslyn Veliz APRN, Rocheste r [facility] C.N.P. Referral ID Status Reason Start Date Expiration Date Visits Requ ested Visits Authorized [id number] Closed 10/02/2019 10/01/2020 1 1 Encounter Details Date Type Department Care Team Description 11/15/2019 Procedure visit Department of Belkis Richter Onevelyn cosis (Primary Dx); Orthopedic Surgery ALEN Lozano, C.N.P. Callus [place] Foot; in [place], Dystrophic Toe nail; [place] Diabetes Mellitus Type 2 Wit h Diabetic Polyneuropathy (HCC); [address] [facility] Diabetes Mellitus 2 Ulcer To e (HCC) [place] [address] Social History Tobacco Use Types Packs/Day Years [...] How often do you attend episcopal or roman catholic services? Patien t refused 10/29/2020 Do you belong to any clubs or organizations such as Nabil borrero episcopal groups, unions, fraBooknGo or athletic groups, or school groups? How [...] Dr. Lexus Fowler and Dr. Raul Dunlap ([facility]) September 28, 2019 for active care [...] Priority Associated Diagnoses Order S [facility] Orthopedic Surgery Outpatient Referral Routine Onychomyc osis Expected: office visit Callus [place] Foot 01/16/2020 (clinic) Dystrophic Toena [place] (Approximate), Diabetes Mellitus Type Expir es: 2 With Diabetic 11/14/2022 Polyneuropathy ( HCC) Diabetes Mellitus 2 Ulcer Toe (HCC) documented as of this encounter Visit Diagnoses Diagnosis Onychomycosis - Primary Callus [place] Foot Dystrophic Toenail Diabetes Mellitus Type 2 With Diabetic P olyneuropathy (HCC) Diabetes Mellitus 2 Ulcer Toe (HCC) documented in this encounter Care Teams Insurance Analyst Relationship Specialty Start Date End Date Lexus Fowler M.D., M.P.H. PCP - General 11/14/18 11/13/21 [address] [place] [address] documented as of this encounter
--- OUTSIDE RECORDS SUMMARY | 2022-02-19 14:03 | XMS_ITS | Encounter Summary ---
:1940 Author Organization [facility] Address [address] [place] [address] Care Team Providers Name Role Phone Lexus Fowler M.D., M.P.H. Primary Care Provider Reason for Referral Outpatient (Routine) - Closed Specialty Diagnoses / Procedures Referred By Contact Refer red To Contact Vascular Medicine Sherry Slater APRN, [place] C.NYandy, M.S.N. [address] [place] [phone] Referral ID Status Reason Start Date Expiration Date Visits Requ ested Visits Authorized [id number] Closed 01/15/2020 01/14/2021 1 1 utpatient (Routine) - Closed Specialty Diagnoses / Procedures Referred By Contact Refer red To Contact Vascular Medicine Sherry Slater APRN, [place] C.N.PClarence, M.S.N. [address] [place] [phone] Referral ID Status Reason Start Date Expiration Date Visits Requ ested Visits Authorized [id number] Closed 01/15/2020 01/14/2021 1 1 Reason for Visit Outpatient (Routine) - Closed Specialty Diagnoses / Procedures Referred By Contact Refer red To Contact Vascular Medicine Diagnoses Diabetes Mellitus 2 Ulcer Toe (HCC) Diabetes Mellitus Type 2 With Diabetic Neuropathy (HCC) Cellulitis Foot Right Bette Man, [facility] Kei LOWRY, M.S.N. [address] [place] [address] Referral ID Status Reason Start Date Expiration Date Visits Requ ested Visits Authorized [id number] Closed 12/04/2019 12/03/2020 1 1 Encounter Details Date Type Department Care Team Description 01/15/2020 Office Visit Department of Vascular Sherry Slater, Diabetes Mellitus 2 Ulcer Toe (HCC) (Primary Dx); Medicine in [place], Kei LOWRY, Diab etes Mellitus Type 2 With Diabetic Neuropathy (HCC); [place] M.S.N. Diabetes Mellitus Type 2 (HCC) [address] [place] [phone] Social History Tobacco Use Types Packs/Day Years [...] How often do you attend gnosticism or mandaeism services? Patien t refused 10/29/2020 [...] through 14 - You may wear shoes horse race timer in your house only. Beyond day 14 - If no problems have developed, you may begin wearing them outside the house. If you have any wound care questions or concerns please contact the [facility] Center at [phone]. If you need to cancel, reschedule, or schedule a wound care appointment please call [phone]. Provider Signature Sherry Slater APRN, C.N.P., M.S.N. documented in this encounter Progress Notes Sherry Slater APRN, C.N.P., M.S.N. - 01/15/2020 9:00 AM CDT REFERRAL SOURCE Bette Juarez APRN, C.N.P., M.S.N. [address] [place] [address] SUBJECTIVE CHIEF COMPLAINT / REASON FOR VISIT [...] that he recently ordered diabetic shoes/insert through [facility]. The shoes should be coming in shortly. He reports he consistently built up callous on the toe. Well living in [place], he had been seen podiatry for cares. [...] six weeks. He will be leaving for [place] mid to late February. He notes that he will be seen with a local warehouse logistics coordinator there who also does wound cares. He [...] sharp debridement under 20 cm performed by SALES REPRESENTATIVE [employer]. Billing does not reflect debridement time. Sherry Slater APRN, C.N.P., M.S.N. documented in this encounter Plan of Treatment Scheduled Referrals Name Type Priority Associated Diagnoses Order S [facility] Vascular Medicine Outpatient Referral Routine [...] (HCC) documented in this encounter Care Teams Cancer Program Consultant Relationship Specialty Start Date End Date Lexus Fowler M.D., M.P.H. PCP - General 11/14/18 11/13/21 [address] [place] [address] documented as of this encounter
--- OUTSIDE RECORDS SUMMARY | 2022-02-19 14:03 | XMS_ITS | Encounter Summary ---
:1940 Author Organization [facility] Address [address] [place] [address] Care Team Providers Name Role Phone Lexus Fowler M.D., M.P.H. Primary Care Provider [phone] Reason for Visit Reason Comments Med Refill Encounter Details Date Type Department Care Team Description 01/14/2020 Refill Department of Family Medicine, Enedelia Tafoya M.D. Med Refill [place], in [address] [place] [address] [address] [facility] [place] [address] [phone] Social History Tobacco Use Types Packs/Day Years [...] often do you attend roman catholic or worship services? Patien t refused 10/29/2020 [...] Primary documented in this encounter Care Teams Assignment Desk Assistant Relationship Specialty Start Date End Date Lexus Fowler M.D., M.P.H. PCP - General 11/14/18 11/13/21 [address] [place] [address] documented as of this encounter
--- OUTSIDE RECORDS SUMMARY | 2022-02-19 14:03 | XMS_ITS | Encounter Summary ---
:1940 Author Organization [facility] Address [address] [place] [address] Care Team Providers Name Role Phone Lexus Fowler M.D., M.P.H. Primary Care Provider [phone] Reason for Visit Reason Comments COVID Inquiry Encounter Details Date Type Department Care Team Description 11/16/2019 Clinical Communication Department of Lexus Fowler Family MedicineMaikol M.D., M.P.H. [facility] [address] [facility] [address] [address] [facility] [phone] [place], [place] (Work) [address] [phone] Social History Tobacco Use Types Packs/Day Years [...] How often do you attend cheondoism or baptist services? Patien t refused 10/29/2020 [...] - 11/16/2019 8:42 AM CDT ([facility] and [place] [facility] locations only: If the patient is not having symptoms and is requesting COVID-19 Nasal Swab testing only, use the process listed in the COVID-19 Patient Requesting COVID PCR Test OTG COVID-19 [place] Patient Requesting COVID PCR Test). In the past 30 days have you had a swab for COVID that tested positive? no Route reply to: [facility] Scheduling Scheduling Contact Number: [phone] documented in this encounter Plan of Treatment Not on filedocumented as of this encounter Visit Diagnoses Not on filedocumented in this encounter Care Teams Mail Processing Machine Operator Relationship Specialty Start Date End Date Lexus Fowler M.D., M.P.H. PCP - General 11/14/18 11/13/[address] [place] [address] documented as of this encounter
--- OUTSIDE RECORDS SUMMARY | 2022-02-19 14:03 | XMS_ITS | Encounter Summary ---
:1940 Author Organization [facility] Address [address] [place] [address] Care Team Providers Name Role Phone Lexus Fowler M.D., M.P.H. Primary Care Provider Reason for Visit Reason Comments Immunizations Outpatient (Routine) - Closed Specialty Diagnoses / Procedures Referred By Contact Refer red To Contact Lexus Fowler M.D., M.P.H. [facility] [address] [place] [phone] Referral ID Status Reason Start Date Expiration Date Visits Requ ested Visits Authorized [id number] Closed 09/28/2019 09/27/2020 1 1 Encounter Details Date Type Department Care Team Description 12/26/2019 Nurse Only Department of [facility] Lu Fowler M.D., M.P.H. [address] [place] [phone] Immunizations Medicine, [facility] Wily Fernández, L.P.N. [address] [place] [phone] [place], [place] [address] [place] [address] Social History Tobacco Use Types Packs/Day Years [...] How often do you attend taoism or episcopalian services? Patien t refused 10/29/2020 [...] Primary documented in this encounter Care Teams E Business Consultant Relationship Specialty Start Date End Date Lexus Fowler M.D., M.P.H. PCP - General 11/14/18 11/13/21 [address] [place] [address] documented as of this encounter
--- OUTSIDE RECORDS SUMMARY | 2022-02-19 14:03 | XMS_ITS | Encounter Summary ---
:1940 Author Organization [facility] Address [address] [place] [address] Care Team Providers Name Role Phone Lexus Fowler M.D., M.P.H. 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 [address] [place] [address] Referral ID Status Reason Start Date Expiration Date Visits Requ ested Visits Authorized [id number] Closed 10/30/2019 10/29/2020 1 1 Reason for Visit Outpatient (Routine) - Closed Specialty Diagnoses / Procedures Referred By Contact Refer red To Contact Vascular Medicine Emelyn Diamond APRN, [facility] C.N.PClarence, D.N.P. 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 Patien t refused [...] 14 - You may wear shoes time signal wirer in your house only. Beyond day 14 - If no problems have developed, you may begin wearing them outside the house. If you have any wound care questions or concerns please contact the Vascular Center at [phone]. If you need to cancel, reschedule, or schedule a wound care appointment please call [phone]. Provider Signature Bette Juarez APRN, C.N.Letha., M.S.N. documented in this encounter Progress Notes Bette Juarez APRN, C.N.P., M.S.N. - 10/30/2019 2:30 PM CDT REFERRAL SOURCE Emelyn Diamond APRN, C.N.Letha., D.N.P. [address] [place] [phone] SUBJECTIVE CHIEF COMPLAINT / REASON FOR VISIT Re-evaluation of right distal 1st toe ulcer. Patient seen at the [facility] wound care clinic. HISTORY OF PRESENT [...] Name Type Priority Associated Diagnoses Order S [facility] Vascular Medicine Outpatient Referral Routine Diabetes Mellitu [...] Right documented in this encounter Care Teams Warp Worker Relationship Specialty Start Date End Date Lexus Fowler M.D., M.P.H. PCP - General 11/14/18 11/13/21 [address] [place] [address] documented as of this encounter
--- OUTSIDE RECORDS SUMMARY | 2022-02-19 14:03 | XMS_ITS | Encounter Summary ---
:1940 Author Organization [facility] Address [address] [place] [address] Care Team Providers Name Role Phone Lexus Fowler M.D., M.P.H. 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 ALEN, C.N.P. 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 ALEN, C.N.P. 200 [place] [address] Referral ID Status Reason Start Date Expiration Date Visits Requ ested Visits Authorized [id number] Closed 11/15/2019 11/14/2020 1 1 Encounter Details Date Type Department Care Team Description 01/08/2020 Procedure visit Department of Belkis Richter (Primary Dx); Orthopedic Surgery ALEN Lozano, C.N.P. Callus [place] Foot; in [place], Dystrophic Toe nail; [place] Diabetes Mellitus Type 2 Wit h Diabetic Polyneuropathy (HCC); [address] Diabetes Mellitus 2 Ulcer To e (HCC); [place], [place] Deformity Cavu s Foot Acquired Right [id number] Social History Tobacco Use Types Packs/Day Years [...] How often do you attend uatsdin or yazidi services? Patien t refused 10/29/2020 [...] Dr. Lexus Fowler and Dr. 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 PCP - General 11/14/18 11/13/21 [address] [place] [address] documented as of this encounter
--- OUTSIDE RECORDS SUMMARY | 2022-02-19 14:03 | XMS_ITS | Encounter Summary ---
:1940 Author Organization [facility] Address [address] [place] [address] Care Team Providers Name Role Phone Lexus Fowler M.D., M.P.H. Primary Care Provider [phone] Reason for Visit Reason Comments Communication Dr. Lexus Fowler Encounter Details Date Type Department Care Team Description 12/25/2019 Clinical Department of Lexus Fowler (Dr. Hampton Family MedicineMaikol M.D., M.P.H. Lexus Fowler ) [facility] [address] [facility] in [place], [place] [address] 411 [facility] [phone] [place], [place] (Work) [phone] Social History Tobacco Use [...] How often do you attend religion or sabianism services? Patien t refused 10/29/2020 [...] state that he used [facility] in [place] for his shoes. He will contact [facility] in [place] to resend the needed paperwork. While on the phone, that patient also asked why he was needing to get the Hep B vaccine series. The patient stated, no one else I know is having to get one. After reading the [facility] vaccine schedule, the patient believes it might [...] CDT Caller: Vinayak Vazquez Relationship to Patient: [phone] Callback Number: [phone] Pharmacy: [facility] Request/Details: Pt called to check on status of Rx for diabetic shoes sent from pharmacy. Pt wants to know if AUTH or signature completed by PCP & sent back. Please advise, pt wants to waste picker Rx from pharmacy tomorrow. Thank you. documented in this encounter Plan of Treatment Not on filedocumented as of this encounter Visit Diagnoses Not on filedocumented in this encounter Care Teams Engraving Patternmaker Relationship Specialty Start Date End Date Lexus Fowler M.D., M.P.H. PCP - General 11/14/18 11/13/21 [address] [place] [address] documented as of this encounter
--- OUTSIDE RECORDS SUMMARY | 2022-02-19 14:03 | XMS_ITS | Encounter Summary ---
:1940 Author Organization [facility] Address [address] [place] [address] Care Team Providers Name Role Phone Lexus Fowler M.D., M.P.H. 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i LOW[facility], M.S.N. 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 Kei LOWRY, M.S.N. 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 Patien t refused 10/29/2020 [...] 14 - You may wear shoes time stamp assembler in your house only. Beyond day 14 - If no problems have developed, you may begin wearing them outside the house. If you have any wound care questions or concerns please contact the Vascular Center at [phone]. If you need to cancel, reschedule, or schedule a wound care appointment please call [phone]. Provider Signature Bette Juarez APRN, C.N.P., M.S.N. documented in this encounter Progress Notes Bette Juarez APRN, C.N.P., M.S.N. - 12/04/2019 9:00 AM CDT REFERRAL SOURCE Bette Juarez APRN, C.N.P., M.S.N. [address] [place] [address] SUBJECTIVE CHIEF COMPLAINT / REASON FOR VISIT [...] of an infection. He has modified an uux-ibd-[id number] pair of shoes as the Darco shoes [...] Name Type Priority Associated Diagnoses Order S [facility] Vascular Medicine Outpatient Referral Routine Diabetes [...] Right documented in this encounter Care Teams Title I Math Tutor Relationship Specialty Start Date End Date Lexus Fowler M.D., M.P.H. PCP - General 11/14/18 11/13/21 [address] [place] [address] documented as of this encounter
--- OUTSIDE RECORDS SUMMARY | 2022-02-19 14:03 | XMS_ITS | Encounter Summary ---
:1940 Author Organization [facility] Address [address] [place] [address] Care Team Providers Name Role Phone Lexus Fowler M.D., M.P.H. Primary Care Provider [phone] Reason for Visit Reason Comments ALETHEA Nurse Line Encounter Details Date Type Department Care Team Description 12/22/2019 Clinical Communication Department of Lexus Fowler Nurse Joan Family MedicineMaikol M.D., M.P.H. [facility] [address] [facility] [address] [facility] [phone] [place], [place] (Work) [phone] Social History Tobacco Use Types Packs/Day Years [...] How often do you attend latter-day or judaism services? Patien t refused 10/29/2020 [...] on filedocumented in this encounter Care Teams Under Presser Relationship Specialty Start Date End Date Lexus Fowler M.D., M.P.H. PCP - General 11/14/18 11/13/21 [address] [place] [address] documented as of this encounter
--- OUTSIDE RECORDS SUMMARY | 2022-02-19 14:03 | XMS_ITS | Encounter Summary ---
:1940 Author Organization [facility] Address [address] [place] [address] Care Team Providers Name Role Phone Lexus Fowler M.D., M.P.H. Primary Care Provider [phone] Encounter Details Date Type Department Care Team [...] How often do you attend orthodoxy or taoism services? Patien t refused 10/29/2020 [...] on filedocumented in this encounter Care Teams Teacher Physically Impaired Relationship Specialty Start Date End Date Lexus Fowler M.D., M.P.H. PCP - General 11/14/18 11/13/21 [address] [place] [address] documented as of this encounter
--- OUTSIDE RECORDS SUMMARY | 2022-02-19 14:03 | XMS_ITS | Encounter Summary ---
:1940 Author Organization [facility] Address [address] [place] [address] Care Team Providers Name Role Phone Lexus Fowler M.D., M.P.H. Primary Care Provider [phone] Reason for Visit Reason Comments COVID Inquiry Encounter Details Date Type Department Care Team Description 11/13/2019 Clinical Communication Department of Lexus Fowler Family MedicineMaikol M.D., M.P.H. [facility] [address] [facility] [address] 411 [facility] [phone] [place], [place] (Work) [address] [phone] Social History Tobacco Use Types Packs/Day Years [...] How often do you attend episcopal or buddhism services? Patien t refused 10/29/2020 Do you belong to any clubs or organizations such as Nabil borreor episcopal groups, unions, fraternal or athletic groups, [...] - 11/13/2019 10:27 AM CDT ([facility] and [facility] locations only: If the patient is not having symptoms and is requesting COVID-19 Nasal Swab testing only, use the process listed in the COVID-19 Patient Requesting COVID PCR Test OTG COVID-19 [place] Patient Requesting COVID PCR Test). 1. Do [...] last 14 days? no Route reply to: [facility] scheduling Scheduling Contact Number: [phone] documented in this encounter Plan of Treatment Not on filedocumented as of this encounter Visit Diagnoses Not on filedocumented in this encounter Care Teams Electrical Drafter Relationship Specialty Start Date End Date Lexus Fowler M.D., M.P.H. PCP - General 11/14/18 11/13/21 [address] [place] [address] documented as of this encounter
--- OUTSIDE RECORDS SUMMARY | 2022-02-19 14:03 | XMS_ITS | Encounter Summary ---
:1940 Author Organization [facility] Address [address] [place] [address] Care Team Providers Name Role Phone Lexus Fowler M.D., M.P.H. Primary Care Provider [phone] Encounter Details Date Type Department Care Team [...] How often do you attend sabianist or presybeterian services? Patien t refused 10/29/2020 [...] on filedocumented in this encounter Care Teams Environmental Science Technician Relationship Specialty Start Date End Date Lexus Fowler M.D., M.P.H. PCP - General 11/14/18 11/13/21 [address] [place] [address] documented as of this encounter
--- OUTSIDE RECORDS SUMMARY | 2022-02-19 14:03 | XMS_ITS | Encounter Summary ---
:1940 Author Organization [facility] Address [address] [place] [address] Care Team Providers Name Role Phone Lexus Fowler M.D., M.P.H. Primary Care Provider [phone] Encounter Details Date Type Department Care Team [...] How often do you attend uatsdin or bahai services? Patien t refused 10/29/2020 [...] on filedocumented in this encounter Care Teams Oceanography Teacher Relationship Specialty Start Date End Date Lexus Fowler M.D., M.P.H. PCP - General 11/14/18 11/13/21 [address] [place] [address] documented as of this encounter
--- OUTSIDE RECORDS SUMMARY | 2022-02-19 14:04 | XMS_ITS | Encounter Summary ---
:1940 Author Organization [facility] Address [address] [place] [address] Care Team Providers Name Role Phone Lexus Fowler M.D., M.P.H. Primary Care Provider [phone] Reason for Referral Outpatient (Routine) - Closed Specialty Diagnoses / Procedures Referred By Contact Refer red To Contact Orthopedic Surgery Roslyn Veliz APRN, [place] C.N.P. Referral ID Status Reason Start Date Expiration Date Visits Requ ested Visits Authorized [id number] Closed 08/16/2019 08/15/2020 1 1 Reason for Visit Outpatient (Routine) - Closed Specialty Diagnoses / Procedures Referred By Contact Refer red To Contact Orthopedic Surgery Adan Mosquera, [place] [facility] P.A.-CClarence [address] [place] [address] Referral ID Status Reason Start Date Expiration Date Visits Requ ested Visits Authorized [id number] Closed 03/06/2019 03/05/2020 1 1 Encounter Details Date Type Department Care Team Description 08/16/2019 Procedure visit Department of Roslyn Veliz, Diabetes Mellitus 2 Ulcer Toe (HCC) (Primary Dx); Orthopedic Surgery ALEN, C.N.P. Dystrophic Toenail; in [place], Diabetes Melli tus Type 2 With Diabetic Polyneuropathy (HCC); [place] (Work) Callus [place] Foot [address] [facility] [phone] [place], [place] (Fax) [phone] Social History Tobacco Use Types Packs/Day Years [...] How often do you attend sikhism or protestant services? Patien t refused 10/29/2020 [...] accompanied by his presents to the [facility] for trimming of his dystrophic toenails and paring a pre ulcerative callus. The patient wears New Balance shoes with molded inserts. He states that he gets these insert from a place out town and that Medicare covers the cost. He has had custom inserts from [employer] [facility] in the past. A1C was 6.6 on 03/08/19. In May of this year, the patient had his callus pared states that a large chunk was removed withsubsequent bleeding and draining for the next month. On 07/10/19, he was seen the [facility] in [place] for a infected right [...] peripheral neuropathy: Last seen Dr. Shivani Fowler [facility] on 03/10/19. OBJECTIVE PHYSICAL EXAM [...] Skin temperature changes: Bilateral feet are warm [place]/calluses: Hyperkeratotic buildup over the right hallux plantar [...] does not cover, he may use an qzbg-nvi-wqjnhqu antibiotic ointment. He states that he does [...] 2 With Diabetic P olyneuropathy (HCC) Callus [place] Foot documented in this encounter Care Teams Addiction Nurse Relationship Specialty Start Date End Date Lexus Fowler M.D., M.P.H. PCP - General 11/14/18 11/13/21 [address] [place] [address] documented as of this encounter
--- OUTSIDE RECORDS SUMMARY | 2022-02-19 14:04 | XMS_ITS | Encounter Summary ---
:[address] [facility] Address [address] [place] [address] Care Team Providers Name Role Phone Lexus Fowler M.D., M.P.H. Primary Care Provider [phone] Reason for Referral Outpatient (Routine) - Closed Specialty Diagnoses / Procedures Referred By Contact Refer red To Contact Family Medicine Lexus Fowler M.D., [facility] M.P.H. [address] [place] [phone] Referral ID Status Reason Start Date Expiration Date Visits Requ ested Visits Authorized [id number] Closed 09/25/2019 09/24/2020 1 1 Encounter Details Date Type Department Care Team Description 09/25/2019 Orders Only Department of [facility] Lexus Fowler, Diabetes Mellitus Medicine, [facility] Alonso, M.P. H. Type 2 With Diabetic Clinic [place], [place] [address] [place] [address] Neuropathy (HCC) [place], [place] (Primary Dx) [address] [facility] [address] [place] [address] [phone] Social History Tobacco Use Types Packs/Day Years [...] How often do you attend cheondoism or sikh services? Patien t refused 10/29/2020 Do you belong to any clubs or organizations such as Nabil borrero cheondoism groups, unions, [employer]ing [employer] or athletic groups, or school groups? How [...] Name Type Priority Associated Diagnoses Order S [facility] Medicine Outpatient Referral Routine Expec margoth: [...] City/State/ZIP Code Phon e Number [facility] - 200 [place], [place] [address] [facility] [place] [place] [address] [facility] 200 [facility] documented in this encounter Visit Diagnoses Diagnosis Diabetes Mellitus Type 2 With Diabetic N europathy (HCC) - Primary documented in this encounter Care Teams Cloth Framer Relationship Specialty Start Date End Date Lexus Fowler M.D., M.P.H. PCP - General 11/14/18 11/13/[address] [place] [address] documented as of this encounter
--- OUTSIDE RECORDS SUMMARY | 2022-02-19 14:04 | XMS_ITS | Encounter Summary ---
:1940 Author Organization [facility] Address [address] [place] [address] Care Team Providers Name Role Phone Lexus Fowler M.D., M.P.H. Primary Care Provider [phone] Encounter Details Date Type Department Care Team [...] 10/29/2020 relatives? How often do you attend tenriism or baptist services? Patien t refused 10/29/2020 Do you belong to any clubs or organizations such as Nabil borrero tenriism groups, unions, fraternal or athletic groups, or [...] on filedocumented in this encounter Care Teams Agricultural Technical Officer Relationship Specialty Start Date End Date Lexus Fowler M.D., M.P.H. PCP - General 11/14/18 11/13/21 [address] [place] [address] documented as of this encounter
--- OUTSIDE RECORDS SUMMARY | 2022-02-19 14:04 | XMS_ITS | Encounter Summary ---
:1940 Author Organization [facility] Address [address] [place] [address] Care Team Providers Name Role Phone Lexus Fowler M.D., M.P.H. Primary Care Provider [phone] Encounter Details Date Type Department Care Team [...] How often do you attend shinto or taoist services? Patien t refused 10/29/2020 [...] on filedocumented in this encounter Care Teams Food Beverage Manager Relationship Specialty Start Date End Date Lexus Fowler M.D., M.P.H. PCP - General 11/14/18 11/13/21 [address] [place] [address] documented as of this encounter
--- OUTSIDE RECORDS SUMMARY | 2022-02-19 14:04 | XMS_ITS | Encounter Summary ---
:1940 Author Organization [facility] Address [address] [place] [address] Care Team Providers Name Role Phone Lexus Fowler M.D., M.P.H. Primary Care Provider [phone] Reason for Visit Reason Comments Med Refill Encounter Details Date Type Department Care Team Description 05/12/2019 Refill Department of [facility] Kasi Alvarez M.D. Med Refill Medicine, [facility] [address] [place] [address] [place] [address] 411 [place] [address] [phone] Social History Tobacco Use Types Packs/Day Years [...] How often do you attend zoroastrian or druze services? Patien t refused 10/29/2020 Do you belong to any clubs or organizations such as Not aske d zoroastrian groups, unions, fraternal or athletic groups, [...] Hyperlipidemia documented in this encounter Care Teams Podiatrist Relationship Specialty Start Date End Date Lexus Fowler M.D., M.P.H. PCP - General 11/14/18 11/13/21 [address] [place] [address] documented as of this encounter
--- OUTSIDE RECORDS SUMMARY | 2022-02-19 14:04 | XMS_ITS | Encounter Summary ---
:1940 Author Organization [facility] Address [address] [place] [address] Care Team Providers Name Role Phone Lexus Fowler M.D., M.P.H. Primary Care Provider [phone] Encounter Details Date Type Department Care Team Description 09/26/2019 Hospital Encounter Department of Lexus Fowler Diab etes Mellitus Laboratory Medicine Alonso Lassiter, M.P .H. Type 2 With [address] Diabetic Neuropathy [place], [place] ([facility]) 411 [facility] [address] [place], [place] [phone] [address] (Work) [phone] Social History Tobacco Use Types Packs/Day Years [...] How often do you attend protestant or oriental orthodox services? Patien t refused [...] With Diabetic Neuropathy times a day. ([facility]) ONETOUCH ULTRA BLUE TEST daily. 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 PCP - General 11/14/18 11/13/[address] [place] [address] documented as of this encounter
--- OUTSIDE RECORDS SUMMARY | 2022-02-19 14:04 | XMS_ITS | Encounter Summary ---
:1940 Author Organization [facility] Address [address] [place] [address] Care Team Providers Name Role Phone Lexus Fowler M.D., M.P.H. Primary Care Provider [phone] Reason for Visit Reason Comments Med Refill Encounter Details Date Type Department Care Team Description 03/15/2019 Refill Department of [facility] Kasi Alvarez M.D. Med Refill Medicine, [facility] [address] [place] [address] [place] [address] 411 [facility] [place] [address] [phone] Social History Tobacco Use Types Packs/Day Years [...] How often do you attend confucianism or methodist services? Patien t refused 10/29/2020 [...] on filedocumented in this encounter Care Teams Sludge Control Operator Relationship Specialty Start Date End Date Lexus Fowler M.D., M.P.H. PCP - General 11/14/18 11/13/21 [address] [place] [address] documented as of this encounter
--- OUTSIDE RECORDS SUMMARY | 2022-02-19 14:04 | XMS_ITS | Encounter Summary ---
:1939 Author Organization [facility] Address [address] [place] [address] Care Team Providers Name Role Phone Lexus Fowler M.D., M.P.H. Primary Care Provider [phone] Reason for Visit Reason Comments Triage Encounter Details Date Type Department Care Team Description 08/16/2019 Clinical Communication Department of Vascular Jaelyn Varela, [facility] [address] [address] [phone] Social History Tobacco Use Types Packs/Day Years [...] How often do you attend islam or jainism services? Patien t refused 10/29/2020 [...] foot ulcer Notes: ortho is referring Saulo [phone] Please route all to the [facility] SCHEDULING pool upon response to this message. documented in this encounter Plan of Treatment Not on filedocumented as of this encounter Visit Diagnoses Not on filedocumented in this encounter Care Teams Manager Latin Relationship Specialty Start Date End Date Lexus Fowler M.D., M.P.H. PCP - General 11/14/18 11/13/21 [address] [place] [address] documented as of this encounter
--- OUTSIDE RECORDS SUMMARY | 2022-02-19 14:04 | XMS_ITS | Encounter Summary ---
:1940 Author Organization [facility] Address [address] [place] [address] Care Team Providers Name Role Phone Lexus Fowler M.D., M.P.H. Primary Care Provider [phone] Reason for Visit Reason Comments COVID Inquiry Encounter Details Date Type Department Care Team Description 09/27/2019 Clinical Communication Department of Lexus Fowler Family MedicineMaikol M.D., M.P.H. [facility] [address] [facility] [address] 411 [facility] [phone] [place], [place] (Work) [address] [phone] Social History Tobacco Use Types Packs/Day Years [...] How often do you attend hinduism or yarsanism services? Patien t refused 10/29/2020 [...] on filedocumented in this encounter Care Teams Flight Nurse Relationship Specialty Start Date End Date Lexus Fowler M.D., M.P.H. PCP - General 11/14/18 11/13/21 [address] [place] [address] documented as of this encounter
--- OUTSIDE RECORDS SUMMARY | 2022-02-19 14:04 | XMS_ITS | Encounter Summary ---
:1940 Author Organization [facility] Address [address] [place] [address] Care Team Providers Name Role Phone Lexus Fowler M.D., M.P.H. Primary Care Provider [phone] Reason for Visit Reason Onset Date Comments Med Refill Med Refill 05/23/2019 Encounter Details Date Type Department Care Team Description 05/23/2019 Refill Department of [facility] Med Alvarez, Med Refill; Med Refill Medicine, [facility] Alonso [facility], in [address] [place] [address] [address] [facility] [address] [place] [address] [phone] Social History Tobacco Use Types Packs/Day Years [...] How often do you attend adventism or caodaism services? Patien t refused 10/29/2020 [...] Hyperlipidemia documented in this encounter Care Teams Labor Relations Manager Relationship Specialty Start Date End Date Lexus Fowler M.D., M.P.H. PCP - General 11/14/18 11/13/21 [address] [place] [address] documented as of this encounter
--- OUTSIDE RECORDS SUMMARY | 2022-02-19 14:04 | XMS_ITS | Encounter Summary ---
:1939 Author Organization [facility] Address [address] [place] [address] Care Team Providers Name Role Phone Lexus [...] 10/29/2020 relatives? How often do you attend jewish or orthodox services? Patien t refused 10/29/2020 Do you belong to any clubs or organizations such as Nabil borrero jewish groups, unions, fraternal or athletic groups, or [...] on filedocumented in this encounter Care Teams Mails Supervisor Relationship Specialty Start Date End Date Lexus Fowler M.D., M.P.H. PCP - General 11/14/18 11/13/21 [address] [place] [address] documented as of this encounter
--- OUTSIDE RECORDS SUMMARY | 2022-02-19 14:04 | XMS_ITS | Encounter Summary ---
:1939 Author Organization [facility] Address [address] [place] [address] Care Team Providers Name Role Phone Lexus [...] How often do you attend caodaism or mandaen services? Patien t refused 10/29/2020 [...] on filedocumented in this encounter Care Teams Button Facing Machine Operator Relationship Specialty Start Date End Date Lexus Fowler M.D., M.P.H. PCP - General 11/14/18 11/13/21 [address] [place] [address] documented as of this encounter
--- OUTSIDE RECORDS SUMMARY | 2022-02-19 14:04 | XMS_ITS | Encounter Summary ---
:1939 Author Organization [facility] Address [address] [place] [address] Care Team Providers Name Role Phone Lexus Fowler M.D., M.P.H. Primary Care Provider [phone] Encounter Details Date Type Department Care Team Description 10/03/2019 Clinical Communication Department of [facility] Duarte Veliz, Medicine, [facility] SURGICAL INSTRUMENT REPAIR SPECIALIST, C.N. P. [place], in [phone] [place], [place] (Work) 411 [facility] [phone] [place] [address] (Fax) [phone] Social History Tobacco Use Types Packs/Day Years [...] How often do you attend confucianism or congregational services? Patien t refused 10/29/2020 [...] on filedocumented in this encounter Care Teams Junior Oracle Dba Relationship Specialty Start Date End Date Lexus Fowler M.D., M.P.H. PCP - General 11/14/18 11/13/21 [address] [place] [address] documented as of this encounter
--- OUTSIDE RECORDS SUMMARY | 2022-02-19 14:04 | XMS_ITS | Encounter Summary ---
:1939 Author Organization [facility] Address [address] [place] [address] Care Team Providers Name Role Phone Lexus Fowler M.D., M.P.H. Primary Care Provider [phone] Reason for Referral Outpatient (Routine) - Closed Specialty Diagnoses / Procedures Referred By Contact Refer red To Contact Lexus Fowler M.D., M.P.H. [facility] [address] [place] [phone] Referral ID Status Reason Start Date Expiration Date Visits Requ ested Visits Authorized [id number] Closed 09/28/2019 09/27/2020 1 1 utpatient (Routine) - Closed Specialty Diagnoses / Procedures Referred By Contact Refer red To Contact Lexus Kern M.D.[facility] M.P.H. [address] [place] [phone] Referral ID Status Reason Start Date Expiration Date Visits Requ ested Visits Authorized [id number] Closed 09/28/2019 09/27/2020 1 1 Reason for Visit Reason Comments Diabetes Hypertension Outpatient (Routine) - Closed Specialty Diagnoses / Procedures Referred By Contact Refer red To Contact Lexus Kern M.D., Jesus Owusu M.P.H. 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 Hypert[facility] [address] [facility] [address] [address] [facility] [place] [address] Social History Tobacco Use Types [...] How often do you attend lutheran or lutheran services? Patien t refused 10/29/2020 [...] November, and hewill get this done in [place]. Denies numbness or tingling in his feet. Reports that he regularly sees a paper counter, and infective seeing his normal paper counter tomorrow, he typically sees her every month [...] auscultation bilaterally, no wheezing, crackles, rales Skin: Quail and well perfused ASSESSMENT / PLAN #1 [...] - Primary Care nurse visit (clinic) - [facility]; Immunization; Future; Expected date: 09/28/2019 Associated [...] I encouraged him to continue these [facility]. 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 PCP - General 11/14/18 11/13/[address] [place] [address] documented as of this encounter
--- OUTSIDE RECORDS SUMMARY | 2022-02-19 14:04 | XMS_ITS | Encounter Summary ---
:1939 Author Organization [facility] Address [address] [place] [address] Care Team Providers Name Role Phone Lexus Fowler M.D., M.P.H. Primary Care Provider Encounter Details Date Type Department Care Team Description 03/20/2019 Clinical Communication Department of [facility] Willie [facility], [facility] Alonso Abrams [place], in [address] [place] [address] 411 [facility] [phone] [place] [address] (Work) [phone] Social History Tobacco Use Types Packs/Day Years [...] How often do you attend sikhism or baptist services? Patien t refused 10/29/2020 [...] Vijaya Vargas L.P.N. - 03/20/2019 4:15 PM RIG SUPERINTENDENT ----- Message from Enedelia Tapia M.D. sent at 03/20/2019 4:09 PM RIG SUPERINTENDENT ----- Please clarify what medication and use a prescription refill encounter so I can access it. ----- Message ----- From: Vijaya Vargas L.P.N. Sent: 03/17/2019 4:35 PM RIG SUPERINTENDENT To: Enedelia Tapia M.D. Pended Rx for you to review. Patient states that pharmacy did not receive order sent on 03/10. Please advise. SUPERINTENDENT documented in this encounter Plan of Treatment Not on filedocumented as of this encounter Visit Diagnoses Not on filedocumented in this encounter Care Teams Db2 Systems Programmer Relationship Specialty Start Date End Date Lexus Fowler M.D., M.P.H. PCP - General 11/14/18 11/13/21 [address] [place] [address] documented as of this encounter
--- OUTSIDE RECORDS SUMMARY | 2022-02-19 14:04 | XMS_ITS | Encounter Summary ---
:1939 Author Organization [facility] Address [address] [place] [address] Care Team Providers Name Role Phone Lexus Fowler M.D., M.P.H. Primary Care Provider [phone] Encounter Details Date Type Department Care Team Description 10/06/2019 Hospital Encounter Department of Emelyn Diamond es Mellitus 2 Laboratory Medicine D, MATERIAL MAN, Ulcer To e (HCC) and Pathology, C.N.P., D.N.P. [facility], in [address] [place] [address] [place] [address] [place], [place] [phone] [address] (Work) [phone] Social History Tobacco Use Types Packs/Day Years [...] How often do you attend yarsanism or voodoo services? Patien t refused 10/29/2020 [...] D.N.P. LAB BLOOD ADD-ON Performing Organization Address City/[facility] Phon e Number [facility] - 200 [place], [place] [address] [facility] [place] [address] CBC without Differential (10/06/2019 10:54 AM [...] D.N.P. LAB BLOOD ADD-ON Performing Organization Address City/[facility] Phon e Number [facility] - 200 [place], [place] [address] [facility] [place] [address] documented in this encounter Visit Diagnoses Diagnosis Diabetes Mellitus 2 Ulcer Toe (HCC) documented in this encounter Care Teams Raw Mill Operator Relationship Specialty Start Date End Date Lexus Fowler M.D., M.P.H. PCP - General 11/14/18 11/13/[address] [place] [address] documented as of this encounter
--- OUTSIDE RECORDS SUMMARY | 2022-02-19 14:04 | XMS_ITS | Encounter Summary ---
:1939 Author Organization [facility] Address [address] [place] [address] Care Team Providers Name Role Phone Lexus Fowler M.D., M.P.H. Primary Care Provider [phone] Encounter Details Date Type Department Care Team [...] How often do you attend christianity or zoroastrian services? Patien t refused 10/29/2020 [...] on filedocumented in this encounter Care Teams Vehicle Safety Inspector Relationship Specialty Start Date End Date Lexus Fowler M.D., M.P.H. PCP - General 11/14/18 11/13/21 [address] [place] [address] documented as of this encounter
--- OUTSIDE RECORDS SUMMARY | 2022-02-19 14:04 | XMS_ITS | Encounter Summary ---
:1939 Author Organization [facility] Address [address] [place] [address] Care Team Providers Name Role Phone Lexus Fowler M.D., M.P.H. Primary Care Provider [phone] Reason for Visit Reason Comments Appointment Encounter Details Date Type Department Care Team Description 09/25/2019 Clinical Communication Department of [facility] Marlen Fowler, Appointment Medicine, Estiven Gupta, M.P.H. [facility] [address] [place] [address] 411 [facility] [place] [address] Social History Tobacco Use Types [...] How often do you attend synagogue or jain services? Patien t refused 10/29/2020 Do you belong to any clubs or organizations such as Not jelani d synagogue groups, unions, fraternal or athletic [...] CDT Caller: Vinayak Relationship to Patient:Self Callback Number:[phone] Pharmacy:NA Request/Details:Calling today stating he thinks he [...] on filedocumented in this encounter Care Teams Back End Developer Relationship Specialty Start Date End Date Lexus Fowler M.D., M.P.H. PCP - General 11/14/18 11/13/21 [address] [place] [address] documented as of this encounter
--- OUTSIDE RECORDS SUMMARY | 2022-02-19 14:04 | XMS_ITS | Encounter Summary ---
:[address] [facility] Address [address] [place] [address] Care Team Providers Name Role Phone Lexus Fowler M.D., M.P.H. Primary Care Provider Reason for Referral MRI/CAT/PET Scan (Routine) - Closed Specialty Diagnoses / Procedures Referred By Contact Refer red To Contact Radiology Diagnoses Diabetes Mellitus 2 Ulcer Toe (HCC) Emelyn Diamond [facility] Procedures MR Foot Right without IV Contrast C.N.P., D.N.P. [address] [place] [address] Referral ID Status Reason Start Date Expiration Date Visits Requ ested Visits Authorized [id number] Closed 10/06/2019 10/05/2020 1 1 Reason for Visit MRI/CAT/PET Scan (Routine) - Closed Specialty Diagnoses / Procedures Referred By Contact Refer red To Contact Radiology Diagnoses Diabetes Mellitus 2 Ulcer Toe (HCC) Emelyn Diamond [facility] Procedures MR Foot Right without IV Contrast C.N.P., D.N.P. [address] [place] [address] Referral ID Status Reason Start Date Expiration Date Visits Requ ested Visits Authorized [id number] Closed 10/06/2019 10/05/2020 1 1 Encounter Details Date Type Department Care Team Description 10/10/2019 Hospital Encounter Department of Lobo, Emelyn Diabet es Mellitus 2 Radiology, Viraj D, GRANITE POLISHER, Ulcer Toe ( HCC) Building, in C.N.P., D.N.P. [place], [place] 200 [facility] 200 [place] [phone] Social History Tobacco Use Types Packs/Day Years [...] How often do you attend taoist or mu-ism services? Patien t refused 10/29/2020 [...] day. ([facility]) Jaunt ULTRA BLUE TEST daily. for 3 01/07/2018 [...] No eliu dence of associated osteomyelitis. Emelyn Diaomnd APRN, C.N.P., D.N.P. IMG MRI PROCEDURE S documented in this encounter Visit Diagnoses Diagnosis Diabetes Mellitus 2 Ulcer Toe (HCC) documented in this encounter Care Teams Sales Mgr Relationship Specialty Start Date End Date Lexus Fowler M.D., M.P.H. PCP - General 11/14/18 11/13/21 [address] [place] [address] documented as of this encounter
--- OUTSIDE RECORDS SUMMARY | 2022-02-19 14:04 | XMS_ITS | Encounter Summary ---
:1939 Author Organization [facility] Address [address] [place] [address] Care Team Providers Name Role Phone Lexus Fowler M.D., M.P.H. Primary Care Provider [phone] Reason for Visit Reason Comments Med Refill Encounter Details Date Type Department Care Team Description 03/20/2019 Refill Department of [facility] Dinah Vargas RClarenceNClarence Med Refill Medicine, [facility] brandon Hernandez M [facility] [address] [place] [address] Social History Tobacco Use Types Packs/Day Years [...] How often do you attend advent or nondenominational services? Patien t refused 10/29/2020 [...] Vijaya Vargas L.P.N. - 03/20/2019 4:18 PM VAMP MAKER Patient requested Amlodipine (Norvasc) 5 mg prescription and states that pharmacy did not receive iton 03/10. MAKER documented in this encounter Plan of Treatment Not on filedocumented as of this encounter Visit Diagnoses Diagnosis Hypertension Essential Primary documented in this encounter Care Teams Bus Driver Supervisor Relationship Specialty Start Date End Date Lexus Fowler M.D., M.P.H. PCP - General 11/14/18 11/13/21 [address] [place] [address] documented as of this encounter
--- OUTSIDE RECORDS SUMMARY | 2022-02-19 14:04 | XMS_ITS | Encounter Summary ---
:1939 Author Organization [facility] Address [address] [place] [address] Care Team Providers Name Role Phone Lexus Fowler M.D., M.P.H. Primary Care Provider [phone] Encounter Details Date Type Department Care Team Description 08/14/2019 Clinical Communication Department of Angi Ricks Orthopedic Surgery in [facility], C.N.P.[place], [place] D.N.P. [address] [place] [phone] Social History Tobacco Use Types Packs/Day Years [...] How often do you attend bahai or congregation services? Patien t refused 10/29/2020 [...] on filedocumented in this encounter Care Teams Linen Tech Relationship Specialty Start Date End Date Lexus Fowler M.D., M.P.H. PCP - General 11/14/18 11/13/21 [address] [place] [address] documented as of this encounter
--- OUTSIDE RECORDS SUMMARY | 2022-02-19 14:04 | XMS_ITS | Encounter Summary ---
:1939 Author Organization [facility] Address [address] [place] [address] Care Team Providers Name Role Phone Lexus Fowler M.D., M.P.H. Primary Care Provider [phone] Reason for Visit Reason Onset Date Comments Med Refill 05/23/2019 Encounter Details Date Type Department Care Team Description 05/23/2019 Refill Department of Family Lexus Fowler M.D., Med Refill Medicine, [facility] M.P .H. brandon Hernandez M [facility] [address] [facility] [address] [place] [address] [place] [address] [phone] Social History Tobacco Use Types Packs/Day Years [...] following references were used: nursing clinical judgement STRIAL LOCOMOTIVE OPERATOR Telephone Encounter - Marshal Martínez R.N. - 05/23/2019 2:13 PM CST Pharmacy was contact to be sure that they received the prescription. They were able to confirm that it was received. STRIAL LOCOMOTIVE OPERATOR Telephone Encounter - Marshal Martínez R.N. - 05/23/2019 1:31 PM CST Lulu, from the patient's pharmacy [facility], called stating that they never received the prescription for Rosuvastatin. The patient is nearly out and needs a refill. [facility] is requesting that a new prescription be sent to them. STRIAL LOCOMOTIVE OPERATOR Telephone Encounter - Shashi Doan - 05/23/2019 12:10 PM CST Caller:Vinayak Call back number:[phone] Name of medication:rosuvastatin (CRESTOR) Strength:10 mg tablet Frequency:Take 1 tablet (10 mg total) by mouth daily Quantity:NA PCP: Malcolm Pharmacy:[facility]ita STRIAL LOCOMOTIVE OPERATOR documented in this encounter Plan of Treatment Not on filedocumented as of this encounter Visit Diagnoses Diagnosis Hyperlipidemia documented in this encounter Care Teams Machine Pecan Gatherer Relationship Specialty Start Date End Date Lexus Fowler M.D., M.P.H. PCP - General 11/14/18 11/13/21 [address] [place] [address] documented as of this encounter
--- OUTSIDE RECORDS SUMMARY | 2022-02-19 14:04 | XMS_ITS | Encounter Summary ---
:1939 Author Organization [facility] Address [address] [place] [address] Care Team Providers Name Role Phone Lexus Fowler M.D., M.P.H. Primary Care Provider Encounter Details Date Type Department Care Team Description 03/17/2019 Medication Department of Lexus Fowler on Management Family MedicineMaikol M.D., M.P.H. Essential Primary [facility] [address] [place] [phone] [address] [facility] [phone] [place], [place] (Work) [address] Social History Tobacco Use [...] How often do you attend yarsanism or taoism services? Patien t refused 10/29/2020 [...] Primary documented in this encounter Care Teams Maintenance Tech Relationship Specialty Start Date End Date Lexus Fowler M.D., M.P.H. PCP - General 11/14/18 11/13/21 [address] [place] [address] documented as of this encounter
--- OUTSIDE RECORDS SUMMARY | 2022-02-19 14:04 | XMS_ITS | Encounter Summary ---
:1940 Author Organization [facility] Address [address] [place] [address] Care Team Providers Name Role Phone Lexus Fowler M.D., M.P.H. Primary Care Provider [phone] Reason for Referral Outpatient (Routine) - Closed Specialty Diagnoses / Procedures Referred By Contact Refer red To Contact Orthopedic Surgery Roslyn Veliz APRN, [place] C.N.P. Referral ID Status Reason Start Date Expiration Date Visits Requ ested Visits Authorized [id number] Closed 10/02/2019 10/01/2020 1 1 Outpatient (Routine) - Closed Specialty Diagnoses / Procedures Referred By Contact Refer red To Contact Vascular Medicine Diagnoses Diabetes Mellitus 2 Ulcer Toe (HCC) Roslyn Veliz APRN, [place] C.N.P. Referral ID Status Reason Start Date Expiration Date Visits Requ ested Visits Authorized [id number] Closed 10/02/2019 10/01/2020 1 1 Reason for Visit Outpatient (Routine) - Closed Specialty Diagnoses / Procedures Referred By Contact Refer red To Contact Orthopedic Surgery Roslyn Veliz APRN, [place] C.N.P. 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 P. Dystrophic Toenail; [place], [place] [phone] Diabetes Mellitus Type 2 Wit h Diabetic Neuropathy (HCC); [address] (Work) Callus Olin Foot [place], [place] [phone] (Fax) [phone] Social History Tobacco Use Types Packs/Day Years [...] How often do you attend sabianism or evangelical services? Patien t refused 10/29/2020 [...] Progress Notes Roslyn Veliz, ALEN, C.N.P. - 10/02/2019 1:30 PM CDT SUBJECTIVE Pain reported: 0/10 CHIEF COMPLAINT / REASON FOR VISIT Vinayak Vazquez is a 79 y.o. male presents for trimming of toenails and paring calluses and is under the care of Lexus Fowler M.D., M.P.H.. HISTORY OF PRESENT ILLNESS Mr. 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 The patient wears New Balance shoes with molded inserts. He states that he getsthese insert from a place out town and that Medicare covers the cost. He has had custom inserts from[facility] in the past. During his visit with [...] month. On 07/10/19, he was seen the [facility] in [place] for a [...] peripheral neuropathy: Last seen Dr. Shivani Fowler [facility] on 09/28/19. OBJECTIVE PHYSICAL EXAM General: [...] Skin temperature changes: Bilateral feet are warm Olin/calluses: Hyperkeratotic buildup over the right hallux plantar [...] 2 With Diabetic N europathy (HCC) Callus [place]lin Foot Diabetes Mellitus 2 Ulcer Toe (HCC) documented in this encounter Care Teams Police Superintendent Relationship Specialty Start Date End Date Lexus Fowler M.D., M.P.H. PCP - General 11/14/18 11/13/21 [address] [place] [address] documented as of this encounter
--- OUTSIDE RECORDS SUMMARY | 2022-02-19 14:04 | XMS_ITS | Encounter Summary ---
:1940 Author Organization [facility] Address [address] [place] [address] Care Team Providers Name Role Phone Lexus Fowler M.D., M.P.H. Primary Care Provider [phone] Reason for Visit Reason Comments COVID Nurse Line Encounter Details Date Type Department Care Team Description 09/30/2019 Clinical Communication Department of Roslyn Veliz CO VID Nurse Line Orthopedic Surgery PROGRAMMER ANALYST CONSULTANT, C.N.P. in [place], [place] (Work) [address] [facility] [phone] [place], [place] (Fax) [phone] Social History Tobacco Use [...] How often do you attend protestant or restoration services? Patien t refused 10/29/2020 [...] on filedocumented in this encounter Care Teams Coil Shaper Relationship Specialty Start Date End Date Lexus Fowler M.D., M.P.H. PCP - General 11/14/18 11/13/21 [address] [place] [address] documented as of this encounter
--- OUTSIDE RECORDS SUMMARY | 2022-02-19 14:04 | XMS_ITS | Encounter Summary ---
:1940 Author Organization [facility] Address [address] [place] [address] Care Team Providers Name Role Phone Lexus Fowler M.D., M.P.H. Primary Care Provider [phone] Encounter Details Date Type Department Care Team Description 10/05/2019 Clinical Communication Department of [facility] Marlen Fowler, [facility], Estiven Gupta, M.P.H. [facility] [address] [place] [phone] [place] [address] [place] [address] Social History Tobacco Use Types [...] How often do you attend orthodox or uatsdin services? Patien t refused 10/29/2020 Do you belong to any clubs or organizations such as Not aske d orthodox groups, unions, fraternal or athletic groups, [...] to: CHRISTOPHER SOLIS SCHEDULING Scheduling Contact Number: [phone] documented in this encounter Plan of Treatment Not on filedocumented as of this encounter Visit Diagnoses Not on filedocumented in this encounter Care Teams Piercing Mill Operator Relationship Specialty Start Date End Date Lexus Fowler M.D., M.P.H. PCP - General 11/14/18 11/13/21 [address] [place] [address] documented as of this encounter
--- OUTSIDE RECORDS SUMMARY | 2022-02-19 14:04 | XMS_ITS | Encounter Summary ---
:1940 Author Organization [facility] Address [address] [place] [address] Care Team Providers Name Role Phone Lexus Fowler M.D., M.P.H. Primary Care Provider [phone] Encounter Details Date Type Department Care Team Description 10/02/2019 Hospital Encounter Department of Roslyn Veliz Diabet es Mellitus 2 Radiology, Clark LOWRY C.N.P. Ulcer Toe ([facility]) Building, in [phone] [place], [place] (Work) [address] [facility] [phone] [place], [place] (Fax) [phone] Social History Tobacco Use [...] 10/29/2020 relatives? How often do you attend jehovah's witness or uatsdin services? Patien t refused 10/29/2020 Do you belong to any clubs or organizations such as Nabil borrero jehovah's witness groups, unions, fraternal or athletic groups, or [...] Diabetic Neuropathy times a day. ([facility]) ONETOUCH ULTRA BLUE TEST daily. for [...] (HCC) documented in this encounter Care Teams Middleware Architect Relationship Specialty Start Date End Date Lexus Fowler M.D., M.P.H. PCP - General 11/14/18 11/13/21 [address] [place] [address] documented as of this encounter
--- OUTSIDE RECORDS SUMMARY | 2022-02-19 14:04 | XMS_ITS | Encounter Summary ---
:1940 Author Organization [facility] Address [address] [place] [address] Care Team Providers Name Role Phone Lexus Fowler M.D., M.P.H. Primary Care Provider [phone] Reason for Referral Outpatient (Routine) - Closed Specialty Diagnoses / Procedures Referred By Contact Refer red To Contact Vascular Medicine [facility]elyn Diamond [facility] C.N.P., D.N.P. [address] [place] [phone] Referral ID Status Reason Start Date Expiration Date Visits Requ ested Visits Authorized [id number] Closed 10/06/2019 10/05/2020 1 1 RI/CAT/PET Scan (Routine) - Closed Specialty Diagnoses / Procedures Referred By Contact Refer red To Contact Radiology Diagnoses Diabetes Mellitus 2 Ulcer Toe (HCC) [facility]elyn [facility] Procedures MR Foot Right without IV Contrast C.N.P., D.N.P. [address] [place] [address] [phone] Referral ID Status Reason Start Date Expiration Date Visits Requ ested Visits Authorized [id number] Closed 10/06/2019 10/05/2020 1 1 Reason for Visit Outpatient (Routine) - Closed Specialty Diagnoses / Procedures Referred By Contact Refer red To Contact Vascular Medicine Diagnoses Diabetes Mellitus 2 Ulcer Toe (HCC) Roslyn Veliz APRN, [facility] C.N.P. 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 Cellulitis Foot Right [place] [address] [place] [phone] Social History Tobacco Use Types Packs/Day Years [...] How often do you attend confucianist or muslim services? Elizabeth t refused 10/29/2020 Do you belong to any clubs or organizations such as Nabil viera confucianist groups, unions, fraternal or athletic groups, [...] 14 - You may wear shoes multimedia specialist in your house only. Beyond day 14 - If no problems have developed, you may begin wearing them outside the house. If you have any wound care questions or concerns please contact the Vascular Center at [phone]. If you need to cancel, reschedule, or schedule a wound care appointment please call [phone]. Provider Signature Emelyn Diamond APRN, C.N.P., D.N.P. documented in this encounter Consult Notes Emelyn Diamond APRN, C.N.P., D.N.P. - 10/06/2019 10:00 AM CDT SUBJECTIVE REFERRAL INFORMATION Roslyn Veliz APRN, C.N.P. [address] [place] [address] CHIEF COMPLAINT/REASON FOR VISIT Initial evaluation of [...] he was seen at a clinic in [place] for an infected right great toe callus [...] Name Type Priority Associated Diagnoses Order S [facility] Vascular Medicine Outpatient Referral Routine Exp ected: [...] radiographs. 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 IMG MRI PROCEDURE S (ABNORMAL) CRP (C-Reactive Protein) (10/06/2019 10:54 AM CDT) athologist Signature C-Reactive 14.4 (H) <=8.0 mg/L 10/06/2019 DTL Protein (CRP), 1:10 PM CDT S Specimen Anatomical Collection Method Collection Time Receive d Time (Source) Location / / Volume Laterality Blood (Blood, 10/06/2019 10:54 10/06/2019 Venous) AM CDT 12:48 PM CDT Emelyn Diamond APRN, C.N.P., D.N.P. LAB BLOOD ADD-ON Performing Organization Address City/State/ZIP Code Phon e Number [facility] - [address] [place] [phone] [facility] [place] [address] Laboratories-[facility] 200 [facility] CBC without Differential (10/06/2019 10:54 AM CDT) [...] CDT Leukocytes 7.2 3.4 - 9.6 10/06/2019 DT x10(9)/L 12:04 PM CDT Specimen Anatomical Collection Method Collection Time Receive d Time (Source) Location / / Volume Laterality Blood (Blood, 10/06/2019 10:54 10/06/2019 Venous) AM CDT 11:51 AM CDT Emelyn Diamond APRN, C.N.P., D.N.P. LAB BLOOD ADD-ON Performing Organization Address City/State/ZIP Code Phon e Number 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 PCP - General 11/14/18 11/13/[address] [place] [address] documented as of this encounter
--- OUTSIDE RECORDS SUMMARY | 2022-02-19 14:05 | XMS_ITS | Encounter Summary ---
:1940 Author Organization [facility] Address [address] [place] [address] Care Team Providers Name Role Phone Kristal Galeana M.D. Primary Care Provider Reason for Referral Outpatient (Routine) - Closed Specialty Diagnoses / Procedures Referred By Contact Refer red To Contact Family Medicine Kristal Galeana M.D. [address] [place] [address] Referral ID Status Reason Start Date Expiration Date Visits Requ ested Visits Authorized [id number] Closed 09/22/2018 09/22/2019 1 1 Reason for Visit Reason Comments Diabetes Outpatient (Routine) - Closed Specialty Diagnoses / Procedures Referred By Contact Refer red To Contact Family Medicine Diagnoses Diabetes Mellitus Type 2 (HCC) Med Alvarez Piqua Sonya Gupta [address] [place] [address] Referral ID Status Reason Start Date Expiration Date Visits Requ ested Visits Authorized [id number] Closed 03/04/2018 03/04/2019 1 1 Encounter Details Date Type Department Care Team Description 09/22/2018 Office Visit Department of Kristal Ramon Diabe gil 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 Diabetes Mellitus Type 2 (HCC); Clinic [address] Hyperte nsion Essential Primary; [place], [place] W Callus [place] Foot; [address] [place] [address] [phone] Social History Tobacco Use Types Packs/Day Years [...] How often do you attend spiritism or jewish services? Patien t refused 10/29/2020 [...] tonumbness/tingling or skin concerns. He sees a propeller mechanic regularly. All immunizations up to date. #3 [...] face that we would have him try [id number] hydrocortisone cream to help with the irritation on the face but only for a week to prevent skin thinning. This was written out for him on his AVS. Future Appointments Date Time Provider Department Center 10/03/2018 2:30 PM Roslyn Veliz APRN, C.N.P. ORS LINDA Rodas documented in this encounter Plan of Treatment Scheduled Referrals Name Type Priority Associated Diagnoses Order S [facility] Outpatient Referral Routine Expec margoth: office visit 03/25/2019 (clinic) - Self (Approximate ), Expires: 09/22/2021 documented as of this encounter Results (ABNORMAL) Microalbumin, Random, Urine (03/08/2019 8:47 AM CDT) P athologist Signature Microalbumin 13.2 mg/L 03/08/2019 POWER 1:44 PM CDT Comment: ----ADDITIONAL INFORMATION---- This test has been modified from the valentin hurtado's instructions. Its performance characteri stics were determined by [facility] in a manner co nsistent with CLIA [...] e Number [facility] - [address] [place] [address] Formerly [facility] PSA (Prostate-Specific Antigen), Diagnostic (03/08/2019 8:40 AM CDT) athologist Signature Prostate-Specif 0.76 <=6.5 ng/mL 03/08/2019 [facility] ic Ag 2:17 PM CDT Comment: ----ADDITIONAL INFORMATION---- The testing method is an electrochemilum inescence assay manufactured by [employer] and performed on the Modular or [...] [facility] [address] [address] Formerly [facility] (ABNORMAL) Hemoglobin A1c (03/08/2019 8:40 AM CDT) athologist Signature Hemoglobin A1c, 6.6 (H) 4.0 - 5.6 03/08/2019 [facility] B % 12:46 PM CDT Comment: Hemoglobin [...] Organization Address City/State/ZIP Code Phon e Number [facility] [address] [address] Formerly [facility] [address] documented in this encounter Visit Diagnoses Diagnosis 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 PCP - General Family Medicine 01/19/18 11/13/18 documented as of this encounter
--- OUTSIDE RECORDS SUMMARY | 2022-02-19 14:05 | XMS_ITS | Encounter Summary ---
:1940 Author Organization [facility] Address [address] [place] [address] Care Team Providers Name Role Phone Kristal [...] How often do you attend pentecostalism or anglican services? Patien t refused 10/29/2020 Do you belong to any clubs or organizations such as Not jelani borrero pentecostalism groups, unions, fraternal or athletic [...] on filedocumented in this encounter Care Teams Tool Or Die Drawing Checker Relationship Specialty Start Date End Date Kristal Galeana M.D. PCP - General Family Medicine 01/19/18 11/13/18 documented as of this encounter
--- OUTSIDE RECORDS SUMMARY | 2022-02-19 14:05 | XMS_ITS | Encounter Summary ---
:1940 Author Organization [facility] Address [address] [place] [address] Care Team Providers Name Role Phone Kristal Galeana M.D. Primary Care Provider Encounter Details Date Type Department Care Team Description 09/02/2018 Hospital Encounter Department of Med Alvarez Mellitus Type 2 (HCC); Laboratory Medicine Alonso Gardner Hyperlipidemia; in [address] Hypertension Essential Primary [place], [place] 411 [facility] [address] [place], [place] [phone] [address] (Work) [phone] Social History Tobacco Use Types Packs/Day Years [...] How often do you attend mandaen or voodoo services? Patien t refused 10/29/2020 [...] athologist Signature Creatinine 1.06 0.74 - 09/02/2018 [facility] 1.35 mg/dL 9:02 AM T [facility] eGFR-Black/Afri 77 >=60 09/02/2018 [facility] can Central African mL/min/BSA 9:02 AM T [facility] Comment: ----ADDITIONAL INFORMATION---- Estimated GFR calculated using the 2009 CKD_EPI creatinine equation. eGFR Non-Black/ 66 >=60 mL/min/BSA 09/02/2018 9:02 AM [facility] Comment: ----ADDITIONAL INFORMATION---- Estimated GFR calculated using the 2009 CKD_EPI creatinine equation. Specimen Anatomical Collection Method Collection Time Receive d Time (Source) Location / / Volume Laterality Blood (Blood, 09/02/2018 8:15 AM 09/03/19 8:15 Venous) CDT AM CDT Med Alvarez M.D. LAB BLOOD ADD-ON Performing Organization Address City/[facility] Code Phon e Number [address] [address] Sodium (09/02/2018 8:15 AM CDT) athologist Signature Sodium, P 136 135 - 145 09/02/2018 [facility] mmol/L 9:02 AM CDT [facility] Specimen Anatomical Collection Method Collection Time Receive d Time (Source) Location / / Volume Laterality Blood (Blood, 09/02/2018 8:15 AM 09/03/19 8:15 Venous) CDT AM CDT Med Alvarez M.D. LAB BLOOD ADD-ON Performing Organization Address City/[facility]/ZIP [facility] Phon e Number [address] [address] Potassium (09/02/2018 8:15 AM CDT) athologist Signature Potassium, P 4.4 3.6 - 5.2 09/02/2018 [facility] mmol/L 9:02 AM CDT [facility] Specimen Anatomical Collection Method Collection Time Receive d Time (Source) Location / / Volume Laterality Blood (Blood, 09/02/2018 8:15 AM 09/03/19 8:15 Venous) CDT AM CDT Med Alvarez M.D. LAB BLOOD ADD-ON Performing Organization Address City/[facility] Phon e Number [address] [address] Lipid Panel (09/02/2018 8:15 AM CDT) athologist Signature Cholesterol, 112 mg/dL 09/02/2018 [facility] Total 1:24 PM CDT [facility] Comment: ----REFERENCE VALUE---- Desirable: < 200 Borderline high: 200 - 239 High: > or = 240 Triglycerides 95 mg/dL 09/02/2018 1:24 PM CDT [facility] Comment: ----REFERENCE VALUE---- Normal: <150 Borderline high: 150-199 High: 200-499 Very high: > or =500 Cholesterol, HDL, S 49 >=40 mg/dL 09/02/2018 1:24 PM CDT [facility] Calculated LDL 44 mg/dL 09/02/2018 1:24 PM CDT [facility] Comment: ----REFERENCE VALUE---- Desirable: <100 Above Desirable: 100-129 Borderline high: 130-159 High: 160-189 Very high: > or =190 Cholesterol, Non-HDL, 63 mg/dL 09/02/2018 1:24 PM CDT [facility] Comment: ----REFERENCE VALUE---- Desirable: <130 Above Desirable: 130-159 Borderline high: 160-189 High: 190-219 Very high: > or =220 Specimen Anatomical Collection Method Collection Time Receive d Time (Source) Location / / Volume Laterality Blood (Blood, 09/02/2018 8:15 AM 09/03/19 Venous) CDT 12:41 PM CDT Med Alvarez M.D. LAB BLOOD ADD-ON Performing Organization Address City/[facility]/ZIP Code Phon e Number [facility] - [address] (ABNORMAL) Hemoglobin A1c (09/02/2018 8:15 AM CDT) [facility] Method Time Signature Hemoglobin A1c, 6.7 (H) 4.0 - 5.6 09/02/2018 [facility] B % 3:47 PM CDT [facility] Comment: Hemoglobin A1c values greater [...] M.D. LAB BLOOD ADD-ON Performing Organization Address City/[facility]/ZIP Code Phon e Number [facility] - [address] documented in this encounter Visit Diagnoses Diagnosis Diabetes Mellitus Type 2 (HCC) Hyperlipidemia Hypertension Essential Primary documented in this encounter Care Teams Patent Agent Relationship Specialty Start Date End Date Kristal Galeana M.D. PCP - General Family Medicine 01/19/18 11/13/18 documented as of this encounter
--- OUTSIDE RECORDS SUMMARY | 2022-02-19 14:05 | XMS_ITS | Encounter Summary ---
:1940 Author Organization [facility] Address [address] [place] [address] Care Team Providers Name Role Phone Kristal Galeana M.D. Primary Care Provider Encounter Details Date Type Department Care Team Description 01/26/2018 Orders Only Department of Family Kristal Galeana Diabe gil Mellitus Type 2 (HCC) (Primary Dx); Medicine, Estiven Osborn M.D. Hypertension Essential Primary; Clinic [address] [place] [address] [address] [facility] [phone] [place] [address] (Work) [phone] Social History Tobacco Use Types Packs/Day Years [...] How often do you attend taoism or yarsanism services? Patien t refused 10/29/2020 [...] CDT) athologist Signature Microalbumin 9.3 mg/L 02/28/2018 [facility] 2:38 PM CDT LABORATORIES [facility] Comment: ----ADDITIONAL INFORMATION---- This test has been modified from the man ufacturer's instructions. Its performance characteri stics were determined by [facility] in a manner co nsistent with CLIA requirements. This test has not bee n cleared or approved by the U.S. Food and Drug Admin istration. Creatinine 125 mg/dL 02/28/2018 2:38 PM CDT [facility] PUS Albumin/Creatinine 7 <17 mg/g 02/28/2018 2:38 PM CD T [facility]ATORIES [facility] PUS Specimen Anatomical Collection Method Collection Time Receive d Time (Source) Location / / Volume Laterality Urine (Urine, 02/28/2018 8:40 AM 02/29/20 18 1:31 Clean Catch) CDT PM CDT Kristal Galeana M.D. LAB URINE ORDERABLES Performing Organization Address City/State/ZIP Code Phon e Number [facility]ORATORIES - [address] [place], [place] [address] [facility] PSA (Prostate-Specific Antigen), Diagnostic (02/28/2018 7:58 AM CDT) athologist Signature Prostate-Speci 0.98 <=6.5 02/28/2018 [facility] fic Ag ng/mL 2:29 PM CDT [facility]ATORIES [facility] Comment: ----ADDITIONAL INFORMATION---- The testing [...] Organization Address City/State/ZIP Code Phon e Number [facility] - [address] [place], [place] [address] [facility] Sodium (02/28/2018 7:58 AM CDT) athologist Signature Sodium, P 136 135 - 145 02/28/2018 [facility] mmol/L 9:11 AM [facility] Specimen Anatomical Collection Method Collection Time Receive d Time (Source) Location / / Volume Laterality Blood (Blood, 02/28/2018 7:58 AM 02/29/20 18 7:58 Venous) CDT AM CDT Kristal Galeana M.D. LAB BLOOD ADD-ON Performing Organization Address City/[facility]/ZIP Code Phon e Number [facility] [address] [place] [address] Creatinine with Estimated GFR (02/28/2018 7:58 AM CDT) athologist Signature Creatinine 1.09 0.74 - 02/28/2018 [facility] 1.35 mg/dL 9:11 AM [facility] eGFR-Black/Afri 75 >=60 02/28/2018 [facility] can [place] mL/min/BSA 9:11 AM [facility] Comment: ----ADDITIONAL INFORMATION---- Estimated GFR calculated using the 2009 CKD_EPI creatinine equation. eGFR Non-Black/ 65 >=60 mL/min/BSA 02/28/2018 9:11 AM [facility] [place] [facility] Comment: ----ADDITIONAL INFORMATION---- Estimated GFR calculated using the 2009 CKD_EPI creatinine equation. Specimen Anatomical Collection Method Collection Time Receive d Time (Source) Location / / Volume Laterality Blood (Blood, 02/28/2018 7:58 AM 10/15/20 18 7:58 Venous) CDT AM CDT Kristal Galeana M.D. LAB BLOOD ADD-ON Performing Organization Address City/[facility]/ZIP Code Phon e Number [facility] [address] [place] [address] (ABNORMAL) Hemoglobin A1c (02/28/2018 7:58 AM CDT) Patholo gist Method Time Signature Hemoglobin A1c, 6.7 (H) 4.0 - 5.6 02/28/2018 [facility] B % 1:36 PM CDT LABORATORIES - [facility] Comment: Hemoglobin A1c values greater [...] Organization Address City/State/ZIP Code Phon e Number [facility] - [address] [place], [place] [address] [facility] Potassium (02/28/2018 7:58 AM CDT) P athologist Signature Potassium, P 4.3 3.6 - 5.2 02/28/2018 [facility] mmol/L 9:11 AM CDT [facility] Specimen Anatomical Collection Method Collection Time Receive d Time (Source) Location / / Volume Laterality Blood (Blood, 02/28/2018 7:58 AM 02/29/20 18 7:58 Venous) CDT AM CDT Kristal Galeana M.D. LAB BLOOD ADD-ON Performing Organization Address City/State/ZIP Code Phon e Number [facility] [address] [place] [address] documented in this encounter Visit Diagnoses Diagnosis Diabetes Mellitus Type 2 (HCC) - Primary Hypertension Essential Primary General Medical Examination Adult documented in this encounter Care Teams Head Sulfide Operator Relationship Specialty Start Date End Date Kristal Galeana M.D. PCP - General Family Medicine 01/19/18 11/13/18 documented as of this encounter
--- OUTSIDE RECORDS SUMMARY | 2022-02-19 14:05 | XMS_ITS | Encounter Summary ---
:1940 Author Organization [facility] Address [address] [place] [address] Care Team Providers Name Role Phone Lexus Fowler M.D., M.P.H. Primary Care Provider [phone] Reason for Referral Outpatient (Routine) - Closed Specialty Diagnoses / Procedures Referred By Contact Refer red To Contact Orthopedic Surgery Adan Mosquera [facility] [place]istan [address] [place] [address] Referral ID Status Reason Start Date Expiration Date Visits Requ ested Visits Authorized [id number] Closed 03/06/2019 03/05/2020 1 1 Reason for Visit Outpatient (Routine) - Closed Specialty Diagnoses / Procedures Referred By Contact Refer red To Contact Orthopedic Surgery Roslyn Veliz APRN, [facility] C.N.PClarence Referral ID Status Reason Start Date Expiration Date Visits Requ ested Visits Authorized [id number] Closed 12/12/2018 12/12/2019 1 1 Encounter Details Date Type Department Care Team Description 03/06/2019 Procedure visit Department of Adan Mosquera orn Foot (Primary Dx); Orthopedic Surgery in [place] Dystro phic Toenail; [place], [place] Diabetes Mellitus Type 2 Wit h Diabetic Neuropathy (HCC) [address] [place] [phone] Social History Tobacco Use Types Packs/Day Years [...] How often do you attend temple or orthodox services? Patien t refused 10/29/2020 [...] AM CDT SUBJECTIVE REFERRAL INFORMATION Roslyn Veliz, CAKE INSPECTOR, C.N.P. [address] [place] [address] CHIEF COMPLAINT/REASON FOR VISIT Callus paring, right great toe. HISTORY OF PRESENT ILLNESS Mr. Vazquez is a very pleasant 78 y.o. male who returns to [facility] Podiatry for paring of his recurrent [...] pain: 0/10. ASSESSMENT / PLAN #1 Callus [place] Foot #2 Dystrophic Toenail #3 Diabetes Mellitus [...] mid August 2019 after he returns from [place], [place]. Should any issues, concerns, or questions arise in the interim, the patient should notify us. 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 PCP - General 11/14/18 11/13/21 [address] [place] [address] documented as of this encounter
--- OUTSIDE RECORDS SUMMARY | 2022-02-19 14:05 | XMS_ITS | Encounter Summary ---
:1940 Author Organization [facility] Address [address] [place] [address] Care Team Providers Name Role Phone Kristal Galeana M.D. Primary Care Provider Reason for Visit Reason Onset Date Comments question 03/04/2018 Encounter Details Date Type Department Care Team Description 03/04/2018 Clinical Communication Department of Maikol Loredo question Medicine, [place] [facility]j M.D. [place], in [address] [place] [address] 411 [facility] [address] [place] [address] [phone] Social History Tobacco Use Types Packs/Day Years [...] How often do you attend taoism or zoroastrianism services? Patien t refused 10/29/2020 [...] on filedocumented in this encounter Care Teams Clerk Checker Relationship Specialty Start Date End Date Kristal Galeana M.D. PCP - General Family Medicine 01/19/18 11/13/18 documented as of this encounter
--- OUTSIDE RECORDS SUMMARY | 2022-02-19 14:05 | XMS_ITS | Encounter Summary ---
:1940 Author Organization [facility] Address [address] [place] [address] Care Team Providers Name Role Phone Kristal Galeana M.D. Primary Care Provider Encounter Details Date Type Department Care Team Description 01/19/2018 Clinical Communication Department of Letitia Ramon, Medicine, [facility] Alonso [address] [place] [address] [place] [address] [place] [address] (Work) [phone] Social History Tobacco Use Types Packs/Day Years [...] How often do you attend pentecostal or cheondoism services? Patien t refused 10/29/2020 [...] CDT Caller:Vinayak Vazquez Relationship to Patient:self Callback Number:[phone] Pharmacy: Request/Details:patient has diabetic lab scheduled on [...] filedocumented in this encounter Care Teams Senior Supply Chain Analyst Relationship Specialty Start Date End Date Kristal Galeana M.D. PCP - General Family Medicine 01/19/18 11/13/18 documented as of this encounter
--- OUTSIDE RECORDS SUMMARY | 2022-02-19 14:05 | XMS_ITS | Encounter Summary ---
:1940 Author Organization [facility] Address [address] [place] [address] Care Team Providers Name Role Phone Kristal Galeana M.D. Primary Care Provider Encounter Details Date Type Department Care Team Description 02/28/2018 Hospital Encounter Department of Reuben Cavazos Essential Primary; Laboratory Medicine P[facility] Diabetes Mellitus Type 2 (HCC); in [place], [place] General Medical Examination Adult [address] [place] [address] Social History Tobacco Use Types [...] How often do you attend sikh or jehovah's witness services? Patien t refused 10/29/2020 Do you belong to any clubs or organizations such as Nabil borrero sikh groups, unions, fraternal or athletic [...] athologist Signature Prostate-Speci 0.98 <=6.5 02/28/2018 [facility] fic Ag ng/mL 2:29 PM CDT LABORATORIES - [facility] Comment: ----ADDITIONAL INFORMATION---- The testing method is [...] e Number [facility] - [address] [place], [place] [address] [facility] Sodium (02/28/2018 7:58 AM CDT) athologist Signature Sodium, P 136 135 - 145 02/28/2018 [facility] mmol/L 9:11 AM [facility] Specimen Anatomical Collection Method Collection Time Receive d Time (Source) Location / / Volume Laterality Blood (Blood, 02/28/2018 7:58 AM 02/29/20 7:58 Venous) CDT AM CDT Kristal Galeana M.D. LAB BLOOD ADD-ON Performing Organization Address City/[facility] Code Phon e Number [facility] [address] [place] [address] Creatinine with Estimated GFR (02/28/2018 7:58 AM CDT) athologist Signature Creatinine 1.09 0.74 - 02/28/2018 [facility] 1.35 mg/dL 9:11 AM [facility] eGFR-Black/Afri 75 >=60 02/28/2018 [facility] can Portuguese mL/min/BSA 9:11 AM [facility] Comment: ----ADDITIONAL INFORMATION---- Estimated GFR calculated using the 2009 CKD_EPI creatinine equation. eGFR Non-Black/ 65 >=60 mL/min/BSA 02/28/2018 9:11 AM [facility] Comment: ----ADDITIONAL INFORMATION---- Estimated GFR calculated using the 2009 CKD_EPI creatinine equation. Specimen Anatomical Collection Method Collection Time Receive d Time (Source) Location / / Volume Laterality Blood (Blood, 02/28/2018 7:58 AM 02/29/20 18 7:58 Venous) CDT AM CDT Kristal Galeana M.D. LAB BLOOD ADD-ON Performing Organization Address City/[facility]/ZIP Code Phon e Number [facility] [address] [place] [address] (ABNORMAL) Hemoglobin A1c (02/28/2018 7:58 AM CDT) [facility] Method Time Signature Hemoglobin A1c, 6.7 (H) 4.0 - 5.6 02/28/2018 [facility] B % 1:36 PM CDT [facility]ATOR[facility] - [facility] Comment: Hemoglobin A1c values greater than or [...] e Number [facility]IES - [address] [place], [place] [address] [facility] Potassium (02/28/2018 7:58 AM CDT) P athologist Signature Potassium, P 4.3 3.6 - 5.2 02/28/2018 [facility] mmol/L 9:[address] [facility] Specimen Anatomical Collection Method Collection Time Receive d Time (Source) Location / / Volume Laterality Blood (Blood, 02/28/2018 7:58 AM 02/29/20 18 7:58 Venous) CDT AM CDT Kristal Galeana M.D. LAB BLOOD ADD-ON Performing Organization Address City/State/ZIP Code Phon e Number [facility] [address] [place] [address] documented in this encounter Visit Diagnoses Diagnosis Hypertension Essential Primary Diabetes Mellitus Type 2 (HCC) General Medical Examination Adult documented in this encounter Care Teams Teaseler Relationship Specialty Start Date End Date Kristal Galeana M.D. PCP - General Family Medicine 01/19/18 11/13/18 documented as of this encounter
--- OUTSIDE RECORDS SUMMARY | 2022-02-19 14:05 | XMS_ITS | Encounter Summary ---
:1940 Author Organization [facility] Address [address] [place] [address] Care Team Providers Name Role Phone Kristal Galeana M.D. Primary Care Provider Encounter Details Date Type Department Care Team Description 09/13/2018 Clinical Communication Department of Kushal Casas, Medicine, [facility], al [address] [place] [address] [address] [facility] [address] [place] [address] Social History Tobacco Use Types Packs/Day Years [...] How often do you attend amish or baptism services? Patien t refused 10/29/2020 [...] How to Create a patientOnline Service Account [employer] [phone] which has the helpline # for patients [...] on filedocumented in this encounter Care Teams Tab Machine Operator Relationship Specialty Start Date End Date Kervin, Kristal M, M.D. PCP - General Family Medicine 01/19/18 11/13/18 documented as of this encounter
--- OUTSIDE RECORDS SUMMARY | 2022-02-19 14:05 | XMS_ITS | Encounter Summary ---
:1940 Author Organization [facility] Address [address] [place] [address] Care Team Providers Name Role Phone Lexus Fowler M.D., M.P.H. Primary Care Provider [phone] Reason for Referral Outpatient (Routine) - Closed Specialty Diagnoses / Procedures Referred By Contact Refer red To Contact Orthopedic Surgery Roslyn Veliz APRN, [place] C.N.P. Referral ID Status Reason Start Date Expiration Date Visits Requ ested Visits Authorized [id number] Closed 12/12/2018 12/12/2019 1 1 Reason for Visit Outpatient (Routine) - Closed Specialty Diagnoses / Procedures Referred By Contact Refer red To Contact Orthopedic Surgery Roslyn Veliz APRN, [place] C.N.P. Referral ID Status Reason Start Date Expiration Date Visits Requ ested Visits Authorized [id number] Closed 10/03/2018 10/03/2019 1 1 Encounter Details Date Type Department Care Team Description 12/12/2018 Procedure visit Department of Roslyn Veliz Dystrophi c Toenail; Orthopedic Surgery in [place], C.N. P. 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 The patient wears New Balance shoes with molded inserts. He states that he gets these insert from a place out town and that Medicare covers the cost. He has had custom inserts from [employer] in the past. His past medical history [...] Skin temperature changes: Bilateral feet are warm [place]/calluses: Hyperkeratotic buildup over the right hallux plantar [...] 2 With Diabetic N europathy (HCC) Callus [place] Foot documented in this encounter Care Teams Sludge Control Attendant Relationship Specialty Start Date End Date Lexus Fowler M.D., M.P.H. PCP - General 11/14/18 11/13/21 [address] [place] [address] documented as of this encounter
--- OUTSIDE RECORDS SUMMARY | 2022-02-19 14:05 | XMS_ITS | Encounter Summary ---
:1939 Author Organization [facility] Address [address] [place] [address] Care Team Providers Name Role Phone Lexus Fowler M.D., M.P.H. Primary Care Provider [phone] Reason for Visit Reason Comments Diabetes Outpatient (Routine) - Closed Specialty Diagnoses / Procedures Referred By Contact Refer red To Contact Family Medicine Kristal Galeana M.D. [address] [place] [address] Referral ID Status Reason Start Date Expiration Date Visits Requ ested Visits Authorized [id number] Closed 09/22/2018 09/22/2019 1 1 Encounter Details Date Type Department Care Team Description 03/10/2019 Office Visit Department of Family Lexus Fowler, Diabetes 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, M.P.H. Hypertension Essential Primary; Family Clinic [address] [place] [address] Hyperlipidemia; brandon Hernandez [facility] [address] [address] [facility] [place] [address] Social History Tobacco Use Types [...] How often do you attend sikhism or orthodoxy services? Patien t refused 10/29/2020 [...] at that time. He is leaving for [facility] for the winter tomorrow, and would [...] No guarding or rebound tenderness. Nohepatosplenomegaly. Skin: [place] and well perfused ASSESSMENT / PLAN #1 [...] 6 months time when he returns from [place]. We will work on ensuring that his [...] 6 months time when he returns from [place]. We will work on ensuring that his blood pressure is within goal range at that time. documented in this encounter Plan of Treatment Not on filedocumented as of this encounter Results (ABNORMAL) Creatinine with Estimated GFR (03/10/2019 10:44 AM CDT) P athologist Signature Creatinine 1.25 0.74 - 03/10/2019 [facility] 1.35 mg/dL 11:18 AM CDT eGFR-Black/Afric 63 >=60 03/10/2019 [facility] an [place]an mL/min/BSA 11:18 AM CDT Comment: ----ADDITIONAL INFORMATION---- Estimated GFR calculated using the 2009 CKD_EPI creatinine equation. eGFR Non-Black/ 54 (L) >=60 mL/min/BSA 03/10/2019 11:18 AM CDT [facility] Comment: ----ADDITIONAL INFORMATION---- Estimated GFR calculated using the 2009 CKD_EPI creatinine equation. Specimen Anatomical Collection Method Collection Time Receive d Time (Source) Location / / Volume Laterality Blood (Blood, 03/10/2019 10:44 03/10/2019 Venous) AM CDT 10:44 AM CDT Lexus Fowler M.D., M.P.H. LAB BLOOD ADD-ON Performing Organization Address City/[facility]/ZIP Code Phon e Number [address] [address] [place] [phone] [place] [address] Sodium (03/10/2019 10:44 AM CDT) P athologist Signature Sodium, P 139 135 - 145 03/10/2019 [facility] mmol/L 11:18 AM CDT Specimen Anatomical Collection Method Collection Time Receive d Time (Source) Location / / Volume Laterality Blood (Blood, 03/10/2019 10:44 03/10/2019 Venous) AM CDT 10:44 AM CDT Lexus Fowler M.D., M.P.H. LAB BLOOD ADD-ON Performing Organization Address City/[facility]/ZIP Code Phon e Number [address] [address] [place] [address] [place] [address] Potassium (03/10/2019 10:44 AM CDT) P athologist Signature Potassium, P 4.8 3.6 - 5.2 03/10/2019 [facility] mmol/L 11:18 AM CDT Specimen Anatomical Collection Method Collection Time Receive d Time (Source) Location / / Volume Laterality Blood (Blood, 03/10/2019 10:44 03/10/2019 Venous) AM CDT 10:44 AM CDT Lexus Fowler M.D., M.P.H. 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 PCP - General 11/14/18 11/13/21 [address] [place] [address] documented as of this encounter
--- OUTSIDE RECORDS SUMMARY | 2022-02-19 14:05 | XMS_ITS | Encounter Summary ---
:[address] [facility] Address [address] [place] [address] Care Team Providers Name Role Phone Lexus Fowler M.D., M.P.H. Primary Care Provider [phone] Encounter Details Date Type Department Care Team Description 03/08/2019 Hospital Encounter Department of Kristal Galeana Diabet es Mellitus Laboratory Medicine Alonso Type 2 (HCC) in [address] [address] [phone] Social History Tobacco Use Types Packs/Day Years [...] How often do you attend shinto or jehovah's witness services? Patien t refused 10/29/2020 Do you belong to any clubs or organizations such as Not aske d shinto groups, unions, fraternal or athletic groups, [...] [employer] and performed on the Infoflow or Zhang system . Values obtained with [...] M.D. LAB BLOOD ADD-ON Performing Organization Address City/[facility] Phon e Number [facility] - [address] [place], [place] [address] [facility] [place] [address] Laboratories-[address] (ABNORMAL) Hemoglobin A1c (03/08/2019 8:40 AM [...] M.D. LAB BLOOD ADD-ON Performing Organization Address City/[facility] Phon e Number [facility] - 200 [place], [place] [address] [facility] [place] [address] documented in this encounter Visit Diagnoses Diagnosis Diabetes Mellitus Type 2 (HCC) documented in this encounter Care Teams Cake Decorator Relationship Specialty Start Date End Date Lexus Fowler M.D., M.P.H. PCP - General 11/14/18 11/13/21 [address] [place] [address] documented as of this encounter
--- OUTSIDE RECORDS SUMMARY | 2022-02-19 14:05 | XMS_ITS | Encounter Summary ---
:1940 Author Organization [facility] Address [address] [place] [address] Care Team Providers Name Role Phone Kristal Galeana M.D. Primary Care Provider Reason for Visit Reason Comments Med Refill Encounter Details Date Type Department Care Team Description 02/13/2018 Refill Department of Family Medicine, Kristal Keith M.D. Med Refill [address] [place] [address] [place] [address] [place] [address] [phone] Social History Tobacco Use Types Packs/Day Years [...] How often do you attend zoroastrianism or confucianism services? Patien t refused 10/29/2020 [...] on filedocumented in this encounter Care Teams Tube Room Supervisor Relationship Specialty Start Date End Date Kristal Galeana M.D. PCP - General Family Medicine 01/19/18 11/13/18 documented as of this encounter
--- OUTSIDE RECORDS SUMMARY | 2022-02-19 14:05 | XMS_ITS | Encounter Summary ---
:1940 Author Organization [facility] Address [address] [place] [address] Care Team Providers Name Role Phone Kristal Galeana M.D. Primary Care Provider Reason for Referral Outpatient (Routine) - Closed Specialty Diagnoses / Procedures Referred By Contact Refer red To Contact Orthopedic Surgery Roslyn Veliz APRN, [place] C.N.P. Referral ID Status Reason Start Date Expiration Date Visits Requ ested Visits Authorized [id number] Closed 09/05/2018 09/05/2019 1 1 Reason for Visit Outpatient (Routine) - Closed Specialty Diagnoses / Procedures Referred By Contact Refer red To Contact Orthopedic Surgery Roslyn Veliz APRN, [place] C.N.P. Referral ID Status Reason Start Date Expiration Date Visits Requ ested Visits Authorized [id number] Closed 03/10/2018 03/10/2019 1 1 Encounter Details Date Type Department Care Team Description 09/05/2018 Procedure visit Department of Roslyn Veliz Callus Co rn Foot; Orthopedic Surgery in [place], C.N. P. Diabetes Mellitus Type 2 With Diabetic N europathy ([facility]) [place], [place] [phone] [address] [facility] (Work) [place], [place] [phone] (Fax) [phone] Social History Tobacco Use Types Packs/Day Years [...] How often do you attend rastafari or orthodoxy services? Patien t refused 10/29/2020 Do you belong to any clubs or organizations such as Nabil borrero rastafari groups, [employer], fraternal or athletic groups, or school groups? [...] PRESENT ILLNESS Mr. Vazquez presents to the [facility] Pod[facility] with calluses on bilateral feet plantar surface. He states that he has his toenails taking care of in a salon and that they also work on his calluses. The patient wears New Balance shoes with qbaw-uny-tqldcny inserts. He has had custom inserts from[employer], butstates that these were more expensive and in seem to work any better. He and his return from [place] a few weeks ago. 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 PCP - General Family Medicine 01/19/18 11/13/18 documented as of this encounter
--- OUTSIDE RECORDS SUMMARY | 2022-02-19 14:05 | XMS_ITS | Encounter Summary ---
:1940 Author Organization [facility] Address [address] [place] [address] Care Team Providers Name Role Phone Lexus Fowler M.D., M.P.H. Primary Care Provider [phone] Encounter Details Date Type Department Care Team Description 03/08/2019 Hospital Encounter Department of Kristal Galeana Diabet es Mellitus Laboratory Medicine [place] Type 2 (HCC) in [address] [address] [phone] Social History Tobacco Use Types Packs/Day Years [...] How often do you attend uatsdin or latter-day services? Patien t refused 10/29/2020 Do you belong to any clubs or organizations such as Not aske d uatsdin groups, unions, fraternal or athletic groups, [...] characteri stics were determined by [facility] in a manner co nsistent with [...] e Number [facility] - [address] [place], [place] [address] [facility] [place] [address] [facility] [address] documented in this encounter Visit Diagnoses Diagnosis Diabetes Mellitus Type 2 (HCC) documented in this encounter Care Teams General Assembler Installer Relationship Specialty Start Date End Date Lexus Fowler M.D., M.P.H. PCP - General 11/14/18 11/13/21 [address] [place] [address] documented as of this encounter
--- OUTSIDE RECORDS SUMMARY | 2022-02-19 14:05 | XMS_ITS | Encounter Summary ---
:1940 Author Organization [facility] Address [address] [place] [address] Care Team Providers Name Role Phone Kristal Galeana M.D. Primary Care Provider Reason for Referral Outpatient (Routine) - Closed Specialty Diagnoses / Procedures Referred By Contact Refer red To Contact Family Medicine Diagnoses Diabetes Mellitus Type 2 ([facility] [address] [place] [phone] Referral ID Status Reason Start Date Expiration Date Visits Requ ested Visits Authorized [id number] Closed 03/04/2018 03/04/2019 1 1 Reason for Visit Reason Comments Diabetes Appointment Request (Routine) - Closed Specialty Diagnoses / Procedures Referred By Contact Refer red To Contact Family Medicine Referral ID Status Reason Start Date Expiration Date Visits Requ ested Visits Authorized [id number] Closed 01/19/2018 01/19/2019 1 1 Encounter Details Date Type Department Care Team Description 03/04/2018 Office Visit Department of [facility] Kristal Galeana M.D. [address] [place] [address] 5 [place] [address] Diabetes Mellitus Type 2 (HCC) (Primary Dx); Medicine, [facility] Med Alvarez M.D. 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 Patien t refused 10/29/2020 [...] is planning for an eye exam in [place] in the coming weeks. He is up-to-date [...] Diabetes Mellitus Type 2 With Diabetic Neuropathy ([facility]) #3 Hyperlipidemia - Lipid Panel; Future; Expected [...] Order [facility] Outpatient Referral Routine Diabetes Mellitus Expected: office visit Type 2 (HCC) 09/02/2018 (clinic) - Other (Approximat e), provider Expires: 03/04/2021 documented as of this encounter Results Creatinine with Estimated GFR (09/02/2018 8:15 AM CDT) P athologist Signature Creatinine 1.06 0.74 - 09/02/2018 [facility] 1.35 mg/dL 9:02 AM CDT [facility] eGFR-Black/Afri 77 >=60 09/02/2018 [facility] can Armenian mL/min/BSA 9:02 AM [facility] Comment: ----ADDITIONAL INFORMATION---- Estimated GFR calculated using the 2009 CKD_EPI creatinine equation. eGFR Non-Black/ 66 >=60 mL/min/BSA 09/02/2018 9:02 AM [facility] Armenian [facility] Comment: ----ADDITIONAL INFORMATION---- Estimated GFR calculated using the 2009 CKD_EPI creatinine equation. Specimen Anatomical Collection Method Collection Time Receive d Time (Source) Location / / Volume Laterality Blood (Blood, 09/02/2018 8:15 AM 09/03/19 8:15 Venous) CDT AM CDT Med Alvarez M.D. LAB BLOOD ADD-ON Performing Organization Address City/[facility] Phon e Number [address] [address] Sodium (09/02/2018 8:15 AM CDT) P athologist Signature Sodium, P 136 135 - 145 09/02/2018 [facility] mmol/L 9:02 AM [facility] Specimen Anatomical Collection Method Collection Time Receive d Time (Source) Location / / Volume Laterality Blood (Blood, 09/02/2018 8:15 AM 09/03/19 8:15 Venous) CDT AM CDT Med Alvarez M.D. LAB BLOOD ADD-ON Performing Organization Address City/[facility]/ZIP Code Phon e Number [address] [address] Potassium (09/02/2018 8:15 AM CDT) P athologist Signature Potassium, P 4.4 3.6 - 5.2 09/02/2018 [facility] mmol/L 9:02 AM [facility] Specimen Anatomical Collection Method Collection Time Receive d Time (Source) Location / / Volume Laterality Blood (Blood, 09/02/2018 8:15 AM 09/03/19 8:15 Venous) CDT AM CDT Med Alvarez M.D. LAB BLOOD ADD-ON Performing Organization Address City/State/[facility] Code Phon e Number [facility] [address] [place] [address] Lipid Panel (09/02/2018 8:15 AM CDT) P athologist Signature Cholesterol, 112 mg/dL 09/02/2018 [facility] Total 1:24 PM CDT [facility] Comment: ----REFERENCE VALUE---- Desirable: < 200 Borderline high: 200 - 239 High: > or = 240 Triglycerides 95 mg/dL 09/02/2018 1:24 PM CDT [facility] Comment: ----REFERENCE VALUE---- Normal: <150 Borderline high: 150-199 High: 200-499 Very high: > or =500 Cholesterol, HDL, S 49 >=40 mg/dL 09/02/2018 1:24 PM CDT [facility] Calculated LDL 44 mg/dL 09/02/2018 1:24 PM CDT [place] [facility] Comment: ----REFERENCE VALUE---- Desirable: <100 Above Desirable: 100-129 Borderline high: 130-159 High: 160-189 Very high: > or =190 Cholesterol, Non-HDL, 63 mg/dL 09/02/2018 1:24 PM CDT [facility] Comment: ----REFERENCE VALUE---- Desirable: <130 Above Desirable: 130-159 Borderline high: 160-189 High: 190-219 Very high: > or =220 Specimen Anatomical Collection Method Collection Time Receive d Time (Source) Location / / Volume Laterality Blood (Blood, 09/02/2018 8:15 AM 09/03/19 19 Venous) CDT 12:41 PM CDT Med Alvarez M.D. LAB BLOOD ADD-ON Performing Organization Address City/State/ZIP Code Phon e Number [facility] - 200 [place], [place] [address] [facility] (ABNORMAL) Hemoglobin A1c (09/02/2018 8:15 AM CDT) Patholo gist Method Time Signature Hemoglobin A1c, 6.7 (H) 4.0 - 5.6 09/02/2018 [facility] B % 3:47 PM CDT [facility] Comment: Hemoglobin A1c values greater than or [...] City/State/ZIP Code Phon e Number [facility] - [address] [place] [address] [facility] documented in this encounter Visit Diagnoses Diagnosis Diabetes Mellitus Type 2 (HCC) - Primary 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 PCP - General Family Medicine 01/19/18 11/13/18 documented as of this encounter
--- OUTSIDE RECORDS SUMMARY | 2022-02-19 14:05 | XMS_ITS | Encounter Summary ---
:1940 Author Organization [facility] Address [address] [place] [address] Care Team Providers Name Role Phone Lexus Fowler M.D., M.P.H. Primary Care Provider Reason for Visit Reason Comments Med Refill Encounter Details Date Type Department Care Team Description 01/18/2019 Refill Department of [facility] Kasi Alvarez M.D. Med Refill Medicine, [facility] [address] [place] [address] [place] [address] [address] [facility] [place] [address] [phone] Social History Tobacco Use Types Packs/Day Years [...] How often do you attend shinto or samaritan services? Patien t refused 10/29/2020 [...] on filedocumented in this encounter Care Teams Bee Keeper Relationship Specialty Start Date End Date Lexus Fowler M.D., M.P.H. PCP - General 11/14/18 11/13/21 [address] [place] [address] documented as of this encounter
--- OUTSIDE RECORDS SUMMARY | 2022-02-19 14:05 | XMS_ITS | Encounter Summary ---
:1939 Author Organization [facility] Address [address] [place] [address] Care Team Providers Name Role Phone Kristal Galeana M.D. Primary Care Provider Reason for Visit Reason Comments Diabetic Eye Exam Appointment Request (Routine) - Closed Specialty Diagnoses / Procedures Referred By Contact Refer red To Contact Ophthalmology Referral ID Status Reason Start Date Expiration Date Visits Requ ested Visits Authorized [id number] Closed 07/05/2018 07/05/2019 1 1 Encounter Details Date Type Department Care Team Description 09/13/2018 Comprehensive Visit Department of Aranza Michaels [facility] Ophthalmology in [place], [facility] Scl erosis [place], [place] O.D. Bilateral (Primary [address] [place] [address] [facility] Dx) [place] [address] [phone] Social History Tobacco Use Types Packs/Day Years [...] How often do you attend jewish or lutheran services? Elizabeth calvillo refused 10/29/2020 Do you [...] Primary documented in this encounter Care Teams Hanging Flags Decorator Relationship Specialty Start Date End Date Kristal Galeana M.D. PCP - General Family Medicine 01/19/18 11/13/18 documented as of this encounter
--- OUTSIDE RECORDS SUMMARY | 2022-02-19 14:05 | XMS_ITS | Encounter Summary ---
:1939 Author Organization [facility] Address [address] [place] [address] Care Team Providers Name Role Phone Kristal Galeana M.D. Primary Care Provider Reason for Referral Outpatient (Routine) - Closed Specialty Diagnoses / Procedures Referred By Contact Refer red To Contact Orthopedic Surgery Roslyn Veliz APRN, [place] C.N.P. Referral ID Status Reason Start Date Expiration Date Visits Requ ested Visits Authorized [id number] Closed 03/10/2018 03/10/2019 1 1 Reason for Visit Outpatient (Routine) - Closed Specialty Diagnoses / Procedures Referred By Contact Refer red To Contact Orthopedic Surgery Roslyn Veliz APRN, [place] C.N.P. Referral ID Status Reason Start Date Expiration Date Visits Requ ested Visits Authorized [id number] Closed 01/13/2018 01/13/2019 1 1 Encounter Details Date Type Department Care Team Description 03/10/2018 Procedure visit Department of Roslyn Veliz Callus Co rn Foot; Orthopedic Surgery in [place], C.N. P. 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 Patien t refused 10/29/2020 [...] ILLNESS Mr. 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 PCP - General Family Medicine 01/19/18 11/13/18 documented as of this encounter
--- OUTSIDE RECORDS SUMMARY | 2022-02-19 14:05 | XMS_ITS | Encounter Summary ---
:1939 Author Organization [facility] Address [address] [place] [address] Care Team Providers Name Role Phone Kristal Galeana M.D. Primary Care Provider Encounter Details Date Type Department Care Team Description 01/24/2018 Orders Only Department of Family Kristal Galeana M.D. Medicine, [address] [place] [address] [address] [facility] [place] [address] [phone] Social History Tobacco Use Types Packs/Day Years [...] How often do you attend tenriism or anabaptist services? Patien t refused 10/29/2020 [...] on filedocumented in this encounter Care Teams Production Assistant Relationship Specialty Start Date End Date Kristal Galeana M.D. PCP - General Family Medicine 01/19/18 11/13/18 documented as of this encounter
--- OUTSIDE RECORDS SUMMARY | 2022-02-19 14:05 | XMS_ITS | Encounter Summary ---
:[address] [facility] Address [address] [place] [address] Care Team Providers Name Role Phone Kristal Galeana M.D. Primary Care Provider Reason for Referral Outpatient (Routine) - Closed Specialty Diagnoses / Procedures Referred By Contact Refer red To Contact Orthopedic Surgery Roslyn Veliz APRN, [place] C.N.P. Referral ID Status Reason Start Date Expiration Date Visits Requ ested Visits Authorized [id number] Closed 10/03/2018 10/03/2019 1 1 Reason for Visit Outpatient (Routine) - Closed Specialty Diagnoses / Procedures Referred By Contact Refer red To Contact Orthopedic Surgery Roslyn Veliz APRN, [place] C.N.P. Referral ID Status Reason Start Date Expiration Date Visits Requ ested Visits Authorized [id number] Closed 09/05/2018 09/05/2019 1 1 Encounter Details Date Type Department Care Team Description 10/03/2018 Procedure visit Department of Roslyn Veliz, Hypertrop hied Nail; Orthopedic Surgery [place], C.N.P. 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 Patien t refused 10/29/2020 Do you belong to any clubs or organizations such as Nabil palomares [employer] cheondoism groups, unions, fraternal or athletic groups, [...] PRESENT ILLNESS Mr. Vazquez presents to the [facility] Pod[facility]ry [facility] with calluses on bilateral feet plantar surface. He states that he has his toenails taking care of in a salon and that they also work on his calluses. The patient wears New Balance shoes with itqr-nlk-cilnixj inserts. He has had custom inserts from [employer], but states that these were more expensive and seem to work better. He and his return from [place] a few weeks ago. He states he [...] Skin temperature changes: Bilateral feet are warm [place]/calluses: Hyperkeratotic buildup over the right 5th and [...] 2 With Diabetic N europathy (HCC) Callus [place] Foot documented in this encounter Care Teams Reimbursement Auditor Relationship Specialty Start Date End Date Kristal Galeana M.D. PCP - General Family Medicine 01/19/18 11/13/18 documented as of this encounter
--- OUTSIDE RECORDS SUMMARY | 2022-02-19 14:05 | XMS_ITS | Encounter Summary ---
:1939 Author Organization [facility] Address [address] [place] [address] Care Team Providers Name Role Phone Kristal Galeana M.D. Primary Care Provider Reason for Visit Reason Comments Med Refill Encounter Details Date Type Department Care Team Description 01/23/2018 Refill Department of Family Medicine, Kristal Keith M.D. Med Refill [address] [place] [address] [place] [address] [place] [address] [phone] Social History Tobacco Use Types Packs/Day Years [...] How often do you attend mandaeism or methodist services? Patien t refused 10/29/2020 [...] on filedocumented in this encounter Care Teams Sap Sd Analyst Relationship Specialty Start Date End Date Kristal Galeana M.D. PCP - General Family Medicine 01/19/18 11/13/18 documented as of this encounter
--- OUTSIDE RECORDS SUMMARY | 2022-02-19 14:05 | XMS_ITS | Encounter Summary ---
:1939 Author Organization [facility] Address [address] [place] [address] Care Team Providers Name Role Phone Kristal Galeana M.D. Primary Care Provider Encounter Details Date Type Department Care Team Description 02/28/2018 Hospital Encounter Department of Kristal Galeana Diabjacqueline es Mellitus Laboratory Medicine [place] Type 2 (HCC) in [address] [address] [phone] Social History Tobacco Use Types Packs/Day Years [...] How often do you attend religion or pentecostalism services? Patien t refused 10/29/2020 [...] CDT) athologist Signature Microalbumin 9.3 mg/L 02/28/2018 [facility] 2:38 PM CDT [facility] Comment: ----ADDITIONAL INFORMATION---- This test has been modified from the valentin hurtado's instructions. Its performance characteri stics were determined by [facility] in a manner co nsistent with CLIA requirements. This test has not bee n cleared or approved by the U.S. Food and Drug Admin istration. Creatinine 125 mg/dL 02/28/2018 2:38 PM CDT [facility] Albumin/Creatinine 7 <17 mg/g 02/28/2018 2:38 PM CD T [facility] Specimen Anatomical Collection Method Collection Time Receive d Time (Source) Location / / Volume Laterality Urine (Urine, 02/28/2018 8:40 AM 02/29/20 18 1:31 Clean Catch) CDT PM CDT Kristal Galeana M.D. LAB URINE ORDERABLES Performing Organization Address City/State/ZIP Code Phon e Number [facility] - [address] documented in this encounter Visit Diagnoses Diagnosis Diabetes Mellitus Type 2 (HCC) documented in this encounter Care Teams Mental Health Social Worker Relationship Specialty Start Date End Date Kristal Galeana M.D. PCP - General Family Medicine 01/19/18 11/13/18 documented as of this encounter
--- OUTSIDE RECORDS SUMMARY | 2022-02-19 14:05 | XMS_ITS | Encounter Summary ---
:1939 Author Organization [facility] Address [address] [place] [address] Care Team Providers Name Role Phone Lexus Fowler M.D., M.P.H. Primary Care Provider [phone] Encounter Details Date Type Department Care Team Description 03/10/2019 Hospital Encounter Department of Lexus Fowler rtension Laboratory Medicine Alonso Lassiter, M.P .H. Essential Primary in [address] [facility] [address] [place], [place] [phone] [address] (Work) [phone] Social History Tobacco Use Types Packs/Day Years [...] How often do you attend anglican or jewish services? Patien t refused 10/29/2020 [...] day. ([facility]) [employer] ULTRA BLUE TEST daily. for 3 01/07/2018 [...] CDT eGFR-Black/Afric 63 >=60 03/10/2019 [facility] an [place] mL/min/BSA 11:18 AM CDT Comment: ----ADDITIONAL INFORMATION---- Estimated GFR calculated using the 2009 CKD_EPI creatinine equation. eGFR Non-Black/ 54 (L) >=60 mL/min/BSA 03/10/2019 11:18 AM CDT [facility] [place] Comment: ----ADDITIONAL INFORMATION---- Estimated GFR calculated using the 2009 CKD_EPI creatinine equation. Specimen Anatomical Collection Method Collection Time Receive d Time (Source) Location / / Volume Laterality Blood (Blood, 03/10/2019 10:44 03/10/2019 Venous) AM CDT 10:44 AM CDT Lexus Fowler M.D., M.P.H. LAB BLOOD ADD-ON Performing Organization Address City/[facility]/ZIP Code Phon e Number [facility] [address] [place] [address] [place] [address] 411 [facility] Sodium (03/10/2019 10:44 AM CDT) P athologist Signature Sodium, P 139 135 - 145 03/10/2019 [facility] mmol/L 11:18 AM CDT Specimen Anatomical Collection Method Collection Time Receive d Time (Source) Location / / Volume Laterality Blood (Blood, 03/10/2019 10:44 03/10/2019 Venous) AM CDT 10:44 AM CDT Lexus Fowler M.D., M.P.H. LAB BLOOD ADD-ON Performing Organization Address City/[facility]/ZIP Code Phon e Number [facility] [address] [place] [address] [place] [phone] [place] [address] Potassium (03/10/2019 10:44 AM CDT) P athologist Signature Potassium, P 4.8 3.6 - 5.2 03/10/2019 [facility] mmol/L 11:18 AM CDT Specimen Anatomical Collection Method Collection Time Receive d Time (Source) Location / / Volume Laterality Blood (Blood, 03/10/2019 10:44 03/10/2019 Venous) AM CDT 10:44 AM CDT Lexus Fowler M.D., M.P.H. LAB BLOOD ADD-ON Performing Organization Address City/[facility]/ZIP Code Phon e Number [facility] [address] [place] [address] [place] [address] 411 [facility] documented in this encounter Visit Diagnoses Diagnosis Hypertension Essential Primary documented in this encounter Care Teams Sheet Metal Layout Worker Relationship Specialty Start Date End Date Lexus Fowler M.D., M.P.H. PCP - General 11/14/18 11/13/21 [address] [place] [phone] documented as of this encounter
--- OUTSIDE RECORDS SUMMARY | 2022-02-19 14:06 | XMS_ITS | Encounter Summary ---
:1940 Author Organization [facility] Address [address] [place] [address] Care Team Providers Name Role Phone Bryce Monahan D.O. Primary Care Provider Reason for Referral Outpatient (Routine) - Closed Specialty Diagnoses / Procedures Referred By Contact Refer red To Contact Orthopedic Surgery Roslyn Veliz APRN, [place] C.N.P. Referral ID Status Reason Start Date Expiration Date Visits Requ ested Visits Authorized [id number] Closed 01/13/2018 01/13/2019 1 1 Reason for Visit Outpatient (Routine) - Closed Specialty Diagnoses / Procedures Referred By Contact Refer red To Contact Orthopedic Surgery Roslyn Veliz APRN, [place] C.N.P. Referral ID Status Reason Start Date Expiration Date Visits Requ ested Visits Authorized [id number] Closed 10/13/2017 10/13/2018 1 1 Encounter Details Date Type Department Care Team Description 01/13/2018 Procedure visit Department of Roslyn Veliz Callus Co rn Foot; Orthopedic Surgery in [place], C.N. P. 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 Patien t refused 10/29/2020 [...] PRESENT ILLNESS Mr. 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 PCP - General Family Medicine 11/13/17 01/18/18 [address] [place] [address] documented as of this encounter
--- OUTSIDE RECORDS SUMMARY | 2022-02-19 14:06 | XMS_ITS | Encounter Summary ---
:1940 Author Organization [facility] Address [address] [place] [address] Care Team Providers Name Role Phone Elsewhere, Pcp Primary Care Provider Unavailable Encounter Details Date Type Department Care Team Description 11/11/2015 Historical Ophthalmology RST OPH Dharmesh Lopez O.D. [address] [place], [place] [address] (Wo rk) Social History [...] How often do you attend taoist or anabaptism services? Patien t refused 10/29/2020 Do you belong to any clubs or organizations such as Not jelani borrero taoist groups, unions, fraternal or athletic [...] visually significant. CDM Reports - EYEGEN Id: [id number] Status: Fnl documented in this encounter Plan of Treatment Not on filedocumented as of this encounter Visit Diagnoses Not on filedocumented in this encounter Care Teams Sanitary Napkin Machine Tender Relationship Specialty Start Date End Date Elsewhere, Pcp PCP - General Internal Medicine 02/04/22 documented as of this encounter
--- OUTSIDE RECORDS SUMMARY | 2022-02-19 14:06 | XMS_ITS | Encounter Summary ---
:1940 Author Organization [facility] Address [address] [place] [address] Care Team Providers Name Role Phone Unavailable [...] How often do you attend synagogue or hoahaoism services? Patien t refused 10/29/2020 [...]
--- OUTSIDE RECORDS SUMMARY | 2022-02-19 14:06 | XMS_ITS | Encounter Summary ---
:1940 Author Organization [facility] Address [address] [place] [address] Care Team Providers Name Role Phone Elsewhere, Pcp Primary Care Provider Unavailable Encounter Details Date Type Department Care Team Description 09/21/2014 Historical Ophthalmology RST OPH Kasiaing Genet Cordero O.D. [address] [place], [place] [phone] (Wo rk) Social History [...] How often do you attend hinduism or mu-ism services? Patien t refused 10/29/2020 [...] with results. [facility] sent to [facility] and they will call you for [...] visually significant. CDM Reports - EYEGEN Id: [id number] Status: Fnl documented in this encounter Plan of Treatment Not on filedocumented as of this encounter Visit Diagnoses Not on filedocumented in this encounter Care Teams Tempering Oven Operator Relationship Specialty Start Date End Date Elsewhere, Pcp PCP - General Internal Medicine 02/04/22 documented as of this encounter
--- OUTSIDE RECORDS SUMMARY | 2022-02-19 14:06 | XMS_ITS | Encounter Summary ---
:1940 Author Organization [facility] Address [address] [place] [address] Care Team Providers Name Role Phone Unavailable [...] How often do you attend lutheran or moravian services? Patien t refused 10/29/2020 [...]
--- OUTSIDE RECORDS SUMMARY | 2022-02-19 14:06 | XMS_ITS | Encounter Summary ---
:1940 Author Organization [facility] Address [address] [place] [address] Care Team Providers Name Role Phone Reuben Cavazos B.M.B.S. Primary Care Provider Unavailable Encounter Details Date Type Department Care Team Description 09/09/2017 Orders Only Department of Family Reuben Cavazos Dia betes Mellitus Type Medicine, [facility] 2 With out Complication [facility] me ([facility]) [place], [place] [address] [place] [address] Social History Tobacco Use Types Packs/Day Years [...] How often do you attend samaritan or buddhism services? Patien t refused 10/29/2020 [...] (HCC) documented in this encounter Care Teams Campus Monitor Relationship Specialty Start Date End Date Reuben Cavazos B.M.BClarenceS. PCP - General Family Medicine 11/19/14 11/12/17 documented as of this encounter
--- OUTSIDE RECORDS SUMMARY | 2022-02-19 14:06 | XMS_ITS | Encounter Summary ---
:1940 Author Organization [facility] Address [address] [place] [address] Care Team Providers Name Role Phone Unavailable Primary Care Provider Unavailable Encounter Details Date Type Department Care Team Description 12/21/2013 Hospital Encounter HX NO MAPPING Rene Warren P.A.-C. [address] [place], [place] [phone] (Wo rk) Social History [...] How often do you attend confucianism or pentecostalism services? Patien t refused 10/29/2020 [...]
--- OUTSIDE RECORDS SUMMARY | 2022-02-19 14:06 | XMS_ITS | Encounter Summary ---
:1940 Author Organization [facility] Address [address] [place] [address] Care Team Providers Name Role Phone Elsewhere, Pcp Primary Care Provider Unavailable Encounter Details Date Type Department Care Team Description 01/18/2014 Historical Ophthalmology RST OPH Dharmesh Lopez O.D. [address] [place], [place] [address] (Wo rk) Social History [...] How often do you attend mosque or church services? Patien t refused 10/29/2020 [...] the morning. Glucose 103 on 12/20/13 and [id number] 6.4 on 12/26/13. Patient reports vision good [...] error (hyperopic astigmatism, presbyopia). CDM Reports - EYENPM Id: [id number] Status: Fnl documented in this encounter Plan of Treatment Not on filedocumented as of this encounter Visit Diagnoses Not on filedocumented in this encounter Care Teams Quantitative Software Engineer Relationship Specialty Start Date End Date Elsewhere, Pcp PCP - General Internal Medicine 02/04/22 documented as of this encounter
--- OUTSIDE RECORDS SUMMARY | 2022-02-19 14:06 | XMS_ITS | Encounter Summary ---
:1940 Author Organization [facility] Address [address] [place] [address] Care Team Providers Name Role Phone Elsewhere, Pcp Primary Care Provider Unavailable Encounter Details Date Type Department Care Team Description 10/30/2010 Historical Ophthalmology RST OPH Shabbir Rosario M.D. [address] [place], [place] [phone] (Wo rk) Social History [...] How often do you attend scientologist or jain services? Patien t refused 10/29/2020 [...] both eyes CDM Reports - EYEGEN Id: [id number] Status: Fnl documented in this encounter Plan of Treatment Not on filedocumented as of this encounter Visit Diagnoses Not on filedocumented in this encounter Care Teams Sap Bi Architect Relationship Specialty Start Date End Date Elsewhere, Pcp PCP - General Internal Medicine 02/04/22 documented as of this encounter
--- OUTSIDE RECORDS SUMMARY | 2022-02-19 14:06 | XMS_ITS | Encounter Summary ---
:1940 Author Organization [facility] Address [address] [place] [address] Care Team Providers Name Role Phone Elsewhere, Pcp Primary Care Provider Unavailable Encounter Details Date Type Department Care Team Description 12/05/2012 Historical Ophthalmology RST OPH StalboHailee ledesma O.D. [address] [place], [place] [phone] (Wo rk) Social History [...] How often do you attend orthodoxy or jainism services? Patien t refused 10/29/2020 [...] both eyes CDM Reports - EYEGEN Id: [id number] Status: Fnl documented in this encounter Plan of Treatment Not on filedocumented as of this encounter Visit Diagnoses Not on filedocumented in this encounter Care Teams Seamless Hosiery Knitter Relationship Specialty Start Date End Date Elsewhere, Pcp PCP - General Internal Medicine 02/04/22 documented as of this encounter
--- OUTSIDE RECORDS SUMMARY | 2022-02-19 14:06 | XMS_ITS | Encounter Summary ---
:1940 Author Organization [facility] Address [address] [place] [address] Care Team Providers Name Role Phone Bryce Monahan D.O. Primary Care Provider Encounter Details Date Type [...] How often do you attend sikhism or faith services? Patien t refused 10/29/2020 [...] on filedocumented in this encounter Care Teams Drafter Geological Relationship Specialty Start Date End Date Bryce Monahan D.O. PCP - General Family Medicine 11/13/17 01/18/[address] [place] [address] documented as of this encounter
--- OUTSIDE RECORDS SUMMARY | 2022-02-19 14:06 | XMS_ITS | Encounter Summary ---
:1940 Author Organization [facility] Address [address] [place] [address] Care Team Providers Name Role Phone Bryce Monahan D.O. Primary Care Provider [phone] Reason for Referral Outpatient (Routine) - Closed Specialty Diagnoses / Procedures Referred By Contact Refer red To Contact Family Medicine Kristal Galeana M.D. [address] [place] [address] Referral ID Status Reason Start Date Expiration Date Visits Requ ested Visits Authorized [id number] Closed 12/01/2017 12/01/2018 [address] Galeana if possible Reason for Visit Reason Comments Other spot on neck Appointment Request (Routine) - Closed Specialty Diagnoses / Procedures Referred By Contact Refer red To Contact Family Medicine Referral ID Status Reason Start Date Expiration Date Visits Requ ested Visits Authorized [id number] Closed 11/30/2017 11/30/2018 1 1 Encounter Details Date Type Department Care Team Description 12/01/2017 Office Visit Department of Kristal Ramon Lesio n Skin Neck (Primary Dx); Medicine, Estiven Osborn M.D. [facility] [address] [place] [address] [address] [facility] [phone] [place] [address] (Work) [phone] Social History Tobacco Use Types Packs/Day Years [...] How often do you attend caodaism or methodist services? Patien t refused 10/29/2020 [...] Order S [facility] Family Medicine Outpatient Referral Routine Expec margoth: office visit 12/01/2017 (clinic) (Approximate), Expires: 12/01/2020 documented as of this encounter Visit Diagnoses Diagnosis Lesion Skin Neck - Primary Tag Skin documented in this encounter Care Teams Director Pharmacovigilance Relationship Specialty Start Date End Date Bryce Monahan D.O. PCP - General Family Medicine 11/13/17 01/18/18 [address] [place] [address] documented as of this encounter
--- OUTSIDE RECORDS SUMMARY | 2022-02-19 14:06 | XMS_ITS | Encounter Summary ---
:1940 Author Organization [facility] Address [address] [place] [address] Care Team Providers Name Role Phone Elsewhere, Pcp Primary Care Provider Unavailable Encounter Details Date Type Department Care Team Description 01/29/2017 Historical Ophthalmology RST OPH Tania Michaels O.D. [address] [place], [place] [phone] (Wo rk) Social History [...] How often do you attend episcopal or sabianist services? Patien t refused 10/29/2020 [...] eyes, not visually significant. CDM Reports - EYETeach Me To Be Id: [id number] Status: Fnl documented in this encounter Plan of Treatment Not on filedocumented as of this encounter Visit Diagnoses Not on filedocumented in this encounter Care Teams Distribution Clerk Relationship Specialty Start Date End Date Elsewhere, Pcp PCP - General Internal Medicine 02/04/22 documented as of this encounter
--- OUTSIDE RECORDS SUMMARY | 2022-02-19 14:06 | XMS_ITS | Encounter Summary ---
:1940 Author Organization [facility] Address [address] [place] [address] Care Team Providers Name Role Phone Unavailable [...] How often do you attend restorationist or baptist services? Patien t refused 10/29/2020 [...]
--- OUTSIDE RECORDS SUMMARY | 2022-02-19 14:06 | XMS_ITS | Encounter Summary ---
:1940 Author Organization [facility] Address [address] [place] [address] Care Team Providers Name Role Phone Elsewhere, Pcp Primary Care Provider Unavailable Encounter Details Date Type Department Care Team Description 11/27/2011 Historical Ophthalmology RST OPH Tania Michaels O.D. [address] [place], [place] [phone] (Wo rk) Social History [...] How often do you attend mormon or sikhism services? Patien t refused 10/29/2020 Do you belong to any clubs or organizations such as Not jelani borrero mormon groups, unions, fraternal or athletic [...] both eyes CDM Reports - EYEGEN Id: [id number] Status: Fnl documented in this encounter Plan of Treatment Not on filedocumented as of this encounter Visit Diagnoses Not on filedocumented in this encounter Care Teams Metal Sprayer Relationship Specialty Start Date End Date Elsewhere, Pcp PCP - General Internal Medicine 02/04/22 documented as of this encounter
--- OUTSIDE RECORDS SUMMARY | 2022-02-19 14:06 | XMS_ITS | Encounter Summary ---
:1940 Author Organization [facility] Address [address] [place] [address] Care Team Providers Name Role Phone Reuben [...] How often do you attend protestant or confucianist services? Patien t refused 10/29/2020 Do you belong to any clubs or organizations such as Not maye gissell protestant groups, unions, fraternal or athletic groups, [...] on filedocumented in this encounter Care Teams Plasticator Relationship Specialty Start Date End Date Reuben Cavazos B.M.B.S. PCP - General Family Medicine 11/19/14 11/12/17 documented as of this encounter
--- OUTSIDE RECORDS SUMMARY | 2022-02-19 14:06 | XMS_ITS | Encounter Summary ---
:1940 Author Organization [facility] Address [address] [place] [address] Care Team Providers Name Role Phone Reuben Cavazos Primary Care Provider Unavailable Reason for Referral Outpatient (Routine) - Closed Specialty Diagnoses / Procedures Referred By Contact Refer red To Contact Orthopedic Surgery Roslyn Veliz APRN, [place] C.N.PClarence Referral ID Status Reason Start Date Expiration Date Visits Requ ested Visits Authorized [id number] Closed 10/13/2017 10/13/2018 1 1 Encounter Details Date Type Department Care Team Description 10/13/2017 Procedure visit Department of Roslyn Veliz Callus Co rn Foot (Primary Dx); Orthopedic Surgery in [place] C.N. PClarence Diabetes Mellitus Type 2 (HCC); [place], [place] [phone] Diabetes Mellitus Type 2 Wit h Diabetic Neuropathy (HCC) [address] [facility] (Work) [place], [place] [phone] (Fax) [phone] Social History Tobacco Use Types Packs/Day Years [...] How often do you attend hinduism or druze services? Patien t refused 10/29/2020 [...] as of this encounter Consult Notes Roslyn Veliz, [place], C.N.P. - 10/13/2017 1:30 PM CDT SUBJECTIVE Pain reported: Site 1 Pain Score: 4, Pain Location: Foot (Callas on bottom of both feet), (10/13/17 1319 : Myah Weaver) REASON FOR CONSULT Vinayak Vazquez is a 77 y.o. male who presents for evaluation of calluses with possible ulceration andis under the care of Xavier Valdez. HISTORY OF PRESENT ILLNESS Mr. Vazquez presents to the [facility] Pod[facility]ry [facility] with calluses on bilateral [...] Diabetes Mellitus Type 2 (HCC) #2 Callus Sieper Foot #3 Hyperlipidemia #4 Hypertension #5 Diabetes [...] pain. 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 PCP - General Family Medicine 11/19/14 11/12/17 documented as of this encounter
--- OUTSIDE RECORDS SUMMARY | 2022-02-19 14:06 | XMS_ITS | Encounter Summary ---
:1940 Author Organization [facility] Address [address] [place] [address] Care Team Providers Name Role Phone Unavailable [...] How often do you attend jewish or druze services? Patien t refused 10/29/2020 [...]
--- OUTSIDE RECORDS SUMMARY | 2022-02-19 14:06 | XMS_ITS | Encounter Summary ---
:1940 Author Organization [facility] Address [address] [place] [address] Care Team Providers Name Role Phone Reuben Cavazos.M.B.S. Primary Care Provider Unavailable Reason for Visit Reason Onset Date Comments Appointment 10/12/2017 Encounter Details Date Type Department Care Team Description 10/12/2017 Clinical Communication Department of Cathy Casas, Appointment Medicine, [facility] Riddhi.M.B.SClarence [place], [place] [address] [place] [address] Social History Tobacco Use Types Packs/Day Years [...] How often do you attend advent or gnosticism services? Patien t refused 10/29/2020 [...] place that order for him. His number [phone]. Please respond to RST E[facility]AS[facility] Scheduling pool if necessary documented in this encounter Plan of Treatment Scheduled Orders Name Type Priority Associated Diagnoses Order S [facility] Podiatry Procedure Procedures Routine Diabetes Mellitus Type Expected: 10/12/2017 Clinic 2 ([facility]) (Approximate), Expires: 2020 documented as of this encounter Visit Diagnoses Diagnosis Diabetes Mellitus Type 2 (HCC) - Primary documented in this encounter Care Teams Geomatics Professor Relationship Specialty Start Date End Date Reuben Cavazos B.M.B.S. PCP - General Family Medicine 11/19/14 11/12/17 documented as of this encounter
--- OUTSIDE RECORDS SUMMARY | 2022-02-19 14:06 | XMS_ITS | Encounter Summary ---
:1940 Author Organization [facility] Address [address] [place] [address] Care Team Providers Name Role Phone Unavailable [...] How often do you attend adventism or yazdanism services? Elizabeth t refused 10/29/2020 Do you [...] Results Glucose, POCT (12/27/2013 12:13 PM CDT) [facility] Method Time Signature Last Intake 3-4 hours [facility] Glucose, 136 70 - 140 [facility] POCT, B MG/DL LABORATORIES - [facility] Sample Site, Capillary [facility] Blood Gas, LABORATORIES - POCT [facility] Specimen Anatomical Collection Method Collection Time Receive d Time (Source) Location / / Volume Laterality 12/27/2013 12:13 12/27/2013 PM CDT 12:13 PM CDT Historical Provider LAB POCT ORDERABLES-MANUAL Performing Organization Address City/[facility]/ZIP Code Phon e Number [facility] LABORATORIES - [address] [place] [address] 05 [facility] Glucose, POCT (12/27/2013 6:21 AM CDT) P athologist Signature Glucose, POCT, 131 70 - 140 [facility] B MG/DL [facility]ATORIES - [facility] Specimen Anatomical Collection Method Collection Time Receive d Time (Source) Location / / Volume Laterality 12/27/2013 6:21 AM 4 6:21 CDT AM CDT Historical Provider LAB POCT ORDERABLES-MANUAL Performing Organization Address City/[facility] Phon e Number [facility]ATORIES - [address] [place] [phone] 05 [facility] (ABNORMAL) Glucose, POCT (12/26/2013 9:46 PM CDT) Patholo gist Method Time Signature Glucose, 163 (H) 70 - 140 [facility] POCT, B MG/DL LABORATORIES - [facility] Sample Site, Capillary [facility] Blood Gas, LABORATORIES - POCT [facility] Last Intake 3-4 hours [facility]ATORIES - [facility] Specimen Anatomical Collection Method Collection Time Receive d Time (Source) Location / / Volume Laterality 12/26/2013 9:46 PM 4 9:46 CDT PM CDT Historical Provider LAB POCT ORDERABLES-MANUAL Performing Organization Address City/[facility] Phon e Number [facility]ATORIES - [address] [place] [address] [facility] (ABNORMAL) Glucose, POCT (12/26/2013 5:12 PM CDT) Patholo gist Method Time Signature Glucose, POCT, 163 (H) 70 - 140 [facility] B MG/DL [facility]IES - [facility] Specimen Anatomical Collection Method Collection Time Receive d Time (Source) Location / / Volume Laterality 12/26/2013 5:12 PM 4 5:12 CDT PM CDT Historical Provider LAB POCT ORDERABLES-MANUAL Performing Organization Address City/[facility]/ZIP Code Phon e Number [facility]ATORIES - [address] [place] [address] [facility] (ABNORMAL) Glucose, POCT (12/26/2013 12:02 PM CDT) [facility] Method Time Signature Glucose, 147 (H) 70 - 140 [facility] POCT, B MG/DL [facility]IES - [facility] Sample Site, Capillary [facility] Blood Gas, LABORATORIES - POCT [facility] Last Intake 3-4 hours [facility] Specimen Anatomical Collection Method Collection Time Receive d Time (Source) Location / / Volume Laterality 12/26/2013 12:02 12/26/2013 PM CDT 12:02 PM CDT Historical Provider LAB POCT ORDERABLES-MANUAL Performing Organization Address City/[facility]/ZIP Code Phon e Number [facility]IES - [address] [place] [address] [facility] Glucose, POCT (12/26/2013 6:20 AM CDT) P athologist Signature Glucose, POCT, 115 70 - 140 [facility] B MG/DL [facility] - [facility] Specimen Anatomical Collection Method Collection Time Receive d Time (Source) Location / / Volume Laterality 12/26/2013 6:20 AM 4 6:20 CDT AM CDT Historical Provider LAB POCT ORDERABLES-MANUAL Performing Organization Address City/[facility]/ZIP Code Phon e Number [facility]IES - [address] [place] [address] 05 [facility] (ABNORMAL) Hemoglobin A1c (12/26/2013 4:18 AM CDT) [facility] gist Method Time Signature Hemoglobin A1c, 6.4 (H) 4.0 - 6.0 [facility] B % [facility]ATORIES - [facility] Specimen Anatomical Collection Method Collection Time Receive d Time (Source) Location / / Volume Laterality 12/26/2013 4:18 AM 4 4:18 CDT AM CDT Rene Warren P.A.-C. LAB BLOOD ADD-ON Performing Organization Address City/[facility]/ZIP [facility] Phon e Number [facility]IES - [address] [place] [address] [facility] (ABNORMAL) CBC without Differential (12/26/2013 4:18 AM CDT) Patholo gist Method Time Signature Erythrocytes 4.38 4.32 - [facility] 5.72 LABORATORIES - X10(12)/L [facility] MCV 85.2 81.2 - [facility] 95.1 FL LABORATORIES - [facility] Leukocytes 7.7 3.5 - [facility] 10.5 LABORATORIES - X10(9)/L [facility] Hemoglobin 12.9 (L) 13.5 - [facility] 17.5 G/DL LABORATORIES - [facility] Hematocrit 37.3 (L) 38.8 - [facility] 50.0 % LABORATORIES - [facility] RBC Distrib 13.5 11.8 - [facility] Width 15.6 % [facility] - [facility] Platelet Count 180 150 - 450 [facility] X10(9)/L [facility] - [facility] Specimen Anatomical Collection Method Collection Time Receive d Time (Source) Location / / Volume Laterality 12/26/2013 4:18 AM 4 4:18 CDT AM CDT Rene Warren P.A.-C. LAB BLOOD ADD-ON Performing Organization Address City/State/ZIP Code Phon e Number [facility]ATORIES - [address] [place], [place] [address] [facility] Electrolyte (Chem 4) Panel (12/26/2013 4:18 AM CDT) Analysis Performed At [facility] logist Time Signature Chloride, S 100 98 - 107 [facility] MMOL/L [facility] - [facility] HX Bicarbonate, 25 22 - 29 [facility] P/S MMOL/L LABORATORIES - [facility] Anion Gap 12 7 - 15 [facility] - [facility] Glucose, S 108 70 - 140 [facility] MG/DL [facility] Sodium, S 137 135 - 145 [facility] MMOL/L [facility] - [facility] Potassium, S 4.0 3.6 - 5.2 [facility] MMOL/L [facility] - [facility] Creatinine 1.0 0.8 - 1.3 [facility] MG/DL [facility] - [facility] BUN (Blood Urea 13 8 - 24 [facility] Nitrogen), S MG/DL [facility] - [facility] Specimen Anatomical Collection Method Collection Time Receive d Time (Source) Location / / Volume Laterality 12/26/2013 4:18 AM 4 4:18 CDT AM CDT Rene Warren P.A.-C. LAB BLOOD ADD-ON Performing Organization Address City/[facility]/ZIP Code Phon e Number [facility]IES - [address] [place] [address] [facility] (ABNORMAL) Glucose, POCT (12/25/2013 9:56 PM CDT) [facility] Method Time Signature Glucose, 170 (H) 70 - 140 [facility] POCT, B MG/DL LABORATORIES - [facility] Sample Site, Capillary [facility] Blood Gas, LABORATORIES - POCT [facility] Last Intake 3-4 hours [facility] Specimen Anatomical Collection Method Collection Time Receive d Time (Source) Location / / Volume Laterality 12/25/2013 9:56 PM 4 9:56 CDT PM CDT Historical Provider LAB POCT ORDERABLES-MANUAL Performing Organization Address City/[facility]/ZIP [facility] Phon e Number [facility]ATORIES - [address] [place] [address] [facility] Glucose, POCT (12/25/2013 5:14 PM CDT) [facility] Method [place] Signature Glucose, 113 70 - 140 [facility] POCT, B MG/DL LAB[facility]ATORIES - [facility] Sample Site, Capillary [facility] Blood Gas, LABORATORIES - POCT [facility] Last Intake 2-3 hours [facility] Specimen Anatomical Collection Method Collection Time Receive d Time (Source) Location / / Volume Laterality 12/25/2013 5:14 PM 4 5:14 CDT PM CDT Historical Provider LAB POCT ORDERABLES-MANUAL Performing Organization Address City/[facility]/ZIP [facility] Phon e Number [facility]IES - [address] [place] [address] [facility] Glucose, POCT (12/25/2013 11:51 AM CDT) [facility] Method Time Signature Glucose, 129 70 - 140 [facility] POCT, B MG/DL LAB[facility]ATORIES - [facility] Sample Site, Capillary [facility] Blood Gas, LABORATORIES - POCT [facility] Last Intake NPO [facility] Specimen Anatomical Collection Method Collection Time Receive d Time (Source) Location / / Volume Laterality 12/25/2013 11:51 12/25/2013 AM CDT 11:51 AM CDT Historical Provider LAB POCT ORDERABLES-MANUAL Performing Organization Address City/State/ZIP Code Phon e Number [facility]IES - [address] [place], [place] [address] [facility] DX Knee 2 Views (12/25/2013 10:53 [...] Signature Glucose, POCT, 124 70 - 140 [facility] B MG/DL LAB[facility]ATORIES - [facility] Specimen Anatomical Collection Method Collection Time Receive d Time (Source) Location / / Volume Laterality 12/25/2013 10:46 12/25/2013 AM CDT 10:46 AM CDT Historical Provider LAB POCT ORDERABLES-MANUAL Performing Organization Address City/State/ZIP Code Phon e Number [facility]IES - [address] [place], [place] [address] [facility] Glucose, POCT (12/25/2013 9:20 AM CDT) [facility] Method Time Signature Glucose, 124 70 - 140 [facility] POCT, B MG/DL LABORATORIES - [facility] Sample Site, Capillary [facility] Blood Gas, LABORATORIES - POCT [facility] Specimen Anatomical Collection Method Collection Time Receive d Time (Source) Location / / Volume Laterality 12/25/2013 9:20 AM 4 9:20 CDT AM CDT Historical Provider LAB POCT ORDERABLES-MANUAL Performing Organization Address City/State/ZIP Code Phon e Number [facility]IES - [address] [place], [place] [address] [facility] Glucose, POCT (12/25/2013 5:48 AM CDT) [facility] Method Time Signature Glucose, 120 70 - 140 [facility] POCT, B MG/DL LABORATORIES - [facility] Sample Site, Capillary [facility] Blood Gas, LABORATORIES - POCT [facility] Last Intake NPO [facility]IES - [facility] Specimen Anatomical Collection Method Collection Time Receive d Time (Source) Location / / Volume Laterality 12/25/2013 5:48 AM 4 5:48 CDT AM CDT Historical Provider LAB POCT ORDERABLES-MANUAL Performing Organization Address City/State/ZIP Code Phon e Number [facility]ATORIES - [address] [place], [place] [address] [facility] documented in this encounter Visit Diagnoses Not on filedocumented in this encounter
--- OUTSIDE RECORDS SUMMARY | 2022-02-19 14:06 | XMS_ITS | Encounter Summary ---
:[address] [facility] Address [address] [place] [address] Care Team Providers Name Role Phone Unavailable [...] How often do you attend latter-day or jewish services? Patien t refused 10/29/2020 [...]
--- OUTSIDE RECORDS SUMMARY | 2022-02-19 14:06 | XMS_ITS | Encounter Summary ---
:1940 Author Organization [facility] Address [address] [place] [address] Care Team Providers Name Role Phone Reuben Cavazos Primary Care Provider Unavailable Reason for Visit Reason Comments Immunizations Appointment Request (Routine) - Closed Specialty Diagnoses / Procedures Referred By Contact Refer red To Contact Family Medicine Referral ID Status Reason Start Date Expiration Date Visits Requ ested Visits Authorized [id number] Closed 10/12/2017 10/12/2018 1 1 Encounter Details Date Type Department Care Team Description 11/10/2017 Nurse Only Department of Family Sarah Ortiz L.P.N . Immunizations Medicine, [facility] [address] [place] [address] Social History Tobacco Use Types Packs/Day Years [...] 10/29/2020 relatives? How often do you attend yazdanism or taoism services? Patien t refused 10/29/2020 Do you belong to any clubs or organizations such as Nabil borrero yazdanism groups, unions, fraternal or athletic groups, or [...] Primary documented in this encounter Care Teams Kettle Girl Relationship Specialty Start Date End Date Reuben Cavazos B.M.B.S. PCP - General Family Medicine 11/19/14 11/12/17 documented as of this encounter
--- OUTSIDE RECORDS SUMMARY | 2022-02-19 14:06 | XMS_ITS | Encounter Summary ---
:1940 Author Organization [facility] Address [address] [place] [address] Care Team Providers Name Role Phone Unavailable [...] How often do you attend latter-day or oriental orthodox services? Patien t refused 10/29/2020 Do you belong to any clubs or organizations such as Not jelani borrero latter-day groups, unions, fraternal or athletic [...] Results Glucose, POCT (09/12/2013 5:43 AM CDT) [facility] Method Time Signature Last Intake 3-4 hours [facility] LABORATORIES [facility] Glucose, 132 70 - 140 [facility] POCT, B MG/DL LABORATORIES - [facility] Sample Site, Capillary [facility] Blood Gas, LABORATORIES - POCT [facility] Specimen Anatomical Collection Method Collection Time Receive d Time (Source) Location / / Volume Laterality 09/12/2013 5:43 AM 4 5:43 CDT AM CDT Historical Provider LAB POCT ORDERABLES-MANUAL Performing Organization Address City/State/ZIP Code Phon e Number [facility] LAB[facility]ATORIES - [address] [place], [place] [address] [facility] (ABNORMAL) Glucose, POCT (09/11/2013 10:14 PM CDT) [employer] gist Method Time Signature Last Intake 3-4 hours [facility] Glucose, 159 (H) 70 - 140 [facility] POCT, B MG/DL LABORATORIES - [facility] Sample Site, Capillary [facility] Blood Gas, LABORATORIES - POCT [facility] Specimen Anatomical Collection Method Collection Time Receive d Time (Source) Location / / Volume Laterality 09/11/2013 10:14 09/11/2013 PM CDT 10:14 PM CDT Historical Provider LAB POCT ORDERABLES-MANUAL Performing Organization Address City/[facility] Phon e Number [facility] LAB[facility]ATORIES - [address] [place], [place] [address] [facility] Glucose, POCT (09/11/2013 6:01 PM CDT) [facility] Method Time Signature Glucose, 116 70 - 140 [facility] POCT, B MG/DL LABORATORIES - [facility] Sample Site, Capillary [facility] Blood Gas, LABORATORIES - POCT [facility] Last Intake > 4 hours [facility] - [facility] Specimen Anatomical Collection Method Collection Time Receive d Time (Source) Location / / Volume Laterality 09/11/2013 6:01 PM 4 6:01 CDT PM CDT Historical Provider LAB POCT ORDERABLES-MANUAL Performing Organization Address City/[facility] Phon e Number [facility]IES - [address] [place], [place] [address] [facility] Glucose, POCT (09/11/2013 1:24 PM CDT) [facility] Method Time Signature Glucose, 133 70 - 140 [facility] POCT, B MG/DL LABORATORIES - [facility] Sample Site, Capillary [facility] Blood Gas, LABORATORIES - POCT [facility] Last Intake > 4 hours [facility] - [facility] Specimen Anatomical Collection Method Collection Time Receive d Time (Source) Location / / Volume Laterality 09/11/2013 1:24 PM 4 1:24 CDT PM CDT Historical Provider LAB POCT ORDERABLES-MANUAL Performing Organization Address City/[facility]/ZIP Code Phon e Number [facility]IES - [address] [place], [place] [address] [facility] Glucose, POCT (09/11/2013 12:39 PM CDT) [facility] Method Time Signature Glucose, 132 70 - 140 [facility] POCT, B MG/DL LABORATORIES - [facility] Sample Site, Capillary [facility] Blood Gas, LABORATORIES - POCT [facility] Specimen Anatomical Collection Method Collection Time Receive d Time (Source) Location / / Volume Laterality 09/11/2013 12:39 09/11/2013 PM CDT 12:39 PM CDT Historical Provider LAB POCT ORDERABLES-MANUAL Performing Organization Address City/[facility]/ZIP Code Phon e Number [facility]IES - [address] [place], [place] [address] [facility] Glucose, POCT (09/11/2013 12:14 PM CDT) [facility] Method Time Signature Glucose, 123 70 - 140 [facility] POCT, B MG/DL LABORATORIES - [facility] Sample Site, Capillary [facility] Blood Gas, LABORATORIES - POCT [facility] Specimen Anatomical Collection Method Collection Time Receive d Time (Source) Location / / Volume Laterality 09/11/2013 12:14 09/11/2013 PM CDT 12:14 PM CDT Varun Guerrier M.D. LAB POCT ORDERABLES-MANUAL Performing Organization Address City/State/ZIP Code Phon e Number [facility]IES - [address] [place], [place] [address] [facility] (ABNORMAL) Glucose, POCT (09/11/2013 10:21 AM CDT) [facility] Method Time Signature Glucose, 142 (H) 70 - 140 [facility] POCT, B MG/DL LABORATORIES - [facility] Sample Site, Capillary [facility] Blood Gas, LABORATORIES - POCT [facility] Specimen Anatomical Collection Method Collection Time Receive d Time (Source) Location / / Volume Laterality 09/11/2013 10:21 09/11/2013 AM CDT 10:21 AM CDT Varun Guerrier M.D. LAB POCT ORDERABLES-MANUAL Performing Organization Address City/State/ZIP Code Phon e Number [facility]ATORIES - [address] [place] [phone] [facility] Dx Spine 1 View (09/11/2013 [...] Electronically signed by: ?? Josh Huff MD. ??[id number] 11-Sep-2013 10:1 7 Procedure Note Romy Huff [...] Time Signature Last Intake > 4 hours [facility]IES - [facility] Glucose, 142 (H) 70 - 140 [facility] POCT, B MG/DL LABORATORIES - [facility] Sample Site, Capillary [facility] Blood Gas, LABORATORIES - POCT [facility] Specimen Anatomical Collection Method Collection Time Receive d Time (Source) Location / / Volume Laterality 09/11/2013 6:19 AM 4 6:19 CDT AM CDT Historical Provider LAB POCT ORDERABLES-MANUAL Performing Organization Address City/State/ZIP Code Phon e Number [facility]IES - [address] [place], [place] [address] [facility] documented in this encounter Visit Diagnoses Not on filedocumented in this encounter
--- OUTSIDE RECORDS SUMMARY | 2022-02-19 14:06 | XMS_ITS | Encounter Summary ---
:1940 Author Organization [facility] Address [address] [place] [address] Care Team Providers Name Role Phone Bryce Monahan D.O. Primary Care Provider [phone] Reason for Visit Outpatient (Routine) - Closed Specialty Diagnoses / Procedures Referred By Contact Refer red To Contact Family Medicine Jamarcus Galeana M.D. [address] [place] [address] Referral ID Status Reason Start Date Expiration Date Visits Requ ested Visits Authorized [id number] Closed 12/01/2017 12/01/2018 1 1 Encounter Details Date Type Department Care Team Description 12/01/2017 Office Visit Department of Family Jamarcus Galeana Lesio n Skin Chest (Primary Dx); Medicine, [facility] Alonso [facility] [address] [place] [address] 411 [facility] [phone] [place] [address] (Work) [phone] Social History Tobacco Use Types Packs/Day Years [...] How often do you attend taoism or latter-day services? Patien t refused 10/29/2020 [...] as of this encounter Procedure Notes Jamarcus Glaeana M.D. - 12/01/2017 4:00 PM CDTAssociated Order(s): [...] with the patient and/or decision maker.: Yes Braith[place]ite protocol: All relevant documentation and testing were [...] with the patient and/or decision maker.: yes Braith[place]ite protocol: All relevant documentation and testing were [...] Procedure Name Priority Date/Time Associated Comments Diagnosis NC RMVL SKIN TAGS <=15 Routine 12/01/2017 9:00 Tag Skin Re sults for this PM CDT procedure are i n the results section. NC BX SKIN/SUBQ TISS 1ST Routine 12/01/2017 9:00 Lesion Skin C hest Results for this LESION PM CDT procedure are i n the results section. DERMATOPATHOLOGY Routine 12/01/2017 5:06 Lesion Skin Chest Res ults for this PM CDT procedure are i n the results section. documented in this encounter Results NC RMVL SKIN TAGS <=15 (12/01/2017 9:00 PM [...] the patient and/or decision maker.: yes ?? Bra[place]waite protocol: ??All relevant documentation and testin g [...] Code Phon e Number MMODAL MMODAL NA NC BX SKIN/SUBQ TISS 1ST LESION (12/01/2017 9:00 [...] the patient and/or decision maker.: Yes ?? Bra[place]ite protocol: ??All relevant documentation and testin g [...] Component Value Ref Test Analysis Performed At [facility] Range Method Time Signature Gross Description Received in formalin labeled with the patient's n shad and 12/06/2017 [facility] assigned specimen ID number [id number] and labeled as 11:02 AM LABORATORIES - right upper chest is a 0.7 x 0.5 x 0.1 cm pak-white skin [facility] shave biopsy. ??There is a 0.5 x 0.4 cm pak-white pigmented CAMPUS lesion peripherally located on the skin surface. ??Specimen is bisected and submitted entirely in cassette A1. Grossed by ABRAHAM. Report Tad Moreno 12/06/2017 [facility] electronically Alonso Early 11:02 AM LABORATORIES - signed by [facility] 12/06/2017 [facility] 11:02 AM LABORATORIES - [facility] Interpretation FINAL DIAGNOSIS 12/06/2017 [facility] A. ??Right upper chest, Skin shave biopsy: ??Seborrheic 11:02 AM LABORATORIES - keratosis [facility] Specimen Anatomical Collection Method Collection Time Receive d Time (Source) Location / / Volume Laterality Varies 12/01/2017 5:06 PM 8 6:46 CDT PM CDT Narrative This result has an attachment that is no t available. Jamarcus Galeana M.D. LAB PATH DERM ORDERABLES Performing Organization Address City/State/ZIP Code Phon e Number [facility] LAB[facility]ATORIES - [address] [place], [place] [address] [facility] documented in this encounter Visit Diagnoses Diagnosis Lesion Skin Chest - Primary Tag Skin documented in this encounter Care Teams Cigar Making Machine Operator Relationship Specialty Start Date End Date Bryce Monahan D.O. PCP - General Family Medicine 11/13/17 01/18/18 [address] [place] [address] documented as of this encounter
--- OUTSIDE RECORDS SUMMARY | 2022-02-19 14:07 | XMS_ITS | Encounter Summary ---
:1939 Author Organization [facility] Address [address] [place] [address] Care Team Providers Name Role Phone Elsewhere, Pcp Primary Care Provider Unavailable Encounter Details Date Type Department Care Team Description 12/11/2004 Historical Ophthalmology RST OPH Morris Andrade O.D. [address] [place], [place] [phone] (Wo rk) Social History [...] How often do you attend yazidism or hoahaoism services? Patien t refused 10/29/2020 [...] (hyperopia, presbyopia). CDM Reports - EYEGEN Id: [id number] Status: Fnl documented in this encounter Plan of Treatment Not on filedocumented as of this encounter Visit Diagnoses Not on filedocumented in this encounter Care Teams Gravel Truck Driver Relationship Specialty Start Date End Date Elsewhere, Pcp PCP - General Internal Medicine 02/04/22 documented as of this encounter
--- OUTSIDE RECORDS SUMMARY | 2022-02-19 14:07 | XMS_ITS | Encounter Summary ---
:1939 Author Organization [facility] Address [address] [place] [address] Care Team Providers Name Role Phone Unavailable [...] How often do you attend jain or church services? Patien t refused 10/29/2020 [...]
--- OUTSIDE RECORDS SUMMARY | 2022-02-19 14:07 | XMS_ITS | Encounter Summary ---
:1940 Author Organization [facility] Address [address] [place] [address] Care Team Providers Name Role Phone Unavailable [...] How often do you attend episcopalian or adventism services? Patien t refused 10/29/2020 [...]
--- OUTSIDE RECORDS SUMMARY | 2022-02-19 14:07 | XMS_ITS | Encounter Summary ---
:1939 Author Organization [facility] Address [address] [place] [address] Care Team Providers Name Role Phone Elsewhere, Pcp Primary Care Provider Unavailable Encounter Details Date Type Department Care Team Description 03/30/2007 Historical Ophthalmology RST OPH Dharmesh Lopez O.D. [address] [place], [place] [address] (Wo rk) Social History [...] How often do you attend jewish or congregation services? Patien t refused 10/29/2020 [...] visually significant. CDM Reports - EYEGEN Id: [id number] Status: Fnl documented in this encounter Plan of Treatment Not on filedocumented as of this encounter Visit Diagnoses Not on filedocumented in this encounter Care Teams Museum Guide Relationship Specialty Start Date End Date Elsewhere, Pcp PCP - General Internal Medicine 02/04/22 documented as of this encounter
--- OUTSIDE RECORDS SUMMARY | 2022-02-19 14:07 | XMS_ITS | Encounter Summary ---
:1939 Author Organization [facility] Address [address] [place] [address] Care Team Providers Name Role Phone Elsewhere, Pcp Primary Care Provider Unavailable Encounter Details Date Type Department Care Team Description 03/15/2008 Historical Ophthalmology RST OPH Tania Mihcaels O.D. [address] [place], [place] [phone] (Wo rk) Social History [...] How often do you attend taoist or baptism services? Patien t refused 10/29/2020 [...] without retinopathy CDM Reports - EYEGEN Id: [id number] Status: Fnl documented in this encounter Plan of Treatment Not on filedocumented as of this encounter Visit Diagnoses Not on filedocumented in this encounter Care Teams Blood Typer Relationship Specialty Start Date End Date Elsewhere, Pcp PCP - General Internal Medicine 02/04/22 documented as of this encounter
--- OUTSIDE RECORDS SUMMARY | 2022-02-19 14:07 | XMS_ITS | Encounter Summary ---
:1939 Author Organization [facility] Address [address] [place] [address] Care Team Providers Name Role Phone Elsewhere, Pcp Primary Care Provider Unavailable Encounter Details Date Type Department Care Team Description 02/11/2006 Historical Ophthalmology RST OPH Morris Andrade O.D. [address] [place], [place] [phone] (Wo rk) Social History [...] How often do you attend rastafari or taoism services? Patien t refused 10/29/2020 [...] visually significant. CDM Reports - EYEGEN Id: [id number] Status: Fnl documented in this encounter Plan of Treatment Not on filedocumented as of this encounter Visit Diagnoses Not on filedocumented in this encounter Care Teams Gallery Director Relationship Specialty Start Date End Date Elsewhere, Pcp PCP - General Internal Medicine 02/04/22 documented as of this encounter
--- OUTSIDE RECORDS SUMMARY | 2022-02-19 14:07 | XMS_ITS | Encounter Summary ---
:1939 Author Organization [facility] Address [address] [place] [address] Care Team Providers Name Role Phone Elsewhere, [...] How often do you attend taoism or mormonism services? Patien t refused 10/29/2020 [...] astigmatism, presbyopia) CDM Reports - EYEGEN Id: [id number] Status: Fnl documented in this encounter Plan of Treatment Not on filedocumented as of this encounter Visit Diagnoses Not on filedocumented in this encounter Care Teams Stogy Roller Relationship Specialty Start Date End Date Elsewhere, Pcp PCP - General Internal Medicine 02/04/22 documented as of this encounter
--- OUTSIDE RECORDS SUMMARY | 2022-02-19 14:07 | XMS_ITS | Encounter Summary ---
:1939 Author Organization [facility] Address [address] [place] [address] Care Team Providers Name Role Phone Unavailable [...] How often do you attend zoroastrianism or alevism services? Elizabeth t refused 10/29/2020 Do you [...]
--- OUTSIDE RECORDS SUMMARY | 2022-02-19 14:09 | XMS_ITS | Clinical Summary ---
:1939 Author Organization [facility] [facility] [place] [address] Care Team Providers Name Role Phone Raul [...] Encounters Date Type Specialty Care Team Description 02/17/2022 Lab Requisition Maricel Rouse MD 02/05/2022 Office Visit Mario Romero Ulcer ( Follow up-right DPM great toe ulcer ) 02/05/2022 Travel 12/25/2021 Office Visit Mario Romero, Ulcer ( Follow up-right DPM great toe heale d ulcer) 12/25/2021 Travel from Last 3 Months Social [...] 03/19/2022 Office Visit Meera Romero, DPM [address] [address] (Wo rk) Health Maintenance Due Date [...] MEDICARE PART B - MEDICARE PART B [id number] 2004-Prese ATTN: CLAIMS HB USE ONLY HB ONLY nt [address] [place] [address] [facility] MR [id number] 2021-Sonja [address] [address] [place] [address] Care Teams Snapper On Relationship Specialty Start Date End Date Pima, Raul Lozano MD PCP - General 08/28/16 [facility] [address] [address]
[2022-02-19 21:50] LABS: Chloride* 97 mmol/L (96-114); Potassium* 4.1 mmol/L (3.6-5.1); Sodium* 136 mmol/L (135-149)
[2022-02-19 21:53] LABS: Blood Urea Nitrogen* 16 mg/dL (7-30); Calcium* 9.9 mg/dL (8.4-10.6); Carbon Dioxide* 27 mmol/L (20-32); Creatinine* 1.1 mg/dL (0.5-1.5); Estimated Glomerular Filt Rate 67 ml/min; Glucose* 125 mg/dL (60-115)
== END 2022-02-19 13:58 | disposition home or self-care (01) ==
LOC: KYNREF 13:58
PROVIDERS: PCP Nurse Practitioner Family; Visit Provider Nurse Practitioner Family
DX: R19.7 Diarrhea, unspecified (principal)
CPT/HCPCS: 36415; 80048

== ENCOUNTER 2022-02-27 07:55 | Outpatient (CLI) | payer MEDICARE, SELFPAY ==
--- OUTSIDE RECORDS SUMMARY | 2022-02-27 07:59 | XMS_ITS | Encounter Summary ---
:1939 Author Organization [facility] Address [address] [place] [address] Care Team Providers Name Role Phone Lexus Fowler M.D., M.P.H. Primary Care Provider [phone] Encounter Details Date Type Department Care Team Description 10/01/2021 Orders Only RST PCP HLTH MNT Shivani Fowler M.D., M.P.H. [address] [place], [place] [phone] (Wo rk) Social History [...] often do you attend roman catholic or mu-ism services? Patien t refused 10/29/2020 [...] on filedocumented in this encounter Care Teams Blade Operator Relationship Specialty Start Date End Date Lexus Fowler M.D., M.P.H. PCP - General 11/14/18 11/13/21 [address] [place] [address] documented as of this encounter
--- OUTSIDE RECORDS SUMMARY | 2022-02-27 07:59 | XMS_ITS | Encounter Summary ---
:1939 Author Organization [facility] Address [address] [place] [address] Care Team Providers Name Role Phone Eliezer RYAN D.O., Marco Monae Primary Care Provider Encounter Details Date Type Department Care Team Description 01/27/2022 Orders Only Department of Family aMrshal Martínez etes Mellitus Type Medicine, [facility] R, R.N. 2 With Diabetic Clinic [place], [place] [address] [place] [address] Neuropathy (HCC) [place], [place] (Primary Dx) [address] [facility] [address] [place] [address] [phone] Social History Tobacco Use Types Packs/Day Years [...] How often do you attend worship or bahai services? Patien t refused 10/29/2020 [...] Primary documented in this encounter Care Teams Automobile Mechanic Helper Relationship Specialty Start Date End Date Marco Martins IV, D.O. PCP - General 11/14/21 02/03/22 [address] [place] [address] documented as of this encounter
--- OUTSIDE RECORDS SUMMARY | 2022-02-27 07:59 | XMS_ITS | Encounter Summary ---
:1939 Author Organization [facility] Address [address] [place] [address] Care Team Providers Name Role Phone Lexus Fowler M.D., M.P.H. Primary Care Provider [phone] Reason for Visit Reason Comments Diabetes Hypertension Outpatient (Routine) - Closed Specialty Diagnoses / Procedures Referred By Contact Refer red To Contact Family Medicine Lexus Fowler M.D., [facility] M.P.H. 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 Patien t refused 10/29/2020 [...] in this encounter Care Teams Director Of Sustainability Relationship Specialty Start Date End Date Lexus Fowler M.D., M.P.H. PCP - General 11/14/18 11/13/[address] [place] [address] documented as of this encounter
--- OUTSIDE RECORDS SUMMARY | 2022-02-27 07:59 | XMS_ITS | Encounter Summary ---
:1939 Author Organization [facility] Address [address] [place] [address] Care Team Providers Name Role Phone Elsewhere, Pcp Primary Care Provider Unavailable Reason for Visit Reason Comments Follow-up DM/HTN Encounter Details Date Type Department Care Team Description 02/04/2022 Clinical Communication Department of Bhavya Martínez ow-up (DM/HTN) Family Medicine, Marshal Gardner R.N. [facility] [address] [facility] [address] [address] [facility] [phone] [place], [place] (Work) [phone] Social History Tobacco Use Types Packs/Day Years [...] How often do you attend sikhism or mandaeism services? Patien t refused 10/29/2020 [...] confirm that they transferred their care to [facility] that opened where the only [place] used to be. We will have us [...] on filedocumented in this encounter Care Teams Credit Union Field Examiner Relationship Specialty Start Date End Date Elsewhere, Pcp PCP - General Internal Medicine 02/04/22 documented as of this encounter
--- OUTSIDE RECORDS SUMMARY | 2022-02-27 07:59 | XMS_ITS | Encounter Summary ---
:1939 Author Organization [facility] Address [address] [place] [address] Care Team Providers Name Role Phone Lexus Fowler M.D., M.P.H. Primary Care Provider [phone] Reason for Visit Reason Comments Med Refill Encounter Details Date Type Department Care Team Description 07/15/2021 Refill Department of Med Gibson M .D., Med Refill Medicine, [facility] brandon Cameron M [facility] [address] [place] [address] [place] [address] [place] [address] [phone] Social History Tobacco Use Types Packs/Day Years [...] How often do you attend sikh or oriental orthodox services? Patien t refused [...] (HCC) documented in this encounter Care Teams Shiatsu Therapist Relationship Specialty Start Date End Date Lexus Fowler M.D., M.P.H. PCP - General 11/14/18 11/13/21 [address] [place] [address] documented as of this encounter
--- OUTSIDE RECORDS SUMMARY | 2022-02-27 07:59 | XMS_ITS | Clinical Summary ---
:1939 Author Organization [facility] Address [address] [place] [address] Care Team Providers Name Role Phone Elsewhere, Pcp Primary Care Provider Unavailable Source Comments Patient records contain information from all sites at [facility]. For routine questions regarding patient records, call [phone] during business hours, M-F 8:00 AM - 5:00 PM Central Time. Record requests for emergency care only can be directed to [phone] at any time.[facility] Allergies No known active allergies Medications Medication [...] test daily. 100 strip 3 08/19/2020 Active ([employer] Ultra Blue Test for testing, Strip) strips [...] at the end of his visit. Callus [place] Foot 10/13/2017 Dermatitis Seborrheic 03/02/2017 Keratosis Seborrheic [...] Type Specialty Care Team Description 02/18/2022 Refill Family Medicine Med Duffil eileen Viera M.D., J.D. 02/04/2022 Clinical Communication Family Medicine Marshal Martínez Follow-up (DM/HTN) R, R.N. 01/27/2022 Orders Only Family Medicine Marshal Martínez Diabetes Mellitus R, R.N. Type 2 With Anna betic Neuropathy (HCC ) (Primary Dx) from Last 3 Months Immunizations Name Administration [...] often do you attend roman catholic or anabaptist services? Patien t refused 10/29/2020 Do you belong to any clubs or organizations such as Nabil viera roman catholic groups, unions, fraternal or athletic [...] history exists Medical Devices Implanted Type Area General Road Supervisor Device Shelf Model / Identifier Expiration Serial / Date Lot J J Sig Tib Poly Stab #4 10.0m - Giordano [id number] Knee Implant Gonzalez son & Implanted: Qty: 1 on 12/19/2004 [employer] Description: Device General Road Supervisor - [employer]. Device Status Text - KNEE [id number]. J J Patella Rev Round 35m - Giordano [id number] Knee Implant Other/Le gacy - See Bob & Bob Implanted: Qty: 1 on 12/25/2013 Implant Description Services Inc Description: Device General Road Supervisor - [employer]. Body Location - Other. Right. Device Status Text - KNEE [id number]. Cement Bone Large - Giordano 2840 Misc Other [place] Implanted: Qty: 2 on 12/19/2004 Description: Device General Road Supervisor - Stryk er Jordon.. Device Status Text - [id number]. Cement Bone Large - Giordano 2840 Misc Other [place] Implanted: Qty: 2 on 12/25/2013 Description: Device General Road Supervisor - Stryk er Jordon.. Device Status Text - [id number]. Insurance Payer Benefit Plan / Subscriber ID Effective Dates Phone Addre ss Type Group AARP AAR MEDICARE [id number] 2020-Present [phone] [address] [address] [place] [address] Advance Directives For more information, please contact: [phone] Documents on File Type Date Recorded Patient Operations Officer Afloat Explanati on Advance Directives 12/12/2004 12:00 AM Legacy doc ument. See document viewer. Care Teams Convex Grinder Relationship Specialty Start Date End Date Elsewhere, Pcp PCP - General Internal Medicine 02/04/22
--- OUTSIDE RECORDS SUMMARY | 2022-02-27 07:59 | XMS_ITS | Encounter Summary ---
:[address] [facility] Address [address] [place] [address] Care Team Providers Name Role Phone Eliezer RYAN D.O., Fred P Primary Care Provider Reason for Visit Reason Comments Med Refill Encounter Details Date Type Department Care Team Description 11/19/2021 Refill Department of [facility] Med Duff M .D., Med Refill Medicine, [facility] brandon Cameron M [facility] [address] [place] [address] [address] [place] [address] [place] [address] [phone] Social History Tobacco Use Types Packs/Day Years [...] How often do you attend zoroastrian or nondenominational services? Patien t refused 10/29/2020 [...] Primary documented in this encounter Care Teams Reception Agent Relationship Specialty Start Date End Date Marco Martins IV, D.O. PCP - General 11/14/21 02/03/22 [address] [place] [address] documented as of this encounter
--- OUTSIDE RECORDS SUMMARY | 2022-02-27 07:59 | XMS_ITS | Encounter Summary ---
:1939 Author Organization [facility] Address [address] [place] [address] Care Team Providers Name Role Phone Elsewhere, Pcp Primary Care Provider Unavailable Reason for Visit Reason Comments Med Refill Encounter Details Date Type Department Care Team Description 02/18/2022 Refill Department of [facility] Med Duff M .D., Med Refill Medicine, [facility] brandon Cameron M [facility] [address] [place] [address] [address] [place] [address] [place] [address] [phone] Social History Tobacco Use Types Packs/Day Years [...] How often do you attend yazidi or mormon services? Patien t refused 10/29/2020 [...] patient does not receive primary care in [facility] and [facility]. Please reroute to the appropriate department. Thank you. documented in this encounter Plan of Treatment Not on filedocumented as of this encounter Visit Diagnoses Diagnosis Hyperlipidemia documented in this encounter Care Teams Heavy Mobile Equipment Operator Relationship Specialty Start Date End Date Elsewhere, Pcp PCP - General Internal Medicine 02/04/22 documented as of this encounter
--- OUTSIDE RECORDS SUMMARY | 2022-02-27 08:00 | XMS_ITS | Encounter Summary ---
:1939 Author Organization [facility] Address [address] [place] [address] Care Team Providers Name Role Phone Lexus Fowler M.D., M.P.H. Primary Care Provider [phone] Encounter Details Date Type Department Care Team Description 06/11/2020 Orders Only RST PCP HLTH SHADIT Javon Martins Jr., M.D. [address] [place] [address] [place] [phone] (Wo rk) Social History Tobacco [...] How often do you attend rastafari or bahai services? Patien t refused 10/29/2020 [...] on filedocumented in this encounter Care Teams Sizer Hand Relationship Specialty Start Date End Date Lexus Fowler M.D., M.P.H. PCP - General 11/14/18 11/13/21 [address] [place] [address] documented as of this encounter
--- OUTSIDE RECORDS SUMMARY | 2022-02-27 08:00 | XMS_ITS | Encounter Summary ---
:1939 Author Organization [facility] Address [address] [place] [address] Care Team Providers Name Role Phone Lexus Fowler M.D., M.P.H. Primary Care Provider [phone] Encounter Details Date Type Department Care Team Description 02/12/2020 Hospital Encounter Department of Lexus Fowler Diab etes Mellitus Laboratory Medicine Alonso Lassiter, M.P .H. Type 2 With in [address] Diabetic Neuropathy [place], [place] ([facility]) [address] [facility] [address] [place], [place] [phone] [address] (Work) [phone] Social History Tobacco Use Types Packs/Day Years [...] Neuropathy times a day. ([facility]) ONETOUCH ULTRA BLUE TEST daily. [...] Organization Address City/State/ZIP Code Phon e Number [facility] - 200 [place], [place] [address] [facility] [place] [address] 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 PCP - General 11/14/18 11/13/[address] [place] [address] documented as of this encounter
--- OUTSIDE RECORDS SUMMARY | 2022-02-27 08:00 | XMS_ITS | Encounter Summary ---
:1939 Author Organization [facility] Address [address] [place] [address] Care Team Providers Name Role Phone Lexus Fowler M.D., M.P.H. Primary Care Provider [phone] Reason for Referral Outpatient (Routine) - Closed Specialty Diagnoses / Procedures Referred By Contact Refer red To Contact Diagnoses Lesion Skin Face Keratosis Actinic Keratosis Seborrheic Lexus Fowler M.D., [facility] Procedures Lesion Destruction M.P.H. [address] [place] [address] Referral ID Status Reason Start Date Expiration Date Visits Requ ested Visits Authorized [id number] Closed 10/29/2020 10/29/2021 1 1 Reason for Visit Reason Comments Other skin spot Appointment Request (Routine) - Closed Specialty Diagnoses / Procedures Referred By Contact Refer red To Contact Family Medicine Referral ID Status Reason Start Date Expiration Date Visits Requ ested Visits Authorized [id number] Closed 09/11/2020 09/11/2021 1 1 Encounter Details Date Type Department Care Team Description 10/29/2020 Office Visit Department of Lexus Renee, Lesion Skin Face (Primary Dx); Medicine, Estiven Osborn M.D., M.P. H. Maintenance Health Adult; [place], in [address] [facility] Keratosis Actinic; [place], [place] Keratosis Seborrheic [address] [facility] [address] [place] [address] [phone] Social History Tobacco Use Types Packs/Day Years [...] How often do you attend yarsani or denominational services? Patien t refused 10/29/2020 [...] spends 5 months of theyear down in [place]. # DM II Is well controlled, on [...] Procedure Name Priority Date/Time Associated Comments Diagnosis [place] DEST PREMALIGNANT Routine 10/29/2020 10:01 Lesion Ski n Face Results for this LESN 2-14 AM CDT Keratosis Actini c procedure are in Keratosis the results Seborrheic section. [place] DEST PREMALIGNANT Routine 10/29/2020 10:01 Lesion Ski n Face Results for this LESN 2-14 AM CDT Keratosis Actini c procedure are in Keratosis the results Seborrheic section. [place] DEST PREMALIGNANT Routine 10/29/2020 10:01 Lesion Ski n Face Results for this LESN 1ST AM CDT Keratosis Actini c procedure are in Keratosis the results Seborrheic section. documented in this encounter Results [place] DEST PREMALIGNANT LESN 1ST, [place] DE[place] PREMALIGNANT LESN 2-14, [place] DE[place] PREMALIGNANT LESN 2-14 (10/29/2020 10:01 AM [...] Seborrheic documented in this encounter Care Teams Goods Layer Relationship Specialty Start Date End Date Lexus Fowler M.D., M.P.H. PCP - General 11/14/18 11/13/[address] [place] [address] documented as of this encounter
--- OUTSIDE RECORDS SUMMARY | 2022-02-27 08:00 | XMS_ITS | Encounter Summary ---
:1940 Author Organization [facility] Address [address] [place] [address] Care Team Providers Name Role Phone Lexus Fowler M.D., M.P.H. 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 Maintenance Health Adult in [address] [facility] [address] [place], [place] [phone] [address] (Work) [phone] Social History Tobacco Use Types Packs/Day Years [...] How often do you attend buddhist or druze services? Patien t refused 10/29/2020 [...] (two) With Diabetic Neuropathy times a day. ([facility]) ditloUCH ULTRA BLUE TEST daily. for 3 01/07/2018 [...] With Diabetic procedu re are in Neuropathy ([facility]) the results section. POTASSIUM, S/P Routine 02/14/2020 9:34 AM Diabetes Mellitus Re sults for this CDT Type 2 With Diabetic procedu re are in Neuropathy ([facility]) the results section. CREATININE WITH Routine 02/14/2020 9:34 AM Diabetes Mellitus R esults for this EGFR, S/P CDT Type 2 With Diabetic procedu re are in Neuropathy ([facility]) the results section. documented in this encounter [...] Address City/State/ZIP Code Phon e Number [facility] - [address] [place], [place] [address] [facility] [place] [address] Laboratories-[facility] [address] Sodium (02/14/2020 9:34 AM [...] Organization Address City/State/ZIP Code Phon e Number [facility] [address] [place] [address] [place] [address] 411 [facility] Potassium (02/14/2020 9:34 AM CDT) athologist Signature Potassium, P 4.3 3.6 - 5.2 02/14/2020 [facility] mmol/L 10:38 AM CDT Specimen Anatomical Collection Method Collection Time Receive d Time (Source) Location / / Volume Laterality Blood (Blood, 02/14/2020 9:34 AM 02/14/20 20 9:34 Venous) CDT AM CDT Lexus Fowler M.D., M.P.H. LAB BLOOD ADD-ON Performing Organization Address City/[facility]/ZIP Code Phon e Number [facility] [address] [place] [address] (ABNORMAL) Creatinine with Estimated GFR (02/14/2020 9:34 AM CDT) athologist Signature Creatinine 1.26 0.74 - 02/14/2020 [facility] 1.35 mg/dL 10:38 AM CDT eGFR-Black/Afric 62 >=60 02/14/2020 [facility] an Malian mL/min/BSA 10:38 AM CDT Comment: ----ADDITIONAL INFORMATION---- Estimated GFR calculated using the 2009 CKD_EPI creatinine equation. eGFR Non-Black/ 54 (L) >=60 mL/min/BSA 02/14/2020 10:38 AM CDT [facility] [place] Comment: ----ADDITIONAL INFORMATION---- Estimated GFR calculated using the 2009 CKD_EPI creatinine equation. Specimen Anatomical Collection Method Collection Time Receive d Time (Source) Location / / Volume Laterality Blood (Blood, 02/14/2020 9:34 AM 02/14/20 20 9:34 Venous) CDT AM CDT Lexus Fowler M.D., M.P.H. 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 PCP - General 11/14/18 11/13/21 [address] [place] [address] documented as of this encounter
--- OUTSIDE RECORDS SUMMARY | 2022-02-27 08:00 | XMS_ITS | Encounter Summary ---
:1940 Author Organization [facility] Address [address] [place] [address] Care Team Providers Name Role Phone Lexus Fowler M.D., M.P.H. Primary Care Provider [phone] Reason for Visit Reason Comments COVID Inquiry Encounter Details Date Type Department Care Team Description 09/11/2020 Clinical Communication Department of Lexus Fowler Family MedicineMaikol M.D., M.P.H. [facility] [address] [facility] [address] 411 [facility] [phone] [place], [place] (Work) [address] [phone] Social History Tobacco Use Types Packs/Day Years [...] How often do you attend judaism or methodist services? Patien t refused 10/29/2020 [...] appointment being requested?: More than 14 days Mio- follow local process (End Screening) Testing Recommendation Endpoint Is testing recommended? : Not recommended to test Plan: Endpoint recommendation: Followed regional OTG *Reminder if sending patient for testing in [facility] or [facility], route encounter to the correct testing pool. documented in this encounter Plan of Treatment Not on filedocumented as of this encounter Visit Diagnoses Not on filedocumented in this encounter Care Teams Frit Maker Relationship Specialty Start Date End Date Lexus Fowler M.D., M.P.H. PCP - General 11/14/18 11/13/21 [address] [place] [address] documented as of this encounter
--- OUTSIDE RECORDS SUMMARY | 2022-02-27 08:00 | XMS_ITS | Encounter Summary ---
:1940 Author Organization [facility] Address [address] [place] [address] Care Team Providers Name Role Phone Lexus Fowler M.D., M.P.H. Primary Care Provider [phone] Encounter Details Date Type Department Care Team [...] How often do you attend protestant or judaism services? Patien t refused 10/29/2020 [...] on filedocumented in this encounter Care Teams Collision Mechanic Relationship Specialty Start Date End Date Lexus Fowler M.D., M.P.H. PCP - General 11/14/18 11/13/21 [address] [place] [address] documented as of this encounter
--- OUTSIDE RECORDS SUMMARY | 2022-02-27 08:00 | XMS_ITS | Encounter Summary ---
:1940 Author Organization [facility] Address [address] [place] [address] Care Team Providers Name Role Phone Lexus Fowler M.D., M.P.H. Primary Care Provider [phone] Encounter Details Date Type Department Care Team Description 01/22/2021 Orders Only Department of Family Lexus Fowler, Hyponatremia (Primary Medicine, [facility] Alonso, M.P. H. Dx) [facility] [address] [place] [address] 411 [address] [facility] [address] [place] [address] [phone] Social History Tobacco Use Types Packs/Day Years [...] How often do you attend adventist or temple services? Patien t refused 10/29/2020 Do you belong to any clubs or organizations such as Not aske d adventist groups, unions, fraternal or athletic groups, [...] or slept in a detention (including now)? Education Answer Date Recorded What is the highest level of school you have completed or 12 th grade 10/29/2020 the highest degree you have received? Sex Assigned at Date Recorded Not on file documented as of this encounter Plan of Treatment Not on filedocumented as of this encounter Visit Diagnoses Diagnosis Hyponatremia - Primary documented in this encounter Care Teams Sock Folder Relationship Specialty Start Date End Date Lexus Fowler M.D., M.P.H. PCP - General 11/14/18 11/13/21 [address] [place] [address] documented as of this encounter
--- OUTSIDE RECORDS SUMMARY | 2022-02-27 08:00 | XMS_ITS | Encounter Summary ---
:1939 Author Organization [facility] Address [address] [place] [address] Care Team Providers Name Role Phone Lexus [...] How often do you attend congregational or rastafarian services? Patien t refused 10/29/2020 [...] on filedocumented in this encounter Care Teams Medical Data Entry Clerk Relationship Specialty Start Date End Date Lexus Fowler M.D., M.P.H. PCP - General 11/14/18 11/13/21 [address] [place] [address] documented as of this encounter
--- OUTSIDE RECORDS SUMMARY | 2022-02-27 08:00 | XMS_ITS | Encounter Summary ---
:1940 Author Organization [facility] Address [address] [place] [address] Care Team Providers Name Role Phone Lexus Fowler M.D., M.P.H. Primary Care Provider Reason for Visit Outpatient (Routine) - Closed Specialty Diagnoses / Procedures Referred By Contact Refer red To Contact Vascular Medicine Sherry Slater APRN, [facility] C.N.PClarence, M.S.N. 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 Patien t refused 10/29/2020 [...] through 14 - You may wear shoes robotic weld technician in your house only. Beyond day 14 - If no problems have developed, you may begin wearing them outside the house. If you have any wound care questions or concerns please contact the Vascular Center at [phone]. If you need to cancel, reschedule, or schedule a wound care appointment please call [phone]. Provider Signature Emelyn Diamond APRN, C.N.P., Maximiliano.N.P. [...] he was seen at a clinic in [place] for an infected right great toe callus [...] Of note, he will be leaving for [place] onMarch 11, 2020. The return in early [...] 2 With Diabetic Neuropathy (HCC) #3 [facility] I discussed my assessment findings and [...] wear shoes. They will be leaving for [place] later this month. He will be gone until late July of 2020. He was encouraged to find a wound care provider while in [place]. He would benefit from monthly debridement.Upon return, [...] encounter for detailsregarding wound care instructions. Emelyn Daimond APRN, C.N.P., D.N.P. INFORMED CONSENT: Discussed the [...] 2 With Diabetic N europathy (HCC) [facility] documented in this encounter Care Teams Multiple Drill Operator Relationship Specialty Start Date End Date Lexus Fowler M.D., M.P.H. PCP - General 11/14/18 11/13/21 [address] [place] [address] documented as of this encounter
--- OUTSIDE RECORDS SUMMARY | 2022-02-27 08:00 | XMS_ITS | Encounter Summary ---
:1940 Author Organization [facility] Address [address] [place] [address] Care Team Providers Name Role Phone Lexus Fowler M.D., M.P.H. Primary Care Provider Encounter Details Date Type Department Care Team Description 02/14/2020 Hospital Encounter Department of Lexus Fowler Diab etes Mellitus Laboratory Medicine Alonso Lassiter, M.P .H. Type [address] Diabetic Neuropathy [place], [place] ([facility]) [address] [facility] [address] [place], [place] [phone] [address] (Work) [phone] Social History Tobacco Use Types Packs/Day Years [...] How often do you attend judaism or oriental orthodox services? Patien t refused [...] times a day. ([facility]) StarMobileUCH ULTRA BLUE TEST daily. for 3 01/07/2018 [...] Its performance characteri stics were determined by [facility] in a manner co nsistent with CLIA [...] Organization Address City/State/ZIP Code Phon e Number [facility] - [address] [place], [place] [address] 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 PCP - General 11/14/18 11/13/21 [address] [place] [address] documented as of this encounter
--- OUTSIDE RECORDS SUMMARY | 2022-02-27 08:00 | XMS_ITS | Encounter Summary ---
:1940 Author Organization [facility] Address [address] [place] [address] Care Team Providers Name Role Phone Lexus Fowler M.D., M.P.H. Primary Care Provider [phone] Encounter Details Date Type Department Care Team Description 01/01/2021 Orders Only Department of Family Lexus Fowler, [facility] Health Medicine, [facility] Alonso, M.P. H. Adult (Primary Dx) Clinic [place], in [address] [place] [address] [address] [facility] [address] [place] [address] [phone] Social History Tobacco Use Types Packs/Day Years [...] How often do you attend gnosticist or bahai services? Patien t refused 10/29/2020 [...] 8:04 AM CDT) athologist Signature Vitamin B12 802 054 - 168 01/22/2021 DTL Assay, S ng/L 7:23 AM [...] City/State/ZIP Code Phon e Number [facility] - [address] [place], [place] [address] [facility] [place] [address] Laboratories-[facility] [address] documented in this encounter Visit Diagnoses Diagnosis Maintenance Health Adult - Primary documented in this encounter Care Teams Mold Repairer Relationship Specialty Start Date End Date Lexus Fowler M.D., M.P.H. PCP - General 11/14/18 11/13/[address] [place] [address] documented as of this encounter
--- OUTSIDE RECORDS SUMMARY | 2022-02-27 08:00 | XMS_ITS | Encounter Summary ---
:1939 Author Organization [facility] Address [address] [place] [address] Care Team Providers Name Role Phone Lexus Fowler M.D., M.P.H. Primary Care Provider [phone] Encounter Details Date Type Department Care Team Description 08/15/2020 Hospital Encounter Department of Lexus Fowler Diab etes Mellitus Laboratory Medicine Alonso Lassiter, M.P .H. Type [address] Diabetic Neuropathy [place], [place] ([facility]) [address] [facility] [address] [place], [place] [phone] [address] (Work) [phone] Social History Tobacco Use Types Packs/Day Years [...] How often do you attend baptism or scientologist services? Patien t refused 10/29/2020 Do you belong to any clubs or organizations such as Not aske d baptism groups, unions, fraternal or athletic groups, [...] (two) With Diabetic Neuropathy times a day. ([facility]) ONETOUCH ULTRA BLUE TEST daily. [...] [facility] - [address] [place] [address] 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 PCP - General 11/14/18 11/13/21 [address] [place] [address] documented as of this encounter
--- OUTSIDE RECORDS SUMMARY | 2022-02-27 08:00 | XMS_ITS | Encounter Summary ---
:1940 Author Organization [facility] Address [address] [place] [address] Care Team Providers Name Role Phone Lexus Fowler M.D., M.P.H. Primary Care Provider [phone] Reason for Visit Reason Comments Med Refill Encounter Details Date Type Department Care Team Description 08/19/2020 Refill Department of [facility] Lexus Fowler M.D., Med Refill Medicine, [facility] M.P .H. brandon Hernandez [facility] [address] [facility] [address] [place] [address] [place] [address] [phone] Social History Tobacco Use Types Packs/Day Years [...] How often do you attend confucianist or orthodox services? Patien t refused 10/29/2020 [...] on filedocumented in this encounter Care Teams Lead Web Application Developer Relationship Specialty Start Date End Date Lexus Fowler M.D., M.P.H. PCP - General 11/14/18 11/13/21 [address] [place] [address] documented as of this encounter
--- OUTSIDE RECORDS SUMMARY | 2022-02-27 08:00 | XMS_ITS | Encounter Summary ---
:1940 Author Organization [facility] Address [address] [place] [address] Care Team Providers Name Role Phone Lexus Fowler M.D., M.P.H. 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 Maintenance Health Adult in [address] [facility] [address] [place], [place] [phone] [address] (Work) [phone] Social History Tobacco Use Types Packs/Day Years [...] How often do you attend zoroastrian or restorationism services? Patien t refused 10/29/2020 [...] and as covered by insurance blood-glucose meter [employer] 1 each daily. 1 each 0 08/20/19 [...] ADD-ON Performing Organization Address City/[facility]/ZIP Code Phon e Number [facility] - [address] [place], [place] [address] [facility] [place] [address] Laboratories-[facility] 200 [...] Organization Address City/State/ZIP Code Phon e Number [facility] - 200 [place], [place] [address] [facility] [place], [place] [address] [place] [address] (ABNORMAL) Sodium (01/21/2021 8:04 AM CDT) athologist Signature Sodium, P 133 (L) 135 - 145 01/21/2021 DTL mmol/L 1:25 PM CDT Specimen Anatomical Collection Method Collection Time Receive d Time (Source) Location / / Volume Laterality Blood (Blood, 01/21/2021 8:04 AM 01/22/20 8:04 Venous) CDT AM CDT Lexus Fowler M.D., M.P.H. LAB BLOOD ADD-ON Performing Organization Address City/[facility] Phon e Number [facility] - 200 [place], [place] [address] [facility] [place], [place] [address] [place] [address] Potassium (01/21/2021 8:04 AM CDT) athologist Signature Potassium, P 4.9 3.6 - 5.2 01/21/2021 DTL mmol/L 1:25 PM CDT Specimen Anatomical Collection Method Collection Time Receive d Time (Source) Location / / Volume Laterality Blood (Blood, 01/21/2021 8:04 AM 01/22/20 8:04 Venous) CDT AM CDT Lexus Fowler M.D., M.P.H. LAB BLOOD ADD-ON Performing Organization Address City/State/[facility] Code Phon e Number [facility] - 200 [place], [place] [address] [facility] [address] Creatinine with Estimated GFR (01/21/2021 8:04 AM CDT) athologist Signature Creatinine 1.13 0.74 - 01/21/2021 DTL 1.35 mg/dL 1:25 PM CDT eGFR-Black/Afric 70 >=60 01/21/2021 DTL an [place] mL/min/BSA 1:25 PM CDT Comment: ----ADDITIONAL INFORMATION---- [...] Organization Address City/State/ZIP Code Phon e Number [facility] - [address] [place] [address] [facility] [place] [address] Laboratories-[address] documented in this encounter Visit Diagnoses Diagnosis Diabetes Mellitus Type 2 With Diabetic N europathy ([facility]) Maintenance Health Adult documented in this encounter Care Teams Senior Administrative Services Officer Relationship Specialty Start Date End Date Lexus Fowler M.D., M.P.H. PCP - General 11/14/18 11/13/21 [address] [place] [address] documented as of this encounter
--- OUTSIDE RECORDS SUMMARY | 2022-02-27 08:00 | XMS_ITS | Encounter Summary ---
:1940 Author Organization [facility] Address [address] [place] [address] Care Team Providers Name Role Phone Lexus Fowler M.D., M.P.H. Primary Care Provider Reason for Referral Outpatient (Routine) - Closed Specialty Diagnoses / Procedures Referred By Contact Refer red To Contact Family Lexus Grace M.D., Jesus Owusu M.P.H. [address] [place] [phone] Referral ID Status Reason Start Date Expiration Date Visits Requ ested Visits Authorized [id number] Closed 08/16/2020 08/16/2021 1 1 Reason for Visit Reason Comments Diabetes Outpatient (Routine) - Closed Specialty Diagnoses / Procedures Referred By Contact Refer red To Contact Family Lexus Grace M.D., Jesus Owusu M.P.H. 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 Hypertension Essential Primary; Family Clinic [address] Diabetes Mellitus 2 Ulcer Toe (HCC); [facility] [phone] [address] [facility] SHADI HERNANDEZ [address] Social History Tobacco [...] How often do you attend voodoo or confucianist services? Patien t refused 10/29/2020 [...] to follow-up with podiatry at in the [facility], his appointment is on 08/20. He [...] auscultation bilaterally, no wheezing, crackles, rales Skin: [place] and well perfused Extremities: Dorsalis pedis pulses [...] 5 mg daily, losartan 100 mg daily, eivsbuehonuycogsocz43 mg daily. No changes necessary at this time. 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 I appreciate their cares. #4 Maintenance Health Adult Other orders - Family Medicine office visit (clinic) - Family Medicine office visit (clinic); Future; Expected date: 02/15/2021 - Senchauch Ultra Blue Test Strip strips; 1 test daily. for testing, Starting Wed08/16/2020, Normal documented in this encounter Miscellaneous Notes Assessment & Plan Note - Lexus Fowler M.D., M.P.H. - 08/16/2020 1:28 PM CDTAssociated Problem(s): Hypertension Essential Primary Well managed on current regimen of amlodipine 5 mg daily, losartan 100 mg daily, zslrfcqolbbizazagbr75 mg daily. No changes necessary at this [...] Name Type Priority Associated Diagnoses Order S [facility] Medicine Outpatient Referral Routine Expec margoth: office visit 02/15/2021 (clinic) (Approximate), Expires: 08/17/2023 documented as of this encounter Results Albumin, Random, Urine (01/21/2021 8:33 AM CDT) athologist Signature Albumin, 8.1 mg/L 01/22/2021 DTL Random, U 9:50 AM CDT Comment: ----ADDITIONAL INFORMATION---- This test has been modified from the valentin hurtado's instructions. Its performance characteri stics were determined by [facility] in a manner co nsistent with [...] City/State/ZIP Code Phon e Number [facility] - [address] [place], [place] [address] [facility] [place] [address] Laboratories-[facility] [address] (ABNORMAL) Hemoglobin A1c [...] Address City/State/ZIP Code Phon e Number [facility] [address] [place] [address] (ABNORMAL) Sodium (01/21/2021 8:04 AM CDT) P athologist Signature Sodium, P 133 (L) 135 - 145 01/21/2021 DTL mmol/L 1:25 PM CDT Specimen Anatomical Collection Method Collection Time Receive d Time (Source) Location / / Volume Laterality Blood (Blood, 01/21/2021 8:04 AM 01/22/20 8:04 Venous) CDT AM CDT Lexus Fowler M.D., M.P.H. LAB BLOOD ADD-ON Performing Organization Address City/[facility]/ZIP Code Phon e Number [facility] [address] [place] [address] [place] [address] Potassium (01/21/2021 8:04 AM CDT) P [...] City/State/ZIP Code Phon e Number [facility] - 200 [place] [address] [facility] [place] [address] Laboratories-[address] Creatinine with Estimated GFR (01/21/2021 8:04 AM CDT) P athologist Signature Creatinine 1.13 0.74 - 01/21/2021 DTL 1.35 mg/dL 1:25 PM CDT eGFR-Black/Afric 70 >=60 01/21/2021 DTL an Palau[place] mL/min/BSA 1:25 PM CDT Comment: ----ADDITIONAL INFORMATION---- [...] City/State/ZIP Code Phon e Number [facility] - [address] [address] [facility]-[address] documented in this encounter Visit Diagnoses Diagnosis Diabetes Mellitus Type 2 With Diabetic N europathy (HCC) - Primary Hypertension Essential Primary Diabetes Mellitus 2 Ulcer Toe (HCC) Maintenance Health Adult documented in this encounter Care Teams Copywriting Intern Relationship Specialty Start Date End Date Lexus Fowler M.D., M.P.H. PCP - General 11/14/18 11/13/21 [address] [place] [address] documented as of this encounter
--- OUTSIDE RECORDS SUMMARY | 2022-02-27 08:00 | XMS_ITS | Encounter Summary ---
:1940 Author Organization [facility] Address [address] [place] [address] Care Team Providers Name Role Phone Lexus Fowler M.D., M.P.H. 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 [address] [place] [address] Referral ID Status Reason Start Date Expiration Date Visits Requ ested Visits Authorized [id number] Closed 01/08/2020 01/07/2021 1 1 Encounter Details Date Type Department Care Team Description 03/06/2020 Procedure visit Department of Belkis Richter Onychomy cosis (Primary Dx); Orthopedic Surgery A, ALEN, C.N.P. Callus Rushmore Foot; in [place], Dystrophic Toe nail; [place] Diabetes Mellitus Type 2 Wit h Diabetic Polyneuropathy (HCC); [address] [place] [address] Diabetes Mellitus 2 Ulcer To e (HCC); [place], [place] Deformity Cavu s Foot Acquired Right [phone] Social History Tobacco Use Types Packs/Day Years [...] How often do you attend mosque or latter day services? Patien t refused 10/29/2020 Do you belong to any clubs or organizations such as Nabil borrero mosque groups, [employer], [employer]ordic [employer] Collective or athletic groups, or school groups? How [...] time o utdoors. He last saw Dr. eLxus Fowler and Dr. Raul Dunlap ([facility]) February 14, 2020 for activecare management. [...] is also preparing for his trip to [place]. There is no sign of infection. The [...] week in August upon his return from [place]. 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 PCP - General 11/14/18 11/13/21 [address] [place] [address] documented as of this encounter
--- OUTSIDE RECORDS SUMMARY | 2022-02-27 08:00 | XMS_ITS | Encounter Summary ---
:1940 Author Organization [facility] Address [address] [place] [address] Care Team Providers Name Role Phone Lexus Fowler M.D., M.P.H. Primary Care Provider [phone] Reason for Visit Reason Comments Med Refill Encounter Details Date Type Department Care Team Description 08/19/2020 Refill Department of Family Medicine, Marshal Mccoy, RClarenceNClarence Med Refill [facility], co [address] [place] [address] [address] [facility] [place] [address] Social History Tobacco Use Types Packs/Day Years [...] How often do you attend spiritism or faith services? Patien t refused 10/29/2020 [...] on filedocumented in this encounter Care Teams Pipe Wrapping Machine Operator Relationship Specialty Start Date End Date Lexus Fowler M.D., M.P.H. PCP - General 11/14/18 11/13/21 [address] [place] [address] documented as of this encounter
--- OUTSIDE RECORDS SUMMARY | 2022-02-27 08:00 | XMS_ITS | Encounter Summary ---
:1940 Author Organization [facility] Address [address] [place] [address] Care Team Providers Name Role Phone Lexus Fowler M.D., M.P.H. Primary Care Provider Reason for Referral Outpatient (Routine) - Closed Specialty Diagnoses / Procedures Referred By Contact Refer red To Contact Diagnoses Cyst Sebaceous Inflamed Med Duff M.D., [facility] Procedures Incision and Drainage J.D. [address] [place] [phone] Referral ID Status Reason Start Date Expiration Date Visits Requ ested Visits Authorized [id number] Closed 01/18/2020 01/17/2021 1 1 Reason for Visit Reason Comments Other boils Appointment Request (Routine) - Closed Specialty Diagnoses / Procedures Referred By Contact Refer red To Contact Community [facility] Referral ID Status Reason Start Date Expiration Date Visits Requ ested Visits Authorized [id number] Closed 01/17/2020 01/16/2021 1 1 Encounter Details Date Type Department Care Team Description 01/18/2020 Office Visit Department of Med [facility] Sebaceous Medicine, [facility] Evie Gupta Inflamed (Primary Dx) [facility], ct [address] [place], [place] [address] [facility] [address] [place] [address] [phone] Social History Tobacco Use Types Packs/Day Years [...] How often do you attend advent or hinduism services? Patien t refused 10/29/2020 Do you belong to any clubs or organizations such as Nabli borrero advent groups, unions, fraternal or athletic [...] dose documented in this encounter Care Teams Neurology Director Relationship Specialty Start Date End Date Lexus Fowler M.D., M.P.H. PCP - General 11/14/18 11/13/21 [address] [place] [address] documented as of this encounter
--- OUTSIDE RECORDS SUMMARY | 2022-02-27 08:00 | XMS_ITS | Encounter Summary ---
:1940 Author Organization [facility] Address [address] [place] [address] Care Team Providers Name Role Phone Lexus Fowler M.D., M.P.H. Primary Care Provider Encounter Details Date Type Department Care Team Description 01/17/2020 Nurse Triage Department of [facility] Shaina Barr, Medicine, [facility], [facility] [address] [place] [address] [address] [place] [address] Social History Tobacco Use Types Packs/Day Years [...] How often do you attend orthodox or jewish services? Patien t refused 10/29/2020 [...] on filedocumented in this encounter Care Teams Gymnasium Teacher Relationship Specialty Start Date End Date Lexus Fowler M.D., M.P.H. PCP - General 11/14/18 11/13/21 [address] [place] [address] documented as of this encounter
--- OUTSIDE RECORDS SUMMARY | 2022-02-27 08:00 | XMS_ITS | Encounter Summary ---
:[address] [facility] Address [address] [place] [address] Care Team Providers Name Role Phone Lexus Fowler M.D., M.P.H. Primary Care Provider [phone] Reason for Visit Reason Comments Pre-visit Testing Orders Encounter Details Date Type Department Care Team Description 01/01/2021 Clinical Department of Lexus Fowler Pre-visit Testing Communication Family MedicineMaikol M.D., M.P.H. Orders [facility] [address] [facility] [address] [address] [facility] [phone] [place], [place] (Work) [phone] Social History Tobacco Use Types Packs/Day Years [...] How often do you attend episcopalian or adventist services? Patien t refused 10/29/2020 [...] 2:30 PM CDT Caller: pt Callback Number: [phone] Best communication method: call Pharmacy: Request/Details: Pt has labs on 01-21 He is asking for a B-12 labs to be added to that appt. Thanks! Please respond to [facility] Scheduling pool if necessary documented in this encounter Plan of Treatment Not on filedocumented as of this encounter Visit Diagnoses Not on filedocumented in this encounter Care Teams Broadcast Maintenance Technician Relationship Specialty Start Date End Date Lexus Fowler M.D., M.P.H. PCP - General 11/14/18 11/13/21 [address] [place] [address] documented as of this encounter
--- OUTSIDE RECORDS SUMMARY | 2022-02-27 08:00 | XMS_ITS | Encounter Summary ---
:1940 Author Organization [facility] Address [address] [place] [address] Care Team Providers Name Role Phone Lexus Fowler M.D., M.P.H. Primary Care Provider [phone] Reason for Visit Outpatient (Routine) - Closed Specialty Diagnoses / Procedures Referred By Contact Refer red To Contact Vascular Medicine Sherry Slater APRN, [facility] C.N.P., M.S.N. [address] [place] [phone] Referral ID Status Reason Start Date Expiration Date Visits Requ ested Visits Authorized [id number] Closed 01/15/2020 01/14/2021 1 1 Encounter Details Date Type Department Care Team Description 02/06/2020 Nurse Only Department of Vascular Sherry Slater APRN, C.N.P., M.S.N. [address] [place] [phone] Medicine in [place], Melissa Chatterjee R.N. [address] [place] [phone] [phone] Social History Tobacco Use [...] How often do you attend adventism or mandaen services? Patien t refused 10/29/2020 [...] through 14 - You may wear shoes realtime captioner in your house only. Beyond day 14 - If no problems have developed, you may begin wearing them outside the house. If you have any wound care questions or concerns please contact the Vascular Center at [phone]. If you need to cancel, reschedule, or schedule a wound care appointment please call [phone]. Provider Signature Melissa Chatterjee R.N. documented in this encounter Progress Notes Melissa Chatterjee R.N. - 02/06/2020 9:00 AM CDT CHIEF COMPLAINT/REASON FOR VISIT: RN to assess and debride. Vinayak Vazquez was seen at the [facility] wound care center.. REFERRAL: Sherry Slater [...] (HCC) documented in this encounter Care Teams P D Driver Relationship Specialty Start Date End Date Lexus Fowler M.D., M.P.H. PCP - General 11/14/18 11/13/21 [address] [place] [address] documented as of this encounter
--- OUTSIDE RECORDS SUMMARY | 2022-02-27 08:00 | XMS_ITS | Encounter Summary ---
:[address] [facility] Address [address] [place] [address] Care Team Providers Name Role Phone Lexus Fowler M.D., M.P.H. Primary Care Provider [phone] Encounter Details Date Type Department Care Team Description 01/21/2021 Hospital Encounter Department of Lexus Fowler Diab etes Mellitus Laboratory Medicine Alonso Lassiter, M.P .H. Type 2 [address] Diabetic Neuropathy [place], [place] ([facility]) [address] [facility] [address] [place], [place] [phone] [address] (Work) [phone] Social History Tobacco Use Types Packs/Day Years [...] How often do you attend jain or alevism services? Patien t refused 10/29/2020 Do you belong to any clubs or organizations such as Not aske d jain groups, unions, fraternal or athletic groups, [...] and as covered by insurance blood-glucose meter [facility] 1 each daily. 1 [...] Neuropathy times a day with ([facility]) meals. rosuvastatin (CRESTOR) 10 Take 1 [...] performance characteri stics were determined by [facility] in a manner co nsistent with CLIA [...] City/State/ZIP Code Phon e Number [facility] - [address] [place] [address] [facility] [place] [address] [facility] 200 [facility] documented in this encounter Visit Diagnoses Diagnosis Diabetes Mellitus Type 2 With Diabetic N europathy (HCC) documented in this encounter Care Teams Planning Engineer Relationship Specialty Start Date End Date Lexus Fowler M.D., M.P.H. PCP - General 11/14/18 11/13/[address] [place] [address] documented as of this encounter
--- OUTSIDE RECORDS SUMMARY | 2022-02-27 08:00 | XMS_ITS | Encounter Summary ---
:1940 Author Organization [facility] Address [address] [place] [address] Care Team Providers Name Role Phone Lexus Fowler M.D., M.P.H. Primary Care Provider [phone] Encounter Details Date Type Department Care Team [...] How often do you attend uatsdin or zoroastrianism services? Patien t refused 10/29/2020 [...] on filedocumented in this encounter Care Teams Bottom Hoop Driver Relationship Specialty Start Date End Date Lexus Fowler M.D., M.P.H. PCP - General 11/14/18 11/13/21 [address] [place] [address] documented as of this encounter
--- OUTSIDE RECORDS SUMMARY | 2022-02-27 08:00 | XMS_ITS | Encounter Summary ---
:1940 Author Organization [facility] Address [address] [place] [address] Care Team Providers Name Role Phone Lexus Fowler M.D., M.P.H. Primary Care Provider [phone] Reason for Referral Outpatient (Routine) - Closed Specialty Diagnoses / Procedures Referred By Contact Refer red To Contact Family Lexus Grace M.D., Jesus Owusu M.P.H. [address] [place] [phone] Referral ID Status Reason Start Date Expiration Date Visits Requ ested Visits Authorized [id number] Closed 02/14/2020 02/13/2021 1 1 Reason for Visit Reason Comments Diabetes and hypertension Outpatient (Routine) - Closed Specialty Diagnoses / Procedures Referred By Contact Refer red To Contact Family Lexus Grace M.D., Jesus Owusu M.P.H. [address] [place] [phone] Referral ID Status Reason Start Date Expiration Date Visits Requ ested Visits Authorized [id number] Closed 09/28/2019 09/27/2020 1 1 Encounter Details Date Type Department Care Team Description 02/14/2020 Office Visit Department of [facility] Lexus Fowler 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, M.P.H. Diabetes Mellitus Type 2 (HCC); Family Clinic [address] [facility] Adult; brandon Hernandez [place], [place] Hyperten brook Essential Primary; [place] [address] Hyperlipidemia [address] [facility] [phone] SHADI HERNANDEZ (Work) [phone] Social History Tobacco Use Types Packs/Day Years [...] auscultation bilaterally, no wheezing, crackles, rales Skin: [place] and well perfused ASSESSMENT / PLAN #1 [...] Expected date: 08/13/2020 (Before next visit) #3 [facility] Adult - Lipid Panel; Future; Expected [...] Priority Associated Diagnoses Order S [facility] Medicine Outpatient Referral Routine Expec margoth: office [...] Address City/State/ZIP Code Phon e Number [facility] - [address] [place], [place] [address] [facility] [place] [address] Laboratories-[facility] [address] Albumin, Random, Urine (02/14/2020 9:44 AM CDT) athologist Signature Albumin, 9.8 mg/L 02/14/2020 DTL Random, U 3:19 PM CDT Comment: ----ADDITIONAL INFORMATION---- This test has been modified from the man ufacturer's instructions. Its performance characteri stics were determined by [facility] in a manner co nsistent with [...] Address City/State/ZIP Code Phon e Number [facility] - 200 [place], [place] [address] [facility] [place] [place] [address] [place] [address] Lipid Panel (02/14/2020 9:34 AM CDT) [...] M.P.H. LAB BLOOD ADD-ON Performing Organization Address City/[facility]/ZIP Code Phon e Number [facility] - 200 [place], [place] [address] [facility] [place] [address] [facility] 200 [facility] Sodium (02/14/2020 9:34 AM CDT) P athologist Signature Sodium, P 136 135 - 145 02/14/2020 [facility] mmol/L 10:38 AM CDT Specimen Anatomical Collection Method Collection Time Receive d Time (Source) Location / / Volume Laterality Blood (Blood, 02/14/2020 9:34 AM 02/14/20 20 9:34 Venous) CDT AM CDT Lexus Fowler M.D., M.P.H. LAB BLOOD ADD-ON Performing Organization Address City/State/ZIP Code Phon e Number [facility] [address] [place] [address] [place] [address] [address] [facility] Potassium (02/14/2020 9:34 AM CDT) P athologist Signature Potassium, P 4.3 3.6 - 5.2 02/14/2020 [facility] mmol/L 10:38 AM CDT Specimen Anatomical Collection Method Collection Time Receive d Time (Source) Location / / Volume Laterality Blood (Blood, 02/14/2020 9:34 AM 02/14/20 20 9:34 Venous) CDT AM CDT Lexus Fowler M.D., M.P.H. LAB BLOOD ADD-ON Performing Organization Address City/[facility]/ZIP Code Phon e Number [address] [address] [facility], [place] [phone] [place] [address] (ABNORMAL) Creatinine with Estimated GFR (02/14/2020 9:34 AM CDT) P athologist Signature Creatinine 1.26 0.74 - 02/14/2020 [facility] 1.35 mg/dL 10:38 AM CDT eGFR-Black/Afric 62 >=60 02/14/2020 [facility] an British mL/min/BSA 10:38 AM CDT Comment: ----ADDITIONAL INFORMATION---- Estimated GFR calculated using the 2009 CKD_EPI creatinine equation. eGFR Non-Black/ 54 (L) >=60 mL/min/BSA 02/14/2020 10:38 AM CDT [facility] British Comment: ----ADDITIONAL INFORMATION---- Estimated GFR calculated using the 2009 CKD_EPI creatinine equation. Specimen Anatomical Collection Method Collection Time Receive d Time (Source) Location / / Volume Laterality Blood (Blood, 02/14/2020 9:34 AM 02/14/20 20 9:34 Venous) CDT AM CDT Lexus Fowler M.D., M.P.H. LAB BLOOD ADD-ON Performing Organization Address City/[facility]/ZIP Code Phon e Number [address] [address] [facility], [place] [phone] [place] [address] documented in this encounter Visit Diagnoses Diagnosis Diabetes Mellitus Type 2 With Diabetic N europathy (HCC) - Primary Diabetes Mellitus Type 2 (HCC) Maintenance Health Adult Hypertension Essential Primary Hyperlipidemia documented in this encounter Care Teams Instructional Materials Director Relationship Specialty Start Date End Date Lexus Fowler M.D., M.P.H. PCP - General 11/14/18 11/13/21 [address] [place] [address] documented as of this encounter
--- OUTSIDE RECORDS SUMMARY | 2022-02-27 08:00 | XMS_ITS | Encounter Summary ---
:1940 Author Organization [facility] Address [address] [place] [address] Care Team Providers Name Role Phone Lexus Fowler M.D., M.P.H. Primary Care Provider [phone] Encounter Details Date Type Department Care Team [...] How often do you attend tenriism or restoration services? Patien t refused 10/29/2020 [...] on filedocumented in this encounter Care Teams It Support Technician Relationship Specialty Start Date End Date Lexus Fowler M.D., M.P.H. PCP - General 11/14/18 11/13/21 [address] [place] [address] documented as of this encounter
--- OUTSIDE RECORDS SUMMARY | 2022-02-27 08:01 | XMS_ITS | Encounter Summary ---
:1939 Author Organization [facility] Address [address] [place] [address] Care Team Providers Name Role Phone Lexus [...] How often do you attend protestant or baptism services? Patien t refused 10/29/2020 [...] filedocumented in this encounter Care Teams Flight Purser Relationship Specialty Start Date End Date Lexus Fowler M.D., M.P.H. PCP - General 11/14/18 11/13/21 [address] [place] [address] documented as of this encounter
--- OUTSIDE RECORDS SUMMARY | 2022-02-27 08:01 | XMS_ITS | Encounter Summary ---
:1940 Author Organization [facility] Address [address] [place] [address] Care Team Providers Name Role Phone Lexus Fowler M.D., M.P.H. Primary Care Provider [phone] Encounter Details Date Type Department Care Team [...] How often do you attend yarsanism or hinduism services? Patien t refused 10/29/2020 [...] on filedocumented in this encounter Care Teams Audio Visual Technician Relationship Specialty Start Date End Date Lexus Fowler M.D., M.P.H. PCP - General 11/14/18 11/13/21 [address] [place] [address] documented as of this encounter
--- OUTSIDE RECORDS SUMMARY | 2022-02-27 08:01 | XMS_ITS | Encounter Summary ---
:1939 Author Organization [facility] Address [address] [place] [address] Care Team Providers Name Role Phone Lexus Fowler M.D., M.P.H. Primary Care Provider [phone] Reason for Visit Reason Comments Communication Dr. Lexus Fowler Encounter Details Date Type Department Care Team Description 12/25/2019 Clinical Department of Lexus Fowler (Dr. Hampton Family MedicineMaikol M.D., M.P.H. Lexus Fowler ) [facility] [address] [facility] in [place], [place] [address] 411 [facility] [phone] [place], [place] (Work) [address] Social History Tobacco [...] often do you attend roman catholic or jainism services? Patien t refused 10/29/2020 [...] state that he used [facility] in [place] for his shoes. He will contact [facility] in [place] to resend the needed paperwork. While on the phone, that patient also asked why he was needing to get the Hep B vaccine series. The patient stated, no one else I know is having to get one. After reading the [facility] vaccine schedule, the patient believes it [...] you, Marylin Fowler Telephone Encounter - Vipin Velze - 12/25/2019 12:54 PM CDT Caller: Vinayak Vazquez Relationship to Patient: [phone] Callback Number: [phone] Pharmacy: [facility] Request/Details: Pt called to check on status of Rx for diabetic shoes sent from pharmacy. Pt wants to know if AUTH or signature completed by PCP & sent back. 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 Thank you. documented in this encounter Plan of Treatment Not on filedocumented as of this encounter Visit Diagnoses Not on filedocumented in this encounter Care Teams High Reach Operator Relationship Specialty Start Date End Date Lexus Fowler M.D., M.P.H. PCP - General 11/14/18 11/13/21 [address] [place] [address] documented as of this encounter
--- OUTSIDE RECORDS SUMMARY | 2022-02-27 08:01 | XMS_ITS | Encounter Summary ---
:1940 Author Organization [facility] Address [address] [place] [address] Care Team Providers Name Role Phone Lexus Fowler M.D., M.P.H. Primary Care Provider [phone] Reason for Referral Outpatient (Routine) - Closed Specialty Diagnoses / Procedures Referred By Contact Refer red To Contact Vascular Medicine [facility] C.N.P., D.N.P. [address] [place] [address] [phone] Referral ID Status Reason Start Date Expiration Date Visits Requ ested Visits Authorized [id number] Closed 10/06/2019 10/05/2020 1 1 RI/CAT/PET Scan (Routine) - Closed Specialty Diagnoses / Procedures Referred By Contact Refer red To Contact Radiology Diagnoses Diabetes Mellitus 2 Ulcer Toe (HCC) [facility] Procedures MR Foot Right without IV Contrast C.N.P., D.N.P. [address] [place] [phone] Referral ID Status Reason Start Date Expiration Date Visits Requ ested Visits Authorized [id number] Closed 10/06/2019 10/05/2020 1 1 Reason for Visit Outpatient (Routine) - Closed Specialty Diagnoses / Procedures Referred By Contact Refer red To Contact Vascular Medicine Diagnoses Diabetes Mellitus 2 Ulcer Toe (HCC) Roslyn Veliz APRN, [facility] C.N.P. 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 Cellulitis Foot Right [place] [address] [facility] [address] [place] [phone] Social History Tobacco Use Types Packs/Day Years [...] How often do you attend tenriism or adventist services? Patien t refused 10/29/2020 Do you belong to any clubs or organizations such as Nabil viera tenriism groups, unions, fraternal or athletic groups, [...] through 14 - You may wear shoes geothermal system installer in your house only. Beyond day 14 - If no problems have developed, you may begin wearing them outside the house. If you have any wound care questions or concerns please contact the Vascular Center at [phone]. If you need to cancel, reschedule, or schedule a wound care appointment please call [phone]. Provider Signature Emelyn Diamond APRN, C.N.P., D.N.P. documented in this encounter Consult Notes Emelyn Diamond APRN C.N.P., D.N.P. - 10/06/2019 10:00 AM CDT SUBJECTIVE REFERRAL INFORMATION Roslyn Veliz, ALEN, C.N.P. [address] [place] [address] CHIEF COMPLAINT/REASON FOR VISIT Initial evaluation of [...] he was seen at a clinic in [place] for an infected right great toe callus [...] Name Type Priority Associated Diagnoses Order S [facility] Vascular Medicine Outpatient Referral Routine Exp [...] Organization Address City/State/ZIP Code Phon e Number [facility] - [address] [place] [address] [address] [place] [address] [facility] 200 [facility] CBC without Differential (10/06/2019 10:54 AM CDT) [...] Organization Address City/State/ZIP Code Phon e Number [facility] - 200 [place], [place] [address] [place] [address] 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 PCP - General 11/14/18 11/13/[address] [place] [address] documented as of this encounter
--- OUTSIDE RECORDS SUMMARY | 2022-02-27 08:01 | XMS_ITS | Encounter Summary ---
:1940 Author Organization [facility] Address [address] [place] [address] Care Team Providers Name Role Phone Lexus Fowler M.D., M.P.H. Primary Care Provider [phone] Reason for Visit Reason Comments Med Refill Encounter Details Date Type Department Care Team Description 01/14/2020 Refill Department of Family Medicine, Enedelia Tafoya M.D. Med Refill [place], in [address] [place] [address] [address] [facility] [place] [address] [phone] Social History Tobacco Use Types Packs/Day Years [...] How often do you attend latter-day or amish services? Patien t refused 10/29/2020 [...] Primary documented in this encounter Care Teams Wellhead Pumper Relationship Specialty Start Date End Date Lexus Fowler M.D., M.P.H. PCP - General 11/14/18 11/13/21 [address] [place] [address] documented as of this encounter
--- OUTSIDE RECORDS SUMMARY | 2022-02-27 08:01 | XMS_ITS | Encounter Summary ---
:1940 Author Organization [facility] Address [address] [place] [address] Care Team Providers Name Role Phone Lexus Fowler M.D., M.P.H. 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 200 [place] [address] Referral ID Status Reason Start Date Expiration Date Visits Requ ested Visits Authorized [id number] Closed 11/15/2019 11/14/2020 1 1 Reason for Visit Outpatient (Routine) - Closed Specialty Diagnoses / Procedures Referred By Contact Refer red To Contact Orthopedic Surgery Roslyn Veliz APRN, [facility] C.N.P. [address] [place] [phone] Referral ID Status Reason Start Date Expiration Date Visits Requ ested Visits Authorized [id number] Closed 10/02/2019 10/01/2020 1 1 Encounter Details Date Type Department Care Team Description 11/15/2019 Procedure visit Department of Belkis Richter Onychomy cosis (Primary Dx); Orthopedic Surgery ALEN Lozano, C.N.P. Callus [place] Foot; in [place], Dystrophic Toe nail; [place] Diabetes Mellitus Type 2 Wit h Diabetic Polyneuropathy (HCC); [address] Diabetes Mellitus 2 Ulcer To e (HCC) [place] [address] Social History Tobacco Use Types Packs/Day Years [...] How often do you attend yazidism or samaritan services? Patien t refused 10/29/2020 [...] Dr. Lexus Fowler and Dr. Raul Dunlap ([facility]) September 28, 2019 for active care management. [...] Associated Diagnoses Order S [facility] Orthopedic Surgery Outpatient Referral Routine Onychomyc osis Expected: office visit Callus [place] Foot 01/16/2020 (clinic) Dystrophic Toena il (Approximate), Diabetes Mellitus Type Expir es: 2 With Diabetic 11/14/2022 Polyneuropathy ( HCC) Diabetes Mellitus 2 Ulcer Toe (HCC) documented as of this encounter Visit Diagnoses Diagnosis Onychomycosis - Primary Callus [place] Foot Dystrophic Toenail Diabetes Mellitus Type 2 With Diabetic P olyneuropathy (HCC) Diabetes Mellitus 2 Ulcer Toe (HCC) documented in this encounter Care Teams Bilingual Patient Support Caseworker Relationship Specialty Start Date End Date Lexus Fowler M.D., M.P.H. PCP - General 11/14/18 11/13/21 [address] [place] [address] documented as of this encounter
--- OUTSIDE RECORDS SUMMARY | 2022-02-27 08:01 | XMS_ITS | Encounter Summary ---
:1939 Author Organization [facility] Address [address] [place] [address] Care Team Providers Name Role Phone Lexus oFwler M.D., M.P.H. Primary Care Provider [phone] Encounter Details Date Type Department Care Team [...] often do you attend oriental orthodox or yazidism services? Patien t refused [...] on filedocumented in this encounter Care Teams Bond Trader Relationship Specialty Start Date End Date Lexus Fowler M.D., M.P.H. PCP - General 11/14/18 11/13/21 [address] [place] [address] documented as of this encounter
--- OUTSIDE RECORDS SUMMARY | 2022-02-27 08:01 | XMS_ITS | Encounter Summary ---
:1939 Author Organization [facility] Address [address] [place] [address] Care Team Providers Name Role Phone Lexus Fowler M.D., M.P.H. Primary Care Provider [phone] Encounter Details Date Type Department Care Team [...] How often do you attend hoahaoism or presybeterian services? Patien t refused 10/29/2020 [...] on filedocumented in this encounter Care Teams Forestry Supervisor Relationship Specialty Start Date End Date Lexus Fowler M.D., M.P.H. PCP - General 11/14/18 11/13/21 [address] [place] [address] documented as of this encounter
--- OUTSIDE RECORDS SUMMARY | 2022-02-27 08:01 | XMS_ITS | Encounter Summary ---
:1939 Author Organization [facility] Address [address] [place] [address] Care Team Providers Name Role Phone Lexus Fowler M.D., M.P.H. Primary Care Provider [phone] Encounter Details Date Type Department Care Team [...] How often do you attend rastafari or tenriism services? Patien t refused 10/29/2020 [...] on filedocumented in this encounter Care Teams Employer Relations Representative Relationship Specialty Start Date End Date Lexus Fowler M.D., M.P.H. PCP - General 11/14/18 11/13/21 [address] [place] [address] documented as of this encounter
--- OUTSIDE RECORDS SUMMARY | 2022-02-27 08:01 | XMS_ITS | Encounter Summary ---
:1939 Author Organization [facility] Address [address] [place] [address] Care Team Providers Name Role Phone Lexus Fowler M.D., M.P.H. Primary Care Provider [phone] Encounter Details Date Type Department Care Team [...] How often do you attend alevism or presybeterian services? Patien t refused 10/29/2020 [...] on filedocumented in this encounter Care Teams Clearance Representative Relationship Specialty Start Date End Date Lexus Fowler M.D., M.P.H. PCP - General 11/14/18 11/13/21 [address] [place] [address] documented as of this encounter
--- OUTSIDE RECORDS SUMMARY | 2022-02-27 08:01 | XMS_ITS | Encounter Summary ---
:1939 Author Organization [facility] Address [address] [place] [address] Care Team Providers Name Role Phone Lexus Fowler M.D., M.P.H. Primary Care Provider [phone] Encounter Details Date Type Department Care Team Description 10/02/2019 Hospital Encounter Department of Roslyn Veliz Diabet es Mellitus 2 Radiology, Clark LOWRY C.N.P. Ulcer Toe ([facility]) Building, in [address] [place] [address] [place], [place] [phone] [address] (Work) [phone] Social History Tobacco Use Types Packs/Day Years [...] How often do you attend pentecostalism or rastafari services? Patien t refused 10/29/2020 Do you belong to any clubs or organizations such as Not aske d pentecostalism groups, unions, fraternal or athletic groups, [...] (HCC) documented in this encounter Care Teams Corporate Development Officer Relationship Specialty Start Date End Date Lexus Fowler M.D., M.P.H. PCP - General 11/14/18 11/13/21 [address] [place] [address] documented as of this encounter
--- OUTSIDE RECORDS SUMMARY | 2022-02-27 08:01 | XMS_ITS | Encounter Summary ---
:1939 Author Organization [facility] Address [address] [place] [address] Care Team Providers Name Role Phone Lexus Fowler M.D., M.P.H. Primary Care Provider [phone] Reason for Referral Outpatient (Routine) - Closed Specialty Diagnoses / Procedures Referred By Contact Refer red To Contact Vascular Medicine Sherry Slater APRN, [place] C.NYandy, M.S.N. [address] [place] [address] Referral ID Status Reason Start Date Expiration Date Visits Requ ested Visits Authorized [id number] Closed 01/15/2020 01/14/2021 1 1 utpatient (Routine) - Closed Specialty Diagnoses / Procedures Referred By Contact Refer red To Contact Vascular Medicine Sherry Slater APRN, [place] C.N.PClarence, M.S.N. 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 [address] [place] [address] Referral ID Status Reason Start Date Expiration Date Visits Requ ested Visits Authorized [id number] Closed 12/04/2019 12/03/2020 1 1 Encounter Details Date Type Department Care Team Description 01/15/2020 Office Visit Department of Vascular Sherry Slater, Diabetes Mellitus 2 Ulcer Toe (HCC) (Primary Dx); Medicine in [place], Kei LOWRY, Diab etes Mellitus Type 2 With Diabetic Neuropathy (HCC); [place] M.S.N. Diabetes Mellitus Type 2 (HCC) [address] [place] [phone] Social History Tobacco Use Types Packs/Day Years [...] How often do you attend baptist or presybeterian services? Patien t refused 10/29/2020 [...] 14 - You may wear shoes time lock expert in your house only. Beyond day 14 - If no problems have developed, you may begin wearing them outside the house. If you have any wound care questions or concerns please contact the Vascular Center at [phone]. If you need to cancel, reschedule, or schedule a wound care appointment please call [phone]. Provider Signature Sherry Slater APRN, C.N.P., M.S.N. documented in this encounter Progress Notes Sherry Slater APRN, C.N.P., M.S.N. - 01/15/2020 9:00 AM CDT REFERRAL SOURCE Bette Juarez APRN, C.N.P., M.S.N. [address] [place] [address] SUBJECTIVE CHIEF COMPLAINT / REASON FOR VISIT [...] that he recently ordered diabetic shoes/insert through [facility]. The shoes should be coming in shortly. He reports he consistently built up callous on the toe. Well living in [place], he had been seen podiatry for cares. [...] six weeks. He will be leaving for [place] mid to late February. He notes that he will be seen with a local motor lodge clerk there who also does wound cares. He [...] sharp debridement under 20 cm performed by HELICOPTER REPAIRER. Billing does not reflect debridement time. Sherry Slater APRN, C.N.P., M.S.N. documented in this encounter Plan of Treatment Scheduled Referrals Name Type Priority Associated Diagnoses Order S [facility] Vascular Medicine Outpatient Referral Routine Exp [...] (HCC) documented in this encounter Care Teams Slide Machine Tender Relationship Specialty Start Date End Date Lexus Fowler M.D., M.P.H. PCP - General 11/14/18 11/13/21 [address] [place] [address] documented as of this encounter
--- OUTSIDE RECORDS SUMMARY | 2022-02-27 08:01 | XMS_ITS | Encounter Summary ---
:1939 Author Organization [facility] Address [address] [place] [address] Care Team Providers Name Role Phone Lexus Fowler M.D., M.P.H. Primary Care Provider [phone] Encounter Details Date Type Department Care Team [...] How often do you attend mandaen or zoroastrianism services? Patien t refused 10/29/2020 [...] on filedocumented in this encounter Care Teams Gray Mixing Operator Relationship Specialty Start Date End Date Lexus Fowler M.D., M.P.H. PCP - General 11/14/18 11/13/21 [address] [place] [address] documented as of this encounter
--- OUTSIDE RECORDS SUMMARY | 2022-02-27 08:01 | XMS_ITS | Encounter Summary ---
:1939 Author Organization [facility] Address [address] [place] [address] Care Team Providers Name Role Phone Lexus Fowler M.D., M.P.H. Primary Care Provider [phone] Encounter Details Date Type Department Care Team [...] How often do you attend hinduism or restoration services? Patien t refused 10/29/2020 [...] on filedocumented in this encounter Care Teams Steam Tunnel Feeder Relationship Specialty Start Date End Date Lexus Fowler M.D., M.P.H. PCP - General 11/14/18 11/13/21 [address] [place] [address] documented as of this encounter
--- OUTSIDE RECORDS SUMMARY | 2022-02-27 08:01 | XMS_ITS | Encounter Summary ---
:1939 Author Organization [facility] Address [address] [place] [address] Care Team Providers Name Role Phone Lexus Fowler M.D., M.P.H. Primary Care Provider [phone] Encounter Details Date Type Department Care Team Description 10/03/2019 Clinical Communication Department of [facility] Duarte Veliz, Medicine, [facility] AIRBORNE OPERATIONS SUPERINTENDENT, C.N. P. [facility], in [address] [place] [address] 411 [facility] [address] [place] [address] [phone] Social History Tobacco Use Types Packs/Day Years [...] How often do you attend anabaptism or faith services? Patien t refused 10/29/2020 [...] on filedocumented in this encounter Care Teams Cafe Cook Relationship Specialty Start Date End Date Lexus Fowler M.D., M.P.H. PCP - General 11/14/18 11/13/21 [address] [place] [address] documented as of this encounter
--- OUTSIDE RECORDS SUMMARY | 2022-02-27 08:01 | XMS_ITS | Encounter Summary ---
:1939 Author Organization [facility] Address [address] [place] [address] Care Team Providers Name Role Phone Lexus Fowler M.D., M.P.H. Primary Care Provider [phone] Reason for Visit Reason Comments COVID Inquiry Encounter Details Date Type Department Care Team Description 11/16/2019 Clinical Communication Department of Lexus Fowler Family MedicineMaikol M.D., M.P.H. [facility] [address] [facility] [address] 411 [facility] [phone] [place], [place] (Work) [address] [phone] Social History Tobacco Use Types Packs/Day Years [...] How often do you attend sabianism or jew services? Patien t refused 10/29/2020 [...] - 11/16/2019 8:42 AM CDT ([facility] and [place] [facility] locations only: If the patient is not having symptoms and is requesting COVID-19 Nasal Swab testing only, use the process listed in the COVID-19 Patient Requesting COVID PCR Test OTG COVID-19 [place] Patient Requesting COVID PCR Test). In the past 30 days have you had a swab for COVID that tested positive? no Route reply to: [facility] Scheduling Scheduling Contact Number: [phone] documented in this encounter Plan of Treatment Not on filedocumented as of this encounter Visit Diagnoses Not on filedocumented in this encounter Care Teams Shotgun Shell Assembly Machine Adjuster Relationship Specialty Start Date End Date Lexus Fowler M.D., M.P.H. PCP - General 11/14/18 11/13/[address] [place] [address] documented as of this encounter
--- OUTSIDE RECORDS SUMMARY | 2022-02-27 08:01 | XMS_ITS | Encounter Summary ---
:1939 Author Organization [facility] Address [address] [place] [address] Care Team Providers Name Role Phone Lexus Fowler M.D., M.P.H. Primary Care Provider [phone] Reason for Visit Reason Comments ALETHEA Nurse Line Encounter Details Date Type Department Care Team Description 12/22/2019 Clinical Communication Department of Lexus Fowler Nurse Joan Family MedicineMaikol M.D., M.P.H. [facility] [address] [facility] [address] [address] [facility] [phone] [place], [place] (Work) [phone] Social History Tobacco Use Types Packs/Day Years [...] How often do you attend judaism or lutheran services? Patien t refused 10/29/2020 [...] on filedocumented in this encounter Care Teams Classics Teacher Relationship Specialty Start Date End Date Lexus Fowler M.D., M.P.H. PCP - General 11/14/18 11/13/21 [address] [place] [address] documented as of this encounter
--- OUTSIDE RECORDS SUMMARY | 2022-02-27 08:01 | XMS_ITS | Encounter Summary ---
:1939 Author Organization [facility] Address [address] [place] [address] Care Team Providers Name Role Phone Lexus Fowler M.D., M.P.H. Primary Care Provider [phone] Reason for Visit Reason Comments Immunizations Outpatient (Routine) - Closed Specialty Diagnoses / Procedures Referred By Contact Refer red To Contact Lexus Fowler M.D., M.P.H. [facility] [address] [place] [address] [phone] Referral ID Status Reason Start Date Expiration Date Visits Requ ested Visits Authorized [id number] Closed 09/28/2019 09/27/2020 1 1 Encounter Details Date Type Department Care Team Description 12/26/2019 Nurse Only Department of [facility] Lu Fowler M.D., M.P.H. [address] [place] [phone] Immunizations Medicine, [facility] Wily Fernández, L.P.N. [address] [place] [phone] [place], [place] [address] [place] [address] Social History Tobacco Use Types Packs/Day Years [...] How often do you attend shinto or sabianist services? Patien t refused 10/29/2020 [...] documented in this encounter Care Teams Sales Attendant Relationship Specialty Start Date End Date Lexus Fowler M.D., M.P.H. PCP - General 11/14/18 11/13/21 [address] [place] [address] documented as of this encounter
--- OUTSIDE RECORDS SUMMARY | 2022-02-27 08:01 | XMS_ITS | Encounter Summary ---
:1940 Author Organization [facility] Address [address] [place] [address] Care Team Providers Name Role Phone Lexus Fowler M.D., M.P.H. 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 200 [place] [address] Referral ID Status Reason Start Date Expiration Date Visits Requ ested Visits Authorized [id number] Closed 11/15/2019 11/14/2020 1 1 Encounter Details Date Type Department Care Team Description 01/08/2020 Procedure visit Department of Belkis Richter (Primary Dx); Orthopedic Surgery ALEN Lozano, C.N.P. Callus [place] Foot; in [place], Dystrophic Toe nail; [place] Diabetes Mellitus Type 2 Wit h Diabetic Polyneuropathy (HCC); [address] Diabetes Mellitus 2 Ulcer To e (HCC); [place], [place] Deformity Cavu s Foot Acquired Right [address] Social History Tobacco Use Types Packs/Day Years [...] How often do you attend buddhist or moravian services? Patien t refused 10/29/2020 [...] Dr. Lexus Fowler and Dr. 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 PCP - General 11/14/18 11/13/21 [address] [place] [address] documented as of this encounter
--- OUTSIDE RECORDS SUMMARY | 2022-02-27 08:01 | XMS_ITS | Encounter Summary ---
:[address] [facility] Address [address] [place] [address] Care Team Providers Name Role Phone Lexus Fowler M.D., M.P.H. Primary Care Provider [phone] Reason for Visit Reason Comments ALETHEA Nurse Line Encounter Details Date Type Department Care Team Description 01/16/2020 Clinical Communication Department of Lexus Fowler Nurse Line Family MedicineMaikol M.D., M.P.H. [place] [address] [facility] [address] [address] [facility] [phone] [place], [place] (Work) [phone] Social History Tobacco Use Types Packs/Day Years [...] How often do you attend presybeterian or baptism services? Patien t refused 10/29/2020 [...] 01/16/2020 9:02 AM CDT ([facility] and [facility] locations only: If the patient is not having symptoms and is requesting COVID-19 Nasal Swab testing only, use the process listed in the COVID-19 Patient Requesting COVID PCR Test OTG COVID-19 [place] Patient Requesting COVID PCR Test). In the past 30 days have you had a swab for COVID that tested positive? no Route reply to: Please respond to [facility] BLOOD Scheduling pool if necessary Scheduling Contact Number: [phone] documented in this encounter Plan of Treatment Not on filedocumented as of this encounter Visit Diagnoses Not on filedocumented in this encounter Care Teams Grounds Supervisor Relationship Specialty Start Date End Date Lexus Fowler M.D., M.P.H. PCP - General 11/14/18 11/13/21 [address] [place] [address] documented as of this encounter
--- OUTSIDE RECORDS SUMMARY | 2022-02-27 08:01 | XMS_ITS | Encounter Summary ---
:1940 Author Organization [facility] Address [address] [place] [address] Care Team Providers Name Role Phone Lexus Fowler M.D., M.P.H. 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 [address] [place] [address] Referral ID Status Reason Start Date Expiration Date Visits Requ ested Visits Authorized [id number] Closed 10/30/2019 10/29/2020 1 1 Reason for Visit Outpatient (Routine) - Closed Specialty Diagnoses / Procedures Referred By Contact Refer red To Contact Vascular Medicine Emelyn Diamond APRN, [facility] C.N.PClarence, D.N.P. [address] [place] [phone] Referral ID Status Reason Start Date Expiration Date Visits Requ ested Visits Authorized [id number] Closed 10/06/2019 10/05/2020 1 1 Encounter Details Date Type Department Care Team Description 10/30/2019 Office Visit Department of Bette Man Diabetes Mellitus 2 Ulcer Toe (HCC) (Primary Dx); Vascular Medicine in [place], ALEN, Kei, Anna raoul Mellitus Type 2 With Diabetic Neuropathy (HCC); [place], [place] Elian Cellulitis Foot Right [address] [place] [address] [phone] Social History Tobacco Use Types Packs/Day Years [...] How often do you attend jew or orthodoxy services? Patien t refused 10/29/2020 [...] through 14 - You may wear shoes real time analyst in your house only. Beyond day 14 - If no problems have developed, you may begin wearing them outside the house. If you have any wound care questions or concerns please contact the Vascular Center at [phone]. If you need to cancel, reschedule, or schedule a wound care appointment please call [phone]. Provider Signature Bette Juarez APRN, C.N.Letha., M.S.N. documented in this encounter Progress Notes Bette Juarez APRN, C.N.P., M.S.N. - 10/30/2019 2:30 PM CDT REFERRAL SOURCE Emelyn Diamond APRN, C.N.Letha., D.N.P. [address] [place] [address] SUBJECTIVE CHIEF COMPLAINT / REASON FOR VISIT Re-evaluation of right distal 1st toe ulcer. Patient seen at the [facility] wound care clinic. HISTORY OF PRESENT [...] Priority Associated Diagnoses Order S [facility] Vascular Medicine Outpatient Referral Routine Diabetes [...] Right documented in this encounter Care Teams Sweater Designer Relationship Specialty Start Date End Date Lexus Fowler M.D., M.P.H. PCP - General 11/14/18 11/13/21 [address] [place] [address] documented as of this encounter
--- OUTSIDE RECORDS SUMMARY | 2022-02-27 08:01 | XMS_ITS | Encounter Summary ---
:1939 Author Organization [facility] Address [address] [place] [address] Care Team Providers Name Role Phone Lxeus Fowler M.D., M.P.H. Primary Care Provider [phone] Encounter Details Date Type Department Care Team Description 10/05/2019 Clinical Communication Department of [facility] Marlen Fowler, [facility], Estiven Gupta, M.P.H. [facility] [address] [place] [phone] [place] [address] [place] [address] Social History Tobacco Use Types [...] How often do you attend confucianism or bahai services? Patien t refused 10/29/2020 [...] to: CHRISTOPHER SOLIS SCHEDULING Scheduling Contact Number: [phone] documented in this encounter Plan of Treatment Not on filedocumented as of this encounter Visit Diagnoses Not on filedocumented in this encounter Care Teams Flame Cutting Machine Operator Helper Relationship Specialty Start Date End Date Lexus Fowler M.D., M.P.H. PCP - General 11/14/18 11/13/21 [address] [place] [address] documented as of this encounter
--- OUTSIDE RECORDS SUMMARY | 2022-02-27 08:01 | XMS_ITS | Encounter Summary ---
:1939 Author Organization [facility] Address [address] [place] [address] Care Team Providers Name Role Phone Lexus Fowler M.D., M.P.H. Primary Care Provider [phone] Encounter Details Date Type Department Care Team Description 10/06/2019 Hospital Encounter Department of Emelyn Diamond es Mellitus 2 Laboratory Medicine D, FINE HAIRER, Ulcer To e (HCC) and Pathology, C.N.P., D.N.P. [facility], in [address] [place] [address] [place] [address] [place], [place] [phone] [address] (Work) [phone] Social History Tobacco Use Types Packs/Day Years [...] How often do you attend quaker or orthodox services? Patien t refused 10/29/2020 [...] D.N.P. LAB BLOOD ADD-ON Performing Organization Address City/[facility] Phon e Number [facility] - 200 [place], [place] [address] [facility] [place] [address] CBC without Differential (10/06/2019 10:54 AM [...] D.N.P. LAB BLOOD ADD-ON Performing Organization Address City/[facility] Phon e Number [facility] - 200 [place], [place] [address] [facility] [place] [address] documented in this encounter Visit Diagnoses Diagnosis Diabetes Mellitus 2 Ulcer Toe (HCC) documented in this encounter Care Teams Video Software Engineer Relationship Specialty Start Date End Date Lexus Fowler M.D., M.P.H. PCP - General 11/14/18 11/13/[address] [place] [address] documented as of this encounter
--- OUTSIDE RECORDS SUMMARY | 2022-02-27 08:01 | XMS_ITS | Encounter Summary ---
:1939 Author Organization [facility] Address [address] [place] [address] Care Team Providers Name Role Phone Lexus Fowler M.D., M.P.H. Primary Care Provider [phone] Reason for Referral MRI/CAT/PET Scan (Routine) - Closed Specialty Diagnoses / Procedures Referred By Contact Refer red To Contact Radiology Diagnoses Diabetes Mellitus 2 Ulcer Toe (HCC) [facility] Procedures [facility] Foot Right without IV Contrast C.N.P., D.N.P. [address] [place] [phone] Referral ID Status Reason Start Date Expiration Date Visits Requ ested Visits Authorized [id number] Closed 10/06/2019 10/05/2020 1 1 Reason for Visit MRI/CAT/PET Scan (Routine) - Closed Specialty Diagnoses / Procedures Referred By Contact Refer red To Contact Radiology Diagnoses Diabetes Mellitus 2 Ulcer Toe (HCC) [facility] Procedures MR Foot Right without IV Contrast C.N.P., D.N.P. [address] [place] [phone] Referral ID Status Reason Start Date Expiration Date Visits Requ ested Visits Authorized [id number] Closed 10/06/2019 10/05/2020 1 1 Encounter Details Date Type Department Care Team Description 10/10/2019 Hospital Encounter Department of Lobo, Emelyn Diabet es Mellitus 2 Radiology, Viraj D, INFRASTRUCTURE PROJECT MANAGER, Ulcer Toe ( HCC) Building, in C.N.P., D.N.P. [place], [place] 200 [facility] 200 [place] [phone] Social History Tobacco Use Types Packs/Day Years [...] How often do you attend worship or oriental orthodox services? Patien t refused [...] (two) With Diabetic Neuropathy times a day. ([facility]) [email or web address] ULTRA BLUE TEST daily. for 3 01/07/2018 [...] (HCC) documented in this encounter Care Teams Personal Trainer Relationship Specialty Start Date End Date Lexus Fowler M.D., M.P.H. PCP - General 11/14/18 11/13/21 [address] [place] [address] documented as of this encounter
--- OUTSIDE RECORDS SUMMARY | 2022-02-27 08:01 | XMS_ITS | Encounter Summary ---
:1940 Author Organization [facility] Address [address] [place] [address] Care Team Providers Name Role Phone Lexus Fowler M.D., M.P.H. Primary Care Provider [phone] Reason for Visit Reason Comments COVID Inquiry Encounter Details Date Type Department Care Team Description 11/13/2019 Clinical Communication Department of Lexus Fowler Family MedicineMaikol M.D., M.P.H. [facility] [address] [facility] [address] [address] [facility] [phone] [place], [place] (Work) [address] [phone] Social History Tobacco Use Types Packs/Day Years [...] 10/29/2020 relatives? How often do you attend faith or quaker services? Patien t refused 10/29/2020 Do you belong to any clubs or organizations such as Nabil borrero faith groups, unions, fraternal or athletic groups, or [...] - 11/13/2019 10:27 AM CDT ([facility] and [facility] locations only: If the patient is not having symptoms and is requesting COVID-19 Nasal Swab testing only, use the process listed in the COVID-19 Patient Requesting COVID PCR Test OTG COVID-19 [place] Patient Requesting COVID PCR Test). 1. Do [...] last 14 days? no Route reply to: [facility] scheduling Scheduling Contact Number: [phone] documented in this encounter Plan of Treatment Not on filedocumented as of this encounter Visit Diagnoses Not on filedocumented in this encounter Care Teams Construction Job Titles Relationship Specialty Start Date End Date Lexus Fowler M.D., M.P.H. PCP - General 11/14/18 11/13/21 [address] [place] [phone] documented as of this encounter
--- OUTSIDE RECORDS SUMMARY | 2022-02-27 08:01 | XMS_ITS | Encounter Summary ---
:1939 Author Organization [facility] Address [address] [place] [address] Care Team Providers Name Role Phone Lexus Fowler M.D., M.P.H. Primary Care Provider [phone] Encounter Details Date Type Department Care Team [...] How often do you attend adventist or adventist services? Patien t refused 10/29/2020 [...] on filedocumented in this encounter Care Teams Accounts Payable Coordinator Relationship Specialty Start Date End Date Lexus Fowler M.D., M.P.H. PCP - General 11/14/18 11/13/21 [address] [place] [address] documented as of this encounter
--- OUTSIDE RECORDS SUMMARY | 2022-02-27 08:01 | XMS_ITS | Encounter Summary ---
:1939 Author Organization [facility] Address [address] [place] [address] Care Team Providers Name Role Phone Lexus Fowler M.D., M.P.H. Primary Care Provider [phone] Encounter Details Date Type Department Care Team [...] How often do you attend scientology or sikh services? Patien t refused 10/29/2020 [...] in this encounter Care Teams Shotgun Shell Reprinting Unit Operator Relationship Specialty Start Date End Date Lexus Fowler M.D., M.P.H. PCP - General 11/14/18 11/13/21 [address] [place] [address] documented as of this encounter
--- OUTSIDE RECORDS SUMMARY | 2022-02-27 08:01 | XMS_ITS | Encounter Summary ---
:[address] [facility] Address [address] [place] [address] Care Team Providers Name Role Phone Lexus Fowler M.D., M.P.H. 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 [address] [place] [phone] Referral ID Status Reason Start Date Expiration Date Visits Requ ested Visits Authorized [id number] Closed 10/30/2019 10/29/2020 1 1 Encounter Details Date Type Department Care Team Description 12/04/2019 Office Visit Department of Bette Man Diabetes Mellitus 2 Ulcer Toe (HCC) (Primary Dx); Vascular Medicine in ALEN Nix C.N.P., Dia betes Mellitus Type 2 With Diabetic Neuropathy (HCC); [place], [place] Elian Cellulitis Foot Right [address] [place] [address] [phone] Social History Tobacco Use Types Packs/Day Years [...] How often do you attend lutheran or methodist services? Patien t refused 10/29/2020 [...] through 14 - You may wear shoes full time paramedic in your house only. Beyond day 14 - If no problems have developed, you may begin wearing them outside the house. If you have any wound care questions or concerns please contact the Vascular Center at [phone]. If you need to cancel, reschedule, or schedule a wound care appointment please call [phone]. Provider Signature Bette Juarez APRN, C.N.P., M.S.N. documented in this encounter Progress Notes Bette Juarez APRN, C.N.P., M.S.N. - 12/04/2019 9:00 AM CDT REFERRAL SOURCE Bette Juarez APRN, C.N.P., M.S.N. [address] [place] [phone] SUBJECTIVE CHIEF COMPLAINT / REASON FOR VISIT Re-evaluation of right distal 1st toe ulcer. Patient seen at the [facility] wound care clinic. HISTORY OF PRESENT [...] of an infection. He has modified an [id number] pair of shoes as the Darco shoes [...] Priority Associated Diagnoses Order S [facility] Vascular Medicine Outpatient Referral Routine Diabetes [...] Right documented in this encounter Care Teams Hop Separator Relationship Specialty Start Date End Date Lexus Fowler M.D., M.P.H. PCP - General 11/14/18 11/13/21 [address] [place] [address] documented as of this encounter
--- OUTSIDE RECORDS SUMMARY | 2022-02-27 08:02 | XMS_ITS | Encounter Summary ---
:1940 Author Organization [facility] Address [address] [place] [address] Care Team Providers Name Role Phone Lexus Fowler M.D., M.P.H. Primary Care Provider [phone] Reason for Visit Reason Comments COVID Inquiry Encounter Details Date Type Department Care Team Description 09/27/2019 Clinical Communication Department of Lexus Fowler Family MedicineMaikol M.D., M.P.H. [facility] [address] [facility] [address] [address] [facility] [phone] [place], [place] (Work) [address] [phone] Social History Tobacco Use Types Packs/Day Years [...] How often do you attend restoration or scientology services? Patien t refused 10/29/2020 [...] on filedocumented in this encounter Care Teams Full Time Staff Interpreter Relationship Specialty Start Date End Date Lexus Fowler M.D., M.P.H. PCP - General 11/14/18 11/13/21 [address] [place] [address] documented as of this encounter
--- OUTSIDE RECORDS SUMMARY | 2022-02-27 08:02 | XMS_ITS | Encounter Summary ---
:1940 Author Organization [facility] Address [address] [place] [address] Care Team Providers Name Role Phone Lexus Fowler M.D., M.P.H. Primary Care Provider [phone] Reason for Visit Reason Comments Med Refill Encounter Details Date Type Department Care Team Description 03/20/2019 Refill Department of [facility] Dinah Vargas RClarenceNClarence Med Refill Medicine, [facility] brandon Hernandez M [facility] [address] [place] [address] Social History Tobacco Use Types Packs/Day Years [...] How often do you attend denominational or holiness services? Patien t refused 10/29/2020 [...] Vijaya Vargas L.P.N. - 03/20/2019 4:18 PM SIGNAL TECHNICIAN Patient requested Amlodipine (Norvasc) 5 mg prescription and states that pharmacy did not receive iton 03/10. [place] TECHNICIAN documented in this encounter Plan of Treatment Not on filedocumented as of this encounter Visit Diagnoses Diagnosis Hypertension Essential Primary documented in this encounter Care Teams Slate Splitter Relationship Specialty Start Date End Date Lexus Fowler M.D., M.P.H. PCP - General 11/14/18 11/13/21 [address] [place] [address] documented as of this encounter
--- OUTSIDE RECORDS SUMMARY | 2022-02-27 08:02 | XMS_ITS | Encounter Summary ---
:1940 Author Organization [facility] Address [address] [place] [address] Care Team Providers Name Role Phone Kristal Galeana M.D. Primary Care Provider Reason for Referral Outpatient (Routine) - Closed Specialty Diagnoses / Procedures Referred By Contact Refer red To Contact Orthopedic Surgery Roslyn Veliz APRN, [place] C.N.PClarence [address] [place] [phone] Referral ID Status Reason Start Date Expiration Date Visits Requ ested Visits Authorized [id number] Closed 10/03/2018 10/03/2019 1 1 Reason for Visit Outpatient (Routine) - Closed Specialty Diagnoses / Procedures Referred By Contact Refer red To Contact Orthopedic Surgery Roslyn Veliz APRN, [place] C.N.P. [address] [place] [phone] Referral ID Status Reason Start Date Expiration Date Visits Requ ested Visits Authorized [id number] Closed 09/05/2018 09/05/2019 1 1 Encounter Details Date Type Department Care Team Description 10/03/2018 Procedure visit Department of Roslyn Veliz, Hypertrop hied Nail; Orthopedic Surgery ALEN, C.N.P. Diabetes Mellitus Type 2 With Diabetic N europathy (HCC); in [address] [place] [place], [place] [address] [place] [phone] [place], [place] [phone] (Work) [phone] Social History Tobacco Use Types Packs/Day Years [...] How often do you attend bahai or buddhist services? Patien t refused 10/29/2020 [...] PRESENT ILLNESS Mr. Vazquez presents to the [facility] with calluses on bilateral feet plantar surface. He states that he has his toenails taking care of in a salon and that they also work on his calluses. The patient wears New Balance shoes with lsll-pyw-nvmjabr inserts. He has had custom inserts from [employer], but states that these were more expensive and seem to work better. He and his return from [place] [...] Skin temperature changes: Bilateral feet are warm [place]/calluses: Hyperkeratotic buildup over the right 5th and [...] 2 With Diabetic N europathy (HCC) [facility] [place] [facility] documented in this encounter Care Teams Labeling Specialist Relationship Specialty Start Date End Date Kristal Galeana M.D. PCP - General Family Medicine 01/19/18 11/13/18 documented as of this encounter
--- OUTSIDE RECORDS SUMMARY | 2022-02-27 08:02 | XMS_ITS | Encounter Summary ---
:1939 Author Organization [facility] Address [address] [place] [address] Care Team Providers Name Role Phone Lexus Fowler M.D., M.P.H. Primary Care Provider [phone] Reason for Visit Reason Comments Appointment Encounter Details Date Type Department Care Team Description 09/25/2019 Clinical Communication Department of [facility] Marlen Fowler, Appointment Medicine, Estiven Gupta, M.P.H. [facility] [address] [place] [phone] 411 [facility] [place] [address] Social History Tobacco Use Types [...] How often do you attend druze or scientologist services? Patien t refused 10/29/2020 Do you belong to any clubs or organizations such as Not jelani d druze groups, unions, fraternal or athletic [...] CDT Caller: Vinayak Relationship to Patient:Self Callback Number:[phone] Pharmacy:NA Request/Details:Calling today stating he thinks he [...] on filedocumented in this encounter Care Teams Satellite Project Site Monitor Relationship Specialty Start Date End Date Lexus Fowler M.D., M.P.H. PCP - General 11/14/18 11/13/21 [address] [place] [address] documented as of this encounter
--- OUTSIDE RECORDS SUMMARY | 2022-02-27 08:02 | XMS_ITS | Encounter Summary ---
:1940 Author Organization [facility] Address [address] [place] [address] Care Team Providers Name Role Phone Kristal Galeana M.D. Primary Care Provider Reason for Referral Outpatient (Routine) - Closed Specialty Diagnoses / Procedures Referred By Contact Refer red To Contact Family Medicine Kristal Galeana M.D. [address] [place] [address] Referral ID Status Reason Start Date Expiration Date Visits Requ ested Visits Authorized [id number] Closed 09/22/2018 09/22/2019 1 1 Reason for Visit Reason Comments Diabetes Outpatient (Routine) - Closed Specialty Diagnoses / Procedures Referred By Contact Refer red To Contact Family Medicine Diagnoses Diabetes Mellitus Type 2 (HCC) Med Alvarez Burton Sonya Gupta [address] [place] [address] Referral ID Status Reason Start Date Expiration Date Visits Requ ested Visits Authorized [id number] Closed 03/04/2018 03/04/2019 1 1 Encounter Details Date Type Department Care Team Description 09/22/2018 Office Visit Department of Kristal Ramon Diabe gil 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 Diabetes Mellitus Type 2 (HCC); Clinic [address] Hyperte nsion Essential Primary; [place], [place] W [facility] [place] [facility]; [address] [place] [phone] Social History Tobacco Use Types Packs/Day Years [...] How often do you attend rastafarian or jainism services? Patien t refused 10/29/2020 [...] tonumbness/tingling or skin concerns. He sees a vascular technologist sonographer regularly. All immunizations up to date. #3 [...] face that we would have him try rdsp-gtt-sxikasc hydrocortisone cream to help with the irritation on the face but only for a week to prevent skin thinning. This was written out for him on his AVS. Future Appointments Date Time Provider Department Center 10/03/2018 2:30 PM Roslyn Veliz APRN, C.N.P. [facility] LINDA Rodas documented in this encounter Plan of Treatment Scheduled Referrals Name Type Priority Associated Diagnoses Order [facility] Outpatient Referral Routine Expec margoth: office visit 03/25/2019 (clinic) - Self (Approximate ), Expires: 09/22/2021 documented as of this encounter Results (ABNORMAL) Microalbumin, Random, Urine (03/08/2019 8:47 AM CDT) P athologist Signature Microalbumin 13.2 mg/L 03/08/2019 [facility] 1:44 PM CDT Comment: ----ADDITIONAL INFORMATION---- This test has been modified from the valentin hurtado's instructions. Its performance characteri stics were determined by [facility] in a manner co nsistent with [...] e Number [facility] - [address] [place] [address] [facility] PSA (Prostate-Specific Antigen), Diagnostic (03/08/2019 8:40 AM CDT) athologist Signature Prostate-Specif 0.76 <=6.5 ng/mL 03/08/2019 [facility] ic Ag 2:17 PM CDT Comment: ----ADDITIONAL INFORMATION---- The testing method is an electrochemilum inescence assay manufactured by [employer] and performed on the Modular or [...] Address City/State/ZIP Code Phon e Number [facility] [address] [address] [facility] (ABNORMAL) Hemoglobin A1c (03/08/2019 8:40 AM CDT) athologist Signature Hemoglobin A1c, 6.6 (H) 4.0 - 5.6 03/08/2019 [facility] B % 12:46 PM CDT Comment: [...] Code Phon e Number [facility] [address] [address] [facility] [address] documented in this encounter Visit Diagnoses Diagnosis Diabetes Mellitus Type 2 With Diabetic N europathy (HCC) - Primary Diabetes Mellitus Type 2 (HCC) Hypertension Essential Primary [facility] [place] [facility] Hyperlipidemia documented in this encounter Care Teams Steel Pourer Relationship Specialty Start Date End Date Kristal Galeana M.D. PCP - General Family Medicine 01/19/18 11/13/18 documented as of this encounter
--- OUTSIDE RECORDS SUMMARY | 2022-02-27 08:02 | XMS_ITS | Encounter Summary ---
:1939 Author Organization [facility] Address [address] [place] [address] Care Team Providers Name Role Phone Lexus Fowler M.D., M.P.H. Primary Care Provider [phone] Reason for Visit Reason Comments Med Refill Encounter Details Date Type Department Care Team Description 01/18/2019 Refill Department of [facility] Kasi Alvarez M.D. Med Refill Medicine, [facility] [address] [place] [address] [place] [address] [address] [facility] [place] [place] [address] [phone] Social History Tobacco Use Types Packs/Day Years [...] How often do you attend moravian or orthodoxy services? Patien t refused 10/29/2020 Do you belong to any clubs or organizations such as Not aske d moravian groups, unions, fraternal or athletic groups, [...] on filedocumented in this encounter Care Teams Drop Wire Hanger Relationship Specialty Start Date End Date Lexus Fowler M.D., M.P.H. PCP - General 11/14/18 11/13/21 [address] [place] [address] documented as of this encounter
--- OUTSIDE RECORDS SUMMARY | 2022-02-27 08:02 | XMS_ITS | Encounter Summary ---
:1939 Author Organization [facility] Address [address] [place] [address] Care Team Providers Name Role Phone Lexus Fowler M.D., M.P.H. Primary Care Provider [phone] Reason for Referral Outpatient (Routine) - Closed Specialty Diagnoses / Procedures Referred By Contact Refer red To Contact Orthopedic Surgery Roslyn Veliz APRN, [place] C.N.PClarence [address] [place] [phone] Referral ID Status Reason Start Date Expiration Date Visits Requ ested Visits Authorized [id number] Closed 08/16/2019 08/15/2020 1 1 Reason for Visit Outpatient (Routine) - Closed Specialty Diagnoses / Procedures Referred By Contact Refer red To Contact Orthopedic Surgery Adan Mosquera, [place] P.A.-C. 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 Dystrophic Toenail; in [address] Diabetes Mellitus Type 2 With Diabetic P olyneuropathy (HCC); [place], [place] [facility] [place] [facility] [address] [place] [address] [place], [place] [phone] (Work) [phone] Social History Tobacco Use Types Packs/Day Years [...] How often do you attend alevism or mosque services? Patien t refused 10/29/2020 [...] Vazquez accompanied by his presents to the [facility] for trimming of his dystrophic toenails and paring a pre ulcerative callus. The patient wears New Balance shoes with molded inserts. He states that he gets these insert from a place out town and that Medicare covers the cost. He has had custom inserts from [employer] in the past. A1C was 6.6 on 03/08/19. In May of this year, the patient had his callus pared states that a large chunk was removed withsubsequent bleeding and draining for the next month. On 07/10/19, he was seen the [facility] in [place] for a infected [...] peripheral neuropathy: Last seen Dr. Shivani Fowler [facility] on 03/10/19. OBJECTIVE PHYSICAL EXAM [...] Skin temperature changes: Bilateral feet are warm [place]/calluses: Hyperkeratotic buildup over the right hallux plantar [...] does not cover, he may use an vcbf-mjc-gmrwewo antibiotic ointment. He states that he does [...] 2 With Diabetic P olyneuropathy (HCC) [facility] [place] [facility] documented in this encounter Care Teams Map And Chart Mounter Relationship Specialty Start Date End Date Lexus Fowler M.D., M.P.H. PCP - General 11/14/18 11/13/[address] [place] [address] documented as of this encounter
--- OUTSIDE RECORDS SUMMARY | 2022-02-27 08:02 | XMS_ITS | Encounter Summary ---
:1939 Author Organization [facility] Address [address] [place] [address] Care Team Providers Name Role Phone Lexus Fowler M.D., M.P.H. Primary Care Provider [phone] Reason for Visit Reason Comments Med Refill Encounter Details Date Type Department Care Team Description 03/15/2019 Refill Department of [facility] Kasi Alvarez M.D. Med Refill Medicine, [facility] [address] [place] [address] [place] [address] 411 [facility] [place] [address] [phone] Social History Tobacco Use Types Packs/Day Years [...] How often do you attend sabianist or confucianist services? Patien t refused 10/29/2020 [...] on filedocumented in this encounter Care Teams Locker Room Clerk Relationship Specialty Start Date End Date Lexus Fowler M.D., M.P.H. PCP - General 11/14/18 11/13/21 [address] [place] [address] documented as of this encounter
--- OUTSIDE RECORDS SUMMARY | 2022-02-27 08:02 | XMS_ITS | Encounter Summary ---
:1939 Author Organization [facility] Address [address] [place] [address] Care Team Providers Name Role Phone Lexus Fowler M.D., M.P.H. Primary Care Provider [phone] Reason for Visit Reason Comments Diabetes Outpatient (Routine) - Closed Specialty Diagnoses / Procedures Referred By Contact Refer red To Contact Family Medicine Kristal Galeana M.D. [address] [place] [address] Referral ID Status Reason Start Date Expiration Date Visits Requ ested Visits Authorized [id number] Closed 09/22/2018 09/22/2019 1 1 Encounter Details Date Type Department Care Team Description 03/10/2019 Office Visit Department of Family Lexus Fowler, Diabetes 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, M.P.H. Hypertension Essential Primary; Family Clinic [address] [place] [address] Hyperlipidemia; brandon Hernandez [facility] [address] [address] [facility] [place] [address] Social History Tobacco Use Types [...] How often do you attend sabianism or hoahaoism services? Patien t refused 10/29/2020 [...] at that time. He is leaving for [facility] for the winter tomorrow, and [...] No guarding or rebound tenderness. Nohepatosplenomegaly. Skin: [place] and well perfused ASSESSMENT / PLAN #1 [...] 6 months time when he returns from [place]. We will work on ensuring that his [...] 6 months time when he returns from [place]. We will work on ensuring that his blood pressure is within goal range at that time. documented in this encounter Plan of Treatment Not on filedocumented as of this encounter Results (ABNORMAL) Creatinine with Estimated GFR (03/10/2019 10:44 AM CDT) P athologist Signature Creatinine 1.25 0.74 - 03/10/2019 [facility] 1.35 mg/dL 11:18 AM CDT eGFR-Black/Afric 63 >=60 03/10/2019 [facility] an [place] mL/min/BSA 11:18 AM CDT Comment: ----ADDITIONAL INFORMATION---- Estimated GFR calculated using the 2009 CKD_EPI creatinine equation. eGFR Non-Black/ 54 (L) >=60 mL/min/BSA 03/10/2019 11:18 AM CDT [facility] [place] Comment: ----ADDITIONAL INFORMATION---- Estimated GFR calculated using the 2009 CKD_EPI creatinine equation. Specimen Anatomical Collection Method Collection Time Receive d Time (Source) Location / / Volume Laterality Blood (Blood, 03/10/2019 10:44 03/10/2019 Venous) AM CDT 10:44 AM CDT Lexus Fowler M.D., M.P.H. LAB BLOOD ADD-ON Performing Organization Address City/[facility]/ZIP Code Phon e Number [address] [address] [facility], [place] [address] [place] [address] Sodium (03/10/2019 10:44 AM CDT) P athologist Signature Sodium, P 139 135 - 145 03/10/2019 [facility] mmol/L 11:18 AM CDT Specimen Anatomical Collection Method Collection Time Receive d Time (Source) Location / / Volume Laterality Blood (Blood, 03/10/2019 10:44 03/10/2019 Venous) AM CDT 10:44 AM CDT Lexus Fowler M.D., M.P.H. LAB BLOOD ADD-ON Performing Organization Address City/[facility]/ZIP Code Phon e Number [address] [address] [place] [address] [place] [address] Potassium (03/10/2019 10:44 AM CDT) P athologist Signature Potassium, P 4.8 3.6 - 5.2 03/10/2019 [facility] mmol/L 11:18 AM CDT Specimen Anatomical Collection Method Collection Time Receive d Time (Source) Location / / Volume Laterality Blood (Blood, 03/10/2019 10:44 03/10/2019 Venous) AM CDT 10:44 AM CDT Lexus Fowler M.D., M.P.H. LAB BLOOD ADD-ON Performing Organization Address City/[facility]/ZIP Code Phon e Number [address] [address] [place] [address] [place] [address] documented in this encounter Visit Diagnoses Diagnosis Diabetes Mellitus Type 2 With Diabetic N europathy (HCC) - Primary Hypertension Essential Primary Hyperlipidemia Maintenance Health Adult documented in this encounter Care Teams Surgical Services Manager Relationship Specialty Start Date End Date Lexus Fowler M.D., M.P.H. PCP - General 11/14/18 11/13/21 [address] [place] [address] documented as of this encounter
--- OUTSIDE RECORDS SUMMARY | 2022-02-27 08:02 | XMS_ITS | Encounter Summary ---
:1939 Author Organization [facility] Address [address] [place] [address] Care Team Providers Name Role Phone Lexus Fowler M.D., M.P.H. Primary Care Provider [phone] Encounter Details Date Type Department Care Team Description 09/26/2019 Hospital Encounter Department of Lexus Fowler Diab etes Mellitus Laboratory Medicine Alonso Lassiter, M.P .H. Type 2 [address] Diabetic Neuropathy [place], [place] ([facility]) 411 [facility] [address] [place], [place] [phone] [address] (Work) [phone] Social History Tobacco Use Types Packs/Day Years [...] How often do you attend yarsanism or anglican services? Patien t refused 10/29/2020 [...] day. ([facility]) ONETOUCH ULTRA BLUE TEST daily. for 3 [...] Organization Address City/State/ZIP Code Phon e Number [facility] - [address] [place], [place] [address] [facility] [place] [address] [facility] [address] documented in this encounter Visit Diagnoses Diagnosis Diabetes Mellitus Type 2 With Diabetic N europathy (HCC) documented in this encounter Care Teams Wellhead Pumper Relationship Specialty Start Date End Date Lexus Fowler M.D., M.P.H. PCP - General 11/14/18 11/13/[address] [place] [address] documented as of this encounter
--- OUTSIDE RECORDS SUMMARY | 2022-02-27 08:02 | XMS_ITS | Encounter Summary ---
:1939 Author Organization [facility] Address [address] [place] [address] Care Team Providers Name Role Phone Lexus Fowler M.D., M.P.H. Primary Care Provider [phone] Encounter Details Date Type Department Care Team Description 03/08/2019 Hospital Encounter Department of Kristal Galeana Diabet es Mellitus Laboratory Medicine Alonso Type 2 (HCC) in [address] [address] [phone] Social History Tobacco Use Types Packs/Day Years [...] How often do you attend congregational or anabaptism services? Patien t refused 10/29/2020 Do you belong to any clubs or organizations such as Not aske d congregational groups, unions, fraternal or athletic groups, [...] characteri stics were determined by [facility] in a manner co nsistent with CLIA [...] Organization Address City/State/ZIP Code Phon e Number [facility] - [address] [place], [place] [address] [facility] [place] [address] [facility] [address] documented in this encounter Visit Diagnoses Diagnosis Diabetes Mellitus Type 2 (HCC) documented in this encounter Care Teams Drum Dyeing Machine Operator Relationship Specialty Start Date End Date Lexus Fowler M.D., M.P.H. PCP - General 11/14/18 11/13/21 [address] [place] [address] documented as of this encounter
--- OUTSIDE RECORDS SUMMARY | 2022-02-27 08:02 | XMS_ITS | Encounter Summary ---
:1939 Author Organization [facility] Address [address] [place] [address] Care Team Providers Name Role Phone Lexus Fowler M.D., M.P.H. Primary Care Provider [phone] Encounter Details Date Type Department Care Team Description 08/14/2019 Clinical Communication Department of Angi Ricks Orthopedic Surgery in [facility], C.N.P.[place], [place] D.N.P. [address] [place] [address] Social History Tobacco Use Types Packs/Day Years [...] How often do you attend muslim or buddhism services? Patien t refused 10/29/2020 [...] on filedocumented in this encounter Care Teams Mount Loader Relationship Specialty Start Date End Date Lexus Fowler M.D., M.P.H. PCP - General 11/14/18 11/13/21 [address] [place] [address] documented as of this encounter
--- OUTSIDE RECORDS SUMMARY | 2022-02-27 08:02 | XMS_ITS | Encounter Summary ---
:1939 Author Organization [facility] Address [address] [place] [address] Care Team Providers Name Role Phone Lexus Fowler M.D., M.P.H. Primary Care Provider [phone] Reason for Visit Reason Onset Date Comments Med Refill 05/23/2019 Encounter Details Date Type Department Care Team Description 05/23/2019 Refill Department of Family Lexus Fowler M.D., Med Refill Medicine, [facility] M.P .H. brandon Hernandez [facility] [address] [facility] [address] [place] [address] [place] [address] [phone] Social History Tobacco Use Types Packs/Day Years [...] following references were used: nursing clinical judgement [facility] Telephone Encounter - Marshal Martínez R.N. - 05/23/2019 2:13 PM CST Pharmacy was contact to be sure that they received the prescription. They were able to confirm that it was received. HOUSE P[facility]ER Telephone Encounter - Marshal Martínez R.N. - 05/23/2019 1:31 PM CST Lulu, from the patient's pharmacy [facility], called stating that they never received the prescription for Rosuvastatin. The patient is nearly out and needs a refill. [facility] is requesting that a new prescription be sent to them. HOUSE P[facility]ER Telephone Encounter - Shashi Doan - 05/23/2019 12:10 PM CST Caller:Vinayak Call back number:[phone] Name of medication:rosuvastatin (CRESTOR) Strength:10 mg tablet Frequency:Take 1 tablet (10 mg total) by mouth daily Quantity:NA PCP: Malcolm Pharmacy:[facility] documented in this encounter Plan of Treatment Not on filedocumented as of this encounter Visit Diagnoses Diagnosis Hyperlipidemia documented in this encounter Care Teams Water Plant Pump Operator Supervisor Relationship Specialty Start Date End Date Lexus Fowler M.D., M.P.H. PCP - General 11/14/18 11/13/21 [address] [place] [address] documented as of this encounter
--- OUTSIDE RECORDS SUMMARY | 2022-02-27 08:02 | XMS_ITS | Encounter Summary ---
:1939 Author Organization [facility] Address [address] [place] [address] Care Team Providers Name Role Phone Lexus Fowler M.D., M.P.H. Primary Care Provider Encounter Details Date Type Department Care Team Description 03/20/2019 Clinical Communication Department of [facility] Willie [facility], [facility] Alonso Abrams [place], in [address] [place] [address] 411 [facility] [phone] [place] [address] (Work) [phone] Social History Tobacco Use Types Packs/Day Years [...] How often do you attend advent or druze services? Patien t refused 10/29/2020 [...] Vijaya Vargas L.P.N. - 03/20/2019 4:15 PM WOOL BUYER ----- Message from Enedelia Tapia M.D. sent at 03/20/2019 4:09 PM WOOL BUYER ----- Please clarify what medication and use a prescription refill encounter so I can access it. ----- Message ----- From: Vijaya Vargas L.P.N. Sent: 03/17/2019 4:35 PM WOOL BUYER To: Enedelia Tapia M.D. Pended Rx for you to review. Patient states that pharmacy did not receive order sent on 03/10. Please advise. BUYER documented in this encounter Plan of Treatment Not on filedocumented as of this encounter Visit Diagnoses Not on filedocumented in this encounter Care Teams Car Unloader Helper Relationship Specialty Start Date End Date Lexus Fowler M.D., M.P.H. PCP - General 11/14/18 11/13/21 [address] [place] [address] documented as of this encounter
--- OUTSIDE RECORDS SUMMARY | 2022-02-27 08:02 | XMS_ITS | Encounter Summary ---
:1939 Author Organization [facility] Address [address] [place] [address] Care Team Providers Name Role Phone Lexus Fowler M.D., M.P.H. Primary Care Provider [phone] Encounter Details Date Type Department Care Team Description 03/08/2019 Hospital Encounter Department of Kristal Galeana Diabet es Mellitus Laboratory Medicine Alonso Type 2 (HCC) in [address] [address] [phone] Social History Tobacco Use Types Packs/Day Years [...] How often do you attend druze or baptism services? Patien t refused 10/29/2020 [...] [employer] and performed on the [employer] or Zhang system . Values obtained with [...] M.D. LAB BLOOD ADD-ON Performing Organization Address City/[facility] Phon e Number [facility] - [address] [place], [place] [address] [facility] [place] [address] [address] (ABNORMAL) Hemoglobin A1c (03/08/2019 8:40 AM [...] M.D. LAB BLOOD ADD-ON Performing Organization Address City/[facility] [place] [facility] Phon e Number [facility] - 200 [place], [place] [address] [facility] [place] [address] documented in this encounter Visit Diagnoses Diagnosis Diabetes Mellitus Type 2 (HCC) documented in this encounter Care Teams Communications Controller Relationship Specialty Start Date End Date Lexus Fowler M.D., M.P.H. PCP - General 11/14/18 11/13/21 [address] [place] [address] documented as of this encounter
--- OUTSIDE RECORDS SUMMARY | 2022-02-27 08:02 | XMS_ITS | Encounter Summary ---
:1939 Author Organization [facility] Address [address] [place] [address] Care Team Providers Name Role Phone Lexus Fowler M.D., M.P.H. Primary Care Provider [phone] Encounter Details Date Type Department Care Team [...] often do you attend latter day or hinduism services? Patien t refused 10/29/2020 [...] on filedocumented in this encounter Care Teams Dental Cream Maker Relationship Specialty Start Date End Date Lexus Fowler M.D., M.P.H. PCP - General 11/14/18 11/13/21 [address] [place] [address] documented as of this encounter
--- OUTSIDE RECORDS SUMMARY | 2022-02-27 08:02 | XMS_ITS | Encounter Summary ---
:1939 Author Organization [facility] Address [address] [place] [address] Care Team Providers Name Role Phone Lexus Fowler M.D., M.P.H. Primary Care Provider [phone] Reason for Referral Outpatient (Routine) - Closed Specialty Diagnoses / Procedures Referred By Contact Refer red To Contact Orthopedic Surgery Roslyn Veliz APRN, [place] [facility] C.N.P. [address] [place] [address] Referral ID Status Reason Start Date Expiration Date Visits Requ ested Visits Authorized [id number] Closed 10/02/2019 10/01/2020 1 1 Outpatient (Routine) - Closed Specialty Diagnoses / Procedures Referred By Contact Refer red To Contact Vascular Medicine Diagnoses Diabetes Mellitus 2 Ulcer Toe (HCC) Roslyn Veliz APRN, [place] [facility] C.N.P. 200 [place] [address] Referral ID Status Reason Start Date Expiration Date Visits Requ ested Visits Authorized [id number] Closed 10/02/2019 10/01/2020 1 1 Reason for Visit Outpatient (Routine) - Closed Specialty Diagnoses / Procedures Referred By Contact Refer red To Contact Orthopedic Surgery Roslyn Veliz APRN, [place] [facility] C.N.P. 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 Elizabeth t refused 10/29/2020 Do you [...] PRESENT ILLNESS Mr. Vazquez presents to the [facility] for trimming of his dystrophic toenails and paring neurotrophic ulcer/callus. The patient wears New Balance shoes with molded inserts. He states that he getsthese insert from a place out town and that Medicare covers the cost. [facility] During his visit with [...] month. On 07/10/19, he was seen the [facility] in [place] for a infected right great toe callus [...] peripheral neuropathy: [facility] OBJECTIVE PHYSICAL EXAM General: [...] Skin temperature changes: Bilateral feet are warm [place]/calluses: Hyperkeratotic buildup over the right hallux plantar [...] FOOT RIGHT 3+ VIEWS Procedure Note Victor Mnauel Gottlieb M.D. - 10/02/2019Form atting of this [...] 2 With Diabetic N europathy (HCC) Callus [place] Foot Diabetes Mellitus 2 Ulcer Toe (HCC) documented in this encounter Care Teams Manager Database Administration Relationship Specialty Start Date End Date Lexus Fowler M.D., M.P.H. PCP - General 11/14/18 11/13/[address] [place] [address] documented as of this encounter
--- OUTSIDE RECORDS SUMMARY | 2022-02-27 08:02 | XMS_ITS | Encounter Summary ---
:1939 Author Organization [facility] Address [address] [place] [address] Care Team Providers Name Role Phone Lexus Fowler M.D., M.P.H. Primary Care Provider [phone] Reason for Visit Reason Comments Triage Encounter Details Date Type Department Care Team Description 08/16/2019 Clinical Communication Department of Vascular Jaelyn Varela[facility] [address] [address] [phone] Social History Tobacco Use Types Packs/Day Years [...] How often do you attend restorationism or mormonism services? Patien t refused 10/29/2020 [...] foot ulcer Notes: ortho is referring Saulo [phone] Please route all to the [facility] SCHEDULING pool upon response to this message. documented in this encounter Plan of Treatment Not on filedocumented as of this encounter Visit Diagnoses Not on filedocumented in this encounter Care Teams Skeins Yarn Examiner Relationship Specialty Start Date End Date Lexus Fowler M.D., M.P.H. PCP - General 11/14/18 11/13/21 [address] [place] [address] documented as of this encounter
--- OUTSIDE RECORDS SUMMARY | 2022-02-27 08:02 | XMS_ITS | Encounter Summary ---
:1939 Author Organization [facility] Address [address] [place] [address] Care Team Providers Name Role Phone Kristal Galeana M.D. Primary Care Provider Encounter Details Date Type Department Care Team Description 09/13/2018 Clinical Communication Department of Kushal Casas, Medicine, [facility] [address] [place] [address] 411 [facility] [address] [place] [address] Social History Tobacco Use Types Packs/Day Years [...] How often do you attend quaker or alevism services? Patien t refused 10/29/2020 [...] How to Create a patientOnline Service Account DipJar [phone] which has the helpline # for patients [...] filedocumented in this encounter Care Teams Supervisor Fertilizer Processing Relationship Specialty Start Date End Date Kervin, Kristal M, M.D. PCP - General Family Medicine 01/19/18 11/13/18 documented as of this encounter
--- OUTSIDE RECORDS SUMMARY | 2022-02-27 08:02 | XMS_ITS | Encounter Summary ---
:1939 Author Organization [facility] Address [address] [place] [address] Care Team Providers Name Role Phone Lexus Fowler M.D., M.P.H. Primary Care Provider [phone] Encounter Details Date Type Department Care Team Description 03/17/2019 Medication Department of Lexus Fowler on Management Family MedicineMaikol M.D., M.P.H. Essential Primary [facility] [address] [place] [address] [address] [facility] [phone] [place], [place] (Work) [address] Social History Tobacco Use [...] How often do you attend muslim or druze services? Patien t refused 10/29/2020 [...] Primary documented in this encounter Care Teams Associate Professor Of Counseling Relationship Specialty Start Date End Date Lexus Fowler M.D., M.P.H. PCP - General 11/14/18 11/13/21 [address] [place] [address] documented as of this encounter
--- OUTSIDE RECORDS SUMMARY | 2022-02-27 08:02 | XMS_ITS | Encounter Summary ---
:1939 Author Organization [facility] Address [address] [place] [address] Care Team Providers Name Role Phone Lexus Fowler M.D., M.P.H. Primary Care Provider [phone] Encounter Details Date Type Department Care Team Description 03/10/2019 Hospital Encounter Department of Lexus Fowler rtension Laboratory Medicine Alonso Lassiter, M.P .H. Essential Primary in [address] 411 [facility] [address] [place], [place] [phone] [phone] (Work) [phone] Social History Tobacco Use Types Packs/Day Years [...] How often do you attend confucianist or rastafari services? Patien t refused 10/29/2020 [...] Neuropathy times a day. ([facility]) [employer] ULTRA BLUE TEST daily. for 3 01/07/2018 [...] CDT eGFR-Black/Afric 63 >=60 03/10/2019 [facility] an [place] mL/min/BSA 11:18 AM CDT Comment: ----ADDITIONAL INFORMATION---- Estimated GFR calculated using the 2009 CKD_EPI creatinine equation. eGFR Non-Black/ 54 (L) >=60 mL/min/BSA 03/10/2019 11:18 AM CDT [facility] [place] Comment: ----ADDITIONAL INFORMATION---- Estimated GFR calculated using the 2009 CKD_EPI creatinine equation. Specimen Anatomical Collection Method Collection Time Receive d Time (Source) Location / / Volume Laterality Blood (Blood, 03/10/2019 10:44 03/10/2019 Venous) AM CDT 10:44 AM CDT Lexus Fowler M.D., M.P.H. LAB BLOOD ADD-ON Performing Organization Address City/[facility]/ZIP Code Phon e Number [facility] [address] [place] [address] [place] [address] 411 [facility] Sodium (03/10/2019 10:44 AM CDT) P athologist Signature Sodium, P 139 135 - 145 03/10/2019 [facility] mmol/L 11:18 AM CDT Specimen Anatomical Collection Method Collection Time Receive d Time (Source) Location / / Volume Laterality Blood (Blood, 03/10/2019 10:44 03/10/2019 Venous) AM CDT 10:44 AM CDT Lexus Fowler M.D., M.P.H. LAB BLOOD ADD-ON Performing Organization Address City/[facility]/ZIP Code Phon e Number [facility] [address] [place] [address] [place], [place] [phone] [place] [address] Potassium (03/10/2019 10:44 AM CDT) P athologist Signature Potassium, P 4.8 3.6 - 5.2 03/10/2019 [facility] mmol/L 11:18 AM CDT Specimen Anatomical Collection Method Collection Time Receive d Time (Source) Location / / Volume Laterality Blood (Blood, 03/10/2019 10:44 03/10/2019 Venous) AM CDT 10:44 AM CDT Lexus Fowler M.D., M.P.H. LAB BLOOD ADD-ON Performing Organization Address City/[facility]/ZIP Code Phon e Number [facility] [address] [place] [address] [place] [address] 411 [facility] documented in this encounter Visit Diagnoses Diagnosis Hypertension Essential Primary documented in this encounter Care Teams Rock Loader Relationship Specialty Start Date End Date Lexus Fowler M.D., M.P.H. PCP - General 11/14/18 11/13/21 [address] [place] [address] documented as of this encounter
--- OUTSIDE RECORDS SUMMARY | 2022-02-27 08:02 | XMS_ITS | Encounter Summary ---
:1939 Author Organization [facility] Address [address] [place] [address] Care Team Providers Name Role Phone Lexus Fowler M.D., M.P.H. Primary Care Provider Reason for Referral Outpatient (Routine) - Closed Specialty Diagnoses / Procedures Referred By Contact Refer red To Contact Orthopedic Surgery [facility] [place] 200 [place] [address] Referral ID Status Reason Start Date Expiration Date Visits Requ ested Visits Authorized [id number] Closed 03/06/2019 03/05/2020 1 1 Reason for Visit Outpatient (Routine) - Closed Specialty Diagnoses / Procedures Referred By Contact Refer red To Contact Orthopedic Surgery Roslyn Veliz APRN, [facility] C.N.PClarence [address] [place] [address] Referral ID Status Reason Start Date Expiration Date Visits Requ ested Visits Authorized [id number] Closed 12/12/2018 12/12/2019 1 1 Encounter Details Date Type Department Care Team Description 03/06/2019 Procedure visit Department of Adan Mosquera orn Foot (Primary Dx); Orthopedic Surgery in [place] Irby Dystro phic Toenail; [place], [place] Diabetes Mellitus Type 2 Wit h Diabetic Neuropathy (HCC) [address] [place] [phone] Social History Tobacco Use Types Packs/Day Years [...] How often do you attend jainism or tenriism services? Patien t refused 10/29/2020 [...] for the very basics like Not h oscra at all 10/29/2020 food, housing, medical care, [...] REFERRAL INFORMATION Roslyn Veliz, ALEN, C.N.P. [address] [place] [phone] CHIEF COMPLAINT/REASON FOR VISIT Callus paring, right [...] pain: 0/10. ASSESSMENT / PLAN #1 Callus [place] Foot #2 Dystrophic Toenail #3 Diabetes Mellitus [...] mid August 2019 after he returns from [place], [place]. 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 PCP - General 11/14/18 11/13/21 [address] [place] [address] documented as of this encounter
--- OUTSIDE RECORDS SUMMARY | 2022-02-27 08:02 | XMS_ITS | Encounter Summary ---
:1939 Author Organization [facility] Address [address] [place] [address] Care Team Providers Name Role Phone Lexus Fowler M.D., M.P.H. Primary Care Provider Reason for Referral Outpatient (Routine) - Closed Specialty Diagnoses / Procedures Referred By Contact Refer red To Contact Family Medicine Lexus Fowler M.D., [facility] M.P.H. [address] [place] [phone] Referral ID Status Reason Start Date Expiration Date Visits Requ ested Visits Authorized [id number] Closed 09/25/2019 09/24/2020 1 1 Encounter Details Date Type Department Care Team Description 09/25/2019 Orders Only Department of [facility] Lexus Fowler, Diabetes Mellitus Medicine, [facility] Alonso, M.P. H. Type 2 With Diabetic Clinic [place], in [address] [place] [address] Neuropathy (HCC) [place], [place] (Primary Dx) [address] [facility] [address] [place] [address] [phone] Social History Tobacco Use Types Packs/Day Years [...] How often do you attend mandaeism or lutheran services? Patien t refused 10/29/2020 Do you belong to any clubs or organizations such as Nabil borrero mandaeism groups, unions, fraAveksa or athletic groups, or school groups? How [...] Name Type Priority Associated Diagnoses Order S [facility] Medicine Outpatient Referral Routine Expec margoth: [...] 20 Venous) CDT 12:35 PM CDT Lexus Fwoler M.D., M.P.H. 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 PCP - General 11/14/18 11/13/[address] [place] [address] documented as of this encounter
--- OUTSIDE RECORDS SUMMARY | 2022-02-27 08:02 | XMS_ITS | Encounter Summary ---
:1939 Author Organization [facility] Address [address] [place] [address] Care Team Providers Name Role Phone Kristla Galeana M.D. Primary Care Provider Reason for Visit Reason Comments Diabetic Eye Exam Appointment Request (Routine) - Closed Specialty Diagnoses / Procedures Referred By Contact Refer red To Contact Ophthalmology Referral ID Status Reason Start Date Expiration Date Visits Requ ested Visits Authorized [id number] Closed 07/05/2018 07/05/2019 1 1 Encounter Details Date Type Department Care Team Description 09/13/2018 Comprehensive Visit Department of Aranza Michaels [facility] Ophthalmology in [place], [facility] Scl erosis [place], [place] O.D. Bilateral (Primary [address] [place] 200 [facility] Dx) [place] [address] [phone] Social History Tobacco Use Types Packs/Day Years [...] How often do you attend religious or scientology services? Elizabeth calvillo refused 10/29/2020 Do you [...] Primary documented in this encounter Care Teams Lab Clerk Relationship Specialty Start Date End Date Kristal Galeana M.D. PCP - General Family Medicine 01/19/18 11/13/18 documented as of this encounter
--- OUTSIDE RECORDS SUMMARY | 2022-02-27 08:02 | XMS_ITS | Encounter Summary ---
:1939 Author Organization [facility] Address [address] [place] [address] Care Team Providers Name Role Phone Lexus Fowler M.D., M.P.H. Primary Care Provider [phone] Reason for Visit Reason Comments Med Refill Encounter Details Date Type Department Care Team Description 05/12/2019 Refill Department of [facility] Kasi Alvarez M.D. Med Refill Medicine, [facility] [address] [place] [address] [place] [address] 411 [facility] [address] [phone] Social History Tobacco Use Types Packs/Day Years [...] How often do you attend christian or zoroastrian services? Patien t refused 10/29/2020 Do you belong to any clubs or organizations such as Not aske d christian groups, unions, fraternal or athletic groups, [...] Hyperlipidemia documented in this encounter Care Teams Development Assistant Relationship Specialty Start Date End Date Lexus Fowler M.D., M.P.H. PCP - General 11/14/18 11/13/21 [address] [place] [address] documented as of this encounter
--- OUTSIDE RECORDS SUMMARY | 2022-02-27 08:02 | XMS_ITS | Encounter Summary ---
:1939 Author Organization [facility] Address [address] [place] [address] Care Team Providers Name Role Phone Lexus Fowler M.D., M.P.H. Primary Care Provider [phone] Reason for Visit Reason Onset Date Comments Med Refill Med Refill 05/23/2019 Encounter Details Date Type Department Care Team Description 05/23/2019 Refill Department of [facility] Med Alvarez, Med Refill; Med Refill Medicine, [facility] Alonso [facility], in [address] [place] [address] 411 [address] [facility] [address] [place] [address] [phone] Social History Tobacco Use Types Packs/Day Years [...] How often do you attend holiness or episcopalian services? Patien t refused 10/29/2020 [...] Hyperlipidemia documented in this encounter Care Teams Search Engineer Relationship Specialty Start Date End Date Lexus Fowler M.D., M.P.H. PCP - General 11/14/18 11/13/21 [address] [place] [address] documented as of this encounter
--- OUTSIDE RECORDS SUMMARY | 2022-02-27 08:02 | XMS_ITS | Encounter Summary ---
:1939 Author Organization [facility] Address [address] [place] [address] Care Team Providers Name Role Phone Lexus Fowler M.D., M.P.H. Primary Care Provider [phone] Reason for Visit Reason Comments COVID Nurse Line Encounter Details Date Type Department Care Team Description 09/30/2019 Clinical Communication Department of Roslyn Veliz CO VID Nurse Line Orthopedic Surgery BATCH MIXER OPERATOR, C.N.P. in [place], [facility] [address] [place], [place] [address] [place] [address] [place], [place] [phone] [address] (Work) [phone] Social History Tobacco Use Types Packs/Day Years [...] How often do you attend pentecostal or scientology services? Patien t refused 10/29/2020 [...] filedocumented in this encounter Care Teams It Instructor Relationship Specialty Start Date End Date Lexus Fowler M.D., M.P.H. PCP - General 11/14/18 11/13/21 [address] [place] [address] documented as of this encounter
--- OUTSIDE RECORDS SUMMARY | 2022-02-27 08:02 | XMS_ITS | Encounter Summary ---
:1940 Author Organization [facility] Address [address] [place] [address] Care Team Providers Name Role Phone Lexus Fowler M.D., M.P.H. Primary Care Provider [phone] Reason for Referral Outpatient (Routine) - Closed Specialty Diagnoses / Procedures Referred By Contact Refer red To Contact Orthopedic Surgery Roslyn Veliz APRN, [place] C.N.P. [address] [place] [phone] Referral ID Status Reason Start Date Expiration Date Visits Requ ested Visits Authorized [id number] Closed 12/12/2018 12/12/2019 1 1 Reason for Visit Outpatient (Routine) - Closed Specialty Diagnoses / Procedures Referred By Contact Refer red To Contact Orthopedic Surgery Roslyn Veliz APRN, [place] C.N.P. [address] [place] [phone] Referral ID Status Reason Start Date Expiration Date Visits Requ ested Visits Authorized [id number] Closed 10/03/2018 10/03/2019 1 1 Encounter Details Date Type Department Care Team Description 12/12/2018 Procedure visit Department of Roslyn Veliz Dystrophi c Toenail; Orthopedic Surgery in [place], C.N. P. 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 Patien t refused 10/29/2020 [...] calluses and is under the care of Lxeus Fowler M.D., M.P.H.. HISTORY OF PRESENT ILLNESS Mr. Vazquez accompanied by his presents to the [facility] for trimming of his dystrophic toenails and paring a pre ulcerative callus. The patient wears New Balance shoes with molded inserts. He states that he gets these insert from a place out town and that Medicare covers the cost. He has had custom inserts from [employer] in the past. His past medical history [...] Skin temperature changes: Bilateral feet are warm [place]/calluses: Hyperkeratotic buildup over the right hallux plantar [...] 2 With Diabetic N europathy (HCC) Callus [place] Foot documented in this encounter Care Teams Babcock Tester Relationship Specialty Start Date End Date Lexus Fowler M.D., M.P.H. PCP - General 11/14/18 11/13/21 [address] [place] [address] documented as of this encounter
--- OUTSIDE RECORDS SUMMARY | 2022-02-27 08:02 | XMS_ITS | Encounter Summary ---
:1940 Author Organization [facility] Address [address] [place] [address] Care Team Providers Name Role Phone Lexus Fowler M.D., M.P.H. Primary Care Provider [phone] Reason for Referral Outpatient (Routine) - Closed Specialty Diagnoses / Procedures Referred By Contact Refer red To Contact Lexus Fowler M.D., M.P.H. [facility] [address] [place] [phone] Referral ID Status Reason Start Date Expiration Date Visits Requ ested Visits Authorized [id number] Closed 09/28/2019 09/27/2020 1 1 utpatient (Routine) - Closed Specialty Diagnoses / Procedures Referred By Contact Refer red To Contact Lexus Kern M.D.[facility] M.[facility] [address] [place] [phone] Referral ID Status Reason Start Date Expiration Date Visits Requ ested Visits Authorized [id number] Closed 09/28/2019 09/27/2020 1 1 Reason for Visit Reason Comments Diabetes Hypertension Outpatient (Routine) - Closed Specialty Diagnoses / Procedures Referred By Contact Refer red To Contact Lexus Kern M.D., Jesus Owusu M.P.H. [address] [place] [address] Referral ID Status Reason Start Date Expiration Date Visits Requ ested Visits Authorized [id number] Closed 09/25/2019 09/24/2020 1 1 Encounter Details Date Type Department Care Team Description 09/28/2019 Office Visit Department of Family Lexus Fowler, Diabetes Mellitus Type 2 With Diabetic Neuropathy (HCC) (Primary Dx); Medicine, Estiven Gupta, M.P.H. Hypertension [facility] [address] [facility] [phone] [facility] [place] [address] Social History Tobacco Use Types [...] How often do you attend judaism or hoahaoism services? Patien t refused 10/29/2020 [...] November, and hewill get this done in [place]. Denies numbness or tingling in his feet. Reports that he regularly sees a wiring inspector, and infective seeing his normal wiring inspector tomorrow, he typically sees her every month [...] auscultation bilaterally, no wheezing, crackles, rales Skin: [place] and well perfused ASSESSMENT / PLAN #1 [...] - Primary Care nurse visit (clinic) - [facility]; Immunization; Future; Expected date: 09/28/2019 Associated [...] I encouraged him to continue these healthy [place]. 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 PCP - General 11/14/18 11/13/[address] [place] [address] documented as of this encounter
--- OUTSIDE RECORDS SUMMARY | 2022-02-27 08:03 | XMS_ITS | Encounter Summary ---
:1940 [address] [facility] Address [address] [place] [address] Care Team Providers Name Role Phone Elsewhere, Pcp Primary Care Provider Unavailable Encounter Details Date Type Department Care Team Description 09/21/2014 Historical Ophthalmology RST OPH Kasiaing Genet Cordero O.D. [address] [place], [place] [phone] (Wo rk) Social History [...] How often do you attend baptism or sikhism services? Patien t refused 10/29/2020 [...] visually significant. CDM Reports - EYEGEN Id: [id number] Status: Fnl documented in this encounter Plan of Treatment Not on filedocumented as of this encounter Visit Diagnoses Not on filedocumented in this encounter Care Teams Nurse Practical Relationship Specialty Start Date End Date Elsewhere, Pcp PCP - General Internal Medicine 02/04/22 documented as of this encounter
--- OUTSIDE RECORDS SUMMARY | 2022-02-27 08:03 | XMS_ITS | Encounter Summary ---
:1940 Author Organization [facility] Address [address] [place] [address] Care Team Providers Name Role Phone Reuben Cavazos Primary Care Provider Unavailable Reason for Referral Outpatient (Routine) - Closed Specialty Diagnoses / Procedures Referred By Contact Refer red To Contact Orthopedic Surgery Roslyn Veliz APRN, [place] C.N.PClarence [address] [place] [phone] Referral ID Status Reason Start Date Expiration Date Visits Requ ested Visits Authorized [id number] Closed 10/13/2017 10/13/2018 1 1 Encounter Details Date Type Department Care Team Description 10/13/2017 Procedure visit Department of Roslyn Veliz Callus Co rn Foot (Primary Dx); Orthopedic Surgery in [place] C.N. 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 Patien t refused 10/29/2020 [...] PRESENT ILLNESS Mr. Vazquez presents to the [facility] with calluses on bilateral [...] Diabetes Mellitus Type 2 (HCC) #2 Callus [place] Foot #3 Hyperlipidemia #4 Hypertension #5 Diabetes [...] pain. 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 PCP - General Family Medicine 11/19/14 11/12/17 documented as of this encounter
--- OUTSIDE RECORDS SUMMARY | 2022-02-27 08:03 | XMS_ITS | Encounter Summary ---
:1940 Author Organization [facility] Address [address] [place] [address] Care Team Providers Name Role Phone Kristal Galeana M.D. Primary Care Provider Reason for Referral Outpatient (Routine) - Closed Specialty Diagnoses / Procedures Referred By Contact Refer red To Contact Orthopedic Surgery Roslyn Veliz APRN, [place] C.N.P. [address] [place] [phone] Referral ID Status Reason Start Date Expiration Date Visits Requ ested Visits Authorized [id number] Closed 03/10/2018 03/10/2019 1 1 Reason for Visit Outpatient (Routine) - Closed Specialty Diagnoses / Procedures Referred By Contact Refer red To Contact Orthopedic Surgery Roslyn Veliz APRN, [place] C.N.P. [address] [place] [phone] Referral ID Status Reason Start Date Expiration Date Visits Requ ested Visits Authorized [id number] Closed 01/13/2018 01/13/2019 1 1 Encounter Details Date Type Department Care Team Description 03/10/2018 Procedure visit Department of Roslyn Veliz Callus Co rn Foot; Orthopedic Surgery in [place] C.N. P. 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 Patien t refused 10/29/2020 [...] PRESENT ILLNESS Mr. 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 PCP - General Family Medicine 01/19/18 11/13/18 documented as of this encounter
--- OUTSIDE RECORDS SUMMARY | 2022-02-27 08:03 | XMS_ITS | Encounter Summary ---
:1940 Author Organization [facility] Address [address] [place] [address] Care Team Providers Name Role Phone Reuben [...] How often do you attend yarsanism or jain services? Patien t refused 10/29/2020 Do you belong to any clubs or organizations such as Not maye gissell yarsanism groups, unions, fraternal or athletic groups, [...] on filedocumented in this encounter Care Teams Compliance Review Specialist Relationship Specialty Start Date End Date Reuben Cavazos B.M.B.S. PCP - General Family Medicine 11/19/14 11/12/17 documented as of this encounter
--- OUTSIDE RECORDS SUMMARY | 2022-02-27 08:03 | XMS_ITS | Encounter Summary ---
:1940 Author Organization [facility] Address [address] [place] [address] Care Team Providers Name Role Phone Elsewhere, Pcp Primary Care Provider Unavailable Encounter Details Date Type Department Care Team Description 11/11/2015 Historical Ophthalmology RST OPH Dharmesh Lopez O.D. [address] [place], [place] [address] (Wo rk) Social History [...] How often do you attend hindu or adventism services? Patien t refused 10/29/2020 Do you belong to any clubs or organizations such as Not jelani borrero hindu groups, unions, fraternal or athletic [...] visually significant. CDM Reports - EYEGEN Id: [id number] Status: Fnl documented in this encounter Plan of Treatment Not on filedocumented as of this encounter Visit Diagnoses Not on filedocumented in this encounter Care Teams Silk Screen Processor Relationship Specialty Start Date End Date Elsewhere, Pcp PCP - General Internal Medicine 02/04/22 documented as of this encounter
--- OUTSIDE RECORDS SUMMARY | 2022-02-27 08:03 | XMS_ITS | Encounter Summary ---
:1940 Author Organization [facility] Address [address] [place] [address] Care Team Providers Name Role Phone Kristal Galeana M.D. Primary Care Provider Encounter Details Date Type Department Care Team Description 02/28/2018 Hospital Encounter Department of Reuben Cavazos Essential Primary; Laboratory Medicine P, B.M.B.S. Diabetes Mellitus Type 2 (HCC); in [place], [place] General Medical Examination Adult [address] [place] [address] Social History Tobacco Use Types [...] often do you attend roman catholic or sabianist services? Patien t refused 10/29/2020 [...] CDT) athologist Signature Prostate-Speci 0.98 <=6.5 02/28/2018 [facility] fic Ag ng/mL 2:29 PM CDT LABORATORIES - [facility] Comment: ----ADDITIONAL INFORMATION---- The testing [...] Organization Address City/State/ZIP Code Phon e Number [facility] - [address] [place], [place] [address] [facility] Sodium (02/28/2018 7:58 AM CDT) athologist Signature Sodium, P 136 135 - 145 02/28/2018 [facility] mmol/L 9:11 AM [facility] Specimen Anatomical Collection Method Collection Time Receive d Time (Source) Location / / Volume Laterality Blood (Blood, 02/28/2018 7:58 AM 02/29/20 7:58 Venous) CDT AM CDT Kristal Galeana M.D. LAB BLOOD ADD-ON Performing Organization Address City/[facility] Code Phon e Number [facility] [address] [place] [address] Creatinine with Estimated GFR (02/28/2018 7:58 AM CDT) athologist Signature Creatinine 1.09 0.74 - 02/28/2018 [facility] 1.35 mg/dL 9:11 AM [facility] eGFR-Black/Afri 75 >=60 02/28/2018 [facility] can Bruneian mL/min/BSA 9:11 AM [facility] Comment: ----ADDITIONAL INFORMATION---- Estimated GFR calculated using the 2009 CKD_EPI creatinine equation. eGFR Non-Black/ 65 >=60 mL/min/BSA 02/28/2018 9:11 AM [facility] Comment: ----ADDITIONAL INFORMATION---- Estimated GFR calculated using the 2009 CKD_EPI creatinine equation. Specimen Anatomical Collection Method Collection Time Receive d Time (Source) Location / / Volume Laterality Blood (Blood, 02/28/2018 7:58 AM 02/29/20 18 7:58 Venous) CDT AM CDT Kristal Galeana M.D. LAB BLOOD ADD-ON Performing Organization Address City/[facility]/ZIP Code Phon e Number [facility] [address] [place] [address] (ABNORMAL) Hemoglobin A1c (02/28/2018 7:58 AM CDT) [facility] Method Time Signature Hemoglobin A1c, 6.7 (H) 4.0 - 5.6 02/28/2018 [facility] B % 1:36 PM CDT LABORATORIES - [facility] Comment: Hemoglobin A1c values greater [...] Organization Address City/State/ZIP Code Phon e Number [facility] - [address] [facility] [address] [place], [place] [address] [facility] Potassium (02/28/2018 7:58 AM CDT) P athologist Signature Potassium, P 4.3 3.6 - 5.2 02/28/2018 [facility] mmol/L 9:11 AM CDT [facility] Specimen Anatomical Collection Method Collection Time Receive d Time (Source) Location / / Volume Laterality Blood (Blood, 02/28/2018 7:58 AM 02/29/20 18 7:58 Venous) CDT AM CDT Kristal Galeana M.D. LAB BLOOD ADD-ON Performing Organization Address City/State/ZIP Code [facility]on [facility] Number [facility] [address] [place] [address] documented in this encounter Visit Diagnoses Diagnosis Hypertension Essential Primary Diabetes Mellitus Type 2 (HCC) General Medical Examination Adult documented in this encounter Care Teams Field Sales Manager Relationship Specialty Start Date End Date Kristal Galeana M.D. PCP - General Family Medicine 01/19/18 11/13/18 documented as of this encounter
--- OUTSIDE RECORDS SUMMARY | 2022-02-27 08:03 | XMS_ITS | Encounter Summary ---
:1940 Author Organization [facility] Address [address] [place] [address] Care Team Providers Name Role Phone Kristal Galeana M.D. Primary Care Provider Reason for Visit Reason Onset Date Comments question 03/04/2018 Encounter Details Date Type Department Care Team Description 03/04/2018 Clinical Communication Department of Maikol Loredo question Medicine, [place] [facility] Jj M.D. [place], in [address] [place] [address] 411 [facility] [phone] [place] [address] [phone] Social History Tobacco Use Types Packs/Day Years [...] on filedocumented in this encounter Care Teams Voice Writing Reporter Relationship Specialty Start Date End Date Kristal Galeana M.D. PCP - General Family Medicine 01/19/18 11/13/18 documented as of this encounter
--- OUTSIDE RECORDS SUMMARY | 2022-02-27 08:03 | XMS_ITS | Encounter Summary ---
:1940 Author Organization [facility] Address [address] [place] [address] Care Team Providers Name Role Phone Unavailable [...] often do you attend roman catholic or latter day services? Elizabeth t refused 10/29/2020 Do you [...] Results Glucose, POCT (12/27/2013 12:13 PM CDT) [facility] Method Time Signature Last Intake 3-4 hours [facility] Glucose, 136 70 - 140 [facility] POCT, B MG/DL LABORATORIES - [facility] Sample Site, Capillary [facility] Blood Gas, LABORATORIES - POCT [facility] Specimen Anatomical Collection Method Collection Time Receive d Time (Source) Location / / Volume Laterality 12/27/2013 12:13 12/27/2013 PM CDT 12:13 PM CDT Historical Provider LAB POCT ORDERABLES-MANUAL Performing Organization Address City/[facility]/ZIP Code Phon e Number [facility] - [address] [place] [address] 05 [facility] Glucose, POCT (12/27/2013 6:21 AM CDT) P athologist Signature Glucose, POCT, 131 70 - 140 [facility] B MG/DL [facility]IES - [facility] Specimen Anatomical Collection Method Collection Time Receive d Time (Source) Location / / Volume Laterality 12/27/2013 6:21 AM 4 6:21 CDT AM CDT Historical Provider LAB POCT ORDERABLES-MANUAL Performing Organization Address City/[facility] Phon e Number [facility] - [address] [phone] 05 [facility] (ABNORMAL) Glucose, POCT (12/26/2013 9:46 PM CDT) Patholo gist Method Time Signature Glucose, 163 (H) 70 - 140 [facility] POCT, B MG/DL LAB[facility]ATORIES - [facility] Sample Site, Capillary [facility] Blood Gas, LABORATORIES - POCT [facility] Last Intake 3-4 hours [facility] - [facility] Specimen Anatomical Collection Method Collection Time Receive d Time (Source) Location / / Volume Laterality 12/26/2013 9:46 PM 4 9:46 CDT PM CDT Historical Provider LAB POCT ORDERABLES-MANUAL Performing Organization Address City/[facility] Phon e Number [facility] - [address] [address] [facility] (ABNORMAL) Glucose, POCT (12/26/2013 5:12 PM CDT) Patholo gist Method Time Signature Glucose, POCT, 163 (H) 70 - 140 [facility] B MG/DL [facility] - [facility] Specimen Anatomical Collection Method Collection Time Receive d Time (Source) Location / / Volume Laterality 12/26/2013 5:12 PM 4 5:12 CDT PM CDT Historical Provider LAB POCT ORDERABLES-MANUAL Performing Organization Address City/[facility]/ZIP Code Phon e Number [facility] - [address] [address] [facility] (ABNORMAL) Glucose, POCT (12/26/2013 12:02 PM CDT) [facility] gist Method Time Signature Glucose, 147 (H) 70 - 140 [facility] POCT, B MG/DL [facility]ATORIES - [facility] Sample Site, Capillary [facility] Blood Gas, LABORATORIES - POCT [facility] Last Intake 3-4 hours [facility] Specimen Anatomical Collection Method Collection Time Receive d Time (Source) Location / / Volume Laterality 12/26/2013 12:02 12/26/2013 PM CDT 12:02 PM CDT Historical Provider LAB POCT ORDERABLES-MANUAL Performing Organization Address City/[facility]/ZIP Code Phon e Number [facility] - [address] [phone] [facility] Glucose, POCT (12/26/2013 6:20 AM CDT) P athologist Signature Glucose, POCT, 115 70 - 140 [facility] B MG/DL [facility] - [facility] Specimen Anatomical Collection Method Collection Time Receive d Time (Source) Location / / Volume Laterality 12/26/2013 6:20 AM 4 6:20 CDT AM CDT Historical Provider LAB POCT ORDERABLES-MANUAL Performing Organization Address City/[facility]/ZIP Code Phon e Number [facility] - [address] [phone] [facility] (ABNORMAL) Hemoglobin A1c (12/26/2013 4:18 AM CDT) [facility] gist Method Time Signature Hemoglobin A1c, 6.4 (H) 4.0 - 6.0 [facility] B % LABORATORIES - [facility] Specimen Anatomical Collection Method Collection Time Receive d Time (Source) Location / / Volume Laterality 12/26/2013 4:18 AM 4 4:18 CDT AM CDT Rene Warren P.A.-C. LAB BLOOD ADD-ON Performing Organization Address City/[facility]/ZIP [facility] Phon e Number [facility] - [address] [phone] [facility] (ABNORMAL) CBC without Differential (12/26/2013 4:18 AM CDT) Patholo gist Method Time Signature Erythrocytes 4.38 4.32 - [facility] 5.72 LABORATORIES - X10(12)/L [facility] MCV 85.2 81.2 - [facility] 95.1 FL LABORATORIES - [facility] Leukocytes 7.7 3.5 - [facility] 10.5 LABORATORIES - X10(9)/L [facility] Hemoglobin 12.9 (L) 13.5 - [facility] 17.5 G/DL LABORATORIES - [facility] Hematocrit 37.3 (L) 38.8 - [facility] 50.0 % LABORATORIES - [facility] RBC Distrib 13.5 11.8 - [facility] Width 15.6 % [facility] Platelet Count 180 150 - 450 [facility] X10(9)/L [facility] Specimen Anatomical Collection Method Collection Time Receive d Time (Source) Location / / Volume Laterality 12/26/2013 4:18 AM 4 4:18 CDT AM CDT Rene [facility] P.A.-C. LAB BLOOD ADD-ON Performing Organization Address City/State/ZIP Code Phon e Number [facility] - [address] [place], [place] [address] [facility] Electrolyte (Chem 4) Panel (12/26/2013 4:18 AM CDT) Analysis Performed At [facility] logist Time Signature Chloride, S 100 98 - 107 [facility] MMOL/L [facility] - [facility] HX Bicarbonate, 25 22 - 29 [facility] P/S MMOL/L LABORATORIES - [facility] Anion Gap 12 7 - 15 [facility] - [facility] Glucose, S 108 70 - 140 [facility] MG/DL [facility] Sodium, S 137 135 - 145 [facility] MMOL/L [facility] - [facility] Potassium, S 4.0 3.6 - 5.2 [facility] MMOL/L [facility] - [facility] Creatinine 1.0 0.8 - 1.3 [facility] MG/DL [facility] - [facility] BUN (Blood Urea 13 8 - 24 [facility] Nitrogen), S MG/DL [facility] Specimen Anatomical Collection Method Collection Time Receive d Time (Source) Location / / Volume Laterality 12/26/2013 4:18 AM 4 4:18 CDT AM CDT Rene [facility] P.A.-C. LAB BLOOD ADD-ON Performing Organization Address City/[facility]/ZIP Code Phon e Number [facility] - [address] [phone] [facility] (ABNORMAL) Glucose, POCT (12/25/2013 9:56 PM CDT) [facility] Method Time Signature Glucose, 170 (H) 70 - 140 [facility] POCT, B MG/DL LAB[facility]ATORIES - [facility] Sample Site, Capillary [facility] Blood Gas, LABORATORIES - POCT [facility] Last Intake 3-4 hours [facility] Specimen Anatomical Collection Method Collection Time Receive d Time (Source) Location / / Volume Laterality 12/25/2013 9:56 PM 4 9:56 CDT PM CDT Historical Provider LAB POCT ORDERABLES-MANUAL Performing Organization Address City/[facility]/ZIP [facility] Phon e Number [facility] - [address] [phone] [facility] Glucose, POCT (12/25/2013 5:14 PM CDT) [facility] Method [place] Signature Glucose, 113 70 - 140 [facility] POCT, B MG/DL LAB[facility]ATORIES - [facility] Sample Site, Capillary [facility] Blood Gas, LABORATORIES - POCT [facility] Last Intake 2-3 hours [facility] Specimen Anatomical Collection Method Collection Time Receive d Time (Source) Location / / Volume Laterality 12/25/2013 5:14 PM 4 5:14 CDT PM CDT Historical Provider LAB POCT ORDERABLES-MANUAL Performing Organization Address City/[facility]/ZIP [facility] Phon e Number [facility] - [address] [phone] [facility] Glucose, POCT (12/25/2013 11:51 AM CDT) [facility] Method Time Signature Glucose, 129 70 - 140 [facility] POCT, B MG/DL LABORATORIES - [facility] Sample Site, Capillary [facility] Blood Gas, LABORATORIES - POCT [facility] Last Intake NPO [facility] Specimen Anatomical Collection Method Collection Time Receive d Time (Source) Location / / Volume Laterality 12/25/2013 11:51 12/25/2013 AM CDT 11:51 AM CDT Historical Provider LAB POCT ORDERABLES-MANUAL Performing Organization Address City/State/ZIP Code Phon e Number [facility] - [address] [place], [place] [address] [facility] DX Knee 2 Views (12/25/2013 10:53 AM [...] Right Knee 2vw AP/Lat: Procedure Note Aric Mliler M.D. - 08/13/2017Formatt ing of this note [...] Signature Glucose, POCT, 124 70 - 140 [facility] B MG/DL [facility] - [facility] Specimen Anatomical Collection Method Collection Time Receive d Time (Source) Location / / Volume Laterality 12/25/2013 10:46 12/25/2013 AM CDT 10:46 AM CDT Historical Provider LAB POCT ORDERABLES-MANUAL Performing Organization Address City/State/ZIP Code Phon e Number [facility] - [address] [place], [place] [address] [facility] Glucose, POCT (12/25/2013 9:20 AM CDT) [facility] Method Time Signature Glucose, 124 70 - 140 [facility] POCT, B MG/DL [facility]ATOR[facility] - [facility] Sample Site, Capillary [facility] Blood Gas, LABORATORIES - POCT [facility] Specimen Anatomical Collection Method Collection Time Receive d Time (Source) Location / / Volume Laterality 12/25/2013 9:20 AM 4 9:20 CDT AM CDT Historical Provider LAB POCT ORDERABLES-MANUAL Performing Organization Address City/State/ZIP Code Phon e Number [facility] - [address] [place], [place] [address] [facility] Glucose, POCT (12/25/2013 5:48 AM CDT) [facility] Method Time Signature Glucose, 120 70 - 140 [facility] POCT, B MG/DL LAB[facility]ATORIES - [facility] Sample Site, Capillary [facility] Blood Gas, LABORATORIES - POCT [facility] Last Intake NPO [facility] - [facility] Specimen Anatomical Collection Method Collection Time Receive d Time (Source) Location / / Volume Laterality 12/25/2013 5:48 AM 4 5:48 CDT AM CDT Historical Provider LAB POCT ORDERABLES-MANUAL Performing Organization Address City/State/ZIP Code Phon e Number [facility] - [address] [place], [place] [address] [facility] documented in this encounter Visit Diagnoses Not on filedocumented in this encounter
--- OUTSIDE RECORDS SUMMARY | 2022-02-27 08:03 | XMS_ITS | Encounter Summary ---
:1940 Author Organization [facility] Address [address] [place] [address] Care Team Providers Name Role Phone Reuben Cavazos Primary Care Provider Unavailable Reason for Visit Reason Comments Immunizations Appointment Request (Routine) - Closed Specialty Diagnoses / Procedures Referred By Contact Refer red To Contact Family Medicine Referral ID Status Reason Start Date Expiration Date Visits Requ ested Visits Authorized [id number] Closed 10/12/2017 10/12/2018 1 1 Encounter Details Date Type Department Care Team Description 11/10/2017 Nurse Only Department of Family Sarah Ortiz L.P.N . Immunizations Medicine, [facility] hi [facility] [address] [place] [address] Social History Tobacco Use Types Packs/Day Years [...] How often do you attend sikhism or rastafarian services? Patien t refused 10/29/2020 [...] Primary documented in this encounter Care Teams Jewel Bearing Turner Relationship Specialty Start Date End Date Reuben Cavazos B.M.B.S. PCP - General Family Medicine 11/19/14 11/12/17 documented as of this encounter
--- OUTSIDE RECORDS SUMMARY | 2022-02-27 08:03 | XMS_ITS | Encounter Summary ---
:1940 Author Organization [facility] Address [address] [place] [address] Care Team Providers Name Role Phone Bryce Monahan D.O. Primary Care Provider [phone] Reason for Referral Outpatient (Routine) - Closed Specialty Diagnoses / Procedures Referred By Contact Refer red To Contact Family Medicine Kristal Galeana M.D. [address] [place] [address] Referral ID Status Reason Start Date Expiration Date Visits Requ ested Visits Authorized [id number] Closed 12/01/2017 12/01/2018 [address] Galeana if possible Reason for Visit Reason Comments Other spot on neck Appointment Request (Routine) - Closed Specialty Diagnoses / Procedures Referred By Contact Refer red To Contact Family Medicine Referral ID Status Reason Start Date Expiration Date Visits Requ ested Visits Authorized [id number] Closed 11/30/2017 11/30/2018 1 1 Encounter Details Date Type Department Care Team Description 12/01/2017 Office Visit Department of Kristal Ramon Lesio n Skin Neck (Primary Dx); Medicine, Estiven Osborn M.D. [facility] [address] [place] [address] [address] [facility] [phone] [place] [address] (Work) [phone] Social History Tobacco Use Types Packs/Day Years [...] How often do you attend tenriism or episcopalian services? Patien t refused 10/29/2020 [...] Name Type Priority Associated Diagnoses Order S [facility] Family Medicine Outpatient Referral Routine Expec margoth: office visit 12/01/2017 (clinic) (Approximate), Expires: 12/01/2020 documented as of this encounter Visit Diagnoses Diagnosis Lesion Skin Neck - Primary Tag Skin documented in this encounter Care Teams Bench Assembler Battery Relationship Specialty Start Date End Date Bryce Monahan D.O. PCP - General Family Medicine 11/13/17 01/18/18 [address] [place] [address] documented as of this encounter
--- OUTSIDE RECORDS SUMMARY | 2022-02-27 08:03 | XMS_ITS | Encounter Summary ---
:1940 Author Organization [facility] Address [address] [place] [address] Care Team Providers Name Role Phone Bryce Monahan D.O. Primary Care Provider [phone] Reason for Visit Outpatient (Routine) - Closed Specialty Diagnoses / Procedures Referred By Contact Refer red To Contact Family Medicine Jamarcus Galeana M.D. [address] [place] [address] Referral ID Status Reason Start Date Expiration Date Visits Requ ested Visits Authorized [id number] Closed 12/01/2017 12/01/2018 1 1 Encounter Details Date Type Department Care Team Description 12/01/2017 Office Visit Department of Family Jamarcus Galeana Lesio n Skin Chest (Primary Dx); Medicine, [facility] Alonso [facility] [address] [place] [address] [address] [facility] [phone] [place] [address] (Work) [phone] Social History Tobacco Use Types Packs/Day Years [...] How often do you attend pentecostal or synagogue services? Patien t refused 10/29/2020 [...] with the patient and/or decision maker.: Yes [place] protocol: All relevant documentation and testing were [...] with the patient and/or decision maker.: yes [place] protocol: All relevant documentation and testing were [...] the patient and/or decision maker.: yes ?? [place] protocol: ??All relevant documentation and testin g [...] unl ess complications ??Photo taken: ??No Jamarcus Galeaan M.D. PROCEDURE/MINOR SURGICAL ORD ERABLES Performing Organization [...] the patient and/or decision maker.: Yes ?? [place] protocol: ??All relevant documentation and testin g [...] Component Value Ref Test Analysis Performed At [facility] Range Method Time Signature Gross Description Received in formalin labeled with the patient's n shad and 12/06/2017 [facility] assigned specimen ID number [id number] and labeled as 11:02 AM LABORATORIES - right upper chest is a 0.7 x 0.5 x 0.1 cm pak-white skin T [facility] shave biopsy. ??There is a 0.5 x 0.4 cm pak-white pigmented CAMPUS lesion peripherally located on the skin surface. ??Specimen is bisected and submitted entirely in cassette A1. Grossed by ABRAHAM. Report Tad Moreno 12/06/2017 [facility] electronically Alonso Early 11:02 AM LABORATORIES - signed by [facility] 12/06/2017 [facility] 11:02 AM LABORATORIES - [facility] Interpretation FINAL DIAGNOSIS 12/06/2017 [facility] A. ??Right upper chest, Skin shave biopsy: ??Seborrheic 11:02 AM LABORATORIES - keratosis [facility] Specimen Anatomical Collection Method Collection Time Receive d Time (Source) Location / / Volume Laterality Varies 12/01/2017 5:06 PM 8 6:46 CDT PM CDT Narrative This result has an attachment that is no t available. Jamarcus Galeana M.D. LAB PATH DERM ORDERABLES Performing Organization Address City/State/ZIP Code Phon e Number [facility] LABORATORIES - [address] [place], [place] [address] [facility] documented in this encounter Visit Diagnoses Diagnosis Lesion Skin Chest - Primary Tag Skin documented in this encounter Care Teams Radiology Special Procedure Tech Relationship Specialty Start Date End Date Bryce Monahan D.O. PCP - General Family Medicine 11/13/17 01/18/18 [address] [place] [address] documented as of this encounter
--- OUTSIDE RECORDS SUMMARY | 2022-02-27 08:03 | XMS_ITS | Encounter Summary ---
:1940 Author Organization [facility] Address [address] [place] [address] Care Team Providers Name Role Phone Kristal Galeana M.D. Primary Care Provider Encounter Details Date Type Department Care Team Description 01/19/2018 Clinical Communication Department of Letitia Ramon, Medicine, [facility] Alonso [address] [place] [address] [place] [address] [place] [address] (Work) [phone] Social History Tobacco Use Types Packs/Day Years [...] How often do you attend congregation or hoahaoism services? Patien t refused 10/29/2020 [...] CDT Caller:Vinayak Vazquez Relationship to Patient:self Callback Number:[phone] Pharmacy: Request/Details:patient has diabetic lab scheduled on [...] on filedocumented in this encounter Care Teams Physiologist Relationship Specialty Start Date End Date Kristal Galeana M.D. PCP - General Family Medicine 01/19/18 11/13/18 documented as of this encounter
--- OUTSIDE RECORDS SUMMARY | 2022-02-27 08:03 | XMS_ITS | Encounter Summary ---
:1940 Author Organization [facility] Address [address] [place] [address] Care Team Providers Name Role Phone Kristal Galeana M.D. Primary Care Provider Encounter Details Date Type Department Care Team Description 01/24/2018 Orders Only Department of Family Kristal Galeana M.D. Medicine, [address] [place] [address] [facility] [place] [address] [phone] Social History Tobacco Use Types Packs/Day Years [...] How often do you attend sikh or baptist services? Patien t refused 10/29/2020 [...] on filedocumented in this encounter Care Teams Special Education Resource Teacher Relationship Specialty Start Date End Date Kristal Galeana M.D. PCP - General Family Medicine 01/19/18 11/13/18 documented as of this encounter
--- OUTSIDE RECORDS SUMMARY | 2022-02-27 08:03 | XMS_ITS | Encounter Summary ---
:1940 Author Organization [facility] Address [address] [place] [address] Care Team Providers Name Role Phone Elsewhere, Pcp Primary Care Provider Unavailable Encounter Details Date Type Department Care Team Description 01/29/2017 Historical Ophthalmology [facility] Tania Michaels O.D. [address] [place], [place] [phone] (Wo rk) Social History [...] How often do you attend moravian or latter-day services? Patien t refused 10/29/2020 [...] eyes, not visually significant. CDM Reports - [employer] Id: [id number] Status: Fnl documented in this encounter Plan of Treatment Not on filedocumented as of this encounter Visit Diagnoses Not on filedocumented in this encounter Care Teams Product Development Director Relationship Specialty Start Date End Date Elsewhere, Pcp PCP - General Internal Medicine 02/04/22 documented as of this encounter
--- OUTSIDE RECORDS SUMMARY | 2022-02-27 08:03 | XMS_ITS | Encounter Summary ---
:1940 Author Organization [facility] Address [address] [place] [address] Care Team Providers Name Role Phone Bryce [...] How often do you attend tenriism or spiritism services? Patien t refused 10/29/2020 Do you belong to any clubs or organizations such as Not jelani borrero tenriism groups, unions, fraternal or athletic [...] on filedocumented in this encounter Care Teams Java Solutions Architect Relationship Specialty Start Date End Date Bryce Monahan D.O. PCP - General Family Medicine 11/13/17 01/18/[address] [place] [address] documented as of this encounter
--- OUTSIDE RECORDS SUMMARY | 2022-02-27 08:03 | XMS_ITS | Encounter Summary ---
:1940 Author Organization [facility] Address [address] [place] [address] Care Team Providers Name Role Phone Kristal Galeana M.D. Primary Care Provider Reason for Visit Reason Comments Med Refill Encounter Details Date Type Department Care Team Description 01/23/2018 Refill Department of Family Medicine, Kristal Keith M.D. Med Refill [address] [place] [address] [place] [address] [place] [address] [phone] Social History Tobacco Use Types Packs/Day Years [...] How often do you attend baptism or mu-ism services? Patien t refused 10/29/2020 [...] on filedocumented in this encounter Care Teams Flue Lining Dipper Relationship Specialty Start Date End Date Kristal Galeana M.D. PCP - General Family Medicine 01/19/18 11/13/18 documented as of this encounter
--- OUTSIDE RECORDS SUMMARY | 2022-02-27 08:03 | XMS_ITS | Encounter Summary ---
:1940 Author Organization [facility] Address [address] [place] [address] Care Team Providers Name Role Phone Kristal Galeana M.D. Primary Care Provider Encounter Details Date Type Department Care Team Description 01/26/2018 Orders Only Department of Family Kristal Galeana Diabe gil Mellitus Type 2 (HCC) (Primary Dx); Medicine, Estiven Osborn M.D. Hypertension Essential Primary; Clinic [address] General [place] [address] [address] [facility] [phone] [place] [address] (Work) [phone] Social History Tobacco Use Types Packs/Day Years [...] Signature Microalbumin 9.3 mg/L 02/28/[address] [facility] 2:38 PM CDT LABORATORIES [facility] Comment: ----ADDITIONAL INFORMATION---- This test has been modified from the man ufacturer's instructions. Its performance characteri stics were determined by [facility] in a manner co nsistent with CLIA requirements. This test has not bee n cleared or approved by the U.S. Food and Drug Admin istration. Creatinine 125 mg/dL 02/28/2018 2:38 PM CDT [facility] PUS Albumin/Creatinine 7 <17 mg/g 02/28/2018 2:38 PM CD T [facility] LABORATORIES [facility] PUS Specimen Anatomical Collection Method Collection Time Receive d Time (Source) Location / / Volume Laterality Urine (Urine, 02/28/2018 8:40 AM 02/29/20 18 1:31 Clean Catch) CDT PM CDT Kristal Galeana M.D. LAB URINE ORDERABLES Performing Organization Address City/State/ZIP Code Phon e Number [facility] LABORATORIES - [address] [place], [place] [address] [facility] PSA (Prostate-Specific Antigen), Diagnostic (02/28/2018 7:58 AM CDT) athologist Signature Prostate-Speci 0.98 <=6.5 02/28/[address] [facility] fic Ag ng/mL 2:29 PM CDT LABORATORIES [facility] Comment: ----ADDITIONAL INFORMATION---- The testing method [...] [facility] - [address] [place], [place] [address] [facility] Sodium (02/28/2018 7:58 AM CDT) athologist Signature Sodium, P 136 135 - 145 02/28/2018 [facility] mmol/L 9:11 AM [facility] Specimen Anatomical Collection Method Collection Time Receive d Time (Source) Location / / Volume Laterality Blood (Blood, 02/28/2018 7:58 AM 02/29/20 18 7:58 Venous) CDT AM CDT Kristal Galeana M.D. LAB BLOOD ADD-ON Performing Organization Address City/[facility]/ZIP Code Phon e Number [facility] [address] [place] [address] Creatinine with Estimated GFR (02/28/2018 7:58 AM CDT) athologist Signature Creatinine 1.09 0.74 - 02/28/2018 [facility] 1.35 mg/dL 9:11 AM [facility] eGFR-Black/Afri 75 >=60 02/28/2018 [facility] can [place] mL/min/BSA 9:11 AM [facility] Comment: ----ADDITIONAL INFORMATION---- Estimated GFR calculated using the 2009 CKD_EPI creatinine equation. eGFR Non-Black/ 65 >=60 mL/min/BSA 02/28/2018 9:11 AM [facility] [place] [facility] Comment: ----ADDITIONAL INFORMATION---- Estimated GFR calculated using the 2009 CKD_EPI creatinine equation. Specimen Anatomical Collection Method Collection Time Receive d Time (Source) Location / / Volume Laterality Blood (Blood, 02/28/2018 7:58 AM 10/15/20 18 7:58 Venous) CDT AM CDT Kristal Galeana M.D. LAB BLOOD ADD-ON Performing Organization Address City/[facility]/ZIP Code Phon e Number [facility] [address] [place] [address] (ABNORMAL) Hemoglobin A1c (02/28/2018 7:58 AM CDT) Patholo gist Method Time Signature Hemoglobin A1c, 6.7 (H) 4.0 - 5.6 02/28/[address] [facility] B % 1:36 PM CDT LABORATORIES - [facility] Comment: Hemoglobin A1c values greater than or [...] [facility] - [address] [place], [place] [address] [facility] Potassium (02/28/2018 7:58 AM CDT) P athologist Signature Potassium, P 4.3 3.6 - 5.2 02/28/2018 [facility] mmol/L 9:11 AM CDT [facility] Specimen Anatomical Collection Method Collection Time Receive d Time (Source) Location / / Volume Laterality Blood (Blood, 02/28/2018 7:58 AM 02/29/20 18 7:58 Venous) CDT AM CDT Kristal Galeana M.D. LAB BLOOD ADD-ON Performing Organization Address City/State/ZIP Code Phon e Number [facility] [address] [place] [address] documented in this encounter Visit Diagnoses Diagnosis Diabetes Mellitus Type 2 (HCC) - Primary Hypertension Essential Primary General Medical Examination Adult documented in this encounter Care Teams Electronic Assembly Relationship Specialty Start Date End Date Kristal Galeana M.D. PCP - General Family Medicine 01/19/18 11/13/18 documented as of this encounter
--- OUTSIDE RECORDS SUMMARY | 2022-02-27 08:03 | XMS_ITS | Encounter Summary ---
:1940 Author Organization [facility] Address [address] [place] [address] Care Team Providers Name Role Phone Elsewhere, Pcp Primary Care Provider Unavailable Encounter Details Date Type Department Care Team Description 01/18/2014 Historical Ophthalmology RST OPH Dharmesh Lopez O.D. [address] [place], [place] [address] (Wo rk) Social History [...] the morning. Glucose 103 on 12/20/13 and JfvijejojwO9c 6.4 on 12/26/13. Patient reports vision good [...] error (hyperopic astigmatism, presbyopia). CDM Reports - [facility] Id: [id number] Status: Fnl documented in this encounter Plan of Treatment Not on filedocumented as of this encounter Visit Diagnoses Not on filedocumented in this encounter Care Teams Diesel Engine Operator Relationship Specialty Start Date End Date Elsewhere, Pcp PCP - General Internal Medicine 02/04/22 documented as of this encounter
--- OUTSIDE RECORDS SUMMARY | 2022-02-27 08:03 | XMS_ITS | Encounter Summary ---
:1940 Author Organization [facility] Address [address] [place] [address] Care Team Providers Name Role Phone Kristal [...] How often do you attend mu-ism or nondenominational services? Patien t refused 10/29/2020 Do you belong to any clubs or organizations such as Not jelani borrero mu-ism groups, unions, fraternal or athletic [...] on filedocumented in this encounter Care Teams Automobile Radiator Mechanic Relationship Specialty Start Date End Date Kristal Galeana M.D. PCP - General Family Medicine 01/19/18 11/13/18 documented as of this encounter
--- OUTSIDE RECORDS SUMMARY | 2022-02-27 08:03 | XMS_ITS | Encounter Summary ---
:1940 Author Organization [facility] Address [address] [place] [address] Care Team Providers Name Role Phone Reuben Cavazos B.M.B.S. Primary Care Provider Unavailable Encounter Details Date Type Department Care Team Description 09/09/2017 Orders Only Department of Family Reuben Cavazos Dia betes Mellitus Type Medicine, [facility] B.M.B.S. 2 With out Complication [facility] [place] ([facility]) [place], [place] [address] [place] [address] Social History Tobacco Use Types Packs/Day Years [...] How often do you attend presybeterian or scientology services? Patien t refused 10/29/2020 [...] (HCC) documented in this encounter Care Teams Organizational Development Consultant Relationship Specialty Start Date End Date Reuben Cavazos B.M.BClarenceS. PCP - General Family Medicine 11/19/14 11/12/17 documented as of this encounter
--- OUTSIDE RECORDS SUMMARY | 2022-02-27 08:03 | XMS_ITS | Encounter Summary ---
:1940 Author Organization [facility] Address [address] [place] [address] Care Team Providers Name Role Phone Kristal Galeana M.D. Primary Care Provider Encounter Details Date Type Department Care Team Description 02/28/2018 Hospital Encounter Department of Kristal Galeana Diabjacqueline es Mellitus Laboratory Medicine [place] Type 2 (HCC) in [address] [phone] [phone] Social History Tobacco Use Types Packs/Day Years [...] How often do you attend hoahaoism or jehovah's witness services? Patien t refused [...] CDT) athologist Signature Microalbumin 9.3 mg/L 02/28/2018 [facility] 2:38 PM CDT [facility] Comment: ----ADDITIONAL INFORMATION---- This test has been modified from the valentin hurtado's instructions. Its performance characteri stics were determined by [facility] in a manner co nsistent with CLIA requirements. This test has not bee n cleared or approved by the U.S. Food and Drug Admin istration. Creatinine 125 mg/dL 02/28/2018 2:38 PM CDT [facility] PUS Albumin/Creatinine 7 <17 mg/g 02/28/2018 2:38 PM CD T [facility] PUS Specimen Anatomical Collection Method Collection Time Receive d Time (Source) Location / / Volume Laterality Urine (Urine, 02/28/2018 8:40 AM 02/29/20 18 1:31 Clean Catch) CDT PM CDT Kristal Galeana M.D. LAB URINE ORDERABLES Performing Organization Address City/State/ZIP Code Phon e Number [facility] - [address] documented in this encounter Visit Diagnoses Diagnosis Diabetes Mellitus Type 2 (HCC) documented in this encounter Care Teams Network Contractor Relationship Specialty Start Date End Date Kristal Galeana M.D. PCP - General Family Medicine 01/19/18 11/13/18 documented as of this encounter
--- OUTSIDE RECORDS SUMMARY | 2022-02-27 08:03 | XMS_ITS | Encounter Summary ---
:1940 Author Organization [facility] Address [address] [place] [address] Care Team Providers Name Role Phone Bryce Monahan D.O. Primary Care Provider [phone] Reason for Referral Outpatient (Routine) - Closed Specialty Diagnoses / Procedures Referred By Contact Refer red To Contact Orthopedic Surgery Roslyn Veliz APRN, [facility] [facility] [address] [place] [phone] Referral ID Status Reason Start Date Expiration Date Visits Requ ested Visits Authorized [id number] Closed 01/13/2018 01/13/2019 1 1 Reason for Visit Outpatient (Routine) - Closed Specialty Diagnoses / Procedures Referred By Contact Refer red To Contact Orthopedic Surgery Roslyn Veliz APRN, [facility] [address] [place] [phone] Referral ID Status Reason Start Date Expiration Date Visits Requ ested Visits Authorized [id number] Closed 10/13/2017 10/13/2018 1 1 Encounter Details Date Type Department Care Team Description 01/13/2018 Procedure visit Department of Roslyn Veliz Callus Co rn Foot; Orthopedic Surgery in [place] [facility] Diabetes Mellitus Type 2 With Diabetic N europathy ([facility]) [place], [place] [address] [facility] [address] [place] [phone] Social History Tobacco Use Types Packs/Day Years [...] How often do you attend rastafarian or worship services? Patien t refused 10/29/2020 [...] PRESENT ILLNESS Mr. 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 PCP - General Family Medicine 11/13/17 01/18/18 [address] [place] [address] documented as of this encounter
--- OUTSIDE RECORDS SUMMARY | 2022-02-27 08:03 | XMS_ITS | Encounter Summary ---
:[address] [facility] Address [address] [place] [address] Care Team Providers Name Role Phone Reuben Cavazos.M.B.S. Primary Care Provider Unavailable Reason for Visit Reason Onset Date Comments Appointment 10/12/2017 Encounter Details Date Type Department Care Team Description 10/12/2017 Clinical Communication Department of Cathy Casas, Appointment Medicine, [facility] Riddhi.M.B.SClarence [place], [place] [address] [place] [address] Social History Tobacco Use Types Packs/Day Years [...] How often do you attend adventist or anglican services? Patien t refused 10/29/2020 [...] place that order for him. His number [phone]. Please respond to [facility] Scheduling pool if necessary documented in this encounter Plan of Treatment Scheduled Orders Name Type Priority Associated Diagnoses Order S hood ICS Podiatry Procedure Procedures Routine Diabetes Mellitus Type Expected: 10/12/2017 Clinic 2 ([facility]) (Approximate), Expires: 2020 documented as of this encounter Visit Diagnoses Diagnosis Diabetes Mellitus Type 2 (HCC) - Primary documented in this encounter Care Teams Log Raft Worker Relationship Specialty Start Date End Date Reuben Cavazos B.M.B.S. PCP - General Family Medicine 11/19/14 11/12/17 documented as of this encounter
--- OUTSIDE RECORDS SUMMARY | 2022-02-27 08:03 | XMS_ITS | Encounter Summary ---
:1940 Author Organization [facility] Address [address] [place] [address] Care Team Providers Name Role Phone Kristal Galeana M.D. Primary Care Provider Reason for Visit Reason Comments Med Refill Encounter Details Date Type Department Care Team Description 02/13/2018 Refill Department of Family Medicine, Kristal Keith M.D. Med Refill [address] [place] [address] [place] [address] [place] [address] [phone] Social History Tobacco Use Types Packs/Day Years [...] How often do you attend mandaeism or adventist services? Patien t refused 10/29/2020 [...] filedocumented in this encounter Care Teams Rn First Assist Relationship Specialty Start Date End Date Kristal Galeana M.D. PCP - General Family Medicine 01/19/18 11/13/18 documented as of this encounter
--- OUTSIDE RECORDS SUMMARY | 2022-02-27 08:03 | XMS_ITS | Encounter Summary ---
:1940 Author Organization [facility] Address [address] [place] [address] Care Team Providers Name Role Phone Kristal Galeana M.D. Primary Care Provider Reason for Referral Outpatient (Routine) - Closed Specialty Diagnoses / Procedures Referred By Contact Refer red To Contact Family Medicine Diagnoses Diabetes Mellitus Type 2 (HCC) [facility] [address] [place] [phone] Referral ID Status Reason Start Date Expiration Date Visits Requ ested Visits Authorized [id number] Closed 03/04/2018 03/04/2019 1 1 Reason for Visit Reason Comments Diabetes Appointment Request (Routine) - Closed Specialty Diagnoses / Procedures Referred By Contact Refer red To Contact Family Medicine Referral ID Status Reason Start Date Expiration Date Visits Requ ested Visits Authorized [id number] Closed 01/19/2018 01/19/2019 1 1 Encounter Details Date Type Department Care Team Description 03/04/2018 Office Visit Department of [facility] Kristal Galeana M.D. [address] [place] [address] [address] [place] [address] Diabetes Mellitus Type 2 (HCC) (Primary Dx); Medicine, [facility] Med Alvarez M.D. 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); Clinic [place], in Hyperlipid emia; [place], [place] Hypertension Essential Prima ry [address] [place] [address] Social History Tobacco Use Types Packs/Day Years [...] Type 2 With Diabetic Neuropathy ([facility]) #3 Hyperlipidemia - Lipid Panel; Future; [...] Name Type Priority Associated Diagnoses Order S [facility] Outpatient Referral Routine Diabetes Mellitus Expected: office visit Type 2 (HCC) 09/02/2018 (clinic) - Other (Approximat e), provider Expires: 03/04/2021 documented as of this encounter Results Creatinine with Estimated GFR (09/02/2018 8:15 AM CDT) P athologist Signature Creatinine 1.06 0.74 - 09/02/2018 [facility] 1.35 mg/dL 9:02 AM CDT [facility] eGFR-Black/Afri 77 >=60 09/02/2018 [facility] can [place] mL/min/BSA 9:02 AM [facility] Comment: ----ADDITIONAL INFORMATION---- Estimated GFR calculated using the 2009 CKD_EPI creatinine equation. eGFR Non-Black/ 66 >=60 mL/min/BSA 09/02/2018 9:02 AM [facility] [place] [facility] Comment: ----ADDITIONAL INFORMATION---- Estimated GFR calculated using the 2009 CKD_EPI creatinine equation. Specimen Anatomical Collection Method Collection Time Receive d Time (Source) Location / / Volume Laterality Blood (Blood, 09/02/2018 8:15 AM 09/03/19 8:15 Venous) CDT AM CDT Med Alvarez M.D. LAB BLOOD ADD-ON Performing Organization Address City/[facility] Phon e Number [address] [address] Sodium (09/02/2018 8:15 AM CDT) P athologist Signature Sodium, P 136 135 - 145 09/02/2018 [facility] mmol/L 9:02 AM [facility] Specimen Anatomical Collection Method Collection Time Receive d Time (Source) Location / / Volume Laterality Blood (Blood, 09/02/2018 8:15 AM 09/03/19 8:15 Venous) CDT AM CDT Med Alvarez M.D. LAB BLOOD ADD-ON Performing Organization Address City/[facility]/ZIP Code Phon e Number [address] [address] Potassium (09/02/2018 8:15 AM CDT) P athologist Signature Potassium, P 4.4 3.6 - 5.2 09/02/2018 [facility] mmol/L 9:02 AM [facility] Specimen Anatomical Collection Method Collection Time Receive d Time (Source) Location / / Volume Laterality Blood (Blood, 09/02/2018 8:15 AM 09/03/19 8:15 Venous) CDT AM CDT Med Alvarez M.D. LAB BLOOD ADD-ON Performing Organization Address City/State/[facility] Code Phon e Number [facility] [address] [place] [address] Lipid Panel (09/02/2018 8:15 AM CDT) P athologist Signature Cholesterol, 112 mg/dL 09/02/2018 [facility] Total 1:24 PM CDT [facility] Comment: ----REFERENCE VALUE---- Desirable: < 200 Borderline high: 200 - 239 High: > or = 240 Triglycerides 95 mg/dL 09/02/2018 1:24 PM CDT [facility] Comment: ----REFERENCE VALUE---- Normal: <150 Borderline high: 150-199 High: 200-499 Very high: > or =500 Cholesterol, HDL, S 49 >=40 mg/dL 09/02/2018 1:24 PM CDT [facility] PUS Calculated LDL 44 mg/dL 09/02/2018 1:24 PM CDT [facility] PUS Comment: ----REFERENCE VALUE---- Desirable: <100 Above Desirable: 100-129 Borderline high: 130-159 High: 160-189 Very high: > or =190 Cholesterol, Non-HDL, 63 mg/dL 09/02/2018 1:24 PM CDT [facility] Comment: ----REFERENCE VALUE---- Desirable: <130 Above Desirable: 130-159 Borderline high: 160-189 High: 190-219 Very high: > or =220 Specimen Anatomical Collection Method Collection Time Receive d Time (Source) Location / / Volume Laterality Blood (Blood, 09/02/2018 8:15 AM 09/03/19 19 Venous) CDT 12:41 PM CDT Med Alvarez M.D. LAB BLOOD ADD-ON Performing Organization Address City/State/ZIP Code Phon e Number [facility] - 200 [place], [place] [address] [facility] (ABNORMAL) Hemoglobin A1c (09/02/2018 8:15 AM CDT) Patholo gist Method Time Signature Hemoglobin A1c, 6.7 (H) 4.0 - 5.6 09/02/2018 [facility] B % 3:47 PM CDT [facility] Comment: Hemoglobin A1c values greater than [...] Address City/State/ZIP Code Phon e Number [facility] - [address] [place] [address] [facility] documented in this encounter Visit Diagnoses Diagnosis Diabetes Mellitus Type 2 (HCC) - Primary Diabetes Mellitus Type 2 With Diabetic N europathy (HCC) Hyperlipidemia Hypertension Essential Primary documented in this encounter Care Teams Obstetrics Tech Relationship Specialty Start Date End Date Kristal Galeana M.D. PCP - General Family Medicine 01/19/18 11/13/18 documented as of this encounter
--- OUTSIDE RECORDS SUMMARY | 2022-02-27 08:03 | XMS_ITS | Encounter Summary ---
:1940 Author Organization [facility] Address [address] [place] [address] Care Team Providers Name Role Phone Kristal Galeana M.D. Primary Care Provider Encounter Details Date Type Department Care Team Description 09/02/2018 Hospital Encounter Department of Med Alvarez Mellitus Type 2 (HCC); Laboratory Medicine Alonso Gardner Hyperlipidemia; in [address] Hypertension Essential Primary [place], [place] [address] [facility] [id number] [place], [place] [phone] (Work) [phone] Social History Tobacco Use Types Packs/Day Years [...] How often do you attend orthodoxy or confucianism services? Patien t refused 10/29/2020 [...] tablet by 0 12/15 (ascorbic acid with laecy mouth at bedtime. hips) 500 mg tablet [...] athologist Signature Creatinine 1.06 0.74 - 09/02/2018 [facility] 1.35 mg/dL 9:02 AM [facility] eGFR-Black/Afri 77 >=60 09/02/2018 [facility] can Trinidadian mL/min/BSA 9:02 AM T [facility] Comment: ----ADDITIONAL INFORMATION---- Estimated GFR calculated using the 2009 CKD_EPI creatinine equation. eGFR Non-Black/ 66 >=60 mL/min/BSA 09/02/2018 [facility] Comment: ----ADDITIONAL INFORMATION---- Estimated GFR calculated using the 2009 CKD_EPI creatinine equation. Specimen Anatomical Collection Method Collection Time Receive d Time (Source) Location / / Volume Laterality Blood (Blood, 09/02/2018 8:15 AM 09/03/19 8:15 Venous) CDT AM CDT Med Alvarez M.D. LAB BLOOD ADD-ON Performing Organization Address City/[facility] Code Phon e Number [address] [phone] Sodium (09/02/2018 8:15 AM CDT) athologist Signature Sodium, P 136 135 - 145 09/02/2018 [facility] mmol/L 9:02 AM CDT [facility] Specimen Anatomical Collection Method Collection Time Receive d Time (Source) Location / / Volume Laterality Blood (Blood, 09/02/2018 8:15 AM 09/03/19 8:15 Venous) CDT AM CDT Med Alvarez M.D. LAB BLOOD ADD-ON Performing Organization Address City/[facility]/ZIP [facility] Phon [place] Number [address] [phone] Potassium (09/02/2018 8:15 AM CDT) athologist Signature Potassium, P 4.4 3.6 - 5.2 09/02/2018 [facility] mmol/L 9:02 AM CDT [facility] Specimen Anatomical Collection Method Collection Time Receive d Time (Source) Location / / Volume Laterality Blood (Blood, 09/02/2018 8:15 AM 09/03/19 8:15 Venous) CDT AM CDT Med Alvarez M.D. LAB BLOOD ADD-ON Performing Organization Address City/[facility] Phon e Number [address] [phone] Lipid Panel (09/02/2018 8:15 AM CDT) athologist Signature Cholesterol, 112 mg/dL 09/02/2018 [facility] Total 1:24 PM CDT [facility] Comment: ----REFERENCE VALUE---- Desirable: < 200 Borderline high: 200 - 239 High: > or = 240 Triglycerides 95 mg/dL 09/02/2018 1:24 PM CDT [facility] Comment: ----REFERENCE VALUE---- Normal: <150 Borderline high: 150-199 High: 200-499 Very high: > or =500 Cholesterol, HDL, S 49 >=40 mg/dL 09/02/2018 1:24 PM CDT [facility] Calculated LDL 44 mg/dL 09/02/2018 1:24 PM CDT [facility] Comment: ----REFERENCE VALUE---- Desirable: <100 Above Desirable: 100-129 Borderline high: 130-159 High: 160-189 Very high: > or =190 Cholesterol, Non-HDL, 63 mg/dL 09/02/2018 1:24 PM CDT [facility] Comment: ----REFERENCE VALUE---- Desirable: <130 Above Desirable: 130-159 Borderline high: 160-189 High: 190-219 Very high: > or =220 Specimen Anatomical Collection Method Collection Time Receive d Time (Source) Location / / Volume Laterality Blood (Blood, 09/02/2018 8:15 AM 09/03/19 Venous) CDT 12:41 PM CDT Med Alvarez M.D. LAB BLOOD ADD-ON Performing Organization Address City/[facility]/ZIP Code Phon e Number [facility] - [address] (ABNORMAL) Hemoglobin A1c (09/02/2018 8:15 AM CDT) [facility] Method Time Signature Hemoglobin A1c, 6.7 (H) 4.0 - 5.6 09/02/2018 [facility] B % 3:47 PM CDT [facility] Comment: Hemoglobin A1c values greater [...] M.D. LAB BLOOD ADD-ON Performing Organization Address City/[facility]/ZIP Code Phon e Number [facility] - [address] documented in this encounter Visit Diagnoses Diagnosis Diabetes Mellitus Type 2 (HCC) Hyperlipidemia Hypertension Essential Primary documented in this encounter Care Teams Mandrel Maker Relationship Specialty Start Date End Date Kristal Galeana M.D. PCP - General Family Medicine 01/19/18 11/13/18 documented as of this encounter
--- OUTSIDE RECORDS SUMMARY | 2022-02-27 08:04 | XMS_ITS | Encounter Summary ---
:1940 Author Organization [facility] Address [address] [place] [address] Care Team Providers Name Role Phone Unavailable [...] How often do you attend pentecostal or amish services? Elizabeth t refused 10/29/2020 Do you [...]
--- OUTSIDE RECORDS SUMMARY | 2022-02-27 08:04 | XMS_ITS | Encounter Summary ---
:1940 Author Organization [facility] Address [address] [place] [address] Care Team Providers Name Role Phone Elsewhere, Pcp Primary Care Provider Unavailable Encounter Details Date Type Department Care Team Description 02/11/2006 Historical Ophthalmology RST OPH Morris Andrade O.D. [address] [place], [place] [phone] (Wo rk) Social History [...] often do you attend oriental orthodox or presybeterian services? Patien t refused 10/29/2020 [...] visually significant. CDM Reports - EYEGEN Id: [id number] Status: Fnl documented in this encounter Plan of Treatment Not on filedocumented as of this encounter Visit Diagnoses Not on filedocumented in this encounter Care Teams Folder Seamer Relationship Specialty Start Date End Date Elsewhere, Pcp PCP - General Internal Medicine 02/04/22 documented as of this encounter
--- OUTSIDE RECORDS SUMMARY | 2022-02-27 08:04 | XMS_ITS | Encounter Summary ---
:1940 Author Organization [facility] Address [address] [place] [address] Care Team Providers Name Role Phone Unavailable [...] How often do you attend christianity or orthodoxy services? Patien t refused 10/29/2020 [...]
--- OUTSIDE RECORDS SUMMARY | 2022-02-27 08:04 | XMS_ITS | Encounter Summary ---
:1940 Author Organization [facility] Address [address] [place] [address] Care Team Providers Name Role Phone Elsewhere, [...] How often do you attend tenriism or quaker services? Patien t refused 10/29/2020 [...] astigmatism, presbyopia) CDM Reports - EYEGEN Id: [id number] Status: Fnl documented in this encounter Plan of Treatment Not on filedocumented as of this encounter Visit Diagnoses Not on filedocumented in this encounter Care Teams Asphalt Paver Relationship Specialty Start Date End Date Elsewhere, Pcp PCP - General Internal Medicine 02/04/22 documented as of this encounter
--- OUTSIDE RECORDS SUMMARY | 2022-02-27 08:04 | XMS_ITS | Encounter Summary ---
:1940 Author Organization [facility] Address [address] [place] [address] Care Team Providers Name Role Phone Unavailable [...] How often do you attend adventism or yazidism services? Patien t refused 10/29/2020 [...]
--- OUTSIDE RECORDS SUMMARY | 2022-02-27 08:04 | XMS_ITS | Encounter Summary ---
:1940 Author Organization [facility] Address [address] [place] [address] Care Team Providers Name Role Phone Unavailable [...] How often do you attend synagogue or restorationism services? Patien t refused 10/29/2020 [...]
--- OUTSIDE RECORDS SUMMARY | 2022-02-27 08:04 | XMS_ITS | Encounter Summary ---
:1940 Author Organization [facility] Address [address] [place] [address] Care Team Providers Name Role Phone Unavailable [...] How often do you attend baptist or lutheran services? Patien t refused 10/29/2020 [...]
--- OUTSIDE RECORDS SUMMARY | 2022-02-27 08:04 | XMS_ITS | Encounter Summary ---
:[address] [facility] Address [address] [place] [address] Care Team Providers Name Role Phone Unavailable [...] How often do you attend holiness or jain services? Patien t refused 10/29/2020 [...]
--- OUTSIDE RECORDS SUMMARY | 2022-02-27 08:04 | XMS_ITS | Encounter Summary ---
:1940 Author Organization [facility] Address [address] [place] [address] Care Team Providers Name Role Phone Unavailable Primary Care Provider Unavailable Encounter Details Date Type Department Care Team Description 12/21/2013 Hospital Encounter HX NO MAPPING Rene Warren P.A.-C. [address] [place], [place] [phone] (Wo rk) Social History [...] How often do you attend temple or baptist services? Patien t refused 10/29/2020 [...]
--- OUTSIDE RECORDS SUMMARY | 2022-02-27 08:04 | XMS_ITS | Encounter Summary ---
:1940 Author Organization [facility] Address [address] [place] [address] Care Team Providers Name Role Phone Elsewhere, Pcp Primary Care Provider Unavailable Encounter Details Date Type Department Care Team Description 03/15/2008 Historical Ophthalmology RST OPH Tania Michaels O.D. [address] [place], [place] [phone] (Wo rk) Social History [...] How often do you attend uatsdin or mormonism services? Patien t refused 10/29/2020 [...] without retinopathy CDM Reports - EYEGEN Id: [id number] Status: Fnl documented in this encounter Plan of Treatment Not on filedocumented as of this encounter Visit Diagnoses Not on filedocumented in this encounter Care Teams Waiter/Waitress Cafeteria Relationship Specialty Start Date End Date Elsewhere, Pcp PCP - General Internal Medicine 02/04/22 documented as of this encounter
--- OUTSIDE RECORDS SUMMARY | 2022-02-27 08:04 | XMS_ITS | Encounter Summary ---
:1940 Author Organization [facility] Address [address] [place] [address] Care Team Providers Name Role Phone Elsewhere, Pcp Primary Care Provider Unavailable Encounter Details Date Type Department Care Team Description 12/11/2004 Historical Ophthalmology RST OPH Morris Andrade O.D. [address] [place], [place] [phone] (Wo rk) Social History [...] How often do you attend sabianist or adventist services? Patien t refused 10/29/2020 [...] (hyperopia, presbyopia). CDM Reports - EYEGEN Id: [id number] Status: Fnl documented in this encounter Plan of Treatment Not on filedocumented as of this encounter Visit Diagnoses Not on filedocumented in this encounter Care Teams Portable Router Operator Relationship Specialty Start Date End Date Elsewhere, Pcp PCP - General Internal Medicine 02/04/22 documented as of this encounter
--- OUTSIDE RECORDS SUMMARY | 2022-02-27 08:04 | XMS_ITS | Encounter Summary ---
:1940 Author Organization [facility] Address [address] [place] [address] Care Team Providers Name Role Phone Unavailable [...] How often do you attend denominational or presybeterian services? Patien t refused 10/29/2020 [...]
--- OUTSIDE RECORDS SUMMARY | 2022-02-27 08:04 | XMS_ITS | Encounter Summary ---
:1940 Author Organization [facility] Address [address] [place] [address] Care Team Providers Name Role Phone Elsewhere, Pcp Primary Care Provider Unavailable Encounter Details Date Type Department Care Team Description 12/05/2012 Historical Ophthalmology RST OPH StalboHailee ledesma O.D. [address] [place], [place] [phone] (Wo rk) Social History [...] How often do you attend yazidism or jew services? Patien t refused 10/29/2020 [...] both eyes CDM Reports - EYEGEN Id: [id number] Status: Fnl documented in this encounter Plan of Treatment Not on filedocumented as of this encounter Visit Diagnoses Not on filedocumented in this encounter Care Teams Biomedical Equipment Specialist Relationship Specialty Start Date End Date Elsewhere, Pcp PCP - General Internal Medicine 02/04/22 documented as of this encounter
--- OUTSIDE RECORDS SUMMARY | 2022-02-27 08:04 | XMS_ITS | Encounter Summary ---
:1940 Author Organization [facility] Address [address] [place] [address] Care Team Providers Name Role Phone Unavailable [...] How often do you attend confucianism or religion services? Patien t refused 10/29/2020 Do you belong to any clubs or organizations such as Not jelani borrero confucianism groups, unions, fraternal or athletic [...] Results Glucose, POCT (09/12/2013 5:43 AM CDT) [facility] gist Method Time Signature Last Intake 3-4 hours [facility] Glucose, 132 70 - 140 [facility] POCT, B MG/DL LABORATORIES - [facility] Sample Site, Capillary [facility] Blood Gas, LABORATORIES - POCT [facility] Specimen Anatomical Collection Method Collection Time Receive d Time (Source) Location / / Volume Laterality 09/12/2013 5:43 AM 4 5:43 CDT AM CDT Historical Provider LAB POCT ORDERABLES-MANUAL Performing Organization Address City/State/ZIP Code Phon e Number [facility] - [address] [place], [place] [address] [facility] (ABNORMAL) Glucose, POCT (09/11/2013 10:14 PM CDT) [facility] gist Method Time Signature Last Intake 3-4 hours [facility] Glucose, 159 (H) 70 - 140 [facility] POCT, B MG/DL LABORATORIES - [facility] Sample Site, Capillary [facility] Blood Gas, LABORATORIES - POCT [facility] Specimen Anatomical Collection Method Collection Time Receive d Time (Source) Location / / Volume Laterality 09/11/2013 10:14 09/11/2013 PM CDT 10:14 PM CDT Historical Provider LAB POCT ORDERABLES-MANUAL Performing Organization Address City/[facility] Phon e Number [facility] - 200 [place], [place] [address] [facility] Glucose, POCT (09/11/2013 6:01 PM CDT) [facility] Method Time Signature Glucose, 116 70 - 140 [facility] POCT, B MG/DL LABORATORIES - [facility] Sample Site, Capillary [facility] Blood Gas, LABORATORIES - POCT [facility] Last Intake > 4 hours [facility] Specimen Anatomical Collection Method Collection Time Receive d Time (Source) Location / / Volume Laterality 09/11/2013 6:01 PM 4 6:01 CDT PM CDT Historical Provider LAB POCT ORDERABLES-MANUAL Performing Organization Address City/[facility] Phon e Number [facility] - 200 [place], [place] [address] [facility] Glucose, POCT (09/11/2013 1:24 PM CDT) [facility] Method Time Signature Glucose, 133 70 - 140 [facility] POCT, B MG/DL LAB[facility]ATORIES - [facility] Sample Site, Capillary [facility] Blood Gas, LABORATORIES - POCT [facility] Last Intake > 4 hours [facility] Specimen Anatomical Collection Method Collection Time Receive d Time (Source) Location / / Volume Laterality 09/11/2013 1:24 PM 4 1:24 CDT PM CDT Historical Provider LAB POCT ORDERABLES-MANUAL Performing Organization Address City/[facility]/ZIP Code Phon e Number [facility] - 200 [place], [place] [address] [facility] Glucose, POCT (09/11/2013 12:39 PM CDT) [facility] Method Time Signature Glucose, 132 70 - 140 [facility] POCT, B MG/DL LABORATORIES - [facility] Sample Site, Capillary [facility] Blood Gas, LABORATORIES - POCT [facility] Specimen Anatomical Collection Method Collection Time Receive d Time (Source) Location / / Volume Laterality 09/11/2013 12:39 09/11/2013 PM CDT 12:39 PM CDT Historical Provider LAB POCT ORDERABLES-MANUAL Performing Organization Address City/[facility]/ZIP Code Phon e Number [facility] - 200 [place], [place] [address] [facility] Glucose, POCT (09/11/2013 12:14 PM CDT) [facility] Method Time Signature Glucose, 123 70 - 140 [facility] POCT, B MG/DL LAB[facility]ATORIES - [facility] Sample Site, Capillary [facility] Blood Gas, LABORATORIES - POCT [facility] Specimen Anatomical Collection Method Collection Time Receive d Time (Source) Location / / Volume Laterality 09/11/2013 12:14 09/11/2013 PM CDT 12:14 PM CDT Varun Guerrier M.D. LAB POCT ORDERABLES-MANUAL Performing Organization Address City/State/ZIP Code Phon e Number [facility] - 200 [place], [place] [address] [facility] (ABNORMAL) Glucose, POCT (09/11/2013 10:21 AM CDT) [facility] Method Time Signature Glucose, 142 (H) 70 - 140 [facility] POCT, B MG/DL LABORATORIES - [facility] Sample Site, Capillary [facility] Blood Gas, LABORATORIES - POCT [facility] Specimen Anatomical Collection Method Collection Time Receive d Time (Source) Location / / Volume Laterality 09/11/2013 10:21 09/11/2013 AM CDT 10:21 AM CDT Varun Guerrier M.D. LAB POCT ORDERABLES-MANUAL Performing Organization Address City/State/ZIP Code Phon e Number [facility] - 200 [place] [phone] [facility] Dx Spine 1 View (09/11/2013 [...] Electronically signed by: ?? Josh Huff MD. ??[phone] 11-Sep-2013 10:1 7 Procedure Note Romy Huff [...] Time Signature Last Intake > 4 hours [facility] - [facility] Glucose, 142 (H) 70 - 140 [facility] POCT, B MG/DL LABORATORIES - [facility] Sample Site, Capillary [facility] Blood Gas, LABORATORIES - POCT [facility] Specimen Anatomical Collection Method Collection Time Receive d Time (Source) Location / / Volume Laterality 09/11/2013 6:19 AM 4 6:19 CDT AM CDT Historical Provider LAB POCT ORDERABLES-MANUAL Performing Organization Address City/State/ZIP Code Phon e Number [facility] - [address] [place], [place] [address] [facility] documented in this encounter Visit Diagnoses Not on filedocumented in this encounter
--- OUTSIDE RECORDS SUMMARY | 2022-02-27 08:04 | XMS_ITS | Encounter Summary ---
:1940 Author Organization [facility] Address [address] [place] [address] Care Team Providers Name Role Phone Unavailable [...] How often do you attend mosque or judaism services? Patien t refused 10/29/2020 [...]
--- OUTSIDE RECORDS SUMMARY | 2022-02-27 08:04 | XMS_ITS | Encounter Summary ---
:1940 Author Organization [facility] Address [address] [place] [address] Care Team Providers Name Role Phone Elsewhere, Pcp Primary Care Provider Unavailable Encounter Details Date Type Department Care Team Description 11/27/2011 Historical Ophthalmology RST OPH Tania Michales O.D. [address] [place], [place] [phone] (Wo rk) Social History [...] How often do you attend mandaeism or anglican services? Patien t refused 10/29/2020 Do you belong to any clubs or organizations such as Not jelani borrero mandaeism groups, unions, fraternal or athletic [...] both eyes CDM Reports - EYEGEN Id: [id number] Status: Fnl documented in this encounter Plan of Treatment Not on filedocumented as of this encounter Visit Diagnoses Not on filedocumented in this encounter Care Teams Furnace Combination Analyst Relationship Specialty Start Date End Date Elsewhere, Pcp PCP - General Internal Medicine 02/04/22 documented as of this encounter
--- OUTSIDE RECORDS SUMMARY | 2022-02-27 08:04 | XMS_ITS | Encounter Summary ---
:1940 Author Organization [facility] Address [address] [place] [address] Care Team Providers Name Role Phone Elsewhere, Pcp Primary Care Provider Unavailable Encounter Details Date Type Department Care Team Description 10/30/2010 Historical Ophthalmology RST OPH Shabbir Rosario M.D. [address] [place], [place] [phone] (Wo rk) Social History [...] How often do you attend confucianist or latter-day services? Patien t refused 10/29/2020 [...] both eyes CDM Reports - EYEGEN Id: [id number] Status: Fnl documented in this encounter Plan of Treatment Not on filedocumented as of this encounter Visit Diagnoses Not on filedocumented in this encounter Care Teams Student Driving Instructor Relationship Specialty Start Date End Date Elsewhere, Pcp PCP - General Internal Medicine 02/04/22 documented as of this encounter
--- OUTSIDE RECORDS SUMMARY | 2022-02-27 08:04 | XMS_ITS | Encounter Summary ---
:1940 Author Organization [facility] Address [address] [place] [address] Care Team Providers Name Role Phone Elsewhere, Pcp Primary Care Provider Unavailable Encounter Details Date Type Department Care Team Description 03/30/2007 Historical Ophthalmology RST OPH Dharmesh Lopez O.D. [address] [place], [place] [address] (Wo rk) Social History [...] How often do you attend holiness or mandaen services? Patien t refused 10/29/2020 [...] visually significant. CDM Reports - EYEGEN Id: [id number] Status: Fnl documented in this encounter Plan of Treatment Not on filedocumented as of this encounter Visit Diagnoses Not on filedocumented in this encounter Care Teams Hims Manager Relationship Specialty Start Date End Date Elsewhere, Pcp PCP - General Internal Medicine 02/04/22 documented as of this encounter
--- OUTSIDE RECORDS SUMMARY | 2022-02-27 08:05 | XMS_ITS | Clinical Summary ---
:1940 Author Organization [facility] [place] [address] Care Team Providers Name Role Phone Raul [...] 03/19/2022 Office Visit Meera Romero, DPM [address] [phone] (Wo rk) Health Maintenance Due Date [...] series) 08/06/2020 Influenza for age 65+ 01/15/2022 Procedures Procedure Name Priority Date/Time Associated Diagnosis Comme nts LAB TRACKING EVENT Routine 02/17/2022 1:00 PM CDT PATH TISSUE EXAM Routine 02/17/2022 1:00 PM Resul ts for this CDT procedure are i n the results section. from Last 3 Months Results LAB TRACKING EVENT (02/17/2022 1:00 PM CDT) Specimen Anatomical Collection Method Collection Time Receive d Time (Source) Location / / Volume Laterality Other (Other) Client Collect / 02/17/2022 1:00 PM 1008/2021 9:48 Unknown CDT PM CDT Maricel Rouse MD LAB BILL ONLY Performing Organization Address City/State/ZIP Code Phon e Number [facility] [address] [place] [address] LABORATORY-CENTRAL 2000 LABORATORY PATH TISSUE EXAM (02/17/2022 1:00 PM CDT) Component Value Ref Test Analysis Performed At [facility] [place] gist Range Method Time Signature Case Report Pathology Report ?Case: [id number] ? 02/19/2022 YAYO Authorizing Provider: ??Maricel Nguyễn MD ?Collected: ? 02/17/2022 1300 ? 3:42 PM CDT HEALTH Ordering Location: ? [facility] C[facility]TRAL LAB ?Received: ?02/18/2022 08 ? FENG DE JESUS Pathologist: ? Jonathan Miller, ? ENTRAL ? MD ? LABORATORY Specimens: ?? A) - Cecal Amador yp ? B) - [place] n Biopsy, random colon biopsy ? C) - Sple antonio Flexure Polyp ? D) - Sigm oid Colon ? Final A) COLON, CECUM, POLYPECTOMY: 02/19/2022 [facility] Electronically Diagnosis 1. Tubular adenoma 3:42 PM CDT HEALTH signed by 2. Negative for high grade dysplasia LABORATORY-Jose Alejandro Miller, 3. Per the colonoscopy report: ASAEL Joyner, ?? a. Polyp size: 2 mm GABRIEL EID MD on 02/19/2022 ?? b. Resection: Complete at 3:42 PM ?? c. Retrieval: Complete B) COLON, RANDOM, BIOPSY: 1. Lymphocytic colitis 2. See comment C) COLON, SPLENIC FLEXURE, POLYPECTOMY: 1. Tubular adenoma 2. Negative for high grade dysplasia 3. Per the colonoscopy report: ?? a. Polyp size: 3 mm ?? b. Resection: Complete ?? c. Retrieval: Complete D) COLON, SIGMOID, BIOPSY: 1. Lymphocytic colitis 2. See comment Comment The histologic changes are t ypical of the lymphocytic colitis form of microscopic colitis. The diagnosis of microscopic colitis is further supported by the history of diarrhea. 02/19/2022 [facility] 3:42 PM CDT HEALTH Occasionally prolonged infec tious diarrhea that occurs in outbreaks (Barton diarrhea) can show similar histologic changes. Some cases of lymphocytic colitis are associated with medication use; high li LABORATORY-C kelihood associations includ e NSAIDs, ASA, lansoprazole, ranitidine, sertraline, ticlopidine, and acarbose, with many other medications implicated as well. We do encounter asymptomatic microscopic colit ENTRAL is examples, which may represent subclinical disease. LABORATORY Clinical Mr. Vazquez is a 81 02/19/2022 [facility] Information y.o. who 3:42 PM CDT HEALTH presents with LABORATORY-C clinically ENTRAL significant LABORATORY diarrhea of unexplained origin. The patient's last colonoscopy was 10 years ago. Gross A) Received in formalin, lab eled with the patient's name and cecum polyp, is a 0.8 x 0.7 x 0.1 cm thin soft pak mucosal fold which is trisected and entirely submitted 1 cassette. 02/19/2022 [facility] Description 3:42 PM CDT HEALTH B) Received in formalin, lab eled with the patient's name and random colon biopsies, are multiple pale-pak mucosal fragments averaging 0.3 cm which are submitted in toto in 1 cassette. LABORATO RY-C ENTRAL C) Received in formalin, lab eled with the patient's name and splenic flexure polyp, are 2 soft pak focally polypoid tissues averaging 0.3 cm which are submitted in toto in 1 cassette. LABORATO RY D) Received in formalin, lab eled with the patient's name and sigmoid, hyperemia, are 5 soft pak-brown tissues averaging 0.4 cm which are submitted in toto in 1 cassette. The specimen was placed in formalin at 1300 on 02/17/2022. Microscopic The final 02/19/2022 [facility] Description diagnosis is 3:42 PM CDT HEALTH based on LABORATORY-C microscopic ENTRAL examination of LABORATORY appropriate sections of all specimens. Additional 02/19/2022 [facility] Information Interpreted at [facility], Central Laboratory - [address], [place] [address] 3:42 PM CDT HEALTH LABORATORY-C ENTRAL LABORATORY Specimen Anatomical Collection Method Collection Time Receive d Time (Source) Location / / Volume Laterality Other SPECIMEN FROM 02/17/2022 1:00 PM 02/19/20 22 8:06 COLON / Unknown CDT AM CDT Specimen 02/17/2022 1:00 PM 2 8:06 (specimen) CDT AM CDT (Colon Biopsy) Specimen 02/17/2022 1:00 PM 2 8:06 (specimen) CDT AM CDT (Splenic Flexure Polyp) Specimen SPECIMEN FROM 02/17/2022 1:00 PM 02/19/20 22 8:06 (specimen) COLON / Unknown CDT AM CDT Maricel Rouse MD PATHOLOGY/CYTOLOGY Performing Organization Address City/State/ZIP Code Phon e Number [facility] [address] [place] [address] LABORATORY-CENTRAL 2000 LABORATORY from Last 3 Months Insurance Payer Benefit Plan / Subscriber ID Effective Dates Phone Addre ss Type Group MEDICARE PART B - MEDICARE PART B [id number] 2004-Prese ATTN: CLAIMS HB USE ONLY HB ONLY nt [address] [place] [address] [facility] MR [id number] 2021-Presen [address] [address] [place] [address] Care Teams Restorative Coordinator Relationship Specialty Start Date End Date aRul Dunlap MD PCP - General 08/28/16 [facility] [address] [id number]
[2022-02-27 15:59] LABS: Cholesterol* 113 mg/dL (90-199); Glucose* 166 mg/dL (60-115); Triglycerides* 77 mg/dL (40-149)
[2022-02-27 16:00] LABS: HDL Cholesterol* 52 mg/dL (>=40); LDL Cholesterol Calculated 46 mg/dL (<100)
== END 2022-02-27 07:56 | disposition home or self-care (01) ==
PROVIDERS: PCP Nurse Practitioner Family; Visit Provider Nurse Practitioner Family
DX: E11.9 Type 2 diabetes mellitus without complications (principal); Z13.6 Encounter for screening for cardiovascular disorders
CPT/HCPCS: 36415; 80061; 82947

== ENCOUNTER 2022-08-20 07:56 | Outpatient (CLI) | payer MEDICARE, SELFPAY ==
[2022-08-20 13:56] LABS: Albumin* 4.6 g/dL (3.3-5.0); Chloride* 98 mmol/L (96-114)
[2022-08-20 13:57] LABS: Potassium* 4.5 mmol/L (3.6-5.1); Sodium* 136 mmol/L (135-149)
[2022-08-20 13:59] LABS: Alkaline Phosphatase* 61 U/L (40-150); Aspartate Amino Transferase* 34 U/L (12-35); Bilirubin Total* 0.7 mg/dL (0.1-1.5); Blood Urea Nitrogen* 24 mg/dL (7-30); Carbon Dioxide* 29 mmol/L (20-32); Cholesterol* 104 mg/dL (90-199); Creatinine* 1.2 mg/dL (0.5-1.5); Estimated Glomerular Filt Rate 60 ml/min; Glucose* 106 mg/dL (60-115); Total Protein* 7.6 g/dL (6.0-8.3); Triglycerides* 89 mg/dL (40-149)
[2022-08-20 14:00] LABS: Alanine Aminotransferase* 31 U/L (4-50); Calcium* 10.1 mg/dL (8.4-10.6); HDL Cholesterol* 56 mg/dL (>=40); LDL Cholesterol Calculated 30 mg/dL (<100)
[2022-08-20 14:12] LABS: PSA Screen* 2.92 ng/mL (0.10-4.00)
[2022-08-20 14:25] LABS: Creatinine Urine 86.1 mg/dL
[2022-08-20 14:27] LABS: Microalbumin Creatinine Ratio 10 mg/g (0-30); Microalbumin Urine 1 mg/dL
--- NOTE | 2022-08-26 14:21 | ONC.NURNOTE ---
Received referral from [facility]. Information discussed with medical oncologist. With this diagnosis, patient should see dermatology. Message left with clinic and phone call made to patient.
== END 2022-08-20 07:57 | disposition home or self-care (01) ==
PROVIDERS: PCP Nurse Practitioner Family; Visit Provider Nurse Practitioner Family
DX: E11.9 Type 2 diabetes mellitus without complications (principal); E78.5 Hyperlipidemia, unspecified; I10 Essential (primary) hypertension; Z12.5 Encounter for screening for malignant neoplasm of prostate
CPT/HCPCS: 80053; 80061; 82043; 82570; 84153; 84443

== ENCOUNTER 2023-01-13 14:13 | Outpatient (CLI) | payer MEDICARE, SELFPAY | END 2023-01-13 14:14 | disposition home or self-care (01) | LOC: RAD 14:19 | PROVIDERS: PCP Nurse Practitioner Family; Visit Provider Nurse Practitioner Family | DX: R00.1 Bradycardia, unspecified (principal); R42 Dizziness and giddiness | CPT/HCPCS: 93225; 93226 ==

== ENCOUNTER 2023-02-11 15:33 | Outpatient (CLI) | payer MEDICARE, SELFPAY ==
[2023-02-11 22:54] LABS: PCR FLU A Negative PCR FLU A (Negative); PCR FLU B Negative PCR FLU B (Negative); PCR RSV Negative PCR RSV (Negative)
[2023-02-11 23:26] LABS: SARS PCR* Negative SARS-CoV-2 (Negative)
== END 2023-02-11 15:34 | disposition home or self-care (01) ==
PROVIDERS: PCP Nurse Practitioner Family; Visit Provider Nurse Practitioner Family
DX: J11.1 Influenza due to unidentified influenza virus with other respiratory manifestations (principal); R06.89 Other abnormalities of breathing; I10 Essential (primary) hypertension; E11.9 Type 2 diabetes mellitus without complications; Z51.81 Encounter for therapeutic drug level monitoring
CPT/HCPCS: 80048; 83880; 85025; 87631

== ENCOUNTER 2023-02-19 12:38 | Outpatient (CLI) | payer MEDICARE, SELFPAY | END 2023-02-19 12:39 | disposition home or self-care (01) | LOC: RAD 12:38 | PROVIDERS: PCP Nurse Practitioner Family; Visit Provider Nurse Practitioner Family | DX: R00.1 Bradycardia, unspecified (principal); I35.1 Nonrheumatic aortic (valve) insufficiency; I34.0 Nonrheumatic mitral (valve) insufficiency; I07.1 Rheumatic tricuspid insufficiency; R01.1 Cardiac murmur, unspecified | CPT/HCPCS: 93306 ==

== ENCOUNTER 2024-01-24 08:56 | Outpatient (CLI) | payer MEDICARE, SELFPAY ==
--- OUTSIDE RECORDS SUMMARY | 2024-01-24 09:04 | XMS_ITS | Clinical Summary ---
Author Organization [facility] er Address [address] [place] [address] Care Team Providers Care Reporting Analyst Name Role Phone None, Pcp Primary Care Provider Unavailabl e Medications Medication Sig Dispensed Refills Start Date End Date Status glipiZIDE (GLUCOTROL) 5 MG tablet Take 1 tablet (5 mg total) by mouth Active amLODIPine (NORVASC) 5 MG tablet Take 1 tablet (5 mg total) by mouth 1 (one) time each day Active losartan (COZAAR) 100 MG tablet Take 1 tablet (100 mg total) by mouth 1 (one) time each day Active rosuvastatin (CRESTOR) 10 MG tablet Take 1 tablet (10 mg total) by mouth 1 (one) time each day Active hydroCHLOROthiazide (HYDRODIURIL) 50 MG tablet Take 1 tablet (50 mg total) by mouth 1 (one) time each day Active Family History Medical History Relation Comments Glaucoma Neg Hx Macular degeneration Neg Hx Social History Tobacco Use Types Packs/Day Years Used Date Smoking Tobacco: Never Assessed Tobacco Cessation:Counseling Given: Not Answered Sex and Gender Information Value Date Recorded Sex Assigned at Not on file Gender Identity Not on file Sexual Orientation Not on file Plan of Treatment Health Maintenance Due Date Last Done Comments Fall Risk Performed 1958 Medicare Annual Wellness Visit (AWV) 1958 Pneumococcal Vaccine: 65+ Years (1 of 1 - PCV) 2004 COVID-19 Vaccine (2022- season) 2024 02/05/2022, 03/05/2021, 08/27/2020, Additional history exists Influenza Vaccine (#1) 2024 , 02/28/2019, 02/18/2018, Additional history exists DTaP,Tdap,and Td Vaccines (3 - Td or Tdap) 08/20/2032 08/20/2022, 02/23/2012, 09/05/2008, Additional history exists Zoster Vaccines Completed 11/10/2017, 08/16, 12/10/2008 HPV Vaccines Aged Out No longer eligi ble based on patient's age to complete this topic Care Teams Reporting Analyst Relationship Specialty Start Date End Date None, Pcp [address] [facility] [place] [address] PCP - General Full Stack Java Developer 12/24/22
--- OUTSIDE RECORDS SUMMARY | 2024-01-24 09:04 | XMS_ITS | Clinical Summary ---
Author Organization [facility] Address [place], [place] [address] Care Team Providers Care Distribution Sales Manager Name Role Phone Johanne Shukla ELECTRICIAN'S ASSISTANT Primary Care Provider [phone]- [phone] Allergies No known active allergies Medications Medication Sig Dispensed Refills Start Date End Date Status amLODIPine (NORVASC) 5 mg tablet Take 5 mg by mouth once daily. 03/20/2019 Active hydroCHLOROthiazid e 50 mg tablet Take 50 mg by mouth once daily. 02/14/2020 Active losartan (COZAAR) 100 mg tablet Take 100 mg by mouth once daily. 02/14/2020 Active rosuvastatin (CRESTOR) 10 mg tablet Take 10 mg by mouth once daily. 02/14/2020 Active glipiZIDE (GLUCOTROL) 5 mg tablet Take 5 mg by mouth once daily before a meal. Active HYDROcodone-acetam inophen ([place]) (5-325 mg/tablet)Indicati ons:S/P placement of cardiac pacemaker Take 1 Tablet by mouth every 6 hours if needed for Pain. Max acetaminophen dose: 4000 mg in 24 hrs. 10 Tablet 06/01/2023 Active aspirin chewable 81 mg chewable tabletIndications: S/P placement of cardiac pacemaker Chew 1 Tablet (81 mg) by mouth once daily with a meal. hold x 7 days. Ok to resume taking on or after 06/08/2023. 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 Coronary artery disease 05/25/2023 Hypertension 05/25/2023 Social History Tobacco Use Types Packs/Day Years Used Date Smoking Tobacco: Never Smokeless Tobacco: Never Tobacco Cessation:Counseling Given: Yes Alcohol Use Standard Drinks/Week Comments Not Currently 0 (1 standard drink = 0.6 oz pur e alcohol) 05/25/2023 nothing in 2 years Social Connections Answer Date Recorded Frequency of Communication with Friends and Fami ly Not on file 02/19/2023 Financial Resource Strain Answer Date R ecorded Difficulty of Paying Living Expenses Not on file 2021 Difficulty of Paying Living Expenses Not on file 2021 Sex and Gender Information Value Date Recorded Sex Assigned at Not on file Gender Identity Not on file Sexual Orientation Not on file Obstetrics History Last Filed Vital Signs Vital Sign Reading Time Taken Comments Blood Pressure 150/69 06/01/2023 11:50 AM LENS FINISHER Pulse 59 08/26/2023 8:17 AM CDT Temperature 36.1 ??C (96.9 ??F) 06/01/2023 11:[address] Respiratory Rate 20 06/01/2023 11:50 AM LENS FINISHER Oxygen Saturation 97% 08/26/2023 8:17 AM CDT Inhaled Oxygen Concentration - - Weight 93.4 kg (206 lb) 08/26/2023 8:17 AM CDT Height 179.1 cm (5' 10.5) 06/01/2023 7:16 AM CS T Body Mass Index 29.14 06/01/2023 7:16 AM LENS FINISHER Plan of Treatment Upcoming Encounters Date Type Department Care Team (Late st Contact Info) Description 01/28/2024 Cardiac Device Check [facility] [phone] 03/01/2024 8:30 AM CDT Office Visit [facility] [address] [place] [address] Mario Romero DPM [address] [place] [address] Health Maintenance Due Date Last Done Comments Pneumococcal series for age 65+ (1 of 2 - PCV) 1945 Tdap 1950 Depression screening for age 12+ 1951 Tetanus booster 1959 Zoster (shingles) series for age 50+ (1 of 2) 1989 RSV vaccine for adults or (1 - 1-dose 60+ series) 1999 Medicare Wellness for age 65+ 2004 COVID-19 vaccine series (2022- season) 2024 02/05/2022, 03/05/2021, 08/27/2020, Additional history exists Influenza for age 65+ 01/16/2024 BMI (ht and wt on same day) for age 18+ 05/25/2024 05/25/2023 Advance Directives Documents on File Type Date Recorded Patient Labor Relations Worker Expl anation Healthcare Directive 06/01/2023 1:08 PM Care Teams Distribution Sales Manager Relationship Specialty Start Date End Date Johanne Shukla NP [address] [place] [address] PCP - General Emergency Medicine 05/25/23
== END 2024-01-24 08:57 | disposition home or self-care (01) ==
PROVIDERS: PCP Nurse Practitioner Family; Visit Provider Nurse Practitioner Family
DX: E78.5 Hyperlipidemia, unspecified (principal); I10 Essential (primary) hypertension; E11.9 Type 2 diabetes mellitus without complications; E11.69 Type 2 diabetes mellitus with other specified complication; Z12.5 Encounter for screening for malignant neoplasm of prostate; Z13.0 Encounter for screening for diseases of the blood and blood-forming organs and certain disorders involving the immune mechanism
CPT/HCPCS: 80053; 80061; 82043; 82570; 82607; 84443; 85025; G0103

== ENCOUNTER 2024-04-04 08:07 | Day surgery (SDC) | payer MEDICARE, SELFPAY ==
[2024-04-04] VITALS (7 sets, daily range): BP systolic 134–158; BP diastolic 59–69; PULSE 56–68; RESP 16; TEMP 36.4–36.6; O2SAT 94–100; BMI 29.3
--- OUTSIDE RECORDS SUMMARY | 2024-04-04 08:09 | XMS_ITS | Clinical Summary ---
Author Organization [facility] Address [place], [place] [address] Care Team Providers Care Manager Banking Name Role Phone Johanne Shukla ADULT EDUCATOR Primary Care Provider +1- [phone] Allergies No known active allergies Medications Medication [...] daily before a meal. Active HYDROcodone-acetam inophen ([place]) (5-325 mg/tablet)Indicati ons:S/P placement of cardiac pacemaker [...] Comments Blood Pressure 150/69 06/01/2023 11:50 AM CUSTOMER SUPPORT ASSISTANT Pulse 59 08/26/2023 8:17 AM CDT Temperature 36.1 C (96.9 F) 06/01/2023 11:50 AM CUSTOMER SUPPORT ASSISTANT Respiratory Rate 20 06/01/2023 11:50 AM CUSTOMER SUPPORT ASSISTANT Oxygen Saturation 97% 08/26/2023 8:17 AM CDT Inhaled Oxygen Concentration - - Weight 93.4 kg (206 lb) 08/26/2023 8:17 AM CDT Height 179.1 cm (5' 10.5) 06/01/2023 7:16 AM CS T Body Mass Index 29.14 06/01/2023 7:16 AM CUSTOMER SUPPORT ASSISTANT Plan of Treatment Upcoming Encounters Date Type Department Care Team (Late st Contact Info) Description 05/23/2024 8:15 AM CUSTOMER SUPPORT ASSISTANT Office Visit [facility] [address] [phone] Mario Romero, MARQUEZ [address] [place] [address] 05/29/2024 [place]iac Device [place] [facility] [phone] Health Maintenance Due Date Last Done Comments Pneumococcal series for age 65+ (1 of 2 - PCV) 1945 Tdap 1950 Depression screening for age 12+ 1951 Tetanus booster 1959 Zoster (shingles) series for age 50+ (1 of 2) 1989 Medicare Wellness for age 65+ 2004 RSV vaccine for adults or (1 - 1-dose 75+ series) 2014 COVID-19 vaccine series ( season) 2024 02/05/2022, 03/05/2021, 08/27/2020, Additional history exists Influenza for age 65+ 01/16/2024 BMI (ht and wt on same day) for age 18+ 05/25/2024 05/25/2023 Advance Directives Documents on File Type Date Recorded Patient Tradeshow Worker Expl anation Healthcare Directive 06/01/2023 1:08 PM Care Teams Manager Banking Relationship Specialty Start Date End Date Johanne Shukla ADULT EDUCATOR [address] [place] [address] PCP - General Emergency Medicine 05/25/23
--- OUTSIDE RECORDS SUMMARY | 2024-04-04 08:09 | XMS_ITS | Clinical Summary ---
Author Organization [facility] er Address [address] [place] [address] Care Team Providers Care Duplex Trimmer Name Role Phone None, Pcp Primary Care Provider Unavailabl e Medications glipiZIDE (GLUCOTROL) 5 MG tablet Take 1 [...] mouth 1 (one) time each day Active hydroCHLOROthiaz saurav (HYDRODIURIL) 50 MG tablet Take 1 tablet (50 mg total) by mouth 1 (one) time each day Active Family History Medical History Relation Comments Glaucoma Neg Hx Macular degeneration Neg Hx Social History Tobacco Use Types Packs/Day Years Used Date Smoking Tobacco: Never Assessed Tobacco Cessation:Counseling Given: Not Answered Sex and Gender Information Value Date Recorded Sex Assigned at Not on file Legal Sex Male 8:54 PM CDT Gender Identity Not on file Sexual Orientation Not on file Plan of Treatment Health Maintenance Due Date Last Done Comments Fall Risk Performed 1958 Medicare Annual Wellness Visit (AWV) 1958 Pneumococcal Vaccine: 65+ Years (1 of 1 - PCV) 2004 DTaP,Tdap,and Td Vaccines (3 - Td or Tdap) 08/20/2032 08/20/2022, 02/23/2012, 09/05/2008, Additional history exists Zoster Vaccines Completed 11/10/2017, 08/16, 12/10/2008 COVID-19 Vaccine Completed 01/28/2024, , 03/05/2021, Additional history exists Influenza Vaccine Completed 01/28/2024, , 02/28/2019, Additional history exists HPV Vaccines Aged Out No longer eligi ble based on patient's age to complete this topic Insurance [employer] MEDICARE ADVANTAGE Care Teams Duplex Trimmer Relationship Specialty Start Date End Date None, Pcp [address] [place] [phone] PCP - General Video Library Assistant 12/24/22
[2024-04-04] MEDS: SODIUM CHLORIDE 0.9 % (FLUSH) 10 ML SYRINGE IVF (08:51)
[2024-04-04] MEDS: CEFAZOLIN 2 GM INJ IVP (09:00)
[2024-04-04] MEDS: BUPIVACAINE 0.5 %/EPI 1:200K INJECTION (09:05)
[2024-04-04] MEDS: LIDOCAINE 2%-EPI 1:200,000 20 ML INFILTRATI (09:05)
--- NOTE | 2024-04-04 09:36 | P.ORPRC_ITS ---
Procedure Note Date of procedure: 04/04/24 Procedure: Preop diagnosis: Left upper extremity carpal tunnel syndrome Postop diagnosis: Left upper extremity carpal tunnel syndrome Procedure: Left upper extremity carpal tunnel release Anesthesia: Local Surgeon: Lázaro Bennett MD hardware sales assistant: AISHWARYA Inman EBL: 1 mL Complications: None Specimens: None Drains: None Preoperative antibiotics: Ancef 2 g Indications: The patient has a history of left upper extremity carpal tunnel syndrome symptoms. Despite appropriate nonoperative management consisting of nighttime bracing and occupational therapy they continue to have symptoms. Operative intervention was recommended. The risks, benefits alternatives and expected outcomes were discussed in detail. These included but were not limited to: Infection, bleeding, injury to blood vessel or nerve, venous thromboembolism. All questions were answered to their satisfaction. The patient was placed supine on the operating room table. Local anesthesia was established with 0.5% Marcaine with epinephrine and 2% lidocaine with epinephrine. The hand was prepped and draped in usual sterile fashion. A longitudinal incision was made centered over the radial border of the ring finger at the base of the palm. Subcutaneous dissection was sharply taken through the palmar fascia and the palmaris brevis to the transverse carpal ligament. The ligament was divided in line with the incision. Proximal and distal dissection was carried with tenotomy and Metzenbaum scissors for a wide decompression of the carpal tunnel. The wound was closed with a 3-0 nylon. A bulky dry dressing was applied, sponge and needle counts were correct x 2. The patient tolerated the procedure well, there were no apparent complications. They were sent to same day surgery in satisfactory condition. Plan: Use of the hand as tolerates. Discontinue the intraoperative dressing on postoperative day 3 and may get the wound wet as tolerates. Follow up in the office in 2 weeks for a wound check and suture removal.
--- NOTE | 2024-04-04 09:47 | SUR.PREOP ---
vital signs from 914 to 939 were done in the OR during monitoring for local mary farrell rn
== END 2024-04-04 10:02 | disposition home or self-care (01) ==
LOC: OR 08:08
PROVIDERS: PCP Nurse Practitioner Family; Visit Provider Orthopaedic Surgery
PROC: (CPT 64721; principal; 2024-04-04 10:30)
DX: G56.02 Carpal tunnel syndrome, left upper limb (principal); E11.9 Type 2 diabetes mellitus without complications; I10 Essential (primary) hypertension; E78.5 Hyperlipidemia, unspecified
CPT/HCPCS: 64721; 82962; J0690; J3490

== ENCOUNTER 2024-05-18 06:03 | Day surgery (SDC) | payer MEDICARE, BC, SELFPAY ==
[2024-05-18] VITALS (9 sets, daily range): BP systolic 120–141; BP diastolic 64–72; PULSE 58–62; RESP 12–16; TEMP 36.6–36.7; O2SAT 99–100; BMI 29.1
--- OUTSIDE RECORDS SUMMARY | 2024-05-18 06:08 | XMS_ITS | Continuity of Care Document ---
Author Name [facility] User [email or web address] Address Unknown Organization Unknown Address Unknown Procedures FILTER APPLIED:Only known Procedures with Onset Date within the last 5 years Procedure Date Procedure Provider Additional Inform ation Status TTE W/DOPPLER COMPLETE (72927) Completed ASSAY OF NATRIURETIC PEPTIDE (78038) Completed RESP VIRUS 3-5 TARGETS (56967) Completed METABOLIC PANEL TOTAL CA (80843) Completed COMPLETE CBC W/AUTO DIFF WBC (81039) Completed Encounters FILTER APPLIED:Only known Encounters with Admission Date within the last 5 years Encounter Location Admission Discharge Billing Code Petroleum Engineering Teacher Marta elaine Outpatient Outpatient Saulo Shukla Outpatient Saulo Shukla
[2024-05-18] MEDS: CEFAZOLIN 2 GM INJ IVP (06:12)
[2024-05-18] MEDS: SODIUM CHLORIDE 0.9 % (FLUSH) 10 ML SYRINGE IVF (06:36)
--- NOTE | 2024-05-18 07:38 | PM.ORPRC ---
Procedure Note Date of procedure: 05/18/24 Procedure: Preop diagnosis: Right upper extremity carpal tunnel syndrome Postop diagnosis: Right upper extremity carpal tunnel syndrome Procedure: Right upper extremity carpal tunnel release Anesthesia: Local Surgeon: Lázaro Bennett MD asset protection assistant: AISHWARYA Inman EBL: 1 mL Complications: None Specimens: None Drains: None Preoperative antibiotics: Ancef 2 g Indications: The patient has a history of right upper extremity carpal tunnel syndrome symptoms. Despite appropriate nonoperative management consisting of nighttime bracing and occupational therapy they continue to have symptoms. Operative intervention was recommended. The risks, benefits alternatives and expected outcomes were discussed in detail. These included but were not limited to: Infection, bleeding, injury to blood vessel or nerve, venous thromboembolism. All questions were answered to their satisfaction. The patient was placed supine on the operating room table. Local anesthesia was established with 0.5% Marcaine with epinephrine and 2% lidocaine with epinephrine. The hand was prepped and draped in usual sterile fashion. A longitudinal incision was made centered over the radial border of the ring finger at the base of the palm. Subcutaneous dissection was sharply taken through the palmar fascia and the palmaris brevis to the transverse carpal ligament. The ligament was divided in line with the incision. Proximal and distal dissection was carried with tenotomy and Metzenbaum scissors for a wide decompression of the carpal tunnel. The wound was closed with a 3-0 nylon. A bulky dry dressing was applied, sponge and needle counts were correct x 2. The patient tolerated the procedure well, there were no apparent complications. They were sent to same day surgery in satisfactory condition. Plan: Use of the hand as tolerates. Discontinue the intraoperative dressing on postoperative day 3 and may get the wound wet as tolerates. Follow up in the office in 2 weeks for a wound check and suture removal.
== END 2024-05-18 08:16 | disposition home or self-care (01) ==
LOC: OR 06:06
PROVIDERS: PCP Nurse Practitioner Family; Visit Provider Orthopaedic Surgery
PROC: (CPT 64721; principal; 2024-05-18 07:15)
DX: G56.01 Carpal tunnel syndrome, right upper limb (principal)
CPT/HCPCS: 64721; J0690

== ENCOUNTER 2024-07-25 18:51 | Outpatient (CLI) | payer MEDICARE, BC, SELFPAY | END 2024-07-25 18:52 | disposition home or self-care (01) | PROVIDERS: PCP Nurse Practitioner Family; Visit Provider Nurse Practitioner Family | DX: E11.65 Type 2 diabetes mellitus with hyperglycemia (principal); Z13.21 Encounter for screening for nutritional disorder | CPT/HCPCS: 82310; 82607 ==

== ENCOUNTER 2024-11-29 07:30 | Outpatient (RCR) | payer MEDICARE, BC, SELFPAY ==
--- NOTE | 2024-11-21 16:25 | PT.OPEX ---
PT [place] Outpatient Eval PT [facility] Outpatient Eval Start: 11/21/24 11:34 Freq: Status: Active Protocol: Document 11/21/24 11:35 HLA (Rec: 11/21/24 16:09 HLA [id number]) E-signed By Dorys Hernandez, PT, DPT Physical Therapy Outpatient Evaluation Insurance Information Recert Due Date 02/18/25 Insurance Name [employer] Medical Diagnosis R ITB Syndrome R greater trochanteric bursitis R hip OA Treating Diagnosis pain, weakness R hip, difficulty amb Imaging Report OA R hip/bone on bone per pt Information Referring MD Bennett Subjective Preferred Name Todd Subjective Pain R hip and ant thigh, post thigh, increases sitting /driving too long and then he can't sleep. Pain moves around and sometimes is on lateral thigh. He thinks he needs his hip replaced; symptoms are the same as his previous hip that eventually was replaced and that made a difference. He is open to trying PT today. 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 Stairs reciprocal , ind Balance screen intact Posture mildly forward head, rounded shoulders. Sensation/Reflexes intact to light touch Functional Test LEFS 55/80 68.8% Performed & Score Raul + R hip Leigh + R hip Assessment Assessment/ 84-year-old male with hx of R hip OA, back surgery, CTS Impression surgery, pacemaker, DAVEY, DM2, aoartic stenosis, heart murmur, psoriasis, hyperlipidemia, HTN, CAD, and complete heart block had 1-week hx of R hip pain, saw Dr. Bennett on 11/13/24 with dx of R ITB syndrome, R greater trochanteric bursitis, and R Hip bursitis. PT was ordered. Pt today reports pain R post hip into post thigh sitting/riding in car, pain ant thigh and lat thigh in bed. Pain increases with stretch/ROM. Rates pain as moderate. He can walk 'quite a bit.' No pain in /out of car, but household tasks, squatting, turning, increase pain. He is an active person, drives truck several days/week, yardwork as able. Pt presents with tightness R hip flex, HS and IT band, impaired ROM of hip, strength 5-/5. LEFS 55/80 or 68.8%. Issued stretches and strengthening ex today. We discussed holding any ex that increases his pain. Pt will benefit from weekly PT to improve mobility and strength of R LE. He is asking for return back to Dr. Bennett if pain does not resolve and was reassured this is the plan. Primary Functional R hip-pain, impaired ROM, impaired strength, pain with Limitations mobility Plan of Care Rehabilitation Good Potential Physical Therapy Within 4 weeks Goals Pt will amb level surfaces 20 min painfree. Pt will have 0-110 R hip flex, 0-30 abd, SLR 0-55 R hip for pain reduction, mobility without pain. Pt will be independent in home ex program to promote strength and mobility and to prevent falls. Coordination/ Referral Source,Patient Caregiver Communication With Treatment Plan/ Gait Training,Heat,Ice/Cold/Vasopneumatic,Joint Direct Interventions Mobilization,Manual Therapy,Neuromuscular Re-ed, Orthotics/Braces,Therapeutic Exercises Frequency/Duration 1x/week x 4 weeks Patient Will Be Completion of LTG(s),Skills Plateau,Independent w/HEP, Discharged From Independently Progressing Therapy Evaluation Billing Untimed Code 15 Treatment Minutes PT Eval No Charge No Complexity Low Certification Information Initial 11/21/24 Certification Date Ending Certification 02/18/25 Date Provider Signature Yes Required Provider Signature POC & Medical Necessity Shows Agreement With Physician NPI Number Write NPI# Here Physician Comment/ : Change Physician Signature Please Sign/Date Here & Date Requested
== END 2024-11-29 08:30 | disposition home or self-care (01) ==
PROVIDERS: PCP Nurse Practitioner Family; Visit Provider Orthopaedic Surgery
DX: M76.31 Iliotibial band syndrome, right leg (principal); M70.71 Other bursitis of hip, right hip; M16.11 Unilateral primary osteoarthritis, right hip; Z51.89 Encounter for other specified aftercare
CPT/HCPCS: 97110; 97161

== ENCOUNTER 2025-01-26 09:32 | Outpatient (CLI) | payer MEDICARE, BC, SELFPAY | END 2025-01-26 09:33 | disposition home or self-care (01) | PROVIDERS: PCP Nurse Practitioner Family; Visit Provider Nurse Practitioner Family | DX: I10 Essential (primary) hypertension (principal); E78.5 Hyperlipidemia, unspecified; E11.69 Type 2 diabetes mellitus with other specified complication; Z12.5 Encounter for screening for malignant neoplasm of prostate | CPT/HCPCS: 80053; 80061; 82043; 82570; 82607; 84443; G0103 ==

== ENCOUNTER 2025-03-15 08:37 | Outpatient (CLI) | payer MEDICARE, BC, SELFPAY | END 2025-03-15 08:38 | disposition home or self-care (01) | PROVIDERS: PCP Nurse Practitioner Family; Visit Provider Nurse Practitioner Family | DX: Z01.818 Encounter for other preprocedural examination (principal) | CPT/HCPCS: 80053; 85025 ==

== ENCOUNTER 2025-04-05 06:33 | Day surgery (SDC) | payer MEDICARE, BC, SELFPAY ==
[2025-03-31 15:45] VITALS: BP 123/89; PULSE 62; O2SAT 99
[2025-04-05] VITALS (46 sets, daily range): BP systolic 79–157; BP diastolic 46–96; PULSE 56–73; RESP 11–20; TEMP 36.1–37.1; O2SAT 86–100; BMI 28.4
--- NOTE | 2025-04-05 07:32 | W.PM.H&PU ---
History & Physical Update History & Physical Update H&P Reviewed and patient assessed: No changes noted
--- NOTE | 2025-04-05 07:37 | CRLHL7_ITS ---
For Patients: As a result of the Cures Act, medical imaging exams and procedure reports are released immediately into your electronic medical record. You may view this report before your referring provider. If you have questions, please contact your health care provider. Indication: Post op Hip Technique: AP hip centered pelvis and lateral view right hip Findings/Impression: Hardware from a right total hip arthroplasty is in satisfactory position. Bone alignment is normal. No sign of acute fracture. Postop changes are within normal limits. Dictated by Nash Fonseca MD @ 04/05/2025 12:26:52 PM (Electronically Signed)
[2025-04-05] MEDS: SODIUM CHLORIDE 0.9 % (FLUSH) 10 ML SYRINGE IVF (08:04)
[2025-04-05] MEDS: LACTATED RINGERS 1000 ML 1,000 ML 100 ML IV ×3 (08:05→12:14)
[2025-04-05] MEDS: OXYCODONE (CR) 10 MG TAB.ER.12H PO (08:14)
[2025-04-05] MEDS: ACETAMINOPHEN 500 MG TABLET 1000 MG PO ×3 (08:14→21:13)
[2025-04-05] MEDS: MIDAZOLAM HCL 1 MG/ML inj IVP (08:26)
--- NOTE | 2025-04-05 08:40 | SUR.PREOP ---
TIME?OUT:?823, right hip PT/RN/MDA?VERIFICATION?OF?SURGICAL?SITE,?PROCEDURE,?AND?CONSENT OBTAINED?PRIOR?TO?INVASIVE?PROCEDURE.
--- NOTE | 2025-04-05 08:41 | P.NB_ITS ---
Nerve Block Nerve Block Time Seen by Provider: 08:30 Date Seen: 04/05/25 Type of block requested by surgeon for post-operative analgesia: DERRELL/LFCN Side: right Time out performed: Yes Verification of patient name: Yes Verification of date of : Yes Site marking: site marked Name of person performing procedure: Garry Continuous monitoring Was continuous monitoring of O2 sat, B/P, monitoring specialist, recorded every 15 minutes?: Yes Procedure Checklist: sterile prep, needles and gloves Ultrasound guided. Images saved: Yes Medications given in 5ml increments after negative aspiration: Ropivicaine %: 0.5 mL: 30 Needle gauge: 20 Precedex (mcg): 25 Patient tolerated procedure well: Yes Additional comments: Needle noted below psoas tendon needle noted adjacent to LFCN Block Charges Block Charge (with Pro Fee): Other Periph Nerve Block Use of Ultrasound Machine for Block: Yes- US Guidance/pain block
--- NOTE | 2025-04-05 09:12 | CRLHL7_ITS ---
For Patients: As a result of the Cures Act, medical imaging exams and procedure reports are released immediately into your electronic medical record. You may view this report before your referring provider. If you have questions, please contact your health care provider. Indication: Hip replacement surgery Technique: AP hip fluoroscopic image. Fluoroscopy time 30.5 seconds. Findings/Impression: Hardware from a right total hip arthroplasty is in satisfactory position. Dictated by Nash Fonseca MD @ 04/05/2025 11:44:49 AM (Electronically Signed)
[2025-04-05] MEDS: TRANEXAMIC ACID 100 MG/ML INJ 1000 MG IV (09:30)
--- NOTE | 2025-04-05 09:46 | SUR.OPER ---
PATIENT QUESTIONS ANSWERED SATISFACTORILY PREOPERATIVELY. PATIENT BROUGHT TO OR #2 PER CART AFTER ADMINISTRATION OF A BLOCK. Patient positioned supine on OR #2 bed. The perioperative team supported arms bilaterally on arm boards. Final approval of positioning by surgeon.
--- NOTE | 2025-04-05 10:31 | P.ORPRC_ITS ---
Procedure Note Date of procedure: 04/05/25 Procedure: PREOPERATIVE DIAGNOSIS: 1. Right hip osteoarthritis, severe, primary POSTOPERATIVE DIAGNOSIS: 1. Right hip osteoarthritis, severe, primary PROCEDURE: 1. Right total hip arthroplasty-anterior approach 2. Intraoperative fluoroscopy interpreted by Vicente Cook M.D. for intraoperative evaluation of implant positioning, generalized leg length and offset evaluation, and bone alignment. ]Fluoroscopy time was 30.5 seconds. SURGEON: Vicente Cook MD. SENIOR SYSTEMS ENGINEER: OTONIEL Sanchez PA-C - Of note, a skilled ophthalmic surgical assistant was critical for this case to aid in patient positioning, tissue retraction, limb manipulation/positioning, and closure. ANESTHESIA: Spinal anesthetic EBL: 400 mL IMPLANTS: DePuy J&J uncemented total hip Bascom cup size 56, hole eliminator, +4 neutral liner Actis stem, standard offset, size 7 +5 mm ceramic 36 mm head COMPLICATIONS: None evident INDICATIONS: The patient is a pleasant 84-year-old male who has experienced severe right hip pain and difficulty bearing weight. Workup included x-rays which revealed severe osteoarthrosis in the hip. Given the deformity, the dysfunction, and the pain, as well as the failure of nonoperative management, recommendation was made for surgery. FINDINGS: Full-thickness chondral loss diffusely throughout the femoral head and acetabulum. Osteophytes around the femoral head/neck junction. Large effusion upon entering the joint. DESCRIPTION OF PROCEDURE: Following a thorough discussion of risks, benefits, and alternatives consent was obtained and the right hip was marked. The patient was brought to the operating room and placed supine on the operating table. Induction of anesthesia was undertaken. 2 g IV Ancef and 1 g tranexamic acid was administered within 1 hr of incision preoperatively. Proper time-out was performed identifying proper patient, site, procedure. The operative extremity was prepped and draped in the appropriate sterile fashion using ChloraPrep after the patient was positioned on the [place] table with head in neutral alignment and all bony prominences well padded. C-arm fluoroscopic imaging was utilized to confirm proper pelvis rotation and position, and to get true AP films of both the contralateral left, and the affected right hip. This is for comparison. A longitudinal incision was made starting approximately 1 cm distal to the ASIS, and 2-3 cm lateral. The incision was extended distally aiming toward the fibular head. Sharp incision through skin and bovie cautery through the subcutaneous tissue allowed identification of the TFL fascia. This was sharply divided, and the fascia bluntly released from the muscle fibers as we dissected medial. Upon coming to the medial border, we were able to retract the TFL laterally, and penetrated the deeper fascia and identify the crossing circumflex vessels. These were ligated/cauterized. The rectus was elevated from the capsule, and retractors placed laterally and medially along the femoral neck to help with visualization of the capsule. We then performed an inverted T capsulotomy. The capsule was tagged for later repair. Retractors were placed inside the capsule. The femoral neck was visualized after releasing medially down to the lesser trochanter, along the saddle laterally, and up onto the acetabulum. The femoral neck cut was made in line with our preoperative templating. The head was removed in a single piece, and sized. We turned our attention to acetabular preparation. Initially, the labrum was resected from around the perimeter, the pulvinar was excised, allowing us to visualize the false wall. We started the reaming with a 43 mm reamer. This was medialized down to the true wall. We then enlarged our reamers sequentially up to one size less than the selected cup size. We trialed at the same size and found it to have an excellent fit. The selected cup was then opened, inserted, and impacted in line with the goal of 40? of abduction, and 20-25? of anteversion. This was confirmed on C-arm fluoroscopic imaging to be in the appropriate/goal position. Once the cup was placed we placed a hole eliminator and a liner consistent with preop planning. Attention was turned to the femoral preparation. The limb was extended, externally rotated, and adducted. The posteromedial capsule was released, as retractors were placed allowing excellent access to the proximal femur. Initially a supervisor mattress and boxsprings was followed by canal finder followed by various broaches. We broached sequentially up to the size noted above, found it to have excellent rotational control, and trialing various heads and necks, revealed that appropriate neck offset, and the above noted head size provided the greatest stability, and cheondoism of length, and offset. C-arm fluoroscopic imaging confirmed position of the stem, as well as leg lengths, which were compared with the pre procedure all fluoroscopic images. Trial implants were removed, the real femoral stem inserted, as was the appropriate head. After reducing, the leg was placed through range of motion and stability was confirmed anterior, posterior, and lateral. A 3 min Betadine soak was then performed, and thorough irrigation with normal saline followed. Closure of the capsule was performed with #1 PDS. Bleeding was confirmed to be controlled at this stage, and the TFL fascia was closed with #0 strata fix. Subcutaneous, and subcuticular closure was performed with 2-0 Stratafix and 4-0 Stratafix, respectively. Dressings were applied, and the patient was awoken from anesthesia and transferred the PACU in stable condition. A skilled ophthalmic surgical assistant was critical for this case to aid in patient positioning, tissue retraction, acetabular and proximal femoral exposure, limb manipulation/positioning, dislocation/relocation, patient safety, and closure. PLAN: 1. Weight bear as tolerated operative extremity. 2. 23 hr perioperative antibiotics. 3. Ice. 4. PT/OT consults for ambulation assistance/mobility education. 5. Social work consult for discharge planning. 6. DVT prophylaxis with at SCDs and Xarelto x5 days followed by aspirin for a total of 1 month.
[2025-04-05] MEDS: ePHEDrine sulfate 5 MG/ML inj IVP ×2 (11:28→11:42)
[2025-04-05] MEDS: PHENYLEPHRINE 100 MCG/ML SYRINGE IVP ×4 (11:33→12:15)
--- NOTE | 2025-04-05 11:38 | P.ANES_ITS ---
Anesthesia Charges Start Date/Time Anesthesia Start Date: 04/05/25 Anesthesia Start Time: 09:05 Stop Date/Time Anesthesia Stop Date: 04/05/25 Anesthesia Stop Time: 11:16 Summary Extremes of Age - Over 70 or under 1: MDA Coding CPT Codes CPT Codes: ANESTH HIP ARTHROPLASTY - 05435 ([id number]) P3 - PATIENT W/SEVERE SYS DISEASE, QK - CUSHION FILLER 2-4 CNCRNT ANES PROC, QX - BRIM EDGE TRIMMER SVC W/ MD MED DIRECTION Additional Codes: Summary - Extremes of Age - Over 70 or under 1: MDA ([id number])
--- NOTE | 2025-04-05 11:38 | W.ANESCHARGE ---
Anesthesia Charges Start Date/Time Anesthesia Start Date: 04/05/25 Anesthesia Start Time: 09:05 Stop Date/Time Anesthesia Stop Date: 04/05/25 Anesthesia Stop Time: 11:16 Summary Extremes of Age - Over 70 or under 1: MDA Coding CPT Codes CPT Codes: ANESTH HIP ARTHROPLASTY - 08359 ([id number]) P3 - PATIENT W/SEVERE SYS DISEASE, QK - MANAGER COMPENSATION 2-4 CNCRNT ANES PROC, QX - KILN STOKER SVC W/ MD MED DIRECTION Additional Codes: Summary - Extremes of Age - Over 70 or under 1: MDA ([id number])
--- NOTE | 2025-04-05 11:54 | P.ANES_ITS ---
Anesthesia Charges Start Date/Time Anesthesia Start Date: 04/05/25 Anesthesia Start Time: 09:05 Stop Date/Time Anesthesia Stop Date: 04/05/25 Anesthesia Stop Time: 11:16 Coding CPT Codes CPT Codes: ANESTH HIP ARTHROPLASTY - 00571 ([id number]) P3 - PATIENT W/SEVERE SYS DISEASE, QK - PATTERN CARRIER 2-4 CNCRNT ANES PROC, QX - STEEL ANALYST SVC W/ MD MED DIRECTION
--- NOTE | 2025-04-05 11:54 | W.ANESCHARGE ---
Anesthesia Charges Start Date/Time Anesthesia Start Date: 04/05/25 Anesthesia Start Time: 09:05 Stop Date/Time Anesthesia Stop Date: 04/05/25 Anesthesia Stop Time: 11:16 Coding CPT Codes CPT Codes: ANESTH HIP ARTHROPLASTY - 53784 ([id number]) P3 - PATIENT W/SEVERE SYS DISEASE, QK - PATTERN SCRATCHER 2-4 CNCRNT ANES PROC, QX - COTTON CHOPPER SVC W/ MD MED DIRECTION
--- NOTE | 2025-04-05 12:38 | SUR.PHASEI ---
Okay to transfer to MS room if patient maintains 2 more consecutive systolic BP readings above 90 per An Izaguirre CRNA
--- NOTE | 2025-04-05 17:37 | P.IMCN_ITS ---
Date of Consult Patient: [facility] Patient Consult date: 04/05/25 Requesting Physician: Orthopedics Primary Care Provider: Johanne Shukla, ALEN, [employer]ER Consult Narrative Reason for consult: Medical management of comorbidities Narrative: Vinayak Vazquez is a 84 year old male who presented to the hospital today for an elective R hip replacement. There were no surgical or anesthetic complications noted during procedure. Patient's H&P reviewed, PCP is Johanne Shukla. Past medical history significant for: Moderate aortic stenosis, diet-controlled type 2 DM last A1c 6.8, coronary artery disease, AV block status post pacemaker placement, stage 3 CKD. Postoperative plan: Home with . Review of Systems Status of ROS: Reports: 10 or more systems reviewed and unremarkable except as noted in History and below PFSH [facility] Medical History (Updated 04/05/25 @ 17:54 by Berna White MD) CKD (chronic kidney disease), stage III ?N18.30 - Chronic kidney disease, stage 3 unspecified (ICD-10) Pacemaker ?Z95.0 - Presence of cardiac pacemaker (ICD-10) Moderate calcific aortic stenosis ?I35.0 - Nonrheumatic aortic (valve) stenosis (ICD-10) Psoriasis ?L40.9 - Psoriasis, unspecified (ICD-10) Hyperlipemia ?E78.5 - Hyperlipidemia, unspecified (ICD-10) Hypertension ?I10 - Essential (primary) hypertension (ICD-10) Coronary artery disease ?I25.10 - Atherosclerotic heart disease of [place] coronary artery without angina pectoris (ICD-10) Calcific aortic stenosis ?I35.0 - Nonrheumatic aortic (valve) stenosis (ICD-10) Trifascicular block ?I45.3 - Trifascicular block (ICD-10) Complete heart block ?I44.2 - Atrioventricular block, complete (ICD-10) Bradycardia ?R00.1 - Bradycardia, unspecified (ICD-10) Colitis ?K52.9 - Noninfective gastroenteritis and colitis, unspecified (ICD-10) Type 2 diabetes mellitus ?E11.9 - Type 2 diabetes mellitus without complications (ICD-10) Surgical History (Updated 04/05/25 @ 17:54 by Berna White MD) S/P hip replacement ?Z96.649 - Presence of unspecified artificial hip joint (ICD-10) History of back surgery ?Z98.890 - Other specified postprocedural states (ICD-10) History of carpal tunnel surgery of right wrist (05/18/24) ?Z98.890 - Other specified postprocedural states (ICD-10) History of carpal tunnel surgery of left wrist (04/04/24) ?Z98.890 - Other specified postprocedural states (ICD-10) Status post cataract extraction and insertion of intraocular lens of right eye ?Z98.41 - Cataract extraction status, right eye (ICD-10) ?Z96.1 - Presence of intraocular lens (ICD-10) History of permanent cardiac pacemaker placement ?Z95.0 - Presence of cardiac pacemaker (ICD-10) Status post cataract extraction and insertion of intraocular lens of left eye ?Z98.42 - Cataract extraction status, left eye (ICD-10) ?Z96.1 - Presence of intraocular lens (ICD-10) Status post placement of cardiac pacemaker ?Z95.0 - Presence of cardiac pacemaker (ICD-10) Status post total replacement of hip ?Z96.649 - Presence of unspecified artificial hip joint (ICD-10) History of knee surgery ?Z98.890 - Other specified postprocedural states (ICD-10) History of appendectomy (1946) ?Z90.49 - Acquired absence of other specified parts of digestive tract (ICD- 10) Family History Other Diabetes Social History Narrative: . 4 children. Exercise formally. Nonsmoker. No alcohol. No tobacco products. No illicit drug use. What is your current living situation?: I presently have a place to live Problems where you live: no known problems In the past 12 months, utilities in danger of being shut off: no In past 12 months, lack of transportation kept you from medical appts, meetings, work, or getting things needed for daily living: no In the past 12 mos, have been you worried that your food would run out before you had money to buy more?: never true In the past 12 mos, the food you bought just didn't last and you didn't have money to buy more?: never true Smoking Status: Never smoker How often do you have a drink containing alcohol: never AUDIT-C Alcohol total score: 0 Non-prescribed substance use: denies use How often does anyone, including family, friends and others, physically hurt you : never How often does anyone, including family, friends and others, insult or talk down to you: never How often does anyone, including family, friends and others, threaten you with harm: never How often does anyone, including family, friends and others, scream or curse at you: never Meds Home Medications and Allergies Home Medications ?Medication ?Instructions ?Recorded ?Confirmed ?Type Blood Glucose Meter #1 ea 11/13/21 03/19/25 Rx lancets 30 gauge (2-In-1 Lancet #100 ea 11/13/2103/19 Rx Device) ketoconazole 2 % topical cream 1 applic topical QDAY # 60 grams 09/15/22 04/03/25 Rx aspirin 81 mg tablet,delayed 81 mg PO QDAY 02/11/23 History release (Adult Aspirin Regimen) Held on 04/05/25. Instructions: Resume on 05/11/25. blood sugar diagnostic #100 ea 02/18/23 03/19/25 Rx blood sugar diagnostic (OneTouch #100 ea 02/25/2408/08 Rx Verio test strips) amlodipine 5 mg tablet 5 mg PO QDAY 90 days #90 tab s 01/16/25 04/05/25 Rx glipizide 5 mg tablet See Rx Instructions PO BID # 270 01/16/25 04/05/25 Rx tabs hydrochlorothiazide 50 mg tablet 50 mg PO QDAY #90 tab s 01/16/25 04/05/25 Rx losartan 100 mg tablet 100 mg PO DAILY #90 tabs 07/1104/05/25 Rx rosuvastatin 10 mg tablet 5 mg (1/2 x 10 mg) PO QDAY # 45 tabs 01/16/25 04/03/25 Rx acetaminophen 500 mg capsule 500 - 1,000 mg (1 - 2 x 5 00 mg) PO 04/05/25 Rx Q6H PRN pain #100 caps aspirin 81 mg chewable tablet 81 mg PO BID for DVT pro phylaxis 04/05/25 Rx (Aspirin Childrens) 30 days #60 tabs oxycodone 5 mg tablet 2.5 - 5 mg (0.5 - 1 x 5 mg) PO 04/05/25 Rx Q4-6H PRN Pain #42 tabs rivaroxaban 10 mg tablet (Xarelto) 10 mg PO DAILY DVT prophylaxis 4 04/05/25 Rx days #4 tabs sennosides 8.6 mg tablet (Senna 17.2 mg (2 x 8.6 mg) P O BID PRN 04/05/25 Rx Lax) constipation #100 tabs Allergies Allergy/AdvReac Type Severity Reaction Status Date / Time metformin Allergy Intermediate Verified 04/05/25 07:11 Exam Narrative: Exam Narrative: GEN: Alert and oriented, sitting comfortably in bedside chair HEENT: EOMIs bilaterally, no scleral icterus CV: RRR, + systolic murmur, no concerning features R: LCTA bilaterally Skin: No concerning skin lesions or rashes on exposed skin Neuro: Nonfocal Psych: Appropriate Const: Vital Signs, click to edit/add: Vital Signs - 24 hr 04/05/25 07:42 04/05/25 08:25 04/05/25 08:30 Temperature 98.8 F Pulse Rate 61 66 60 Pulse Rate [Right Pulse Oximeter] Respiratory Rate 20 20 20 Blood Pressure 135/80 138/92 H 112/67 Blood Pressure [Le ft Arm] Pulse Oximetry 98 98 98 Oxygen Delivery Me thod Room Air Nasal Cannula Nasal Cannula Oxygen Flow Rate 2 2 04/05/25 08:35 04/05/25 08:45 04/05/25 11:11 Temperature 97.4 F L Pulse Rate 60 60 61 Pulse Rate [Right Pulse Oximeter] Respiratory Rate 20 20 12 Blood Pressure 108/62 89/56 L 80/46 L Blood Pressure [Le ft Arm] Pulse Oximetry 97 97 94 Oxygen Delivery Me thod Nasal Cannula Nasal Cannula Room Air Oxygen Flow Rate 2 2 04/05/25 11:15 04/05/25 11:20 04/05/25 11:25 Temperature 97.6 F Pulse Rate 60 60 56 L Pulse Rate [Right Pulse Oximeter] Respiratory Rate 11 L 12 16 Blood Pressure 104/58 L 79/57 L 108/58 L Blood Pressure [Le ft Arm] Pulse Oximetry 86 L 100 100 Oxygen Delivery Me thod Room Air OxyMask OxyMask Oxygen Flow Rate 5 5 04/05/25 11:27 04/05/25 11:30 04/05/25 11:33 Temperature Pulse Rate 61 Pulse Rate [Right Pulse Oximeter] Respiratory Rate 16 Blood Pressure 88/51 L 86/51 L 117/70 Blood Pressure [Le ft Arm] Pulse Oximetry 100 Oxygen Delivery Me thod OxyMask Oxygen Flow Rate 5 04/05/25 11:35 04/05/25 11:38 04/05/25 11:40 Temperature 97.6 F 97.6 F Pulse Rate 60 60 Pulse Rate [Right Pulse Oximeter] Respiratory Rate 16 13 Blood Pressure 134/68 103/64 98/59 L Blood Pressure [Le ft Arm] Pulse Oximetry 100 97 Oxygen Delivery Me thod OxyMask Room Air Oxygen Flow Rate 5 04/05/25 11:43 04/05/25 11:45 04/05/25 11:48 Temperature Pulse Rate 60 Pulse Rate [Right Pulse Oximeter] Respiratory Rate 15 Blood Pressure 98/57 L 90/56 L 93/57 L Blood Pressure [Le ft Arm] Pulse Oximetry 97 Oxygen Delivery Me thod Room Air Oxygen Flow Rate 04/05/25 11:50 04/05/25 11:53 04/05/25 11:55 Temperature 97.6 F Pulse Rate 60 60 Pulse Rate [Right Pulse Oximeter] Respiratory Rate 15 15 Blood Pressure 151/82 H 123/62 117/61 Blood Pressure [Le ft Arm] Pulse Oximetry 96 96 Oxygen Delivery Me thod Room Air Room Air Oxygen Flow Rate 04/05/25 11:58 04/05/25 12:00 04/05/25 12:03 Temperature 97.6 F Pulse Rate 60 Pulse Rate [Right Pulse Oximeter] Respiratory Rate 15 Blood Pressure 107/61 98/62 157/82 H Blood Pressure [Le ft Arm] Pulse Oximetry 100 Oxygen Delivery Me thod Room Air Oxygen Flow Rate 04/05/25 12:05 04/05/25 12:08 04/05/25 12:10 Temperature Pulse Rate 60 60 Pulse Rate [Right Pulse Oximeter] Respiratory Rate 16 16 Blood Pressure 132/70 108/63 100/62 Blood Pressure [Le ft Arm] Pulse Oximetry 97 97 Oxygen Delivery Me thod Room Air Room Air Oxygen Flow Rate 04/05/25 12:15 04/05/25 12:20 04/05/25 12:25 Temperature 97.6 F Pulse Rate 60 60 60 Pulse Rate [Right Pulse Oximeter] Respiratory Rate 16 16 16 Blood Pressure 97/55 L 110/64 100/61 Blood Pressure [Le ft Arm] Pulse Oximetry 97 97 98 Oxygen Delivery Me thod Room Air Room Air Room Air Oxygen Flow Rate 04/05/25 12:30 04/05/25 12:35 04/05/25 12:40 Temperature 97.6 F Pulse Rate 60 60 60 Pulse Rate [Right Pulse Oximeter] Respiratory Rate 16 12 16 Blood Pressure 91/59 L 94/56 L 95/59 L Blood Pressure [Le ft Arm] Pulse Oximetry 100 100 100 Oxygen Delivery Ia thod Room Air Room Air Room Air Oxygen Flow Rate 04/05/25 12:45 04/05/25 13:00 04/05/25 13:02 Temperature 97.6 F 97.0 F L Pulse Rate 60 Pulse Rate [Right Pulse Oximeter] 73 71 Respiratory Rate 16 16 16 Blood Pressure 97/56 L Blood Pressure [Le ft Arm] 96/50 L 98/50 L Pulse Oximetry 100 96 [facility] Room Air Oxygen Flow Rate 04/05/25 13:08 04/05/25 13:15 04/05/25 13:30 Temperature Pulse Rate Pulse Rate [Right Pulse Oximeter] 60 61 Respiratory Rate Blood Pressure Blood Pressure [Le ft Arm] 91/72 102/79 Pulse Oximetry 95 Oxygen Delivery Ia thod Room Air Oxygen Flow Rate 04/05/25 13:45 Temperature 97.3 F L Pulse Rate Pulse Rate [Right Pulse Oximeter] 64 Respiratory Rate 18 Blood Pressure Blood Pressure [Le ft Arm] 102/50 L Pulse Oximetry 99 Oxygen Delivery Ia thod Room Air Oxygen Flow Rate Assessment and Plan Assessment and plan (1) S/P hip replacement: Status: Acute (2) Moderate calcific aortic stenosis: Status: Acute (3) Type 2 diabetes mellitus: Status: Chronic (4) Hypertension: Status: Chronic (5) Hyperlipemia: Status: Chronic (6) Pacemaker: Status: Acute (7) CKD (chronic kidney disease), stage III: Status: Acute Plan - pain management and prophylaxis per orthopedic surgery team - continue home medications for comorbidities - anticipate routine postoperative course
[2025-04-05] MEDS: CEFAZOLIN 2 GM in 0.9 % SODIUM CHLORIDE Mini-bag 100 ML IVPB (18:32)
--- NOTE | 2025-04-05 20:35 | PC.NURSE ---
Nursing Care Hours: [id number] Pt this shift arrived to unit in stable condition. Completed 6 hour post op vitals without complications. Waiting on void, drinking fluids, IV fluids running. Pedal pulses present and bandage CDI.
[2025-04-05] MEDS: SENNOSIDES 1 TAB TABLET 2 TAB PO (21:12)
[2025-04-05] MEDS: ROSUVASTATIN CALCIUM 10 MG TABLET 5 MG PO (21:12)
[2025-04-06 00:49] VITALS: BP 137/97; PULSE 70; RESP 18; TEMP 37.1; O2SAT 97
[2025-04-06 00:51] VITALS: RESP 18; O2SAT 97
[2025-04-06] MEDS: CEFAZOLIN 2 GM in 0.9 % SODIUM CHLORIDE Mini-bag 100 ML IVPB (02:14)
[2025-04-06] MEDS: ACETAMINOPHEN 500 MG TABLET 1000 MG PO ×2 (02:53→08:16)
[2025-04-06 02:59] VITALS: BP 117/73; PULSE 75; RESP 16; TEMP 37; O2SAT 94
--- NOTE | 2025-04-06 05:45 | PC.NURSE ---
Shift note ([id number]): Patient pleasant,?alert?and oriented.?Ambulated with walker, gait belt and?assist?of one.?Reported feeling a little dizzy when ambulating to bathroom during night.?VSS.?Rated?pain 3-510. Given PRN Oxycodone.?Dressing?C,D&I. CMS intact.?
[2025-04-06 06:28] LABS: Hematocrit* 33.0 % (37.0-53.0); Hemoglobin* 10.8 gm/dL (13.5-17.5); Immature Granulocytes Abs Auto 0.02 K/uL (0.00-0.30); Immature Granulocytes Pct Auto 0.2 %; Lymphocytes Absolute Auto 0.70 K/uL (0.90-2.90); Mean Corpuscular HGB Conc 33 gm/dL (32-36); Mean Corpuscular Hemoglobin 29 pg (26-34); Mean Corpuscular Volume 87 fL (80-100); RDW Coefficient of Variation % 13.7 % (11.5-15.5); Red Blood Count* 3.78 m/uL (4.30-5.90); Slide Review Reflex No; White Blood Count* 10.92 K/uL (4.50-11.00)
[2025-04-06 06:43] LABS: Chloride* 94 mmol/L (96-114); Sodium* 127 mmol/L (135-149)
[2025-04-06 06:44] LABS: Potassium* 4.0 mmol/L (3.6-5.1)
[2025-04-06 06:46] LABS: Blood Urea Nitrogen* 25 mg/dL (7-30); Creatinine* 1.2 mg/dL (0.5-1.5); Est. Creatinine Clearance* 46.47; Estimated Glomerular Filt Rate 59 ml/min
[2025-04-06 06:47] LABS: Anion Gap 5 mEq/L (7-15); Calcium* 8.6 mg/dL (8.4-10.6); Carbon Dioxide* 28 mmol/L (20-32); Glucose* 193 mg/dL (60-115)
[2025-04-06 07:00] VITALS: RESP 18; O2SAT 90
[2025-04-06 08:00] VITALS: BP 125/62; PULSE 71; RESP 18; TEMP 36.6; O2SAT 90
[2025-04-06] MEDS: ROSUVASTATIN CALCIUM 10 MG TABLET 5 MG PO (09:24)
[2025-04-06] MEDS: RIVAROXABAN 10 MG TABLET PO (09:24)
[2025-04-06] MEDS: SENNOSIDES 1 TAB TABLET 2 TAB PO (09:24)
--- NOTE | 2025-04-06 11:57 | PC.NURSE ---
Discharge: Patient pleasant and cooperative, A&O. VSS, afebrile. SpO2 maintained above 90% on RA. Pt reports pain on his right hip this shift, managed with PRN medication, see MAR. Dressing to right hip C/D/I. CMS intact. Tolerating regular diet, denies nausea. 1A walker and gait belt. IV's removed with tip intact. Discharge instructions provided, all questions answered. D/C to home with .
--- NOTE | 2025-04-06 12:52 | PM.ORPN ---
Subjective Subjective Time Seen by Provider: 07:30 Date Seen: 04/06/25 Principal diagnosis: Status post right hip replacement Interval history: Todd is comfortable this morning at rest. He had some dizziness going to the bathroom last evening. He will discharge to home today. Ortho Exam Narrative Exam Narrative: Alert and oriented x3. Patient is in no acute distress. Converses without labored breathing. Hearing is grossly intact. Ambulates with a walker. Examination of the right lower extremity shows the dressing is intact right hip. Mild tenderness about The thigh. Mild soft tissue edema. CMS intact right lower extremity. Calves are soft and nontender. Const Vital Signs, click to edit/add: Vital Signs - 24 hr 04/05/25 13:00 04/05/25 13:02 04/05/25 13:08 Temperature 97.0 F L Pulse Rate [Right Pulse Oximeter] 73 71 Respiratory Rate 16 16 Blood Pressure [Left Arm] 96/50 L 98/50 L Pulse Oximetry 96 96 95 Oxygen Delivery Method Room Air Room Air Room Air 04/05/25 13:15 04/05/25 13:30 04/05/25 13:45 Temperature 97.3 F L Pulse Rate [Right Pulse Oximeter] 60 61 64 Respiratory Rate 18 Blood Pressure [Left Arm] 91/72 102/79 102/50 L Pulse Oximetry 99 Oxygen Delivery Method Room Air 04/05/25 14:15 04/05/25 14:45 04/05/25 16:45 Temperature Pulse Rate [Right Pulse Oximeter] 66 62 69 Respiratory Rate Blood Pressure [Left Arm] 107/96 H 115/58 L 109/52 L Pulse Oximetry 98 Oxygen Delivery Method Room Air 04/05/25 17:45 04/05/25 18:45 04/05/25 21:00 Temperature 98.6 F Pulse Rate [Right Pulse Oximeter] 60 60 65 Respiratory Rate 18 18 Blood Pressure [Left Arm] 104/62 132/61 107/51 L Pulse Oximetry 92 Oxygen Delivery Method Room Air 04/06/25 00:49 04/06/25 00:51 04/06/25 02:59 Temperature 98.7 F 98.6 F Pulse Rate [Right Pulse Oximeter] 70 75 Respiratory Rate 18 18 16 Blood Pressure [Left Arm] 137/97 H 117/73 Pulse Oximetry 97 97 94 Oxygen Delivery Method Room Air Room Air Room Air 04/06/25 07:00 04/06/25 08:00 04/06/25 08:00 Temperature 97.9 F Pulse Rate [Right Pulse Oximeter] 71 71 Respiratory Rate 18 18 18 Blood Pressure [Left Arm] 125/62 Pulse Oximetry 90 90 Oxygen Delivery Method Room Air Room Air Assessment and Plan Assessment and plan (1) Status post right hip replacement: Problem details: 04/05/2025, Dr. Cook Status: Acute Assessment and Plan: Todd is a very kind soul. He is thankful to Joyce Ignacio Missy in surgery scheduling. Plan for discharge is today, and when they meets discharge criteria. DVT prophylaxis upon discharge includes Xarelto 10mg daily for a total of 5 days, then Aspirin 81mg twice daily for 30 days]. Remove dressing 1 week. Observe wound and phone Orthopedics with any questions or concerns Use Ice on operative hip unrestricted. Return to clinic in 1-2 weeks as scheduled for a wound check Return to clinic in 6 weeks with surgeon Minimize narcotic use. Wean off and discontinue soon as possible. Activities as tolerated. No strenuous activity. Attend outpt PT
== END 2025-04-06 11:30 | disposition home or self-care (01) ==
LOC: OR 06:35 → MEDSURG 06:36
PROVIDERS: Family Medicine; PCP Nurse Practitioner Family; Visit Provider Orthopaedic Surgery Sports Medicine
PROC: (CPT 27130; principal; 2025-04-05 08:45)
DX: M16.11 Unilateral primary osteoarthritis, right hip (principal); G89.18 Other acute postprocedural pain; I35.0 Nonrheumatic aortic (valve) stenosis; I12.9 Hypertensive chronic kidney disease with stage 1 through stage 4 chronic kidney disease, or unspecified chronic kidney disease; N18.30 Chronic kidney disease, stage 3 unspecified; E11.22 Type 2 diabetes mellitus with diabetic chronic kidney disease; Z95.0 Presence of cardiac pacemaker; I25.10 Atherosclerotic heart disease of native coronary artery without angina pectoris; Z79.82 Long term (current) use of aspirin; E78.5 Hyperlipidemia, unspecified
CPT/HCPCS: 27130; 01214; 36415; 64450; 73501; 76000; 76942; 80048; 82962; 85025; 86850; 86900; 86901; 97110; 97116; 97161; 97165; 97530; 97535; 99100; A9270; C1776; J0690; J2250; J2371; J2405; J2704; J2795; J3010; J7120

== ENCOUNTER 2025-04-13 13:39 | Outpatient (CLI) | payer MEDICARE, BC, SELFPAY ==
--- NOTE | 2025-04-13 14:45 | CRLHL7_ITS ---
For Patients: As a result of the Century Cures Act, medical imaging exams and procedure reports are released immediately into your electronic medical record. You may view this report before your referring provider. If you have questions, please contact your health care provider. INDICATION: Leg pain and swelling, status post right total hip arthroplasty TECHNIQUE: Ultrasound venous duplex lower right extremity. Compression venous exam was performed using valera-scale, color Doppler, and spectral Doppler imaging. COMPARISON: None. FINDINGS: Sonographic imaging demonstrates the right common femoral, deep femoral, superficial femoral, popliteal, posterior tibial and greater saphenous and the contralateral left common femoral veins to be fully compressible with normal color Doppler blood flow. IMPRESSION: Normal right lower extremity venous ultrasound, no sign of deep venous thrombosis. Dictated by Jay Stark MD @ 04/13/2025 2:37:57 PM (Electronically Signed)
== END 2025-04-13 13:40 | disposition home or self-care (01) ==
PROVIDERS: PCP Nurse Practitioner Family; Visit Provider Physician Assistant Surgical
DX: M79.661 Pain in right lower leg (principal); R22.41 Localized swelling, mass and lump, right lower limb; Z96.641 Presence of right artificial hip joint
CPT/HCPCS: 93971

== ENCOUNTER 2025-05-08 09:45 | Outpatient (RCR) | payer MEDICARE, BC, SELFPAY ==
--- NOTE | 2025-04-10 10:00 | PT.OPEX ---
PT [place] Outpatient Eval PT [facility] Outpatient Eval Start: 04/06/25 15:34 Freq: Status: Active Protocol: Document 04/10/25 08:40 HLA (Rec: 04/10/25 09:56 HLA [id number]) E-signed By Dorys Hernandez, PT, DPT Physical Therapy Outpatient Evaluation Insurance Information Recert Due Date 07/08/25 Insurance Name Medicare B,Blue Cross/Blue Shield Medical Diagnosis R ant DAVEY Treating Diagnosis weakness, impaired ROM, impaired amb, pain post R DAVEY Referring MD Cook Subjective Preferred Name Todd Subjective Todd has had a lot of pain since his surgery. He has been icing, using oxycodone and acetaminophen, taking both together, some reflux with meds but taking Tums for that. He finds the pain 'isn't that bad.' Up with walker, using ice and cbd cream (not on incision). He is doing his exercises. Walking is harder because he struggles getting out of the chair. 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 Worked on reciprocal gt, pushing walker steadily/not picking up walker. 200 feet x 2. Stairs step to with railing and cane 3 x 2 reps Balance fair with walker Sensation/Reflexes intact to light touch Other/Pertinent transfers: sit<>stand 2 UE support, vc to not extend Objective knees first, sit<>supine min assist of R LE, car min assist Functional Test LEFS 13/80 or 16.3% Performed & Score Assessment Assessment/ Todd is an 84-year-old male with hx of DM2, CKD3, Impression bradycardia with pacemaker, aortic stenosis, complete heart block, CAD, HTN, hyperlipidemia and B TKA now 1 week s/p R ant DAVEY. Pt at baseline is ind amb, drives. Lives with spouse in 1 level home, 3 step entry with railings. Pt today reports challenges with car transfer and up to stand. Pain is managed. Spouse here for training. Pt presents with edema R thigh to ankle. Transfers labored, min assist of R LE on/off bed, 2 UE support sit<>Stand, vc not to extend hips first. He amb with step to pattern, able to get reciprocal gt with cues 200 feet x 2 with walker. Stairs rail + cane cga, would benefit from 2nd rail at home. Updated his HEP, added stretches and strengthening ex, advanced gt reps at home with walker. Pt presents with pain, stiffness, weakness R hip post DAVEY, impaired transfers/amb and stairs. 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 Primary Functional weakness, impaired ROM, impaired amb, pain post R DAVEY Limitations Plan of Care Rehabilitation Good Potential Physical Therapy Within 4-6 weeks Goals 1. Pt will amb level surfaces 20 min without an assistive device and no evidence of limp. 2. Pt will ascend/descend 13 stairs with railing reciprocally, safely and independently for household and community mobility. 3. Pt will demonstrate normal strength of surgical hip to prevent substitution of movement, prevent falls with mobility. 4. Pt will be independent in home ex program to promote strength and mobility and to prevent falls. Coordination/ Patient Caregiver Communication With Treatment Plan/ Compression Garments,Dry Needling,Electrical Direct Interventions Stimulation,Gait Training,Iontophoresis,Manual Therapy, Neuromuscular Re-ed,Self-Care/Home Management, Therapeutic Activities,Therapeutic Exercises Patient Will Be Completion of LTG(s),Skills Plateau,Independent w/HEP, Discharged From Independently Progressing Therapy Evaluation Billing Untimed Code 25 Treatment Minutes PT Eval No Charge No Complexity Low Certification Information Initial 04/10/25 Certification Date Ending Certification 07/08/25 Date Provider Signature Yes Required Provider Signature POC & Medical Necessity Shows Agreement With Physician NPI Number Write NPI# Here Physician Comment/ : Change Physician Signature Please Sign/Date Here & Date Requested
== END 2025-05-08 12:03 | disposition home or self-care (01) ==
PROVIDERS: PCP Nurse Practitioner Family; Visit Provider Orthopaedic Surgery Sports Medicine
DX: Z47.1 Aftercare following joint replacement surgery (principal); Z96.641 Presence of right artificial hip joint; Z51.89 Encounter for other specified aftercare
CPT/HCPCS: 97110; 97161